=== PATIENT | male | born 1955 ===

== ENCOUNTER 2017-03-19 08:37 | Inpatient (IN) | payer MEDICARE ==
[2017-03-19] MEDS ORDERED: Sodium Chloride 0.9% 1,000 ML IV STA ×2 (09:37→11:18)
--- NOTE | 2017-03-19 10:49 | CT ---
PROCEDURE: CT Abdomen and Pelvis without intravenous contrast HISTORY: weakness, failure to thrive COMPARISON: None. TECHNIQUE: Unenhanced study. Neither oral nor intravenous contrast administered. Sensitivity and specificity for acute inflammatory processes limited by the absence of oral and intravenous contrast. . Radiation dose: Total exam DLP = 710.71 mGy-cm. This CT exam was performed using one or more of the following dose reduction techniques: Automated exposure control, adjustment of the mA and/or kV according to patient size, and/or use of iterative reconstruction technique. FINDINGS: LOWER THORAX: Subsegmental right middle lobe infiltrate. LIVER: Unremarkable. No gross lesion or ductal dilatation. GALLBLADDER AND BILE DUCTS: Unremarkable. PANCREAS: Unremarkable. No gross lesion or ductal dilatation. SPLEEN: Unremarkable. ADRENALS: Unremarkable. No mass. KIDNEYS AND URETERS: Unremarkable. No hydronephrosis. No solid mass. VASCULATURE: Unremarkable. No aortic aneurysm. BOWEL: Fecal impaction/ constipation without mechanical obstruction. APPENDIX: Unremarkable. Normal appendix. PERITONEUM: Unremarkable. No free fluid. No free air. LYMPH NODES: Unremarkable. No enlarged lymph nodes. BLADDER: Unremarkable. REPRODUCTIVE: Unremarkable. BONES: No acute fracture. OTHER FINDINGS: None. IMPRESSION: No significant or acute findings to account for/ related to the clinical presentation. Limitations of the current examination: Absence of oral contrast and IV contrast. Patient related motion induced artifact.
--- NOTE | 2017-03-19 10:50 | RAD ---
PROCEDURE: CHEST RADIOGRAPH, 1 VIEW. 09:40. Technique: Single view portable semi erect @ HISTORY: weakness COMPARISON: None available. FINDINGS: LUNGS: Clear. PLEURA: No pneumothorax or pleural fluid seen. CARDIOVASCULAR: Normal. OSSEOUS STRUCTURES: No significant abnormalities. VISUALIZED UPPER ABDOMEN: Normal. OTHER FINDINGS: None. IMPRESSION: No active disease.
[2017-03-19 10:51] LABS: MONO # 1.2 K/uL (0.0-0.8)
--- NOTE | 2017-03-19 10:51 | C.PDOC ---
History Of Present Illness 61 year old male with a Hx of head injury in 2006 who presents to the ER because as per he has had become increasingly weaker over the past month. states over the years the patient has declined in cognitive function; she states 2 years ago he because nonverbal and is unable to control urine or bowel movements, however, reports that he has always been physically strong until now. reports patient has been losing an increased amount of weight and has become more confused; she brought in in today because he did not eat or drink yesterday. denies patient has had fever, chills, or vomiting. Time Seen by Provider: 03/19/17 09:12 Chief Complaint (Nursing): Weakness/Neurological Deficit History Per: Family History/Exam Limitations: no limitations Onset/Duration Of Symptoms: Days Current Symptoms Are (Timing): Still Present Seizure Or Post-ictal Symptoms: None Fall Associated With With Symptoms: No Recent travel outside of the [place]: No - Symptoms Of CVA Associated Symptoms: New Confusion. denies: Impaired Speech, Seizure Activity, New Vision Deficit(Left), New Vision Deficit(Right), Decreased Ability To Walk, Other Recent Aspirin Use: Unknown Current Coumadin Use?: Unknown Recent Head Trauma: No Past Medical History Reviewed: Historical Data, Nursing Documentation, Vital Signs Vital Signs: Last Vital Signs Temp 97.9 F 03/19/17 11:18 Pulse 120 H 03/19/17 13:36 Resp 24 03/19/17 13:36 BP 113/75 03/19/17 13:36 Pulse Ox 98 03/19/17 13:36 - Medical History PMH: No Chronic Diseases Surgical History: No Surg Hx Family History: States: Unknown Family Hx - Social History Hx Alcohol Use: No Hx Substance Use: No Review Of Systems Constitutional: Positive for: Weight loss. Negative for: Fever, Chills Gastrointestinal: Negative for: Vomiting, Abdominal Pain Neurological: Positive for: Confusion Physical Exam - Physical Exam Appears: Non-toxic, Chronically Ill, Other (Uncomfortable, Malnourished) Skin: Warm, Dry Head: Atraumatic, Normacephalic Eye(s): bilateral: Normal Inspection Oral Mucosa: Dry Neck: Normal, Supple Chest: Symmetrical, No Tenderness Cardiovascular: Rhythm Regular, No Murmur Respiratory: Normal Breath Sounds, No Rales, No Rhonchi, No Wheezing Gastrointestinal/Abdominal: Soft, No Tenderness, No Guarding Extremity: Other (Ecchymosis to right shoulder. Refusing to move right arm.) Neurological/Psych: No Oriented x3 (awake and alert, not verbal) ED Course And Treatment - Laboratory Results Result Diagrams: 03/19/17 10:46 03/19/17 10:46 O2 Sat by Pulse Oximetry: 98 (Room air) Pulse Ox Interpretation: Normal - Radiology CXR: Interpreted by Me, Viewed By Me CXR Interpretation: Yes: No Acute Disease - Other Rad Right Shoulder X-ray X-Ray: Viewed By Me, Read By Radiologist Interpretation: PROCEDURE: Radiographs of the Right Shoulder. HISTORY: ecchymosis, ? injury. COMPARISON: No prior. FINDINGS: BONES: Normal. No fracture. JOINTS: Normal. Glenohumeral and acromioclavicular joints preserved. No osteoarthritis. SOFT TISSUES: Normal. OTHER FINDINGS: None. IMPRESSION: Normal radiographs of the right shoulder. - CT Scan/US Head CT Other Rad Studies (CT/US): Read By Radiologist, Radiology Report Reviewed CT/US Interpretation: FINDINGS: HEMORRHAGE: No intracranial hemorrhage. BRAIN : No mass effect or edema. Moderate atrophy greater than expected for patient age. No evidence of acute infarct. VENTRICLES: Dilatation of the 3rd and lateral ventricles without dilatation of the 4th ventricle. Likely due to central volume loss consistent with surrounding atrophy. Cannot rule out chronic compensated obstructive hydrocephalus. Questionable very small arachnoid cyst in the right temporal fossa. CALVARIUM: Unremarkable. PARANASAL SINUSES: Unremarkable as visualized. No significant inflammatory changes. MASTOID AIR CELLS: Unremarkable as visualized. No inflammatory changes. OTHER FINDINGS: There is deformity of the normal shape of the right and left globe consistent with either staphyloma or coloboma. IMPRESSION: No intracranial mass, hemorrhage or evidence of acute infarct. Atrophy greater than expected for patient age. Mild ventricular dilatation most likely secondary to central volume loss. Cannot rule out chronic compensated hydrocephalus. Possible small right temporal arachnoid cyst. Bilateral coloboma /staphyloma incidentally noted. CT abd/pel Other Rad Studies (CT/US): Read By Radiologist, Radiology Report Reviewed CT/US Interpretation: FINDINGS: LOWER THORAX: Subsegmental right middle lobe infiltrate. LIVER: Unremarkable. No gross lesion or ductal dilatation. GALLBLADDER AND BILE DUCTS: Unremarkable. PANCREAS: Unremarkable. No gross lesion or ductal dilatation. SPLEEN: Unremarkable. ADRENALS: Unremarkable. No mass. KIDNEYS AND URETERS: Unremarkable. No hydronephrosis. No solid mass. VASCULATURE: Unremarkable. No aortic aneurysm. BOWEL: Fecal impaction/ constipation without mechanical obstruction. APPENDIX: Unremarkable. Normal appendix. PERITONEUM: Unremarkable. No free fluid. No free air. LYMPH NODES: Unremarkable. No enlarged lymph nodes. BLADDER: Unremarkable. REPRODUCTIVE : Unremarkable. BONES: No acute fracture. OTHER FINDINGS: None. IMPRESSION : No significant or acute findings to account for/ related to the clinical presentation. Limitations of the current examination: Absence of oral contrast and IV contrast. Patient related motion induced artifact. Progress Note: Head CT, abdominal pain, CXR, abd/pel CT, right shoulder x-ray. blood work, and urinalysis ordered. IV fluids administered. patient found to have elevated WBC and severely elevated Na. Case was d/w hospitalist who requested patient to be admitted to tele to . Disposition - Disposition Disposition Time: 11:31 Condition: SERIOUS - Clinical Impression Clinical Impression: Weakness, Hypernatremia, Leucocytosis - Scribe Statement The provider has reviewed the documentation as recorded by the Scribalexandra Forte All medical record entries made by the Joeibalexandra were at my direction and personally dictated by me. I have reviewed the chart and agree that the record accurately reflects my personal performance of the history, physical exam, medical decision making, and the department course for this patient. I have also personally directed, reviewed, and agree with the discharge instructions and disposition.
--- NOTE | 2017-03-19 10:51 | RAD ---
PROCEDURE: Radiographs of the Right Shoulder HISTORY: ecchymosis, ? injury COMPARISON: No prior. FINDINGS: BONES: Normal. No fracture. JOINTS: Normal. Glenohumeral and acromioclavicular joints preserved. No osteoarthritis. SOFT TISSUES: Normal. OTHER FINDINGS: None. IMPRESSION: Normal radiographs of the right shoulder. No preliminary report provided by emergency department personnel.
[2017-03-19 11:01] LABS: ALBUMIN 3.7 g/dL (3.5-5.0)
[2017-03-19 11:04] LABS: ALB/GLOB RATIO 0.9 (1.0-2.1); CALCIUM 9.2 mg/dl (8.6-10.4)
[2017-03-19 11:05] LABS: INR 1.3
--- NOTE | 2017-03-19 11:06 | CT ---
PROCEDURE: CT HEAD WITHOUT CONTRAST. HISTORY: weakness, dementia COMPARISON: None available. TECHNIQUE: Axial computed tomography images were obtained through the head/brain without intravenous contrast. Radiation dose: Total exam DLP = 1213.60 mGy-cm. This CT exam was performed using one or more of the following dose reduction techniques: Automated exposure control, adjustment of the mA and/or kV according to patient size, and/or use of iterative reconstruction technique. FINDINGS: HEMORRHAGE: No intracranial hemorrhage. BRAIN: No mass effect or edema. Moderate atrophy greater than expected for patient age. No evidence of acute infarct. VENTRICLES: Dilatation of the 3rd and lateral ventricles without dilatation of the 4th ventricle. Likely due to central volume loss consistent with surrounding atrophy. Cannot rule out chronic compensated obstructive hydrocephalus. Questionable very small arachnoid cyst in the right temporal fossa. CALVARIUM: Unremarkable. PARANASAL SINUSES: Unremarkable as visualized. No significant inflammatory changes. MASTOID AIR CELLS: Unremarkable as visualized. No inflammatory changes. OTHER FINDINGS: There is deformity of the normal shape of the right and left globe consistent with either staphyloma or coloboma. IMPRESSION: No intracranial mass, hemorrhage or evidence of acute infarct. Atrophy greater than expected for patient age. Mild ventricular dilatation most likely secondary to central volume loss. Cannot rule out chronic compensated hydrocephalus. Possible small right temporal arachnoid cyst. Bilateral coloboma/staphyloma incidentally noted.
[2017-03-19 11:16] LABS: TROPONIN I 0.083 ng/mL (0.00-0.120)
[2017-03-19 11:18] LABS: CK-MB 0.26 ng/mL (0.0-3.38)
[2017-03-19 11:20] LABS: BASO % 0.1 % (0.0-2.0); EOS % 0.1 % (0.0-4.0); HEMOGLOBIN 13.5 g/dL (12.0-18.0); LYMPH # 1.7 K/uL (1.0-4.3); LYMPH % 7.8 % (20.0-40.0); MEAN CELL VOLUME 77.1 fL (80.0-94.0); MEAN CORPUSCULAR HEMOGLOBIN 23.8 pg (27.0-31.0); MEAN CORPUSCULAR HGB CONC 30.8 g/dL (33.0-37.0); MEAN PLATELET VOLUME 10.4 fL (7.2-11.7); MONO % 5.2 % (0.0-10.0); NEUT # 19.4 K/uL (1.8-7.0); NEUT % 86.8 % (50.0-75.0); PLATELET COUNT 206 K/uL (130-400); RBC 5.68 Mil/uL (4.40-5.90); WHITE BLOOD COUNT 22.4 K/uL (4.8-10.8)
[2017-03-19] MEDS ORDERED: Sodium Chloride 0.9% 0 ML ONE (11:29)
[2017-03-19 11:39] LABS: LYMPHOCYTE 9 % (20-40); MONOCYTE 6 % (0-10); NEUTROPHIL 85 % (50-75); PLATELET ESTIMATE NORMAL (NORMAL); TOTAL CELLS COUNTED 100
[2017-03-19 11:40] LABS: ANISOCYTOSIS SLIGHT; POIKILOCYTOSIS SLIGHT
[2017-03-19 11:58] LABS: SQUAMOUS EPITHIAL < 1 /hpf (0-5); URINE BILIRUBIN NEGATIVE (NEGATIVE); URINE BLOOD NEGATIVE (NEGATIVE); URINE CLARITY Hazy (Clear); URINE COLOR Yellow (YELLOW); URINE GLUCOSE (UA) NORMAL (Normal); URINE HYALINE CAST 0-2 /lpf (0-2); URINE LEUKOCYTE ESTERASE NEG Leu/uL (Negative); URINE NITRATE NEGATIVE (NEGATIVE); URINE PROTEIN NEGATIVE (NEGATIVE); URINE UROBILINOGEN NORMAL mg/dL (0.2-1.0)
[2017-03-19] MEDS ORDERED: Sodium Chloride 0.45% 1,000 ML IV SCH (12:45)
[2017-03-19 13:17] LABS: VENOUS BLOOD GAS BASE EXCESS 2.2 mmol/L (0.0-2.0); VENOUS BLOOD GAS PCO2 54 mmHg (40-60); VENOUS BLOOD GAS PO2 26 mm/Hg (30-55); VENOUS BLOOD PH 7.34 (7.32-7.43)
[2017-03-19] MEDS ORDERED: cefTRIAXone IV 1 gm in Dextros 50 ML IVPB ONE (13:17)
[2017-03-19] MEDS ORDERED: Sodium Chloride 0.9% 1,000 ML ONE (13:17)
[2017-03-19] MEDS ORDERED: Sodium Chloride 0.45% 1,000 ML IV ONE (13:56)
[2017-03-19] MEDS ORDERED: Piperacill/Tazo 3.375gm in Dex 3.375 GM/50 ML BAG IVPB SCH (15:00)
[2017-03-19] MEDS: Sodium Chloride 0.45% 1,000 ML IV SCH ×2 (16:09→17:31)
[2017-03-19] MEDS: Piperacill/Tazo 2.25gm in Dex 2.25 GM/50 ML BAG IVPB SCH ×2 (18:36→23:17)
[2017-03-19] MEDS: Vancomycin 500mg/D5W 100 ml 500 MG/100 ML BAG IVPB SCH (18:37)
--- NOTE | 2017-03-19 21:09 | CP.PCM.HP ---
<Jeanie Gramajo - Last Filed: 03/19/17 21:41> History of Present Illness - History of Present Illness History of Present Illness: CC: "Weakness, Neurological Deficit " HPI: 61 year old male with a Hx of head injury in 2006 who presents to the ER because as per he has had become increasingly weaker over the past month. states over the years the patient has declined in cognitive function; she states 2 years ago he because nonverbal and is unable to control urine or bowel movements, however, reports that he has always been physically strong until now. reports patient has been losing an increased amount of weight and has become more confused; she brought in in today because he did not eat or drink yesterday. denies patient has had fever, chills, or vomiting. Patient is non-verbal and was not at bedside during the encounter therefore HPI as per ED was used. 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 smoker Present on Admission - Present on Admission Any Indicators Present on Admission: No Past Patient History - Past Social History Smoking Status: Former Smoker - NEUROLOGICAL Hx Neurological Disorder: Yes - PSYCHIATRIC Hx Substance Use: No - SURGICAL HISTORY Hx Herniorrhaphy: Yes - ANESTHESIA Hx Anesthesia: Yes Hx Anesthesia Reactions: No Hx Malignant Hyperthermia: No Meds Allergies/Adverse Reactions: Allergies Allergy/AdvReac Type Severity Reaction Status Date / Time No Known Allergies Allergy Verified 03/19/17 08:51 Physical Exam - Constitutional Appears: Other Additional comments: Non-verbal, somnolent - Head Exam Head Exam: NORMAL INSPECTION - ENT Exam ENT Exam: Mucous Membranes Dry - Respiratory Exam Respiratory Exam: NORMAL BREATHING PATTERN (Limited exam) - Cardiovascular Exam Cardiovascular Exam: REGULAR RHYTHM, +S1, +S2 - GI/Abdominal Exam GI & Abdominal Exam: Normal Bowel Sounds, Soft - Extremities Exam Extremities exam: Positive for: pedal pulses present - Neurological Exam Neurological exam: Motor Sensory Deficit - Skin Skin Exam: Dry, Normal Color, Warm Results - Vital Signs Recent Vital Signs: Last Vital Signs Temp 98.7 F 03/19/17 15:08 Pulse 108 H 03/19/17 15:08 Resp 18 03/19/17 15:08 BP 116/80 03/19/17 15:08 Pulse Ox 100 03/19/17 15:08 - Labs Result Diagrams: 03/19/17 10:46 03/19/17 10:46 Labs: Laboratory Results - last 24 hr 03/19/17 03/19/17 11:45 13:09 pO2 26 L VBG pH 7.34 VBG pCO2 54 VBG HCO3 25.2 VBG Total CO2 30.8 H VBG O2 Sat (Calc) 45.4 VBG Base Excess 2.2 H VBG Potassium 3.8 Sodium 184.0 H* Chloride 145.0 H Glucose 110 Lactate 1.9 Crit Value Called To Dr.phem pike Crit Value Called By lesly Gonzalez,carlos Crit Value Read Back Y Blood Gas Notified Time 1320 Venous Blood Potassium 3.8 Urine Color Yellow Urine Clarity Hazy Urine pH 5.0 Ur Specific [place] 1.017 Urine Protein Negative Urine Glucose (UA) Normal Urine Ketones Negative Urine Blood Negative Urine Nitrate Negative Urine Bilirubin Negative Urine Urobilinogen Normal Ur Leukocyte Esterase Neg Urine WBC (Auto) 2 Urine RBC (Auto) 1 Ur Squamous Epith Cells < 1 Hyaline Casts 0-2 Assessment & Plan (1) Weakness Assessment and Plan: Secondary to significant dehydration Started on 1/2NS @ 150mls/hr U/A : Negative Head CT: No intracranial mass, hemorrhage or evidence of acute infarct. Atrophy greater than expected for patient age. Mild ventricular dilatation most likely secondary to central volume loss. Cannot rule out chronic compensated hydrocephalus. Possible small right temporal arachnoid cyst. Bilateral coloboma/staphyloma incidentally noted. Chest -X ray: No active disease Abdomen/pelvis CT: No significant or acute findings to account for/ related to the clinical presentation. Limitations of the current examination: Absence of oral contrast and IV contrast. Patient related motion induced artifact. Status: Acute (2) Hypernatremia Assessment and Plan: Possibly secondary to severe dehydration ABG (Sodium: 184); Chemistry (Sodium 176) 1/2NS@ 150mls/hr Goal: to drop by <10 points in 24 hours * Stop fluids if sodium level drops to 170-160 within 24 hours * Monitor Na levels closely * F/U repeat CMP at 12:00am Status: Acute (3) Leukocytosis Assessment and Plan: WBC: 22.4 Neutrophils: 86.8 Lactate 1.8 UA: Negative Vanco 500mg IVPB q12H D5W Zosyn 2.25mg IVPB Q6H D5W 1/2NS @150mls/hr Pending blood culture Pending urine culture Status: Acute (4) ELIDA (acute kidney injury) Assessment and Plan: Possibly secondary to severe dehydration BUN/CR: 53/1.8 1/2NS@150mls/hr Status: Acute (5) History of traumatic head injury Assessment and Plan: Worsening neurologic deficit Non-verbal for the past two years Urinary and fecal incontinence Not oriented to place and time Status: Acute (6) Prophylactic measure Assessment and Plan: SCD Heparin 5000 units SC q12h Pepcid 20MG IV daily Status: Acute <Edis Denton H - Last Filed: 03/20/17 09:40> Results - Vital Signs Recent Vital Signs: Last Vital Signs Temp 97.3 F L 03/20/17 07:30 Pulse 110 H 03/20/17 07:30 Resp 18 03/20/17 07:30 BP 102/59 L 03/20/17 07:30 Pulse Ox 100 03/20/17 07:30 - Labs Result Diagrams: 03/19/17 10:46 03/20/17 01:29 Labs: Laboratory Results - last 24 hr 03/19/17 03/19/17 03/20/17 11:45 13:09 01:29 pO2 26 L VBG pH 7.34 VBG pCO2 54 VBG HCO3 25.2 VBG Total CO2 30.8 H VBG O2 Sat (Calc) 45.4 VBG Base Excess 2.2 H VBG Potassium 3.8 Sodium 184.0 H* 175 H* Chloride 145.0 H 139 H Glucose 110 Lactate 1.9 Crit Value Called To Dr.phem pike Crit Value Called By lesly Gonzalez,manager discovery Crit Value Read Back Y Blood Gas Notified Time 1320 Potassium 3.5 L Carbon Dioxide 24 Anion Gap 16 BUN 44 H Creatinine 1.3 Est GFR ( Amer) > 60 Est GFR (Non-Af Amer) 56 Random Glucose 105 Calcium 8.0 L Venous Blood Potassium 3.8 Urine Color Yellow Urine Clarity Hazy Urine pH 5.0 Ur Specific [place] 1.017 Urine Protein Negative Urine Glucose (UA) Normal Urine Ketones Negative Urine Blood Negative Urine Nitrate Negative Urine Bilirubin Negative Urine Urobilinogen Normal Ur Leukocyte Esterase Neg Urine WBC (Auto) 2 Urine RBC (Auto) 1 Ur Squamous Epith Cells < 1 Hyaline Casts 0-2 Attending/Attestation - Attestation I have personally seen and examined this patient.: Yes I have fully participated in the care of the patient.: Yes I have reviewed all pertinent clinical information: Yes Notes (Text): Medical attending: Patient was seen and examined by me, agree with the above note by medical screener. The patient was in the ER bed 8 and a, he had already had a 2 L bolus of normal saline given. He had not yet gotten blood cultures are into biotics we've started this. The patient was not responding to any commands or stimuli, he appeared to be very dry on her physical exam. From what I understand the patient has had been nonverbal for the past 2-1/2 years and has recently has not been eating or drinking His sodium is high at 176, and he also has a elevated white blood cell count with a left shift. Working give the patient saline it's can be half-normal saline and [place] have to monitor the CMP to prevent it from dropping down to quickly over a 24-hour period. Furthermore will get blood cultures, urine cultures, and place the patient IV into biotics. Since he does have this very elevated white blood cell count. I checked a VBG just to see if he could have a high lactic acid level and this was normal. He also had a normal pH as well on the VBG We'll also get a Benjamin catheter in to monitor ins and outs. Also need a neonatal social worker evaluation as well, I don't know what the patient's family statuses were if they're able to take care of him at home. Thank you very much, Edsi Denton
[2017-03-20 01:46] LABS: GFR AFRICAN-AMERICAN > 60; GFR NON-AFRICAN AMERICAN 56
[2017-03-20 01:47] LABS: BLOOD UREA NITROGEN 44 mg/dL (9-20)
[2017-03-20] MEDS: Sodium Chloride 0.45% 1,000 ML IV SCH ×6 (03:00→22:46)
[2017-03-20] MEDS: Piperacill/Tazo 2.25gm in Dex 2.25 GM/50 ML BAG IVPB SCH ×4 (04:34→22:47)
[2017-03-20] MEDS: Vancomycin 500mg/D5W 100 ml 500 MG/100 ML BAG IVPB SCH ×2 (05:18→16:36)
--- NOTE | 2017-03-20 16:03 | CP.PCM.PN ---
Subjective - Date & Time of Evaluation Date of Evaluation: 03/20/17 Time of Evaluation: 09:20 - Subjective Subjective: Medicine Note (PGY 1) : Dr. Denton's Note Patient was seen and examined at bedside with his present. Patient is non- verbal, thus, reiterate patient's history. Patient remains somnolent, while demonstrating some agitation by tossing, moaning and flexing at the hip and knee while kicking out. Patient's reports that patient has deteriorate over the past week. Objective - Vital Signs/Intake and Output Vital Signs (last 24 hours): Temp Pulse Resp BP Pulse Ox 97.3 F L 87 18 102/59 L 100 03/20/17 07:30 03/20/17 13:29 03/20/17 07:30 03/20/17 07:30 03/20/17 07:30 Intake and Output: 03/20/17 03/20/17 06:59 18:59 Intake Total 2800 1650 Output Total 100 Balance 2700 1650 - Medications Medications: Current Medications Famotidine (Pepcid) 20 mg IVP DAILY [facility] Last Admin: 03/20/17 10:31 Dose: 20 mg Heparin Sodium (Porcine) (Heparin) 5,000 units SC Q12 TETE Last Admin: 03/20/17 10:30 Dose: 5,000 units Vancomycin HCl/Dextrose (Vancocin) 500 mg in 100 mls @ 67 mls/hr IVPB Q12H TETE Stop: 03/24/17 17:31 Last Admin: 03/20/17 05:18 Dose: 67 mls/hr Piperacillin Sod/Tazobactam Sod (Zosyn 2.25 Gm Iv Premix) 2.25 gm in 50 mls @ 100 mls/hr IVPB Q6H TETE Last Admin: 03/20/17 10:37 Dose: 100 mls/hr Sodium Chloride (Sodium Chloride 0.45%) 1,000 mls @ 200 mls/hr IV .Q5H [facility] Last Admin: 03/20/17 13:42 Dose: Not Given Potassium Chloride (Potassium Chloride 20 Meq/100 Ml) 20 meq in 100 mls @ 50 mls/hr IVPB ONCE ONE Stop: 03/20/17 18:01 - Labs Labs: 03/20/17 01:29 PT 15.0 SECONDS (9.7-12.2) H 03/19/17 10:46 INR 1.3 03/19/17 10:46 APTT 38 SECONDS (21-34) H 03/19/17 10:46 - Constitutional Appears: Agitated, Other (Mild distress ) - Respiratory Exam Respiratory Exam: NORMAL BREATHING PATTERN (Limited exam) - Cardiovascular Exam Cardiovascular Exam: REGULAR RHYTHM, +S1, +S2 - GI/Abdominal Exam GI & Abdominal Exam: Soft, Normal Bowel Sounds - Extremities Exam Extremities Exam: Normal Capillary Refill, Normal Inspection. absent: Pedal Edema - Neurological Exam Neurological Exam: absent: Alert, Awake, Oriented x3 - Psychiatric Exam Psychiatric exam: Agitated - Skin Skin Exam: Dry, Normal Color, Warm Assessment and Plan (1) Weakness Assessment & Plan: Improving Secondary to significant dehydration Started on 1/2NS @ 150mls/hr------> Adjusted to 200mls/hr (03/20/17) U/A : Negative Head CT: No intracranial mass, hemorrhage or evidence of acute infarct. Atrophy greater than expected for patient age. Mild ventricular dilatation most likely secondary to central volume loss. Cannot rule out chronic compensated hydrocephalus. Possible small right temporal arachnoid cyst. Bilateral coloboma/staphyloma incidentally noted. Chest -X ray: No active disease Abdomen/pelvis CT: No significant or acute findings to account for/ related to the clinical presentation. Limitations of the current examination: Absence of oral contrast and IV contrast. Patient related motion induced artifact Status: Acute (2) Hypernatremia Assessment & Plan: Possibly secondary to severe dehydration ABG (Sodium: 184); Chemistry (Sodium 176) 1/2NS@ 150mls/hr---> adjusted to 200mls/hr (03/20/17) Goal: to drop by <10meq within 24 hours * Stop fluids if sodium level drops > 10 meq within 24 hours * Monitor Na levels closely * F/U repeat CMP at 12:00am (03/20/17---174), repeat CMP @ 5pm (03/20/17) Status: Acute (3) Hypokalemia Assessment & Plan: K+ 3.6----> 3.5 Repleted with KCL 20meq IV once Monitor Status: Acute (4) Leukocytosis Assessment & Plan: WBC: 22.4 on admission Neutrophils: 86.8 on admission Lactate 1.8 on admission Vanco 500mg IVPB q12H D5W Zosyn 2.25mg IVPB Q6H D5W 1/2NS @150mls/hr---> Adjusted to 200mls/hr (03/20/17) UA: Negative Blood culture (03/19/17): No Growth Urine culture (03/19/17): No Growth F/u CBC in the AM Status: Acute (5) ELIDA (acute kidney injury) Assessment & Plan: Improving Possibly secondary to severe dehydration BUN/CR: 53/1.8 ----> 44/1.3 1/2NS@150mls/hr--- Adjusted to 200mls/hr (03/20/17) Status: Acute (6) History of traumatic head injury Assessment & Plan: Worsening neurologic deficit Non-verbal for the past two years Urinary and fecal incontinence Not oriented to place and time Status: Acute (7) Prophylactic measure Assessment & Plan: SCD Heparin 5000 units SC q12h Pepcid 20MG IV daily Swallow Evaluation and Treat Status: Acute
[2017-03-20 18:17] LABS: ALBUMIN 2.8 g/dL (3.5-5.0)
[2017-03-20 18:20] LABS: GFR AFRICAN-AMERICAN > 60; GFR NON-AFRICAN AMERICAN 56
[2017-03-20 18:22] LABS: ALB/GLOB RATIO 0.8 (1.0-2.1); ALT/SGPT 34 U/L (21-72); AST/SGOT 32 U/L (17-59); BLOOD UREA NITROGEN 36 mg/dL (9-20); CALCIUM 7.5 mg/dl (8.6-10.4)
[2017-03-20 20:20] LABS: BASO % 0.2 % (0.0-2.0); EOS # 0.3 K/uL (0.0-0.7); EOS % 2.4 % (0.0-4.0); LYMPH # 0.9 K/uL (1.0-4.3); LYMPH % 8.1 % (20.0-40.0); MEAN CELL VOLUME 77.7 fL (80.0-94.0); MEAN CORPUSCULAR HEMOGLOBIN 23.5 pg (27.0-31.0); MEAN CORPUSCULAR HGB CONC 30.3 g/dL (33.0-37.0); MEAN PLATELET VOLUME 11.2 fL (7.2-11.7); MONO # 0.6 K/uL (0.0-0.8); MONO % 4.9 % (0.0-10.0); NEUT # 9.8 K/uL (1.8-7.0); NEUT % 84.4 % (50.0-75.0); NRBC % 0.3 % (0.0-2.0); PLATELET COUNT 131 K/uL (130-400); RBC 4.87 Mil/uL (4.40-5.90); RED CELL DISTRIBUTION WIDTH 18.8 % (11.5-14.5)
[2017-03-20 20:21] LABS: HEMOGLOBIN 11.6 g/dL (12.0-18.0); WHITE BLOOD COUNT 11.6 K/uL (4.8-10.8)
[2017-03-20 22:23] LABS: BANDS 5 % (0-2); HYPOCHROMIC SLIGHT; LYMPHOCYTE 4 % (20-40); MICROCYTOSIS SLIGHT; MONOCYTE 3 % (0-10); NEUTROPHIL 88 % (50-75); PLATELET ESTIMATE NORMAL (NORMAL); TOTAL CELLS COUNTED 100
[2017-03-20 22:24] LABS: ANISOCYTOSIS SLIGHT; LARGE PLATELETS PRESENT
[2017-03-21] MEDS: Sodium Chloride 0.45% 1,000 ML IV SCH (03:53)
[2017-03-21] MEDS: Piperacill/Tazo 2.25gm in Dex 2.25 GM/50 ML BAG IVPB SCH ×4 (05:00→23:24)
[2017-03-21] MEDS: Vancomycin 500mg/D5W 100 ml 500 MG/100 ML BAG IVPB SCH ×2 (06:11→17:51)
--- NOTE | 2017-03-21 06:21 | CP.PCM.PN ---
<TrussvilleAbril coleashley Haley - Last Filed: 03/21/17 19:39> Subjective - Date & Time of Evaluation Date of Evaluation: 03/21/17 Time of Evaluation: 09:05 - Subjective Subjective: Medicine Note (PGY 1) : Dr. Denton's note Patient was seen and examined at beside. Patient is non-verbal and remains somnolent. Patient was very agitated last night. Patient's was not at bedside therefore, I was unable to obtain further details and ROS. Objective - Vital Signs/Intake and Output Vital Signs (last 24 hours): Temp Pulse Resp BP Pulse Ox 98.1 F 79 20 90/59 L 96 03/20/17 23:25 03/20/17 23:25 03/20/17 23:25 03/20/17 23:25 03/20/17 23:25 Intake and Output: 03/20/17 03/21/17 18:59 06:59 Intake Total 1650 1900 Output Total 1325 Balance 1650 575 - Medications Medications: Current Medications Famotidine (Pepcid) 20 mg IVP DAILY [facility] Last Admin: 03/20/17 10:31 Dose: 20 mg Heparin Sodium (Porcine) (Heparin) 5,000 units SC Q12 [facility] Last Admin: 03/20/17 22:00 Dose: Not Given Vancomycin HCl/Dextrose (Vancocin) 500 mg in 100 mls @ 67 mls/hr IVPB Q12H [facility] Stop: 03/24/17 17:31 Last Admin: 03/21/17 06:11 Dose: 67 mls/hr Piperacillin Sod/Tazobactam Sod (Zosyn 2.25 Gm Iv Premix) 2.25 gm in 50 mls @ 100 mls/hr IVPB Q6H [facility] Last Admin: 03/21/17 05:00 Dose: 100 mls/hr Sodium Chloride (Sodium Chloride 0.45%) 1,000 mls @ 200 mls/hr IV .Q5H [facility] Last Admin: 03/21/17 03:53 Dose: 200 mls/hr - Labs Labs: 03/20/17 17:59 03/20/17 17:59 PT 15.0 SECONDS (9.7-12.2) H 03/19/17 10:46 INR 1.3 03/19/17 10:46 APTT 38 SECONDS (21-34) H 03/19/17 10:46 - Constitutional Appears: No Acute Distress - Head Exam Head Exam: ATRAUMATIC - Eye Exam Eye Exam: EOMI - ENT Exam ENT Exam: Mucous Membranes Moist, Normal Exam - Respiratory Exam Respiratory Exam: NORMAL BREATHING PATTERN (Limited exam) - Cardiovascular Exam Cardiovascular Exam: REGULAR RHYTHM, +S1, +S2 - Extremities Exam Extremities Exam: Normal Capillary Refill, Normal Inspection. absent: Pedal Edema - Neurological Exam Neurological Exam: absent: Alert, Awake, Oriented x3 - Skin Skin Exam: Dry, Normal Color, Warm Assessment and Plan (1) Weakness Assessment & Plan: Improving Secondary to significant dehydration Started on 1/2NS @ 150mls/hr------> Adjusted to 200mls/hr (03/20/17): D/C due to significant decrease in Na+ level (176-154) U/A : Negative) Blood culture: No growth Head CT: No intracranial mass, hemorrhage or evidence of acute infarct. Atrophy greater than expected for patient age. Mild ventricular dilatation most likely secondary to central volume loss. Cannot rule out chronic compensated hydrocephalus. Possible small right temporal arachnoid cyst. Bilateral coloboma/staphyloma incidentally noted. Chest -X ray: No active disease Abdomen/pelvis CT: No significant or acute findings to account for/ related to the clinical presentation. Limitations of the current examination: Absence of oral contrast and IV contrast. Patient related motion induced artifact Status: Acute (2) Hypernatremia Assessment & Plan: Resolving Possibly secondary to severe dehydration ABG (Sodium: 184); Chemistry (Sodium 176)----> 154(03/21/17) 1/2NS@ 150mls/hr---> adjusted to 200mls/hr (03/20/17)-----Discontinued due to significant decrease in Na+ levels (176-154) Goal: to drop by <10meq within 24 hours * Stop fluids if sodium level drops > 10 meq within 24 hours: stopped 03/21/17 * Monitor Na+ levels closely * F/u repeat CMP at midnight Status: Acute (3) Hypokalemia Assessment & Plan: K+ 3.6----> 3.5----> 3.1 Repleted with KCL 20meq IV once Repleted with KCL 60 meq IV in total (7/12/17)---> 20 meq @ 10:11am and then 40meq @ 19:31 Monitor K+ level f/u repeat BMP in the am Status: Acute (4) Leukocytosis Assessment & Plan: Resolving WBC: 22.4 on admission-----> 8.3 (03/21/17) Neutrophils: 86.8 on admission ---> 82.7 (03/21/17) Lactate 1.8 on admission Continue Vanco 500mg IVPB q12H D5W Continue Zosyn 2.25mg IVPB Q6H D5W 1/2NS @150mls/hr---> Adjusted to 200mls/hr (03/20/17)----D/C (03/21/17) UA: Negative Blood culture (03/19/17): No Growth Urine culture (03/19/17): No Growth Status: Acute (5) ELDIA (acute kidney injury) Assessment & Plan: Improving Possibly secondary to severe dehydration BUN/CR: 53/1.8 ----> 44/1.3----> 27/1.2 1/2NS@150mls/hr--- Adjusted to 200mls/hr (03/20/17)---> d/c (03/21/17) Status: Acute (6) History of traumatic head injury Assessment & Plan: Unchanged Worsening neurological deficit Non-verbal for the past two years Urinary and fecal incontinence Not oriented to place and time Status: Acute (7) Prophylactic measure Assessment & Plan: SCD Heparin 5000 units SC q12h Pepcid 20MG IV daily Swallow Evaluation and Treat Status: Acute <Edis Denton H - Last Filed: 03/22/17 07:35> Objective - Vital Signs/Intake and Output Vital Signs (last 24 hours): Temp Pulse Resp BP Pulse Ox 98.1 F 72 20 111/67 96 03/22/17 04:10 03/22/17 04:10 03/22/17 04:10 03/22/17 04:10 03/22/17 04:10 Intake and Output: 03/22/17 03/22/17 06:59 18:59 Intake Total 750 Output Total 1750 Balance -1000 - Medications Medications: Current Medications Famotidine (Pepcid) 20 mg IVP DAILY [facility] Last Admin: 03/21/17 10:15 Dose: 20 mg Heparin Sodium (Porcine) (Heparin) 5,000 units SC Q12 [facility] Last Admin: 03/21/17 21:52 Dose: 5,000 units Vancomycin HCl/Dextrose (Vancocin) 500 mg in 100 mls @ 67 mls/hr IVPB Q12H [facility] Stop: 03/24/17 17:31 Last Admin: 03/22/17 07:02 Dose: 67 mls/hr Piperacillin Sod/Tazobactam Sod (Zosyn 2.25 Gm Iv Premix) 2.25 gm in 50 mls @ 100 mls/hr IVPB Q6H [facility] Last Admin: 03/22/17 05:27 Dose: 100 mls/hr - Labs Labs: 03/21/17 07:04 03/22/17 02:28 PT 15.0 SECONDS (9.7-12.2) H 03/19/17 10:46 INR 1.3 03/19/17 10:46 APTT 38 SECONDS (21-34) H 03/19/17 10:46 Attending/Attestation - Attestation I have personally seen and examined this patient.: Yes I have fully participated in the care of the patient.: Yes I have reviewed all pertinent clinical information, including history, physical exam and plan: Yes Notes (Text): Medical Attending: Patient was seen and examined by me, agree with the above note by the resident. The patient as before, is non verbal and non cooperative with the exam. ROS is not obtainable. Family member is present in the hospital. The patient has a history of dementia and has not been verbal in several years. The patient Na is decreasing. Will stop the IVF and continue to monitor the Na levels. Also continue with the abx at this time. Check pro -calcitnonin levels and also follow the blood cultures. thank you Edis Denton
[2017-03-21 07:29] LABS: ALBUMIN 2.6 g/dL (3.5-5.0)
[2017-03-21 07:32] LABS: ALB/GLOB RATIO 0.8 (1.0-2.1); AST/SGOT 36 U/L (17-59); BLOOD UREA NITROGEN 27 mg/dL (9-20); GFR AFRICAN-AMERICAN > 60; GFR NON-AFRICAN AMERICAN > 60
[2017-03-21 07:33] LABS: ALT/SGPT 37 U/L (21-72); CALCIUM 7.4 mg/dl (8.6-10.4); MAGNESIUM 2.6 mg/dL (1.6-2.3)
[2017-03-21 07:37] LABS: BASO % 0.3 % (0.0-2.0); EOS # 0.3 K/uL (0.0-0.7); EOS % 3.4 % (0.0-4.0); HEMOGLOBIN 10.7 g/dL (12.0-18.0); LYMPH # 0.7 K/uL (1.0-4.3); MEAN CELL VOLUME 77.7 fL (80.0-94.0); MEAN CORPUSCULAR HEMOGLOBIN 24.2 pg (27.0-31.0); MEAN CORPUSCULAR HGB CONC 31.1 g/dL (33.0-37.0); MEAN PLATELET VOLUME 11.6 fL (7.2-11.7); MONO # 0.4 K/uL (0.0-0.8); MONO % 4.6 % (0.0-10.0); NEUT # 6.9 K/uL (1.8-7.0); NEUT % 82.7 % (50.0-75.0); NRBC % 0.1 % (0.0-2.0); RBC 4.44 Mil/uL (4.40-5.90); RED CELL DISTRIBUTION WIDTH 18.6 % (11.5-14.5); WHITE BLOOD COUNT 8.3 K/uL (4.8-10.8)
[2017-03-21 08:02] LABS: PLATELET COUNT 120 K/uL (130-400)
[2017-03-21 08:30] LABS: ANISOCYTOSIS SLIGHT; EOSINOPHIL 2 % (0-4); HYPOCHROMIC SLIGHT; LYMPHOCYTE 6 % (20-40); MONOCYTE 5 % (0-10); NEUTROPHIL 87 % (50-75); PLATELET ESTIMATE SLIGHTLY DECREASED (NORMAL); POIKILOCYTOSIS SLIGHT; TOTAL CELLS COUNTED 100
[2017-03-21 08:31] LABS: LARGE PLATELETS PRESENT
[2017-03-21 14:13] LABS: ALBUMIN 2.6 g/dL (3.5-5.0)
[2017-03-21 14:16] LABS: ALB/GLOB RATIO 0.7 (1.0-2.1); ALT/SGPT 37 U/L (21-72); AST/SGOT 41 U/L (17-59); BLOOD UREA NITROGEN 25 mg/dL (9-20); GFR AFRICAN-AMERICAN > 60; GFR NON-AFRICAN AMERICAN > 60
[2017-03-21 14:17] LABS: CALCIUM 7.3 mg/dl (8.6-10.4)
[2017-03-22 02:41] LABS: GFR AFRICAN-AMERICAN > 60; GFR NON-AFRICAN AMERICAN > 60
[2017-03-22 02:42] LABS: BLOOD UREA NITROGEN 17 mg/dL (9-20); CALCIUM 7.7 mg/dl (8.6-10.4)
[2017-03-22] MEDS: Piperacill/Tazo 2.25gm in Dex 2.25 GM/50 ML BAG IVPB SCH ×4 (05:27→22:29)
[2017-03-22] MEDS: Vancomycin 500mg/D5W 100 ml 500 MG/100 ML BAG IVPB SCH ×2 (07:02→17:28)
[2017-03-22 07:36] LABS: BASO % 0.2 % (0.0-2.0); EOS # 0.3 K/uL (0.0-0.7); EOS % 4.1 % (0.0-4.0); HEMOGLOBIN 11.6 g/dL (12.0-18.0); LYMPH # 0.8 K/uL (1.0-4.3); LYMPH % 10.7 % (20.0-40.0); MEAN CELL VOLUME 76.2 fL (80.0-94.0); MEAN CORPUSCULAR HEMOGLOBIN 24.1 pg (27.0-31.0); MEAN CORPUSCULAR HGB CONC 31.7 g/dL (33.0-37.0); MEAN PLATELET VOLUME 11.2 fL (7.2-11.7); MONO # 0.5 K/uL (0.0-0.8); MONO % 6.3 % (0.0-10.0); NEUT # 6.2 K/uL (1.8-7.0); NEUT % 78.7 % (50.0-75.0); NRBC % 0.1 % (0.0-2.0); RBC 4.79 Mil/uL (4.40-5.90); RED CELL DISTRIBUTION WIDTH 18.5 % (11.5-14.5); WHITE BLOOD COUNT 7.9 K/uL (4.8-10.8)
[2017-03-22 07:59] LABS: ALBUMIN 2.7 g/dL (3.5-5.0)
[2017-03-22 08:02] LABS: ALB/GLOB RATIO 0.8 (1.0-2.1); AST/SGOT 38 U/L (17-59); GFR AFRICAN-AMERICAN > 60; GFR NON-AFRICAN AMERICAN > 60
[2017-03-22 08:03] LABS: ALT/SGPT 38 U/L (21-72); BLOOD UREA NITROGEN 15 mg/dL (9-20); CALCIUM 7.9 mg/dl (8.6-10.4); MAGNESIUM 2.5 mg/dL (1.6-2.3)
[2017-03-22] MEDS: Dextrose 5%/0.45% NS 1,000 ML IV SCH (11:09)
[2017-03-22] MEDS ORDERED: Potassium Chloride 20 mEq/15 ml LIQ UD PO ONE (12:42)
--- NOTE | 2017-03-22 13:16 | CP.PCM.PN ---
<Jeanie Gramajo - Last Filed: 03/22/17 18:08> Subjective - Date & Time of Evaluation Date of Evaluation: 03/22/17 Time of Evaluation: 07:40 - Subjective Subjective: Medicine Note (PGY 1) : Dr. Denton's note Patient was seen and examined at beside. Patient is non-verbal and remains somnolent. Unable to evaluate ROS. Patient is stable. Objective - Vital Signs/Intake and Output Vital Signs (last 24 hours): Temp Pulse Resp BP Pulse Ox 98.5 F 67 18 109/67 100 03/22/17 08:23 03/22/17 08:23 03/22/17 08:23 03/22/17 08:23 03/22/17 08:23 Intake and Output: 03/22/17 03/22/17 06:59 18:59 Intake Total 750 Output Total 1750 Balance -1000 - Medications Medications: Current Medications Famotidine (Pepcid) 20 mg IVP DAILY [facility] Last Admin: 03/22/17 11:13 Dose: 20 mg Heparin Sodium (Porcine) (Heparin) 5,000 units SC Q12 [facility] Last Admin: 03/22/17 11:15 Dose: 5,000 units Vancomycin HCl/Dextrose (Vancocin) 500 mg in 100 mls @ 67 mls/hr IVPB Q12H [facility] Stop: 03/24/17 17:31 Last Admin: 03/22/17 07:02 Dose: 67 mls/hr Piperacillin Sod/Tazobactam Sod (Zosyn 2.25 Gm Iv Premix) 2.25 gm in 50 mls @ 100 mls/hr IVPB Q6H [facility] Last Admin: 03/22/17 12:24 Dose: 100 mls/hr Dextrose/Sodium Chloride (Dextrose 5%/0.45% Ns 1000 Ml) 1,000 mls @ 50 mls/hr IV .Q20H [facility] Last Admin: 03/22/17 11:09 Dose: 50 mls/hr - Labs Labs: 03/22/17 07:24 03/22/17 07:24 PT 15.0 SECONDS (9.7-12.2) H 03/19/17 10:46 INR 1.3 03/19/17 10:46 APTT 38 SECONDS (21-34) H 03/19/17 10:46 - Constitutional Appears: Well, No Acute Distress - Head Exam Head Exam: ATRAUMATIC, NORMAL INSPECTION - ENT Exam ENT Exam: Mucous Membranes Moist, Normal Exam - Respiratory Exam Respiratory Exam: Clear to Ausculation Bilateral, NORMAL BREATHING PATTERN - Cardiovascular Exam Cardiovascular Exam: REGULAR RHYTHM, +S1, +S2 - GI/Abdominal Exam GI & Abdominal Exam: Soft, Normal Bowel Sounds - Extremities Exam Extremities Exam: Normal Inspection - Neurological Exam Neurological Exam: absent: Alert, Awake, Oriented x3 - Skin Skin Exam: Dry, Normal Color, Warm Assessment and Plan (1) Weakness Assessment & Plan: Improving Secondary to significant dehydration Started on 1/2NS @ 150mls/hr------> Adjusted to 200mls/hr (03/20/17): D/C due to significant decrease in Na+ level (176-154), Restarted 1/2 NS @/50mls/ hr (03/22/17) U/A : No growth Blood culture: No growth F/u calorie count Head CT: No intracranial mass, hemorrhage or evidence of acute infarct. Atrophy greater than expected for patient age. Mild ventricular dilatation most likely secondary to central volume loss. Cannot rule out chronic compensated hydrocephalus. Possible small right temporal arachnoid cyst. Bilateral coloboma/staphyloma incidentally noted. Chest -X ray: No active disease Abdomen/pelvis CT: No significant or acute findings to account for/ related to the clinical presentation. Limitations of the current examination: Absence of oral contrast and IV contrast. Patient related motion induced artifact Status: Acute (2) Hypernatremia Assessment & Plan: Resolving Possibly secondary to severe dehydration ABG (Sodium: 184); Chemistry (Sodium 176)----> 154(03/21/17)---> 156 (03/22/17) 1/2NS@ 150mls/hr---> adjusted to 200mls/hr (03/20/17)-----Discontinued due to significant decrease in Na+ levels (176-154); restarted fluids 1/2NS @ 50mls/hr (03/22/17) Goal: to drop by <10meq within 24 hours * Stop fluids if sodium level drops > 10 meq within 24 hours: stopped 03/21/17 * Restarted fluids 1/2NS @ 50mls/hr (03/22/17) * Monitor Na+ levels closely * Continue to follow repeat CMP Status: Acute (3) Hypokalemia Assessment & Plan: K+ 3.6----> 3.5----> 3.1---> 3.3 Repleted with KCL 20meq IV once Repleted with KCL 60 meq IV in total (03/21/17)---> 20 meq @ 10:11am and then 40meq @ 19:31 Repleted with KCL 40 meq oral soln (03/22/17) Monitor K+ level with repeat CMP Status: Acute (4) Leukocytosis Assessment & Plan: Resolving WBC: 22.4 on admission-----> 8.3 (03/21/17)---> 7.9(03/22/17) Neutrophils: 86.8 on admission ---> 82.7 (03/21/17)----> 78.7 (03/22/17) Lactate 1.8 on admission Continue Vanco 500mg IVPB q12H D5W Continue Zosyn 2.25mg IVPB Q6H D5W 1/2NS @150mls/hr---> Adjusted to 200mls/hr (03/20/17)----D/C (03/21/17)--- Restarted 1/2 NS @ 50mls/hr (03/22/17) UA: Negative Blood culture (03/19/17): No Growth Urine culture (03/19/17): No Growt Status: Acute (5) ELIDA (acute kidney injury) Assessment & Plan: Stable Possibly secondary to severe dehydration BUN/CR: 53/1.8 ----> 44/1.3----> 27/1.2----> 15/0.9 1/2NS@150mls/hr--- Adjusted to 200mls/hr (03/20/17)---> d/c (03/21/17)---> restarted 1/2 NS @ mls/hr Status: Acute (6) History of traumatic head injury Assessment & Plan: Unchanged Worsening neurological deficit since 2010 Non-verbal for the past two years Urinary and fecal incontinence Not oriented to place and michelet Status: Acute (7) Prophylactic measure Assessment & Plan: SCD Heparin 5000 units SC q12h Pepcid 20MG IV daily Swallow Evaluation and Treat * Recommendation: Pureed thin liquid, honey thick * Aspiration precautions Status: Acute <Edis Denton H - Last Filed: 03/23/17 07:19> Objective - Vital Signs/Intake and Output Vital Signs (last 24 hours): Temp Pulse Resp BP Pulse Ox 98.0 F 73 20 106/72 96 03/22/17 23:35 03/22/17 23:35 03/22/17 23:35 03/22/17 23:35 03/22/17 23:35 Intake and Output: 03/23/17 03/23/17 06:59 18:59 Output Total 1100 Balance -1100 - Medications Medications: Current Medications Famotidine (Pepcid) 20 mg IVP DAILY [facility] Last Admin: 03/22/17 11:13 Dose: 20 mg Heparin Sodium (Porcine) (Heparin) 5,000 units SC Q12 [facility] Last Admin: 03/22/17 22:29 Dose: 5,000 units Vancomycin HCl/Dextrose (Vancocin) 500 mg in 100 mls @ 67 mls/hr IVPB Q12H [facility] Stop: 03/24/17 17:31 Last Admin: 03/23/17 05:46 Dose: 67 mls/hr Piperacillin Sod/Tazobactam Sod (Zosyn 2.25 Gm Iv Premix) 2.25 gm in 50 mls @ 100 mls/hr IVPB Q6H [facility] Last Admin: 03/23/17 05:46 Dose: 100 mls/hr Dextrose/Sodium Chloride (Dextrose 5%/0.45% Ns 1000 Ml) 1,000 mls @ 50 mls/hr IV .Q20H [facility] Last Admin: 03/22/17 11:09 Dose: 50 mls/hr - Labs Labs: 03/22/17 07:24 03/22/17 20:08 PT 15.0 SECONDS (9.7-12.2) H 03/19/17 10:46 INR 1.3 03/19/17 10:46 APTT 38 SECONDS (21-34) H 03/19/17 10:46 Attending/Attestation - Attestation I have personally seen and examined this patient.: Yes I have fully participated in the care of the patient.: Yes I have reviewed all pertinent clinical information, including history, physical exam and plan: Yes Notes (Text): Medical Attending: Patient was seen and examined by me. Agree with the above note by the resident, the patient as before is non verbal, non responsive. He moans, sometimes unitelligable words. His WBC is decreasing and his Na is decreasing. My thoughts are because of his failure to thrive, inability to carefor self, and also the family member having difficulty taking care of patient - that he will need a PEG tube at some point. Then possibly LTACH or snf for the remainder of his life. When I spoke with the patient's she was under the impression she would be able to take care of him at home. We explained to her that very likley this is not going to be possible. In the mean time continue to work on decreasing the Na. Monitor blood cultures, hopefully DC abx soon. Edis Denton
[2017-03-22 20:29] LABS: ALBUMIN 2.9 g/dL (3.5-5.0)
[2017-03-22 20:31] LABS: GFR AFRICAN-AMERICAN > 60; GFR NON-AFRICAN AMERICAN > 60
[2017-03-22 20:32] LABS: ALB/GLOB RATIO 0.8 (1.0-2.1); ALT/SGPT 32 U/L (21-72); AST/SGOT 38 U/L (17-59); BLOOD UREA NITROGEN 12 mg/dL (9-20)
[2017-03-22 20:33] LABS: CALCIUM 7.9 mg/dl (8.6-10.4)
[2017-03-23] MEDS: Piperacill/Tazo 2.25gm in Dex 2.25 GM/50 ML BAG IVPB SCH ×4 (05:46→22:28)
[2017-03-23] MEDS: Vancomycin 500mg/D5W 100 ml 500 MG/100 ML BAG IVPB SCH ×2 (05:46→18:05)
[2017-03-23] MEDS: Dextrose 5%/0.45% NS 1,000 ML IV SCH ×3 (07:15→13:08)
[2017-03-23 08:48] LABS: BASO % 0.4 % (0.0-2.0); EOS # 0.3 K/uL (0.0-0.7); EOS % 3.6 % (0.0-4.0); HEMOGLOBIN 12.7 g/dL (12.0-18.0); LYMPH # 1.1 K/uL (1.0-4.3); LYMPH % 13.5 % (20.0-40.0); MEAN CELL VOLUME 77.1 fL (80.0-94.0); MEAN CORPUSCULAR HEMOGLOBIN 24.7 pg (27.0-31.0); MEAN PLATELET VOLUME 11.6 fL (7.2-11.7); MONO # 0.6 K/uL (0.0-0.8); MONO % 7.3 % (0.0-10.0); NEUT # 6.2 K/uL (1.8-7.0); NEUT % 75.2 % (50.0-75.0); NRBC % 0.2 % (0.0-2.0); RBC 5.14 Mil/uL (4.40-5.90); RED CELL DISTRIBUTION WIDTH 18.1 % (11.5-14.5); WHITE BLOOD COUNT 8.3 K/uL (4.8-10.8)
[2017-03-23 09:11] LABS: ALBUMIN 3.2 g/dL (3.5-5.0)
[2017-03-23 09:14] LABS: ALB/GLOB RATIO 0.9 (1.0-2.1); AST/SGOT 39 U/L (17-59); GFR AFRICAN-AMERICAN > 60; GFR NON-AFRICAN AMERICAN > 60
[2017-03-23 09:15] LABS: ALT/SGPT 32 U/L (21-72); BLOOD UREA NITROGEN 12 mg/dL (9-20); CALCIUM 8.7 mg/dl (8.6-10.4); MAGNESIUM 2.6 mg/dL (1.6-2.3)
--- NOTE | 2017-03-23 09:39 | CP.PCM.PN ---
<Janna Washington - Last Filed: 03/23/17 14:01> Subjective - Date & Time of Evaluation Date of Evaluation: 03/23/17 Time of Evaluation: 09:39 - Subjective Subjective: Medicine Progress Note- Dr. Denton's Service Patient was seen and examined at bedside. Patient is non-verbal and unable to respond to review of systems. Objective - Vital Signs/Intake and Output Vital Signs (last 24 hours): Temp Pulse Resp BP Pulse Ox 97.4 F L 73 20 126/76 100 03/23/17 08:27 03/23/17 08:27 03/23/17 08:27 03/23/17 08:27 03/23/17 08:27 Intake and Output: 03/23/17 03/23/17 06:59 18:59 Output Total 1100 Balance -1100 - Medications Medications: Current Medications Famotidine (Pepcid) 20 mg IVP DAILY [facility] Last Admin: 03/22/17 11:13 Dose: 20 mg Heparin Sodium (Porcine) (Heparin) 5,000 units SC Q12 [facility] Last Admin: 03/22/17 22:29 Dose: 5,000 units Vancomycin HCl/Dextrose (Vancocin) 500 mg in 100 mls @ 67 mls/hr IVPB Q12H [facility] Stop: 03/24/17 17:31 Last Admin: 03/23/17 05:46 Dose: 67 mls/hr Piperacillin Sod/Tazobactam Sod (Zosyn 2.25 Gm Iv Premix) 2.25 gm in 50 mls @ 100 mls/hr IVPB Q6H [facility] Last Admin: 03/23/17 05:46 Dose: 100 mls/hr Dextrose/Sodium Chloride (Dextrose 5%/0.45% Ns 1000 Ml) 1,000 mls @ 50 mls/hr IV .Q20H [facility] Last Admin: 03/23/17 07:15 Dose: Not Given - Labs Labs: 03/23/17 08:34 03/23/17 08:34 PT 15.0 SECONDS (9.7-12.2) H 03/19/17 10:46 INR 1.3 03/19/17 10:46 APTT 38 SECONDS (21-34) H 03/19/17 10:46 - Constitutional Appears: Agitated, Confused - Head Exam Head Exam: NORMAL INSPECTION, NORMOCEPHALIC - Eye Exam Eye Exam: Normal appearance - ENT Exam ENT Exam: Mucous Membranes Moist - Neck Exam Neck Exam: Normal Inspection - Respiratory Exam Respiratory Exam: Clear to Ausculation Bilateral, NORMAL BREATHING PATTERN. absent: Rhonchi, Wheezes - Cardiovascular Exam Cardiovascular Exam: +S1, +S2 - GI/Abdominal Exam GI & Abdominal Exam: Firm, Diminished Bowel Sounds - Extremities Exam Extremities Exam: absent: Pedal Edema, Tenderness - Neurological Exam Neurological Exam: Altered. absent: Alert, Awake, Oriented x3 - Psychiatric Exam Psychiatric exam: Agitated, Flat Affect. absent: Normal Affect, Normal Mood Assessment and Plan (1) Weakness Assessment & Plan: Improving Secondary to significant dehydration Started on 1/2NS @ 150mls/hr------> Adjusted to 200mls/hr (03/20/17): D/C due to significant decrease in Na+ level (176-154), Restarted 1/2 NS @/50mls/ hr (03/22/17) U/A : No growth Blood culture: No growth F/u calorie count Head CT: No intracranial mass, hemorrhage or evidence of acute infarct. Atrophy greater than expected for patient age. Mild ventricular dilatation most likely secondary to central volume loss. Cannot rule out chronic compensated hydrocephalus. Possible small right temporal arachnoid cyst. Bilateral coloboma/staphyloma incidentally noted. Chest -X ray: No active disease Abdomen/pelvis CT: No significant or acute findings to account for/ related to the clinical presentation. Limitations of the current examination: Absence of oral contrast and IV contrast. Patient related motion induced artifact Status: Acute (2) ELIDA (acute kidney injury) Assessment & Plan: Stable Possibly secondary to severe dehydration BUN/CR: 53/1.8 ----> 44/1.3----> 27/1.2----> 15/0.9--> 12/0.9 (03/23) 1/2NS@150mls/hr--- Adjusted to 200mls/hr (03/20/17)---> d/c (03/21/17)---> restarted 1/2 NS @ mls/hr Status: Acute (3) History of traumatic head injury Assessment & Plan: Unchanged Worsening neurological deficit since 2010 Non-verbal for the past two years Urinary and fecal incontinence Not oriented to place and michelet Status: Acute (4) Hypernatremia Assessment & Plan: Resolving Possibly secondary to severe dehydration ABG (Sodium: 184); Chemistry (Sodium 176)----> 154(03/21/17)---> 156 (03/22/17)-- > 153 (03/23) 1/2NS@ 150mls/hr---> adjusted to 200mls/hr (03/20/17)-----Discontinued due to significant decrease in Na+ levels (176-154); restarted fluids 1/2NS @ 50mls/hr (03/22/17) Goal: to drop by <10meq within 24 hours * Stop fluids if sodium level drops > 10 meq within 24 hours: stopped 03/21/17 * Restarted fluids 1/2NS @ 50mls/hr (03/22/17) * Monitor Na+ levels closely * Continue to follow repeat CMP Status: Acute (5) Hypokalemia Assessment & Plan: K+ 3.6----> 3.5----> 3.1---> 3.3--> 3.9 (03/23) Repleted with KCL 20meq IV once Repleted with KCL 60 meq IV in total (03/21/17)---> 20 meq @ 10:11am and then 40meq @ 19:31 Repleted with KCL 40 meq oral soln (03/22/17) Monitor K+ level with repeat CMP Status: Acute (6) Leucocytosis Assessment & Plan: Resolving WBC: 22.4 on admission-----> 8.3 (03/21/17)---> 7.9(03/22/17) --> 8.3 (03/23) Neutrophils: 86.8 on admission ---> 82.7 (03/21/17)----> 78.7 (03/22/17) Lactate 1.8 on admission Continue Vanco 500mg IVPB q12H D5W Continue Zosyn 2.25mg IVPB Q6H D5W 1/2NS @150mls/hr---> Adjusted to 200mls/hr (03/20/17)----D/C (03/21/17)--- Restarted 1/2 NS @ 50mls/hr (03/22/17) UA: Negative Blood culture (03/19/17): No Growth Urine culture (03/19/17): No Growth Status: Acute (7) Prophylactic measure Assessment & Plan: SCD Heparin 5000 units SC q12h Pepcid 20MG IV daily Swallow Evaluation and Treat * Recommendation: Pureed thin liquid, honey thick * Aspiration precautions Status: Acute <Edis Denton H - Last Filed: 03/23/17 14:24> Objective - Vital Signs/Intake and Output Vital Signs (last 24 hours): Temp Pulse Resp BP Pulse Ox 97.4 F L 73 20 126/76 100 03/23/17 08:27 03/23/17 08:27 03/23/17 08:27 03/23/17 08:27 03/23/17 08:27 Intake and Output: 03/23/17 03/23/17 06:59 18:59 Output Total 1100 Balance -1100 - Medications Medications: Current Medications Famotidine (Pepcid) 20 mg IVP DAILY [facility] Last Admin: 03/23/17 11:00 Dose: 20 mg Heparin Sodium (Porcine) (Heparin) 5,000 units SC Q12 [facility] Last Admin: 03/23/17 11:00 Dose: 5,000 units Vancomycin HCl/Dextrose (Vancocin) 500 mg in 100 mls @ 67 mls/hr IVPB Q12H [facility] Stop: 03/24/17 17:31 Last Admin: 03/23/17 05:46 Dose: 67 mls/hr Piperacillin Sod/Tazobactam Sod (Zosyn 2.25 Gm Iv Premix) 2.25 gm in 50 mls @ 100 mls/hr IVPB Q6H [facility] Last Admin: 03/23/17 11:06 Dose: 100 mls/hr Dextrose/Sodium Chloride (Dextrose 5%/0.45% Ns 1000 Ml) 1,000 mls @ 100 mls/hr IV .Q10H [facility] - Labs Labs: 03/23/17 08:34 03/23/17 08:34 PT 15.0 SECONDS (9.7-12.2) H 03/19/17 10:46 INR 1.3 03/19/17 10:46 APTT 38 SECONDS (21-34) H 03/19/17 10:46 Attending/Attestation - Attestation I have personally seen and examined this patient.: Yes I have fully participated in the care of the patient.: Yes I have reviewed all pertinent clinical information, including history, physical exam and plan: Yes Notes (Text): Medical attending: Patient was seen and examined by me, agrees the above note by medical biller. The patient as reported above and as he has been yesterday in the day before is awake however not responsive to any commands. He does murmur some unintelligible words. When he is moving all 4 extremities. His white blood cell count is decreasing, the cultures remain negative at this time, he still on the IV anti-biotics that we started when he was admitted. Very likely I'll stop the any biotics tomorrow unless there is another change. His sodium is 153 today, we restarted the half-normal saline. We'll keep monitoring his BMP just to make sure the sodium comes down slowly. As mentioned before because of the patient's failure to thrive, dementia, nonresponsiveness, and inability to take care of himself, we will try to talk to the patient's family member to see if he get a PEG tube. It seems likely that this patient will eventually need chcf placement or LTAC. Thank you very much, Edis Denton
[2017-03-23 18:37] LABS: BLOOD UREA NITROGEN 13 mg/dL (9-20); GFR AFRICAN-AMERICAN > 60; GFR NON-AFRICAN AMERICAN > 60
[2017-03-23 18:38] LABS: CALCIUM 8.6 mg/dl (8.6-10.4)
--- NOTE | 2017-03-24 00:24 | CP.PCM.PN ---
<AvilaAbrilashley Haley - Last Filed: 03/24/17 09:18> Subjective - Date & Time of Evaluation Date of Evaluation: 03/24/17 Time of Evaluation: 06:05 - Subjective Subjective: Medicine Progress Note (PGY1) - Dr. Denton's Service Patient was seen and examined at bedside. Patient is non-verbal and unable to respond to review of systems. Objective - Vital Signs/Intake and Output Vital Signs (last 24 hours): Temp Pulse Resp BP Pulse Ox 97.6 F 80 20 107/65 99 03/23/17 15:37 03/23/17 18:00 03/23/17 15:37 03/23/17 15:37 03/23/17 15:37 Intake and Output: 03/23/17 03/24/17 18:59 06:59 Intake Total 700 Output Total 400 350 Balance 300 -350 - Medications Medications: Current Medications Famotidine (Pepcid) 20 mg IVP DAILY [facility] Last Admin: 03/23/17 11:00 Dose: 20 mg Heparin Sodium (Porcine) (Heparin) 5,000 units SC Q12 TETE Last Admin: 03/23/17 22:27 Dose: 5,000 units Vancomycin HCl/Dextrose (Vancocin) 500 mg in 100 mls @ 67 mls/hr IVPB Q12H TETE Stop: 03/24/17 17:31 Last Admin: 03/23/17 18:05 Dose: 67 mls/hr Piperacillin Sod/Tazobactam Sod (Zosyn 2.25 Gm Iv Premix) 2.25 gm in 50 mls @ 100 mls/hr IVPB Q6H [facility] Last Admin: 03/23/17 22:28 Dose: 100 mls/hr Dextrose/Sodium Chloride (Dextrose 5%/0.45% Ns 1000 Ml) 1,000 mls @ 100 mls/hr IV .Q10H TETE Last Admin: 03/23/17 13:08 Dose: 100 mls/hr - Labs Labs: 03/23/17 08:34 03/23/17 18:22 PT 15.0 SECONDS (9.7-12.2) H 03/19/17 10:46 INR 1.3 03/19/17 10:46 APTT 38 SECONDS (21-34) H 03/19/17 10:46 - Constitutional Appears: Well, No Acute Distress - Head Exam Head Exam: ATRAUMATIC - ENT Exam ENT Exam: Mucous Membranes Moist - Respiratory Exam Respiratory Exam: NORMAL BREATHING PATTERN Additional comments: Limited exam - Cardiovascular Exam Cardiovascular Exam: REGULAR RHYTHM, +S1, +S2 - GI/Abdominal Exam GI & Abdominal Exam: Soft, Normal Bowel Sounds - Extremities Exam Extremities Exam: Normal Capillary Refill, Normal Inspection. absent: Pedal Edema - Psychiatric Exam Psychiatric exam: Agitated - Skin Skin Exam: Dry, Normal Color, Warm Assessment and Plan (1) Weakness Assessment & Plan: Improving Secondary to significant dehydration Started on 1/2NS @ 150mls/hr------> Adjusted to 200mls/hr (03/20/17): D/C due to significant decrease in Na+ level (176-154), Restarted 1/2 NS @/50mls/ hr (03/22/17) Na: 144 (03/24/17) U/A : No growth Blood culture: No growth F/u calorie count Head CT: No intracranial mass, hemorrhage or evidence of acute infarct. Atrophy greater than expected for patient age. Mild ventricular dilatation most likely secondary to central volume loss. Cannot rule out chronic compensated hydrocephalus. Possible small right temporal arachnoid cyst. Bilateral coloboma/staphyloma incidentally noted. Chest -X ray: No active disease Abdomen/pelvis CT: No significant or acute findings to account for/ related to the clinical presentation. Limitations of the current examination: Absence of oral contrast and IV contrast. Patient related motion induced artifact Status: Acute Status: Acute (2) Hypernatremia Assessment & Plan: Resolving Possibly secondary to severe dehydration ABG (Sodium: 184); Chemistry (Sodium 176)----> 154(03/21/17)---> 156 (03/22/17)-- > 153 (03/23) 1/2NS@ 150mls/hr---> adjusted to 200mls/hr (03/20/17)-----Discontinued due to significant decrease in Na+ levels (176-154); restarted fluids 1/2NS @ 50mls/hr (03/22/17) Goal: to drop by <10meq within 24 hours * Stop fluids if sodium level drops > 10 meq within 24 hours: stopped 03/21/17 * Restarted fluids 1/2NS @ 50mls/hr (03/22/17) * Na+ : 144 (03/24/17) * Continue to Monitor Na+ levels closely Status: Acute (3) Hypokalemia Assessment & Plan: K+ 3.6----> 3.5----> 3.1---> 3.3--> 3.9--->11/22/16 (03/24) Repleted with KCL 20meq IV once Repleted with KCL 60 meq IV in total (03/21/17)---> 20 meq @ 10:11am and then 40meq @ 19:31 Repleted with KCL 40 meq oral soln (03/22/17) Repleted with KCL 40 meq oral soln (03/24/17) Monitor K+ level with repeat CMP Status: Acute (4) Leukocytosis Assessment & Plan: Resolving WBC: 22.4 on admission-----> 8.3 (03/21/17)---> 7.9(03/22/17) --> 8.3---> (03/24) Neutrophils: 86.8 on admission ---> 82.7 (03/21/17)----> 78.7 (03/22/17)--->75.2() Lactate 1.8 on admission Continue Vanco 500mg IVPB q12H D5W Continue Zosyn 2.25mg IVPB Q6H D5W 1/2NS @150mls/hr---> Adjusted to 200mls/hr (03/20/17)----D/C (03/21/17)--- Restarted 1/2 NS @ 50mls/hr (03/22/17) UA: Negative Blood culture (03/19/17): No Growth Urine culture (03/19/17): No Growth Status: Acute (5) ELIDA (acute kidney injury) Assessment & Plan: Stable Possibly secondary to severe dehydration BUN/CR: 53/1.8 ----> 44/1.3----> 27/1.2----> 15/0.9--> 12/0.9 (03/23) --> 10/0.7( 03/24) 1/2NS@150mls/hr--- Adjusted to 200mls/hr (03/20/17)---> d/c (03/21/17)---> restarted 1/2 NS @ mls/hr Status: Acute (6) History of traumatic head injury Assessment & Plan: Unchanged Worsening neurological deficit since 2010 Non-verbal for the past two years Urinary and fecal incontinence Not oriented to place and michelet Status: Acute (7) Prophylactic measure Assessment & Plan: SCD Heparin 5000 units SC q12h Pepcid 20MG IV daily Swallow Evaluation and Treat * Recommendation: Pureed thin liquid, honey thick * Aspiration precautions Status: Acute <Edis Denton H - Last Filed: 03/24/17 10:03> Objective - Vital Signs/Intake and Output Vital Signs (last 24 hours): Temp Pulse Resp BP Pulse Ox 97 F L 73 20 128/84 96 03/24/17 07:00 03/24/17 07:00 03/24/17 07:00 03/24/17 07:00 03/24/17 07:00 Intake and Output: 03/24/17 03/24/17 06:59 18:59 Output Total 750 Balance -750 - Medications Medications: Current Medications Famotidine (Pepcid) 20 mg IVP DAILY [facility] Last Admin: 03/24/17 09:41 Dose: 20 mg Heparin Sodium (Porcine) (Heparin) 5,000 units SC Q12 [facility] Last Admin: 03/24/17 09:41 Dose: 5,000 units Dextrose/Sodium Chloride (Dextrose 5%/0.45% Ns 1000 Ml) 1,000 mls @ 50 mls/hr IV .Q20H [facility] - Labs Labs: 03/23/17 08:34 03/24/17 07:26 PT 15.0 SECONDS (9.7-12.2) H 03/19/17 10:46 INR 1.3 03/19/17 10:46 APTT 38 SECONDS (21-34) H 03/19/17 10:46 Attending/Attestation - Attestation I have personally seen and examined this patient.: Yes I have fully participated in the care of the patient.: Yes I have reviewed all pertinent clinical information, including history, physical exam and plan: Yes Notes (Text): Medical Attending: Patient was seen and examined by me. Agree with the above note by the resident The Na is now 144, so will decrease IVF rate to 50 cc / hr. He has been afebrile, WBC stable, microbiology negative, and procalcitonin has been low twice now. So will stop abx and monitor. His is a patient on 3rd floor, I will discuss with her the idea of a PEG tube if he is a candidate. thank you Edis Denton
[2017-03-24] MEDS: Vancomycin 500mg/D5W 100 ml 500 MG/100 ML BAG IVPB SCH (06:20)
[2017-03-24] MEDS: Piperacill/Tazo 2.25gm in Dex 2.25 GM/50 ML BAG IVPB SCH (06:20)
[2017-03-24 08:32] LABS: ALBUMIN 2.9 g/dL (3.5-5.0)
[2017-03-24 08:35] LABS: AST/SGOT 40 U/L (17-59); GFR AFRICAN-AMERICAN > 60; GFR NON-AFRICAN AMERICAN > 60
[2017-03-24 08:36] LABS: ALB/GLOB RATIO 0.8 (1.0-2.1); ALT/SGPT 35 U/L (21-72); BLOOD UREA NITROGEN 10 mg/dL (9-20); CALCIUM 8.1 mg/dl (8.6-10.4); MAGNESIUM 2.2 mg/dL (1.6-2.3)
[2017-03-24] MEDS ORDERED: Potassium Chloride 20 mEq/15 ml LIQ UD PO ONE (09:21)
[2017-03-24] MEDS: Dextrose 5%/0.45% NS 1,000 ML IV SCH ×2 (09:42→14:32)
[2017-03-24 11:18] LABS: BASO % 0.4 % (0.0-2.0); EOS # 0.3 K/uL (0.0-0.7); EOS % 3.9 % (0.0-4.0); HEMOGLOBIN 12.8 g/dL (12.0-18.0); LYMPH % 13.8 % (20.0-40.0); MEAN CELL VOLUME 76.4 fL (80.0-94.0); MEAN CORPUSCULAR HEMOGLOBIN 24.5 pg (27.0-31.0); MEAN CORPUSCULAR HGB CONC 32.1 g/dL (33.0-37.0); MONO # 0.7 K/uL (0.0-0.8); MONO % 8.7 % (0.0-10.0); NEUT # 5.5 K/uL (1.8-7.0); NEUT % 73.2 % (50.0-75.0); NRBC % 0.1 % (0.0-2.0); RBC 5.23 Mil/uL (4.40-5.90); RED CELL DISTRIBUTION WIDTH 17.8 % (11.5-14.5); WHITE BLOOD COUNT 7.5 K/uL (4.8-10.8)
--- NOTE | 2017-03-25 00:06 | CP.PCM.PN ---
<Jeanie Gramajo E - Last Filed: 03/25/17 05:41> Subjective - Date & Time of Evaluation Date of Evaluation: 03/25/17 Time of Evaluation: 01:20 - Subjective Subjective: Medicine Note (PGY 1): Dr. Denton's Service Patient was seen and examined at bedside. Patient is non-verbal, therefore, unable to evaluate ROS. Patient is on 1:1. Unchanged clinically. Objective - Vital Signs/Intake and Output Vital Signs (last 24 hours): Temp Pulse Resp BP Pulse Ox 96 F L 85 20 111/63 96 03/24/17 15:37 03/24/17 15:37 03/24/17 15:37 03/24/17 15:37 03/24/17 15:37 Intake and Output: 03/24/17 03/25/17 18:59 06:59 Intake Total 840 Output Total 400 Balance 440 - Medications Medications: Current Medications Acetaminophen (Tylenol 325mg Tab) 650 mg PO Q6 PRN PRN Reason: Pain, Mild (1-3) Last Admin: 03/24/17 19:05 Dose: 650 mg Famotidine (Pepcid) 20 mg IVP DAILY [facility] Last Admin: 03/24/17 09:41 Dose: 20 mg Heparin Sodium (Porcine) (Heparin) 5,000 units SC Q12 [facility] Last Admin: 03/24/17 22:17 Dose: 5,000 units Dextrose/Sodium Chloride (Dextrose 5%/0.45% Ns 1000 Ml) 1,000 mls @ 50 mls/hr IV .Q20H TETE Last Admin: 03/24/17 14:32 Dose: 50 mls/hr - Labs Labs: 03/24/17 11:09 03/24/17 07:26 PT 15.0 SECONDS (9.7-12.2) H 03/19/17 10:46 INR 1.3 03/19/17 10:46 APTT 38 SECONDS (21-34) H 03/19/17 10:46 - Constitutional Appears: Agitated - Head Exam Head Exam: ATRAUMATIC - ENT Exam ENT Exam: Mucous Membranes Moist, Normal Exam - Respiratory Exam Respiratory Exam: Clear to Ausculation Bilateral, NORMAL BREATHING PATTERN - Cardiovascular Exam Cardiovascular Exam: REGULAR RHYTHM, +S1, +S2 - GI/Abdominal Exam GI & Abdominal Exam: Soft, Normal Bowel Sounds - Extremities Exam Extremities Exam: Normal Inspection. absent: Pedal Edema - Neurological Exam Neurological Exam: absent: Alert, Awake, Oriented x3 - Psychiatric Exam Psychiatric exam: Agitated - Skin Skin Exam: Dry, Normal Color, Warm Assessment and Plan (1) Weakness Assessment & Plan: Improving Secondary to significant dehydration Started on 1/2NS @ 150mls/hr------> Adjusted to 200mls/hr (03/20/17): D/C due to significant decrease in Na+ level (176-154), Restarted 1/2 NS @/50mls/ hr (03/22/17) Na: 144 (03/24/17): IVF @ 50MLS/HR U/A : No growth Blood culture: No growth Head CT: No intracranial mass, hemorrhage or evidence of acute infarct. Atrophy greater than expected for patient age. Mild ventricular dilatation most likely secondary to central volume loss. Cannot rule out chronic compensated hydrocephalus. Possible small right temporal arachnoid cyst. Bilateral coloboma/staphyloma incidentally noted. Chest -X ray: No active disease Abdomen/pelvis CT: No significant or acute findings to account for/ related to the clinical presentation. Limitations of the current examination: Absence of oral contrast and IV contrast. Patient related motion induced artifact Status: Acute (2) Hypernatremia Assessment & Plan: Resolving Possibly secondary to severe dehydration ABG (Sodium: 184); Chemistry (Sodium 176)----> 154(03/21/17)---> 156 (03/22/17)-- > 153 (03/23) 1/2NS@ 150mls/hr---> adjusted to 200mls/hr (03/20/17)-----Discontinued due to significant decrease in Na+ levels (176-154); restarted fluids 1/2NS @ 50mls/hr (03/22/17) Goal: to drop by <10meq within 24 hours * Stop fluids if sodium level drops > 10 meq within 24 hours: stopped 03/21/17 * Restarted fluids 1/2NS @ 50mls/hr (03/22/17) * Na+ : 144 (03/24/17) * Continue to Monitor Na+ levels closely Status: Acute (3) Hypokalemia Assessment & Plan: Resolving K+ 3.6----> 3.5----> 3.1---> 3.3--> 3.9--->11/22/16 (03/24) Repleted with KCL 20meq IV once Repleted with KCL 60 meq IV in total (03/21/17)---> 20 meq @ 10:11am and then 40meq @ 19:31 Repleted with KCL 40 meq oral soln (03/22/17) Repleted with KCL 40 meq oral soln (03/24/17) Monitor K+ level with repeat CMP Status: Acute (4) Leukocytosis Assessment & Plan: Resolving Afebrile WBC: 22.4 on admission-----> 8.3 (03/21/17)---> 7.9(03/22/17) --> 8.3---> (03/24) Neutrophils: 86.8 on admission ---> 82.7 (03/21/17)----> 78.7 (03/22/17)--->75.2() Lactate 1.8 on admission Procalcitonin: 0.05, 0.10 UA: Negative to date Blood culture (03/19/17): No Growth to date Urine culture (03/19/17): No Growth to date 1/2NS @150mls/hr---> Adjusted to 200mls/hr (03/20/17)----D/C (03/21/17)--- Restarted 1/2 NS @ 50mls/hr (03/22/17) Continue Vanco 500mg IVPB q12H D5W: D/C Continue Zosyn 2.25mg IVPB Q6H D5W: D/C Status: Acute (5) ELIDA (acute kidney injury) Assessment & Plan: Stable Possibly secondary to severe dehydration BUN/CR: 53/1.8 ----> 44/1.3----> 27/1.2----> 15/0.9--> 12/0.9 (03/23) --> 10/0.7( 03/24) 1/2NS@150mls/hr--- Adjusted to 200mls/hr (03/20/17)---> d/c (03/21/17)---> restarted 1/2 NS @ mls/hr Status: Acute (6) History of traumatic head injury Assessment & Plan: Unchanged Worsening neurological deficit since 2010 Non-verbal for the past two years Urinary and fecal incontinence Not oriented to place and time Will consider PEG-TUBE for appropriate nutritional intake * Patient's who is admitted to the hospital at this time has agreed for possible PEG tube placement Status: Acute (7) Prophylactic measure Assessment & Plan: SCD Heparin 5000 units SC q12h Pepcid 20MG IV daily Swallow Evaluation and Treat * Recommendation: Pureed thin liquid, honey thick * Aspiration precautions Status: Acute <Edis Denton H - Last Filed: 03/25/17 09:46> Objective - Vital Signs/Intake and Output Vital Signs (last 24 hours): Temp Pulse Resp BP Pulse Ox 96 F L 85 20 111/63 96 03/24/17 15:37 03/24/17 15:37 03/24/17 15:37 03/24/17 15:37 03/24/17 15:37 - Medications Medications: Current Medications Acetaminophen (Tylenol 325mg Tab) 650 mg PO Q6 PRN PRN Reason: Pain, Mild (1-3) Last Admin: 03/25/17 09:29 Dose: 650 mg Famotidine (Pepcid) 20 mg IVP DAILY [facility] Last Admin: 03/25/17 09:37 Dose: 20 mg Heparin Sodium (Porcine) (Heparin) 5,000 units SC Q12 [facility] Last Admin: 03/25/17 09:30 Dose: 5,000 units Dextrose/Sodium Chloride (Dextrose 5%/0.45% Ns 1000 Ml) 1,000 mls @ 50 mls/hr IV .Q20H [facility] Last Admin: 03/25/17 09:34 Dose: 50 mls/hr - Labs Labs: 03/25/17 07:08 03/25/17 07:08 PT 15.0 SECONDS (9.7-12.2) H 03/19/17 10:46 INR 1.3 03/19/17 10:46 APTT 38 SECONDS (21-34) H 03/19/17 10:46 Attending/Attestation - Attestation I have personally seen and examined this patient.: Yes I have fully participated in the care of the patient.: Yes I have reviewed all pertinent clinical information, including history, physical exam and plan: Yes Notes (Text): 03/25/17 09:42 Medical Attending: Patient was seen and examined by me. Agree with the above note by the resident. When I saw him today he was awake, mumbling non recognizable speech and incoherent, he did NOT respond to any commands and did NOT make eye contact with me or recognize my presence in the room. His Na is better, and WBC remains stable. Afebrile. Overnight was placed on 1 to 1 due to agitation. Will add low dose ativan IV today. I spoke with the patient's (who is also hospitalized) yesterday and after our discussion she wanted a PEG tube. She then wants to take care of him back at home. thank you Edis Denton
[2017-03-25 07:18] LABS: BASO % 0.1 % (0.0-2.0); EOS # 0.2 K/uL (0.0-0.7); EOS % 3.4 % (0.0-4.0); HEMOGLOBIN 12.2 g/dL (12.0-18.0); LYMPH # 1.1 K/uL (1.0-4.3); LYMPH % 16.5 % (20.0-40.0); MEAN CELL VOLUME 75.8 fL (80.0-94.0); MEAN CORPUSCULAR HEMOGLOBIN 24.6 pg (27.0-31.0); MEAN CORPUSCULAR HGB CONC 32.5 g/dL (33.0-37.0); MEAN PLATELET VOLUME 10.4 fL (7.2-11.7); MONO # 0.6 K/uL (0.0-0.8); MONO % 9.8 % (0.0-10.0); NEUT # 4.5 K/uL (1.8-7.0); NEUT % 70.2 % (50.0-75.0); NRBC % 0.1 % (0.0-2.0); RBC 4.96 Mil/uL (4.40-5.90); RED CELL DISTRIBUTION WIDTH 18.2 % (11.5-14.5); WHITE BLOOD COUNT 6.4 K/uL (4.8-10.8)
[2017-03-25 07:35] LABS: ALBUMIN 2.8 g/dL (3.5-5.0)
[2017-03-25 07:38] LABS: ALB/GLOB RATIO 0.8 (1.0-2.1); ALT/SGPT 40 U/L (21-72); AST/SGOT 38 U/L (17-59); GFR AFRICAN-AMERICAN > 60; GFR NON-AFRICAN AMERICAN > 60
[2017-03-25 07:39] LABS: BLOOD UREA NITROGEN 8 mg/dL (9-20); CALCIUM 8.2 mg/dl (8.6-10.4); MAGNESIUM 2.1 mg/dL (1.6-2.3)
[2017-03-25] MEDS: Dextrose 5%/0.45% NS 1,000 ML IV SCH (09:34)
--- NOTE | 2017-03-25 09:53 | CP.PCM.CON ---
<Michael Graham - Last Filed: 03/25/17 13:10> History of Present Illness - History of Present Illness History of Present Illness: PGY5 GI Fellow Consult Note Patient is a 61yo male with PMHx significant for TBI who presented to the ED for generalized weakness and failure to thrive. The patient is unable to provide any history given his clinical condition, thus history obtained from prior documentation and discussion with primary service. The patient lives at home with his who states that over the past several weeks the patient's health has progressively deteriorated. Per her, the patient was able to feed himself, ambulate without issue at home but has been nonverbal and incontinent of urine/feces for over 2 years. She states he has become so weak that he is unable to perform the limited ADLs that he had previously handled and has had minimal intake in the weeks leading up to admission. On arrival, lab work revealed significant hemoconcentration and a sodium of 172; all of which has resolved with adequate hydration. Speech therapy has evaluated the patient and recommends alternative means to nutrition as the patient is unable/unwilling to get adequate caloric intake daily. PMHx: See HPI PSHx: Unable to determine given clinical condition FHx: Unable to determine given clinical condition Social: Former smoker; no EtOH or illicit drug use Endo: No documented exams Past Patient History - Past Medical History & Family History Past Medical History?: Yes - Past Social History Smoking Status: Former Smoker - CARDIAC Hx Hypertension: Yes - PULMONARY Hx Respiratory Disorders: No - NEUROLOGICAL Hx Neurological Disorder: Yes - HEENT Hx HEENT Problems: No - RENAL Hx Chronic Kidney Disease: No - ENDOCRINE/METABOLIC Hx Endocrine Disorders: No - HEMATOLOGICAL/ONCOLOGICAL Hx Blood Disorders: No - INTEGUMENTARY Hx Dermatological Problems: No - MUSCULOSKELETAL/RHEUMATOLOGICAL Hx Falls: Yes - GASTROINTESTINAL Hx Constipation: Yes - GENITOURINARY/GYNECOLOGICAL Hx Incontinence: Yes - PSYCHIATRIC Hx Substance Use: No - SURGICAL HISTORY Hx Herniorrhaphy: Yes - ANESTHESIA Hx Anesthesia: Yes Hx Anesthesia Reactions: No Hx Malignant Hyperthermia: No Meds Allergies/Adverse Reactions: Allergies Allergy/AdvReac Type Severity Reaction Status Date / Time No Known Allergies Allergy Verified 03/19/17 08:51 - Medications Medications: Current Medications Acetaminophen (Tylenol 325mg Tab) 650 mg PO Q6 PRN PRN Reason: Pain, Mild (1-3) Last Admin: 03/25/17 09:29 Dose: 650 mg Famotidine (Pepcid) 20 mg IVP DAILY [facility] Last Admin: 03/25/17 09:37 Dose: 20 mg Heparin Sodium (Porcine) (Heparin) 5,000 units SC Q12 [facility] Last Admin: 03/25/17 09:30 Dose: 5,000 units Dextrose/Sodium Chloride (Dextrose 5%/0.45% Ns 1000 Ml) 1,000 mls @ 50 mls/hr IV .Q20H [facility] Last Admin: 03/25/17 09:34 Dose: 50 mls/hr Physical Exam - Constitutional Appears: Non-toxic, Agitated, Confused, Cachectic - Eye Exam Eye Exam: PERRL - ENT Exam ENT Exam: Mucous Membranes Moist - Respiratory Exam Respiratory Exam: Clear to Auscultation Bilateral. absent: Rales, Rhonchi, Wheezes - Cardiovascular Exam Cardiovascular Exam: Tachycardia, RRR, +S1, +S2 - GI/Abdominal Exam GI & Abdominal Exam: Normal Bowel Sounds, Soft. absent: Distended, Firm, Guarding, Organomegaly, Rigid, Tenderness - Extremities Exam Extremities exam: Positive for: normal inspection. Negative for: pedal edema - Neurological Exam Neurological exam: Altered - Psychiatric Exam Psychiatric exam: Agitated, Anxious - Skin Skin Exam: Dry, Warm Results - Vital Signs Recent Vital Signs: Last Vital Signs Temp 96 F L 03/24/17 15:37 Pulse 85 03/24/17 15:37 Resp 20 03/24/17 15:37 BP 111/63 03/24/17 15:37 Pulse Ox 96 03/24/17 15:37 - Labs Result Diagrams: 03/25/17 07:08 03/25/17 07:08 Labs: Laboratory Results - last 24 hr 03/24/17 03/24/17 03/24/17 11:09 11:29 16:16 WBC 7.5 RBC 5.23 Hgb 12.8 Hct 39.9 MCV 76.4 L MCH 24.5 L MCHC 32.1 L RDW 17.8 H Plt Count 109 L MPV 12.0 H Neut % (Auto) 73.2 Lymph % (Auto) 13.8 L [place] % (Auto) 8.7 Eos % (Auto) 3.9 Baso % (Auto) 0.4 Neut # 5.5 Lymph # 1.0 [place] # 0.7 Eos # 0.3 Baso # 0.0 Sodium Potassium Chloride Carbon Dioxide Anion Gap BUN Creatinine Est GFR ( Amer) Est GFR (Non-Af Amer) POC Glucose (mg/dL) 107 100 Random Glucose Calcium Phosphorus Magnesium Total Bilirubin AST ALT Alkaline Phosphatase Total Protein Albumin Globulin Albumin/Globulin Ratio 03/24/17 03/25/17 03/25/17 21:44 06:35 07:08 WBC 6.4 RBC 4.96 Hgb 12.2 Hct 37.6 MCV 75.8 L MCH 24.6 L MCHC 32.5 L RDW 18.2 H Plt Count 105 L MPV 10.4 Neut % (Auto) 70.2 Lymph % (Auto) 16.5 L [place] % (Auto) 9.8 Eos % (Auto) 3.4 Baso % (Auto) 0.1 Neut # 4.5 Lymph # 1.1 [place] # 0.6 Eos # 0.2 Baso # 0.0 Sodium Potassium Chloride Carbon Dioxide Anion Gap BUN Creatinine Est GFR ( Amer) Est GFR (Non-Af Amer) POC Glucose (mg/dL) 98 98 Random Glucose Calcium Phosphorus Magnesium Total Bilirubin AST ALT Alkaline Phosphatase Total Protein Albumin Globulin Albumin/Globulin Ratio 03/25/17 07:08 WBC RBC Hgb Hct MCV MCH MCHC RDW Plt Count MPV Neut % (Auto) Lymph % (Auto) [place] % (Auto) Eos % (Auto) Baso % (Auto) Neut # Lymph # [place] # Eos # Baso # Sodium 140 Potassium 3.6 Chloride 106 Carbon Dioxide 25 Anion Gap 13 BUN 8 L Creatinine 0.7 L Est GFR ( Amer) > 60 Est GFR (Non-Af Amer) > 60 POC Glucose (mg/dL) Random Glucose 95 Calcium 8.2 L Phosphorus 2.5 Magnesium 2.1 Total Bilirubin 0.6 AST 38 ALT 40 Alkaline Phosphatase 93 Total Protein 6.2 L Albumin 2.8 L Globulin 3.4 Albumin/Globulin Ratio 0.8 L Assessment & Plan - Assessment and Plan (Free Text) Assessment: Patient is a 61yo male with PMHx significant for TBI who presented to the ED for generalized weakness and failure to thrive. -Failure to thrive -Severe protein-calorie malnutrition -Hypernatremia/Dehydration - resolving Plan: -Agree with recommendation for PEG tube placement -NPO past midnight with plans for PEG insertion tomorrow per endo schedule -Medical optimization prior to procedure -Will need consent from in order to proceed with procedure -Patient may benefit from alternative living arrangements given significant debility - SNF - Date & Time Date: 03/25/17 Time: 08:45 <Elvin Segura MD - Last Filed: 03/25/17 13:45> Meds - Medications Medications: Current Medications Acetaminophen (Tylenol 325mg Tab) 650 mg PO Q6 PRN PRN Reason: Pain, Mild (1-3) Last Admin: 03/25/17 09:29 Dose: 650 mg Famotidine (Pepcid) 20 mg IVP DAILY [facility] Last Admin: 03/25/17 09:37 Dose: 20 mg Heparin Sodium (Porcine) (Heparin) 5,000 units SC Q12 [facility] Last Admin: 03/25/17 09:30 Dose: 5,000 units Dextrose/Sodium Chloride (Dextrose 5%/0.45% Ns 1000 Ml) 1,000 mls @ 50 mls/hr IV .Q20H [facility] Last Admin: 03/25/17 09:34 Dose: 50 mls/hr Lorazepam (Ativan) 0.5 mg IVP Q6H PRN PRN Reason: Anxiety Results - Vital Signs Recent Vital Signs: Last Vital Signs Temp 98 F 03/25/17 07:00 Pulse 73 03/25/17 07:00 Resp 20 03/25/17 07:00 BP 100/64 03/25/17 07:00 Pulse Ox 100 03/25/17 07:00 - Labs Result Diagrams: 03/25/17 07:08 03/25/17 07:08 Labs: Laboratory Results - last 24 hr 03/24/17 03/24/17 03/25/17 16:16 21:44 06:35 WBC RBC Hgb Hct MCV MCH MCHC RDW Plt Count MPV Neut % (Auto) Lymph % (Auto) [place] % (Auto) Eos % (Auto) Baso % (Auto) Neut # Lymph # [place] # Eos # Baso # Sodium Potassium Chloride Carbon Dioxide Anion Gap BUN Creatinine Est GFR ( Amer) Est GFR (Non-Af Amer) POC Glucose (mg/dL) 100 98 98 Random Glucose Calcium Phosphorus Magnesium Total Bilirubin AST ALT Alkaline Phosphatase Total Protein Albumin Globulin Albumin/Globulin Ratio 03/25/17 03/25/17 03/25/17 07:08 07:08 11:25 WBC 6.4 RBC 4.96 Hgb 12.2 Hct 37.6 MCV 75.8 L MCH 24.6 L MCHC 32.5 L RDW 18.2 H Plt Count 105 L MPV 10.4 Neut % (Auto) 70.2 Lymph % (Auto) 16.5 L [place] % (Auto) 9.8 Eos % (Auto) 3.4 Baso % (Auto) 0.1 Neut # 4.5 Lymph # 1.1 [place] # 0.6 Eos # 0.2 Baso # 0.0 Sodium 140 Potassium 3.6 Chloride 106 Carbon Dioxide 25 Anion Gap 13 BUN 8 L Creatinine 0.7 L Est GFR ( Amer) > 60 Est GFR (Non-Af Amer) > 60 POC Glucose (mg/dL) 101 Random Glucose 95 Calcium 8.2 L Phosphorus 2.5 Magnesium 2.1 Total Bilirubin 0.6 AST 38 ALT 40 Alkaline Phosphatase 93 Total Protein 6.2 L Albumin 2.8 L Globulin 3.4 Albumin/Globulin Ratio 0.8 L Attending/Attestation - Attestation I have personally seen and examined this patient.: Yes I have fully participated in the care of the patient.: Yes I have reviewed all pertinent clinical information: Yes Notes (Text): 03/25/17 13:44 Patient seen with Gi fellow on rounds this am. This is a 61yo male with PMHx significant for TBI who presented to the ED for generalized weakness and failure to thrive. GI consulted for PEG placement. Dehydration and hypernatremia has been treated. NPO past midnight for PEG placement in am. NPO and consent by in chart obtained by medical team.
--- NOTE | 2017-03-26 07:05 | CP.PCM.PN ---
<Jeanie Gramajo E - Last Filed: 03/26/17 17:40> Subjective - Date & Time of Evaluation Date of Evaluation: 03/26/17 Time of Evaluation: 07:20 - Subjective Subjective: Medicine Note (PGY 1) : Dr. Borjas's service Patient was seen and examined at bedside. Patient is non-verbal, therefore, unable to evaluate ROS. Patient continues to be on 1:1. Unchanged clinically. Patient's was at bedside, after a long discussion, she refused PEG tube placement recommendation after she consented yesterday. Patient's was given the contacts for two house call physicians in order for the patient to be evaluated/approved for home care as per director of casework services. Objective - Vital Signs/Intake and Output Vital Signs (last 24 hours): Temp Pulse Resp BP Pulse Ox 98 F 84 20 128/78 99 03/25/17 23:10 03/25/17 23:10 03/25/17 23:10 03/25/17 23:10 03/25/17 23:10 Intake and Output: 03/26/17 03/26/17 06:59 18:59 Intake Total 400 Output Total 700 Balance -300 - Medications Medications: Current Medications Acetaminophen (Tylenol 325mg Tab) 650 mg PO Q6 PRN PRN Reason: Pain, Mild (1-3) Last Admin: 03/25/17 09:29 Dose: 650 mg Famotidine (Pepcid) 20 mg IVP DAILY [facility] Last Admin: 03/25/17 09:37 Dose: 20 mg Heparin Sodium (Porcine) (Heparin) 5,000 units SC Q12 TETE Last Admin: 03/25/17 21:03 Dose: 5,000 units Dextrose/Sodium Chloride (Dextrose 5%/0.45% Ns 1000 Ml) 1,000 mls @ 50 mls/hr IV .Q20H TETE Last Admin: 03/25/17 09:34 Dose: 50 mls/hr Lorazepam (Ativan) 0.5 mg IVP Q6H PRN PRN Reason: Anxiety Last Admin: 03/25/17 15:06 Dose: 0.5 mg - Labs Labs: 03/25/17 07:08 03/25/17 07:08 PT 15.0 SECONDS (9.7-12.2) H 03/19/17 10:46 INR 1.3 03/19/17 10:46 APTT 38 SECONDS (21-34) H 03/19/17 10:46 - Constitutional Appears: No Acute Distress - Head Exam Head Exam: ATRAUMATIC - Eye Exam Eye Exam: EOMI, Normal appearance - ENT Exam ENT Exam: Mucous Membranes Moist, Normal Exam - Respiratory Exam Respiratory Exam: Clear to Ausculation Bilateral, NORMAL BREATHING PATTERN - Cardiovascular Exam Cardiovascular Exam: REGULAR RHYTHM, +S1, +S2 - GI/Abdominal Exam GI & Abdominal Exam: Soft, Normal Bowel Sounds - Extremities Exam Extremities Exam: Normal Inspection - Neurological Exam Neurological Exam: Alert, Awake. absent: Oriented x3 - Psychiatric Exam Psychiatric exam: Agitated - Skin Skin Exam: Dry, Normal Color, Warm Assessment and Plan (1) Weakness Assessment & Plan: Improving, stable Secondary to significant dehydration Started on 1/2NS @ 150mls/hr------> Adjusted to 200mls/hr (03/20/17): D/C due to significant decrease in Na+ level (176-154), Restarted 1/2 NS @/50mls/ hr (03/22/17) Na: 144 (03/24/17): IVF @ 50MLS/HR 140 (03/25/17) 141 (03/26/17) U/A : No growth Blood culture: No growth Head CT: No intracranial mass, hemorrhage or evidence of acute infarct. Atrophy greater than expected for patient age. Mild ventricular dilatation most likely secondary to central volume loss. Cannot rule out chronic compensated hydrocephalus. Possible small right temporal arachnoid cyst. Bilateral coloboma/staphyloma incidentally noted. Chest -X ray: No active disease Abdomen/pelvis CT: No significant or acute findings to account for/ related to the clinical presentation. Limitations of the current examination: Absence of oral contrast and IV contrast. Patient related motion induced artifact GI consulted ( Dr. Duke)---> Help appreciated Recommendation for PEG tube due to significant decreased PO intake. Patient's was agreeable to PEG tube placement and consented yesterday (03/26/17) but she refuse the PEG tube placement today and would like to continue PO. Status: Acute (2) Hypernatremia Assessment & Plan: Resolved Possibly secondary to severe dehydration ABG (Sodium: 184); Chemistry (Sodium 176)----> 154(03/21/17)---> 156 (03/22/17)-- > 153 (03/23) Free water Deficit on admission 12.83 liters 1/2NS@ 150mls/hr---> adjusted to 200mls/hr (03/20/17)-----Discontinued due to significant decrease in Na+ levels (176-154); restarted fluids 1/2NS @ 50mls/hr (03/22/17) Goal: to drop by <10meq within 24 hours * Stop fluids if sodium level drops > 10 meq within 24 hours: stopped 03/21/17 * Restarted fluids 1/2NS @ 50mls/hr (03/22/17) * Na+ : 144 (03/24/17) 140 (03/25/17) 141 (03/26/17) * Continue to Monitor Na+ levels closely Status: Acute (3) Hypokalemia Assessment & Plan: Resolved Stable at 3.9 K+ 3.6----> 3.5----> 3.1---> 3.3--> 3.9--->11/22/16 (03/24) Repleted with KCL 20meq IV once Repleted with KCL 60 meq IV in total (03/21/17)---> 20 meq @ 10:11am and then 40meq @ 19:31 Repleted with KCL 40 meq oral soln (03/22/17) Repleted with KCL 40 meq oral soln (03/24/17) Status: Acute (4) Leukocytosis Assessment & Plan: Resolved, Stable at 8.3 Afebrile WBC: 22.4 on admission-----> 8.3 (03/21/17)---> 7.9(03/22/17) --> 8.3---> (03/24) Neutrophils: 86.8 on admission ---> 82.7 (03/21/17)----> 78.7 (03/22/17)--->75.2() Lactate 1.8 on admission Procalcitonin: 0.05, 0.10 UA: Negative to date Blood culture (03/19/17): No Growth to date Urine culture (03/19/17): No Growth to date 1/2NS @150mls/hr---> Adjusted to 200mls/hr (03/20/17)----D/C (03/21/17)--- Restarted 1/2 NS @ 50mls/hr (03/22/17) Continue Vanco 500mg IVPB q12H D5W: D/C Continue Zosyn 2.25mg IVPB Q6H D5W: D/C Status: Acute (5) ELIDA (acute kidney injury) Assessment & Plan: Resolved, Stable Possibly secondary to severe dehydration BUN/CR: 53/1.8 ----> 44/1.3----> 27/1.2----> 15/0.9--> 12/0.9 (03/23) --> 10/0.7( 03/24)----> 7/0.7 (03/26) 1/2NS@150mls/hr--- Adjusted to 200mls/hr (03/20/17)---> d/c (03/21/17)---> restarted 1/2 NS @ mls/hr (03/22/17) Status: Acute (6) History of traumatic head injury Assessment & Plan: Unchanged Worsening neurological deficit since 2010 Non-verbal for the past two years Urinary and fecal incontinence Not oriented to place and time Will consider PEG-TUBE for appropriate nutritional intake * Patient's who is admitted to the hospital at this time has agreed for possible PEG tube placement * Patient's was agreeable to PEG tube placement and consented for PEG tube placement yesterday but refused placement today and has decided to continue PO. Status: Acute Status: Acute (7) Prophylactic measure Assessment & Plan: SCD Heparin 5000 units SC q12h Pepcid 20MG IV daily Swallow Evaluation and Treat * Recommendation: Pureed thin liquid, honey thick * Aspiration precautions On 1:1 Status: Acute <Yahir Borjas - Last Filed: 03/27/17 17:52> Objective - Vital Signs/Intake and Output Vital Signs (last 24 hours): Temp Pulse Resp BP Pulse Ox 96 F L 94 H 20 153/76 H 95 03/27/17 15:17 03/27/17 15:17 03/27/17 15:17 03/27/17 15:17 03/27/17 15:17 Intake and Output: 03/27/17 03/27/17 06:59 18:59 Intake Total 1050 600 Output Total 1300 600 Balance -250 0 - Medications Medications: Current Medications Acetaminophen (Tylenol 325mg Tab) 650 mg PO Q6 PRN PRN Reason: Pain, Mild (1-3) Last Admin: 03/25/17 09:29 Dose: 650 mg Famotidine (Pepcid) 20 mg PO BID TETE Heparin Sodium (Porcine) (Heparin) 5,000 units SC Q12 TETE Last Admin: 03/27/17 09:29 Dose: 5,000 units Dextrose/Sodium Chloride (Dextrose 5%/0.45% Ns 1000 Ml) 1,000 mls @ 50 mls/hr IV .Q20H TETE Last Admin: 03/27/17 05:00 Dose: 50 mls/hr Lorazepam (Ativan) 0.5 mg IVP Q6H PRN PRN Reason: Anxiety Last Admin: 03/27/17 11:51 Dose: 0.5 mg Potassium Chloride (K-Dur 20 Meq Er Tab) 20 meq PO DAILY TETE - Labs Labs: 03/27/17 06:54 03/27/17 06:54 PT 12.0 SECONDS (9.7-12.2) 03/26/17 07:23 INR 1.1 03/26/17 07:23 APTT 38 SECONDS (21-34) H 03/19/17 10:46 Attending/Attestation - Attestation I have personally seen and examined this patient.: Yes I have fully participated in the care of the patient.: Yes I have reviewed all pertinent clinical information, including history, physical exam and plan: Yes Notes (Text): 03/27/17 17:51 Patient was seen and examined at bedside with the resident Patient's family refused PEG placement We will continue to feed the patient orally Discharge planning in progress. I discussed the plan of care with the resident and agree with the history and physical and assessment/plan documented.
[2017-03-26 07:48] LABS: INR 1.1
[2017-03-26 08:00] LABS: BASO % 0.1 % (0.0-2.0); EOS # 0.1 K/uL (0.0-0.7); EOS % 0.9 % (0.0-4.0); LYMPH # 0.9 K/uL (1.0-4.3); LYMPH % 10.3 % (20.0-40.0); MEAN CELL VOLUME 75.8 fL (80.0-94.0); MEAN CORPUSCULAR HEMOGLOBIN 24.4 pg (27.0-31.0); MEAN CORPUSCULAR HGB CONC 32.3 g/dL (33.0-37.0); MEAN PLATELET VOLUME 10.5 fL (7.2-11.7); MONO # 0.5 K/uL (0.0-0.8); MONO % 5.6 % (0.0-10.0); NEUT # 6.9 K/uL (1.8-7.0); NEUT % 83.1 % (50.0-75.0); NRBC % 0.1 % (0.0-2.0); RBC 5.31 Mil/uL (4.40-5.90); RED CELL DISTRIBUTION WIDTH 18.5 % (11.5-14.5); WHITE BLOOD COUNT 8.3 K/uL (4.8-10.8)
[2017-03-26] MEDS: Dextrose 5%/0.45% NS 1,000 ML IV SCH ×2 (08:04→21:55)
[2017-03-26 08:13] LABS: ALBUMIN 3.4 g/dL (3.5-5.0)
[2017-03-26 08:16] LABS: ALB/GLOB RATIO 0.9 (1.0-2.1); ALT/SGPT 50 U/L (21-72); AST/SGOT 45 U/L (17-59); BLOOD UREA NITROGEN 7 mg/dL (9-20); GFR AFRICAN-AMERICAN > 60; GFR NON-AFRICAN AMERICAN > 60
[2017-03-26 08:17] LABS: CALCIUM 8.7 mg/dl (8.6-10.4); MAGNESIUM 2.1 mg/dL (1.6-2.3)
--- NOTE | 2017-03-26 12:20 | CP.PCM.PN ---
Subjective - Date & Time of Evaluation Date of Evaluation: 03/26/17 Time of Evaluation: 09:00 - Subjective Subjective: Patient seen at bedside. Non verbal. Tolerating oral food. refused PEG placement for now after signing the consent yesterday. She wants him to get few days of food trails. Objective - Vital Signs/Intake and Output Vital Signs (last 24 hours): Temp Pulse Resp BP Pulse Ox 97.2 F L 70 20 115/73 100 03/26/17 09:13 03/26/17 09:13 03/26/17 09:13 03/26/17 09:13 03/26/17 09:13 Intake and Output: 03/26/17 03/26/17 06:59 18:59 Intake Total 400 Output Total 700 Balance -300 - Medications Medications: Current Medications Acetaminophen (Tylenol 325mg Tab) 650 mg PO Q6 PRN PRN Reason: Pain, Mild (1-3) Last Admin: 03/25/17 09:29 Dose: 650 mg Famotidine (Pepcid) 20 mg IVP DAILY TETE Last Admin: 03/25/17 09:37 Dose: 20 mg Heparin Sodium (Porcine) (Heparin) 5,000 units SC Q12 TETE Last Admin: 03/25/17 21:03 Dose: 5,000 units Dextrose/Sodium Chloride (Dextrose 5%/0.45% Ns 1000 Ml) 1,000 mls @ 50 mls/hr IV .Q20H TETE Last Admin: 03/26/17 08:04 Dose: 50 mls/hr Lorazepam (Ativan) 0.5 mg IVP Q6H PRN PRN Reason: Anxiety Last Admin: 03/25/17 15:06 Dose: 0.5 mg - Labs Labs: 03/26/17 07:23 03/26/17 07:23 PT 12.0 SECONDS (9.7-12.2) 03/26/17 07:23 INR 1.1 03/26/17 07:23 APTT 38 SECONDS (21-34) H 03/19/17 10:46 - Constitutional Appears: Well, Non-toxic, Cachectic - Head Exam Head Exam: ATRAUMATIC, NORMAL INSPECTION, NORMOCEPHALIC - Eye Exam Eye Exam: EOMI, Normal appearance, PERRL - ENT Exam ENT Exam: Mucous Membranes Moist, Normal Exam - Neck Exam Neck Exam: Full ROM, Normal Inspection. absent: Lymphadenopathy - Respiratory Exam Respiratory Exam: Clear to Ausculation Bilateral, NORMAL BREATHING PATTERN - Cardiovascular Exam Cardiovascular Exam: REGULAR RHYTHM, +S1, +S2. absent: Murmur - GI/Abdominal Exam GI & Abdominal Exam: Soft, Normal Bowel Sounds. absent: Tenderness - Neurological Exam Neurological Exam: Alert, Awake - Skin Skin Exam: Dry, Intact Assessment and Plan - Assessment and Plan (Free Text) Assessment: 61yo male with PMHx significant for TBI who presented to the ED for generalized weakness and failure to thrive and low intake. Dehydration and hypernatremia resolved with IVF. patient was scheduled for PEG placement today but refused after signing the consent yesterday. Will get calorie counts and sign off for now. Team to recall GI again if PEG needed. Thank you for letting us participate in the care of your patient
[2017-03-27] MEDS: Dextrose 5%/0.45% NS 1,000 ML IV SCH ×2 (05:00→17:55)
[2017-03-27 07:07] LABS: BASO % 0.2 % (0.0-2.0); EOS # 0.1 K/uL (0.0-0.7); EOS % 1.4 % (0.0-4.0); HEMOGLOBIN 11.7 g/dL (12.0-18.0); MEAN CELL VOLUME 75.8 fL (80.0-94.0); MEAN CORPUSCULAR HEMOGLOBIN 24.8 pg (27.0-31.0); MEAN CORPUSCULAR HGB CONC 32.7 g/dL (33.0-37.0); MEAN PLATELET VOLUME 10.6 fL (7.2-11.7); MONO # 0.5 K/uL (0.0-0.8); NEUT # 5.2 K/uL (1.8-7.0); NEUT % 76.4 % (50.0-75.0); RBC 4.7 Mil/uL (4.40-5.90); RED CELL DISTRIBUTION WIDTH 19.3 % (11.5-14.5); WHITE BLOOD COUNT 6.8 K/uL (4.8-10.8)
[2017-03-27 07:25] LABS: ALBUMIN 2.8 g/dL (3.5-5.0)
[2017-03-27 07:28] LABS: ALB/GLOB RATIO 0.8 (1.0-2.1); AST/SGOT 36 U/L (17-59); GFR AFRICAN-AMERICAN > 60; GFR NON-AFRICAN AMERICAN > 60
[2017-03-27 07:29] LABS: ALT/SGPT 38 U/L (21-72); BLOOD UREA NITROGEN 10 mg/dL (9-20); CALCIUM 8.3 mg/dl (8.6-10.4); MAGNESIUM 2.1 mg/dL (1.6-2.3)
[2017-03-27] MEDS ORDERED: Potassium Chloride 20 mEq/15 ml LIQ UD PO ONE ×2 (09:23→13:07)
--- NOTE | 2017-03-27 16:41 | CP.PCM.PN ---
<VioletAbril coleashley Haley - Last Filed: 03/27/17 17:07> Subjective - Date & Time of Evaluation Date of Evaluation: 03/27/17 Time of Evaluation: 07:40 - Subjective Subjective: Medicine Note (PGY 1): Dr. Borjas's note Patient was seen and examined at bedside. Patient is non-verbal, therefore, unable to evaluate ROS. Patient continues to be on 1:1. Unchanged clinically. Patient will be leaving for subacute rehabilitation upon placement approval. Objective - Vital Signs/Intake and Output Vital Signs (last 24 hours): Temp Pulse Resp BP Pulse Ox 96 F L 94 H 20 153/76 H 95 03/27/17 15:17 03/27/17 15:17 03/27/17 15:17 03/27/17 15:17 03/27/17 15:17 Intake and Output: 03/27/17 03/27/17 06:59 18:59 Intake Total 1050 Output Total 1300 Balance -250 - Medications Medications: Current Medications Acetaminophen (Tylenol 325mg Tab) 650 mg PO Q6 PRN PRN Reason: Pain, Mild (1-3) Last Admin: 03/25/17 09:29 Dose: 650 mg Famotidine (Pepcid) 20 mg PO BID [facility] Heparin Sodium (Porcine) (Heparin) 5,000 units SC Q12 TETE Last Admin: 03/27/17 09:29 Dose: 5,000 units Dextrose/Sodium Chloride (Dextrose 5%/0.45% Ns 1000 Ml) 1,000 mls @ 50 mls/hr IV .Q20H TETE Last Admin: 03/27/17 05:00 Dose: 50 mls/hr Lorazepam (Ativan) 0.5 mg IVP Q6H PRN PRN Reason: Anxiety Last Admin: 03/27/17 11:51 Dose: 0.5 mg Potassium Chloride (K-Dur 20 Meq Er Tab) 20 meq PO DAILY TETE - Labs Labs: 03/27/17 06:54 03/27/17 06:54 PT 12.0 SECONDS (9.7-12.2) 03/26/17 07:23 INR 1.1 03/26/17 07:23 APTT 38 SECONDS (21-34) H 03/19/17 10:46 - Constitutional Appears: No Acute Distress - Head Exam Head Exam: ATRAUMATIC - ENT Exam ENT Exam: Mucous Membranes Moist, Normal Exam - Respiratory Exam Respiratory Exam: Clear to Ausculation Bilateral, NORMAL BREATHING PATTERN - Cardiovascular Exam Cardiovascular Exam: REGULAR RHYTHM, +S1, +S2 - GI/Abdominal Exam GI & Abdominal Exam: Soft, Normal Bowel Sounds - Extremities Exam Extremities Exam: Normal Inspection - Neurological Exam Neurological Exam: absent: Alert, Awake, Oriented x3 - Psychiatric Exam Psychiatric exam: Agitated - Skin Skin Exam: Dry, Normal Color, Warm Assessment and Plan (1) Weakness Assessment & Plan: Improving, stable Secondary to significant dehydration Started on 1/2NS @ 150mls/hr------> Adjusted to 200mls/hr (03/20/17): D/C due to significant decrease in Na+ level (176-154), Restarted 09/11 NS @/50mls/ hr (03/22/17) Na: 144 (03/24/17): IVF @ 50MLS/HR 140 (03/25/17) 141 (03/26/17) U/A : No growth Blood culture: No growth Head CT: No intracranial mass, hemorrhage or evidence of acute infarct. Atrophy greater than expected for patient age. Mild ventricular dilatation most likely secondary to central volume loss. Cannot rule out chronic compensated hydrocephalus. Possible small right temporal arachnoid cyst. Bilateral coloboma/staphyloma incidentally noted. Chest -X ray: No active disease Abdomen/pelvis CT: No significant or acute findings to account for/ related to the clinical presentation. Limitations of the current examination: Absence of oral contrast and IV contrast. Patient related motion induced artifact GI consulted ( Dr. Duke)---> Help appreciated Recommendation for PEG tube due to significant decreased PO intake. Patient's was agreeable to PEG tube placement and consented yesterday (03/26/17) but she refuse the PEG tube placement today and would like to continue PO. Status: Acute (2) Hypernatremia Assessment & Plan: Resolved with Na+: 139 Possibly secondary to severe dehydration ABG (Sodium: 184); Chemistry (Sodium 176)----> 154(03/21/17)---> 156 (03/22/17)-- > 153 (03/23) Free water Deficit on admission 12.83 liters 1/2NS@ 150mls/hr---> adjusted to 200mls/hr (03/20/17)-----Discontinued due to significant decrease in Na+ levels (176-154); restarted fluids 1/2NS @ 50mls/hr (03/22/17) Goal: to drop by <10meq within 24 hours * Stop fluids if sodium level drops > 10 meq within 24 hours: stopped 03/21/17 * Restarted fluids 1/2NS @ 50mls/hr (03/22/17) * Na+ : 144 (03/24/17) 140 (03/25/17) 141 (03/26/17) Status: Acute (3) Hypokalemia Assessment & Plan: Resolved Stable at 3.9 K+ 3.6----> 3.5----> 3.1---> 3.3--> 3.9--->11/22/16 (03/24) Repleted with KCL 20meq IV once Repleted with KCL 60 meq IV in total (03/21/17)---> 20 meq @ 10:11am and then 40meq @ 19:31 Repleted with KCL 40 meq oral soln (03/22/17) Repleted with KCL 40 meq oral soln (03/24/17) Repleted with KCL 40meq oral soln (03/27/17) due to K+ level of 3.5 Status: Acute (4) Leukocytosis Assessment & Plan: Resolved, Stable at 6.8 (03/27/17) Afebrile WBC: 22.4 on admission-----> 8.3 (03/21/17)---> 7.9(03/22/17) --> 8.3---> (03/24) Neutrophils: 86.8 on admission ---> 82.7 (03/21/17)----> 78.7 (03/22/17)--->75.2() Lactate 1.8 on admission Procalcitonin: 0.05, 0.10 UA: Negative to date Blood culture (03/19/17): No Growth to date Urine culture (03/19/17): No Growth to date 1/2NS @150mls/hr---> Adjusted to 200mls/hr (03/20/17)----D/C (03/21/17)--- Restarted 1/2 NS @ 50mls/hr (03/22/17) Continue Vanco 500mg IVPB q12H D5W: D/C Continue Zosyn 2.25mg IVPB Q6H D5W: D/C Status: Acute (5) ELIDA (acute kidney injury) Assessment & Plan: Resolved, Stable Possibly secondary to severe dehydration BUN/CR: 53/1.8 ----> 44/1.3----> 27/1.2----> 15/0.9--> 12/0.9 (03/23) --> 10/0.7( 03/24)----> 7/0.7 (03/26) 1/2NS@150mls/hr--- Adjusted to 200mls/hr (03/20/17)---> d/c (03/21/17)---> restarted 1/2 NS @ mls/hr (03/22/17) Status: Acute (6) History of traumatic head injury Assessment & Plan: Unchanged clinically Worsening neurological deficit since 2010 Non-verbal for the past two years Urinary and fecal incontinence Not oriented to place and time Will consider PEG-TUBE for appropriate nutritional intake * Patient's who is admitted to the hospital at this time has agreed for possible PEG tube placement * Patient's was agreeable to PEG tube placement and consented for PEG tube placement yesterday but refused placement today and has decided to continue PO Status: Acute (7) Prophylactic measure Assessment & Plan: SCD Heparin 5000 units SC q12h Pepcid 20MG IV daily Swallow Evaluation and Treat * Recommendation: Pureed thin liquid, honey thick * Aspiration precautions On 1:1 Patient will be discharge to subacute rehabilitation upon placement approval. Status: Acute <Yahir Borjas - Last Filed: 03/28/17 13:07> Objective - Vital Signs/Intake and Output Vital Signs (last 24 hours): Temp Pulse Resp BP Pulse Ox 97.7 F 79 20 117/71 100 03/28/17 09:19 03/28/17 09:19 03/28/17 09:19 03/28/17 09:19 03/28/17 09:19 Intake and Output: 03/28/17 03/28/17 06:59 18:59 Intake Total 1680 Output Total 1400 Balance 280 - Medications Medications: Current Medications Acetaminophen (Tylenol 325mg Tab) 650 mg PO Q6 PRN PRN Reason: Pain, Mild (1-3) Last Admin: 03/25/17 09:29 Dose: 650 mg Famotidine (Pepcid) 20 mg PO BID [facility] Last Admin: 03/28/17 10:12 Dose: 20 mg Heparin Sodium (Porcine) (Heparin) 5,000 units SC Q12 TETE Last Admin: 03/28/17 10:12 Dose: 5,000 units Dextrose/Sodium Chloride (Dextrose 5%/0.45% Ns 1000 Ml) 1,000 mls @ 50 mls/hr IV .Q20H TETE Last Admin: 03/28/17 01:48 Dose: 50 mls/hr Lorazepam (Ativan) 0.5 mg IVP Q6H PRN PRN Reason: Anxiety Last Admin: 03/28/17 10:13 Dose: 0.5 mg - Labs Labs: 03/28/17 06:43 03/28/17 06:43 PT 12.0 SECONDS (9.7-12.2) 03/26/17 07:23 INR 1.1 03/26/17 07:23 APTT 38 SECONDS (21-34) H 03/19/17 10:46 Attending/Attestation - Attestation I have personally seen and examined this patient.: Yes I have fully participated in the care of the patient.: Yes I have reviewed all pertinent clinical information, including history, physical exam and plan: Yes Notes (Text): 03/28/17 13:05 Patient seen and examined at bedside He is clinically stable He is off 1: 1 observation now. Discharge planning in progress. Discussed with the family Discussed with the resident and I agree with assessment/plan documented by the resident
[2017-03-28] MEDS: Dextrose 5%/0.45% NS 1,000 ML IV SCH ×2 (01:48→14:14)
[2017-03-28 06:52] LABS: BASO % 0.5 % (0.0-2.0); EOS # 0.1 K/uL (0.0-0.7); EOS % 1.3 % (0.0-4.0); HEMOGLOBIN 12.3 g/dL (12.0-18.0); LYMPH % 14.5 % (20.0-40.0); MEAN CORPUSCULAR HEMOGLOBIN 25.2 pg (27.0-31.0); MEAN CORPUSCULAR HGB CONC 33.2 g/dL (33.0-37.0); MEAN PLATELET VOLUME 9.4 fL (7.2-11.7); MONO # 0.6 K/uL (0.0-0.8); MONO % 9.1 % (0.0-10.0); NEUT # 4.9 K/uL (1.8-7.0); NEUT % 74.6 % (50.0-75.0); NRBC % 0.1 % (0.0-2.0); RBC 4.87 Mil/uL (4.40-5.90); RED CELL DISTRIBUTION WIDTH 20.2 % (11.5-14.5); WHITE BLOOD COUNT 6.6 K/uL (4.8-10.8)
[2017-03-28 07:22] LABS: GFR AFRICAN-AMERICAN > 60; GFR NON-AFRICAN AMERICAN > 60
[2017-03-28 07:23] LABS: ALT/SGPT 47 U/L (21-72); AST/SGOT 42 U/L (17-59); BLOOD UREA NITROGEN 8 mg/dL (9-20); CALCIUM 8.2 mg/dl (8.6-10.4); MAGNESIUM 1.8 mg/dL (1.6-2.3)
[2017-03-28 07:44] LABS: ALB/GLOB RATIO 0.9 (1.0-2.1)
[2017-03-28] MEDS ORDERED: Potassium Chloride 20 mEq/15 ml LIQ UD PO ONE (09:26)
[2017-03-28] MEDS ORDERED: Potassium Chloride 20 mEq ER Tab PO SCH (10:00)
--- NOTE | 2017-03-28 14:48 | CP.PCM.PN ---
<Jeanie Gramajo E - Last Filed: 03/28/17 15:04> Subjective - Date & Time of Evaluation Date of Evaluation: 03/28/17 Time of Evaluation: 07:50 - Subjective Subjective: Medicine note ( PGY 1) : Dr. Borjas's service Patient was seen and examined at bedside. Patient is non-verbal, therefore, unable to evaluate ROS. Patient is no longer on 1:1 observation. Unchanged clinically. Patient will be leaving for subacute rehabilitation upon placement approval. Objective - Vital Signs/Intake and Output Vital Signs (last 24 hours): Temp Pulse Resp BP Pulse Ox 97.7 F 79 20 117/71 100 03/28/17 09:19 03/28/17 09:19 03/28/17 09:19 03/28/17 09:19 03/28/17 09:19 Intake and Output: 03/28/17 03/28/17 06:59 18:59 Intake Total 1680 Output Total 1400 Balance 280 - Medications Medications: Current Medications Acetaminophen (Tylenol 325mg Tab) 650 mg PO Q6 PRN PRN Reason: Pain, Mild (1-3) Last Admin: 03/25/17 09:29 Dose: 650 mg Famotidine (Pepcid) 20 mg PO BID [facility] Last Admin: 03/28/17 10:12 Dose: 20 mg Heparin Sodium (Porcine) (Heparin) 5,000 units SC Q12 [facility] Last Admin: 03/28/17 10:12 Dose: 5,000 units Dextrose/Sodium Chloride (Dextrose 5%/0.45% Ns 1000 Ml) 1,000 mls @ 50 mls/hr IV .Q20H [facility] Last Admin: 03/28/17 14:14 Dose: Not Given - Labs Labs: 03/28/17 06:43 03/28/17 06:43 PT 12.0 SECONDS (9.7-12.2) 03/26/17 07:23 INR 1.1 03/26/17 07:23 APTT 38 SECONDS (21-34) H 03/19/17 10:46 - Constitutional Appears: Non-toxic, No Acute Distress - Head Exam Head Exam: ATRAUMATIC, NORMAL INSPECTION - Eye Exam Eye Exam: EOMI, Normal appearance - ENT Exam ENT Exam: Mucous Membranes Moist, Normal Exam - Respiratory Exam Respiratory Exam: NORMAL BREATHING PATTERN - Cardiovascular Exam Cardiovascular Exam: REGULAR RHYTHM, +S2 - GI/Abdominal Exam GI & Abdominal Exam: Soft, Normal Bowel Sounds - Extremities Exam Extremities Exam: Normal Capillary Refill, Normal Inspection. absent: Pedal Edema - Neurological Exam Neurological Exam: Alert, Awake. absent: Oriented x3 - Psychiatric Exam Psychiatric exam: Normal Affect, Normal Mood - Skin Skin Exam: Dry, Normal Color, Warm Assessment and Plan (1) Weakness Assessment & Plan: Improving, stable Secondary to significant dehydration Started on 1/2NS @ 150mls/hr------> Adjusted to 200mls/hr (03/20/17): D/C due to significant decrease in Na+ level (176-154), Restarted / NS @/50mls/ hr (03/22/17) Na: 144 (03/24/17): IVF @ 50MLS/HR 140 (03/25/17) 141 (03/26/17) U/A : No growth Blood culture: No growth Head CT: No intracranial mass, hemorrhage or evidence of acute infarct. Atrophy greater than expected for patient age. Mild ventricular dilatation most likely secondary to central volume loss. Cannot rule out chronic compensated hydrocephalus. Possible small right temporal arachnoid cyst. Bilateral coloboma/staphyloma incidentally noted. Chest -X ray: No active disease Abdomen/pelvis CT: No significant or acute findings to account for/ related to the clinical presentation. Limitations of the current examination: Absence of oral contrast and IV contrast. Patient related motion induced artifact GI consulted ( Dr. Duke)---> Help appreciated Recommendation for PEG tube due to significant decreased PO intake. Patient's was agreeable to PEG tube placement and consented yesterday (03/26/17) but she refuse the PEG tube placement today and would like to continue PO. Status: Acute (2) Hypernatremia Assessment & Plan: Resolved with Na+: 136 Possibly secondary to severe dehydration ABG (Sodium: 184); Chemistry (Sodium 176)----> 154(03/21/17)---> 156 (03/22/17)-- > 153 (03/23) Free water Deficit on admission 12.83 liters 1/2NS@ 150mls/hr---> adjusted to 200mls/hr (03/20/17)-----Discontinued due to significant decrease in Na+ levels (176-154); restarted fluids 1/2NS @ 50mls/hr (03/22/17) Goal: to drop by <10meq within 24 hours * Stop fluids if sodium level drops > 10 meq within 24 hours: stopped 03/21/17 * Restarted fluids 1/2NS @ 50mls/hr (03/22/17) * Na+ : 144 (03/24/17) 140 (03/25/17) 141 (03/26/17) Status: Acute (3) Hypokalemia Assessment & Plan: Resolving K+ 3.6----> 3.5----> 3.1---> 3.3--> 3.9--->11/22/16 (03/24) Repleted with KCL 20meq IV once Repleted with KCL 60 meq IV in total (03/21/17)---> 20 meq @ 10:11am and then 40meq @ 19:31 Repleted with KCL 40 meq oral soln (03/22/17) Repleted with KCL 40 meq oral soln (03/24/17) Repleted with KCL 40meq oral soln (03/27/17) due to K+ level of 3.5 Repleted with KCL 40meq oral soln (03/28/17) due to K+ level of 3.5 Status: Acute (4) Leukocytosis Assessment & Plan: Resolved Stable at 6.6 (03/28/17) Afebrile WBC: 22.4 on admission-----> 8.3 (03/21/17)---> 7.9(03/22/17) --> 8.3---> (03/24) Neutrophils: 86.8 on admission ---> 82.7 (03/21/17)----> 78.7 (03/22/17)--->75.2() Lactate 1.8 on admission Procalcitonin: 0.05, 0.10 UA: Negative to date Blood culture (03/19/17): No Growth to date Urine culture (03/19/17): No Growth to date 1/2NS @150mls/hr---> Adjusted to 200mls/hr (03/20/17)----D/C (03/21/17)--- Restarted 1/2 NS @ 50mls/hr (03/22/17) Continue Vanco 500mg IVPB q12H D5W: D/C Continue Zosyn 2.25mg IVPB Q6H D5W: D/C Status: Acute (5) ELIDA (acute kidney injury) Assessment & Plan: Resolved, Stable Possibly secondary to severe dehydration BUN/CR: 53/1.8 ----> 44/1.3----> 27/1.2----> 15/0.9--> 12/0.9 (03/23) --> 10/0.7( 03/24)----> 7/0.7 (03/26) 1/2NS@150mls/hr--- Adjusted to 200mls/hr (03/20/17)---> d/c (03/21/17)---> restarted 1/2 NS @ mls/hr (03/22/17) Status: Acute (6) History of traumatic head injury Assessment & Plan: Unchanged clinically Worsening neurological deficit since 2010 Non-verbal for the past two years Urinary and fecal incontinence Not oriented to place and time Will consider PEG-TUBE for appropriate nutritional intake * Patient's who is admitted to the hospital at this time has agreed for possible PEG tube placement * Patient's was agreeable to PEG tube placement and consented for PEG tube placement yesterday but refused placement today and has decided to continue PO Status: Acute (7) Prophylactic measure Assessment & Plan: SCD Heparin 5000 units SC q12h Pepcid 20MG IV daily Swallow Evaluation and Treat * Recommendation: Pureed thin liquid, honey thick * Aspiration precautions Patient will be discharge to [facility] upon placement approval Status: Acute <Yahir Borjas - Last Filed: 03/29/17 18:18> Objective - Vital Signs/Intake and Output Vital Signs (last 24 hours): Temp Pulse Resp BP Pulse Ox 98.1 F 73 18 118/74 100 03/29/17 08:26 03/29/17 08:26 03/29/17 08:26 03/29/17 08:26 03/29/17 08:26 Intake and Output: 03/29/17 03/29/17 06:59 18:59 Intake Total 1040 600 Balance 1040 600 - Labs Labs: 03/29/17 08:23 03/29/17 08:23 PT 12.0 SECONDS (9.7-12.2) 03/26/17 07:23 INR 1.1 03/26/17 07:23 APTT 38 SECONDS (21-34) H 03/19/17 10:46 Attending/Attestation - Attestation I have personally seen and examined this patient.: Yes I have fully participated in the care of the patient.: Yes I have reviewed all pertinent clinical information, including history, physical exam and plan: Yes Notes (Text): 03/29/17 18:17 Patient was seen and examined at bedside with the resident Discussed with the family at bedside Continue current medical management Awaiting placement Discussed the plan of care with the resident and agree with the history and physical and assessment/plan documented by the resident.
--- NOTE | 2017-03-29 07:52 | CP.PCM.DIS ---
Provider - Provider Date of Admission: 03/19/17 11:28 Attending physician: Yahir Borjas MD Diagnosis - Discharge Diagnosis (1) Weakness Status: Acute (2) Hypernatremia Status: Acute (3) Hypokalemia Status: Acute (4) Leukocytosis Status: Acute (5) ELIDA (acute kidney injury) Status: Acute (6) History of traumatic head injury Status: Acute (7) Prophylactic measure Status: Acute Hospital Course - Lab Results Lab Results: Micro Results 03/19/17 13:00 Blood-Venous Blood Culture - Final NO GROWTH AFTER 5 DAYS 03/19/17 13:00 Blood-Venous Gram Stain - Final 03/19/17 13:30 Blood-Venous Blood Culture - Final NO GROWTH AFTER 5 DAYS 03/19/17 13:30 Blood-Venous Gram Stain - Final TEST NOT PERFORMED 03/19/17 Unknown Urine,Catheterized Urine Culture - Final No Growth (<1,000 CFU/ML) Most Recent Lab Values WBC 6.6 K/uL (4.8-10.8) 03/28/17 06:43 RBC 4.87 Mil/uL (4.40-5.90) 03/28/17 06:43 Hgb 12.3 g/dL (12.0-18.0) 03/28/17 06:43 Hct 37.0 % (35.0-51.0) 03/28/17 06:43 MCV 76.0 fL (80.0-94.0) L 03/28/17 06:43 MCH 25.2 pg (27.0-31.0) L 03/28/17 06:43 MCHC 33.2 g/dL (33.0-37.0) 03/28/17 06:43 RDW 20.2 % (11.5-14.5) H 03/28/17 06:43 Plt Count 149 K/uL (130-400) 03/28/17 06:43 MPV 9.4 fL (7.2-11.7) 03/28/17 06:43 Neut % (Auto) 74.6 % (50.0-75.0) 03/28/17 06:43 Lymph % (Auto) 14.5 % (20.0-40.0) L 03/28/17 06:43 [place] % (Auto) 9.1 % (0.0-10.0) 03/28/17 06:43 Eos % (Auto) 1.3 % (0.0-4.0) 03/28/17 06:43 Baso % (Auto) 0.5 % (0.0-2.0) 03/28/17 06:43 Neut # 4.9 K/uL (1.8-7.0) 03/28/17 06:43 Lymph # 1.0 K/uL (1.0-4.3) 03/28/17 06:43 [place] # 0.6 K/uL (0.0-0.8) 03/28/17 06:43 Eos # 0.1 K/uL (0.0-0.7) 03/28/17 06:43 Baso # 0.0 K/uL (0.0-0.2) 03/28/17 06:43 Neutrophils % (Manual) 87 % (50-75) H 03/21/17 07:04 Band Neutrophils % 5 % (0-2) H 03/20/17 17:59 Lymphocytes % (Manual) 6 % (20-40) L 03/21/17 07:04 Monocytes % (Manual) 5 % (0-10) 03/21/17 07:04 Eosinophils % (Manual) 2 % (0-4) 03/21/17 07:04 Platelet Estimate Slightly decreased (NORMAL) L 03/21/17 07:04 Large Platelets Present 03/21/17 07:04 Hypochromasia (manual) Slight 03/21/17 07:04 Poikilocytosis (manual Slight 03/21/17 07:04 Anisocytosis (manual) Slight 03/21/17 07:04 Microcytosis (manual) Slight 03/20/17 17:59 PT 12.0 SECONDS (9.7-12.2) 03/26/17 07:23 INR 1.1 03/26/17 07:23 APTT 38 SECONDS (21-34) H 03/19/17 10:46 pO2 26 mm/Hg (30-55) L 03/19/17 13:09 VBG pH 7.34 (7.32-7.43) 03/19/17 13:09 VBG pCO2 54 mmHg (40-60) 03/19/17 13:09 VBG HCO3 25.2 mmol/L 03/19/17 13:09 VBG Total CO2 30.8 mmol/L (22-28) H 03/19/17 13:09 VBG O2 Sat (Calc) 45.4 % (40-65) 03/19/17 13:09 VBG Base Excess 2.2 mmol/L (0.0-2.0) H 03/19/17 13:09 VBG Potassium 3.8 mmol/L (3.6-5.2) 03/19/17 13:09 Sodium 184.0 mmol/l (132-148) H* 03/19/17 13:09 Chloride 145.0 mmol/L (98-107) H 03/19/17 13:09 Glucose 110 mg/dl (75-110) 03/19/17 13:09 Lactate 1.9 mmol/L (0.7-2.1) 03/19/17 13:09 Crit Value Called To Dr.phem pike 03/19/17 13:09 Crit Value Called By lesly Gonzalez,seam rubbing machine operator 03/19/17 13:09 Crit Value Read Back Y 03/19/17 13:09 Blood Gas Notified Time 1320 03/19/17 13:09 Sodium 136 mmol/L (132-148) 03/28/17 06:43 Potassium 3.5 mmol/L (3.6-5.2) L 03/28/17 06:43 Chloride 100 mmol/L (98-107) 03/28/17 06:43 Carbon Dioxide 24 mmol/L (22-30) 03/28/17 06:43 Anion Gap 16 (10-20) 03/28/17 06:43 BUN 8 mg/dL (9-20) L 03/28/17 06:43 Creatinine 0.6 MG/DL (0.8-1.5) L 03/28/17 06:43 Est GFR ( Amer) > 60 03/28/17 06:43 Est GFR (Non-Af Amer) > 60 03/28/17 06:43 POC Glucose (mg/dL) 96 mg/dL (65-110) 03/29/17 06:20 Random Glucose 92 mg/dL (75-110) 03/28/17 06:43 Calcium 8.2 mg/dl (8.6-10.4) L 03/28/17 06:43 Phosphorus 3.0 mg/dL (2.5-4.5) 03/28/17 06:43 Magnesium 1.8 mg/dL (1.6-2.3) 03/28/17 06:43 Total Bilirubin 0.5 mg/dL (0.2-1.3) 03/28/17 06:43 AST 42 U/L (17-59) 03/28/17 06:43 ALT 47 U/L (21-72) 03/28/17 06:43 Alkaline Phosphatase 97 U/L (38-126) 03/28/17 06:43 Total Creatine Kinase 107 U/L (55-170) 03/19/17 10:46 CK-MB (Mass) 0.26 ng/mL (0.0-3.38) 03/19/17 10:46 Troponin I 0.0830 ng/mL (0.00-0.120) 03/19/17 10:46 Total Protein 6.5 g/dL (6.3-8.3) 03/28/17 06:43 Albumin 3.0 g/dL (3.5-5.0) L 03/28/17 06:43 Globulin 3.5 gm/dL (2.2-3.9) 03/28/17 06:43 Albumin/Globulin Ratio 0.9 (1.0-2.1) L 03/28/17 06:43 Procalcitonin 0.10 NG/ML (0.19-0.49) L 03/21/17 21:10 Venous Blood Potassium 3.8 mmol/L (3.6-5.2) 03/19/17 13:09 Urine Color Yellow (YELLOW) 03/19/17 11:45 Urine Clarity Hazy (Clear) 03/19/17 11:45 Urine pH 5.0 (5.0-8.0) 03/19/17 11:45 Ur Specific [place] 1.017 (1.003-1.030) 03/19/17 11:45 Urine Protein Negative mg/dL (NEGATIVE) 03/19/17 11:45 Urine Glucose (UA) Normal mg/dL (Normal) 03/19/17 11:45 Urine Ketones Negative mg/dL (NEGATIVE) 03/19/17 11:45 Urine Blood Negative (NEGATIVE) 03/19/17 11:45 Urine Nitrate Negative (NEGATIVE) 03/19/17 11:45 Urine Bilirubin Negative (NEGATIVE) 03/19/17 11:45 Urine Urobilinogen Normal mg/dL (0.2-1.0) 03/19/17 11:45 Ur Leukocyte Esterase Neg John/uL (Negative) 03/19/17 11:45 Urine WBC (Auto) 2 /hpf (0-5) 03/19/17 11:45 Urine RBC (Auto) 1 /hpf (0-3) 03/19/17 11:45 Ur Squamous Epith Cells < 1 /hpf (0-5) 03/19/17 11:45 Hyaline Casts 0-2 /lpf (0-2) 03/19/17 11:45 Discharge Exam - Head Exam Head Exam: ATRAUMATIC, NORMAL INSPECTION Discharge Plan - Follow Up Plan Condition: SERIOUS Disposition: HOME/ ROUTINE Instructions: Complete Blenderized Diet (DC), Leukocytosis (DC), Weakness (GEN) , Hypernatremia (DC) Additional Instructions: Please discharge patient to [facility]. Please resume all home medications as instructed by your prescriber Please follow-up with the recommended primary care physician for house call as instructed by the pillowcase cleaner and home care personnel in order to obtain home care service. [facility] up with the [facility] within a [facility], Please return to the hospital if symptoms resume Referrals: at [facility] [Outside]
[2017-03-29] MEDS ORDERED: Potassium Chloride 20 mEq/15 ml LIQ UD PO ONE (08:15)
[2017-03-29 08:27] VITALS: BP 118/74; PULSE 73; RESP 18; TEMP 98.1; O2SAT 100
[2017-03-29 08:32] LABS: BASO % 0.4 % (0.0-2.0); EOS # 0.1 K/uL (0.0-0.7); EOS % 1.2 % (0.0-4.0); HEMOGLOBIN 12.5 g/dL (12.0-18.0); LYMPH # 0.9 K/uL (1.0-4.3); LYMPH % 13.4 % (20.0-40.0); MEAN CELL VOLUME 75.9 fL (80.0-94.0); MEAN CORPUSCULAR HEMOGLOBIN 25.3 pg (27.0-31.0); MEAN CORPUSCULAR HGB CONC 33.3 g/dL (33.0-37.0); MEAN PLATELET VOLUME 9.5 fL (7.2-11.7); MONO # 0.6 K/uL (0.0-0.8); MONO % 8.2 % (0.0-10.0); NEUT # 5.2 K/uL (1.8-7.0); NEUT % 76.8 % (50.0-75.0); RBC 4.96 Mil/uL (4.40-5.90); RED CELL DISTRIBUTION WIDTH 19.9 % (11.5-14.5); WHITE BLOOD COUNT 6.7 K/uL (4.8-10.8)
[2017-03-29 08:44] LABS: ALBUMIN 3.2 g/dL (3.5-5.0)
[2017-03-29 08:47] LABS: ALB/GLOB RATIO 0.8 (1.0-2.1); AST/SGOT 48 U/L (17-59); BLOOD UREA NITROGEN 7 mg/dL (9-20); GFR AFRICAN-AMERICAN > 60; GFR NON-AFRICAN AMERICAN > 60
[2017-03-29 08:48] LABS: ALT/SGPT 49 U/L (21-72); CALCIUM 8.7 mg/dl (8.6-10.4)
--- NOTE | 2017-03-29 16:17 | CP.PCM.DIS ---
<AvilaAbrilashley E - Last Filed: 03/29/17 18:35> Provider - Provider Date of Admission: 03/19/17 11:28 Attending physician: Yahir Borjas MD Time Spent in preparation of Discharge (in minutes): 45 Diagnosis - Discharge Diagnosis (1) Weakness Status: Acute (2) Hypernatremia Status: Acute (3) Hypokalemia Status: Acute (4) Leukocytosis Status: Acute (5) ELIDA (acute kidney injury) Status: Acute (6) History of traumatic head injury Status: Acute (7) Prophylactic measure Status: Acute Hospital Course - Lab Results Lab Results: Micro Results 03/19/17 13:00 Blood-Venous Blood Culture - Final NO GROWTH AFTER 5 DAYS 03/19/17 13:00 Blood-Venous Gram Stain - Final 03/19/17 13:30 Blood-Venous Blood Culture - Final NO GROWTH AFTER 5 DAYS 03/19/17 13:30 Blood-Venous Gram Stain - Final TEST NOT PERFORMED 03/19/17 Unknown Urine,Catheterized Urine Culture - Final No Growth (<1,000 CFU/ML) Most Recent Lab Values WBC 6.7 K/uL (4.8-10.8) 03/29/17 08:23 RBC 4.96 Mil/uL (4.40-5.90) 03/29/17 08:23 Hgb 12.5 g/dL (12.0-18.0) 03/29/17 08:23 Hct 37.6 % (35.0-51.0) 03/29/17 08:23 MCV 75.9 fL (80.0-94.0) L 03/29/17 08:23 MCH 25.3 pg (27.0-31.0) L 03/29/17 08:23 MCHC 33.3 g/dL (33.0-37.0) 03/29/17 08:23 RDW 19.9 % (11.5-14.5) H 03/29/17 08:23 Plt Count 180 K/uL (130-400) 03/29/17 08:23 MPV 9.5 fL (7.2-11.7) 03/29/17 08:23 Neut % (Auto) 76.8 % (50.0-75.0) H 03/29/17 08:23 Lymph % (Auto) 13.4 % (20.0-40.0) L 03/29/17 08:23 [place] % (Auto) 8.2 % (0.0-10.0) 03/29/17 08:23 Eos % (Auto) 1.2 % (0.0-4.0) 03/29/17 08:23 Baso % (Auto) 0.4 % (0.0-2.0) 03/29/17 08:23 Neut # 5.2 K/uL (1.8-7.0) 03/29/17 08:23 Lymph # 0.9 K/uL (1.0-4.3) L 03/29/17 08:23 [place] # 0.6 K/uL (0.0-0.8) 03/29/17 08:23 Eos # 0.1 K/uL (0.0-0.7) 03/29/17 08:23 Baso # 0.0 K/uL (0.0-0.2) 03/29/17 08:23 Neutrophils % (Manual) 87 % (50-75) H 03/21/17 07:04 Band Neutrophils % 5 % (0-2) H 03/20/17 17:59 Lymphocytes % (Manual) 6 % (20-40) L 03/21/17 07:04 Monocytes % (Manual) 5 % (0-10) 03/21/17 07:04 Eosinophils % (Manual) 2 % (0-4) 03/21/17 07:04 Platelet Estimate Slightly decreased (NORMAL) L 03/21/17 07:04 Large Platelets Present 03/21/17 07:04 Hypochromasia (manual) Slight 03/21/17 07:04 Poikilocytosis (manual Slight 03/21/17 07:04 Anisocytosis (manual) Slight 03/21/17 07:04 Microcytosis (manual) Slight 03/20/17 17:59 PT 12.0 SECONDS (9.7-12.2) 03/26/17 07:23 INR 1.1 03/26/17 07:23 APTT 38 SECONDS (21-34) H 03/19/17 10:46 pO2 26 mm/Hg (30-55) L 03/19/17 13:09 VBG pH 7.34 (7.32-7.43) 03/19/17 13:09 VBG pCO2 54 mmHg (40-60) 03/19/17 13:09 VBG HCO3 25.2 mmol/L 03/19/17 13:09 VBG Total CO2 30.8 mmol/L (22-28) H 03/19/17 13:09 VBG O2 Sat (Calc) 45.4 % (40-65) 03/19/17 13:09 VBG Base Excess 2.2 mmol/L (0.0-2.0) H 03/19/17 13:09 VBG Potassium 3.8 mmol/L (3.6-5.2) 03/19/17 13:09 Sodium 184.0 mmol/l (132-148) H* 03/19/17 13:09 Chloride 145.0 mmol/L (98-107) H 03/19/17 13:09 Glucose 110 mg/dl (75-110) 03/19/17 13:09 Lactate 1.9 mmol/L (0.7-2.1) 03/19/17 13:09 Crit Value Called To Dr.phem pike 03/19/17 13:09 Crit Value Called By lesly Gonzalez,carlos 03/19/17 13:09 Crit Value Read Back Y 03/19/17 13:09 Blood Gas Notified Time 1320 03/19/17 13:09 Sodium 137 mmol/L (132-148) 03/29/17 08:23 Potassium 3.9 mmol/L (3.6-5.2) 03/29/17 08:23 Chloride 98 mmol/L (98-107) 03/29/17 08:23 Carbon Dioxide 29 mmol/L (22-30) 03/29/17 08:23 Anion Gap 14 (10-20) 03/29/17 08:23 BUN 7 mg/dL (9-20) L 03/29/17 08:23 Creatinine 0.7 MG/DL (0.8-1.5) L 03/29/17 08:23 Est GFR ( Amer) > 60 03/29/17 08:23 Est GFR (Non-Af Amer) > 60 03/29/17 08:23 POC Glucose (mg/dL) 129 mg/dL (65-110) H 03/29/17 11:23 Random Glucose 90 mg/dL (75-110) 03/29/17 08:23 Calcium 8.7 mg/dl (8.6-10.4) 03/29/17 08:23 Phosphorus 3.3 mg/dL (2.5-4.5) 03/29/17 08:23 Magnesium 2.0 mg/dL (1.6-2.3) 03/29/17 08:23 Total Bilirubin 0.7 mg/dL (0.2-1.3) 03/29/17 08:23 AST 48 U/L (17-59) 03/29/17 08:23 ALT 49 U/L (21-72) 03/29/17 08:23 Alkaline Phosphatase 108 U/L (38-126) 03/29/17 08:23 Total Creatine Kinase 107 U/L (55-170) 03/19/17 10:46 CK-MB (Mass) 0.26 ng/mL (0.0-3.38) 03/19/17 10:46 Troponin I 0.0830 ng/mL (0.00-0.120) 03/19/17 10:46 Total Protein 7.1 g/dL (6.3-8.3) 03/29/17 08:23 Albumin 3.2 g/dL (3.5-5.0) L 03/29/17 08:23 Globulin 3.9 gm/dL (2.2-3.9) 03/29/17 08:23 Albumin/Globulin Ratio 0.8 (1.0-2.1) L 03/29/17 08:23 Procalcitonin 0.10 NG/ML (0.19-0.49) L 03/21/17 21:10 Venous Blood Potassium 3.8 mmol/L (3.6-5.2) 03/19/17 13:09 Urine Color Yellow (YELLOW) 03/19/17 11:45 Urine Clarity Hazy (Clear) 03/19/17 11:45 Urine pH 5.0 (5.0-8.0) 03/19/17 11:45 Ur Specific [place] 1.017 (1.003-1.030) 03/19/17 11:45 Urine Protein Negative mg/dL (NEGATIVE) 03/19/17 11:45 Urine Glucose (UA) Normal mg/dL (Normal) 03/19/17 11:45 Urine Ketones Negative mg/dL (NEGATIVE) 03/19/17 11:45 Urine Blood Negative (NEGATIVE) 03/19/17 11:45 Urine Nitrate Negative (NEGATIVE) 03/19/17 11:45 Urine Bilirubin Negative (NEGATIVE) 03/19/17 11:45 Urine Urobilinogen Normal mg/dL (0.2-1.0) 03/19/17 11:45 Ur Leukocyte Esterase Neg John/uL (Negative) 03/19/17 11:45 Urine WBC (Auto) 2 /hpf (0-5) 03/19/17 11:45 Urine RBC (Auto) 1 /hpf (0-3) 03/19/17 11:45 Ur Squamous Epith Cells < 1 /hpf (0-5) 03/19/17 11:45 Hyaline Casts 0-2 /lpf (0-2) 03/19/17 11:45 - Hospital Course Hospital Course: As per admission: HPI: 61 year old male with a Hx of head injury in 2006 who presents to the ER because as per he has become increasingly weaker over the past month. states over the years the patient has declined in cognitive function; she states 2 years ago he became nonverbal and unable to control urine or bowel movements, however, reports that he has always been physically strong until now. reports patient has been losing an increased amount of weight and has become more confused; she brought in in today because he did not eat or drink yesterday. denies patient has had fever, chills, or vomiting. Patient is non-verbal and was not at bedside during the encounter therefore HPI as per ED was used. Hospital Course: Patient was admitted with the consideration of hypernatremia (Na+ 176), severe dehydration and malnutrition. Patient was medically managed with appropriate IV fluids with strict parameter to not decrease Na+ level more than 10-12meq within 24 hours. GI consult was placed to Dr. Duke's group, for consideration of PEG tube placement due to severe malnutrition. Initially, patient's was agreeable to PEG tube placement but later denied PEG tube placement at this time and would like to continue to feed the patient by mouth. Speech therapy was consulted for a swallow evaluation, who then recommended that patient should be placed on pureed/ honey thick diet. Patient continued to be medically managed on IV fluids and Na+ level started to normalize. Patient started to improve clinically with Na+ level, leuckocytosis and renal function normalizing and started to become more awake and alert but continues to mumble non- recognizable speech. Lastly, patient was cleared by his care team and was discharge to [facility] subacute rehabilitation. Pertinent Study Results: Abdomen/pelvis CT (03/19/17): No significant or acute findings to account for/ related to the clinical presentation. Limitations of the current examination: Absence of oral contrast and IV contrast. Patient related motion induced artifact. Chest X-ray (03/19/17): No active disease Head CT (03/19/17): No intracranial mass, hemorrhage or evidence of acute infarct. Atrophy greater than expected for patient age. Mild ventricular dilatation most likely secondary to central volume loss. Cannot rule out chronic compensated hydrocephalus. Possible small right temporal arachnoid cyst. Bilateral coloboma/staphyloma incidentally noted Shoulder X-ray (03/19/17): Normal radiographs of the right shoulder. This is a brief summary of events. For a complete course, refer to the medical record. Discharge Exam - Head Exam Head Exam: ATRAUMATIC, NORMAL INSPECTION - Eye Exam Eye Exam: EOMI, Normal appearance - ENT Exam ENT Exam: Mucous Membranes Moist, Normal Exam - Respiratory Exam Respiratory Exam: NORMAL BREATHING PATTERN - Cardiovascular Exam Cardiovascular Exam: REGULAR RHYTHM, +S1, +S2 - GI/Abdominal Exam GI & Abdominal Exam: Normal Bowel Sounds, Soft - Extremities Exam Extremities exam: normal capillary refill, normal inspection - Neurological Exam Neurological exam: Alert - Psychiatric Exam Psychiatric exam: Agitated - Skin Skin Exam: Dry, Normal Color, Warm Discharge Plan - Follow Up Plan Condition: SERIOUS Disposition: TRANSF TO SNF Instructions: Complete Blenderized Diet (DC), Leukocytosis (DC), Weakness (GEN) , Hypernatremia (DC) Additional Instructions: Please discharge patient to [facility]. Please resume all home medications as instructed by your prescriber Please continue with pureed/ honey thick diet Please follow-up with the recommended primary care physician for house call as instructed by the case advocate and home care personnel in order to obtain home care service. Please follow up with the [facility] within a week, Please return to the hospital if symptoms resume Referrals: [facility] [Outside] <Yahir Borjas Last Filed: 03/30/17 17:33> Provider - Provider Date of Admission: 03/19/17 11:28 Attending physician: Yahir Borjas MD Hospital Course - Lab Results Lab Results: Micro Results 03/19/17 13:00 Blood-Venous Blood Culture - Final NO GROWTH AFTER 5 DAYS 03/19/17 13:00 Blood-Venous Gram Stain - Final 03/19/17 13:30 Blood-Venous Blood Culture - Final NO GROWTH AFTER 5 DAYS 03/19/17 13:30 Blood-Venous Gram Stain - Final TEST NOT PERFORMED 03/19/17 Unknown Urine,Catheterized Urine Culture - Final No Growth (<1,000 CFU/ML) Most Recent Lab Values WBC 6.7 K/uL (4.8-10.8) 03/29/17 08:23 RBC 4.96 Mil/uL (4.40-5.90) 03/29/17 08:23 Hgb 12.5 g/dL (12.0-18.0) 03/29/17 08:23 Hct 37.6 % (35.0-51.0) 03/29/17 08:23 MCV 75.9 fL (80.0-94.0) L 03/29/17 08:23 MCH 25.3 pg (27.0-31.0) L 03/29/17 08:23 MCHC 33.3 g/dL (33.0-37.0) 03/29/17 08:23 RDW 19.9 % (11.5-14.5) H 03/29/17 08:23 Plt Count 180 K/uL (130-400) 03/29/17 08:23 MPV 9.5 fL (7.2-11.7) 03/29/17 08:23 Neut % (Auto) 76.8 % (50.0-75.0) H 03/29/17 08:23 Lymph % (Auto) 13.4 % (20.0-40.0) L 03/29/17 08:23 Atlantic % (Auto) 8.2 % (0.0-10.0) 03/29/17 08:23 Eos % (Auto) 1.2 % (0.0-4.0) 03/29/17 08:23 Baso % (Auto) 0.4 % (0.0-2.0) 03/29/17 08:23 Neut # 5.2 K/uL (1.8-7.0) 03/29/17 08:23 Lymph # 0.9 K/uL (1.0-4.3) L 03/29/17 08:23 [place] # 0.6 K/uL (0.0-0.8) 03/29/17 08:23 Eos # 0.1 K/uL (0.0-0.7) 03/29/17 08:23 Baso # 0.0 K/uL (0.0-0.2) 03/29/17 08:23 Neutrophils % (Manual) 87 % (50-75) H 03/21/17 07:04 Band Neutrophils % 5 % (0-2) H 03/20/17 17:59 Lymphocytes % (Manual) 6 % (20-40) L 03/21/17 07:04 Monocytes % (Manual) 5 % (0-10) 03/21/17 07:04 Eosinophils % (Manual) 2 % (0-4) 03/21/17 07:04 Platelet Estimate Slightly decreased (NORMAL) L 03/21/17 07:04 Large Platelets Present 03/21/17 07:04 Hypochromasia (manual) Slight 03/21/17 07:04 Poikilocytosis (manual Slight 03/21/17 07:04 Anisocytosis (manual) Slight 03/21/17 07:04 Microcytosis (manual) Slight 03/20/17 17:59 PT 12.0 SECONDS (9.7-12.2) 03/26/17 07:23 INR 1.1 03/26/17 07:23 APTT 38 SECONDS (21-34) H 03/19/17 10:46 pO2 26 mm/Hg (30-55) L 03/19/17 13:09 VBG pH 7.34 (7.32-7.43) 03/19/17 13:09 VBG pCO2 54 mmHg (40-60) 03/19/17 13:09 VBG HCO3 25.2 mmol/L 03/19/17 13:09 VBG Total CO2 30.8 mmol/L (22-28) H 03/19/17 13:09 VBG O2 Sat (Calc) 45.4 % (40-65) 03/19/17 13:09 VBG Base Excess 2.2 mmol/L (0.0-2.0) H 03/19/17 13:09 VBG Potassium 3.8 mmol/L (3.6-5.2) 03/19/17 13:09 Sodium 184.0 mmol/l (132-148) H* 03/19/17 13:09 Chloride 145.0 mmol/L (98-107) H 03/19/17 13:09 Glucose 110 mg/dl (75-110) 03/19/17 13:09 Lactate 1.9 mmol/L (0.7-2.1) 03/19/17 13:09 Crit Value Called To Dr.phem pike 03/19/17 13:09 Crit Value Called By lesly Gonzalez,car wash attendant automatic 03/19/17 13:09 Crit Value Read Back Y 03/19/17 13:09 Blood Gas Notified Time 1320 03/19/17 13:09 Sodium 137 mmol/L (132-148) 03/29/17 08:23 Potassium 3.9 mmol/L (3.6-5.2) 03/29/17 08:23 Chloride 98 mmol/L (98-107) 03/29/17 08:23 Carbon Dioxide 29 mmol/L (22-30) 03/29/17 08:23 Anion Gap 14 (10-20) 03/29/17 08:23 BUN 7 mg/dL (9-20) L 03/29/17 08:23 Creatinine 0.7 MG/DL (0.8-1.5) L 03/29/17 08:23 Est GFR ( Amer) > 60 03/29/17 08:23 Est GFR (Non-Af Amer) > 60 03/29/17 08:23 POC Glucose (mg/dL) 129 mg/dL (65-110) H 03/29/17 11:23 Random Glucose 90 mg/dL (75-110) 03/29/17 08:23 Calcium 8.7 mg/dl (8.6-10.4) 03/29/17 08:23 Phosphorus 3.3 mg/dL (2.5-4.5) 03/29/17 08:23 Magnesium 2.0 mg/dL (1.6-2.3) 03/29/17 08:23 Total Bilirubin 0.7 mg/dL (0.2-1.3) 03/29/17 08:23 AST 48 U/L (17-59) 03/29/17 08:23 ALT 49 U/L (21-72) 03/29/17 08:23 Alkaline Phosphatase 108 U/L (38-126) 03/29/17 08:23 Total Creatine Kinase 107 U/L (55-170) 03/19/17 10:46 CK-MB (Mass) 0.26 ng/mL (0.0-3.38) 03/19/17 10:46 Troponin I 0.0830 ng/mL (0.00-0.120) 03/19/17 10:46 Total Protein 7.1 g/dL (6.3-8.3) 03/29/17 08:23 Albumin 3.2 g/dL (3.5-5.0) L 03/29/17 08:23 Globulin 3.9 gm/dL (2.2-3.9) 03/29/17 08:23 Albumin/Globulin Ratio 0.8 (1.0-2.1) L 03/29/17 08:23 Procalcitonin 0.10 NG/ML (0.19-0.49) L 03/21/17 21:10 Venous Blood Potassium 3.8 mmol/L (3.6-5.2) 03/19/17 13:09 Urine Color Yellow (YELLOW) 03/19/17 11:45 Urine Clarity Hazy (Clear) 03/19/17 11:45 Urine pH 5.0 (5.0-8.0) 03/19/17 11:45 Ur Specific [place] 1.017 (1.003-1.030) 03/19/17 11:45 Urine Protein Negative mg/dL (NEGATIVE) 03/19/17 11:45 Urine Glucose (UA) Normal mg/dL (Normal) 03/19/17 11:45 Urine Ketones Negative mg/dL (NEGATIVE) 03/19/17 11:45 Urine Blood Negative (NEGATIVE) 03/19/17 11:45 Urine Nitrate Negative (NEGATIVE) 03/19/17 11:45 Urine Bilirubin Negative (NEGATIVE) 03/19/17 11:45 Urine Urobilinogen Normal mg/dL (0.2-1.0) 03/19/17 11:45 Ur Leukocyte Esterase Neg John/uL (Negative) 03/19/17 11:45 Urine WBC (Auto) 2 /hpf (0-5) 03/19/17 11:45 Urine RBC (Auto) 1 /hpf (0-3) 03/19/17 11:45 Ur Squamous Epith Cells < 1 /hpf (0-5) 03/19/17 11:45 Hyaline Casts 0-2 /lpf (0-2) 03/19/17 11:45 Attending/Attestation - Attestation I have personally seen and examined this patient.: Yes I have fully participated in the care of the patient.: Yes I have reviewed all pertinent clinical information, including history, physical exam and plan: Yes Notes (Text): 03/30/17 17:33 Patient discharged to rehabilitation facility I agree with the discharge note by the resident
== END 2017-03-29 15:00 | DRG 682 ==
LOC: C.ER 08:37 → C.9E 11:28 → C.6T 15:18
PROVIDERS: ADMIT Internal Medicine; ATTEND Internal Medicine
DX: N17.9 Acute kidney failure, unspecified (principal); E43 Unspecified severe protein-calorie malnutrition; E87.0 Hyperosmolality and hypernatremia; R15.9 Full incontinence of feces; E86.0 Dehydration; D72.829 Elevated white blood cell count, unspecified; I69.398 Other sequelae of cerebral infarction; Z87.891 Personal history of nicotine dependence; R62.7 Adult failure to thrive; I10 Essential (primary) hypertension; K59.00 Constipation, unspecified; R29.818 Other symptoms and signs involving the nervous system; E87.6 Hypokalemia; R45.1 Restlessness and agitation; Z87.820 Personal history of traumatic brain injury

== ENCOUNTER 2017-04-02 15:27 | Emergency (ER) | payer SELFPAY ==
--- NOTE | 2017-04-02 18:09 | C.PDOC ---
History Of Present Illness 61 year old male who presents to the ER from longterm with for a complaint of dehydration. states she signed the patient out of the longterm because she did not agree with the antipsycotic medication they were giving him for his dementia. wants the patient to be treated for dehydration because she states he was recently found to be dehydrated and believes that to be the reason for his dementia. Patient's denies patient has had symptoms of fever or chills. Prior visits reviewed from 02/03-02/17, patient had x-rays and CTs that were negative. Time Seen by Provider: 04/02/17 18:05 Chief Complaint (Nursing): Medical Clearance History Per: Patient History/Exam Limitations: no limitations Onset/Duration Of Symptoms: Days Current Symptoms Are (Timing): Still Present Recent travel outside of the [place]: No Past Medical History Reviewed: Historical Data, Nursing Documentation, Vital Signs Vital Signs: Last Vital Signs Temp 98 F 04/02/17 19:57 Pulse 76 04/02/17 19:57 Resp 16 04/02/17 19:57 BP 132/76 04/02/17 19:57 Pulse Ox 96 04/02/17 19:57 - Medical History PMH: HTN, Chronic Kidney Disease Surgical History: No Surg Hx Family History: States: Unknown Family Hx - Social History Hx Alcohol Use: No Hx Substance Use: No Review Of Systems Constitutional: Negative for: Fever, Chills Neurological: Positive for: Other (Demented) Physical Exam - Physical Exam Appears: Non-toxic, No Acute Distress, Other (Thin, cachectic, moaning) Skin: Normal Color, Warm, Dry Head: Atraumatic, Normacephalic Oral Mucosa: Dry Chest: Symmetrical, No Deformity Cardiovascular: Rhythm Regular, No Murmur Respiratory: Normal Breath Sounds, No Rales, No Rhonchi, No Wheezing Gastrointestinal/Abdominal: Soft, No Tenderness Neurological/Psych: Other (Disoriented which is baseline for patient as per , son, and prior records.) Gait: Unsteady ED Course And Treatment O2 Sat by Pulse Oximetry: 99 (Room air) Pulse Ox Interpretation: Normal Progress Note: declined lab tests, wants to take the patient home with anxiety medications and will follow up with Dr. Powers. Medical Decision Making Medical Decision Making: xanax given pt's now does NOT want lab tests nor eval reviewed d/c summary from 03/29: see all radiology neg w/u. reinforced to keep well hydrated and puree/honey thick diet. wants to take him home now and f/u with Dr. Powers as prior. Disposition Doctor Will See Patient In The: Office Counseled Patient/Family Regarding: Studies Performed, Diagnosis - Disposition Referrals: [facility] [Outside] [facility] [Outside] [facility] [Outside] Yaritza Powers MD [Staff Provider] - Disposition: HOME/ ROUTINE Disposition Time: 18:36 Condition: GOOD Additional Instructions: continue to keep well hydrated puree thick liquieds/food Follow-up with Dr. Powers or our outpatient Clinic. Prescriptions: Lorazepam [Ativan] 0.5 mg PO HS PRN #10 tab PRN Reason: Anxiety Instructions: Dementia (ED) - Clinical Impression Clinical Impression: Medical assessment, Dementia - Scribe Statement The provider has reviewed the documentation as recorded by the Scribalexandra Forte All medical record entries made by the Scribe were at my direction and personally dictated by me. I have reviewed the chart and agree that the record accurately reflects my personal performance of the history, physical exam, medical decision making, and the department course for this patient. I have also personally directed, reviewed, and agree with the discharge instructions and disposition.
[2017-04-02] MEDS ORDERED: Sodium Chloride 0.9% 1,000 ML IV ONE (18:17)
[2017-04-02 19:58] VITALS: BP 132/76; PULSE 76; RESP 16; TEMP 98
[2017-04-03 00:52] VITALS: O2SAT 99
== END 2017-04-02 19:57 | disposition home or self-care (01) ==
LOC: C.ER 15:27
DX: F03.90 Unspecified dementia, unspecified severity, without behavioral disturbance, psychotic disturbance, mood disturbance, and anxiety (principal)

== ENCOUNTER 2017-08-07 19:42 | Inpatient (IN) | payer MEDICARE ==
--- NOTE | 2017-08-07 20:10 | C.PDOC ---
History Of Present Illness 59 y/o male, history of TBI and dementia, presents for altered mental status and agitation. at bedside states pt has been increasingly agitated for the last few days, and has not been eating normally. Patient seen here previously; noted to be hypernatremia, admitted to hospital. Pt is a poor historian. denies fever, cough, other associated symptoms. On arrival, pt agitated, attempting to get out of stretcher. Ativan given on arrival. No other history provided. Time Seen by Provider: 08/07/17 20:00 History Per: Family () History/Exam Limitations: clinical condition Onset/Duration Of Symptoms: Days Current Symptoms Are (Timing): Still Present Recent travel outside of the [place]: No Past Medical History Reviewed: Historical Data, Nursing Documentation, Vital Signs Vital Signs: Last Vital Signs Temp 98.1 F 08/10/17 08:14 Pulse 76 08/10/17 08:14 Resp 20 08/10/17 08:14 BP 108/71 08/10/17 08:14 Pulse Ox 97 08/10/17 08:14 - Medical History PMH: HTN, Chronic Kidney Disease Family History: States: Unknown Family Hx - Social History Hx Alcohol Use: No Hx Substance Use: No Review Of Systems Except As Marked, All Systems Reviewed And Found Negative. Constitutional: Negative for: Fever Respiratory: Negative for: Cough Gastrointestinal: Negative for: Vomiting Neurological: Positive for: Altered Mental Status Psych: Positive for: Other (agitation) Physical Exam - Physical Exam Appears: Non-toxic, Unkempt, Other (agitated, mumbling) Skin: Normal Color, Warm, Dry Head: Atraumatic, Normacephalic Chest: Symmetrical Cardiovascular: Rhythm Regular Respiratory: Normal Breath Sounds, No Rales, No Rhonchi, No Wheezing Gastrointestinal/Abdominal: Soft, No Tenderness Back: Normal Inspection Extremity: Normal ROM, Capillary Refill (< 2 sec.) Neurological/Psych: Oriented x3, Normal Speech, Normal Cognition ED Course And Treatment - Laboratory Results Result Diagrams: 08/10/17 07:54 08/10/17 07:54 Medical Decision Making Medical Decision Making: pt unkept, agited, h/o of tbi- ativan given on arrival - r/o underlying medical etiology- labs imaging pending 1030: pt with la. will cover emprically as whife reports urinary frequency. pt midlly hypernatmric, dehydrated.l ivf initialted. accepted by dr finch for admission Disposition - Disposition Disposition: HOSPITALIZED Disposition Time: 08:00 Condition: STABLE - Clinical Impression Clinical Impression: Weakness, Dementia, Failure to thrive, Hypernatremia - Scribe Statement The provider has reviewed the documentation as recorded by the Scribe Provider Attestation: SM All medical record entries made by the Scribe were at my direction and personally dictated by me. I have reviewed the chart and agree that the record accurately reflects my personal performance of the history, physical exam, medical decision making, and the department course for this patient. I have also personally directed, reviewed, and agree with the discharge instructions and disposition. Decision To Admit - Pt Status Changed To: Hospital Disposition Of: Inpatient - Admit Certification Admit to Inpatient:: After my assessment, the patient will require hospitalization for at least two midnights. This is because of the severity of symptoms shown, intensity of services needed, and/or the medical risk in this patient being treated as an outpatient. - InPatient: Physician Admission Certification: I certify that this patient requires 2 or more midnights of care for the following reason:: needs iv fluids, placement - . Bed Request Type: Regular Admitting Physician: Amilcar Finch Patient Diagnosis: Weakness, Dementia, Failure to thrive, Hypernatremia
[2017-08-07 21:02] LABS: VENOUS BLOOD GAS BASE EXCESS 2.8 mmol/L (0.0-2.0); VENOUS BLOOD GAS PCO2 40 mmHg (40-60); VENOUS BLOOD PH 7.44 (7.32-7.43)
--- NOTE | 2017-08-07 21:12 | CT ---
EXAM: CT Head Without Intravenous Contrast CLINICAL HISTORY: 61 years old, male; Signs and symptoms; Altered mental status/memory loss; Additional info: AMS TECHNIQUE: Axial computed tomography images of the head/brain without intravenous contrast. All CT scans at this facility use one or more dose reduction techniques, viz.: automated exposure control; ma/kV adjustment per patient size (including targeted exams where dose is matched to indication; i.e. head); or iterative reconstruction technique. COMPARISON: No relevant prior studies available. FINDINGS: Brain: No acute intracranial hemorrhage. Age-appropriate periventricular white matter disease. No edema. Ventricles: Age-appropriate ventriculomegaly. Bones: No acute displaced fracture. Sinuses: Unremarkable as visualized. No acute sinusitis. Mastoid air cells: Unremarkable as visualized. No mastoid effusion. IMPRESSION: No acute intracranial hemorrhage, or suspicious mass effect.
[2017-08-07 21:15] LABS: ALKALINE PHOSPHATASE 70 U/L (38-126); ALT/SGPT 25 U/L (21-72); AST/SGOT 21 U/L (17-59); BILIRUBIN,TOTAL 0.8 mg/dL (0.2-1.3); BLOOD UREA NITROGEN 28 mg/dL (9-20); CALCIUM 8.2 mg/dl (8.6-10.4); CARBON DIOXIDE 21 mmol/L (22-30); CHLORIDE 115 mmol/L (98-107); GFR AFRICAN-AMERICAN > 60; GLUCOSE,RANDOM 101 mg/dL (75-110); POTASSIUM 3.6 mmol/L (3.6-5.2); SODIUM 152 mmol/L (132-148); TOTAL PROTEIN 7.9 g/dL (6.3-8.3)
[2017-08-07 21:29] LABS: BASO % 0.8 % (0.0-2.0); EOS # 0.1 K/uL (0.0-0.7); HEMATOCRIT 39.1 % (35.0-51.0); LYMPH # 1.4 K/uL (1.0-4.3); LYMPH % 26.3 % (20.0-40.0); MEAN CELL VOLUME 70.9 fL (80.0-94.0); MEAN CORPUSCULAR HEMOGLOBIN 22.7 pg (27.0-31.0); MEAN PLATELET VOLUME 10.1 fL (7.2-11.7); MONO # 0.5 K/uL (0.0-0.8); RED CELL DISTRIBUTION WIDTH 25.1 % (11.5-14.5); WHITE BLOOD COUNT 5.5 K/uL (4.8-10.8)
[2017-08-07] MEDS ORDERED: Sodium Chloride 0.9% 1,000 ML ONE (21:33)
[2017-08-07] MEDS: Sodium Chloride 0.9% 1,000 ML IV SCH (21:35)
[2017-08-07 21:44] LABS: INR 1.2
[2017-08-07] MEDS ORDERED: cefTRIAXone IV 1 gm in Dextros 50 ML IVPB STA (21:58)
[2017-08-07] MEDS ORDERED: cefTRIAXone IV 1 gm in Dextros 50 ML IVPB ONE (22:09)
[2017-08-08] MEDS ORDERED: Sodium Chloride 0.45% 1,000 ML IV SCH (01:15)
[2017-08-08 03:32] VITALS: RESP 20
--- NOTE | 2017-08-08 04:26 | CP.PCM.HP ---
<Giovanna Payne - Last Filed: 08/08/17 04:23> History of Present Illness - History of Present Illness History of Present Illness: CC: Dehydration, Failure to thrive HPI: 61 year old male with a history of TBI and dementia presented to the ED with altered mental status and agitation. Patient had TBI ten years ago, and his health has gradually declined since then. He has been nonverbal for the past two years, and has had urinary/fecal incontinence for the past four years. Patient is able to ambulate on his own. His , who is his primary caregiver, reports that the patient has been agitated and increasingly somnolent the last few days, and that he also has not been eating normally. Patient cannot provide any information as he is nonverbal and baseline AMS. denies fever, cough. Patient was agitated on arrival, and Ativan was given. Patient was sleeping comfortably when seen and examined at bedside later in the evening. PMH: HTN, CKD, TBI, dementia PSH: Unknown Family History: Unknown Medications: Ativan .5 mg q6 PRN, Milk of Magnesia 30 ml HS, Famotidine 20 mg BID, Tylenol 650 mg q4 prn, Tylenol 325 mg q4 PRN, Ativan 0.5 mg HS prn Allergies: NKDA Social History: Former smoker, no drug or alcohol use Present on Admission - Present on Admission Any Indicators Present on Admission: No History of DVT/PE: No History of Uncontrolled Diabetes: No Urinary Catheter: No Decubitus Ulcer Present: No Review of Systems - Review of Systems Systems not reviewed;Unavailable: Acuity of Condition, Altered Mental Status Past Patient History - Past Medical History & Family History Past Medical History?: Yes - Past Social History Smoking Status: Former Smoker - CARDIAC Hx Hypertension: Yes - PULMONARY Hx Respiratory Disorders: No - NEUROLOGICAL Hx Neurological Disorder: Yes HX Cerebrovascular Accident: Yes - HEENT Hx HEENT Problems: No - RENAL Hx Chronic Kidney Disease: Yes - ENDOCRINE/METABOLIC Hx Endocrine Disorders: No - HEMATOLOGICAL/ONCOLOGICAL Hx Blood Disorders: No - INTEGUMENTARY Hx Dermatological Problems: No - MUSCULOSKELETAL/RHEUMATOLOGICAL Hx Musculoskeletal Disorders: Yes Hx Falls: Yes - GASTROINTESTINAL Hx Gastrointestinal Disorders: Yes Hx Constipation: Yes - GENITOURINARY/GYNECOLOGICAL Hx Genitourinary Disorders: Yes Hx Incontinence: Yes - PSYCHIATRIC Hx Substance Use: No - SURGICAL HISTORY Hx Surgeries: Yes Hx Herniorrhaphy: Yes - ANESTHESIA Hx Anesthesia: Yes Hx Anesthesia Reactions: No Hx Malignant Hyperthermia: No Meds Allergies/Adverse Reactions: Allergies Allergy/AdvReac Type Severity Reaction Status Date / Time No Known Allergies Allergy Verified 08/07/17 20:25 Physical Exam - Constitutional Appears: Non-toxic, No Acute Distress, Chronically Ill - Head Exam Head Exam: ATRAUMATIC, NORMAL INSPECTION, NORMOCEPHALIC - Eye Exam Eye Exam: EOMI, Normal appearance - ENT Exam ENT Exam: Mucous Membranes Dry - Respiratory Exam Respiratory Exam: Clear to Auscultation Bilateral, NORMAL BREATHING PATTERN. absent: Rales, Rhonchi, Wheezes, Respiratory Distress, Stridor - Cardiovascular Exam Cardiovascular Exam: REGULAR RHYTHM, +S1, +S2 - GI/Abdominal Exam GI & Abdominal Exam: Normal Bowel Sounds, Soft. absent: Tenderness - Extremities Exam Extremities exam: Positive for: normal inspection. Negative for: pedal edema, tenderness - Skin Skin Exam: Dry, Intact, Warm Results - Vital Signs Recent Vital Signs: Last Vital Signs Temp 98.2 F 08/08/17 02:30 Pulse 86 08/08/17 02:30 Resp 20 08/08/17 02:30 BP 129/69 08/08/17 02:30 Pulse Ox 100 08/08/17 02:30 - Labs Result Diagrams: 08/07/17 21:20 08/07/17 20:54 Labs: Laboratory Results - last 24 hr 08/07/17 08/07/17 08/07/17 20:44 20:54 20:55 WBC RBC Hgb Hct MCV MCH MCHC RDW Plt Count MPV Neut % (Auto) Lymph % (Auto) [place] % (Auto) Eos % (Auto) Baso % (Auto) Neut # Lymph # [place] # Eos # Baso # PT INR APTT pO2 64 H VBG pH 7.44 H VBG pCO2 40 VBG HCO3 27.0 VBG Total CO2 28.4 H VBG O2 Sat (Calc) 96.8 H VBG Base Excess 2.8 H VBG Potassium 3.6 Glucose 115 H Lactate 2.8 H FiO2 21.0 Sodium 152 H 157.0 H Potassium 3.6 Chloride 115 H 129.0 H Carbon Dioxide 21 L Anion Gap 20 BUN 28 H Creatinine 0.9 Est GFR ( Amer) > 60 Est GFR (Non-Af Amer) > 60 POC Glucose (mg/dL) 105 Random Glucose 101 Lactic Acid Calcium 8.2 L Total Bilirubin 0.8 AST 21 ALT 25 Alkaline Phosphatase 70 Troponin I < 0.0120 Total Protein 7.9 Albumin 3.9 Globulin 3.9 Albumin/Globulin Ratio 1.0 Venous Blood Potassium 3.6 08/07/17 08/07/17 08/08/17 21:20 21:20 00:48 WBC 5.5 RBC 5.52 Hgb 12.5 Hct 39.1 MCV 70.9 L D MCH 22.7 L MCHC 32.0 L RDW 25.1 H Plt Count 179 MPV 10.1 Neut % (Auto) 61.9 Lymph % (Auto) 26.3 [place] % (Auto) 10.0 Eos % (Auto) 1.0 Baso % (Auto) 0.8 Neut # 3.4 Lymph # 1.4 [place] # 0.5 Eos # 0.1 Baso # 0.0 PT 13.2 H INR 1.2 APTT 34 pO2 VBG pH VBG pCO2 VBG HCO3 VBG Total CO2 VBG O2 Sat (Calc) VBG Base Excess VBG Potassium Glucose Lactate FiO2 Sodium Potassium Chloride Carbon Dioxide Anion Gap BUN Creatinine Est GFR ( Amer) Est GFR (Non-Af Amer) POC Glucose (mg/dL) Random Glucose Lactic Acid 0.9 Calcium Total Bilirubin AST ALT Alkaline Phosphatase Troponin I Total Protein Albumin Globulin Albumin/Globulin Ratio Venous Blood Potassium Assessment & Plan - Assessment and Plan (Free Text) Assessment: Failure to Thrive f/u Folate, Iron, TIBC, TSH, Vit B12, Vit D 25 OH explained that she should think about intermediate care placement for patient as 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 Dehydration NS @ 100 cc/hr Prophylactic Measures DVT: Heparin 5000u sc q12h Palliative Care consulted, help appreciated Speech therapy screen OT <Amilcar Villarreal P - Last Filed: 08/08/17 07:19> Results - Vital Signs Recent Vital Signs: Last Vital Signs Temp 98.2 F 08/08/17 02:30 Pulse 86 08/08/17 02:30 Resp 20 08/08/17 02:30 BP 129/69 08/08/17 02:30 Pulse Ox 100 08/08/17 02:30 - Labs Result Diagrams: 08/07/17 21:20 08/07/17 20:54 Labs: Laboratory Results - last 24 hr 08/07/17 08/07/17 08/07/17 20:44 20:54 20:55 WBC RBC Hgb Hct MCV MCH MCHC RDW Plt Count MPV Neut % (Auto) Lymph % (Auto) [place] % (Auto) Eos % (Auto) Baso % (Auto) Neut # Lymph # [place] # Eos # Baso # PT INR APTT pO2 64 H VBG pH 7.44 H VBG pCO2 40 VBG HCO3 27.0 VBG Total CO2 28.4 H VBG O2 Sat (Calc) 96.8 H VBG Base Excess 2.8 H VBG Potassium 3.6 Glucose 115 H Lactate 2.8 H FiO2 21.0 Sodium 152 H 157.0 H Potassium 3.6 Chloride 115 H 129.0 H Carbon Dioxide 21 L Anion Gap 20 BUN 28 H Creatinine 0.9 Est GFR ( Amer) > 60 Est GFR (Non-Af Amer) > 60 POC Glucose (mg/dL) 105 Random Glucose 101 Lactic Acid Calcium 8.2 L Total Bilirubin 0.8 AST 21 ALT 25 Alkaline Phosphatase 70 Troponin I < 0.0120 Total Protein 7.9 Albumin 3.9 Globulin 3.9 Albumin/Globulin Ratio 1.0 Venous Blood Potassium 3.6 08/07/17 08/07/17 08/08/17 21:20 21:20 00:48 WBC 5.5 RBC 5.52 Hgb 12.5 Hct 39.1 MCV 70.9 L D MCH 22.7 L MCHC 32.0 L RDW 25.1 H Plt Count 179 MPV 10.1 Neut % (Auto) 61.9 Lymph % (Auto) 26.3 [place] % (Auto) 10.0 Eos % (Auto) 1.0 Baso % (Auto) 0.8 Neut # 3.4 Lymph # 1.4 [place] # 0.5 Eos # 0.1 Baso # 0.0 PT 13.2 H INR 1.2 APTT 34 pO2 VBG pH VBG pCO2 VBG HCO3 VBG Total CO2 VBG O2 Sat (Calc) VBG Base Excess VBG Potassium Glucose Lactate FiO2 Sodium Potassium Chloride Carbon Dioxide Anion Gap BUN Creatinine Est GFR ( Amer) Est GFR (Non-Af Amer) POC Glucose (mg/dL) Random Glucose Lactic Acid 0.9 Calcium Total Bilirubin AST ALT Alkaline Phosphatase Troponin I Total Protein Albumin Globulin Albumin/Globulin Ratio Venous Blood Potassium Attending/Attestation - Attestation I have personally seen and examined this patient.: Yes I have fully participated in the care of the patient.: Yes I have reviewed all pertinent clinical information: Yes Notes (Text): Assessment/Plan * End stage dementia patient dependent on for bowel, bladder, food, does not talk or communicate, but as per can walk and physically strong and difficult to manage * Significant dehydration on exam poor intake as per for last few days, no fever or wbc count, clinically not septic. 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
[2017-08-08 06:03] VITALS: BMI 14.9
[2017-08-08] MEDS: Sodium Chloride 0.9% 1,000 ML IV SCH (07:15)
[2017-08-08 08:05] LABS: BASO # 0.1 K/uL (0.0-0.2); BASO % 0.9 % (0.0-2.0); EOS # 0.1 K/uL (0.0-0.7); EOS % 1.5 % (0.0-4.0); HEMATOCRIT 41.4 % (35.0-51.0); LYMPH # 1.4 K/uL (1.0-4.3); LYMPH % 22.8 % (20.0-40.0); MEAN CELL VOLUME 71.8 fL (80.0-94.0); MEAN CORPUSCULAR HEMOGLOBIN 22.6 pg (27.0-31.0); MEAN CORPUSCULAR HGB CONC 31.4 g/dL (33.0-37.0); MEAN PLATELET VOLUME 9.3 fL (7.2-11.7); MONO # 0.6 K/uL (0.0-0.8); MONO % 10.4 % (0.0-10.0); NRBC % 0.1 % (0.0-2.0); RED CELL DISTRIBUTION WIDTH 25.7 % (11.5-14.5); WHITE BLOOD COUNT 6.2 K/uL (4.8-10.8)
--- NOTE | 2017-08-08 08:19 | RAD ---
PROCEDURE: CHEST RADIOGRAPH, 1 VIEW HISTORY: chest pain COMPARISON: Chest radiograph 03/19/2017. FINDINGS: LUNGS: No acute infiltrate bilaterally. PLEURA: No pneumothorax or pleural fluid seen. CARDIOVASCULAR: Normal. OSSEOUS STRUCTURES: No significant abnormalities. VISUALIZED UPPER ABDOMEN: Normal. OTHER FINDINGS: None. IMPRESSION: No interval acute cardiopulmonary disease appreciated.
[2017-08-08 08:33] LABS: ALKALINE PHOSPHATASE 77 U/L (38-126); ALT/SGPT 23 U/L (21-72); AST/SGOT 20 U/L (17-59); BLOOD UREA NITROGEN 24 mg/dL (9-20); CALCIUM 8.1 mg/dl (8.6-10.4); CARBON DIOXIDE 27 mmol/L (22-30); CHLORIDE 114 mmol/L (98-107); GFR AFRICAN-AMERICAN > 60; GLUCOSE,RANDOM 83 mg/dL (75-110); PHOSPHOROUS 3.1 mg/dL (2.5-4.5); POTASSIUM 3.5 mmol/L (3.6-5.2); SODIUM 152 mmol/L (132-148); TOTAL PROTEIN 7.5 g/dL (6.3-8.3)
[2017-08-08 09:05] LABS: VITAMIN D 25 OH TOTAL 16.4 NG/ML (30.0-100.0)
[2017-08-08 09:21] LABS: THYROID STIMULATING HORMONE 0.67 mIU/L (0.46-4.68)
[2017-08-08 09:56] LABS: FOLATE 11.5 ng/mL
--- NOTE | 2017-08-08 11:10 | CP.PCM.PN ---
<Janna Washington - Last Filed: 08/08/17 11:06> Subjective - Date & Time of Evaluation Date of Evaluation: 08/08/17 Time of Evaluation: 11:08 - Subjective Subjective: Medicine Progress Note: Dr. Khan Patient was seen and examined at bedside in no acute distress. Patient's is at bedside. Patient is nonverbal; therefore review of systems unobtainable. Objective - Vital Signs/Intake and Output Vital Signs (last 24 hours): Temp Pulse Resp BP Pulse Ox 97.1 F L 98 H 20 103/63 96 08/08/17 08:25 08/08/17 08:25 08/08/17 08:25 08/08/17 08:25 08/08/17 08:25 Intake and Output: 08/08/17 08/08/17 06:59 18:59 Intake Total 400 Output Total 0 Balance 400 - Medications Medications: Current Medications Ergocalciferol (Drisdol 50,000 Intl Units Cap) 1 cap PO Q7D [facility] Stop: 09/26/17 11:15 Heparin Sodium (Porcine) (Heparin) 5,000 units SC Q12 [facility] Last Admin: 08/08/17 09:38 Dose: Not Given Sodium Chloride (Sodium Chloride 0.9%) 1,000 mls @ 100 mls/hr IV .Q10H [facility] Last Admin: 08/08/17 07:15 Dose: Not Given Potassium Chloride 20 meq/ (Sodium Chloride) 1,010 mls @ 50 mls/hr IV .[id number] [facility] - Labs Labs: 08/08/17 07:58 08/08/17 07:58 PT 13.2 SECONDS (9.7-12.2) H 08/07/17 21:20 INR 1.2 08/07/17 21:20 APTT 34 SECONDS (21-34) 08/07/17 21:20 - Constitutional Appears: No Acute Distress - Head Exam Head Exam: ATRAUMATIC, NORMAL INSPECTION - Eye Exam Eye Exam: Normal appearance - ENT Exam ENT Exam: Mucous Membranes Dry - Respiratory Exam Respiratory Exam: Decreased Breath Sounds, Clear to Ausculation Bilateral, NORMAL BREATHING PATTERN. absent: Rales, Rhonchi, Wheezes, Respiratory Distress - Cardiovascular Exam Cardiovascular Exam: REGULAR RHYTHM, +S1, +S2 - GI/Abdominal Exam GI & Abdominal Exam: Soft, Normal Bowel Sounds. 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 * Folate: 11.5 * Iron 70 * TIBC 348 * TSH 0.67 * Vit B12 286 * Vit D 25 OH 16.4 * Started Ergocalciferol 50,000 Q7days for 8 weeks. Status: Acute (2) Dehydration Assessment & Plan: Discontinued NS @ 100 cc/hr Started 1/ NS with 20mEq K @50mls/hr Status: Acute (3) Prophylactic measure Assessment & Plan: DVT: Heparin 5000u SC Q12h Palliative Care consulted, help appreciated Speech therapy screen OT Status: Acute <Cody Khan - Last Filed: 08/08/17 19:10> Objective - Vital Signs/Intake and Output Vital Signs (last 24 hours): Temp Pulse Resp BP Pulse Ox 98.3 F 72 20 106/63 100 08/08/17 15:59 08/08/17 15:59 08/08/17 15:59 08/08/17 15:59 08/08/17 15:59 Intake and Output: 08/08/17 08/09/17 18:59 06:59 Intake Total 1050 Output Total 0 Balance 1050 - Medications Medications: Current Medications Ergocalciferol (Drisdol 50,000 Intl Units Cap) 1 cap PO Q7D [facility] Stop: 09/26/17 11:15 Last Admin: 08/08/17 12:00 Dose: 1 cap Heparin Sodium (Porcine) (Heparin) 5,000 units SC Q12 [facility] Last Admin: 08/08/17 09:38 Dose: Not Given Potassium Chloride 20 meq/ (Sodium Chloride) 1,010 mls @ 50 mls/hr IV .[id number] [facility] Last Admin: 08/08/17 12:39 Dose: 50 mls/hr - Labs Labs: 08/08/17 07:58 08/08/17 07:58 PT 13.2 SECONDS (9.7-12.2) H 08/07/17 21:20 INR 1.2 08/07/17 21:20 APTT 34 SECONDS (21-34) 08/07/17 21:20 Attending/Attestation - Attestation I have personally seen and examined this patient.: Yes I have fully participated in the care of the patient.: Yes I have reviewed all pertinent clinical information, including history, physical exam and plan: Yes Notes (Text): 08/08/17 19:02 Patient was seen and examined shortly after resident. Exam, Assessment and Plan were thoroughly gone over with the resident. Assessments: 1). Hx Dementia/Traumatic Brain Injury: CT Head does not show any acute hemorrhage/mass effect 2). Hx CKD: BUN/Cr and GFR are currently normal 3). Hx HTN: he is not on any home medication. Blood Pressure is currently controlled. 4). Hypernatremia: treat with D5 1/2 NS with 20 mEQ KCl at 50 ml/hour. 5). Vitamin D Deficiency: treat with 50,000 Units PO once a week for 8 weeks on Wednesdays with last dose 09/26/17. 6). Abnormal RBC Indices: consider beginnings of Iron Deficiency. F/U Total Iron , Ferritin, TIBC, % Saturation. 7). Increased Frequency Urination: F/U UA Patient was seen by Palliative Care Nurse Chinedu. does not feel like she can take care of patient but is concerned about the care that patient will receive at termite control service representative care facility. I spoke with Cork Grinder Alissa and Printmaker Madi and they are working on placement for patient. Cody Khan D.O.
[2017-08-08] MEDS: Ergocalciferol 50,000 Intl Units Cap PO SCH (12:00)
[2017-08-08] MEDS: Potassium Chloride 20 MEQ in Sodium Chloride 0.45% 1,000 ML IV SCH (12:39)
--- NOTE | 2017-08-08 15:04 | CP.PCM.CON ---
History of Present Illness - History of Present Illness History of Present Illness: Palliative consult for goals of care discussion Patient is a 61 yo male admitted from home with AMS X hew days, increased sleeping and decreased appetite. 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 She also reported that patient was urinating more often than usual. Patient was treated in the past at [facility] for his AMS episodes and as per , he got worse after was given " psych meds', whose names she could not recall. The CT head upon admission was negative bleeding. Patient's who reports neglecting herself in order to take care of and complained of right foot pain and swelling. They both were admitted and placed in the same room. PMH: HTN, CKD, advanced dementia Soc. Hx: , lives at home with , no children, family in [place] Fam. hx: Parents alive, in [place] Review of Systems - Review of Systems Review of Systems: Nonverbal and confused Past Patient History - Past Medical History & Family History Past Medical History?: Yes - Past Social History Smoking Status: Former Smoker - CARDIAC Hx Hypertension: Yes - PULMONARY Hx Respiratory Disorders: No - NEUROLOGICAL Hx Neurological Disorder: Yes HX Cerebrovascular Accident: Yes - HEENT Hx HEENT Problems: No - RENAL Hx Chronic Kidney Disease: Yes - ENDOCRINE/METABOLIC Hx Endocrine Disorders: No - HEMATOLOGICAL/ONCOLOGICAL Hx Blood Disorders: No - INTEGUMENTARY Hx Dermatological Problems: No - MUSCULOSKELETAL/RHEUMATOLOGICAL Hx Musculoskeletal Disorders: Yes Hx Falls: Yes - GASTROINTESTINAL Hx Gastrointestinal Disorders: Yes Hx Constipation: Yes - GENITOURINARY/GYNECOLOGICAL Hx Genitourinary Disorders: Yes Hx Incontinence: Yes - PSYCHIATRIC Hx Substance Use: No - SURGICAL HISTORY Hx Surgeries: Yes Hx Herniorrhaphy: Yes - ANESTHESIA Hx Anesthesia: Yes Hx Anesthesia Reactions: No Hx Malignant Hyperthermia: No Meds Allergies/Adverse Reactions: Allergies Allergy/AdvReac Type Severity Reaction Status Date / Time No Known Allergies Allergy Verified 08/07/17 20:25 - Medications Medications: Current Medications Ergocalciferol (Drisdol 50,000 Intl Units Cap) 1 cap PO Q7D [facility] Stop: 09/26/17 11:15 Last Admin: 08/08/17 12:00 Dose: 1 cap Heparin Sodium (Porcine) (Heparin) 5,000 units SC Q12 [facility] Last Admin: 08/08/17 09:38 Dose: Not Given Sodium Chloride (Sodium Chloride 0.9%) 1,000 mls @ 100 mls/hr IV .Q10H [facility] Last Admin: 08/08/17 07:15 Dose: Not Given Potassium Chloride 20 meq/ (Sodium Chloride) 1,010 mls @ 50 mls/hr IV .[id number] [facility] Last Admin: 08/08/17 12:39 Dose: 50 mls/hr Physical Exam - Constitutional Appears: Chronically Ill - Head Exam Head Exam: ATRAUMATIC, NORMAL INSPECTION, NORMOCEPHALIC - Eye Exam Eye Exam: EOMI, Normal appearance, PERRL Pupil Exam: NORMAL ACCOMODATION, PERRL - ENT Exam ENT Exam: Mucous Membranes Moist, Normal Exam - Neck Exam Neck exam: Positive for: Normal Inspection - Respiratory Exam Respiratory Exam: NORMAL BREATHING PATTERN - Cardiovascular Exam Cardiovascular Exam: Tachycardia, REGULAR RHYTHM - GI/Abdominal Exam GI & Abdominal Exam: Normal Bowel Sounds - Rectal Exam Rectal Exam: Deferred - Exam Exam: NORMAL INSPECTION - Extremities Exam Extremities exam: Positive for: normal inspection - Back Exam Back exam: NORMAL INSPECTION - Neurological Exam Neurological exam: Alert, Altered, Motor Sensory Deficit - Psychiatric Exam Psychiatric exam: Agitated, Flat Affect - Skin Skin Exam: Normal Color, Warm Results - Vital Signs Recent Vital Signs: Last Vital Signs Temp 97.1 F L 08/08/17 08:25 Pulse 98 H 08/08/17 08:25 Resp 20 08/08/17 08:25 BP 103/63 08/08/17 08:25 Pulse Ox 96 08/08/17 08:25 - Labs Result Diagrams: 08/08/17 07:58 08/08/17 07:58 Labs: Laboratory Results - last 24 hr 08/07/17 08/07/17 08/07/17 20:44 20:54 20:55 WBC RBC Hgb Hct MCV MCH MCHC RDW Plt Count MPV Neut % (Auto) Lymph % (Auto) [place] % (Auto) Eos % (Auto) Baso % (Auto) Neut # Lymph # [place] # Eos # Baso # PT INR APTT pO2 64 H VBG pH 7.44 H VBG pCO2 40 VBG HCO3 27.0 VBG Total CO2 28.4 H VBG O2 Sat (Calc) 96.8 H VBG Base Excess 2.8 H VBG Potassium 3.6 Glucose 115 H Lactate 2.8 H FiO2 21.0 Sodium 152 H 157.0 H Potassium 3.6 Chloride 115 H 129.0 H Carbon Dioxide 21 L Anion Gap 20 BUN 28 H Creatinine 0.9 Est GFR ( Amer) > 60 Est GFR (Non-Af Amer) > 60 POC Glucose (mg/dL) 105 Random Glucose 101 Lactic Acid Calcium 8.2 L Phosphorus Magnesium Iron TIBC % Saturation Total Bilirubin 0.8 AST 21 ALT 25 Alkaline Phosphatase 70 Troponin I < 0.0120 Total Protein 7.9 Albumin 3.9 Globulin 3.9 Albumin/Globulin Ratio 1.0 Vitamin B12 25-OH Vitamin D Total Folate TSH 3rd Generation Venous Blood Potassium 3.6 08/07/17 08/07/17 08/08/17 21:20 21:20 00:48 WBC 5.5 RBC 5.52 Hgb 12.5 Hct 39.1 MCV 70.9 L D MCH 22.7 L MCHC 32.0 L RDW 25.1 H Plt Count 179 MPV 10.1 Neut % (Auto) 61.9 Lymph % (Auto) 26.3 [place] % (Auto) 10.0 Eos % (Auto) 1.0 Baso % (Auto) 0.8 Neut # 3.4 Lymph # 1.4 [place] # 0.5 Eos # 0.1 Baso # 0.0 PT 13.2 H INR 1.2 APTT 34 pO2 VBG pH VBG pCO2 VBG HCO3 VBG Total CO2 VBG O2 Sat (Calc) VBG Base Excess VBG Potassium Glucose Lactate FiO2 Sodium Potassium Chloride Carbon Dioxide Anion Gap BUN Creatinine Est GFR ( Amer) Est GFR (Non-Af Amer) POC Glucose (mg/dL) Random Glucose Lactic Acid 0.9 Calcium Phosphorus Magnesium Iron TIBC % Saturation Total Bilirubin AST ALT Alkaline Phosphatase Troponin I Total Protein Albumin Globulin Albumin/Globulin Ratio Vitamin B12 25-OH Vitamin D Total Folate TSH 3rd Generation Venous Blood Potassium 08/08/17 08/08/17 08/08/17 07:28 07:58 07:58 WBC 6.2 RBC 5.77 Hgb 13.0 Hct 41.4 MCV 71.8 L MCH 22.6 L MCHC 31.4 L RDW 25.7 H Plt Count 166 MPV 9.3 Neut % (Auto) 64.4 Lymph % (Auto) 22.8 [place] % (Auto) 10.4 H Eos % (Auto) 1.5 Baso % (Auto) 0.9 Neut # 4.0 Lymph # 1.4 [place] # 0.6 Eos # 0.1 Baso # 0.1 PT INR APTT pO2 VBG pH VBG pCO2 VBG HCO3 VBG Total CO2 VBG O2 Sat (Calc) VBG Base Excess VBG Potassium Glucose Lactate FiO2 Sodium 152 H Potassium 3.5 L Chloride 114 H Carbon Dioxide 27 Anion Gap 15 BUN 24 H Creatinine 0.8 Est GFR ( Amer) > 60 Est GFR (Non-Af Amer) > 60 POC Glucose (mg/dL) 82 Random Glucose 83 Lactic Acid Calcium 8.1 L Phosphorus 3.1 Magnesium 2.0 Iron TIBC % Saturation Total Bilirubin 1.0 AST 20 ALT 23 Alkaline Phosphatase 77 Troponin I Total Protein 7.5 Albumin 3.7 Globulin 3.8 Albumin/Globulin Ratio 1.0 Vitamin B12 286 25-OH Vitamin D Total Folate 11.5 TSH 3rd Generation 0.67 Venous Blood Potassium 08/08/17 08/08/17 07:58 11:46 WBC RBC Hgb Hct MCV MCH MCHC RDW Plt Count MPV Neut % (Auto) Lymph % (Auto) [place] % (Auto) Eos % (Auto) Baso % (Auto) Neut # Lymph # [place] # Eos # Baso # PT INR APTT pO2 VBG pH VBG pCO2 VBG HCO3 VBG Total CO2 VBG O2 Sat (Calc) VBG Base Excess VBG Potassium Glucose Lactate FiO2 Sodium Potassium Chloride Carbon Dioxide Anion Gap BUN Creatinine Est GFR ( Amer) Est GFR (Non-Af Amer) POC Glucose (mg/dL) 90 Random Glucose Lactic Acid Calcium Phosphorus Magnesium Iron 70 TIBC 348 % Saturation 20 Total Bilirubin AST ALT Alkaline Phosphatase Troponin I Total Protein Albumin Globulin Albumin/Globulin Ratio Vitamin B12 25-OH Vitamin D Total 16.4 L Folate TSH 3rd Generation Venous Blood Potassium Assessment & Plan - Assessment and Plan (Free Text) Assessment: Palliative consult Code status DNR/DNI, POLST on chart, PPS 10% I reviewed medical records, all diagnostic studies, examined patient in the bed and discussed goals of care with his at bed side. Patient is alert, very confused, restless at time, cachectic looking. denies patient lost any weight and reports he has a good appetite. Patient is aphasic and does not fallow commends. Patient responds well to his voice; calms down when she talks to him. The beliefs he understands her. BP 103/63, HR 98. WBC 6.2, Hb 13.0, Na 152. IVF on board. Goals of care discussed with . She reports not being able to take care of any more as he become completely dependent on her for ADLs and she neglected hr health because of him. 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 Appropriate health care insurance is concern as well and the asked for assistance in Applying for one. Code status discussed. I corrected her knowledge regarding progressive and debilitating nature of Dementia and discussed end of life care. 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 The would like patient to be comfortable and safe as much as possible. She plans on bringing him back to [place] when he is stable to travel. She said his wishes were to be with his family. POLST discussed. was very clear that she would want natural if his condition becoms terminal and meaningful recovery was not expected. She choose DNR/DNI as she believed those were her wishes as well. Impression * Advanced dementia * Patient heavily depends on help with ADLs * Patient responds well to his voice only * states need to be guided in process of applying for adequate health insurance * aknowledges need for extra hel and would like him be placed as a [facility] resident; if that was not an option than she would like some help at home Suggestions * Promote safety and assist with ADLs * SS to assist in answering questions regarding the health insurance * Consider VNS once patient discharged home * Neurology exam for evaluation and treatment of dementia * DNR/DNI, POL on chart
--- NOTE | 2017-08-09 07:27 | CP.PCM.PN ---
Subjective - Date & Time of Evaluation Date of Evaluation: 08/09/17 Time of Evaluation: 07:25 - Subjective Subjective: Medicine Progress Note: Dr. Khan Patient was seen and examined at bedside; is present. Patient is walking around the room, listening to music, and in no acute distress. As per , patient is doing well. Patient is nonverbal; therefore review of systems unobtainable. Objective - Vital Signs/Intake and Output Vital Signs (last 24 hours): Temp Pulse Resp BP Pulse Ox 98.3 F 72 20 106/63 100 08/08/17 15:59 08/08/17 15:59 08/08/17 15:59 08/08/17 15:59 08/08/17 15:59 Intake and Output: 08/09/17 08/09/17 06:59 18:59 Intake Total 1300 Output Total 500 Balance 800 - Medications Medications: Current Medications Ergocalciferol (Drisdol 50,000 Intl Units Cap) 1 cap PO Q7D [facility] Stop: 09/26/17 11:15 Last Admin: 08/08/17 12:00 Dose: 1 cap Heparin Sodium (Porcine) (Heparin) 5,000 units SC Q12 [facility] Last Admin: 08/08/17 21:56 Dose: Not Given Potassium Chloride 20 meq/ (Sodium Chloride) 1,010 mls @ 50 mls/hr IV .[id number] [facility] Last Admin: 08/08/17 12:39 Dose: 50 mls/hr - Labs Labs: 08/08/17 07:58 08/08/17 07:58 PT 13.2 SECONDS (9.7-12.2) H 08/07/17 21:20 INR 1.2 08/07/17 21:20 APTT 34 SECONDS (21-34) 08/07/17 21:20 - Additional Findings Additional findings: - Constitutional Appears: No Acute Distress - Head Exam Head Exam: ATRAUMATIC, NORMAL INSPECTION - Eye Exam Eye Exam: Normal appearance - ENT Exam ENT Exam: Mucous Membranes Dry - Respiratory Exam Respiratory Exam: Decreased Breath Sounds, Clear to Ausculation Bilateral, NORMAL BREATHING PATTERN. absent: Rales, Rhonchi, Wheezes, Respiratory Distress - Cardiovascular Exam Cardiovascular Exam: REGULAR RHYTHM, +S1, +S2 - GI/Abdominal Exam GI & Abdominal Exam: Soft, Normal Bowel Sounds. absent: Distended, Guarding, Rigid, Tenderness - Extremities Exam Extremities Exam: absent: Pedal Edema, Tenderness - Neurological Exam Neurological Exam: Awake - Psychiatric Exam Psychiatric exam: Flat Affect - Skin Skin Exam: Dry, Intact, Normal Color, Warm Assessment and Plan (1) Failure to thrive Status: Acute (2) Hypernatremia Status: Acute (3) Dementia Status: Acute (4) Vitamin D deficiency Status: Acute (5) Prophylactic measure Status: Acute - Assessment and Plan (Free Text) Plan: (1) Failure to thrive Assessment & Plan: Palliative Care consulted, help appreciated --> discussed placement at jail care facility; if patient is not accepted, discussed home care. Case management is working on placement. * Folate: 11.5 (08/08) * Iron 70 (08/08); 97 (08/09) * TIBC 348 (08/08); 362 (08/09) * % saturation 20 (08/08); 27 (08/09) * Ferritin 7.9 (08/09) * TSH 0.67 * Vit B12 286 * Vit D 25 OH 16.4 * (08/08) Started Ergocalciferol 50,000 Q7days for 8 weeks. Status: Acute (2) Hypernatremia Assessment & Plan: * Discontinued NS @ 100 cc/hr * Started 1/2 NS with 20mEq K @50mls/hr Status: Acute (3) Dementia Assessment & Plan: * History of dementia and traumatic brain injury * Head CT: no acute hemorrhage or mass effect (4) Vitamin D deficiency Assessment & Plan: * Vit D 25 OH 16.4 * (08/08) Started Ergocalciferol 50,000 Q7days for 8 weeks. (5) Prophylactic measure Assessment & Plan: DVT: Heparin 5000u SC Q12h Palliative Care consulted, help appreciated --> discussed placement at jail care facility; if patient is not accepted, discussed home care. Case management is working on placement. Speech therapy screen OT Status: Acute
[2017-08-09 08:12] LABS: EOS # 0.1 K/uL (0.0-0.7); LYMPH # 1.5 K/uL (1.0-4.3); MEAN PLATELET VOLUME 10.1 fL (7.2-11.7); MONO # 0.6 K/uL (0.0-0.8); WHITE BLOOD COUNT 6.5 K/uL (4.8-10.8)
[2017-08-09 08:23] LABS: BASO % 0.5 % (0.0-2.0); EOS % 1.5 % (0.0-4.0); LYMPH % 23.8 % (20.0-40.0); MEAN CELL VOLUME 71.3 fL (80.0-94.0); MEAN CORPUSCULAR HEMOGLOBIN 22.9 pg (27.0-31.0); MEAN CORPUSCULAR HGB CONC 32.1 g/dL (33.0-37.0); MONO % 9.9 % (0.0-10.0); NRBC % 0.3 % (0.0-2.0); RED CELL DISTRIBUTION WIDTH 25.4 % (11.5-14.5)
[2017-08-09 08:27] LABS: IRON 97 ug/dL (49-181)
[2017-08-09 08:28] LABS: ALB/GLOB RATIO 0.8 (1.0-2.1); ALKALINE PHOSPHATASE 70 U/L (38-126); ALT/SGPT 28 U/L (21-72); AST/SGOT 20 U/L (17-59); BILIRUBIN,TOTAL 0.8 mg/dL (0.2-1.3); BLOOD UREA NITROGEN 18 mg/dL (9-20); CALCIUM 8.1 mg/dl (8.6-10.4); CARBON DIOXIDE 28 mmol/L (22-30); CHLORIDE 111 mmol/L (98-107); GFR AFRICAN-AMERICAN > 60; GLUCOSE,RANDOM 69 mg/dL (75-110); POTASSIUM 3.9 mmol/L (3.6-5.2); SODIUM 142 mmol/L (132-148); TOTAL PROTEIN 7.7 g/dL (6.3-8.3)
[2017-08-09] MEDS: Potassium Chloride 20 MEQ in Sodium Chloride 0.45% 1,000 ML IV SCH (09:31)
--- NOTE | 2017-08-09 10:36 | CARD ---
APPROVED REPORT EKG Measurement Heart [id number] <Conclusion> Sinus rhythm with short FL Otherwise normal ECG
[2017-08-10 08:14] LABS: ALKALINE PHOSPHATASE 67 U/L (38-126); ALT/SGPT 27 U/L (21-72); AST/SGOT 19 U/L (17-59); BASO % 0.5 % (0.0-2.0); BLOOD UREA NITROGEN 19 mg/dL (9-20); CARBON DIOXIDE 26 mmol/L (22-30); CHLORIDE 107 mmol/L (98-107); EOS # 0.1 K/uL (0.0-0.7); EOS % 2.1 % (0.0-4.0); GFR AFRICAN-AMERICAN > 60; GLUCOSE,RANDOM 116 mg/dL (75-110); HEMATOCRIT 36.1 % (35.0-51.0); LYMPH # 1.5 K/uL (1.0-4.3); LYMPH % 22.9 % (20.0-40.0); MEAN CELL VOLUME 71.8 fL (80.0-94.0); MEAN CORPUSCULAR HEMOGLOBIN 22.7 pg (27.0-31.0); MEAN CORPUSCULAR HGB CONC 31.6 g/dL (33.0-37.0); MEAN PLATELET VOLUME 9.9 fL (7.2-11.7); MONO # 0.7 K/uL (0.0-0.8); MONO % 9.8 % (0.0-10.0); NRBC % 0.1 % (0.0-2.0); POTASSIUM 3.6 mmol/L (3.6-5.2); RED CELL DISTRIBUTION WIDTH 24.9 % (11.5-14.5); SODIUM 143 mmol/L (132-148); TOTAL PROTEIN 6.5 g/dL (6.3-8.3); WHITE BLOOD COUNT 6.7 K/uL (4.8-10.8)
[2017-08-10 08:25] LABS: ALB/GLOB RATIO 1.1 (1.0-2.1)
--- NOTE | 2017-08-10 09:46 | CP.PCM.PN ---
<Janna Washington - Last Filed: 08/10/17 15:27> Subjective - Date & Time of Evaluation Date of Evaluation: 08/10/17 Time of Evaluation: 09:45 - Subjective Subjective: Medicine Progress Note: Dr. Khan Patient was seen and examined at bedside; is present. Patient is in no acute distress. As per , patient is doing well, just finished eating and is relaxed. Patient is nonverbal; therefore review of systems unobtainable. Objective - Vital Signs/Intake and Output Vital Signs (last 24 hours): Temp Pulse Resp BP Pulse Ox 98.1 F 76 20 108/71 97 08/10/17 08:14 08/10/17 08:14 08/10/17 08:14 08/10/17 08:14 08/10/17 08:14 Intake and Output: 08/10/17 08/10/17 06:59 18:59 Intake Total 1130 Balance 1130 - Medications Medications: Current Medications Ergocalciferol (Drisdol 50,000 Intl Units Cap) 1 cap PO Q7D [facility] Stop: 09/26/17 11:15 Last Admin: 08/08/17 12:00 Dose: 1 cap Heparin Sodium (Porcine) (Heparin) 5,000 units SC Q12 [facility] Last Admin: 08/09/17 23:19 Dose: Not Given - Labs Labs: 08/10/17 07:54 08/10/17 07:54 PT 13.2 SECONDS (9.7-12.2) H 08/07/17 21:20 INR 1.2 08/07/17 21:20 APTT 34 SECONDS (21-34) 08/07/17 21:20 - Additional Findings Additional findings: - Constitutional Appears: No Acute Distress - Head Exam Head Exam: ATRAUMATIC, NORMAL INSPECTION - Eye Exam Eye Exam: Normal appearance - ENT Exam ENT Exam: Mucous Membranes Dry - Respiratory Exam Respiratory Exam: Decreased Breath Sounds, Clear to Ausculation Bilateral, NORMAL BREATHING PATTERN. absent: Rales, Rhonchi, Wheezes, Respiratory Distress - Cardiovascular Exam Cardiovascular Exam: REGULAR RHYTHM, +S1, +S2 - GI/Abdominal Exam GI & Abdominal Exam: Soft, Normal Bowel Sounds. absent: Distended, Guarding, Rigid, Tenderness - Extremities Exam Extremities Exam: absent: Pedal Edema, Tenderness - Neurological Exam Neurological Exam: Awake - Psychiatric Exam Psychiatric exam: Flat Affect - Skin Skin Exam: Dry, Intact, Normal Color, Warm Assessment and Plan (1) Failure to thrive Status: Acute (2) Hypernatremia Status: Acute (3) Dementia Status: Acute (4) Vitamin D deficiency Status: Acute (5) Prophylactic measure Status: Acute - Assessment and Plan (Free Text) Plan: (1) Failure to thrive Assessment & Plan: Palliative Care consulted, help appreciated --> discussed placement at intermediate project manager care facility; if patient is not accepted, discussed home care. Case management is working on placement. * Folate: 11.5 (08/08) * Iron 70 (08/08); 97 (08/09) * TIBC 348 (08/08); 362 (08/09) * % saturation 20 (08/08); 27 (08/09) * Ferritin 7.9 (08/09) * TSH 0.67 * Vit B12 286 * Vit D 25 OH 16.4 * (08/08) Started Ergocalciferol 50,000 Q7days for 8 weeks. Status: Acute (2) Hypernatremia Assessment & Plan: * Discontinued NS @ 100 cc/hr * Started 1/2 NS with 20mEq K @50mls/hr Status: Acute (3) Dementia Assessment & Plan: * History of dementia and traumatic brain injury * Head CT: no acute hemorrhage or mass effect (4) Vitamin D deficiency Assessment & Plan: * Vit D 25 OH 16.4 * (08/08) Started Ergocalciferol 50,000 Q7days for 8 weeks. (5) Prophylactic measure Assessment & Plan: DVT: Heparin 5000u SC Q12h Palliative Care consulted, help appreciated --> discussed placement at intermediate project manager care facility; if patient is not accepted, discussed home care. Case management is working on placement. Speech therapy screen OT Status: Acute <Cody Khan - Last Filed: 08/10/17 19:21> Objective - Vital Signs/Intake and Output Vital Signs (last 24 hours): Temp Pulse Resp BP Pulse Ox 98.1 F 71 20 120/75 98 08/10/17 16:54 08/10/17 16:54 08/10/17 16:54 08/10/17 16:54 08/10/17 16:54 Intake and Output: 08/10/17 08/11/17 18:59 06:59 Intake Total 500 Balance 500 - Medications Medications: Current Medications Ergocalciferol (Drisdol 50,000 Intl Units Cap) 1 cap PO Q7D [facility] Stop: 09/26/17 11:15 Last Admin: 08/08/17 12:00 Dose: 1 cap Heparin Sodium (Porcine) (Heparin) 5,000 units SC Q12 [facility] Last Admin: 08/10/17 09:47 Dose: Not Given - Labs Labs: 08/10/17 07:54 08/10/17 07:54 PT 13.2 SECONDS (9.7-12.2) H 08/07/17 21:20 INR 1.2 08/07/17 21:20 APTT 34 SECONDS (21-34) 08/07/17 21:20 Attending/Attestation - Attestation I have personally seen and examined this patient.: Yes I have fully participated in the care of the patient.: Yes I have reviewed all pertinent clinical information, including history, physical exam and plan: Yes Notes (Text): 08/10/17 19:17 Patient was seen and examined. Exam, Assessment and Plan were thoroughly gone over with the resident. Assessments: 1). Hx Dementia/Traumatic Brain Injury: CT Head does not show any acute hemorrhage/mass effect 2). Hx CKD: BUN/Cr and GFR are currently normal 3). Hx HTN ?: he is not on any home medication. Patient's who is a patient in the room with him stated that he does not have history of HTN. Blood Pressure is currently controlled. 4). Hypernatremia: treated with D5 1/2 NS with 20 mEQ KCl at 50 ml/hour. It has now resolved 5). Vitamin D Deficiency: treat with 50,000 Units PO once a week for 8 weeks on Wednesdays with last dose 09/26/17. 6). Abnormal RBC Indices: consider beginnings of Iron Deficiency. Ferritin low. Ferrous Sulfate 325 mg PO 1x/day. 7). Increased Frequency Urination upon admission: F/U UA. However this is going to be hard to obtain as patient does not speak nor state when he has to use the bathroom and just urinates. Patient was seen by Palliative Care Nurse Chinedu. does not feel like she can take care of patient but is concerned about the care that patient will receive at intermediate project manager care facility. I spoke with Nuclear Spectroscopist Alissa and Oracle Database Developer Madi 08/08/17 and they are working on placement for patient. Cody Khan D.O.
[2017-08-11 07:36] LABS: BASO % 0.4 % (0.0-2.0); EOS # 0.1 K/uL (0.0-0.7); EOS % 1.5 % (0.0-4.0); HEMATOCRIT 35.7 % (35.0-51.0); LYMPH # 1.3 K/uL (1.0-4.3); MEAN CORPUSCULAR HEMOGLOBIN 22.9 pg (27.0-31.0); MEAN CORPUSCULAR HGB CONC 32.7 g/dL (33.0-37.0); MEAN PLATELET VOLUME 10.8 fL (7.2-11.7); MONO # 0.6 K/uL (0.0-0.8); MONO % 10.3 % (0.0-10.0); NRBC % 0.4 % (0.0-2.0)
[2017-08-11 07:58] LABS: ALKALINE PHOSPHATASE 65 U/L (38-126); ALT/SGPT 31 U/L (21-72); AST/SGOT 22 U/L (17-59); BILIRUBIN,TOTAL 0.7 mg/dL (0.2-1.3); BLOOD UREA NITROGEN 17 mg/dL (9-20); CALCIUM 8.1 mg/dl (8.6-10.4); CARBON DIOXIDE 28 mmol/L (22-30); CHLORIDE 106 mmol/L (98-107); GFR AFRICAN-AMERICAN > 60; GLUCOSE,RANDOM 79 mg/dL (75-110); POTASSIUM 3.9 mmol/L (3.6-5.2); SODIUM 141 mmol/L (132-148); TOTAL PROTEIN 7.2 g/dL (6.3-8.3)
[2017-08-11 08:14] LABS: ALB/GLOB RATIO 0.8 (1.0-2.1)
--- NOTE | 2017-08-11 09:47 | CP.PCM.PN ---
Addendum entered and electronically signed by Echo Villasenor DO 08/11/17 09:51 : Error in assessment/plan: patient is no longer on IV fluids due to resolution of hyponatremia. Original Note: <Echo Villasenor - Last Filed: 08/11/17 09:44> Subjective - Date & Time of Evaluation Date of Evaluation: 08/11/17 Time of Evaluation: 09:44 - Subjective Subjective: Medicine Progress Note- Dr Khan's service Patient seen and examined. Patient appears agitated and pushes away examiner. Per patient's at bedside, there has been no clinical improvement in patient 's condition. Patient's tried to shave his face yesterday but the patient did not allow her to. is requesting that patient's toe nails be trimmed today. Per , no acute events overnight and patient slept without disturbances. Proper ROS could not be obtained due to mental status. Objective - Vital Signs/Intake and Output Vital Signs (last 24 hours): Temp Pulse Resp BP Pulse Ox 97.9 F 93 H 20 131/81 97 08/10/17 23:17 08/10/17 23:17 08/10/17 23:17 08/10/17 23:17 08/10/17 23:17 Intake and Output: 08/11/17 08/11/17 06:59 18:59 Intake Total 240 Balance 240 - Medications Medications: Current Medications Ergocalciferol (Drisdol 50,000 Intl Units Cap) 1 cap PO Q7D [facility] Stop: 09/26/17 11:15 Last Admin: 08/08/17 12:00 Dose: 1 cap Heparin Sodium (Porcine) (Heparin) 5,000 units SC Q12 [facility] Last Admin: 08/10/17 22:10 Dose: Not Given - Labs Labs: 08/11/17 07:05 08/11/17 07:05 PT 13.2 SECONDS (9.7-12.2) H 08/07/17 21:20 INR 1.2 08/07/17 21:20 APTT 34 SECONDS (21-34) 08/07/17 21:20 - Constitutional Appears: Non-toxic, No Acute Distress, Agitated - Head Exam Head Exam: ATRAUMATIC, NORMOCEPHALIC - Eye Exam Eye Exam: EOMI, Normal appearance - ENT Exam ENT Exam: Mucous Membranes Moist - Respiratory Exam Respiratory Exam: Clear to Ausculation Bilateral, NORMAL BREATHING PATTERN. absent: Rhonchi, Wheezes, Respiratory Distress - Cardiovascular Exam Cardiovascular Exam: REGULAR RHYTHM, +S1, +S2. absent: Irregular Rhythm - GI/Abdominal Exam GI & Abdominal Exam: Soft, Normal Bowel Sounds - Extremities Exam Extremities Exam: Normal Inspection. absent: Joint Swelling, Pedal Edema Additional comments: toe nails overgrown on both feet - Psychiatric Exam Psychiatric exam: Agitated - Skin Skin Exam: Dry, Intact, Warm Assessment and Plan - Assessment and Plan (Free Text) Assessment: (1) Failure to thrive Assessment & Plan: Secondary to rapid progressive dementia. No acute change in patient's condition , continue current management. Palliative Care consulted, help appreciated --> discussed placement at care home care facility; if patient is not accepted, discussed home care. Case management is working on placement. * Folate: 11.5 (08/08) * Iron 70 (08/08); 97 (08/09) * TIBC 348 (08/08); 362 (08/09) * % saturation 20 (08/08); 27 (08/09) * Ferritin 7.9 (08/09) * TSH 0.67 * Vit B12 286 (2) Hypernatremia Assessment & Plan: * Resolved * Discontinued NS @ 100 cc/hr * Started 1/2 NS with 20mEq K @50mls/hr (3) Dementia Assessment & Plan: * History of dementia and traumatic brain injury * Head CT: no acute hemorrhage or mass effect (4) Vitamin D deficiency Assessment & Plan: * Vit D 25 OH 16.4 * (08/08) Started Ergocalciferol 50,000 Q7days for 8 weeks. 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 Case management is working on placement. Speech therapy screen OT DNR/DNI code status <Cody Khan - Last Filed: 08/11/17 18:48> Objective - Vital Signs/Intake and Output Vital Signs (last 24 hours): Temp Pulse Resp BP Pulse Ox 97.9 F 93 H 20 131/81 97 08/10/17 23:17 08/10/17 23:17 08/10/17 23:17 08/10/17 23:17 08/10/17 23:17 Intake and Output: 08/11/17 08/11/17 06:59 18:59 Intake Total 240 500 Balance 240 500 - Medications Medications: Current Medications Ergocalciferol (Drisdol 50,000 Intl Units Cap) 1 cap PO Q7D [facility] Stop: 09/26/17 11:15 Last Admin: 08/08/17 12:00 Dose: 1 cap Ferrous Sulfate (Feosol) 325 mg PO DAILY [facility] Last Admin: 08/11/17 10:34 Dose: 325 mg Heparin Sodium (Porcine) (Heparin) 5,000 units SC Q12 [facility] Last Admin: 08/11/17 10:33 Dose: 5,000 units - Labs Labs: 08/11/17 07:05 08/11/17 07:05 PT 13.2 SECONDS (9.7-12.2) H 08/07/17 21:20 INR 1.2 08/07/17 21:20 APTT 34 SECONDS (21-34) 08/07/17 21:20 Attending/Attestation - Attestation I have personally seen and examined this patient.: Yes I have fully participated in the care of the patient.: Yes I have reviewed all pertinent clinical information, including history, physical exam and plan: Yes Notes (Text): 08/11/17 18:47 Patient was seen and examined at 10:20 AM 08/11/17 371 B Exam, Assessment and Plan were thoroughly gone over with the resident. Assessments: 1). Hx Dementia/Traumatic Brain Injury: CT Head does not show any acute hemorrhage/mass effect 2). Hx CKD: BUN/Cr and GFR are currently normal 3). Hx HTN ?: he is not on any home medication. Patient's who is a patient in the room with him stated that he does not have history of HTN. Blood Pressure is currently controlled. 4). Hypernatremia: treated with D5 1/2 NS with 20 mEQ KCl at 50 ml/hour. It has now resolved and the D5 1/2 NS was discontinued. 5). Vitamin D Deficiency: treat with 50,000 Units PO once a week for 8 weeks on Wednesdays with last dose 09/26/17. 6). Abnormal RBC Indices: consider beginnings of Iron Deficiency. Ferritin low. Ferrous Sulfate 325 mg PO 1x/day. 7). Increased Frequency Urination upon admission: F/U UA. However this is going to be hard to obtain as patient does not speak nor state when he has to use the bathroom and just urinates. Patient was seen by Palliative Care Nurse Chinedu. (who is also a patient in the same room as this patient, and is the primary care provider at home for this patient) does not feel like she can take care of patient but is concerned about the care that patient will receive at care home care facility. I spoke with Pulp House Supervisor Alissa and Cycle Specialist Madi 08/08/17 and they are working on placement for patient. Cody Khan D.O.
--- NOTE | 2017-08-12 07:24 | CP.PCM.PN ---
<DailyinezakilaEcho - Last Filed: 08/12/17 11:20> Subjective - Date & Time of Evaluation Date of Evaluation: 08/12/17 Time of Evaluation: 07:21 - Subjective Subjective: Medicine Progress Note Patient seen and examined. Per patient's , there has been no acute changes in clinical condition. No acute events overnight. ROS could not be obtained from patient. Objective - Vital Signs/Intake and Output Vital Signs (last 24 hours): Temp Pulse Resp BP Pulse Ox 97.9 F 93 H 20 131/81 97 08/10/17 23:17 08/10/17 23:17 08/10/17 23:17 08/10/17 23:17 08/10/17 23:17 Intake and Output: 08/12/17 08/12/17 06:59 18:59 Intake Total 120 Balance 120 - Medications Medications: Current Medications Ergocalciferol (Drisdol 50,000 Intl Units Cap) 1 cap PO Q7D [facility] Stop: 09/26/17 11:15 Last Admin: 08/08/17 12:00 Dose: 1 cap Ferrous Sulfate (Feosol) 325 mg PO DAILY [facility] Last Admin: 08/11/17 10:34 Dose: 325 mg Heparin Sodium (Porcine) (Heparin) 5,000 units SC Q12 [facility] Last Admin: 08/11/17 21:56 Dose: 5,000 units - Labs Labs: 08/11/17 07:05 08/11/17 07:05 PT 13.2 SECONDS (9.7-12.2) H 08/07/17 21:20 INR 1.2 08/07/17 21:20 APTT 34 SECONDS (21-34) 08/07/17 21:20 - Constitutional Appears: Non-toxic, No Acute Distress - Head Exam Head Exam: ATRAUMATIC, NORMOCEPHALIC - Eye Exam Eye Exam: EOMI, Normal appearance - ENT Exam ENT Exam: Mucous Membranes Moist - Respiratory Exam Respiratory Exam: Clear to Ausculation Bilateral, NORMAL BREATHING PATTERN - Cardiovascular Exam Cardiovascular Exam: REGULAR RHYTHM, +S1, +S2 - GI/Abdominal Exam GI & Abdominal Exam: Soft. absent: Distended, Guarding - Extremities Exam Extremities Exam: Normal Inspection. absent: Pedal Edema - Neurological Exam Neurological Exam: Alert, Awake - Psychiatric Exam Psychiatric exam: Normal Affect, Normal Mood - Skin Skin Exam: Dry, Intact, Normal Color, Warm Assessment and Plan - Assessment and Plan (Free Text) Assessment: (1) Failure to thrive Assessment & Plan: Secondary to rapid progressive dementia. No acute change in patient's condition , continue current management. 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 Case management is working on placement. 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 (5) Prophylactic measure Assessment & Plan: DVT: Heparin 5000u SC Q12h [facility] Palliative Care consulted, help appreciated --> discussed placement at [facility]; if patient is not accepted, discussed home care. Case management is working on placement. Speech therapy screen OT DNR/DNI code status <Cody Khan - Last Filed: 08/12/17 12:19> Objective - Vital Signs/Intake and Output Vital Signs (last 24 hours): Temp Pulse Resp BP Pulse Ox 97.9 F 93 H 20 131/81 97 08/10/17 23:17 08/10/17 23:17 08/10/17 23:17 08/10/17 23:17 08/10/17 23:17 Intake and Output: 08/12/17 08/12/17 06:59 18:59 Intake Total 120 Balance 120 - Medications Medications: Current Medications Ergocalciferol (Drisdol 50,000 Intl Units Cap) 1 cap PO Q7D [facility] Stop: 09/26/17 11:15 Last Admin: 08/08/17 12:00 Dose: 1 cap Ferrous Sulfate (Feosol) 325 mg PO DAILY [facility] Last Admin: 08/12/17 10:55 Dose: 325 mg Heparin Sodium (Porcine) (Heparin) 5,000 units SC Q12 [facility] Last Admin: 08/12/17 10:55 Dose: 5,000 units - Labs Labs: 08/11/17 07:05 08/11/17 07:05 PT 13.2 SECONDS (9.7-12.2) H 08/07/17 21:20 INR 1.2 08/07/17 21:20 APTT 34 SECONDS (21-34) 08/07/17 21:20 Attending/Attestation - Attestation I have personally seen and examined this patient.: Yes I have fully participated in the care of the patient.: Yes I have reviewed all pertinent clinical information, including history, physical exam and plan: Yes Notes (Text): 08/12/17 12:16 Patient was seen and examined at 12:15 AM 08/12/17 371 B Exam, Assessment and Plan were thoroughly gone over with the resident. Spoke with his who is also a patient in the room with him and she stated that he is at his baseline. He is eating without difficulty and moved his bowels (please keep in mind that he may not have a bowel movement for 2 to 3 days and this is normal for him) and urinating without difficulty Assessments: 1). Hx Dementia/Traumatic Brain Injury: CT Head does not show any acute hemorrhage/mass effect 2). Hx CKD: BUN/Cr and GFR are currently normal 3). Hx HTN ?: he is not on any home medication. Patient's who is a patient in the room with him stated that he does not have history of HTN. Blood Pressure is currently controlled. 4). Hx Hypernatremia: treated with D5 1/2 NS with 20 mEQ KCl at 50 ml/hour. It has now resolved and the D5 1/2 NS was discontinued. 5). Vitamin D Deficiency: treat with 50,000 Units PO once a week for 8 weeks on Wednesdays with last dose 09/26/17. 6). Abnormal RBC Indices: consider beginnings of Iron Deficiency. Ferritin low. Ferrous Sulfate 325 mg PO 1x/day. 7). Increased Frequency Urination upon admission: F/U UA. However this is going to be hard to obtain as patient does not speak nor state when he has to use the bathroom and just urinates. Medicine Team: labs should be done on Mondays and and this has been ordered for this coming week. Patient was seen by Palliative Care Nurse Chinedu. (who is also a patient in the same room as this patient, and is the primary care provider at home for this patient) does not feel like she can take care of patient but is concerned about the care that patient will receive at jail care facility. I spoke with Hosiery Bagger Alissa and Mutual Fund Sales Agent Madi 08/08/17 and they are working on placement for patient. Cody Khan D.O.
--- NOTE | 2017-08-12 18:40 | CP.PCM.CON ---
History of Present Illness - History of Present Illness History of Present Illness: Podiatry Consult Note - Dr. Nugent 61 year old male patient PMHx TBI and dementia seen and evaluated at bedside for painful elongated nails. HPI unable to be obtained per patient due to altered mental status. ROS unable to be obtained. Review of Systems - Review of Systems All systems: reviewed and no additional remarkable complaints except (as per HPI ) Past Patient History - Past Medical History & Family History Past Medical History?: Yes - Past Social History Smoking Status: Former Smoker - CARDIAC Hx Hypertension: Yes - PULMONARY Hx Respiratory Disorders: No - NEUROLOGICAL Hx Neurological Disorder: Yes HX Cerebrovascular Accident: Yes - HEENT Hx HEENT Problems: No - RENAL Hx Chronic Kidney Disease: Yes - ENDOCRINE/METABOLIC Hx Endocrine Disorders: No - HEMATOLOGICAL/ONCOLOGICAL Hx Blood Disorders: No - INTEGUMENTARY Hx Dermatological Problems: No - MUSCULOSKELETAL/RHEUMATOLOGICAL Hx Musculoskeletal Disorders: Yes Hx Falls: Yes - GASTROINTESTINAL Hx Gastrointestinal Disorders: Yes Hx Constipation: Yes - GENITOURINARY/GYNECOLOGICAL Hx Genitourinary Disorders: Yes Hx Incontinence: Yes - PSYCHIATRIC Hx Substance Use: No - SURGICAL HISTORY Hx Surgeries: Yes Hx Herniorrhaphy: Yes - ANESTHESIA Hx Anesthesia: Yes Hx Anesthesia Reactions: No Hx Malignant Hyperthermia: No Meds Allergies/Adverse Reactions: Allergies Allergy/AdvReac Type Severity Reaction Status Date / Time No Known Allergies Allergy Verified 08/07/17 20:25 - Medications Medications: Current Medications Ergocalciferol (Drisdol 50,000 Intl Units Cap) 1 cap PO Q7D [facility] Stop: 09/26/17 11:15 Last Admin: 08/08/17 12:00 Dose: 1 cap Ferrous Sulfate (Feosol) 325 mg PO DAILY [facility] Last Admin: 08/12/17 10:55 Dose: 325 mg Heparin Sodium (Porcine) (Heparin) 5,000 units SC Q12 [facility] Last Admin: 08/12/17 10:55 Dose: 5,000 units Physical Exam - Constitutional Appears: Non-toxic, Unkempt - Extremities Exam Additional comments: VASC: DP and PT pulses nonpalpable. Temperature gradient cool to cool. No edema noted. NEURO: Unable to assess DERM: Nails 1-5 b/l are thickened, elongated, and dystrophic with the presence of subungual debris. Webspaces 1-4 b/l are clean/dry/intact with no maceration noted. No open lesions noted. ORTHO: 1st MPJ, STJ, ankle joint ROM full with no pain noted. - Neurological Exam Additional comments: Nonverbal Results - Vital Signs Recent Vital Signs: Last Vital Signs Temp 97.7 F 08/12/17 16:00 Pulse 70 08/12/17 16:00 Resp 20 08/12/17 16:00 BP 149/68 08/12/17 16:00 Pulse Ox 100 08/12/17 16:00 - Labs Result Diagrams: 08/11/17 07:05 08/11/17 07:05 Assessment & Plan - Assessment and Plan (Free Text) Assessment: 61 year old male patient PMHx TBI and dementia with mycotic nails Plan: Patient seen and evaluated Discussed with attending, Dr. Nugent Patient afebrile Nails 1-5 b/l debrided in thickness and length without incident Stable per podiatry standpoint Thank you for the consult, please reconsult podiatry as needed
--- NOTE | 2017-08-13 06:59 | CP.PCM.PN ---
<Janna Washington - Last Filed: 08/13/17 11:26> Subjective - Date & Time of Evaluation Date of Evaluation: 08/13/17 Time of Evaluation: 06:59 - Subjective Subjective: Medicine Progress Note: Dr. Barraza Patient was seen and examined at bedside; is present. Patient is in no acute distress. As per , patient is doing the same. Patient is nonverbal; therefore review of systems unobtainable. Objective - Vital Signs/Intake and Output Vital Signs (last 24 hours): Temp Pulse Resp BP Pulse Ox 97.7 F 82 20 113/71 97 08/12/17 16:00 08/13/17 00:00 08/13/17 00:00 08/13/17 00:00 08/13/17 00:00 Intake and Output: 08/12/17 08/13/17 18:59 06:59 Intake Total 300 Balance 300 - Medications Medications: Current Medications Ergocalciferol (Drisdol 50,000 Intl Units Cap) 1 cap PO Q7D [facility] Stop: 09/26/17 11:15 Last Admin: 08/08/17 12:00 Dose: 1 cap Ferrous Sulfate (Feosol) 325 mg PO DAILY [facility] Last Admin: 08/12/17 10:55 Dose: 325 mg Heparin Sodium (Porcine) (Heparin) 5,000 units SC Q12 [facility] Last Admin: 08/12/17 21:32 Dose: 5,000 units - Labs Labs: 08/11/17 07:05 08/11/17 07:05 PT 13.2 SECONDS (9.7-12.2) H 08/07/17 21:20 INR 1.2 08/07/17 21:20 APTT 34 SECONDS (21-34) 08/07/17 21:20 - Additional Findings Additional findings: - Constitutional Appears: No Acute Distress - Head Exam Head Exam: ATRAUMATIC, NORMAL INSPECTION - Eye Exam Eye Exam: Normal appearance - ENT Exam ENT Exam: Mucous Membranes Dry - Respiratory Exam Respiratory Exam: Decreased Breath Sounds, Clear to Ausculation Bilateral, NORMAL BREATHING PATTERN. absent: Rales, Rhonchi, Wheezes, Respiratory Distress - Cardiovascular Exam Cardiovascular Exam: REGULAR RHYTHM, +S1, +S2 - GI/Abdominal Exam GI & Abdominal Exam: Soft, Normal Bowel Sounds. absent: Distended, Guarding, Rigid, Tenderness - Extremities Exam Extremities Exam: absent: Pedal Edema, Tenderness - Neurological Exam Neurological Exam: Awake - Psychiatric Exam Psychiatric exam: Flat Affect - Skin Skin Exam: Dry, Intact, Normal Color, Warm Assessment and Plan (1) Failure to thrive Status: Chronic (2) Hypernatremia Status: Resolved (3) Dementia Status: Chronic (4) Vitamin D deficiency Status: Acute (5) Abnormal RBC indices Status: Acute (6) Prophylactic measure Status: Acute - Assessment and Plan (Free Text) Plan: (1) Failure to thrive Assessment & Plan: Palliative Care consulted, help appreciated --> discussed placement at terminal supervisor care facility; if patient is not accepted, discussed home care. Case management is working on placement. * Folate: 11.5 (08/08) * Iron 70 (08/08); 97 (08/09) * TIBC 348 (08/08); 362 (08/09) * % saturation 20 (08/08); 27 (08/09) * Ferritin 7.9 (08/09) * TSH 0.67 * Vit B12 286 * Vit D 25 OH 16.4 * (08/08) Started Ergocalciferol 50,000 Q7days for 8 weeks. (2) Hypernatremia Assessment & Plan: * Resolved * Discontinued NS @ 100 cc/hr, 1/2 NS with 20mEq K @50mls/hr (3) Dementia Assessment & Plan: * History of dementia and traumatic brain injury * Head CT: no acute hemorrhage or mass effect (4) Vitamin D deficiency Assessment & Plan: * Vit D 25 OH 16.4 * (08/08) Started Ergocalciferol 50,000 Q7days for 8 weeks. (5) Abnormal RBC indices Assessment & Plan: * Ferritin is low * Continue Feosol 325mg PO daily (6) Prophylactic measure Assessment & Plan: DVT: Heparin 5000u SC Q12h Palliative Care consulted, help appreciated --> [facility]; if patient is not accepted, discussed home care. Case management is working on placement. Speech therapy screen OT <Kimi Barraza V - Last Filed: 08/13/17 16:38> Objective - Vital Signs/Intake and Output Vital Signs (last 24 hours): Temp Pulse Resp BP Pulse Ox 98.3 F 66 20 119/75 100 08/13/17 08:16 08/13/17 08:16 08/13/17 08:16 08/13/17 08:16 08/13/17 08:16 - Medications Medications: Current Medications Ergocalciferol (Drisdol 50,000 Intl Units Cap) 1 cap PO Q7D [facility] Stop: 09/26/17 11:15 Last Admin: 08/08/17 12:00 Dose: 1 cap Ferrous Sulfate (Feosol) 325 mg PO DAILY [facility] Last Admin: 08/13/17 09:27 Dose: 325 mg Heparin Sodium (Porcine) (Heparin) 5,000 units SC Q12 [facility] Last Admin: 08/13/17 09:27 Dose: 5,000 units - Labs Labs: 08/13/17 07:46 08/13/17 07:46 PT 13.2 SECONDS (9.7-12.2) H 08/07/17 21:20 INR 1.2 08/07/17 21:20 APTT 34 SECONDS (21-34) 08/07/17 21:20 Attending/Attestation - Attestation I have personally seen and examined this patient.: Yes I have fully participated in the care of the patient.: Yes I have reviewed all pertinent clinical information, including history, physical exam and plan: Yes Notes (Text): Patient seen, examined, and case discussed with day-time resident. Patient seen by the first time by myself with his who is also present at bedside. Patient with known history of traumatic brain injury secondary to head bleed sustained by fall many years ago per . Patient is ambulatory, grunts, but does not appear agitated. 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 Patient noted to be nonverbal about two years ago. 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 They do not have any children. Assessment/Plan 1). Hx Dementia/Traumatic Brain Injury * CT Head does not show any acute hemorrhage/mass effect 2). Hx CKD * BUN/Cr and GFR are currently normal 3). Hx HTN * Patient's who is a patient in the room with him stated that he does not have history of HTN. Blood Pressure is currently controlled. 4). Hx Hypernatremia * treated with D5 1/2 NS with 20 mEQ KCl at 50 ml/hour. It has now resolved and the D5 1/2 NS was discontinued. 5). Vitamin D Deficiency * Started on Vitamin D 50,000 Units PO once a week for 8 weeks on Wednesdays with last dose 09/26/17. 6). Abnormal RBC Indices * Low MCV, Iron: 97, TIBC: 362, 27 iron saturation, 7.9 ferritin, elevated RDW * Ferrous Sulfate 325 mg PO 1x/day. 7). Increased Frequency * F/U UA. However this is going to be hard to obtain as patient does not speak nor state when he has to use the bathroom and just urinates. 8) Mycotic Nails * Podiatry (Dr. Nugent) on board-->help appreciated * Nails debrided on 08/12 * Stable from podiatry standpoint, signed off 08/12 8) Prophylactic measure * Patient is ambulatory, needs assistance and observation * Social work and palliative care on board-->attempts to procure placement rehab vs home care to assist * Heparin 5000 units [id number] for dvt ppx
[2017-08-13 07:59] LABS: HEMATOCRIT 35.9 % (35.0-51.0); MEAN CELL VOLUME 71.3 fL (80.0-94.0); MEAN CORPUSCULAR HEMOGLOBIN 23.1 pg (27.0-31.0); MEAN CORPUSCULAR HGB CONC 32.4 g/dL (33.0-37.0); MEAN PLATELET VOLUME 9.6 fL (7.2-11.7); RED CELL DISTRIBUTION WIDTH 25.1 % (11.5-14.5)
[2017-08-13 08:44] LABS: BLOOD UREA NITROGEN 16 mg/dL (9-20); CALCIUM 8.1 mg/dl (8.6-10.4); CARBON DIOXIDE 27 mmol/L (22-30); CHLORIDE 107 mmol/L (98-107); GFR AFRICAN-AMERICAN > 60; GLUCOSE,RANDOM 84 mg/dL (75-110); SODIUM 141 mmol/L (132-148)
--- NOTE | 2017-08-14 06:54 | CP.PCM.PN ---
<Janna Washington - Last Filed: 08/14/17 17:41> Subjective - Date & Time of Evaluation Date of Evaluation: 08/14/17 Time of Evaluation: 06:54 - Subjective Subjective: Medicine Progress Note: Dr. Barraza Patient was seen and examined at bedside in the morning; is present. Patient is in no acute distress, laying comfortably in bed. As per , patient is doing the same. Patient is nonverbal; therefore review of systems unobtainable. Patient was seen again in the afternoon- as per , patient has been in bed all day and less mobile than usual. Objective - Vital Signs/Intake and Output Vital Signs (last 24 hours): Temp Pulse Resp BP Pulse Ox 98.5 F 84 20 120/67 98 08/13/17 18:44 08/13/17 18:44 08/13/17 18:44 08/13/17 18:44 08/13/17 18:44 Intake and Output: 08/13/17 08/14/17 18:59 06:59 Intake Total 250 Output Total 1 Balance 249 - Medications Medications: Current Medications Ergocalciferol (Drisdol 50,000 Intl Units Cap) 1 cap PO Q7D [facility] Stop: 09/26/17 11:15 Last Admin: 08/08/17 12:00 Dose: 1 cap Ferrous Sulfate (Feosol) 325 mg PO DAILY [facility] Last Admin: 08/13/17 09:27 Dose: 325 mg Heparin Sodium (Porcine) (Heparin) 5,000 units SC Q12 [facility] Last Admin: 08/13/17 21:34 Dose: 5,000 units - Labs Labs: 08/13/17 07:46 08/13/17 07:46 PT 13.2 SECONDS (9.7-12.2) H 08/07/17 21:20 INR 1.2 08/07/17 21:20 APTT 34 SECONDS (21-34) 08/07/17 21:20 - Additional Findings Additional findings: - Constitutional Appears: No Acute Distress - Head Exam Head Exam: ATRAUMATIC, NORMAL INSPECTION - Eye Exam Eye Exam: Normal appearance - ENT Exam ENT Exam: Mucous Membranes Dry - Respiratory Exam Respiratory Exam: Decreased Breath Sounds, Clear to Ausculation Bilateral, NORMAL BREATHING PATTERN. absent: Rales, Rhonchi, Wheezes, Respiratory Distress - Cardiovascular Exam Cardiovascular Exam: REGULAR RHYTHM, +S1, +S2 - GI/Abdominal Exam GI & Abdominal Exam: Soft, Normal Bowel Sounds. absent: Distended, Guarding, Rigid, Tenderness - Extremities Exam Extremities Exam: absent: Pedal Edema, Tenderness - Neurological Exam Neurological Exam: Awake - Psychiatric Exam Psychiatric exam: Flat Affect - Skin Skin Exam: Dry, Intact, Normal Color, Warm Assessment and Plan (1) Failure to thrive Status: Chronic (2) Hypernatremia Status: Resolved (3) Dementia Status: Chronic (4) Vitamin D deficiency Status: Acute (5) Abnormal RBC indices Status: Acute (6) Prophylactic measure Status: Acute - Assessment and Plan (Free Text) Plan: (1) Failure to thrive Assessment & Plan: Palliative Care consulted, help appreciated. Case management is working on placement. * Folate: 11.5 (08/08) * Iron 70 (08/08); 97 (08/09) * TIBC 348 (08/08); 362 (08/09) * % saturation 20 (08/08); 27 (08/09) * Ferritin 7.9 (08/09) * TSH 0.67 * Vit B12 286 * Vit D 25 OH 16.4 * (08/08) Started Ergocalciferol 50,000 Q7days for 8 weeks. (2) Hypernatremia Assessment & Plan: * Resolved * Discontinued NS @ 100 cc/hr, 1/2 NS with 20mEq K @50mls/hr (3) Dementia Assessment & Plan: * History of dementia and traumatic brain injury * Head CT: no acute hemorrhage or mass effect (4) Vitamin D deficiency Assessment & Plan: * Vit D 25 OH 16.4 * (08/08) Started Ergocalciferol 50,000 Q7days for 8 weeks. (5) Abnormal RBC indices Assessment & Plan: * Ferritin is low * Continue Feosol 325mg PO daily (6) Prophylactic measure Assessment & Plan: DVT: Heparin 5000u SC Q12h Palliative Care consulted, help appreciated Case management is working on placement. Patient's does not want patient to go to facility that keeps patient sedated. Discussed with case management- will try to get placement in locked-in facility. Speech therapy screen OT <Kimi Barraza V - Last Filed: 08/14/17 21:34> Objective - Vital Signs/Intake and Output Vital Signs (last 24 hours): Temp Pulse Resp BP Pulse Ox 98.3 F 76 20 110/77 99 08/14/17 17:49 08/14/17 15:00 08/14/17 15:00 08/14/17 15:00 08/14/17 15:00 - Medications Medications: Current Medications Ergocalciferol (Drisdol 50,000 Intl Units Cap) 1 cap PO Q7D [facility] Stop: 09/26/17 11:15 Last Admin: 08/08/17 12:00 Dose: 1 cap Ferrous Sulfate (Feosol) 325 mg PO DAILY [facility] Last Admin: 08/14/17 09:51 Dose: 325 mg - Labs Labs: 08/13/17 07:46 08/13/17 07:46 PT 13.2 SECONDS (9.7-12.2) H 08/07/17 21:20 INR 1.2 08/07/17 21:20 APTT 34 SECONDS (21-34) 08/07/17 21:20 Attending/Attestation - Attestation I have personally seen and examined this patient.: Yes I have fully participated in the care of the patient.: Yes I have reviewed all pertinent clinical information, including history, physical exam and plan: Yes Notes (Text): Patient seen, examined, and case discussed with day-time resident. Patient seen by the second time with his who is also present at bedside in afternoon. Patient with known history of traumatic brain injury secondary to head bleed sustained by fall many years ago per . Patient is ambulatory, grunts, but does not appear agitated. 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 Patient noted to be nonverbal about two years ago. 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 They do not have any children. Per , today, patient did not appear like himself. Patient usually likes to be very ambulatory and active but today patient wanted lie in bed and not walk. reports concerns that this is a change. Patient has been in the hospital for about a week. Patient had Tmax: 100F. Ordered for lab work, UA, urine culture, and blood cultures. does not want any sedative mediations for her . Case and social work continuing to find placement for discharge planning. Assessment/Plan 1). Hx Dementia/Traumatic Brain Injury * CT Head does not show any acute hemorrhage/mass effect 2). Hx CKD * BUN/Cr and GFR are currently normal 3). Hx HTN * Patient's who is a patient in the room with him stated that he does not have history of HTN. Blood Pressure is currently controlled. 4). Hx Hypernatremia * treated with D5 1/2 NS with 20 mEQ KCl at 50 ml/hour. It has now resolved and the D5 1/2 NS was discontinued. 5). Vitamin D Deficiency * Started on Vitamin D 50,000 Units PO once a week for 8 weeks on Wednesdays with last dose 09/26/17. 6). Abnormal RBC Indices * Low MCV, Iron: 97, TIBC: 362, 27 iron saturation, 7.9 ferritin, elevated RDW * Ferrous Sulfate 325 mg PO 1x/day. 7). Increased Frequency * F/U UA. However this is going to be hard to obtain as patient does not speak nor state when he has to use the bathroom and just urinates. 8) Mycotic Nails * Podiatry (Dr. Nugent) on board-->help appreciated * Nails debrided on 08/12 * Stable from podiatry standpoint, signed off 08/12 9) Fever * Order for routine labs, UA, urine culture, and blood cultures * Monitor Temperature 10) Prophylactic measure * Patient is ambulatory, needs assistance and observation * Social work and palliative care on board-->attempts to procure placement rehab vs home care to assist -->ongoing discussion; patient is pending placement. * Heparin 5000 units [id number] for dvt ppx
--- NOTE | 2017-08-15 06:55 | CP.PCM.PN ---
<Janna Washington - Last Filed: 08/15/17 11:03> Subjective - Date & Time of Evaluation Date of Evaluation: 08/15/17 Time of Evaluation: 06:55 - Subjective Subjective: Medicine Progress Note for Dr. Barraza Patient was seen and examined at bedside in no acute distress. Patient had fever of 100F yesterday, but repeat vitals showed he was afebrile. Patient was afebrile overnight and no other acute events occurred. 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 As per , the patient has decreased appetite and decreased energy yesterday; however, while examining the patient today, energy improved and patient was walking around room and hallways. Objective - Vital Signs/Intake and Output Vital Signs (last 24 hours): Temp Pulse Resp BP Pulse Ox 98.9 F 76 20 110/77 99 08/14/17 22:24 08/14/17 15:00 08/14/17 15:00 08/14/17 15:00 08/14/17 15:00 Intake and Output: 08/14/17 08/15/17 18:59 06:59 Intake Total 250 Output Total 0 Balance 250 - Medications Medications: Current Medications Ergocalciferol (Drisdol 50,000 Intl Units Cap) 1 cap PO Q7D [facility] Stop: 09/26/17 11:15 Last Admin: 08/08/17 12:00 Dose: 1 cap Ferrous Sulfate (Feosol) 325 mg PO DAILY [facility] Last Admin: 08/14/17 09:51 Dose: 325 mg - Labs Labs: 08/13/17 07:46 08/13/17 07:46 PT 13.2 SECONDS (9.7-12.2) H 08/07/17 21:20 INR 1.2 08/07/17 21:20 APTT 34 SECONDS (21-34) 08/07/17 21:20 - Additional Findings Additional findings: - Constitutional Appears: No Acute Distress - Head Exam Head Exam: ATRAUMATIC, NORMAL INSPECTION - Eye Exam Eye Exam: Normal appearance - ENT Exam ENT Exam: Mucous Membranes Dry - Respiratory Exam Respiratory Exam: Decreased Breath Sounds, Clear to Ausculation Bilateral, NORMAL BREATHING PATTERN. absent: Rales, Rhonchi, Wheezes, Respiratory Distress - Cardiovascular Exam Cardiovascular Exam: REGULAR RHYTHM, +S1, +S2 - GI/Abdominal Exam GI & Abdominal Exam: Soft, Normal Bowel Sounds. absent: Distended, Guarding, Rigid, Tenderness - Extremities Exam Extremities Exam: absent: Pedal Edema, Tenderness - Neurological Exam Neurological Exam: Awake - Psychiatric Exam Psychiatric exam: Flat Affect - Skin Skin Exam: Dry, Intact, Normal Color, Warm Assessment and Plan (1) Failure to thrive Status: Chronic (2) Hypernatremia Status: Resolved (3) Dementia Status: Chronic (4) Vitamin D deficiency Status: Acute (5) Abnormal RBC indices Status: Acute (6) Prophylactic measure Status: Acute - Assessment and Plan (Free Text) Plan: (1) Failure to thrive Assessment & Plan: Palliative Care consulted, help appreciated. Case management is working on placement. * Folate: 11.5 (08/08) * Iron 70 (08/08); 97 (08/09) * TIBC 348 (08/08); 362 (08/09) * % saturation 20 (08/08); 27 (08/09) * Ferritin 7.9 (08/09) * TSH 0.67 * Vit B12 286 * Vit D 25 OH 16.4 * (08/08) Started Ergocalciferol 50,000 Q7days for 8 weeks. (2) Hypernatremia Assessment & Plan: * Resolved * Discontinued NS @ 100 cc/hr, 1/2 NS with 20mEq K @50mls/hr (3) Dementia Assessment & Plan: * History of dementia and traumatic brain injury * Head CT: no acute hemorrhage or mass effect * Neurology consulted, Dr. Cleaning, help appreciated (4) Vitamin D deficiency Assessment & Plan: * Vit D 25 OH 16.4 * (08/08) Started Ergocalciferol 50,000 Q7days for 8 weeks. (5) Abnormal RBC indices Assessment & Plan: * Ferritin is low * Continue Feosol 325mg PO daily (6) Fever Assessment & Plan: * Resolved * Fever 100F on 08/14 * Tylenol ordered, but not given as fever resolved * CXR: f/u report * Blood cx: f/u results * Urine cx: f/u results * UA: f/u results (7) Prophylactic measure Assessment & Plan: DVT: Heparin 5000u SC Q12h Palliative Care consulted, help appreciated Case management is working on placement. Patient's does not want patient to go to facility that keeps patient sedated. Discussed with case management- will try to get placement in locked-in facility. Speech therapy screen OT Disposition: Case management is working on placement. Patient's does not want patient to go to facility that keeps patient sedated. Discussed with case management- will try to get placement in locked-in facility. <Kimi Barraza V - Last Filed: 08/16/17 05:46> Objective - Vital Signs/Intake and Output Vital Signs (last 24 hours): Temp Pulse Resp BP Pulse Ox 98.1 F 78 20 112/78 98 08/16/17 00:08 08/16/17 00:08 08/16/17 00:08 08/16/17 00:08 08/16/17 00:08 Intake and Output: 08/15/17 08/16/17 18:59 06:59 Intake Total 400 300 Output Total 1 Balance 399 300 - Medications Medications: Current Medications Amantadine HCl (Amantadine 100 Mg Cap) 100 mg PO DAILY [facility] Last Admin: 08/15/17 18:24 Dose: 100 mg Divalproex Sodium (Depakote Er) 500 mg PO DAILY [facility] Last Admin: 08/15/17 18:24 Dose: 500 mg Ergocalciferol (Drisdol 50,000 Intl Units Cap) 1 cap PO Q7D [facility] Stop: 09/26/17 11:15 Last Admin: 08/15/17 12:00 Dose: 1 cap Ferrous Sulfate (Feosol) 325 mg PO DAILY [facility] Last Admin: 08/15/17 10:32 Dose: 325 mg Memantine (Namenda) 5 mg PO DAILY [facility] Last Admin: 08/15/17 18:24 Dose: 5 mg - Labs Labs: 08/15/17 11:22 08/15/17 07:39 PT 13.2 SECONDS (9.7-12.2) H 08/07/17 21:20 INR 1.2 08/07/17 21:20 APTT 34 SECONDS (21-34) 08/07/17 21:20 Attending/Attestation - Attestation I have personally seen and examined this patient.: Yes I have fully participated in the care of the patient.: Yes I have reviewed all pertinent clinical information, including history, physical exam and plan: Yes Notes (Text): Please note in discharge summary my notes blow." Patient seen, examined, and case discussed with day-time resident. Patient seen by the third time with his who is also present at bedside in afternoon. Patient with known history of traumatic brain injury secondary to head bleed sustained by fall many years ago per . Patient is ambulatory, grunts, but does not appear agitated. 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 Patient noted to be nonverbal about two years ago. 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 They do not have any children. Per , today, patient is more active, wants to move around, and is requesting neurology evaluation. I have spoken with neurologist and nurse practitioner working with the neurologist, patient's refusing imaging. I spoke neurologist recommending for three medications to help improve mood and alleviate agitation for the patient. She was explained that the patient can see him as outpatient. Assessment/Plan 1). Hx Dementia/Traumatic Brain Injury * Neurology (Dr. Cleaning) on case-->help appreciated * CT Head does not show any acute hemorrhage/mass effect * Start Namenda 5mg PO daily, Amandatine 5mg PO daily and Depakote ER 500mg PO daily 2). Hx CKD * BUN/Cr and GFR are currently normal 3). Hx HTN * Patient's who is a patient in the room with him stated that he does not have history of HTN. Blood Pressure is mildly elevated. 4). Hx Hypernatremia * has normalized 5). Vitamin D Deficiency * Started on Vitamin D 50,000 Units PO once a week for 8 weeks on Wednesdays with last dose 09/26/17. 6). Abnormal RBC Indices * Low MCV, Iron: 97, TIBC: 362, 27 iron saturation, 7.9 ferritin, elevated RDW * Ferrous Sulfate 325 mg PO 1x/day. 7). Increased Frequency * F/U UA. However this is going to be hard to obtain as patient does not speak nor state when he has to use the bathroom and just urinates. 8) Mycotic Nails * Podiatry (Dr. Nugent) on board-->help appreciated * Nails debrided on 08/12 * Stable from podiatry standpoint, signed off 08/12 9) Fever * Afebrile twenty four hours * Awaiting blood cultures, No elevated white count. No acute cardiopulmonary disease on chest xray. * Monitor Temperature 10) Prophylactic measure * Patient is ambulatory, needs assistance and observation * Social work and palliative care on board-->attempts to procure placement rehab vs home care to assist -->ongoing discussion; patient is pending placement. * Heparin 5000 units [id number] for dvt ppx Disposition: Patient is medically stable for discharge. patient started on new medications for mood stablization and agitation. Avoid Benzos. Discussed with case management, patient with will leave 08/16/17.
[2017-08-15 08:15] LABS: ALB/GLOB RATIO 1.1 (1.0-2.1); ALKALINE PHOSPHATASE 54 U/L (38-126); ALT/SGPT 28 U/L (21-72); AST/SGOT 29 U/L (17-59); BILIRUBIN,TOTAL 0.6 mg/dL (0.2-1.3); BLOOD UREA NITROGEN 16 mg/dL (9-20); CARBON DIOXIDE 29 mmol/L (22-30); CHLORIDE 105 mmol/L (98-107); GFR AFRICAN-AMERICAN > 60; GLUCOSE,RANDOM 82 mg/dL (75-110); MAGNESIUM 1.7 mg/dL (1.6-2.3); PHOSPHOROUS 2.9 mg/dL (2.5-4.5); POTASSIUM 4.2 mmol/L (3.6-5.2); SODIUM 139 mmol/L (132-148); TOTAL PROTEIN 6.4 g/dL (6.3-8.3)
[2017-08-15 11:31] LABS: BASO % 0.4 % (0.0-2.0); EOS # 0.1 K/uL (0.0-0.7); EOS % 1.3 % (0.0-4.0); HEMATOCRIT 37.9 % (35.0-51.0); LYMPH # 2.2 K/uL (1.0-4.3); MEAN CELL VOLUME 71.6 fL (80.0-94.0); MEAN CORPUSCULAR HEMOGLOBIN 23.1 pg (27.0-31.0); MEAN CORPUSCULAR HGB CONC 32.2 g/dL (33.0-37.0); MEAN PLATELET VOLUME 9.6 fL (7.2-11.7); MONO # 0.9 K/uL (0.0-0.8); MONO % 10.2 % (0.0-10.0); NRBC % 0.1 % (0.0-2.0); RED CELL DISTRIBUTION WIDTH 25.4 % (11.5-14.5); WHITE BLOOD COUNT 8.6 K/uL (4.8-10.8)
--- NOTE | 2017-08-15 11:58 | RAD ---
HISTORY: fever COMPARISON: Portable chest 07/30/2017. FINDINGS: LUNGS: No active pulmonary disease. PLEURA: No significant pleural effusion identified, no pneumothorax apparent. CARDIOVASCULAR: Normal. OSSEOUS STRUCTURES: No significant abnormalities. VISUALIZED UPPER ABDOMEN: Normal. OTHER FINDINGS: None. IMPRESSION: No interval acute cardiopulmonary disease appreciated.
[2017-08-15] MEDS: Ergocalciferol 50,000 Intl Units Cap PO SCH (12:00)
--- NOTE | 2017-08-15 16:33 | CP.PCM.CON ---
History of Present Illness - History of Present Illness History of Present Illness: Mr. Mckeon is a 61-year-old man with a past medical history of a traumatic brain injury and progressive dementia over the last 10 years. He has become non -verbal for the last two years, but over the last year, he has lost the ability to care for himself completely and developed urinary and bowel incontinence. The history is provided by the patient's , who also states that her has never been seen by a neurologist, but he has been prescribed Haldol, Risperdal and Ativan, which do not help him and may have made him worse. The patient's seems to be upset and does not want any studies to be done, but insists that we fix the patient's blood supply to the brain. She does not want surgery, but would like some medications that "increase the blood to the brain" . When I inform her that the dementia may not be repairable by medications, she insists that we give him medications. In that past, any medications her has gotten, she has stopped because they did not work right away and she does not believe that they will work. Review of Systems - Review of Systems Systems not reviewed;Unavailable: Altered Mental Status Past Patient History - Past Medical History & Family History Past Medical History?: Yes - Past Social History Smoking Status: Former Smoker - CARDIAC Hx Hypertension: Yes - PULMONARY Hx Respiratory Disorders: No - NEUROLOGICAL Hx Neurological Disorder: Yes HX Cerebrovascular Accident: Yes - HEENT Hx HEENT Problems: No - RENAL Hx Chronic Kidney Disease: Yes - ENDOCRINE/METABOLIC Hx Endocrine Disorders: No - HEMATOLOGICAL/ONCOLOGICAL Hx Blood Disorders: No - INTEGUMENTARY Hx Dermatological Problems: No - MUSCULOSKELETAL/RHEUMATOLOGICAL Hx Musculoskeletal Disorders: Yes Hx Falls: Yes - GASTROINTESTINAL Hx Gastrointestinal Disorders: Yes Hx Constipation: Yes - GENITOURINARY/GYNECOLOGICAL Hx Genitourinary Disorders: Yes Hx Incontinence: Yes - PSYCHIATRIC Hx Substance Use: No - SURGICAL HISTORY Hx Surgeries: Yes Hx Herniorrhaphy: Yes - ANESTHESIA Hx Anesthesia: Yes Hx Anesthesia Reactions: No Hx Malignant Hyperthermia: No Meds Allergies/Adverse Reactions: Allergies Allergy/AdvReac Type Severity Reaction Status Date / Time No Known Allergies Allergy Verified 08/07/17 20:25 - Medications Medications: Current Medications Ergocalciferol (Drisdol 50,000 Intl Units Cap) 1 cap PO Q7D [facility] Stop: 09/26/17 11:15 Last Admin: 08/15/17 12:00 Dose: 1 cap Ferrous Sulfate (Feosol) 325 mg PO DAILY [facility] Last Admin: 08/15/17 10:32 Dose: 325 mg Physical Exam - Constitutional Appears: Unkempt, Older Than Stated Age - Head Exam Head Exam: ATRAUMATIC, NORMAL INSPECTION, NORMOCEPHALIC - Eye Exam Eye Exam: EOMI, Normal appearance, PERRL - ENT Exam ENT Exam: Mucous Membranes Dry - Neck Exam Neck exam: Positive for: Normal Inspection - Cardiovascular Exam Cardiovascular Exam: REGULAR RHYTHM, +S1, +S2 - Rectal Exam Rectal Exam: Deferred - Neurological Exam Additional comments: Non-verbal, but makes grunting sounds that are out of agitation. He does not follow any commands, but moves all extremities symmetrically. He has sensation to pain and light touch. Reflexes could not be elicited in his tense state. Gait could not be assessed. - Psychiatric Exam Psychiatric exam: Agitated - Skin Skin Exam: Dry, Intact, Normal Color, Warm Results - Vital Signs Recent Vital Signs: Last Vital Signs Temp 98.9 F 08/14/17 22:24 Pulse 76 08/14/17 15:00 Resp 20 08/14/17 15:00 BP 110/77 08/14/17 15:00 Pulse Ox 99 08/14/17 15:00 - Labs Result Diagrams: 08/15/17 11:22 08/15/17 07:39 Labs: Laboratory Results - last 24 hr 08/15/17 08/15/17 07:39 11:22 WBC 8.6 RBC 5.29 Hgb 12.2 Hct 37.9 MCV 71.6 L MCH 23.1 L MCHC 32.2 L RDW 25.4 H Plt Count 188 MPV 9.6 Neut % (Auto) 63.1 Lymph % (Auto) 25.0 [place] % (Auto) 10.2 H Eos % (Auto) 1.3 Baso % (Auto) 0.4 Neut # 5.4 Lymph # 2.2 [place] # 0.9 H Eos # 0.1 Baso # 0.0 Sodium 139 Potassium 4.2 Chloride 105 Carbon Dioxide 29 Anion Gap 10 BUN 16 Creatinine 0.7 L Est GFR ( Amer) > 60 Est GFR (Non-Af Amer) > 60 Random Glucose 82 Calcium 8.0 L Phosphorus 2.9 Magnesium 1.7 Total Bilirubin 0.6 AST 29 ALT 28 Alkaline Phosphatase 54 Total Protein 6.4 Albumin 3.3 L Globulin 3.1 Albumin/Globulin Ratio 1.1 - Imaging and Cardiology CT scan - head Status: Image reviewed by me, Report reviewed by me (Advanced atrophy and hydrocephalus ex vacuo.) Assessment & Plan (1) Dementia Assessment and Plan: This is likely a progressive process that may have been exacerbated by the brain injury. We can start treatment with Namenda and Amantadine to assist in dementia and aphasia, respectively. I recommend avoiding benzodiazepines or neuroleptics for now and start Depakote ER 500 mg QHS for agitation and mood stabilization. The patient may follow up with me in the outpatient setting. I' ve given my card to his . Thank you. Status: Chronic Priority: Medium
--- NOTE | 2017-08-15 16:52 | CP.PCM.DIS ---
<Janna Washington - Last Filed: 08/15/17 16:51> Provider - Provider Date of Admission: 08/07/17 22:00 Attending physician: Kimi Barraza DO Time Spent in preparation of Discharge (in minutes): 45 Diagnosis - Discharge Diagnosis (1) Failure to thrive Status: Chronic (2) Hypernatremia Status: Resolved (3) Dementia Status: Chronic Priority: Medium (4) Vitamin D deficiency Status: Acute (5) Abnormal RBC indices Status: Acute (6) Prophylactic measure Status: Acute Hospital Course - Lab Results Lab Results: Most Recent Lab Values WBC 8.6 K/uL (4.8-10.8) 08/15/17 11:22 RBC 5.29 Mil/uL (4.40-5.90) 08/15/17 11:22 Hgb 12.2 g/dL (12.0-18.0) 08/15/17 11:22 Hct 37.9 % (35.0-51.0) 08/15/17 11:22 MCV 71.6 fL (80.0-94.0) L 08/15/17 11:22 MCH 23.1 pg (27.0-31.0) L 08/15/17 11:22 MCHC 32.2 g/dL (33.0-37.0) L 08/15/17 11:22 RDW 25.4 % (11.5-14.5) H 08/15/17 11:22 Plt Count 188 K/uL (130-400) 08/15/17 11:22 MPV 9.6 fL (7.2-11.7) 08/15/17 11:22 Neut % (Auto) 63.1 % (50.0-75.0) 08/15/17 11:22 Lymph % (Auto) 25.0 % (20.0-40.0) 08/15/17 11:22 [place] % (Auto) 10.2 % (0.0-10.0) H 08/15/17 11:22 Eos % (Auto) 1.3 % (0.0-4.0) 08/15/17 11:22 Baso % (Auto) 0.4 % (0.0-2.0) 08/15/17 11:22 Neut # 5.4 K/uL (1.8-7.0) 08/15/17 11:22 Lymph # 2.2 K/uL (1.0-4.3) 08/15/17 11:22 [place] # 0.9 K/uL (0.0-0.8) H 08/15/17 11:22 Eos # 0.1 K/uL (0.0-0.7) 08/15/17 11:22 Baso # 0.0 K/uL (0.0-0.2) 08/15/17 11:22 PT 13.2 SECONDS (9.7-12.2) H 08/07/17 21:20 INR 1.2 08/07/17 21:20 APTT 34 SECONDS (21-34) 08/07/17 21:20 pO2 64 mm/Hg (30-55) H 08/07/17 20:55 VBG pH 7.44 (7.32-7.43) H 08/07/17 20:55 VBG pCO2 40 mmHg (40-60) 08/07/17 20:55 VBG HCO3 27.0 mmol/L 08/07/17 20:55 VBG Total CO2 28.4 mmol/L (22-28) H 08/07/17 20:55 VBG O2 Sat (Calc) 96.8 % (40-65) H 08/07/17 20:55 VBG Base Excess 2.8 mmol/L (0.0-2.0) H 08/07/17 20:55 VBG Potassium 3.6 mmol/L (3.6-5.2) 08/07/17 20:55 Sodium 157.0 mmol/l (132-148) H 08/07/17 20:55 Chloride 129.0 mmol/L (98-107) H 08/07/17 20:55 Glucose 115 mg/dl (75-110) H 08/07/17 20:55 Lactate 2.8 mmol/L (0.7-2.1) H 08/07/17 20:55 FiO2 21.0 % 08/07/17 20:55 Sodium 139 mmol/L (132-148) 08/15/17 07:39 Potassium 4.2 mmol/L (3.6-5.2) 08/15/17 07:39 Chloride 105 mmol/L (98-107) 08/15/17 07:39 Carbon Dioxide 29 mmol/L (22-30) 08/15/17 07:39 Anion Gap 10 (10-20) 08/15/17 07:39 BUN 16 mg/dL (9-20) 08/15/17 07:39 Creatinine 0.7 mg/dL (0.8-1.5) L 08/15/17 07:39 Est GFR ( Amer) > 60 08/15/17 07:39 Est GFR (Non-Af Amer) > 60 08/15/17 07:39 POC Glucose (mg/dL) 97 mg/dL (65-110) 08/09/17 16:29 Random Glucose 82 mg/dL (75-110) 08/15/17 07:39 Lactic Acid 0.9 mmol/L (0.7-2.1) 08/08/17 00:48 Calcium 8.0 mg/dl (8.6-10.4) L 08/15/17 07:39 Phosphorus 2.9 mg/dL (2.5-4.5) 08/15/17 07:39 Magnesium 1.7 mg/dL (1.6-2.3) 08/15/17 07:39 Iron 97 ug/dL (49-181) 08/09/17 08:02 TIBC 362 ug/dL (250-450) 08/09/17 08:02 % Saturation 27 (20-55) 08/09/17 08:02 Ferritin 7.9 ng/mL 08/09/17 08:02 Total Bilirubin 0.6 mg/dL (0.2-1.3) 08/15/17 07:39 AST 29 U/L (17-59) 08/15/17 07:39 ALT 28 U/L (21-72) 08/15/17 07:39 Alkaline Phosphatase 54 U/L (38-126) 08/15/17 07:39 Troponin I < 0.0120 ng/mL (0.00-0.120) 08/07/17 20:54 Total Protein 6.4 g/dL (6.3-8.3) 08/15/17 07:39 Albumin 3.3 g/dL (3.5-5.0) L 08/15/17 07:39 Globulin 3.1 gm/dL (2.2-3.9) 08/15/17 07:39 Albumin/Globulin Ratio 1.1 (1.0-2.1) 08/15/17 07:39 Vitamin B12 286 pg/mL (239-931) 08/08/17 07:58 25-OH Vitamin D Total 16.4 NG/ML (30.0-100.0) L 08/08/17 07:58 Folate 11.5 ng/mL 08/08/17 07:58 TSH 3rd Generation 0.67 mIU/L (0.46-4.68) 08/08/17 07:58 Venous Blood Potassium 3.6 mmol/L (3.6-5.2) 08/07/17 20:55 Discharge Exam - Head Exam Head Exam: ATRAUMATIC, NORMAL INSPECTION, NORMOCEPHALIC Discharge Plan - Follow Up Plan Condition: STABLE Disposition: REHAB FACILITY/REHAB UNIT Additional Instructions: Patient is stable for discharge to [facility]. Patient should continue all medications. Patient should follow up with their PMD within 1-2 weeks of discharge. Patient should follow up as outpatient with neurologist, Dr. Cleaning. If symptoms reoccur or worsen, patient should return to the ED. Referrals: Junaid Cleaning MD [Staff Provider] - <Kimi Barraza V - Last Filed: 08/15/17 18:57> Provider - Provider Date of Admission: 08/07/17 22:00 Attending physician: Kimi Barraza, DO Hospital Course - Lab Results Lab Results: Most Recent Lab Values WBC 8.6 K/uL (4.8-10.8) 08/15/17 11:22 RBC 5.29 Mil/uL (4.40-5.90) 08/15/17 11:22 Hgb 12.2 g/dL (12.0-18.0) 08/15/17 11:22 Hct 37.9 % (35.0-51.0) 08/15/17 11:22 MCV 71.6 fL (80.0-94.0) L 08/15/17 11:22 MCH 23.1 pg (27.0-31.0) L 08/15/17 11:22 MCHC 32.2 g/dL (33.0-37.0) L 08/15/17 11:22 RDW 25.4 % (11.5-14.5) H 08/15/17 11:22 Plt Count 188 K/uL (130-400) 08/15/17 11:22 MPV 9.6 fL (7.2-11.7) 08/15/17 11:22 Neut % (Auto) 63.1 % (50.0-75.0) 08/15/17 11:22 Lymph % (Auto) 25.0 % (20.0-40.0) 08/15/17 11:22 [place] % (Auto) 10.2 % (0.0-10.0) H 08/15/17 11:22 Eos % (Auto) 1.3 % (0.0-4.0) 08/15/17 11:22 Baso % (Auto) 0.4 % (0.0-2.0) 08/15/17 11:22 Neut # 5.4 K/uL (1.8-7.0) 08/15/17 11:22 Lymph # 2.2 K/uL (1.0-4.3) 08/15/17 11:22 [place] # 0.9 K/uL (0.0-0.8) H 08/15/17 11:22 Eos # 0.1 K/uL (0.0-0.7) 08/15/17 11:22 Baso # 0.0 K/uL (0.0-0.2) 08/15/17 11:22 PT 13.2 SECONDS (9.7-12.2) H 08/07/17 21:20 INR 1.2 08/07/17 21:20 APTT 34 SECONDS (21-34) 08/07/17 21:20 pO2 64 mm/Hg (30-55) H 08/07/17 20:55 VBG pH 7.44 (7.32-7.43) H 08/07/17 20:55 VBG pCO2 40 mmHg (40-60) 08/07/17 20:55 VBG HCO3 27.0 mmol/L 08/07/17 20:55 VBG Total CO2 28.4 mmol/L (22-28) H 08/07/17 20:55 VBG O2 Sat (Calc) 96.8 % (40-65) H 08/07/17 20:55 VBG Base Excess 2.8 mmol/L (0.0-2.0) H 08/07/17 20:55 VBG Potassium 3.6 mmol/L (3.6-5.2) 08/07/17 20:55 Sodium 157.0 mmol/l (132-148) H 08/07/17 20:55 Chloride 129.0 mmol/L (98-107) H 08/07/17 20:55 Glucose 115 mg/dl (75-110) H 08/07/17 20:55 Lactate 2.8 mmol/L (0.7-2.1) H 08/07/17 20:55 FiO2 21.0 % 08/07/17 20:55 Sodium 139 mmol/L (132-148) 08/15/17 07:39 Potassium 4.2 mmol/L (3.6-5.2) 08/15/17 07:39 Chloride 105 mmol/L (98-107) 08/15/17 07:39 Carbon Dioxide 29 mmol/L (22-30) 08/15/17 07:39 Anion Gap 10 (10-20) 08/15/17 07:39 BUN 16 mg/dL (9-20) 08/15/17 07:39 Creatinine 0.7 mg/dL (0.8-1.5) L 08/15/17 07:39 Est GFR ( Amer) > 60 08/15/17 07:39 Est GFR (Non-Af Amer) > 60 08/15/17 07:39 POC Glucose (mg/dL) 97 mg/dL (65-110) 08/09/17 16:29 Random Glucose 82 mg/dL (75-110) 08/15/17 07:39 Lactic Acid 0.9 mmol/L (0.7-2.1) 08/08/17 00:48 Calcium 8.0 mg/dl (8.6-10.4) L 08/15/17 07:39 Phosphorus 2.9 mg/dL (2.5-4.5) 08/15/17 07:39 Magnesium 1.7 mg/dL (1.6-2.3) 08/15/17 07:39 Iron 97 ug/dL (49-181) 08/09/17 08:02 TIBC 362 ug/dL (250-450) 08/09/17 08:02 % Saturation 27 (20-55) 08/09/17 08:02 Ferritin 7.9 ng/mL 08/09/17 08:02 Total Bilirubin 0.6 mg/dL (0.2-1.3) 08/15/17 07:39 AST 29 U/L (17-59) 08/15/17 07:39 ALT 28 U/L (21-72) 08/15/17 07:39 Alkaline Phosphatase 54 U/L (38-126) 08/15/17 07:39 Troponin I < 0.0120 ng/mL (0.00-0.120) 08/07/17 20:54 Total Protein 6.4 g/dL (6.3-8.3) 08/15/17 07:39 Albumin 3.3 g/dL (3.5-5.0) L 08/15/17 07:39 Globulin 3.1 gm/dL (2.2-3.9) 08/15/17 07:39 Albumin/Globulin Ratio 1.1 (1.0-2.1) 08/15/17 07:39 Vitamin B12 286 pg/mL (239-931) 08/08/17 07:58 25-OH Vitamin D Total 16.4 NG/ML (30.0-100.0) L 08/08/17 07:58 Folate 11.5 ng/mL 08/08/17 07:58 TSH 3rd Generation 0.67 mIU/L (0.46-4.68) 08/08/17 07:58 Venous Blood Potassium 3.6 mmol/L (3.6-5.2) 08/07/17 20:55 Attending/Attestation - Attestation I have personally seen and examined this patient.: Yes I have fully participated in the care of the patient.: Yes I have reviewed all pertinent clinical information, including history, physical exam and plan: Yes Notes (Text): Patient seen, examined, and case discussed with day-time resident. Patient seen by the second time with his who is also present at bedside in afternoon. Patient with known history of traumatic brain injury secondary to head bleed sustained by fall many years ago per . Patient is ambulatory, grunts, but does not appear agitated. 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 Patient noted to be nonverbal about two years ago. 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 They do not have any children. Per , today, patient is more active, wants to move around, and is requesting neurology evaluation. I have spoken with neurologist and nurse practitioner working with the neurologist, patient refusing imaging. I spoke neurologist recommending for three medications to help improve mood and alleviate agitation for the patient. She was explained that the patient can see him as outpatient. Assessment/Plan 1). Hx Dementia/Traumatic Brain Injury * Neurology (Dr. Cleaning) on case-->help appreciated * CT Head does not show any acute hemorrhage/mass effect * Start Namenda 5mg PO daily, Amandatine 5mg PO daily and Depakote ER 500mg PO daily 2). Hx CKD * BUN/Cr and GFR are currently normal 3). Hx HTN * Patient's who is a patient in the room with him stated that he does not have history of HTN. Blood Pressure is mildly elevated. 4). Hx Hypernatremia * has normalized 5). Vitamin D Deficiency * Started on Vitamin D 50,000 Units PO once a week for 8 weeks on Wednesdays with last dose 09/26/17. 6). Abnormal RBC Indices * Low MCV, Iron: 97, TIBC: 362, 27 iron saturation, 7.9 ferritin, elevated RDW * Ferrous Sulfate 325 mg PO 1x/day. 7). Increased Frequency * F/U UA. However this is going to be hard to obtain as patient does not speak nor state when he has to use the bathroom and just urinates. 8) Mycotic Nails * Podiatry (Dr. Nugent) on board-->help appreciated * Nails debrided on 08/12 * Stable from podiatry standpoint, signed off 08/12 9) Fever * Afebrile twenty four hours * Awaiting blood cultures, No elevated white count. No acute cardiopulmonary disease on chest xray. * Monitor Temperature 10) Prophylactic measure * Patient is ambulatory, needs assistance and observation * Social work and palliative care on board-->attempts to procure placement rehab vs home care to assist -->ongoing discussion; patient is pending placement. * Heparin 5000 units [id number] for dvt ppx Disposition: Patient is medically stable for discharge. patient started on new medications for mood stablization and agitation. Avoid Benzos. Discussed with case management, patient with will leave tomorrow.
[2017-08-15] MEDS: Divalproex 500 mg ER Tab PO SCH (18:24)
[2017-08-16 00:09] VITALS: TEMP 98.1; O2SAT 98
[2017-08-16 08:17] VITALS: BP 123/76; PULSE 75
[2017-08-16 09:03] LABS: BASO # 0.1 K/uL (0.0-0.2); BASO % 0.8 % (0.0-2.0); EOS # 0.2 K/uL (0.0-0.7); EOS % 2.2 % (0.0-4.0); HEMATOCRIT 35.8 % (35.0-51.0); LYMPH # 1.5 K/uL (1.0-4.3); LYMPH % 20.7 % (20.0-40.0); MEAN CELL VOLUME 71.5 fL (80.0-94.0); MEAN CORPUSCULAR HEMOGLOBIN 23.3 pg (27.0-31.0); MEAN CORPUSCULAR HGB CONC 32.6 g/dL (33.0-37.0); MEAN PLATELET VOLUME 9.9 fL (7.2-11.7); MONO # 0.8 K/uL (0.0-0.8); MONO % 10.7 % (0.0-10.0); RED CELL DISTRIBUTION WIDTH 25.6 % (11.5-14.5); WHITE BLOOD COUNT 7.4 K/uL (4.8-10.8)
[2017-08-16 09:22] LABS: FT3 3.73 pg/mL (2.77-5.27)
[2017-08-16 09:36] LABS: THYROID STIMULATING HORMONE 0.87 mIU/L (0.46-4.68)
[2017-08-16 10:11] LABS: FOLATE 10.5 ng/mL
[2017-08-16] MEDS: Divalproex 500 mg ER Tab PO SCH (10:20)
--- NOTE | 2017-08-16 10:34 | CP.PCM.DIS ---
<Janna Washington - Last Filed: 08/16/17 17:24> Provider - Provider Date of Admission: 08/07/17 22:00 Attending physician: Kimi Barraza DO Consults: Dr. Cleaning- Neurology Time Spent in preparation of Discharge (in minutes): 45 Diagnosis - Discharge Diagnosis (1) Failure to thrive Status: Chronic (2) Dementia Status: Chronic Priority: Medium (3) Vitamin D deficiency Status: Chronic (4) Abnormal RBC indices Status: Chronic (5) Prophylactic measure Status: Acute Hospital Course - Lab Results Lab Results: Micro Results 08/14/17 22:00 Blood Blood Culture - Preliminary NO GROWTH AFTER 24 HOURS 08/14/17 22:25 Blood Blood Culture - Preliminary NO GROWTH AFTER 24 HOURS Most Recent Lab Values WBC 7.4 K/uL (4.8-10.8) 08/16/17 08:16 RBC 5.01 Mil/uL (4.40-5.90) 08/16/17 08:16 Hgb 11.7 g/dL (12.0-18.0) L 08/16/17 08:16 Hct 35.8 % (35.0-51.0) 08/16/17 08:16 MCV 71.5 fL (80.0-94.0) L 08/16/17 08:16 MCH 23.3 pg (27.0-31.0) L 08/16/17 08:16 MCHC 32.6 g/dL (33.0-37.0) L 08/16/17 08:16 RDW 25.6 % (11.5-14.5) H 08/16/17 08:16 Plt Count 184 K/uL (130-400) 08/16/17 08:16 MPV 9.9 fL (7.2-11.7) 08/16/17 08:16 Neut % (Auto) 65.6 % (50.0-75.0) 08/16/17 08:16 Lymph % (Auto) 20.7 % (20.0-40.0) 08/16/17 08:16 [place] % (Auto) 10.7 % (0.0-10.0) H 08/16/17 08:16 Eos % (Auto) 2.2 % (0.0-4.0) 08/16/17 08:16 Baso % (Auto) 0.8 % (0.0-2.0) 08/16/17 08:16 Neut # 4.9 K/uL (1.8-7.0) 08/16/17 08:16 Lymph # 1.5 K/uL (1.0-4.3) 08/16/17 08:16 [place] # 0.8 K/uL (0.0-0.8) 08/16/17 08:16 Eos # 0.2 K/uL (0.0-0.7) 08/16/17 08:16 Baso # 0.1 K/uL (0.0-0.2) 08/16/17 08:16 PT 13.2 SECONDS (9.7-12.2) H 08/07/17 21:20 INR 1.2 08/07/17 21:20 APTT 34 SECONDS (21-34) 08/07/17 21:20 pO2 64 mm/Hg (30-55) H 08/07/17 20:55 VBG pH 7.44 (7.32-7.43) H 08/07/17 20:55 VBG pCO2 40 mmHg (40-60) 08/07/17 20:55 VBG HCO3 27.0 mmol/L 08/07/17 20:55 VBG Total CO2 28.4 mmol/L (22-28) H 08/07/17 20:55 VBG O2 Sat (Calc) 96.8 % (40-65) H 08/07/17 20:55 VBG Base Excess 2.8 mmol/L (0.0-2.0) H 08/07/17 20:55 VBG Potassium 3.6 mmol/L (3.6-5.2) 08/07/17 20:55 Sodium 157.0 mmol/l (132-148) H 08/07/17 20:55 Chloride 129.0 mmol/L (98-107) H 08/07/17 20:55 Glucose 115 mg/dl (75-110) H 08/07/17 20:55 Lactate 2.8 mmol/L (0.7-2.1) H 08/07/17 20:55 FiO2 21.0 % 08/07/17 20:55 Sodium 139 mmol/L (132-148) 08/15/17 07:39 Potassium 4.2 mmol/L (3.6-5.2) 08/15/17 07:39 Chloride 105 mmol/L (98-107) 08/15/17 07:39 Carbon Dioxide 29 mmol/L (22-30) 08/15/17 07:39 Anion Gap 10 (10-20) 08/15/17 07:39 BUN 16 mg/dL (9-20) 08/15/17 07:39 Creatinine 0.7 mg/dL (0.8-1.5) L 08/15/17 07:39 Est GFR ( Amer) > 60 08/15/17 07:39 Est GFR (Non-Af Amer) > 60 08/15/17 07:39 POC Glucose (mg/dL) 97 mg/dL (65-110) 08/09/17 16:29 Random Glucose 82 mg/dL (75-110) 08/15/17 07:39 Lactic Acid 0.9 mmol/L (0.7-2.1) 08/08/17 00:48 Calcium 8.0 mg/dl (8.6-10.4) L 08/15/17 07:39 Phosphorus 2.9 mg/dL (2.5-4.5) 08/15/17 07:39 Magnesium 1.7 mg/dL (1.6-2.3) 08/15/17 07:39 Iron 97 ug/dL (49-181) 08/09/17 08:02 TIBC 362 ug/dL (250-450) 08/09/17 08:02 % Saturation 27 (20-55) 08/09/17 08:02 Ferritin 7.9 ng/mL 08/09/17 08:02 Total Bilirubin 0.6 mg/dL (0.2-1.3) 08/15/17 07:39 AST 29 U/L (17-59) 08/15/17 07:39 ALT 28 U/L (21-72) 08/15/17 07:39 Alkaline Phosphatase 54 U/L (38-126) 08/15/17 07:39 Troponin I < 0.0120 ng/mL (0.00-0.120) 08/07/17 20:54 Total Protein 6.4 g/dL (6.3-8.3) 08/15/17 07:39 Albumin 3.3 g/dL (3.5-5.0) L 08/15/17 07:39 Globulin 3.1 gm/dL (2.2-3.9) 08/15/17 07:39 Albumin/Globulin Ratio 1.1 (1.0-2.1) 08/15/17 07:39 Vitamin B12 225 pg/mL (239-931) L 08/15/17 08:37 25-OH Vitamin D Total 16.4 NG/ML (30.0-100.0) L 08/08/17 07:58 Folate 10.5 ng/mL 08/15/17 08:37 Free T3 pg/mL 3.73 pg/mL (2.77-5.27) 08/15/17 08:37 TSH 3rd Generation 0.87 mIU/L (0.46-4.68) 08/15/17 08:37 Venous Blood Potassium 3.6 mmol/L (3.6-5.2) 08/07/17 20:55 - Hospital Course Hospital Course: CC: Dehydration, Failure to thrive HPI: 61 year old male with a history of TBI and dementia presented to the ED with altered mental status and agitation. Patient had TBI ten years ago, and his health has gradually declined since then. He has been nonverbal for the past two years, and has had urinary/fecal incontinence for the past four years. Patient is able to ambulate on his own. His , who is his primary caregiver, reports that the patient has been agitated and increasingly somnolent the last few days, and that he also has not been eating normally. Patient cannot provide any information as he is nonverbal and baseline AMS. denies fever, cough. Patient was agitated on arrival, and Ativan was given. Patient was sleeping comfortably when seen and examined at bedside later in the evening. PMH: HTN, CKD, TBI, dementia PSH: Unknown Family History: Unknown Medications: Ativan .5 mg q6 PRN, Milk of Magnesia 30 ml HS, Famotidine 20 mg BID, Tylenol 650 mg q4 prn, Tylenol 325 mg q4 PRN, Ativan 0.5 mg HS prn Allergies: NKDA Social History: Former smoker, no drug or alcohol use Hospital Course: Patient was admitted to hospital on 08/07 after presenting to the ED with a change in mental status and agitation. Patient was admitted for failure to thrive, hypernatremia, and end stage dementia. Head CT was done on which revealed no evidence of acute hemorrhage/mass effect. Patient was given fluids D5 NS with 20 meq KCl at 50 ml/hour which resolved his hypernatremia. With his history of CKD, patients BUN/Cr and GFR were normal and monitored throughout hospital stay. Patients Vitamin D deficiency was treated with 50,000 Units PO once a week. Patient was doing well and evaluated daily for any medical complications. He had one episode of a 100F fever on 08/14 but the fever resolved before the patient received Tylenol. A chest xray, blood cultures, urine culture and UA were done on 08/15 to evaluate the source of the fever, but tests returned normal. Due to the 's concern about his mental status, neurology was consulted to evaluate the patient. Dr. Cleaning (neurology) evaluated the patient on 08/15 and started him on Amantadine 100 mg PO and Memantine 5 mg PO, he also recommended starting Depakote ER 500 mg QHS for agitation and mood stabilization and to avoid benzodiazepines or neuroleptics for this time period. The patient is stable for discharge to [facility]. Since patients is his primary caregiver, she was instructed to follow up with [facility] and to follow up with Dr. Cleaning as outpatient. This is a brief summary of the hospital course. Please see EMR for more details. Discharge Exam - Head Exam Head Exam: ATRAUMATIC, NORMAL INSPECTION, NORMOCEPHALIC - Eye Exam Eye Exam: Normal appearance - ENT Exam ENT Exam: Mucous Membranes Moist - Respiratory Exam Respiratory Exam: Clear to PA & Lateral, NORMAL BREATHING PATTERN, UNREMARKABLE. absent: Rales, Rhonchi, Wheezes, Respiratory Distress - Cardiovascular Exam Cardiovascular Exam: REGULAR RHYTHM, +S1, +S2 - GI/Abdominal Exam GI & Abdominal Exam: Normal Bowel Sounds, Soft, Unremarkable. absent: Distended , Firm, Guarding, Tenderness - Extremities Exam Extremities exam: normal inspection - Neurological Exam Neurological exam: Alert, Altered - Psychiatric Exam Psychiatric exam: Normal Affect, Normal Mood - Skin Skin Exam: Dry, Intact, Normal Color, Warm Discharge Plan - Discharge Medications Prescriptions: Acetaminophen [Tylenol 325mg tab] 325 mg PO Q6H PRN #40 tab PRN Reason: Pain, Mild (1-3) - Follow Up Plan Condition: STABLE Disposition: REHAB FACILITY/REHAB UNIT Instructions: Acetaminophen (By mouth), Dementia (GEN), Altered Mental Status ( GEN) Additional Instructions: Patient is stable for discharge to [facility]. Patient should continue all medications. Patient should follow up with their PMD within 1-2 weeks of discharge. Patient should follow up as outpatient with neurologist, Dr. Cleaning. If symptoms reoccur or worsen, patient should return to the ED. Referrals: Junaid Cleaning MD [Staff Provider] - <Kimi Barraza V - Last Filed: 08/17/17 06:03> Provider - Provider Date of Admission: 08/07/17 22:00 Attending physician: Kimi Barraza DO Hospital Course - Lab Results Lab Results: Micro Results 08/14/17 22:00 Blood Blood Culture - Preliminary NO GROWTH AFTER 48 HOURS 08/14/17 22:25 Blood Blood Culture - Preliminary NO GROWTH AFTER 48 HOURS Most Recent Lab Values WBC 7.4 K/uL (4.8-10.8) 08/16/17 08:16 RBC 5.01 Mil/uL (4.40-5.90) 08/16/17 08:16 Hgb 11.7 g/dL (12.0-18.0) L 08/16/17 08:16 Hct 35.8 % (35.0-51.0) 08/16/17 08:16 MCV 71.5 fL (80.0-94.0) L 08/16/17 08:16 MCH 23.3 pg (27.0-31.0) L 08/16/17 08:16 MCHC 32.6 g/dL (33.0-37.0) L 08/16/17 08:16 RDW 25.6 % (11.5-14.5) H 08/16/17 08:16 Plt Count 184 K/uL (130-400) 08/16/17 08:16 MPV 9.9 fL (7.2-11.7) 08/16/17 08:16 Neut % (Auto) 65.6 % (50.0-75.0) 08/16/17 08:16 Lymph % (Auto) 20.7 % (20.0-40.0) 08/16/17 08:16 [place] % (Auto) 10.7 % (0.0-10.0) H 08/16/17 08:16 Eos % (Auto) 2.2 % (0.0-4.0) 08/16/17 08:16 Baso % (Auto) 0.8 % (0.0-2.0) 08/16/17 08:16 Neut # 4.9 K/uL (1.8-7.0) 08/16/17 08:16 Lymph # 1.5 K/uL (1.0-4.3) 08/16/17 08:16 [place] # 0.8 K/uL (0.0-0.8) 08/16/17 08:16 Eos # 0.2 K/uL (0.0-0.7) 08/16/17 08:16 Baso # 0.1 K/uL (0.0-0.2) 08/16/17 08:16 PT 13.2 SECONDS (9.7-12.2) H 08/07/17 21:20 INR 1.2 08/07/17 21:20 APTT 34 SECONDS (21-34) 08/07/17 21:20 pO2 64 mm/Hg (30-55) H 08/07/17 20:55 VBG pH 7.44 (7.32-7.43) H 08/07/17 20:55 VBG pCO2 40 mmHg (40-60) 08/07/17 20:55 VBG HCO3 27.0 mmol/L 08/07/17 20:55 VBG Total CO2 28.4 mmol/L (22-28) H 08/07/17 20:55 VBG O2 Sat (Calc) 96.8 % (40-65) H 08/07/17 20:55 VBG Base Excess 2.8 mmol/L (0.0-2.0) H 08/07/17 20:55 VBG Potassium 3.6 mmol/L (3.6-5.2) 08/07/17 20:55 Sodium 157.0 mmol/l (132-148) H 08/07/17 20:55 Chloride 129.0 mmol/L (98-107) H 08/07/17 20:55 Glucose 115 mg/dl (75-110) H 08/07/17 20:55 Lactate 2.8 mmol/L (0.7-2.1) H 08/07/17 20:55 FiO2 21.0 % 08/07/17 20:55 Sodium 139 mmol/L (132-148) 08/15/17 07:39 Potassium 4.2 mmol/L (3.6-5.2) 08/15/17 07:39 Chloride 105 mmol/L (98-107) 08/15/17 07:39 Carbon Dioxide 29 mmol/L (22-30) 08/15/17 07:39 Anion Gap 10 (10-20) 08/15/17 07:39 BUN 16 mg/dL (9-20) 08/15/17 07:39 Creatinine 0.7 mg/dL (0.8-1.5) L 08/15/17 07:39 Est GFR ( Amer) > 60 08/15/17 07:39 Est GFR (Non-Af Amer) > 60 08/15/17 07:39 POC Glucose (mg/dL) 97 mg/dL (65-110) 08/09/17 16:29 Random Glucose 82 mg/dL (75-110) 08/15/17 07:39 Lactic Acid 0.9 mmol/L (0.7-2.1) 08/08/17 00:48 Calcium 8.0 mg/dl (8.6-10.4) L 08/15/17 07:39 Phosphorus 2.9 mg/dL (2.5-4.5) 08/15/17 07:39 Magnesium 1.7 mg/dL (1.6-2.3) 08/15/17 07:39 Iron 97 ug/dL (49-181) 08/09/17 08:02 TIBC 362 ug/dL (250-450) 08/09/17 08:02 % Saturation 27 (20-55) 08/09/17 08:02 Ferritin 7.9 ng/mL 08/09/17 08:02 Total Bilirubin 0.6 mg/dL (0.2-1.3) 08/15/17 07:39 AST 29 U/L (17-59) 08/15/17 07:39 ALT 28 U/L (21-72) 08/15/17 07:39 Alkaline Phosphatase 54 U/L (38-126) 08/15/17 07:39 Troponin I < 0.0120 ng/mL (0.00-0.120) 08/07/17 20:54 Total Protein 6.4 g/dL (6.3-8.3) 08/15/17 07:39 Albumin 3.3 g/dL (3.5-5.0) L 08/15/17 07:39 Globulin 3.1 gm/dL (2.2-3.9) 08/15/17 07:39 Albumin/Globulin Ratio 1.1 (1.0-2.1) 08/15/17 07:39 Vitamin B12 225 pg/mL (239-931) L 08/15/17 08:37 25-OH Vitamin D Total 16.4 NG/ML (30.0-100.0) L 08/08/17 07:58 Folate 10.5 ng/mL 08/15/17 08:37 Thyroxine (T4) 7.49 ug/dL (5.5-11.0) 08/15/17 08:37 Free T3 pg/mL 3.73 pg/mL (2.77-5.27) 08/15/17 08:37 Total T3 1.90 nmol/L (1.49-2.60) 08/15/17 08:37 TSH 3rd Generation 0.87 mIU/L (0.46-4.68) 08/15/17 08:37 Venous Blood Potassium 3.6 mmol/L (3.6-5.2) 08/07/17 20:55 Attending/Attestation - Attestation I have personally seen and examined this patient.: Yes I have fully participated in the care of the patient.: Yes I have reviewed all pertinent clinical information, including history, physical exam and plan: Yes Notes (Text): This is late computer entry for 08/16/17. Patient seen, examined, and case discussed with day-time resident. Discussed with neurology, patient is stable for discharge. c/w new medications upon discharge and to follow-up outpatient. Discussed with window caser and social media editor, patient is stable for discharge. Patient is afebrile, negative blood cultures, ambulatory, active, and mild grunting which is his norm. Vitamin B12 low, given Vitamin B12 IM injection X1 today, will need B12 followed as outpatient Discharge order and discharge instructions discussed with day-time resident and his , who is primary clinical care manager at bedside. Patient recommended to establish care in the [facility] ([phone]), and followup for anemia, vitamin B12, and vitamin D. Recommended to follow-up outpatient with neurology. Assessment/Plan 1). Hx Dementia/Traumatic Brain Injury * Neurology (Dr. Cleaning) on case-->help appreciated * CT Head does not show any acute hemorrhage/mass effect * c/w Namenda 5mg PO daily, Amandatine 5mg PO daily and Depakote ER 500mg PO daily on discharge 2). Hx CKD * BUN/Cr and GFR are currently normal 3). Hx HTN * Patient's who is a patient in the room with him stated that he does not have history of HTN. Blood Pressure is mildly elevated. 4). Hx Hypernatremia * has normalized 5). Vitamin D Deficiency * Started on Vitamin D 50,000 Units PO once a week for 8 weeks on Wednesdays with last dose 09/26/17. Follow-up vitamin D upon repletion. 6). Abnormal RBC Indices * Low MCV, Iron: 97, TIBC: 362, 27 iron saturation, 7.9 ferritin, elevated RDW * Ferrous Sulfate 325 mg PO 1x/day. * Monitor 7). Increased Frequency * F/U UA. However this is going to be hard to obtain as patient does not speak nor state when he has to use the bathroom and just urinates. 8) Mycotic Nails * Podiatry (Dr. Nugent) on board-->help appreciated * Nails debrided on 08/12 * Stable from podiatry standpoint, signed off 08/12 9) Fever-->resolved * 48 hours afebrile * negative blood cultures No elevated white count. No acute cardiopulmonary disease on chest xray. * Monitor Temperature 10) Prophylactic measure * Patient is ambulatory, needs assistance and observation * Social work and palliative care on board-->attempts to procure placement rehab vs home care to assist -->ongoing discussion; patient is pending placement. * Heparin 5000 units [id number] for dvt ppx Disposition: Patient is medically stable for discharge. patient c/w with new medications for mood stablization and agitation. Avoid Benzos.
[2017-08-16 11:11] LABS: T4 7.49 ug/dL (5.5-11.0)
--- NOTE | 2017-08-16 13:49 | CP.PCM.PN ---
Subjective - Date & Time of Evaluation Date of Evaluation: 08/16/17 Time of Evaluation: 13:45 - Subjective Subjective: Mr. Mckeno was seen at the bedside. He is alert, restless, does not have any verbal response. The is at bedside assisting with his ADL. He is for discharge to a subacute rehabilitation today. He remains on 1;1 sitter for patient sitter. Objective - Vital Signs/Intake and Output Vital Signs (last 24 hours): Temp Pulse Resp BP Pulse Ox 98.1 F 75 20 123/76 98 08/16/17 08:16 08/16/17 08:16 08/16/17 08:16 08/16/17 08:16 08/16/17 08:16 Intake and Output: 08/16/17 08/16/17 06:59 18:59 Intake Total 400 Balance 400 - Medications Medications: Current Medications Amantadine HCl (Amantadine 100 Mg Cap) 100 mg PO DAILY [facility] Last Admin: 08/16/17 10:19 Dose: 100 mg Divalproex Sodium (Depakote Er) 500 mg PO DAILY [facility] Last Admin: 08/16/17 10:20 Dose: 500 mg Ergocalciferol (Drisdol 50,000 Intl Units Cap) 1 cap PO Q7D [facility] Stop: 09/26/17 11:15 Last Admin: 08/15/17 12:00 Dose: 1 cap Ferrous Sulfate (Feosol) 325 mg PO DAILY [facility] Last Admin: 08/16/17 10:30 Dose: 325 mg Memantine (Namenda) 5 mg PO DAILY [facility] Last Admin: 08/16/17 12:20 Dose: 5 mg - Labs Labs: 08/16/17 08:16 08/15/17 07:39 PT 13.2 SECONDS (9.7-12.2) H 08/07/17 21:20 INR 1.2 08/07/17 21:20 APTT 34 SECONDS (21-34) 08/07/17 21:20 - Constitutional Appears: No Acute Distress - Neurological Exam Neurological Exam: Awake Neuro motor strength exam: Left Upper Extremity: 5, Right Upper Extremity: 5, Left Lower Extremity: 5, Right Lower Extremity: 5 Additional comments: neurological unchanged from previous examination. Assessment and Plan (1) Dementia Assessment & Plan: Case discussed with Dr. Cleaning, continue all current medical regimen and clear for discharge to the subacute rehabilitation. Status: Chronic
== END 2017-08-16 14:16 | DRG 641 ==
LOC: C.ER 19:42 → C.3T 22:00
PROVIDERS: ADMIT Hospitalist; ATTEND Hospitalist
DX: R62.7 Adult failure to thrive (principal); E87.0 Hyperosmolality and hypernatremia; R64 Cachexia; F03.90 Unspecified dementia, unspecified severity, without behavioral disturbance, psychotic disturbance, mood disturbance, and anxiety; R47.01 Aphasia; Z68.1 Body mass index [BMI] 19.9 or less, adult; R32 Unspecified urinary incontinence; N18.9 Chronic kidney disease, unspecified; I12.9 Hypertensive chronic kidney disease with stage 1 through stage 4 chronic kidney disease, or unspecified chronic kidney disease; E86.0 Dehydration; E55.9 Vitamin D deficiency, unspecified; Z87.891 Personal history of nicotine dependence; Z87.820 Personal history of traumatic brain injury; Z86.73 Personal history of transient ischemic attack (TIA), and cerebral infarction without residual deficits; Z66 Do not resuscitate; Z51.5 Encounter for palliative care

== ENCOUNTER 2017-10-07 07:45 | Inpatient (IN) | payer MEDICARE ==
[2017-10-07 07:46] VITALS: BMI 14.9
[2017-10-07] MEDS ORDERED: Sodium Chloride 0.9% 1,000 ML IV ONE ×2 (08:13→09:17)
--- NOTE | 2017-10-07 08:13 | C.PDOC ---
History Of Present Illness HX LIMITED DUE TO CLIN COND 61-YEAR-OLD BIBA FOR "INCREASING DEMENTIA". UNK IF RECENT FEVER, VOMITING OR OTHER ASSOC SX. HO TBI and dementia Patient cannot provide any information as he is nonverbal and baseline AMS. OLD RECORDS: Patient had TBI ten years ago, and his health has gradually declined since then. He has been nonverbal for the past two years, and has had urinary/fecal incontinence for the past four years. Patient is able to ambulate on his own. ROS UTO EXAM MILD DIST NONTOXIC HEENT ATRAUMA PERRLA MMM LUNGS CTA B/L NO W/R/R CV RRR SINUS TACH NEURO NO GROSS FOCAL MOTOR DEF; NONVERBAL; FOCAL RESPONSE TO PAIN; UNRESPONSIVE TO COMMAND. PSYCH NONVERBAL AWAKE SKIN INTACT REMAINDER NEG Time Seen by Provider: 10/07/17 08:03 Chief Complaint (Nursing): Altered Mental Status History/Exam Limitations: Clinical Condition Past Medical History Reviewed: Historical Data, Nursing Documentation, Vital Signs Vital Signs: Last Vital Signs Temp 98.9 F 10/07/17 08:30 Pulse 129 H 10/07/17 10:04 Resp 20 10/07/17 10:04 BP 124/83 10/07/17 10:04 Pulse Ox 130 H 10/07/17 10:04 - Medical History PMH: HTN, Chronic Kidney Disease Family History: States: No Known Family Hx - Social History Hx Alcohol Use: No Hx Substance Use: No Review Of Systems Review Of Systems: ROS cannot be obtained secondary to pt's inabilty to answer questions. Physical Exam - Physical Exam Appears: Non-toxic, No Acute Distress (MILD DISTRESS), Other ( NONVERBAL AWAKE) Skin: Warm, Dry, No Rash Head: Atraumatic, Normacephalic Nose: Normal Oral Mucosa: Moist Lips: Normal Appearing Neck: Normal ROM Cardiovascular: Rhythm Regular (Tachycardic), No Murmur Respiratory: No Accessory Muscle Use, No Rales, No Rhonchi, No Wheezing Neurological/Psych: Other ( NO GROSS FOCAL MOTOR DEF; NONVERBAL; FOCAL RESPONSE TO PAIN; UNRESPONSIVE TO COMMAND. ) ED Course And Treatment - Laboratory Results Result Diagrams: 10/07/17 08:23 10/07/17 08:23 - Radiology CXR: Interpreted by Me CXR Interpretation: Yes: No Acute Disease - Other Rad ABD X-Ray: Interpreted by Me (NEG) Progress - Re-Evaluation Re-evaluation Note: 10/07/17 09:20 PER RN PT W HARD BM OUTPUT. S/P HALDOL. NOW W DECREASED AGITATION, AWAKE NARD. PERSIST SINUS TACH. DIMER PENDING 10/07/17 09:29 CODE SEPSIS ACTIVATED 10/07/17 10:08 INCR AGITATION. PERSIST SINUS TACHY UO 350 CC. PENDING DIMER 10/07/17 10:14 D/W DR BEAVER C/F ICU AWARE OF ER FINDINGS, ACCEPTS FOR ICU. PENDING DIMER, HEAD CT 10/07/17 10:35 UNABLE TO DO CTA R/O PE DUE TO ABN BUN/CREAT/ WILL TX POSSIBLE PE 10/07/17 11:04 D/W DR ALEA HAINES TOWEL ROLLING MACHINE OPERATOR WILL ADMIT - Data Reviewed Data Reviewed: Lab, Diagnostic imaging, EKG, Old records - Critical Care Citical Care: Excluding Proc Time Critical Care Time: 90 minutes - Continuity of Care Discussed patient case with:: On-call PMD-pt unassigned Discussed pt. case with senior solutions workflow consultant/specialty: Pulmonary/Crit. Care Medical Decision Making Medical Decision Making: OLD RECORDS: Patient had TBI ten years ago, and his health has gradually declined since then. He has been nonverbal for the past two years, and has had urinary/fecal incontinence for the past four years. Patient is able to ambulate on his own. Disposition Counseled Patient/Family Regarding: Studies Performed, Diagnosis - Disposition Disposition: HOSPITALIZED Disposition Time: 11:06 Condition: SERIOUS Forms: [facility] (Greenlandic) - Clinical Impression Clinical Impression: History of traumatic head injury, Dehydration, Hypernatremia, Sinus tachycardia , D-dimer, elevated - Scribe Statement The provider has reviewed the documentation as recorded by the Scribe (Gerald Quiñones) All medical record entries made by the Scribe were at my direction and personally dictated by me. I have reviewed the chart and agree that the record accurately reflects my personal performance of the history, physical exam, medical decision making, and the department course for this patient. I have also personally directed, reviewed, and agree with the discharge instructions and disposition. Decision To Admit - Pt Status Changed To: Hospital Disposition Of: Inpatient - Admit Certification Admit to Inpatient:: After my assessment, the patient will require hospitalization for at least two midnights. This is because of the severity of symptoms shown, intensity of services needed, and/or the medical risk in this patient being treated as an outpatient. - InPatient: Physician Admission Certification:: SEE NOTE - . Bed Request Type: ICU Admitting Physician: Edis Denton Patient Diagnosis: History of traumatic head injury, Dehydration, Hypernatremia, Sinus tachycardia , D-dimer, elevated
[2017-10-07 08:40] LABS: BASO % 0.2 % (0.0-2.0); LYMPH # 1.2 K/uL (1.0-4.3); LYMPH % 6.9 % (20.0-40.0); MEAN CORPUSCULAR HEMOGLOBIN 24.9 pg (27.0-31.0); MEAN CORPUSCULAR HGB CONC 31.5 g/dL (33.0-37.0); MEAN PLATELET VOLUME 12.8 fL (7.2-11.7); MONO # 0.8 K/uL (0.0-0.8); MONO % 4.2 % (0.0-10.0); NEUT # 15.9 K/uL (1.8-7.0); NEUT % 88.7 % (50.0-75.0); NRBC % 0.3 % (0.0-2.0); RBC 7.21 Mil/uL (4.40-5.90); RED CELL DISTRIBUTION WIDTH 17.9 % (11.5-14.5)
[2017-10-07 08:48] LABS: INR 1.2; PROTHROMBIN TIME 13.3 SECONDS (9.7-12.2)
[2017-10-07 08:49] LABS: HEMOGLOBIN 17.9 g/dL (12.0-18.0); MEAN CELL VOLUME 78.9 fL (80.0-94.0); PLATELET COUNT 156 K/uL (130-400); WHITE BLOOD COUNT 17.9 K/uL (4.8-10.8)
[2017-10-07 09:01] LABS: SQUAMOUS EPITHIAL < 1 /hpf (0-5); URINE BILIRUBIN NEGATIVE (NEGATIVE); URINE BLOOD NEGATIVE (NEGATIVE); URINE CLARITY Clear (Clear); URINE COLOR Yellow (YELLOW); URINE GLUCOSE (UA) NORMAL (Normal); URINE LEUKOCYTE ESTERASE NEG Leu/uL (Negative); URINE NITRATE NEGATIVE (NEGATIVE); URINE PROTEIN NEGATIVE (NEGATIVE)
[2017-10-07 09:02] LABS: TROPONIN I 0.059 ng/mL (0.00-0.120)
[2017-10-07 09:18] LABS: ALB/GLOB RATIO 0.8 (1.0-2.1); ALBUMIN 4.2 g/dL (3.5-5.0); CALCIUM 9.8 mg/dl (8.6-10.4)
[2017-10-07 09:20] LABS: VENOUS BLOOD GAS PCO2 53 mmHg (40-60); VENOUS BLOOD GAS PO2 23 mm/Hg (30-55); VENOUS BLOOD PH 7.37 (7.32-7.43)
[2017-10-07 09:24] LABS: ANISOCYTOSIS SLIGHT; BANDS 5 % (0-2); LYMPHOCYTE 7 % (20-40); MONOCYTE 5 % (0-10); NEUTROPHIL 83 % (50-75); PLATELET ESTIMATE NORMAL (NORMAL); TOTAL CELLS COUNTED 100
[2017-10-07] MEDS ORDERED: Vancomycin 1 gm/NS 200 ml 1 GM/200 ML BAG IVPB STA (09:24)
[2017-10-07] MEDS ORDERED: Aztreonam 2 GM in Sodium Chloride 0.9% 100 ML IVPB STA (09:24)
[2017-10-07 09:25] LABS: LARGE PLATELETS PRESENT; MICROCYTOSIS SLIGHT; POLYCHROMIC SLIGHT; TARGET CELLS SLIGHT
[2017-10-07] MEDS ORDERED: Sodium Chloride 0.9% 2,000 ML ONE (09:34)
[2017-10-07] MEDS ORDERED: Vancomycin 500mg/D5W 100 ml 500 MG/100 ML BAG IVPB ONE (09:34)
--- NOTE | 2017-10-07 09:55 | RAD ---
Chest x-ray single frontal view History: Altered mental status. Comparison: 08/15/2017 Findings: Hyperinflation suggestive for COPD and or emphysematous changes. Diffuse increased interstitial lung markings. Suggestion of a rib deformity of the right lateral 9th rib. Clinical correlation. Heart size within normal limits. Degenerative changes in the spine. Distended loops of bowel in the upper abdomen. Impression: Hyperinflation suggestive for COPD and or emphysematous changes. Diffuse increased interstitial lung markings. Suggestion of a rib deformity of the right lateral 9th rib. Clinical correlation. Heart size within normal limits. Degenerative changes in the spine. Distended loops of bowel in the upper abdomen.
--- NOTE | 2017-10-07 10:06 | RAD ---
Abdomen single frontal view History: Fecal impaction. Comparison: None available. Findings: Moderate to severe fecal retention in the colon. No evidence of gross obstruction. Radiopaque linear density projects over the right ana abdomen, possibly external. Clinical correlation. Degenerative changes in the spine and hips. Impression: Moderate to severe fecal retention in the colon.
[2017-10-07 10:12] LABS: MAGNESIUM 2.6 mg/dL (1.6-2.3)
[2017-10-07] MEDS ORDERED: Enoxaparin 40 mg Syringe SC STA (10:32)
[2017-10-07] MEDS ORDERED: Enoxaparin 60 mg Syringe ONE (11:21)
--- NOTE | 2017-10-07 11:40 | CT ---
PROCEDURE: CT HEAD WITHOUT CONTRAST. HISTORY: Altered mental status COMPARISON: None available. TECHNIQUE: Axial computed tomography images were obtained through the head/brain without intravenous contrast. Radiation dose: Total exam DLP = 1828 mGy-cm. This CT exam was performed using one or more of the following dose reduction techniques: Automated exposure control, adjustment of the mA and/or kV according to patient size, and/or use of iterative reconstruction technique. FINDINGS: HEMORRHAGE: No intracranial hemorrhage. BRAIN: No mass effect or edema. Scattered focal lucencies in the subcortical and periventricular white matter suggestive for chronic microvascular ischemic change. Mild atrophy. VENTRICLES: Prominent which may represent a normal pressure hydrocephalus. CALVARIUM: Unremarkable. PARANASAL SINUSES: Moderate mucosal thickening of the right maxillary sinus and ethmoid air cells. MASTOID AIR CELLS: Unremarkable as visualized. No inflammatory changes. OTHER FINDINGS: None. IMPRESSION: Chronic microvascular ischemic changes. Atrophy. Prominent ventricles which may represent an underlying normal pressure hydrocephalus. Clinical correlation. Sinus mucosal disease. If symptoms persists, consider further evaluation with MRI.
[2017-10-07] MEDS: Sodium Chloride 0.45% 1,000 ML IV SCH ×2 (12:31→21:00)
--- NOTE | 2017-10-07 12:50 | CP.CCUPN ---
CCU Subjective - Physician Review Events Since Last Encounter (Free Text): 10/07/17 12:50 Chief complaint: Altered mental status History of present illness: 61-year-old male with a history of severe dementia, some form of brain injury, nonverbal, recently hospitalized, and also he was placed LTAC recently. Recently patient is at home, he was doing okay, but for the 3 days patient did not have any bowel movements as per patient's , she was giving different Medication to Go to Bathroom, but He Did Not Have Any BM, but Did Have a Small Amount. Patient's is giving him Ativan as well as Depakote for the agitation, ended today he was not doing well. He was not eating anything for 3 days, today she was not able to drink anything , because of worsening condition she called ambulance and brought to the emergency room at [facility]. The initial paracentesis was called because does have a lactate high, but there was no other symptoms of infection including no fever noted. He does not have any cough. Patient not able to communicate with any symptoms. Past medical history: He has a history of renal failure hypertension dementia. Patient was also given antiparkinson medication Surgical history none Allergic history none Family history noncontributory Current medications reviewed in Social history former smoker Review of system: Patient is unresponsive and nonverbal, not able to elicit any information. Spoke to the patient's in detail on the phone. According to the the patient is nonverbal, but able to eat with assistance. He is also demented, urinary and fecal incontinence noted On examination: Vital signs tachycardic. Blood pressure stable. Patient is responding to deep stability Chest good air entry bilaterally, regular heart sound, nontender abdomen, extremities edema, negative seizure Dryness of mucous membranes noted Labs reviewed in Elevated WBC, elevated sodium level very severely elevated, BUN/creatinine is also elevated. Elevated d-dimer noted. Chest x-ray clear lung boland. Urine analysis negative. CT of the head showing evidence of chronic atrophy, hydrocephalus Assessment and recommendation: 61-year-old male with a history of dementia, hospital hydrocephalus, now worsening mental status, admitted with acute change in mental status. Likely severe dehydration, patient is not taking anything for 2-3 days. urine analyses and the chest x-ray is clear, the source is unclear, may be there is no evidence of any infection at this time. Severe dehydration with renal insufficiency secondary to poor intake. We'll continue the IV hydration. Monitor the electrolytes. Keep the patient nothing by mouth for now. Plan the neurological evaluation. Underlying hydrocephalus, and Parkinson disease. We'll follow the patient. CCU Objective - Vital Signs / Intake & Output Vital Signs (Last 4 hours): Vital Signs Temp Pulse Resp BP Pulse Ox 10/07/17 11:22 97.9 F 126 H 19 136/76 100 10/07/17 10:04 129 H 20 124/83 130 H 10/07/17 09:12 126 H 19 120/79 99 Intake and Output (Last 8hrs): Intake & Output 10/06/17 10/07/17 10/07/17 22:59 06:59 14:59 Weight 100 lb - Medications Active Medications: Active Medications Generic Name Dose Route Start Last Admin Trade Name Freq PRN Reason Stop Dose Admin Sodium Chloride 1,000 mls @ 125 mls/hr 10/07/17 12:15 10/07/17 12:31 Sodium Chloride 0.45% IV 125 mls/hr .Q8H TETE Administration - Patient Studies Lab Studies: Lab Studies 10/07/17 10/07/17 10/07/17 Range/Units 10:05 10:01 09:14 WBC (4.8-10.8) K/uL RBC (4.40-5.90) Mil/uL Hgb (12.0-18.0) g/dL Hct (35.0-51.0) % MCV (80.0-94.0) fL MCH (27.0-31.0) pg MCHC (33.0-37.0) g/dL RDW (11.5-14.5) % Plt Count (130-400) K/uL MPV (7.2-11.7) fL Neut % (Auto) (50.0-75.0) % Lymph % (Auto) (20.0-40.0) % [place] % (Auto) (0.0-10.0) % Eos % (Auto) (0.0-4.0) % Baso % (Auto) (0.0-2.0) % Neut # (1.8-7.0) K/uL Lymph # (1.0-4.3) K/uL [place] # (0.0-0.8) K/uL Eos # (0.0-0.7) K/uL Baso # (0.0-0.2) K/uL Neutrophils % (Manual) (50-75) % Band Neutrophils % (0-2) % Lymphocytes % (Manual) (20-40) % Monocytes % (Manual) (0-10) % Platelet Estimate (NORMAL) Large Platelets Polychromasia Anisocytosis (manual) Microcytosis (manual) Target Cells PT (9.7-12.2) SECONDS INR APTT (21-34) SECONDS D-Dimer, Quantitative 1420 H pO2 23 L (30-55) mm/Hg VBG pH 7.37 (7.32-7.43) VBG pCO2 53 (40-60) mmHg VBG HCO3 26.4 mmol/L VBG Total CO2 32.2 H (22-28) mmol/L VBG O2 Sat (Calc) 41.6 (40-65) % VBG Base Excess 4.0 H (0.0-2.0) mmol/L VBG Potassium 4.2 (3.6-5.2) mmol/L Glucose 151 H (75-110) mg/dl Lactate 4.3 H* (0.7-2.1) mmol/L Crit Value Called To Dr pitt Crit Value Called By Heather juarez special population paraprofessional Crit Value Read Back Y Blood Gas Notified Time 923 Sodium 180.0 H* (132-148) mmol/L Potassium (3.6-5.2) mmol/L Chloride 138.0 H (98-107) mmol/L Carbon Dioxide (22-30) mmol/L Anion Gap (10-20) BUN (9-20) mg/dL Creatinine (0.8-1.5) mg/dL Est GFR ( Amer) Est GFR (Non-Af Amer) Random Glucose (75-110) mg/dL Calcium (8.6-10.4) mg/dl Phosphorus (2.5-4.5) mg/dL Magnesium (1.6-2.3) mg/dL Total Bilirubin (0.2-1.3) mg/dL AST (17-59) U/L ALT (21-72) U/L Alkaline Phosphatase (38-126) U/L Troponin I (0.00-0.120) ng/mL Total Protein (6.3-8.3) g/dL Albumin (3.5-5.0) g/dL Globulin (2.2-3.9) gm/dL Albumin/Globulin Ratio (1.0-2.1) Venous Blood Potassium 4.2 (3.6-5.2) mmol/L Urine Color (YELLOW) Urine Clarity (Clear) Urine pH (5.0-8.0) Ur Specific [place] (1.003-1.030) Urine Protein (NEGATIVE) mg/dL Urine Glucose (UA) (Normal) mg/dL Urine Ketones (NEGATIVE) mg/dL Urine Blood (NEGATIVE) Urine Nitrate (NEGATIVE) Urine Bilirubin (NEGATIVE) Urine Urobilinogen (0.2-1.0) mg/dL Ur Leukocyte Esterase (Negative) John/uL Urine WBC (Auto) (0-5) /hpf Urine RBC (Auto) (0-3) /hpf Ur Squamous Epith Cells (0-5) /hpf Hyaline Casts (0-2) /lpf Influenza Typ A,B (EIA) Negative for flu a/b (NEGATIVE) 10/07/17 10/07/17 10/07/17 Range/Units 08:52 08:23 08:23 WBC (4.8-10.8) K/uL RBC (4.40-5.90) Mil/uL Hgb (12.0-18.0) g/dL Hct (35.0-51.0) % MCV (80.0-94.0) fL MCH (27.0-31.0) pg MCHC (33.0-37.0) g/dL RDW (11.5-14.5) % Plt Count (130-400) K/uL MPV (7.2-11.7) fL Neut % (Auto) (50.0-75.0) % Lymph % (Auto) (20.0-40.0) % [place] % (Auto) (0.0-10.0) % Eos % (Auto) (0.0-4.0) % Baso % (Auto) (0.0-2.0) % Neut # (1.8-7.0) K/uL Lymph # (1.0-4.3) K/uL [place] # (0.0-0.8) K/uL Eos # (0.0-0.7) K/uL Baso # (0.0-0.2) K/uL Neutrophils % (Manual) (50-75) % Band Neutrophils % (0-2) % Lymphocytes % (Manual) (20-40) % Monocytes % (Manual) (0-10) % Platelet Estimate (NORMAL) Large Platelets Polychromasia Anisocytosis (manual) Microcytosis (manual) Target Cells PT 13.3 H (9.7-12.2) SECONDS INR 1.2 APTT 26 (21-34) SECONDS D-Dimer, Quantitative Cancelled pO2 (30-55) mm/Hg VBG pH (7.32-7.43) VBG pCO2 (40-60) mmHg VBG HCO3 mmol/L VBG Total CO2 (22-28) mmol/L VBG O2 Sat (Calc) (40-65) % VBG Base Excess (0.0-2.0) mmol/L VBG Potassium (3.6-5.2) mmol/L Glucose (75-110) mg/dl Lactate (0.7-2.1) mmol/L Crit Value Called To Crit Value Called By Crit Value Read Back Blood Gas Notified Time Sodium 181 H* D (132-148) mmol/L Potassium 3.6 (3.6-5.2) mmol/L Chloride 134 H (98-107) mmol/L Carbon Dioxide 29 (22-30) mmol/L Anion Gap 23 H (10-20) BUN 48 H (9-20) mg/dL Creatinine 1.9 H (0.8-1.5) mg/dL Est GFR ( Amer) 44 Est GFR (Non-Af Amer) 36 Random Glucose 200 H (75-110) mg/dL Calcium 9.8 (8.6-10.4) mg/dl Phosphorus 4.6 H (2.5-4.5) mg/dL Magnesium 2.6 H (1.6-2.3) mg/dL Total Bilirubin 1.6 H (0.2-1.3) mg/dL AST 35 (17-59) U/L ALT 19 L D (21-72) U/L Alkaline Phosphatase 115 (38-126) U/L Troponin I 0.0590 (0.00-0.120) ng/mL Total Protein 9.3 H (6.3-8.3) g/dL Albumin 4.2 (3.5-5.0) g/dL Globulin 5.1 H (2.2-3.9) gm/dL Albumin/Globulin Ratio 0.8 L (1.0-2.1) Venous Blood Potassium (3.6-5.2) mmol/L Urine Color Yellow (YELLOW) Urine Clarity Clear (Clear) Urine pH 5.0 (5.0-8.0) Ur Specific [place] 1.019 (1.003-1.030) Urine Protein Negative (NEGATIVE) mg/dL Urine Glucose (UA) Normal (Normal) mg/dL Urine Ketones Negative (NEGATIVE) mg/dL Urine Blood Negative (NEGATIVE) Urine Nitrate Negative (NEGATIVE) Urine Bilirubin Negative (NEGATIVE) Urine Urobilinogen 2.0 (0.2-1.0) mg/dL Ur Leukocyte Esterase Neg (Negative) John/uL Urine WBC (Auto) 1 (0-5) /hpf Urine RBC (Auto) 1 (0-3) /hpf Ur Squamous Epith Cells < 1 (0-5) /hpf Hyaline Casts 3-5 H (0-2) /lpf Influenza Typ A,B (EIA) (NEGATIVE) 10/07/17 Range/Units 08:23 WBC 17.9 H D (4.8-10.8) K/uL RBC 7.21 H (4.40-5.90) Mil/uL Hgb 17.9 D (12.0-18.0) g/dL Hct 56.9 H (35.0-51.0) % MCV 78.9 L D (80.0-94.0) fL MCH 24.9 L (27.0-31.0) pg MCHC 31.5 L (33.0-37.0) g/dL RDW 17.9 H (11.5-14.5) % Plt Count 156 (130-400) K/uL MPV 12.8 H (7.2-11.7) fL Neut % (Auto) 88.7 H (50.0-75.0) % Lymph % (Auto) 6.9 L (20.0-40.0) % [place] % (Auto) 4.2 (0.0-10.0) % Eos % (Auto) 0.0 (0.0-4.0) % Baso % (Auto) 0.2 (0.0-2.0) % Neut # 15.9 H (1.8-7.0) K/uL Lymph # 1.2 (1.0-4.3) K/uL [place] # 0.8 (0.0-0.8) K/uL Eos # 0.0 (0.0-0.7) K/uL Baso # 0.0 (0.0-0.2) K/uL Neutrophils % (Manual) 83 H (50-75) % Band Neutrophils % 5 H (0-2) % Lymphocytes % (Manual) 7 L (20-40) % Monocytes % (Manual) 5 (0-10) % Platelet Estimate Normal (NORMAL) Large Platelets Present Polychromasia Slight Anisocytosis (manual) Slight Microcytosis (manual) Slight Target Cells Slight PT (9.7-12.2) SECONDS INR APTT (21-34) SECONDS D-Dimer, Quantitative pO2 (30-55) mm/Hg VBG pH (7.32-7.43) VBG pCO2 (40-60) mmHg VBG HCO3 mmol/L VBG Total CO2 (22-28) mmol/L VBG O2 Sat (Calc) (40-65) % VBG Base Excess (0.0-2.0) mmol/L VBG Potassium (3.6-5.2) mmol/L Glucose (75-110) mg/dl Lactate (0.7-2.1) mmol/L Crit Value Called To Crit Value Called By Crit Value Read Back Blood Gas Notified Time Sodium (132-148) mmol/L Potassium (3.6-5.2) mmol/L Chloride (98-107) mmol/L Carbon Dioxide (22-30) mmol/L Anion Gap (10-20) BUN (9-20) mg/dL Creatinine (0.8-1.5) mg/dL Est GFR ( Amer) Est GFR (Non-Af Amer) Random Glucose (75-110) mg/dL Calcium (8.6-10.4) mg/dl Phosphorus (2.5-4.5) mg/dL Magnesium (1.6-2.3) mg/dL Total Bilirubin (0.2-1.3) mg/dL AST (17-59) U/L ALT (21-72) U/L Alkaline Phosphatase (38-126) U/L Troponin I (0.00-0.120) ng/mL Total Protein (6.3-8.3) g/dL Albumin (3.5-5.0) g/dL Globulin (2.2-3.9) gm/dL Albumin/Globulin Ratio (1.0-2.1) Venous Blood Potassium (3.6-5.2) mmol/L Urine Color (YELLOW) Urine Clarity (Clear) Urine pH (5.0-8.0) Ur Specific [place] (1.003-1.030) Urine Protein (NEGATIVE) mg/dL Urine Glucose (UA) (Normal) mg/dL Urine Ketones (NEGATIVE) mg/dL Urine Blood (NEGATIVE) Urine Nitrate (NEGATIVE) Urine Bilirubin (NEGATIVE) Urine Urobilinogen (0.2-1.0) mg/dL Ur Leukocyte Esterase (Negative) John/uL Urine WBC (Auto) (0-5) /hpf Urine RBC (Auto) (0-3) /hpf Ur Squamous Epith Cells (0-5) /hpf Hyaline Casts (0-2) /lpf Influenza Typ A,B (EIA) (NEGATIVE) Laboratory Results - last 24 hr 10/07/17 10/07/17 10/07/17 08:23 08:23 08:23 WBC 17.9 H D RBC 7.21 H Hgb 17.9 D Hct 56.9 H MCV 78.9 L D MCH 24.9 L MCHC 31.5 L RDW 17.9 H Plt Count 156 MPV 12.8 H Neut % (Auto) 88.7 H Lymph % (Auto) 6.9 L [place] % (Auto) 4.2 Eos % (Auto) 0.0 Baso % (Auto) 0.2 Neut # 15.9 H Lymph # 1.2 [place] # 0.8 Eos # 0.0 Baso # 0.0 Neutrophils % (Manual) 83 H Band Neutrophils % 5 H Lymphocytes % (Manual) 7 L Monocytes % (Manual) 5 Platelet Estimate Normal Large Platelets Present Polychromasia Slight Anisocytosis (manual) Slight Microcytosis (manual) Slight Target Cells Slight PT 13.3 H INR 1.2 APTT 26 D-Dimer, Quantitative Cancelled pO2 VBG pH VBG pCO2 VBG HCO3 VBG Total CO2 VBG O2 Sat (Calc) VBG Base Excess VBG Potassium Glucose Lactate Crit Value Called To Crit Value Called By Crit Value Read Back Blood Gas Notified Time Sodium 181 H* D Potassium 3.6 Chloride 134 H Carbon Dioxide 29 Anion Gap 23 H BUN 48 H Creatinine 1.9 H Est GFR ( Amer) 44 Est GFR (Non-Af Amer) 36 Random Glucose 200 H Calcium 9.8 Phosphorus 4.6 H Magnesium 2.6 H Total Bilirubin 1.6 H AST 35 ALT 19 L D Alkaline Phosphatase 115 Troponin I 0.0590 Total Protein 9.3 H Albumin 4.2 Globulin 5.1 H Albumin/Globulin Ratio 0.8 L Venous Blood Potassium Urine Color Urine Clarity Urine pH Ur Specific [place] Urine Protein Urine Glucose (UA) Urine Ketones Urine Blood Urine Nitrate Urine Bilirubin Urine Urobilinogen Ur Leukocyte Esterase Urine WBC (Auto) Urine RBC (Auto) Ur Squamous Epith Cells Hyaline Casts Influenza Typ A,B (EIA) 10/07/17 10/07/17 10/07/17 08:52 09:14 10:01 WBC RBC Hgb Hct MCV MCH MCHC RDW Plt Count MPV Neut % (Auto) Lymph % (Auto) [place] % (Auto) Eos % (Auto) Baso % (Auto) Neut # Lymph # [place] # Eos # Baso # Neutrophils % (Manual) Band Neutrophils % Lymphocytes % (Manual) Monocytes % (Manual) Platelet Estimate Large Platelets Polychromasia Anisocytosis (manual) Microcytosis (manual) Target Cells PT INR APTT D-Dimer, Quantitative 1420 H pO2 23 L VBG pH 7.37 VBG pCO2 53 VBG HCO3 26.4 VBG Total CO2 32.2 H VBG O2 Sat (Calc) 41.6 VBG Base Excess 4.0 H VBG Potassium 4.2 Glucose 151 H Lactate 4.3 H* Crit Value Called To Dr pitt Crit Value Called By Heather juarez special population paraprofessional Crit Value Read Back Y Blood Gas Notified Time 923 Sodium 180.0 H* Potassium Chloride 138.0 H Carbon Dioxide Anion Gap BUN Creatinine Est GFR ( Amer) Est GFR (Non-Af Amer) Random Glucose Calcium Phosphorus Magnesium Total Bilirubin AST ALT Alkaline Phosphatase Troponin I Total Protein Albumin Globulin Albumin/Globulin Ratio Venous Blood Potassium 4.2 Urine Color Yellow Urine Clarity Clear Urine pH 5.0 Ur Specific [place] 1.019 Urine Protein Negative Urine Glucose (UA) Normal Urine Ketones Negative Urine Blood Negative Urine Nitrate Negative Urine Bilirubin Negative Urine Urobilinogen 2.0 Ur Leukocyte Esterase Neg Urine WBC (Auto) 1 Urine RBC (Auto) 1 Ur Squamous Epith Cells < 1 Hyaline Casts 3-5 H Influenza Typ A,B (EIA) 10/07/17 10:05 WBC RBC Hgb Hct MCV MCH MCHC RDW Plt Count MPV Neut % (Auto) Lymph % (Auto) [place] % (Auto) Eos % (Auto) Baso % (Auto) Neut # Lymph # [place] # Eos # Baso # Neutrophils % (Manual) Band Neutrophils % Lymphocytes % (Manual) Monocytes % (Manual) Platelet Estimate Large Platelets Polychromasia Anisocytosis (manual) Microcytosis (manual) Target Cells PT INR APTT D-Dimer, Quantitative pO2 VBG pH VBG pCO2 VBG HCO3 VBG Total CO2 VBG O2 Sat (Calc) VBG Base Excess VBG Potassium Glucose Lactate Crit Value Called To Crit Value Called By Crit Value Read Back Blood Gas Notified Time Sodium Potassium Chloride Carbon Dioxide Anion Gap BUN Creatinine Est GFR ( Amer) Est GFR (Non-Af Amer) Random Glucose Calcium Phosphorus Magnesium Total Bilirubin AST ALT Alkaline Phosphatase Troponin I Total Protein Albumin Globulin Albumin/Globulin Ratio Venous Blood Potassium Urine Color Urine Clarity Urine pH Ur Specific [place] Urine Protein Urine Glucose (UA) Urine Ketones Urine Blood Urine Nitrate Urine Bilirubin Urine Urobilinogen Ur Leukocyte Esterase Urine WBC (Auto) Urine RBC (Auto) Ur Squamous Epith Cells Hyaline Casts Influenza Typ A,B (EIA) Negative for flu a/b EKG/Cardiology Studies: Cardiology / EKG Studies 10/07/17 08:13 ELECTROCARDIOGRAM Stat Comment: Mode Of Transportation: BED Reason For Exam: AMS Fingerstick Blood Sugar Results: 149 Critical Care Progress Note - Nutrition Nutrition: Nutrition Category Date Time Status NPO Diet [DIET] Diets 10/07/17 Dinner Active
--- NOTE | 2017-10-07 14:05 | CP.PCM.HP ---
History of Present Illness - History of Present Illness History of Present Illness: CC: "Weakness, Neurological Deficit " HPI: Weakness 61 year old male with a Hx of head injury in 2006 who was brought in by ambulance for increasing dementia. Per previous charts patients is the primary caregiver. At the time of admission wasn't present. Patient is non-verbal and also suffers from incontinence. Unable to asses patient's curent situation as caregiver wasn't present at the time of admission. ROS: Unable to acertain due to patient's inablity to speak. Patient is non-verbal and was not at bedside during the encounter therefore HPI as per ED and chart check. 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 - HEENT Hx HEENT Problems: No - RENAL Hx Chronic Kidney Disease: Yes - ENDOCRINE/METABOLIC Hx Endocrine Disorders: No - HEMATOLOGICAL/ONCOLOGICAL Hx Blood Disorders: No - INTEGUMENTARY Hx Dermatological Problems: No - MUSCULOSKELETAL/RHEUMATOLOGICAL Hx Musculoskeletal Disorders: Yes Hx Falls: Yes - GASTROINTESTINAL Hx Gastrointestinal Disorders: Yes Hx Constipation: Yes - GENITOURINARY/GYNECOLOGICAL Hx Genitourinary Disorders: Yes Hx Incontinence: Yes - PSYCHIATRIC Hx Substance Use: No - SURGICAL HISTORY Hx Surgeries: Yes Hx Herniorrhaphy: Yes - ANESTHESIA Hx Anesthesia: Yes Hx Anesthesia Reactions: No Hx Malignant Hyperthermia: No Meds Allergies/Adverse Reactions: Allergies Allergy/AdvReac Type Severity Reaction Status Date / Time No Known Allergies Allergy Verified 08/07/17 20:25 Physical Exam - Head Exam Head Exam: ATRAUMATIC, NORMAL INSPECTION Additional comments: temporal bossing appreciated. - Eye Exam Eye Exam: Normal appearance. absent: EOMI, PERRL Pupil Exam: Fixed, Miosis. absent: Irregular, NORMAL ACCOMODATION, Unequal - ENT Exam ENT Exam: Mucous Membranes Moist, Normal Oropharynx - Neck Exam Neck exam: Negative for: Lymphadenopathy, Thyromegaly - Respiratory Exam Respiratory Exam: Clear to Auscultation Bilateral, NORMAL BREATHING PATTERN. absent: Chest Wall Tenderness, Prolonged Expiratory Phase, Respiratory Distress - Cardiovascular Exam Cardiovascular Exam: REGULAR RHYTHM, +S1, +S2 - GI/Abdominal Exam GI & Abdominal Exam: Normal Bowel Sounds, Soft - Exam Additional comments: toussaint in place. - Extremities Exam Extremities exam: Positive for: normal inspection. Negative for: joint swelling , pedal edema, tenderness - Back Exam Back exam: NORMAL INSPECTION. absent: paraspinal tenderness - Neurological Exam Neurological exam: Altered - Psychiatric Exam Psychiatric exam: Normal Affect - Skin Skin Exam: Dry, Intact, Normal Color Results - Vital Signs Recent Vital Signs: Last Vital Signs Temp 98 F 10/07/17 12:00 Pulse 118 H 10/07/17 13:10 Resp 15 10/07/17 13:10 BP 136/76 10/07/17 11:22 Pulse Ox 100 10/07/17 13:10 - Labs Result Diagrams: 10/07/17 08:23 10/07/17 08:23 Labs: Laboratory Results - last 24 hr 10/07/17 10/07/17 10/07/17 08:23 08:23 08:23 WBC 17.9 H D RBC 7.21 H Hgb 17.9 D Hct 56.9 H MCV 78.9 L D MCH 24.9 L MCHC 31.5 L RDW 17.9 H Plt Count 156 MPV 12.8 H Neut % (Auto) 88.7 H Lymph % (Auto) 6.9 L [place] % (Auto) 4.2 Eos % (Auto) 0.0 Baso % (Auto) 0.2 Neut # 15.9 H Lymph # 1.2 [place] # 0.8 Eos # 0.0 Baso # 0.0 Neutrophils % (Manual) 83 H Band Neutrophils % 5 H Lymphocytes % (Manual) 7 L Monocytes % (Manual) 5 Platelet Estimate Normal Large Platelets Present Polychromasia Slight Anisocytosis (manual) Slight Microcytosis (manual) Slight Target Cells Slight PT 13.3 H INR 1.2 APTT 26 D-Dimer, Quantitative Cancelled pO2 VBG pH VBG pCO2 VBG HCO3 VBG Total CO2 VBG O2 Sat (Calc) VBG Base Excess VBG Potassium Glucose Lactate Crit Value Called To Crit Value Called By Crit Value Read Back Blood Gas Notified Time Sodium 181 H* D Potassium 3.6 Chloride 134 H Carbon Dioxide 29 Anion Gap 23 H BUN 48 H Creatinine 1.9 H Est GFR ( Amer) 44 Est GFR (Non-Af Amer) 36 Random Glucose 200 H Calcium 9.8 Phosphorus 4.6 H Magnesium 2.6 H Total Bilirubin 1.6 H AST 35 ALT 19 L D Alkaline Phosphatase 115 Troponin I 0.0590 Total Protein 9.3 H Albumin 4.2 Globulin 5.1 H Albumin/Globulin Ratio 0.8 L Venous Blood Potassium Urine Color Urine Clarity Urine pH Ur Specific [place] Urine Protein Urine Glucose (UA) Urine Ketones Urine Blood Urine Nitrate Urine Bilirubin Urine Urobilinogen Ur Leukocyte Esterase Urine WBC (Auto) Urine RBC (Auto) Ur Squamous Epith Cells Hyaline Casts Influenza Typ A,B (EIA) 10/07/17 10/07/17 10/07/17 08:52 09:14 10:01 WBC RBC Hgb Hct MCV MCH MCHC RDW Plt Count MPV Neut % (Auto) Lymph % (Auto) [place] % (Auto) Eos % (Auto) Baso % (Auto) Neut # Lymph # [place] # Eos # Baso # Neutrophils % (Manual) Band Neutrophils % Lymphocytes % (Manual) Monocytes % (Manual) Platelet Estimate Large Platelets Polychromasia Anisocytosis (manual) Microcytosis (manual) Target Cells PT INR APTT D-Dimer, Quantitative 1420 H pO2 23 L VBG pH 7.37 VBG pCO2 53 VBG HCO3 26.4 VBG Total CO2 32.2 H VBG O2 Sat (Calc) 41.6 VBG Base Excess 4.0 H VBG Potassium 4.2 Glucose 151 H Lactate 4.3 H* Crit Value Called To Dr pitt Crit Value Called By Heather juarez desk clerk Crit Value Read Back Y Blood Gas Notified Time 923 Sodium 180.0 H* Potassium Chloride 138.0 H Carbon Dioxide Anion Gap BUN Creatinine Est GFR ( Amer) Est GFR (Non-Af Amer) Random Glucose Calcium Phosphorus Magnesium Total Bilirubin AST ALT Alkaline Phosphatase Troponin I Total Protein Albumin Globulin Albumin/Globulin Ratio Venous Blood Potassium 4.2 Urine Color Yellow Urine Clarity Clear Urine pH 5.0 Ur Specific [place] 1.019 Urine Protein Negative Urine Glucose (UA) Normal Urine Ketones Negative Urine Blood Negative Urine Nitrate Negative Urine Bilirubin Negative Urine Urobilinogen 2.0 Ur Leukocyte Esterase Neg Urine WBC (Auto) 1 Urine RBC (Auto) 1 Ur Squamous Epith Cells < 1 Hyaline Casts 3-5 H Influenza Typ A,B (EIA) 10/07/17 10:05 WBC RBC Hgb Hct MCV MCH MCHC RDW Plt Count MPV Neut % (Auto) Lymph % (Auto) [place] % (Auto) Eos % (Auto) Baso % (Auto) Neut # Lymph # [place] # Eos # Baso # Neutrophils % (Manual) Band Neutrophils % Lymphocytes % (Manual) Monocytes % (Manual) Platelet Estimate Large Platelets Polychromasia Anisocytosis (manual) Microcytosis (manual) Target Cells PT INR APTT D-Dimer, Quantitative pO2 VBG pH VBG pCO2 VBG HCO3 VBG Total CO2 VBG O2 Sat (Calc) VBG Base Excess VBG Potassium Glucose Lactate Crit Value Called To Crit Value Called By Crit Value Read Back Blood Gas Notified Time Sodium Potassium Chloride Carbon Dioxide Anion Gap BUN Creatinine Est GFR ( Amer) Est GFR (Non-Af Amer) Random Glucose Calcium Phosphorus Magnesium Total Bilirubin AST ALT Alkaline Phosphatase Troponin I Total Protein Albumin Globulin Albumin/Globulin Ratio Venous Blood Potassium Urine Color Urine Clarity Urine pH Ur Specific [place] Urine Protein Urine Glucose (UA) Urine Ketones Urine Blood Urine Nitrate Urine Bilirubin Urine Urobilinogen Ur Leukocyte Esterase Urine WBC (Auto) Urine RBC (Auto) Ur Squamous Epith Cells Hyaline Casts Influenza Typ A,B (EIA) Negative for flu a/b Assessment & Plan - Assessment and Plan (Free Text) Plan: Weakness Assessment and Plan: secondary to Failure to thrive Started on 1/2NS @ 125mls/hr During hospitalization 03/26 the patient was recommended to receive a PEG tube by GI. Initially the patient's signed the consent, however the day of the procedure she refused and the PEG was never placed. Head CT: chornic microvascular changes, atrophy, prominent ventricles, sinus disease Chest -X ray: hyperinflation of the lungs, diffuse increased interstitial lung markings, rib deformity and spine degenerative changes. Abdomen xray: fecal retention Status: Acute Hypernatremia Assessment and Plan: Possibly secondary to severe dehydration 1/2NS@ 125mls/hr Goal: to drop by <10 points in 24 hours * Stop fluids if sodium level drops to 170-160 within 24 hours * Monitor Na levels closely * F/U repeat CMP at 16:00 Status: Acute Leukocytosis Assessment and Plan: WBC: 17.9 UA: 3-5 Hyaline casts Vanco 1gm IVPB q24H Zosyn 2.25mg IVPB 86H 1/2NS @150mls/hr Pending blood culture Pending urine culture Status: Acute ELIDA (acute kidney injury) Assessment and Plan: Possibly secondary to severe dehydration, malnutrition BUN/CR: 48/1.9 1/2NS@125mls/hr Status: Acute History of traumatic head injury Assessment and Plan: Worsening neurologic deficit Non-verbal for the past two years Urinary and fecal incontinence Not oriented to place and time Status: Acute Prophylactic measure Assessment and Plan: SCD
[2017-10-07] MEDS: Piperacill/Tazo 2.25gm in Dex 2.25 GM/50 ML BAG IVPB SCH ×2 (15:02→21:15)
[2017-10-07 17:45] LABS: ALB/GLOB RATIO 0.9 (1.0-2.1); ALBUMIN 3.5 g/dL (3.5-5.0); CALCIUM 8.5 mg/dl (8.6-10.4); MAGNESIUM 2.2 mg/dL (1.6-2.3)
[2017-10-07 17:53] LABS: BASO % 0.2 % (0.0-2.0); EOS % 0.2 % (0.0-4.0); LYMPH # 1.3 K/uL (1.0-4.3); LYMPH % 9.4 % (20.0-40.0); MEAN CORPUSCULAR HEMOGLOBIN 24.6 pg (27.0-31.0); MEAN CORPUSCULAR HGB CONC 31.1 g/dL (33.0-37.0); MEAN PLATELET VOLUME 12.3 fL (7.2-11.7); MONO # 0.8 K/uL (0.0-0.8); MONO % 5.5 % (0.0-10.0); NEUT % 84.7 % (50.0-75.0); NRBC % 0.1 % (0.0-2.0); RBC 6.16 Mil/uL (4.40-5.90); RED CELL DISTRIBUTION WIDTH 17.6 % (11.5-14.5); WHITE BLOOD COUNT 14.1 K/uL (4.8-10.8)
[2017-10-07 17:59] LABS: HEMOGLOBIN 15.1 g/dL (12.0-18.0)
[2017-10-07 18:00] LABS: PLATELET COUNT 99 K/uL (130-400)
[2017-10-07 18:17] LABS: BANDS 5 % (0-2); EOSINOPHIL 1 % (0-4); LYMPHOCYTE 7 % (20-40); MONOCYTE 6 % (0-10); NEUTROPHIL 80 % (50-75); REACTIVE LYMPHOCYTES 1 % (0-0); TOTAL CELLS COUNTED 100
[2017-10-07 18:18] LABS: MICROCYTOSIS SLIGHT; PLATELET ESTIMATE DECREASED (NORMAL)
[2017-10-07 18:19] LABS: HYPOCHROMIC SLIGHT; LARGE PLATELETS PRESENT; TARGET CELLS SLIGHT; TOXIC GRANULATION PRESENT
[2017-10-07 18:20] LABS: ANISOCYTOSIS SLIGHT
[2017-10-08] MEDS: Piperacill/Tazo 2.25gm in Dex 2.25 GM/50 ML BAG IVPB SCH ×3 (06:15→21:53)
[2017-10-08 06:35] LABS: BASO % 0.2 % (0.0-2.0); EOS # 0.1 K/uL (0.0-0.7); EOS % 0.9 % (0.0-4.0); HEMOGLOBIN 13.8 g/dL (12.0-18.0); LYMPH # 0.9 K/uL (1.0-4.3); LYMPH % 9.9 % (20.0-40.0); MEAN CELL VOLUME 78.7 fL (80.0-94.0); MEAN CORPUSCULAR HEMOGLOBIN 24.8 pg (27.0-31.0); MEAN CORPUSCULAR HGB CONC 31.6 g/dL (33.0-37.0); MEAN PLATELET VOLUME 12.9 fL (7.2-11.7); MONO # 0.4 K/uL (0.0-0.8); MONO % 4.5 % (0.0-10.0); NEUT # 7.9 K/uL (1.8-7.0); NEUT % 84.5 % (50.0-75.0); PLATELET COUNT 83 K/uL (130-400); RBC 5.57 Mil/uL (4.40-5.90); RED CELL DISTRIBUTION WIDTH 17.7 % (11.5-14.5); WHITE BLOOD COUNT 9.3 K/uL (4.8-10.8)
[2017-10-08] MEDS: Sodium Chloride 0.45% 1,000 ML IV SCH ×4 (07:00→21:54)
[2017-10-08 07:03] LABS: ALB/GLOB RATIO 0.8 (1.0-2.1); ALBUMIN 3.2 g/dL (3.5-5.0); ALT/SGPT 22 U/L (21-72); AST/SGOT 38 U/L (17-59); BLOOD UREA NITROGEN 40 mg/dL (9-20); CALCIUM 7.8 mg/dl (8.6-10.4); GFR AFRICAN-AMERICAN > 60; GFR NON-AFRICAN AMERICAN 51; MAGNESIUM 2.2 mg/dL (1.6-2.3)
[2017-10-08 09:13] LABS: BANDS 6 % (0-2); LYMPHOCYTE 11 % (20-40); MONOCYTE 6 % (0-10); NEUTROPHIL 77 % (50-75); PLATELET ESTIMATE DECREASED (NORMAL); TOTAL CELLS COUNTED 100
[2017-10-08 09:14] LABS: ANISOCYTOSIS SLIGHT; TARGET CELLS SLIGHT
[2017-10-08] MEDS: Vancomycin 1 gm/NS 200 ml 1 GM/200 ML BAG IVPB SCH (12:36)
--- NOTE | 2017-10-08 17:17 | CARD ---
APPROVED REPORT EKG Measurement Heart [id number] <Conclusion> Sinus tachycardia with short ME Nonspecific ST and T wave abnormality Abnormal ECG
[2017-10-08] MEDS ORDERED: Mineral Oil Enema 135 ml RC ONE (18:20)
[2017-10-08] MEDS ORDERED: Dextrose 50% VIAL Inj (50 ml) IV STA (18:21)
--- NOTE | 2017-10-08 18:37 | CP.PCM.PN ---
Subjective - Date & Time of Evaluation Date of Evaluation: 10/08/17 Time of Evaluation: 18:33 - Subjective Subjective: non verbal grunting moving spont Objective - Vital Signs/Intake and Output Vital Signs (last 24 hours): Temp Pulse Resp BP Pulse Ox 98.4 F 90 16 124/91 H 98 10/08/17 12:00 10/08/17 14:50 10/08/17 14:50 10/08/17 14:10 10/08/17 14:40 Intake and Output: 10/08/17 10/08/17 06:59 18:59 Intake Total 1425 1650 Output Total 470 930 Balance 955 720 - Medications Medications: Current Medications Sodium Chloride (Sodium Chloride 0.45%) 1,000 mls @ 125 mls/hr IV .Q8H [facility] Last Admin: 10/08/17 12:45 Dose: Not Given Vancomycin/Sodium Chloride (Vancomycin 1 Gm/Ns 200 Ml) 1 gm in 200 mls @ 166.7 mls/hr IVPB Q24H [facility] Stop: 10/13/17 10:01 Last Admin: 10/08/17 12:36 Dose: 166.7 mls/hr Piperacillin Sod/Tazobactam Sod (Zosyn 2.25 Gm Iv Premix) 2.25 gm in 50 mls @ 100 mls/hr IVPB Q8H [facility] Last Admin: 10/08/17 14:57 Dose: 100 mls/hr Lorazepam (Ativan) 2 mg IVP Q6H PRN PRN Reason: Anxiety Pantoprazole Sodium (Protonix Inj) 40 mg IVP DAILY [facility] Last Admin: 10/08/17 12:01 Dose: 40 mg - Labs Labs: 10/08/17 06:25 10/08/17 06:23 PT 13.3 SECONDS (9.7-12.2) H 10/07/17 08:23 INR 1.2 10/07/17 08:23 APTT 26 SECONDS (21-34) 10/07/17 08:23 - Constitutional Appears: Older Than Stated Age, Confused, Cachectic, Chronically Ill - Head Exam Head Exam: ATRAUMATIC - Eye Exam Eye Exam: absent: EOMI Pupil Exam: PERRL - ENT Exam ENT Exam: Mucous Membranes Dry - Respiratory Exam Respiratory Exam: NORMAL BREATHING PATTERN. absent: Accessory Muscle Use, Clear to Ausculation Bilateral Additional comments: coarse bs - Cardiovascular Exam Cardiovascular Exam: Tachycardia, +S1, +S2 - GI/Abdominal Exam GI & Abdominal Exam: Soft, Normal Bowel Sounds. absent: Tenderness, Rebound - Neurological Exam Neurological Exam: absent: Alert, Awake, Oriented x3 Assessment and Plan - Assessment and Plan (Free Text) Assessment: 1. change in ms multifactorial due to dementia and acute Hypernatremia 2. Hypernatremia 3. TBI 4. dementia 5. thrombocytopenia 6. presumed infection unk source 7. fecal impaction 8. Acute renal failure resolved PLAN: ivf ns for now slowly improving at appropriate rate consult renal acute renal failure improved watch platelets hold heparin scd's ng tube due to somnolence and change in ms unable to swallow glucerna fleet mineral oil if not working plan soap suds on abx
[2017-10-09] MEDS: Sodium Chloride 0.45% 1,000 ML IV SCH ×4 (02:55→13:28)
[2017-10-09] MEDS: Piperacill/Tazo 2.25gm in Dex 2.25 GM/50 ML BAG IVPB SCH ×3 (05:55→21:46)
[2017-10-09 07:41] LABS: BASO % 0.3 % (0.0-2.0); EOS # 0.1 K/uL (0.0-0.7); EOS % 0.7 % (0.0-4.0); HEMOGLOBIN 12.4 g/dL (12.0-18.0); LYMPH # 0.7 K/uL (1.0-4.3); LYMPH % 6.3 % (20.0-40.0); MEAN CELL VOLUME 78.5 fL (80.0-94.0); MEAN CORPUSCULAR HEMOGLOBIN 25.3 pg (27.0-31.0); MEAN CORPUSCULAR HGB CONC 32.2 g/dL (33.0-37.0); MEAN PLATELET VOLUME 12.6 fL (7.2-11.7); MONO # 0.6 K/uL (0.0-0.8); MONO % 4.9 % (0.0-10.0); NEUT % 87.8 % (50.0-75.0); PLATELET COUNT 65 K/uL (130-400); RBC 4.89 Mil/uL (4.40-5.90); RED CELL DISTRIBUTION WIDTH 17.5 % (11.5-14.5); WHITE BLOOD COUNT 11.4 K/uL (4.8-10.8)
[2017-10-09 07:57] LABS: ALB/GLOB RATIO 0.9 (1.0-2.1); ALT/SGPT 22 U/L (21-72); AST/SGOT 53 U/L (17-59); BLOOD UREA NITROGEN 23 mg/dL (9-20); CALCIUM 7.4 mg/dl (8.6-10.4); GFR AFRICAN-AMERICAN > 60; GFR NON-AFRICAN AMERICAN > 60; MAGNESIUM 2.1 mg/dL (1.6-2.3)
[2017-10-09 09:17] LABS: BANDS 4 % (0-2); LYMPHOCYTE 8 % (20-40); MONOCYTE 4 % (0-10); NEUTROPHIL 84 % (50-75); TOTAL CELLS COUNTED 100
[2017-10-09 09:20] LABS: ANISOCYTOSIS SLIGHT; PLATELET ESTIMATE DECREASED (NORMAL)
[2017-10-09] MEDS: Vancomycin 1 gm/NS 200 ml 1 GM/200 ML BAG IVPB SCH (10:15)
--- NOTE | 2017-10-09 12:45 | CP.PCM.CON ---
History of Present Illness - History of Present Illness History of Present Illness: RFC: hypernatremia History from chart, pt non verbal 61 year old male with a Hx of head injury in 2006 who was brought in by ambulance for increasing dementia. Per previous charts patients is the primary caregiver. At the time of admission wasn't present. Patient is non-verbal and also suffers from incontinence. Unable to asses patient's curent situation as caregiver wasn't present at the time of admission. ROS: Unable to acertain due to patient's inablity to speak. Na improved from 167 to 159 meq/dl w/ iv fluids. ongoind tube feeds. 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 - HEENT Hx HEENT Problems: No - RENAL Hx Chronic Kidney Disease: Yes - ENDOCRINE/METABOLIC Hx Endocrine Disorders: No - HEMATOLOGICAL/ONCOLOGICAL Hx Blood Disorders: No - INTEGUMENTARY Hx Dermatological Problems: No - MUSCULOSKELETAL/RHEUMATOLOGICAL Hx Musculoskeletal Disorders: Yes Hx Falls: Yes - GASTROINTESTINAL Hx Gastrointestinal Disorders: Yes Hx Constipation: Yes - GENITOURINARY/GYNECOLOGICAL Hx Genitourinary Disorders: Yes Hx Incontinence: Yes - PSYCHIATRIC Hx Substance Use: No - SURGICAL HISTORY Hx Surgeries: Yes Hx Herniorrhaphy: Yes - ANESTHESIA Hx Anesthesia: Yes Hx Anesthesia Reactions: No Hx Malignant Hyperthermia: No Meds Allergies/Adverse Reactions: Allergies Allergy/AdvReac Type Severity Reaction Status Date / Time No Known Allergies Allergy Verified 08/07/17 20:25 - Medications Medications: Current Medications Vancomycin/Sodium Chloride (Vancomycin 1 Gm/Ns 200 Ml) 1 gm in 200 mls @ 166.7 mls/hr IVPB Q24H [facility] Stop: 10/13/17 10:01 Last Admin: 10/09/17 10:15 Dose: 166.7 mls/hr Piperacillin Sod/Tazobactam Sod (Zosyn 2.25 Gm Iv Premix) 2.25 gm in 50 mls @ 100 mls/hr IVPB Q8H [facility] Last Admin: 10/09/17 05:55 Dose: 100 mls/hr Potassium Chloride (Potassium Chloride 10 Meq/100 Ml) 10 meq in 100 mls @ 100 mls/hr IVPB ONCE ONE Stop: 10/09/17 13:29 Last Admin: 10/09/17 11:51 Dose: 100 mls/hr Potassium Chloride (Potassium Chloride 10 Meq/100 Ml) 10 meq in 100 mls @ 100 mls/hr IVPB ONCE ONE Stop: 10/09/17 14:29 Sodium Chloride (Sodium Chloride 0.45%) 1,000 mls @ 60 mls/hr IV .[id number] [facility] Lorazepam (Ativan) 2 mg IVP Q6H PRN PRN Reason: Anxiety Last Admin: 10/09/17 05:10 Dose: 2 mg Pantoprazole Sodium (Protonix Inj) 40 mg IVP DAILY [facility] Last Admin: 10/09/17 09:09 Dose: 40 mg Physical Exam - Constitutional Appears: No Acute Distress, Unkempt, Older Than Stated Age, Cachectic, Chronically Ill - Head Exam Head Exam: NORMAL INSPECTION - Eye Exam Eye Exam: Normal appearance, PERRL - ENT Exam ENT Exam: Mucous Membranes Dry - Neck Exam Neck exam: Positive for: Normal Inspection - Respiratory Exam Respiratory Exam: Clear to Auscultation Bilateral, NORMAL BREATHING PATTERN - Cardiovascular Exam Cardiovascular Exam: REGULAR RHYTHM, RRR - GI/Abdominal Exam GI & Abdominal Exam: Normal Bowel Sounds, Soft - Extremities Exam Extremities exam: Positive for: normal inspection - Neurological Exam Additional comments: not responding to verbal tactile stimuli. not following commands. unable to assess - Skin Skin Exam: Dry, Intact, Warm Results - Vital Signs Recent Vital Signs: Last Vital Signs Temp 97.9 F 10/09/17 12:00 Pulse 80 10/09/17 12:00 Resp 17 10/09/17 12:00 BP 93/63 L 10/09/17 12:00 Pulse Ox 100 10/09/17 12:00 - Labs Result Diagrams: 10/09/17 07:34 10/09/17 07:34 Labs: Laboratory Results - last 24 hr 10/08/17 10/08/17 10/08/17 12:12 18:12 19:07 WBC RBC Hgb Hct MCV MCH MCHC RDW Plt Count MPV Neut % (Auto) Lymph % (Auto) [place] % (Auto) Eos % (Auto) Baso % (Auto) Neut # Lymph # [place] # Eos # Baso # Neutrophils % (Manual) Band Neutrophils % Lymphocytes % (Manual) Monocytes % (Manual) Platelet Estimate Anisocytosis (manual) Sodium Potassium Chloride Carbon Dioxide Anion Gap BUN Creatinine Est GFR ( Amer) Est GFR (Non-Af Amer) POC Glucose (mg/dL) 85 77 99 Random Glucose Calcium Phosphorus Magnesium Total Bilirubin AST ALT Alkaline Phosphatase Total Protein Albumin Globulin Albumin/Globulin Ratio 10/09/17 10/09/17 10/09/17 00:03 06:53 07:34 WBC 11.4 H RBC 4.89 Hgb 12.4 Hct 38.4 MCV 78.5 L MCH 25.3 L MCHC 32.2 L RDW 17.5 H Plt Count 65 L MPV 12.6 H Neut % (Auto) 87.8 H Lymph % (Auto) 6.3 L [place] % (Auto) 4.9 Eos % (Auto) 0.7 Baso % (Auto) 0.3 Neut # 10.0 H Lymph # 0.7 L [place] # 0.6 Eos # 0.1 Baso # 0.0 Neutrophils % (Manual) 84 H Band Neutrophils % 4 H Lymphocytes % (Manual) 8 L Monocytes % (Manual) 4 Platelet Estimate Decreased L Anisocytosis (manual) Slight Sodium Potassium Chloride Carbon Dioxide Anion Gap BUN Creatinine Est GFR ( Amer) Est GFR (Non-Af Amer) POC Glucose (mg/dL) 94 123 H Random Glucose Calcium Phosphorus Magnesium Total Bilirubin AST ALT Alkaline Phosphatase Total Protein Albumin Globulin Albumin/Globulin Ratio 10/09/17 10/09/17 07:34 11:38 WBC RBC Hgb Hct MCV MCH MCHC RDW Plt Count MPV Neut % (Auto) Lymph % (Auto) [place] % (Auto) Eos % (Auto) Baso % (Auto) Neut # Lymph # [place] # Eos # Baso # Neutrophils % (Manual) Band Neutrophils % Lymphocytes % (Manual) Monocytes % (Manual) Platelet Estimate Anisocytosis (manual) Sodium 157 H Potassium 3.3 L Chloride 127 H Carbon Dioxide 25 Anion Gap 8 L BUN 23 H Creatinine 1.0 Est GFR ( Amer) > 60 Est GFR (Non-Af Amer) > 60 POC Glucose (mg/dL) 106 Random Glucose 126 H Calcium 7.4 L Phosphorus 2.0 L Magnesium 2.1 Total Bilirubin 1.5 H AST 53 ALT 22 Alkaline Phosphatase 84 Total Protein 6.4 Albumin 3.0 L Globulin 3.5 Albumin/Globulin Ratio 0.9 L Assessment & Plan (1) Dehydration Status: Acute (2) History of traumatic head injury Status: Acute (3) Hypernatremia Status: Acute (4) Leucocytosis Status: Acute - Assessment and Plan (Free Text) Assessment: dehydration/ poor oral intake - lower iv fluids. agree w/ tube feeds potassium phosphate ordered
[2017-10-09] MEDS ORDERED: Potassium Phosphate 3 mmol/ml Inj IV ONE (12:46)
--- NOTE | 2017-10-09 14:41 | CP.PCM.PN ---
Subjective - Date & Time of Evaluation Date of Evaluation: 10/09/17 Time of Evaluation: 06:41 - Subjective Subjective: Patient non communicative and grunting today upon examination. Unable to ascertain ROS due to current clinical condition. Objective - Vital Signs/Intake and Output Vital Signs (last 24 hours): Temp Pulse Resp BP Pulse Ox 97.9 F 80 17 93/63 L 100 10/09/17 12:00 10/09/17 12:00 10/09/17 12:00 10/09/17 12:00 10/09/17 12:00 Intake and Output: 10/09/17 10/09/17 06:59 18:59 Intake Total 1975 Output Total 1050 Balance 925 - Medications Medications: Current Medications Vancomycin/Sodium Chloride (Vancomycin 1 Gm/Ns 200 Ml) 1 gm in 200 mls @ 166.7 mls/hr IVPB Q24H [facility] Stop: 10/13/17 10:01 Last Admin: 10/09/17 10:15 Dose: 166.7 mls/hr Piperacillin Sod/Tazobactam Sod (Zosyn 2.25 Gm Iv Premix) 2.25 gm in 50 mls @ 100 mls/hr IVPB Q8H [facility] Last Admin: 10/09/17 13:36 Dose: 100 mls/hr Sodium Chloride (Sodium Chloride 0.45%) 1,000 mls @ 60 mls/hr IV .[id number] [facility] Last Admin: 10/09/17 13:28 Dose: Not Given Potassium Phosphate 7.5 mmole/ (Dextrose) 252.5 mls @ 84.167 mls/hr IV ONCE ONE Stop: 10/09/17 17:59 Lorazepam (Ativan) 2 mg IVP Q6H PRN PRN Reason: Anxiety Last Admin: 10/09/17 05:10 Dose: 2 mg Pantoprazole Sodium (Protonix Inj) 40 mg IVP DAILY [facility] Last Admin: 10/09/17 09:09 Dose: 40 mg - Labs Labs: 10/09/17 07:34 10/09/17 07:34 PT 13.3 SECONDS (9.7-12.2) H 10/07/17 08:23 INR 1.2 10/07/17 08:23 APTT 26 SECONDS (21-34) 10/07/17 08:23 - Constitutional Appears: Cachectic - Head Exam Head Exam: ATRAUMATIC, NORMAL INSPECTION, NORMOCEPHALIC Additional comments: temporal bossing present. - Eye Exam Eye Exam: EOMI, Normal appearance, PERRL. absent: Periorbital tenderness Pupil Exam: NORMAL ACCOMODATION, PERRL. absent: Irregular, Unequal - ENT Exam ENT Exam: Mucous Membranes Moist, Normal Exam, Normal Oropharynx - Neck Exam Neck Exam: Full ROM, Normal Inspection. absent: Lymphadenopathy, Thyromegaly - Respiratory Exam Respiratory Exam: Clear to Ausculation Bilateral, NORMAL BREATHING PATTERN. absent: Chest Wall Tenderness, Prolonged Expiratory Phase, Respiratory Distress - Cardiovascular Exam Cardiovascular Exam: REGULAR RHYTHM, RRR, +S1, +S2. absent: Rubs - GI/Abdominal Exam GI & Abdominal Exam: Soft, Normal Bowel Sounds. absent: Rigid, Hyperactive Bowel Sounds - Extremities Exam Extremities Exam: absent: Joint Swelling, Pedal Edema, Tenderness - Back Exam Back Exam: NORMAL INSPECTION. absent: CVA tenderness (L), CVA tenderness (R), paraspinal tenderness - Neurological Exam Neurological Exam: Altered - Psychiatric Exam Psychiatric exam: Normal Affect, Normal Mood - Skin Skin Exam: Dry, Intact, Normal Color Assessment and Plan - Assessment and Plan (Free Text) Plan: Weakness Assessment and Plan: secondary to Failure to thrive Fluids changed to 1/2NS @ 60mls/hr During hospitalization 03/26 the patient was recommended to receive a PEG tube by GI. Initially the patient's signed the consent, however the day of the procedure she refused and the PEG was never placed. Head CT: chornic microvascular changes, atrophy, prominent ventricles, sinus disease Chest -X ray: hyperinflation of the lungs, diffuse increased interstitial lung markings, rib deformity and spine degenerative changes. Abdomen xray: fecal retention Status: Acute Hypernatremia Assessment and Plan: 157 Today Possibly secondary to severe dehydration Decreased to 1/2NS@ 60mls/hr today. Goal: to drop by <10 points in 24 hours * Stop fluids if sodium level drops to 170-160 within 24 hours * Monitor Na levels closely * F/U repeat CMP at 16:00 Status: Acute Leukocytosis Assessment and Plan: WBC: 11.4. Trending down UA: 3-5 Hyaline casts Vanco 1gm IVPB q24H Zosyn 2.25mg IVPB 86H Changed to 1/2NS @60 mls/hr blood culture (-) x24 hours urine culture (-) Status: Acute ELIDA (acute kidney injury) Assessment and Plan: Possibly secondary to severe dehydration, malnutrition BUN/CR: 23/1. Resolving. 1/2NS@60mls/hr Status: Acute Constipation -Soap and water enema ordered. -Will keep feedings at 30mls/hr until he has a bowel movement. Ultimate goal 60mls/hr. History of traumatic head injury Assessment and Plan: Worsening neurologic deficit Non-verbal for the past two years Urinary and fecal incontinence Not oriented to place and time Status: Acute Prophylactic measure Assessment and Plan: SCD
[2017-10-09] MEDS ORDERED: POTASSIUM PHOSPHATE IV ONE (15:00)
[2017-10-09] MEDS ORDERED: WATER IV ONE (15:00)
[2017-10-09] MEDS ORDERED: DEXTROSE IV ONE (15:00)
[2017-10-10] MEDS: Piperacill/Tazo 2.25gm in Dex 2.25 GM/50 ML BAG IVPB SCH ×3 (05:23→22:23)
[2017-10-10] MEDS: Sodium Chloride 0.45% 1,000 ML IV SCH ×3 (07:09→22:25)
[2017-10-10 08:48] LABS: BASO % 0.1 % (0.0-2.0); EOS # 0.2 K/uL (0.0-0.7); EOS % 2.1 % (0.0-4.0); HEMOGLOBIN 13.5 g/dL (12.0-18.0); LYMPH # 0.8 K/uL (1.0-4.3); LYMPH % 7.8 % (20.0-40.0); MEAN CORPUSCULAR HEMOGLOBIN 25.9 pg (27.0-31.0); MEAN CORPUSCULAR HGB CONC 34.3 g/dL (33.0-37.0); MEAN PLATELET VOLUME 10.4 fL (7.2-11.7); MONO # 0.5 K/uL (0.0-0.8); MONO % 4.8 % (0.0-10.0); NEUT # 9.1 K/uL (1.8-7.0); NEUT % 85.2 % (50.0-75.0); NRBC % 0.3 % (0.0-2.0); RBC 5.22 Mil/uL (4.40-5.90); RED CELL DISTRIBUTION WIDTH 16.7 % (11.5-14.5); WHITE BLOOD COUNT 10.7 K/uL (4.8-10.8)
[2017-10-10 08:54] LABS: MEAN CELL VOLUME 75.7 fL (80.0-94.0); PLATELET COUNT 74 K/uL (130-400)
[2017-10-10 09:00] LABS: ALB/GLOB RATIO 0.8 (1.0-2.1); ALBUMIN 3.1 g/dL (3.5-5.0); ALT/SGPT 25 U/L (21-72); AST/SGOT 43 U/L (17-59); BLOOD UREA NITROGEN 17 mg/dL (9-20); CALCIUM 7.8 mg/dl (8.6-10.4); GFR AFRICAN-AMERICAN > 60; GFR NON-AFRICAN AMERICAN > 60; MAGNESIUM 2.4 mg/dL (1.6-2.3)
--- NOTE | 2017-10-10 10:28 | CP.PCM.PN ---
<[place] - Last Filed: 10/10/17 17:40> Subjective - Date & Time of Evaluation Date of Evaluation: 10/10/17 Time of Evaluation: 08:28 - Subjective Subjective: Patient non communicative and grunting today upon examination. Unable to ascertain ROS due to current clinical condition. Objective - Vital Signs/Intake and Output Vital Signs (last 24 hours): Temp Pulse Resp BP Pulse Ox 98.9 F 94 H 18 91/58 L 96 10/10/17 08:00 10/10/17 08:00 10/10/17 08:00 10/10/17 08:00 10/10/17 08:00 Intake and Output: 10/10/17 10/10/17 06:59 18:59 Intake Total 1130 Output Total 1000 Balance 130 - Medications Medications: Current Medications Piperacillin Sod/Tazobactam Sod (Zosyn 2.25 Gm Iv Premix) 2.25 gm in 50 mls @ 100 mls/hr IVPB Q8H [facility] Last Admin: 10/10/17 05:23 Dose: 100 mls/hr Sodium Chloride (Sodium Chloride 0.45%) 1,000 mls @ 60 mls/hr IV .[id number] [facility] Last Admin: 10/10/17 07:09 Dose: Not Given Lorazepam (Ativan) 2 mg IVP Q6H PRN PRN Reason: Anxiety Last Admin: 10/09/17 16:16 Dose: 2 mg Pantoprazole Sodium (Protonix Inj) 40 mg IVP DAILY [facility] Last Admin: 10/10/17 09:44 Dose: 40 mg - Labs Labs: 10/10/17 08:23 10/10/17 08:23 PT 13.3 SECONDS (9.7-12.2) H 10/07/17 08:23 INR 1.2 10/07/17 08:23 APTT 26 SECONDS (21-34) 10/07/17 08:23 - Constitutional Appears: Cachectic, Chronically Ill - Head Exam Head Exam: NORMAL INSPECTION, NORMOCEPHALIC - Eye Exam Eye Exam: Normal appearance, PERRL Pupil Exam: NORMAL ACCOMODATION, PERRL - ENT Exam ENT Exam: Mucous Membranes Moist, Normal Oropharynx - Neck Exam Neck Exam: absent: Lymphadenopathy, Thyromegaly - Respiratory Exam Respiratory Exam: Clear to Ausculation Bilateral, NORMAL BREATHING PATTERN - Cardiovascular Exam Cardiovascular Exam: REGULAR RHYTHM, +S1, +S2 - GI/Abdominal Exam GI & Abdominal Exam: Soft, Normal Bowel Sounds - Extremities Exam Extremities Exam: Normal Inspection. absent: Joint Swelling, Pedal Edema - Back Exam Back Exam: NORMAL INSPECTION. absent: CVA tenderness (L), CVA tenderness (R), paraspinal tenderness - Neurological Exam Neurological Exam: Altered, Awake - Psychiatric Exam Psychiatric exam: Normal Affect, Normal Mood - Skin Skin Exam: Dry, Intact Assessment and Plan - Assessment and Plan (Free Text) Plan: Weakness Assessment and Plan: secondary to Failure to thrive Continue 1/2NS @ 60mls/hr During hospitalization 03/26 the patient was recommended to receive a PEG tube by GI. Initially the patient's signed the consent, however the day of the procedure she refused and the PEG was never placed. Head CT: chornic microvascular changes, atrophy, prominent ventricles, sinus disease Chest -X ray: hyperinflation of the lungs, diffuse increased interstitial lung markings, rib deformity and spine degenerative changes. Abdomen xray: fecal retention Status: Acute Hypernatremia Assessment and Plan: 150 Today Possibly secondary to severe dehydration Continue to 1/2NS@ 60mls/hr today. Goal: to drop by <10 points in 24 hours * Monitor Na levels closely * F/U repeat CMP Status: Acute Leukocytosis Assessment and Plan: WBC: 10.7. Trending down UA: 3-5 Hyaline casts Vanco 1gm IVPB q24H Zosyn 2.25mg IVPB 86H Changed to 1/2NS @60 mls/hr blood culture (-) x48 hours urine culture (-) Status: Acute ELIDA (acute kidney injury) Assessment and Plan: Possibly secondary to severe dehydration, malnutrition BUN/CR: 17/.9. Resolving. 1/2NS@60mls/hr Status: Acute Constipation -Miralax started today. Will continue to monitor. -Will keep feedings at 30mls/hr until he has a bowel movement. Ultimate goal 60mls/hr. History of traumatic head injury Assessment and Plan: Worsening neurologic deficit Non-verbal for the past two years Urinary and fecal incontinence Not oriented to place and time Status: Acute Prophylactic measure Assessment and Plan: SCD <Leroy [place] - Last Filed: 10/14/17 21:27> Objective - Vital Signs/Intake and Output Vital Signs (last 24 hours): Temp Pulse Resp BP Pulse Ox 98.9 F 98 H 18 109/63 98 10/10/17 08:00 10/10/17 14:00 10/10/17 14:00 10/10/17 14:00 10/10/17 14:00 Intake and Output: 10/10/17 10/10/17 06:59 18:59 Intake Total 1130 Output Total 1000 Balance 130 - Medications Medications: Current Medications Piperacillin Sod/Tazobactam Sod (Zosyn 2.25 Gm Iv Premix) 2.25 gm in 50 mls @ 100 mls/hr IVPB Q8H [facility] Last Admin: 10/10/17 14:00 Dose: 100 mls/hr Sodium Chloride (Sodium Chloride 0.45%) 1,000 mls @ 60 mls/hr IV .[id number] [facility] Last Admin: 10/10/17 12:35 Dose: 60 mls/hr Lactulose (Enulose) 20 gm NG ONCE ONE Stop: 10/10/17 17:16 Lorazepam (Ativan) 2 mg IVP Q6H PRN PRN Reason: Anxiety Last Admin: 10/10/17 13:52 Dose: 2 mg Pantoprazole Sodium (Protonix Inj) 40 mg IVP DAILY [facility] Last Admin: 10/10/17 09:44 Dose: 40 mg Polyethylene Glycol (Miralax) 17 gm NG DAILY [facility] - Labs Labs: 10/10/17 08:23 10/10/17 08:23 PT 13.3 SECONDS (9.7-12.2) H 10/07/17 08:23 INR 1.2 10/07/17 08:23 APTT 26 SECONDS (21-34) 10/07/17 08:23 Attending/Attestation - Attestation I have personally seen and examined this patient.: Yes I have fully participated in the care of the patient.: Yes I have reviewed all pertinent clinical information, including history, physical exam and plan: Yes Notes (Text): Patient was seen and examined.He is confused, Has NG tube/getting feeding Not in discomfort. Continue IV hydration and feeding via NG Discussed with his . She takes care of him at home.His dementia is getting worse.He is incontinent of bowel and bladder. Ambulate at home. As per he was not eating likely due to constipation.He wants to take care of him at home. Doesn't want PEG placement. Agree to try NG feeding until he start eating. She was explained about his worsening dementia and poor prognosis. She agreed to DNR and DNI during phone conversation. Later she changed her mind.He is full code. We will get palliative care consult. No fever.no leukocytosis,negative cultures. I will stop vancomycin. Patient had right hip mild redness,no signs of infection.Repeat chest x ray. continue zosyn for now.He was admitted with leukocytosis with bands lactulose ordered for constipation. We will add daily Miralax for his constipation His home meds including Depakote on hold. He is sleeping . 10/10/17 17:21
[2017-10-10 11:34] LABS: BANDS 6 % (0-2); EOSINOPHIL 3 % (0-4); LYMPHOCYTE 6 % (20-40); MONOCYTE 2 % (0-10); NEUTROPHIL 82 % (50-75); REACTIVE LYMPHOCYTES 1 % (0-0); TOTAL CELLS COUNTED 100
[2017-10-10 11:35] LABS: PLATELET ESTIMATE DECREASED (NORMAL)
[2017-10-10 11:36] LABS: ANISOCYTOSIS SLIGHT
--- NOTE | 2017-10-10 15:58 | CP.PCM.PN ---
Subjective - Date & Time of Evaluation Date of Evaluation: 10/10/17 Time of Evaluation: 14:40 - Subjective Subjective: on tube feeds Na improved at bedside unable to obtain ROS due to dementia Objective - Vital Signs/Intake and Output Vital Signs (last 24 hours): Temp Pulse Resp BP Pulse Ox 98.9 F 94 H 18 91/58 L 96 10/10/17 08:00 10/10/17 08:00 10/10/17 08:00 10/10/17 08:00 10/10/17 08:00 Intake and Output: 10/10/17 10/10/17 06:59 18:59 Intake Total 1130 Output Total 1000 Balance 130 - Medications Medications: Current Medications Piperacillin Sod/Tazobactam Sod (Zosyn 2.25 Gm Iv Premix) 2.25 gm in 50 mls @ 100 mls/hr IVPB Q8H [facility] Last Admin: 10/10/17 14:00 Dose: 100 mls/hr Sodium Chloride (Sodium Chloride 0.45%) 1,000 mls @ 60 mls/hr IV .[id number] [facility] Last Admin: 10/10/17 12:35 Dose: 60 mls/hr Lactulose (Enulose) 20 gm NG ONCE ONE Stop: 10/10/17 15:56 Lorazepam (Ativan) 2 mg IVP Q6H PRN PRN Reason: Anxiety Last Admin: 10/10/17 13:52 Dose: 2 mg Pantoprazole Sodium (Protonix Inj) 40 mg IVP DAILY [facility] Last Admin: 10/10/17 09:44 Dose: 40 mg Polyethylene Glycol (Miralax) 17 gm NG DAILY [facility] - Labs Labs: 10/10/17 08:23 10/10/17 08:23 PT 13.3 SECONDS (9.7-12.2) H 10/07/17 08:23 INR 1.2 10/07/17 08:23 APTT 26 SECONDS (21-34) 10/07/17 08:23 - Constitutional Appears: Confused, Chronically Ill - Head Exam Head Exam: ATRAUMATIC, NORMAL INSPECTION - Eye Exam Eye Exam: EOMI, Normal appearance - ENT Exam ENT Exam: Mucous Membranes Moist - Neck Exam Neck Exam: Full ROM. absent: Lymphadenopathy - Respiratory Exam Respiratory Exam: Decreased Breath Sounds. absent: Accessory Muscle Use - Cardiovascular Exam Cardiovascular Exam: REGULAR RHYTHM. absent: Rubs - GI/Abdominal Exam GI & Abdominal Exam: Distended. absent: Guarding, Tenderness - Neurological Exam Neurological Exam: Awake. absent: Oriented x3 - Psychiatric Exam Psychiatric exam: Agitated Assessment and Plan - Assessment and Plan (Free Text) Assessment: hypernatremia due to poor po intake improved with feeding/fluid will continue to monitor
[2017-10-11] MEDS: Piperacill/Tazo 2.25gm in Dex 2.25 GM/50 ML BAG IVPB SCH ×3 (05:27→21:00)
[2017-10-11] MEDS: Sodium Chloride 0.45% 1,000 ML IV SCH ×2 (06:33→15:01)
--- NOTE | 2017-10-11 09:33 | CP.PCM.PN ---
<OmarKenian - Last Filed: 10/11/17 17:48> Subjective - Date & Time of Evaluation Date of Evaluation: 10/11/17 Time of Evaluation: 06:33 - Subjective Subjective: Patient non communicative and grunting today upon examination. Unable to ascertain ROS due to current clinical condition. Objective - Vital Signs/Intake and Output Vital Signs (last 24 hours): Temp Pulse Resp BP Pulse Ox 98.4 F 95 H 18 115/71 97 10/11/17 04:00 10/11/17 04:00 10/11/17 04:00 10/11/17 04:00 10/11/17 04:00 Intake and Output: 10/11/17 10/11/17 06:59 18:59 Intake Total 1120 Output Total 700 Balance 420 - Medications Medications: Current Medications Piperacillin Sod/Tazobactam Sod (Zosyn 2.25 Gm Iv Premix) 2.25 gm in 50 mls @ 100 mls/hr IVPB Q8H [facility] Last Admin: 10/11/17 05:27 Dose: 100 mls/hr Sodium Chloride (Sodium Chloride 0.45%) 1,000 mls @ 60 mls/hr IV .[id number] [facility] Last Admin: 10/11/17 06:33 Dose: 60 mls/hr Lorazepam (Ativan) 2 mg IVP Q6H PRN PRN Reason: Anxiety Last Admin: 10/10/17 13:52 Dose: 2 mg Pantoprazole Sodium (Protonix Inj) 40 mg IVP DAILY [facility] Last Admin: 10/10/17 09:44 Dose: 40 mg Polyethylene Glycol (Miralax) 17 gm NG DAILY [facility] - Labs Labs: 10/10/17 08:23 10/10/17 08:23 PT 13.3 SECONDS (9.7-12.2) H 10/07/17 08:23 INR 1.2 10/07/17 08:23 APTT 26 SECONDS (21-34) 10/07/17 08:23 - Head Exam Head Exam: ATRAUMATIC, NORMAL INSPECTION, NORMOCEPHALIC - Eye Exam Eye Exam: EOMI, Normal appearance, PERRL. absent: Periorbital tenderness Pupil Exam: NORMAL ACCOMODATION, PERRL. absent: Irregular, Unequal - ENT Exam ENT Exam: Mucous Membranes Moist, Normal Oropharynx - Neck Exam Neck Exam: Normal Inspection. absent: Lymphadenopathy, Thyromegaly - Respiratory Exam Respiratory Exam: Clear to Ausculation Bilateral, NORMAL BREATHING PATTERN. absent: Prolonged Expiratory Phase, Respiratory Distress - Cardiovascular Exam Cardiovascular Exam: REGULAR RHYTHM, +S1, +S2 - GI/Abdominal Exam GI & Abdominal Exam: Soft, Normal Bowel Sounds. absent: Rigid, Hyperactive Bowel Sounds - Extremities Exam Extremities Exam: Full ROM, Normal Inspection. absent: Joint Swelling, Pedal Edema, Tenderness - Back Exam Back Exam: NORMAL INSPECTION. absent: CVA tenderness (L), CVA tenderness (R), paraspinal tenderness - Neurological Exam Neurological Exam: Altered - Psychiatric Exam Psychiatric exam: Normal Affect, Normal Mood - Skin Skin Exam: Dry, Intact, Normal Color, Warm Assessment and Plan - Assessment and Plan (Free Text) Plan: Weakness Assessment and Plan: secondary to Failure to thrive Continue 1/2NS @ 60mls/hr During hospitalization 03/26 the patient was recommended to receive a PEG tube by GI. Initially the patient's signed the consent, however the day of the procedure she refused and the PEG was never placed. Continue NG feedings @ 30 cc/hr per Dietitian reccomendations. Ultimate goal is 60cc/hr. Head CT: chornic microvascular changes, atrophy, prominent ventricles, sinus disease Chest -X ray: hyperinflation of the lungs, diffuse increased interstitial lung markings, rib deformity and spine degenerative changes. Abdomen xray: fecal retention Status: Acute Hypernatremia Assessment and Plan: 150 Today Possibly secondary to severe dehydration Continue to 1/2NS@ 60mls/hr today. Goal: to drop by <10 points in 24 hours * Monitor Na levels closely Status: Acute Leukocytosis Assessment and Plan: WBC: 10.7. Trending down UA: 3-5 Hyaline casts Vanco 1gm IVPB q24H Zosyn 2.25mg IVPB 86H Changed to 1/2NS @60 mls/hr blood culture (-) x72 hours urine culture (-) Status: Acute ELIDA (acute kidney injury) Assessment and Plan: Possibly secondary to severe dehydration, malnutrition BUN/CR: 13/.7. Resolving. 1/2NS@60mls/hr Status: Acute Constipation -Continue Miralax. Will continue to monitor. -Will keep feedings at 30mls/hr until he has a bowel movement. Ultimate goal 60mls/hr. History of traumatic head injury Assessment and Plan: Worsening neurologic deficit Non-verbal for the past two years Urinary and fecal incontinence Not oriented to place and time Status: Acute Prophylactic measure Assessment and Plan: SCD <Leroy [place] - Last Filed: 10/14/17 21:34> Objective - Vital Signs/Intake and Output Vital Signs (last 24 hours): Temp Pulse Resp BP Pulse Ox 98.4 F 85 18 133/76 100 10/14/17 08:39 10/14/17 15:15 10/14/17 15:15 10/14/17 15:15 10/14/17 15:15 Intake and Output: 10/14/17 10/15/17 18:59 06:59 Intake Total 840 Output Total 500 Balance 340 - Medications Medications: Current Medications Potassium Chloride 10 meq/ (Sodium Chloride) 1,005 mls @ 60 mls/hr IV .[id number] [facility] Last Admin: 10/14/17 09:33 Dose: 60 mls/hr Lorazepam (Ativan) 1 mg IVP Q6H PRN PRN Reason: Anxiety Last Admin: 10/14/17 11:04 Dose: 1 mg Pantoprazole Sodium (Protonix Ec Tab) 40 mg PO DAILY [facility] Last Admin: 10/14/17 09:32 Dose: 40 mg Polyethylene Glycol (Miralax) 17 gm NG DAILY [facility] Last Admin: 10/14/17 09:31 Dose: Not Given - Labs Labs: 10/12/17 11:45 10/13/17 11:45 PT 13.3 SECONDS (9.7-12.2) H 10/07/17 08:23 INR 1.2 10/07/17 08:23 APTT 26 SECONDS (21-34) 10/07/17 08:23 Attending/Attestation - Attestation I have personally seen and examined this patient.: Yes I have fully participated in the care of the patient.: Yes I have reviewed all pertinent clinical information, including history, physical exam and plan: Yes Notes (Text): Seen and examined discussed with the resident I agree with the resident's assessment and the plan
--- NOTE | 2017-10-11 09:42 | RAD ---
Chest x-ray single frontal view History: Leukocytosis. Comparison: 10/07/2014 Findings: NG tube extending into the stomach. Hyperinflation suggestive for COPD and or emphysematous changes. Biapical pleural thickening. Nodular density at the right lung base may represent confluence of shadows with ribs and vessels. Impression: NG tube extending into the stomach. Hyperinflation suggestive for COPD and or emphysematous changes. Biapical pleural thickening. Nodular density at the right lung base may represent confluence of shadows with ribs and vessels.
--- NOTE | 2017-10-11 09:53 | CP.PCM.PN ---
Subjective - Date & Time of Evaluation Date of Evaluation: 10/11/17 Time of Evaluation: 09:48 - Subjective Subjective: Same lethargy, in contracted state Na better at 150; phos low on hypotonic fluids and GT feeds for hypernatremia, hypovolemia [id number] Objective - Vital Signs/Intake and Output Vital Signs (last 24 hours): Temp Pulse Resp BP Pulse Ox 98.4 F 95 H 18 115/71 97 10/11/17 04:00 10/11/17 04:00 10/11/17 04:00 10/11/17 04:00 10/11/17 04:00 Intake and Output: 10/11/17 10/11/17 06:59 18:59 Intake Total 1120 Output Total 700 Balance 420 - Medications Medications: Current Medications Piperacillin Sod/Tazobactam Sod (Zosyn 2.25 Gm Iv Premix) 2.25 gm in 50 mls @ 100 mls/hr IVPB Q8H [facility] Last Admin: 10/11/17 05:27 Dose: 100 mls/hr Sodium Chloride (Sodium Chloride 0.45%) 1,000 mls @ 60 mls/hr IV .[id number] [facility] Last Admin: 10/11/17 06:33 Dose: 60 mls/hr Lorazepam (Ativan) 2 mg IVP Q6H PRN PRN Reason: Anxiety Last Admin: 10/10/17 13:52 Dose: 2 mg Pantoprazole Sodium (Protonix Inj) 40 mg IVP DAILY [facility] Last Admin: 10/10/17 09:44 Dose: 40 mg Polyethylene Glycol (Miralax) 17 gm NG DAILY [facility] - Labs Labs: 10/10/17 08:23 10/10/17 08:23 PT 13.3 SECONDS (9.7-12.2) H 10/07/17 08:23 INR 1.2 10/07/17 08:23 APTT 26 SECONDS (21-34) 10/07/17 08:23 - Constitutional Appears: No Acute Distress, Chronically Ill - Head Exam Head Exam: ATRAUMATIC, NORMAL INSPECTION - Eye Exam Eye Exam: EOMI, Normal appearance - Neck Exam Neck Exam: Normal Inspection. absent: Tenderness - Respiratory Exam Respiratory Exam: Clear to Ausculation Bilateral, NORMAL BREATHING PATTERN - Cardiovascular Exam Cardiovascular Exam: REGULAR RHYTHM, +S1 - GI/Abdominal Exam GI & Abdominal Exam: Soft. absent: Tenderness - Extremities Exam Extremities Exam: Normal Inspection. absent: Tenderness - Neurological Exam Neurological Exam: Altered - Skin Skin Exam: Dry, Warm Assessment and Plan - Assessment and Plan (Free Text) Plan: continue hypotonic fluids, freecwater replete phos
[2017-10-11] MEDS ORDERED: POLYETHYLENE GLYCOL 3350 17 GM/Dose PACKET NG SCH (10:00)
[2017-10-11] MEDS: POLYETHYLENE GLYCOL 3350 17 GM/Dose PACKET NG SCH (10:43)
[2017-10-11] MEDS ORDERED: Potassium Phosphate 15 MMOLE in Sodium Chloride 0.9% 250 ML IV ONE (11:00)
--- NOTE | 2017-10-11 11:39 | CP.PCM.CON ---
History of Present Illness - History of Present Illness History of Present Illness: palliative consult Patient is a 62 yo male admitted with symptoms of worsening AMS.The CT head was positive chronic microvascular changes. Na was elevatd, but decreasing after Hypotonic IV fluids, is 150 today. X Ray abdomen showed retained fecal material in colon. Miralax on board. patient very aggitated and unable to swallow food. NGT in for hydration. PMH; TBI 10 years ago, baseline AMS, nonverbal, urinary and fecal incontinence, dementia, Soc. Hx: , from senior living Fam. Hx: denied as per reports Review of Systems - Review of Systems All systems: reviewed and no additional remarkable complaints except Review of Systems: ROS obtained from nursing. ROS unavailable from patient due to condition. per nursing, increased agitation Past Patient History - Past Medical History & Family History Past Medical History?: Yes - Past Social History Smoking Status: Former Smoker - CARDIAC Hx Hypertension: Yes - PULMONARY Hx Chronic Obstructive Pulmonary Disease (COPD): Yes - NEUROLOGICAL Hx Neurological Disorder: Yes HX Cerebrovascular Accident: Yes Other/Comment: TBI? - HEENT Hx HEENT Problems: No - RENAL Hx Chronic Kidney Disease: Yes - ENDOCRINE/METABOLIC Hx Endocrine Disorders: No - HEMATOLOGICAL/ONCOLOGICAL Hx Blood Disorders: No - INTEGUMENTARY Hx Dermatological Problems: No - MUSCULOSKELETAL/RHEUMATOLOGICAL Hx Musculoskeletal Disorders: Yes Hx Falls: Yes - GASTROINTESTINAL Hx Gastrointestinal Disorders: Yes Hx Constipation: Yes - GENITOURINARY/GYNECOLOGICAL Hx Genitourinary Disorders: Yes Hx Incontinence: Yes - PSYCHIATRIC Hx Substance Use: No - SURGICAL HISTORY Hx Surgeries: Yes Hx Herniorrhaphy: Yes - ANESTHESIA Hx Anesthesia: Yes Hx Anesthesia Reactions: No Hx Malignant Hyperthermia: No Meds Allergies/Adverse Reactions: Allergies Allergy/AdvReac Type Severity Reaction Status Date / Time No Known Allergies Allergy Verified 08/07/17 20:25 - Medications Medications: Current Medications Piperacillin Sod/Tazobactam Sod (Zosyn 2.25 Gm Iv Premix) 2.25 gm in 50 mls @ 100 mls/hr IVPB Q8H [facility] Last Admin: 10/11/17 05:27 Dose: 100 mls/hr Sodium Chloride (Sodium Chloride 0.45%) 1,000 mls @ 60 mls/hr IV .[id number] [facility] Last Admin: 10/11/17 06:33 Dose: 60 mls/hr Potassium Phosphate 15 mmole/ (Sodium Chloride) 255 mls @ 63 mls/hr IV ONCE ONE Stop: 10/11/17 15:02 Last Admin: 10/11/17 10:40 Dose: 63 mls/hr Lorazepam (Ativan) 2 mg IVP Q6H PRN PRN Reason: Anxiety Last Admin: 10/10/17 13:52 Dose: 2 mg Pantoprazole Sodium (Protonix Inj) 40 mg IVP DAILY [facility] Last Admin: 10/11/17 10:43 Dose: 40 mg Polyethylene Glycol (Miralax) 17 gm NG DAILY [facility] Last Admin: 10/11/17 10:43 Dose: 17 gm Physical Exam - Constitutional Appears: No Acute Distress, Chronically Ill - Head Exam Head Exam: ATRAUMATIC, NORMAL INSPECTION - Eye Exam Eye Exam: EOMI, Normal appearance, PERRL Pupil Exam: NORMAL ACCOMODATION, PERRL - ENT Exam Additional comments: NGT - Neck Exam Neck exam: Positive for: Normal Inspection - Respiratory Exam Respiratory Exam: Decreased Breath Sounds - Cardiovascular Exam Cardiovascular Exam: Tachycardia - GI/Abdominal Exam GI & Abdominal Exam: Hypoactive Bowel Sounds - Rectal Exam Rectal Exam: Deferred - Exam Exam: NORMAL INSPECTION - Extremities Exam Extremities exam: Positive for: pedal edema - Back Exam Back exam: NORMAL INSPECTION - Neurological Exam Neurological exam: Alert, Altered - Psychiatric Exam Psychiatric exam: Agitated, Anxious - Skin Skin Exam: Normal Color Results - Vital Signs Recent Vital Signs: Last Vital Signs Temp 98.4 F 10/11/17 04:00 Pulse 95 H 10/11/17 04:00 Resp 18 10/11/17 04:00 BP 115/71 10/11/17 04:00 Pulse Ox 97 10/11/17 04:00 - Labs Result Diagrams: 10/10/17 08:23 10/10/17 08:23 Labs: Laboratory Results - last 24 hr 10/10/17 10/10/17 10/10/17 08:23 11:54 17:44 Neutrophils % (Manual) 82 H Band Neutrophils % 6 H Lymphocytes % (Manual) 6 L Reactive Lymphs % 1 H Monocytes % (Manual) 2 Eosinophils % (Manual) 3 Platelet Estimate Decreased L Anisocytosis (manual) Slight POC Glucose (mg/dL) 106 99 10/10/17 10/11/17 23:46 06:33 Neutrophils % (Manual) Band Neutrophils % Lymphocytes % (Manual) Reactive Lymphs % Monocytes % (Manual) Eosinophils % (Manual) Platelet Estimate Anisocytosis (manual) POC Glucose (mg/dL) 120 H 119 H Assessment & Plan - Assessment and Plan (Free Text) Assessment: Palliative consult Code status DNR/DNI, POLST on chart, PPS 10% I reviwed medical records, all diagnostic studies, examined patient in the bed and discussed his condition with nursing and medical staff. Patient is alert, altered, very agitated in bed, moves freely all extremities, nonverbal. NGT in for hydration. Breath sounds diminished, normal breathing pattern. Abdomen soft, hypoactive bowel sounds. No BM yet since admission, Miralax on board. Benjamin at BS, good urine output. there is active ROM to all extremities. BP 115/71, HR 95, O2Sat 97 % RA. Na 150 today. NaCl0.9 % at 60 cc /hr on. Reviweing patient medical records, I found the copy of POLST signed by patient' s on 07/2017. POLST indicates DNR/DNI. This was shared with Monique DAWKINS and Doctor Sally Khan. According to them requested Full Code yesterday. It is not clear weather forgot the POLST she signed or changed her mind. I asked the nurse to call me when comes and to clarify the Code status. Impression * Chronically ill man with AMS, very agitated in bed * Unable to advocate for him self * Dysphagia * Constipation * Discomfort from NGT may be causing more of agitation * Per nursing, patient able to fallow simple commends when more calm * patient is DNR/DNI per existing POLST Suggestion * Would consider Dulcolax supp or fleets enema to promote BM. Patient may be less agitated if constipation resolved * Would remove NGT and order swallow eval when patient more calm and able to cooperate * if dysphagia confirmed, PEG to be discussed * I will meet with today and review Code status Thank jorge alberto for consulting palliative Care
[2017-10-12] MEDS: Sodium Chloride 0.45% 1,000 ML IV SCH ×2 (05:32→07:20)
[2017-10-12] MEDS: Piperacill/Tazo 2.25gm in Dex 2.25 GM/50 ML BAG IVPB SCH ×3 (05:36→22:22)
[2017-10-12] MEDS: POLYETHYLENE GLYCOL 3350 17 GM/Dose PACKET NG SCH (10:53)
[2017-10-12 11:59] LABS: BASO % 0.3 % (0.0-2.0); EOS # 0.2 K/uL (0.0-0.7); EOS % 2.9 % (0.0-4.0); HEMOGLOBIN 12.9 g/dL (12.0-18.0); LYMPH # 0.9 K/uL (1.0-4.3); LYMPH % 13.6 % (20.0-40.0); MEAN CELL VOLUME 76.2 fL (80.0-94.0); MEAN CORPUSCULAR HGB CONC 34.1 g/dL (33.0-37.0); MEAN PLATELET VOLUME 11.8 fL (7.2-11.7); MONO # 0.6 K/uL (0.0-0.8); MONO % 8.6 % (0.0-10.0); NEUT % 74.6 % (50.0-75.0); RBC 4.98 Mil/uL (4.40-5.90); RED CELL DISTRIBUTION WIDTH 17.1 % (11.5-14.5); WHITE BLOOD COUNT 6.6 K/uL (4.8-10.8)
[2017-10-12 12:08] LABS: ALB/GLOB RATIO 0.8 (1.0-2.1); ALBUMIN 3.2 g/dL (3.5-5.0); ALT/SGPT 29 U/L (21-72); AST/SGOT 32 U/L (17-59); BLOOD UREA NITROGEN 18 mg/dL (9-20); CALCIUM 8.5 mg/dl (8.6-10.4); GFR AFRICAN-AMERICAN > 60; GFR NON-AFRICAN AMERICAN > 60
--- NOTE | 2017-10-12 12:24 | CP.PCM.PN ---
<OmarNew Galilee - Last Filed: 10/12/17 19:40> Subjective - Date & Time of Evaluation Date of Evaluation: 10/12/17 Time of Evaluation: 07:24 - Subjective Subjective: Patient non communicative and grunting today upon examination. Unable to ascertain ROS due to current clinical condition. Objective - Vital Signs/Intake and Output Vital Signs (last 24 hours): Temp Pulse Resp BP Pulse Ox 98.9 F 105 H 20 115/61 96 10/12/17 08:19 10/12/17 08:19 10/12/17 08:19 10/12/17 08:19 10/12/17 08:19 Intake and Output: 10/12/17 10/12/17 06:59 18:59 Intake Total 1020 Output Total 900 Balance 120 - Medications Medications: Current Medications Piperacillin Sod/Tazobactam Sod (Zosyn 2.25 Gm Iv Premix) 2.25 gm in 50 mls @ 100 mls/hr IVPB Q8H [facility] Last Admin: 10/12/17 05:36 Dose: 100 mls/hr Sodium Chloride (Sodium Chloride 0.45%) 1,000 mls @ 60 mls/hr IV .[id number] [facility] Last Admin: 10/12/17 05:32 Dose: 60 mls/hr Lorazepam (Ativan) 2 mg IVP Q6H PRN PRN Reason: Anxiety Last Admin: 10/12/17 10:54 Dose: 2 mg Pantoprazole Sodium (Protonix Inj) 40 mg IVP DAILY [facility] Last Admin: 10/12/17 10:54 Dose: 40 mg Polyethylene Glycol (Miralax) 17 gm NG DAILY [facility] Last Admin: 10/12/17 10:53 Dose: 17 gm - Labs Labs: 10/12/17 11:45 10/12/17 11:45 PT 13.3 SECONDS (9.7-12.2) H 10/07/17 08:23 INR 1.2 10/07/17 08:23 APTT 26 SECONDS (21-34) 10/07/17 08:23 - Head Exam Head Exam: ATRAUMATIC, NORMAL INSPECTION, NORMOCEPHALIC - Eye Exam Eye Exam: EOMI, Normal appearance, PERRL. absent: Periorbital tenderness Pupil Exam: NORMAL ACCOMODATION, PERRL. absent: Miosis, Mydriatic - ENT Exam ENT Exam: Mucous Membranes Moist, Normal Exam, Normal Oropharynx - Neck Exam Neck Exam: Normal Inspection. absent: Lymphadenopathy, Thyromegaly - Respiratory Exam Respiratory Exam: Clear to Ausculation Bilateral, NORMAL BREATHING PATTERN - Cardiovascular Exam Cardiovascular Exam: REGULAR RHYTHM, +S1, +S2 - GI/Abdominal Exam GI & Abdominal Exam: Soft, Normal Bowel Sounds - Extremities Exam Extremities Exam: Normal Inspection. absent: Pedal Edema - Back Exam Back Exam: NORMAL INSPECTION. absent: paraspinal tenderness - Neurological Exam Neurological Exam: Alert, Awake - Psychiatric Exam Psychiatric exam: Normal Affect, Normal Mood - Skin Skin Exam: Dry Assessment and Plan - Assessment and Plan (Free Text) Plan: Weakness Assessment and Plan: secondary to Failure to thrive Continue 1/2NS @ 60mls/hr During hospitalization 03/26 the patient was recommended to receive a PEG tube by GI. Initially the patient's signed the consent, however the day of the procedure she refused and the PEG was never placed. Continue NG feedings @ 30 cc/hr per Dietitian reccomendations. Ultimate goal is 60cc/hr. Head CT: chornic microvascular changes, atrophy, prominent ventricles, sinus disease Chest -X ray: hyperinflation of the lungs, diffuse increased interstitial lung markings, rib deformity and spine degenerative changes. Abdomen xray: fecal retention Status: Acute Hypernatremia Assessment and Plan: Possibly secondary to severe dehydration Continue to 1/2NS@ 60mls/hr today. Goal: to drop by <10 points in 24 hours * Monitor Na levels closely Status: Acute Leukocytosis Assessment and Plan: WBC: 10.7. Trending down UA: 3-5 Hyaline casts Vanco 1gm IVPB q24H Zosyn 2.25mg IVPB 86H Changed to 1/2NS @60 mls/hr blood culture (-) x96 hours urine culture (-) Status: Acute ELIDA (acute kidney injury) Assessment and Plan: Possibly secondary to severe dehydration, malnutrition BUN/CR: 18/.9 1/2NS@60mls/hr Status: Acute Constipation -Continue Miralax. Will continue to monitor. -Will keep feedings at 30mls/hr until he has a bowel movement. Ultimate goal 60mls/hr. History of traumatic head injury Assessment and Plan: Worsening neurologic deficit Non-verbal for the past two years Urinary and fecal incontinence Not oriented to place and time Status: Acute Prophylactic measure Assessment and Plan: SCD <Leroy Reno - Last Filed: 10/14/17 21:40> Objective - Vital Signs/Intake and Output Vital Signs (last 24 hours): Temp Pulse Resp BP Pulse Ox 98.4 F 85 18 133/76 100 10/14/17 08:39 10/14/17 15:15 10/14/17 15:15 10/14/17 15:15 10/14/17 15:15 Intake and Output: 10/14/17 10/15/17 18:59 06:59 Intake Total 840 Output Total 500 Balance 340 - Medications Medications: Current Medications Potassium Chloride 10 meq/ (Sodium Chloride) 1,005 mls @ 60 mls/hr IV .[id number] [facility] Last Admin: 10/14/17 09:33 Dose: 60 mls/hr Lorazepam (Ativan) 1 mg IVP Q6H PRN PRN Reason: Anxiety Last Admin: 10/14/17 11:04 Dose: 1 mg Pantoprazole Sodium (Protonix Ec Tab) 40 mg PO DAILY [facility] Last Admin: 10/14/17 09:32 Dose: 40 mg Polyethylene Glycol (Miralax) 17 gm NG DAILY [facility] Last Admin: 10/14/17 09:31 Dose: Not Given - Labs Labs: 10/12/17 11:45 10/13/17 11:45 PT 13.3 SECONDS (9.7-12.2) H 10/07/17 08:23 INR 1.2 10/07/17 08:23 APTT 26 SECONDS (21-34) 10/07/17 08:23 Attending/Attestation - Attestation I have personally seen and examined this patient.: Yes I have fully participated in the care of the patient.: Yes I have reviewed all pertinent clinical information, including history, physical exam and plan: Yes Notes (Text): Seen and examined patient is nonverbal,confused and getting NG feeding Discussed with his wants to take him home when he start eating. He is agitated Palliative care on board D/w the resident I agree with the documentation
--- NOTE | 2017-10-12 14:05 | CP.PCM.PN ---
Subjective - Date & Time of Evaluation Date of Evaluation: 10/12/17 Time of Evaluation: 14:03 - Subjective Subjective: appears same- poorly responsive, contracted Na- now 145- responded to free water maintained on GT feeds no other changes Objective - Vital Signs/Intake and Output Vital Signs (last 24 hours): Temp Pulse Resp BP Pulse Ox 98.9 F 105 H 20 115/61 96 10/12/17 08:19 10/12/17 08:19 10/12/17 08:19 10/12/17 08:19 10/12/17 08:19 Intake and Output: 10/12/17 10/12/17 06:59 18:59 Intake Total 1020 Output Total 900 Balance 120 - Medications Medications: Current Medications Piperacillin Sod/Tazobactam Sod (Zosyn 2.25 Gm Iv Premix) 2.25 gm in 50 mls @ 100 mls/hr IVPB Q8H [facility] Last Admin: 10/12/17 05:36 Dose: 100 mls/hr Lorazepam (Ativan) 2 mg IVP Q6H PRN PRN Reason: Anxiety Last Admin: 10/12/17 10:54 Dose: 2 mg Pantoprazole Sodium (Protonix Inj) 40 mg IVP DAILY [facility] Last Admin: 10/12/17 10:54 Dose: 40 mg Polyethylene Glycol (Miralax) 17 gm NG DAILY [facility] Last Admin: 10/12/17 10:53 Dose: 17 gm - Labs Labs: 10/12/17 11:45 10/12/17 11:45 PT 13.3 SECONDS (9.7-12.2) H 10/07/17 08:23 INR 1.2 10/07/17 08:23 APTT 26 SECONDS (21-34) 10/07/17 08:23 - Constitutional Appears: No Acute Distress, Chronically Ill - Head Exam Head Exam: ATRAUMATIC, NORMAL INSPECTION - Eye Exam Eye Exam: EOMI, Normal appearance - Neck Exam Neck Exam: Normal Inspection. absent: Tenderness - Respiratory Exam Respiratory Exam: Clear to Ausculation Bilateral, NORMAL BREATHING PATTERN - Cardiovascular Exam Cardiovascular Exam: REGULAR RHYTHM, +S1 - GI/Abdominal Exam GI & Abdominal Exam: Soft. absent: Tenderness - Extremities Exam Extremities Exam: Normal Inspection. absent: Tenderness - Neurological Exam Neurological Exam: Altered - Skin Skin Exam: Dry, Warm Assessment and Plan (1) Dehydration Status: Acute (2) Hypernatremia Status: Acute (3) Dementia Status: Chronic - Assessment and Plan (Free Text) Plan: d/c free water follow up daniele GT feeds
--- NOTE | 2017-10-13 04:51 | CP.PCM.PN ---
<Cecil Segurassyca LoveSumaya - Last Filed: 10/13/17 06:18> Subjective - Date & Time of Evaluation Date of Evaluation: 10/13/17 Time of Evaluation: 06:00 - Subjective Subjective: Medicine Progress Note: Patient was seen and examined at bedside in the AM. Patient non communicative and grunting today upon examination. Unable to ascertain ROS due to current clinical condition. Objective - Vital Signs/Intake and Output Vital Signs (last 24 hours): Temp Pulse Resp BP Pulse Ox 96.6 F L 61 18 112/68 98 10/12/17 23:13 10/12/17 23:13 10/12/17 23:13 10/12/17 23:13 10/12/17 23:13 Intake and Output: 10/12/17 10/13/17 18:59 06:59 Intake Total 1340 790 Output Total 500 700 Balance 840 90 - Medications Medications: Current Medications Piperacillin Sod/Tazobactam Sod (Zosyn 2.25 Gm Iv Premix) 2.25 gm in 50 mls @ 100 mls/hr IVPB Q8H [facility] Last Admin: 10/12/17 22:22 Dose: 100 mls/hr Lorazepam (Ativan) 1 mg IVP Q6H PRN PRN Reason: Anxiety Last Admin: 10/13/17 01:18 Dose: 1 mg Pantoprazole Sodium (Protonix Inj) 40 mg IVP DAILY [facility] Last Admin: 10/12/17 10:54 Dose: 40 mg Polyethylene Glycol (Miralax) 17 gm NG DAILY [facility] Last Admin: 10/12/17 10:53 Dose: 17 gm - Labs Labs: 10/12/17 11:45 10/12/17 11:45 PT 13.3 SECONDS (9.7-12.2) H 10/07/17 08:23 INR 1.2 10/07/17 08:23 APTT 26 SECONDS (21-34) 10/07/17 08:23 - Constitutional Appears: Chronically Ill - Head Exam Head Exam: ATRAUMATIC, NORMOCEPHALIC - Eye Exam Eye Exam: Normal appearance - ENT Exam ENT Exam: Mucous Membranes Moist - Respiratory Exam Respiratory Exam: NORMAL BREATHING PATTERN - Cardiovascular Exam Cardiovascular Exam: REGULAR RHYTHM, +S1, +S2 - GI/Abdominal Exam GI & Abdominal Exam: Soft, Normal Bowel Sounds - Extremities Exam Extremities Exam: Normal Inspection - Neurological Exam Neurological Exam: Awake Assessment and Plan - Assessment and Plan (Free Text) Assessment: Weakness secondary to Failure to thrive Continue 1/2NS @ 60mls/hr During hospitalization 03/26 the patient was recommended to receive a PEG tube by GI. Initially the patient's signed the consent, however the day of the procedure she refused and the PEG was never placed. Continue NG feedings @ 30 cc/hr per Dietitian reccomendations. Ultimate goal is 60cc/hr. Head CT: chornic microvascular changes, atrophy, prominent ventricles, sinus disease Chest -X ray: hyperinflation of the lungs, diffuse increased interstitial lung markings, rib deformity and spine degenerative changes. Abdomen xray: fecal retention Hypernatremia Possibly secondary to severe dehydration Continue to 1/2NS@ 60mls/hr today. Goal: to drop by <10 points in 24 hours * Monitor Na levels closely Leukocytosis WBC: 10.7. Trending down UA: 3-5 Hyaline casts Vanco 1gm IVPB q24H Zosyn 2.25mg IVPB 86H Changed to 1/2NS @60 mls/hr blood culture (-) x96 hours urine culture (-) ELIDA (acute kidney injury) Possibly secondary to severe dehydration, malnutrition BUN/CR: 18/.9 1/2NS@60mls/hr Constipation -Continue Miralax. Will continue to monitor. -Will keep feedings at 30mls/hr until he has a bowel movement. Ultimate goal 60mls/hr. History of traumatic head injury Worsening neurologic deficit Non-verbal for the past two years Urinary and fecal incontinence Not oriented to place and time Prophylactic measure SCD <Leroy Reno - Last Filed: 10/14/17 21:44> Objective - Vital Signs/Intake and Output Vital Signs (last 24 hours): Temp Pulse Resp BP Pulse Ox 98.4 F 85 18 133/76 100 10/14/17 08:39 10/14/17 15:15 10/14/17 15:15 10/14/17 15:15 10/14/17 15:15 Intake and Output: 10/14/17 10/15/17 18:59 06:59 Intake Total 840 Output Total 500 Balance 340 - Medications Medications: Current Medications Potassium Chloride 10 meq/ (Sodium Chloride) 1,005 mls @ 60 mls/hr IV .[id number] [facility] Last Admin: 10/14/17 09:33 Dose: 60 mls/hr Lorazepam (Ativan) 1 mg IVP Q6H PRN PRN Reason: Anxiety Last Admin: 10/14/17 11:04 Dose: 1 mg Pantoprazole Sodium (Protonix Ec Tab) 40 mg PO DAILY [facility] Last Admin: 10/14/17 09:32 Dose: 40 mg Polyethylene Glycol (Miralax) 17 gm NG DAILY [facility] Last Admin: 10/14/17 09:31 Dose: Not Given - Labs Labs: 10/12/17 11:45 10/13/17 11:45 PT 13.3 SECONDS (9.7-12.2) H 10/07/17 08:23 INR 1.2 10/07/17 08:23 APTT 26 SECONDS (21-34) 10/07/17 08:23 Attending/Attestation - Attestation I have personally seen and examined this patient.: Yes I have fully participated in the care of the patient.: Yes I have reviewed all pertinent clinical information, including history, physical exam and plan: Yes Notes (Text): Seen and examined this morning,s/p agitation d/w RN about feeding Patient was sleeping in the morning later he pulled his NG tube We will try to feed him Avaoid sedatives I agree with the resident's documentation
[2017-10-13] MEDS: Piperacill/Tazo 2.25gm in Dex 2.25 GM/50 ML BAG IVPB SCH ×2 (06:16→13:36)
[2017-10-13] MEDS: POLYETHYLENE GLYCOL 3350 17 GM/Dose PACKET NG SCH (09:31)
--- NOTE | 2017-10-13 10:13 | CP.PCM.PN ---
Subjective - Date & Time of Evaluation Date of Evaluation: 10/13/17 Time of Evaluation: 10:11 - Subjective Subjective: pt seen and examined sleeping, arousable non vernal NGT in place ROS- unable to obtain as pt non verbal Objective - Vital Signs/Intake and Output Vital Signs (last 24 hours): Temp Pulse Resp BP Pulse Ox 97.9 F 84 20 114/72 97 10/13/17 07:45 10/13/17 07:45 10/13/17 07:45 10/13/17 07:45 10/13/17 07:45 Intake and Output: 10/13/17 10/13/17 06:59 18:59 Intake Total 790 1070 Output Total 700 750 Balance 90 320 - Medications Medications: Current Medications Piperacillin Sod/Tazobactam Sod (Zosyn 2.25 Gm Iv Premix) 2.25 gm in 50 mls @ 100 mls/hr IVPB Q8H [facility] Last Admin: 10/13/17 06:16 Dose: 100 mls/hr Lorazepam (Ativan) 1 mg IVP Q6H PRN PRN Reason: Anxiety Last Admin: 10/13/17 01:18 Dose: 1 mg Pantoprazole Sodium (Protonix Inj) 40 mg IVP DAILY [facility] Last Admin: 10/13/17 09:31 Dose: 40 mg Polyethylene Glycol (Miralax) 17 gm NG DAILY [facility] Last Admin: 10/13/17 09:31 Dose: 17 gm - Labs Labs: 10/12/17 11:45 10/12/17 11:45 PT 13.3 SECONDS (9.7-12.2) H 10/07/17 08:23 INR 1.2 10/07/17 08:23 APTT 26 SECONDS (21-34) 10/07/17 08:23 - Constitutional Appears: No Acute Distress, Older Than Stated Age - Head Exam Head Exam: ATRAUMATIC, NORMOCEPHALIC - Eye Exam Eye Exam: EOMI - ENT Exam ENT Exam: Mucous Membranes Moist - Respiratory Exam Respiratory Exam: Clear to Ausculation Bilateral. absent: Rhonchi, Wheezes - Cardiovascular Exam Cardiovascular Exam: REGULAR RHYTHM, +S1, +S2 - GI/Abdominal Exam GI & Abdominal Exam: Soft. absent: Tenderness - Extremities Exam Extremities Exam: absent: Pedal Edema - Neurological Exam Neurological Exam: absent: Alert, Awake, Oriented x3 - Skin Skin Exam: Dry, Warm Assessment and Plan (1) Dehydration Status: Acute (2) History of traumatic head injury Status: Acute (3) Hypernatremia Status: Acute (4) ELIDA (acute kidney injury) Status: Acute - Assessment and Plan (Free Text) Plan: cr stable hypernatremia improved refused PEG continue with tube feeds and free water flushes
[2017-10-13 12:33] LABS: ALB/GLOB RATIO 0.8 (1.0-2.1); ALBUMIN 3.3 g/dL (3.5-5.0); ALT/SGPT 19 U/L (21-72); AST/SGOT 40 U/L (17-59); BLOOD UREA NITROGEN 16 mg/dL (9-20); CALCIUM 8.7 mg/dl (8.6-10.4); GFR AFRICAN-AMERICAN > 60; GFR NON-AFRICAN AMERICAN > 60; MAGNESIUM 2.2 mg/dL (1.6-2.3)
--- NOTE | 2017-10-14 01:01 | CP.PCM.PN ---
<ColtonSalina LoveSumaya - Last Filed: 10/14/17 06:13> Subjective - Date & Time of Evaluation Date of Evaluation: 10/14/17 Time of Evaluation: 06:00 - Subjective Subjective: Medicine Progress Note: Patient was seen and examined at bedside in the AM. Patient non communicative and grunting today upon examination. Unable to ascertain ROS due to current clinical condition. Objective - Vital Signs/Intake and Output Vital Signs (last 24 hours): Temp Pulse Resp BP Pulse Ox 98.6 F 94 H 20 136/81 100 10/13/17 23:33 10/13/17 23:33 10/13/17 23:33 10/13/17 23:33 10/13/17 23:33 Intake and Output: 10/13/17 10/14/17 18:59 06:59 Intake Total 1630 350 Output Total 1750 550 Balance -120 -200 - Medications Medications: Current Medications Potassium Chloride 10 meq/ (Sodium Chloride) 1,005 mls @ 60 mls/hr IV .[id number] [facility] Last Admin: 10/13/17 17:30 Dose: 60 mls/hr Lorazepam (Ativan) 1 mg IVP Q6H PRN PRN Reason: Anxiety Last Admin: 10/13/17 13:35 Dose: 1 mg Pantoprazole Sodium (Protonix Ec Tab) 40 mg PO DAILY [facility] Polyethylene Glycol (Miralax) 17 gm NG DAILY [facility] Last Admin: 10/13/17 09:31 Dose: 17 gm - Labs Labs: 10/12/17 11:45 10/13/17 11:45 PT 13.3 SECONDS (9.7-12.2) H 10/07/17 08:23 INR 1.2 10/07/17 08:23 APTT 26 SECONDS (21-34) 10/07/17 08:23 - Constitutional Appears: No Acute Distress, Chronically Ill - Head Exam Head Exam: NORMAL INSPECTION - Eye Exam Eye Exam: EOMI, Normal appearance - ENT Exam ENT Exam: Mucous Membranes Moist - Respiratory Exam Respiratory Exam: NORMAL BREATHING PATTERN - Cardiovascular Exam Cardiovascular Exam: REGULAR RHYTHM, +S1, +S2 - GI/Abdominal Exam GI & Abdominal Exam: Soft, Normal Bowel Sounds - Extremities Exam Extremities Exam: Normal Inspection - Neurological Exam Neurological Exam: Awake Assessment and Plan - Assessment and Plan (Free Text) Assessment: Weakness secondary to Failure to thrive Continue 1/2NS @ 60mls/hr During hospitalization 03/26 the patient was recommended to receive a PEG tube by GI. Initially the patient's signed the consent, however the day of the procedure she refused and the PEG was never placed. Continue NG feedings @ 30 cc/hr per Dietitian reccomendations. Ultimate goal is 60cc/hr. Head CT: chornic microvascular changes, atrophy, prominent ventricles, sinus disease Chest -X ray: hyperinflation of the lungs, diffuse increased interstitial lung markings, rib deformity and spine degenerative changes. Abdomen xray: fecal retention Hypernatremia Possibly secondary to severe dehydration Continue to 1/2NS@ 60mls/hr today. Goal: to drop by <10 points in 24 hours * Monitor Na levels closely Leukocytosis WBC: 10.7. Trending down UA: 3-5 Hyaline casts Vanco 1gm IVPB q24H Zosyn 2.25mg IVPB 86H Changed to 1/2NS @60 mls/hr blood culture (-) x96 hours urine culture (-) ELIDA (acute kidney injury) Possibly secondary to severe dehydration, malnutrition BUN/CR: 18/.9 1/2NS@60mls/hr Constipation -Continue Miralax. Will continue to monitor. -Will keep feedings at 30mls/hr until he has a bowel movement. Ultimate goal 60mls/hr. History of traumatic head injury Worsening neurologic deficit Non-verbal for the past two years Urinary and fecal incontinence Not oriented to place and time Prophylactic measure SCD <Leroy Reno - Last Filed: 10/14/17 21:47> Objective - Vital Signs/Intake and Output Vital Signs (last 24 hours): Temp Pulse Resp BP Pulse Ox 98.4 F 85 18 133/76 100 10/14/17 08:39 10/14/17 15:15 10/14/17 15:15 10/14/17 15:15 10/14/17 15:15 Intake and Output: 10/14/17 10/15/17 18:59 06:59 Intake Total 840 Output Total 500 Balance 340 - Medications Medications: Current Medications Potassium Chloride 10 meq/ (Sodium Chloride) 1,005 mls @ 60 mls/hr IV .[id number] [facility] Last Admin: 10/14/17 09:33 Dose: 60 mls/hr Lorazepam (Ativan) 1 mg IVP Q6H PRN PRN Reason: Anxiety Last Admin: 10/14/17 11:04 Dose: 1 mg Pantoprazole Sodium (Protonix Ec Tab) 40 mg PO DAILY [facility] Last Admin: 10/14/17 09:32 Dose: 40 mg Polyethylene Glycol (Miralax) 17 gm NG DAILY [facility] Last Admin: 10/14/17 09:31 Dose: Not Given - Labs Labs: 10/12/17 11:45 10/13/17 11:45 PT 13.3 SECONDS (9.7-12.2) H 10/07/17 08:23 INR 1.2 10/07/17 08:23 APTT 26 SECONDS (21-34) 10/07/17 08:23 Attending/Attestation - Attestation I have personally seen and examined this patient.: Yes I have fully participated in the care of the patient.: Yes I have reviewed all pertinent clinical information, including history, physical exam and plan: Yes Notes (Text): Seen and examined He ate 90% of his breakfast as per his RN. Continue oral feeding.Tolerating well d/w RN to Avoid sedatives I agree with the resident's documentation
[2017-10-14] MEDS: POLYETHYLENE GLYCOL 3350 17 GM/Dose PACKET NG SCH (09:31)
[2017-10-14] MEDS: Pantoprazole 40 mg EC Tab PO SCH (09:32)
--- NOTE | 2017-10-15 10:46 | PCM.PSYCH ---
Initial Psychiatric Evaluation - Initial Psychiatric Evaluation Type of Admission: Voluntary Legal Status: Capacity Chief Complaint (in patient's own words): Patient is nonverbal History of Present Illness and Precipitating Events: Patient is a 62 year old CM with a history of dementia was admitted on the medical floor, for dehydration, tachycardia, and hypernatremia. Psychiatry was consulted for altered mental status. Patient was seen and examined, chart was reviewed. Per nurse, the patient has been exceedingly agitated, delirious, pulling out his NG tube earlier and required sedation. Upon waking the patient was able to make eye contact despite being drowsy. The patient is responsive to but nonverbal, answering questions with groaning sounds, unable to take a complete history. Pt remained drowsy, confused and delirious. The patient is lying in bed with both legs bilaterally flexed at the knees and hips. The patient has mitten restraints on his hand to prevent him from pulling out his IV. Current Medications: Active Medications Generic Name Dose Route Start Last Admin Trade Name Freq PRN Reason Stop Dose Admin Potassium Chloride 10 meq/ 1,005 mls @ 60 mls/hr 10/13/17 17:00 10/15/17 07: 00 Sodium Chloride IV 60 mls/hr .[id number] [facility] Administration Lorazepam 1 mg 10/12/17 18:52 10/15/17 07:05 Ativan IVP 1 mg Q6H PRN Administration Anxiety Pantoprazole Sodium 40 mg 10/14/17 10:00 10/14/17 09:32 Protonix Ec Tab PO 40 mg DAILY [facility] Administration Polyethylene Glycol 17 gm 10/11/17 10:00 10/14/17 09:31 Miralax NG Not Given DAILY [facility] Past Psychiatric History - Past Psychiatric History Previous Treatment History: None Pertinent Medical Hx (Current Medical&Sleep Prob, Allergies): Allergies Allergy/AdvReac Type Severity Reaction Status Date / Time No Known Allergies Allergy Verified 08/07/17 20:25 Famotidine 20 mg PO BID 04/02/17 Magnesium Hydroxide [Milk Of Magnesia] 30 ml PO HS PRN 04/02/17 Amantadine [Amantadine 100 mg Cap] 100 mg PO DAILY cap 08/15/17 Divalproex [Depakote ER] [address] 08/15/17 Ergocalciferol [Drisdol 50,000 Intl Units Cap] 1 cap PO Q7D cap 08/15/17 Ferrous Sulfate [Feosol] 325 mg PO DAILY tab 08/15/17 Memantine [Namenda] 5 mg PO DAILY tab 08/15/17 Acetaminophen [Tylenol 325mg tab] 325 mg PO Q6H PRN #40 tab 08/16/17 Review of Systems - Review of Systems All systems: reviewed and no additional remarkable complaints except - Neurological Neurological: Abnormal Speech, Confusion - Psychiatric Psychiatric: Anxiety, Confusion, Difficulty Concentrating, Irritability Mental Status Examination - Personal Presentation Personal Presentation: Looks older than stated age - Affect Affect: Blunted - Motor Activity Motor Activity: Psychomotor Agitation - Reliability in Providing Information Reliability in Providing Information: Other Additional comments: patient is nonverbal - Speech Speech: Disorganized, Incoherent - Mood Mood: Anxious - Formal Thought Process Formal Thought Process: Loosening of associations - Obsessions/Compulsions Obsessions: None Compulsions: None - Cognitive Functions Sensorium: Drowsy Attention/Concentration: Easily distracted Judgement: Imparied, as evidence by: Other Additional comments: unable to accurately evaluate as patient is unable to communicate verbally. - Risk Risk: Falls, Diminished functioning - Limitations Limitations: Other Additional comments: Nonverbal DSM 5 DX - DSM 5 DSM 5 Diagnosis: Delirium due to general medical conditions - Recommended/Plan of Treatment Treatment Recommendations and Plan of Treatment: Delirium due to general medical conditions Monitor Patient's mood Ativan 1mg IVP Q6 PRN for agitation - Smoking Cessation Smoking Cessation Initiated: No
[2017-10-15] MEDS: Pantoprazole 40 mg EC Tab PO SCH (11:00)
[2017-10-15] MEDS: POLYETHYLENE GLYCOL 3350 17 GM/Dose PACKET NG SCH (11:00)
--- NOTE | 2017-10-15 11:31 | CP.PCM.PN ---
Subjective - Date & Time of Evaluation Date of Evaluation: 10/15/17 Time of Evaluation: 11:28 - Subjective Subjective: alert, confused as before on IV fluids, excellent UO renal function and lytes have stabilized Objective - Vital Signs/Intake and Output Vital Signs (last 24 hours): Temp Pulse Resp BP Pulse Ox 98.5 F 84 20 132/79 97 10/15/17 07:57 10/15/17 07:57 10/15/17 07:57 10/15/17 07:57 10/15/17 07:57 Intake and Output: 10/15/17 10/15/17 06:59 18:59 Intake Total 1510 Output Total 1100 Balance 410 - Medications Medications: Current Medications Potassium Chloride 10 meq/ (Sodium Chloride) 1,005 mls @ 60 mls/hr IV .[id number] [facility] Last Admin: 10/15/17 07:00 Dose: 60 mls/hr Lorazepam (Ativan) 1 mg IVP Q6H PRN PRN Reason: Anxiety Last Admin: 10/15/17 07:05 Dose: 1 mg Pantoprazole Sodium (Protonix Ec Tab) 40 mg PO DAILY [facility] Last Admin: 10/15/17 11:00 Dose: 40 mg Polyethylene Glycol (Miralax) 17 gm NG DAILY [facility] Last Admin: 10/15/17 11:00 Dose: 17 gm - Labs Labs: 10/12/17 11:45 10/13/17 11:45 PT 13.3 SECONDS (9.7-12.2) H 10/07/17 08:23 INR 1.2 10/07/17 08:23 APTT 26 SECONDS (21-34) 10/07/17 08:23 - Constitutional Appears: No Acute Distress, Chronically Ill - Head Exam Head Exam: ATRAUMATIC, NORMAL INSPECTION - Eye Exam Eye Exam: EOMI, Normal appearance - Neck Exam Neck Exam: Normal Inspection. absent: Tenderness - Respiratory Exam Respiratory Exam: Clear to Ausculation Bilateral, NORMAL BREATHING PATTERN - Cardiovascular Exam Cardiovascular Exam: REGULAR RHYTHM, +S1 - GI/Abdominal Exam GI & Abdominal Exam: Soft. absent: Tenderness - Extremities Exam Extremities Exam: Normal Inspection. absent: Tenderness - Neurological Exam Neurological Exam: Altered - Skin Skin Exam: Dry, Warm Assessment and Plan (1) Dehydration Status: Acute (2) Hypernatremia Status: Acute (3) Dementia Status: Chronic - Assessment and Plan (Free Text) Plan: Dehydration and lytes imbalance improved- will see again as needed
--- NOTE | 2017-10-15 11:55 | CP.PCM.PCO ---
Physician Communication Note - Physician Communication Note Physician Communication Note: Family meeting at 2pm today
--- NOTE | 2017-10-15 14:43 | CP.PCM.PN ---
Subjective - Date & Time of Evaluation Date of Evaluation: 10/15/17 Time of Evaluation: 11:00 - Subjective Subjective: patient confused Objective - Vital Signs/Intake and Output Vital Signs (last 24 hours): Temp Pulse Resp BP Pulse Ox 98.5 F 84 20 132/79 97 10/15/17 07:57 10/15/17 07:57 10/15/17 07:57 10/15/17 07:57 10/15/17 07:57 Intake and Output: 10/15/17 10/15/17 06:59 18:59 Intake Total 1510 Output Total 1100 Balance 410 - Medications Medications: Current Medications Potassium Chloride 10 meq/ (Sodium Chloride) 1,005 mls @ 60 mls/hr IV .[id number] [facility] Last Admin: 10/15/17 07:00 Dose: 60 mls/hr Lorazepam (Ativan) 1 mg IVP Q6H PRN PRN Reason: Anxiety Last Admin: 10/15/17 07:05 Dose: 1 mg Pantoprazole Sodium (Protonix Ec Tab) 40 mg PO DAILY [facility] Last Admin: 10/15/17 11:00 Dose: 40 mg Polyethylene Glycol (Miralax) 17 gm NG DAILY [facility] Last Admin: 10/15/17 11:00 Dose: 17 gm - Labs Labs: 10/12/17 11:45 10/13/17 11:45 PT 13.3 SECONDS (9.7-12.2) H 10/07/17 08:23 INR 1.2 10/07/17 08:23 APTT 26 SECONDS (21-34) 10/07/17 08:23 - Constitutional Appears: No Acute Distress, Chronically Ill - Head Exam Head Exam: ATRAUMATIC, NORMAL INSPECTION, NORMOCEPHALIC - Eye Exam Eye Exam: EOMI, Normal appearance, PERRL Pupil Exam: NORMAL ACCOMODATION, PERRL - ENT Exam ENT Exam: Mucous Membranes Dry - Neck Exam Neck Exam: Normal Inspection - Respiratory Exam Respiratory Exam: Decreased Breath Sounds, NORMAL BREATHING PATTERN - Cardiovascular Exam Cardiovascular Exam: Tachycardia, REGULAR RHYTHM - GI/Abdominal Exam GI & Abdominal Exam: Hypoactive Bowel Sounds - Rectal Exam Rectal Exam: Deferred - Exam Additional comments: incontinent - Extremities Exam Extremities Exam: Normal Inspection - Back Exam Back Exam: NORMAL INSPECTION - Neurological Exam Neurological Exam: Alert, Altered Neuro motor strength exam: Left Upper Extremity: 2/1, Right Upper Extremity: 2/ , Left Lower Extremity: 2, Right Lower Extremity: 2 - Psychiatric Exam Psychiatric exam: Agitated, Anxious - Skin Skin Exam: Normal Color Assessment and Plan - Assessment and Plan (Free Text) Assessment: palliative care progress note Patient seen and examined in bed this morning. Patient is confused, agitated, unable to follow simple verbal or tactile commands. No seeing patient is constantly moving in the bed and presents a prescription was himself from falling all the bed. Patient still has poor appetite and needs max assistance with feeding. However, patient's by mouth intakes are very poor and the feeding tube was recommended. Initially patient's agreed with the feeding tube placement, then on the day of the surgery she refused it. I tried a few times to get in touch with patient's . Today I spoke to her over the phone twice. At first she agreed to one family meeting at 2:00 PM. Then , she called back and said she wasn't sure if she would make it today, and was going to try tomorrow, but wasn't sure at what time she should be here. Impression * Patient is confused and unable to other locate for himself * Patient's acts irresponsibly, by changing her opinion about patient's goals of care and not communicating well with the care providers. * With further delay off feeding tube insertion patient is placed in the severe malnutrition * Confusion, at risk for falls Suggestions * Patient should get the feeding tube to assist with proper nutrition * Would include other team members to assist in scheduling family meeting with . * Safety watch * Offer by mouth food as tolerated I'll will try one more time for tomorrow and to establish goals of care for this patient
--- NOTE | 2017-10-15 14:48 | CP.PCM.PN ---
<OmarKenian - Last Filed: 10/15/17 17:34> Subjective - Date & Time of Evaluation Date of Evaluation: 10/15/17 Time of Evaluation: 08:47 - Subjective Subjective: Medicine Progress Note: Patient was seen and examined at bedside in the AM. Patient non communicative and grunting today upon examination. Unable to ascertain ROS due to current clinical condition. Objective - Vital Signs/Intake and Output Vital Signs (last 24 hours): Temp Pulse Resp BP Pulse Ox 98.5 F 84 20 132/79 97 10/15/17 07:57 10/15/17 07:57 10/15/17 07:57 10/15/17 07:57 10/15/17 07:57 Intake and Output: 10/15/17 10/15/17 06:59 18:59 Intake Total 1510 Output Total 1100 Balance 410 - Medications Medications: Current Medications Potassium Chloride 10 meq/ (Sodium Chloride) 1,005 mls @ 60 mls/hr IV .[id number] [facility] Last Admin: 10/15/17 07:00 Dose: 60 mls/hr Lorazepam (Ativan) 1 mg IVP Q6H PRN PRN Reason: Anxiety Last Admin: 10/15/17 07:05 Dose: 1 mg Pantoprazole Sodium (Protonix Ec Tab) 40 mg PO DAILY [facility] Last Admin: 10/15/17 11:00 Dose: 40 mg Polyethylene Glycol (Miralax) 17 gm NG DAILY [facility] Last Admin: 10/15/17 11:00 Dose: 17 gm - Labs Labs: 10/12/17 11:45 10/13/17 11:45 PT 13.3 SECONDS (9.7-12.2) H 10/07/17 08:23 INR 1.2 10/07/17 08:23 APTT 26 SECONDS (21-34) 10/07/17 08:23 - Head Exam Head Exam: ATRAUMATIC, NORMAL INSPECTION, NORMOCEPHALIC - Eye Exam Eye Exam: EOMI, Normal appearance, PERRL. absent: Periorbital tenderness Pupil Exam: NORMAL ACCOMODATION, PERRL. absent: Irregular, Unequal - ENT Exam ENT Exam: Mucous Membranes Moist, Normal Oropharynx - Neck Exam Neck Exam: Full ROM, Normal Inspection - Respiratory Exam Respiratory Exam: Clear to Ausculation Bilateral, NORMAL BREATHING PATTERN. absent: Chest Wall Tenderness, Prolonged Expiratory Phase, Respiratory Distress - Cardiovascular Exam Cardiovascular Exam: REGULAR RHYTHM, RRR, +S1, +S2. absent: Rubs - GI/Abdominal Exam GI & Abdominal Exam: Soft, Normal Bowel Sounds. absent: Rigid, Hyperactive Bowel Sounds - Extremities Exam Extremities Exam: Full ROM, Normal Inspection. absent: Joint Swelling, Pedal Edema, Tenderness - Back Exam Back Exam: NORMAL INSPECTION. absent: CVA tenderness (L), CVA tenderness (R), paraspinal tenderness - Neurological Exam Neurological Exam: Awake - Psychiatric Exam Psychiatric exam: Normal Affect, Normal Mood - Skin Skin Exam: Dry, Intact Assessment and Plan - Assessment and Plan (Free Text) Plan: Weakness secondary to Failure to thrive Continue 1/2NS @ 60mls/hr During hospitalization 03/26 the patient was recommended to receive a PEG tube by GI. Initially the patient's signed the consent, however the day of the procedure she refused and the PEG was never placed. Continue NG feedings @ 30 cc/hr per Dietitian recommendations. Ultimate goal is 60cc/hr. Head CT: chornic microvascular changes, atrophy, prominent ventricles, sinus disease Chest -X ray: hyperinflation of the lungs, diffuse increased interstitial lung markings, rib deformity and spine degenerative changes. Abdomen xray: fecal retention Hypernatremia Possibly secondary to severe dehydration Continue to 1/2NS@ 60mls/hr today. Goal: to drop by <10 points in 24 hours * Monitor Na levels closely Leukocytosis UA: 3-5 Hyaline casts Vanco 1gm IVPB q24H Zosyn 2.25mg IVPB 86H Continue 1/2NS @60 mls/hr blood culture (-)x5 days urine culture (-) ELIDA (acute kidney injury) Possibly secondary to severe dehydration, malnutrition 1/2NS@60mls/hr Constipation -Continue Miralax. Will continue to monitor. -Will keep feedings at 30mls/hr until he has a bowel movement. Ultimate goal 60mls/hr. History of traumatic head injury Worsening neurologic deficit Non-verbal for the past two years Urinary and fecal incontinence Not oriented to place and time Prophylactic measure SCD <Edis Denton H - Last Filed: 10/15/17 17:40> Objective - Vital Signs/Intake and Output Vital Signs (last 24 hours): Temp Pulse Resp BP Pulse Ox 98.0 F 87 20 123/77 100 10/15/17 15:00 10/15/17 15:00 10/15/17 15:00 10/15/17 15:00 10/15/17 15:00 Intake and Output: 10/15/17 10/15/17 06:59 18:59 Intake Total 1510 880 Output Total 1100 900 Balance 410 -20 - Medications Medications: Current Medications Potassium Chloride 10 meq/ (Sodium Chloride) 1,005 mls @ 60 mls/hr IV .[id number] [facility] Last Admin: 10/15/17 07:00 Dose: 60 mls/hr Lorazepam (Ativan) 1 mg IVP Q6H PRN PRN Reason: Anxiety Last Admin: 10/15/17 07:05 Dose: 1 mg Pantoprazole Sodium (Protonix Ec Tab) 40 mg PO DAILY [facility] Last Admin: 10/15/17 11:00 Dose: 40 mg Polyethylene Glycol (Miralax) 17 gm NG DAILY [facility] Last Admin: 10/15/17 11:00 Dose: 17 gm - Labs Labs: 10/12/17 11:45 10/13/17 11:45 PT 13.3 SECONDS (9.7-12.2) H 10/07/17 08:23 INR 1.2 10/07/17 08:23 APTT 26 SECONDS (21-34) 10/07/17 08:23 Attending/Attestation - Attestation I have personally seen and examined this patient.: Yes I have fully participated in the care of the patient.: Yes I have reviewed all pertinent clinical information, including history, physical exam and plan: Yes Notes (Text): 10/15/17 17:40 Medical attending: Patient was seen and examined by me, agrees the above note by medical data analyst. I saw the patient together with medical data analyst. Today there was no family member present at bedside. However I was updated by the caseworkers that there hasn't been much change with regards to the family members outlaw on the patient's care. As mentioned previously the family member does not want a PEG tube, and has been rather reluctant to agree to have the patient go to [facility]pc. Considering the patient's history of repeat admissions for traumatically high hypernatremia from severe dehydration my concern is if we discharge the patient that very likely he'll come back in a month very similar situation So at this time were to try to find a fpc that would accept the patient. If the family member is willing to agree to let the patient to fpc this would be most ideal for the patient since he does need a lot more care particularly if she doesn't want a PEG tube Thank you very much, Edis Denton
[2017-10-16] MEDS: Pantoprazole 40 mg EC Tab PO SCH (10:12)
[2017-10-16] MEDS: POLYETHYLENE GLYCOL 3350 17 GM/Dose PACKET NG SCH (10:12)
--- NOTE | 2017-10-16 14:31 | CP.PCM.PN ---
<Enoch Nelson - Last Filed: 10/16/17 17:41> Subjective - Date & Time of Evaluation Date of Evaluation: 10/16/17 Time of Evaluation: 06:31 - Subjective Subjective: Medicine Progress Note: Patient was seen and examined at bedside in the AM. Patient non communicative and grunting today upon examination. Unable to ascertain ROS due to current clinical condition. Objective - Vital Signs/Intake and Output Vital Signs (last 24 hours): Temp Pulse Resp BP Pulse Ox 98.3 F 92 H 20 114/77 100 10/16/17 08:00 10/16/17 08:00 10/16/17 08:00 10/16/17 08:00 10/16/17 08:00 Intake and Output: 10/16/17 10/16/17 06:59 18:59 Intake Total 1080 Output Total 1500 Balance -420 - Medications Medications: Current Medications Divalproex Sodium (Depakote Dr Tab) 125 mg PO BID [facility] Potassium Chloride 10 meq/ (Sodium Chloride) 1,005 mls @ 60 mls/hr IV .[id number] [facility] Last Admin: 10/15/17 21:09 Dose: 60 mls/hr Pantoprazole Sodium (Protonix Ec Tab) 40 mg PO DAILY [facility] Last Admin: 10/16/17 10:12 Dose: 40 mg Polyethylene Glycol (Miralax) 17 gm NG DAILY [facility] Last Admin: 10/16/17 10:12 Dose: 17 gm - Labs Labs: 10/12/17 11:45 10/13/17 11:45 PT 13.3 SECONDS (9.7-12.2) H 10/07/17 08:23 INR 1.2 10/07/17 08:23 APTT 26 SECONDS (21-34) 10/07/17 08:23 - Head Exam Head Exam: ATRAUMATIC, NORMAL INSPECTION, NORMOCEPHALIC - Eye Exam Eye Exam: Normal appearance. absent: Periorbital tenderness Pupil Exam: NORMAL ACCOMODATION. absent: Irregular, Unequal - ENT Exam ENT Exam: Mucous Membranes Moist, Normal Oropharynx - Neck Exam Neck Exam: absent: Lymphadenopathy, Thyromegaly - Respiratory Exam Respiratory Exam: Clear to Ausculation Bilateral, NORMAL BREATHING PATTERN. absent: Chest Wall Tenderness, Prolonged Expiratory Phase, Respiratory Distress - Cardiovascular Exam Cardiovascular Exam: REGULAR RHYTHM, RRR, +S1, +S2. absent: Rubs - GI/Abdominal Exam GI & Abdominal Exam: Soft, Normal Bowel Sounds. absent: Rigid, Hyperactive Bowel Sounds - Extremities Exam Extremities Exam: Normal Inspection. absent: Joint Swelling, Pedal Edema, Tenderness - Back Exam Back Exam: absent: paraspinal tenderness - Neurological Exam Neurological Exam: Abnormal Gait, Altered - Psychiatric Exam Psychiatric exam: Normal Affect, Normal Mood - Skin Skin Exam: Dry, Intact Assessment and Plan - Assessment and Plan (Free Text) Plan: Weakness secondary to Failure to thrive Hold 1/2NS @ 60mls/hr During hospitalization 03/26 the patient was recommended to receive a PEG tube by GI. Initially the patient's signed the consent, however the day of the procedure she refused and the PEG was never placed. Continue NG feedings @ 30 cc/hr per Dietitian recommendations. Ultimate goal is 60cc/hr. Head CT: chornic microvascular changes, atrophy, prominent ventricles, sinus disease Chest -X ray: hyperinflation of the lungs, diffuse increased interstitial lung markings, rib deformity and spine degenerative changes. Abdomen xray: fecal retention Depakote 125 mg BID started today. Attending Dr. Denton discussed case with and case management. Per she would like for the patient to stay here permanently. Ultimately it was decided that would be the goal date for discharge. The refuses subacute rehab, nursing homes, and peg tubes and would like to bring the patient home. has unrealistic patient outcomes Hypernatremia--> Resolved Na 140 today. Possibly secondary to severe dehydration Hold 1/2NS@ 60mls/hr today. Goal: to drop by <10 points in 24 hours * Monitor Na levels closely Leukocytosis ---> Resolved WBC count 8. UA: 3-5 Hyaline casts blood culture (-)x5 days urine culture (-) ELIDA (acute kidney injury)--->Resolved BUN/cr: 10/.7 Possibly secondary to severe dehydration, malnutrition Constipation -Continue Miralax. Will continue to monitor. -Will keep feedings at 30mls/hr until he has a bowel movement. Ultimate goal 60mls/hr. History of traumatic head injury Worsening neurologic deficit Non-verbal for the past two years Urinary and fecal incontinence Not oriented to place and time Prophylactic measure SCD <Eids Denton - Last Filed: 10/16/17 18:29> Objective - Vital Signs/Intake and Output Vital Signs (last 24 hours): Temp Pulse Resp BP Pulse Ox 98.4 F 93 H 20 133/65 97 10/16/17 16:00 10/16/17 16:00 10/16/17 16:00 10/16/17 16:00 10/16/17 16:00 Intake and Output: 10/16/17 10/16/17 06:59 18:59 Intake Total 1080 880 Output Total 1500 1300 Balance -420 -420 - Medications Medications: Current Medications Divalproex Sodium (Depakote Dr Tab) 125 mg PO BID [facility] Last Admin: 10/16/17 17:25 Dose: 125 mg Pantoprazole Sodium (Protonix Ec Tab) 40 mg PO DAILY [facility] Last Admin: 10/16/17 10:12 Dose: 40 mg Polyethylene Glycol (Miralax) 17 gm NG DAILY [facility] Last Admin: 10/16/17 10:12 Dose: 17 gm - Labs Labs: 10/16/17 14:17 10/16/17 14:17 PT 13.3 SECONDS (9.7-12.2) H 10/07/17 08:23 INR 1.2 10/07/17 08:23 APTT 26 SECONDS (21-34) 10/07/17 08:23 Attending/Attestation - Attestation I have personally seen and examined this patient.: Yes I have fully participated in the care of the patient.: Yes I have reviewed all pertinent clinical information, including history, physical exam and plan: Yes Notes (Text): 10/16/17 18:29 Medical attending: Patient was seen and examined by me, reviewed the above note by the medical imaging technologist. I saw the patient with medical imaging technologist. Her on in the day I had a long and seemingly endless discussion with the patient 's . To make a long story short, she does not want the patient to get a PEG tube And she does not want him to go to any [place] facility or rehabilitation I explained to the patient's that if we were to discharge him home that the chances are he'll shortly thereafter returned to the hospital with very similar hypernatremia and acute kidney injury from dehydration and poor by mouth intake. She then tells me that this is preferable than her bring him to a [place] and being collected an overly sedated at a [place] We changed the patient's medication from Ativan over to Depakote. She thinks that the patient will become stronger and be able to walk again I explained to her that my concern is that he has ongoing dementia and unfortunately it will steadily get worse despite what we are doing here. Per my discussion with the patient she seems to have unrealistic expectations that the patient will make a full and complete recovery and become a normal functioning member of society again. I explained to her that my concern was that this was a very unrealistic expectation Try to discharge the patient sometime this week. She asked us to keep the patient here for a prolonged period of time I suspect that this was not possible Thank you very much, Edis Denton
[2017-10-16 14:35] LABS: BASO % 0.1 % (0.0-2.0); EOS # 0.1 K/uL (0.0-0.7); EOS % 1.5 % (0.0-4.0); HEMOGLOBIN 12.8 g/dL (12.0-18.0); LYMPH # 1.1 K/uL (1.0-4.3); LYMPH % 14.1 % (20.0-40.0); MEAN CORPUSCULAR HEMOGLOBIN 25.1 pg (27.0-31.0); MEAN CORPUSCULAR HGB CONC 33.5 g/dL (33.0-37.0); MEAN PLATELET VOLUME 9.6 fL (7.2-11.7); MONO # 0.5 K/uL (0.0-0.8); NEUT # 6.3 K/uL (1.8-7.0); NEUT % 78.3 % (50.0-75.0); NRBC % 0.1 % (0.0-2.0); RBC 5.11 Mil/uL (4.40-5.90); RED CELL DISTRIBUTION WIDTH 16.9 % (11.5-14.5)
[2017-10-16 14:38] LABS: ALB/GLOB RATIO 0.8 (1.0-2.1); ALBUMIN 3.4 g/dL (3.5-5.0); ALT/SGPT 24 U/L (21-72); AST/SGOT 24 U/L (17-59); BLOOD UREA NITROGEN 10 mg/dL (9-20); CALCIUM 8.9 mg/dl (8.6-10.4); GFR AFRICAN-AMERICAN > 60; GFR NON-AFRICAN AMERICAN > 60
[2017-10-16] MEDS: Divalproex 125 mg DR Tab PO SCH (17:25)
[2017-10-17 10:56] LABS: BASO % 0.3 % (0.0-2.0); EOS # 0.1 K/uL (0.0-0.7); EOS % 0.9 % (0.0-4.0); HEMOGLOBIN 12.8 g/dL (12.0-18.0); LYMPH # 1.2 K/uL (1.0-4.3); LYMPH % 12.5 % (20.0-40.0); MEAN CELL VOLUME 74.9 fL (80.0-94.0); MEAN CORPUSCULAR HEMOGLOBIN 25.2 pg (27.0-31.0); MEAN CORPUSCULAR HGB CONC 33.7 g/dL (33.0-37.0); MEAN PLATELET VOLUME 9.1 fL (7.2-11.7); MONO # 0.7 K/uL (0.0-0.8); MONO % 6.7 % (0.0-10.0); NEUT # 7.8 K/uL (1.8-7.0); NEUT % 79.6 % (50.0-75.0); RBC 5.07 Mil/uL (4.40-5.90); WHITE BLOOD COUNT 9.9 K/uL (4.8-10.8)
[2017-10-17] MEDS: POLYETHYLENE GLYCOL 3350 17 GM/Dose PACKET NG SCH (11:00)
[2017-10-17] MEDS: Divalproex 125 mg DR Tab PO SCH ×2 (11:00→17:41)
[2017-10-17] MEDS: Pantoprazole 40 mg EC Tab PO SCH (11:00)
[2017-10-17 11:09] LABS: ALB/GLOB RATIO 0.9 (1.0-2.1); ALBUMIN 3.3 g/dL (3.5-5.0); ALT/SGPT 28 U/L (21-72); AST/SGOT 23 U/L (17-59); BLOOD UREA NITROGEN 11 mg/dL (9-20); CALCIUM 8.7 mg/dl (8.6-10.4); GFR AFRICAN-AMERICAN > 60; GFR NON-AFRICAN AMERICAN > 60
--- NOTE | 2017-10-17 12:40 | CP.PCM.PN ---
<Enoch Nelson - Last Filed: 10/17/17 17:44> Subjective - Date & Time of Evaluation Date of Evaluation: 10/17/17 Time of Evaluation: 06:40 - Subjective Subjective: Medicine Progress Note: Patient was seen and examined at bedside in the AM. Patient non communicative and grunting today upon examination. Per nursing the patient was agitated overnight and was given .5mg Ativan to calm him down. Unable to ascertain ROS due to current clinical condition. Objective - Vital Signs/Intake and Output Vital Signs (last 24 hours): Temp Pulse Resp BP Pulse Ox 98.5 F 92 H 20 121/78 98 10/16/17 23:44 10/16/17 23:44 10/16/17 23:44 10/16/17 23:44 10/16/17 23:44 Intake and Output: 10/17/17 10/17/17 06:59 18:59 Intake Total 720 Output Total 1900 Balance -1180 - Medications Medications: Current Medications Divalproex Sodium (Depakote Dr Tab) 125 mg PO BID [facility] Last Admin: 10/17/17 11:00 Dose: 125 mg Pantoprazole Sodium (Protonix Ec Tab) 40 mg PO DAILY [facility] Last Admin: 10/17/17 11:00 Dose: 40 mg Polyethylene Glycol (Miralax) 17 gm NG DAILY [facility] Last Admin: 10/17/17 11:00 Dose: 17 gm - Labs Labs: 10/17/17 10:41 10/17/17 10:41 PT 13.3 SECONDS (9.7-12.2) H 10/07/17 08:23 INR 1.2 10/07/17 08:23 APTT 26 SECONDS (21-34) 10/07/17 08:23 - Head Exam Head Exam: ATRAUMATIC, NORMAL INSPECTION, NORMOCEPHALIC - Eye Exam Eye Exam: EOMI, Normal appearance. absent: Periorbital tenderness Pupil Exam: NORMAL ACCOMODATION, PERRL. absent: Irregular, Unequal - ENT Exam ENT Exam: Mucous Membranes Moist, Normal Exam, Normal Oropharynx - Neck Exam Neck Exam: Normal Inspection. absent: Lymphadenopathy, Thyromegaly - Respiratory Exam Respiratory Exam: Clear to Ausculation Bilateral, NORMAL BREATHING PATTERN. absent: Chest Wall Tenderness, Prolonged Expiratory Phase, Respiratory Distress - Cardiovascular Exam Cardiovascular Exam: REGULAR RHYTHM, +S1, +S2 - GI/Abdominal Exam GI & Abdominal Exam: Soft, Normal Bowel Sounds - Extremities Exam Extremities Exam: Normal Inspection. absent: Pedal Edema - Back Exam Back Exam: NORMAL INSPECTION. absent: CVA tenderness (R), paraspinal tenderness - Neurological Exam Neurological Exam: Altered, Awake - Psychiatric Exam Psychiatric exam: Normal Affect, Normal Mood - Skin Skin Exam: Dry Assessment and Plan - Assessment and Plan (Free Text) Plan: Weakness secondary to Failure to thrive Hold 1/2NS @ 60mls/hr During hospitalization 03/26 the patient was recommended to receive a PEG tube by GI. Initially the patient's signed the consent, however the day of the procedure she refused and the PEG was never placed. Continue NG feedings @ 30 cc/hr per Dietitian recommendations. Ultimate goal is 60cc/hr. Head CT: chornic microvascular changes, atrophy, prominent ventricles, sinus disease Chest -X ray: hyperinflation of the lungs, diffuse increased interstitial lung markings, rib deformity and spine degenerative changes. Abdomen xray: fecal retention Continue Depakote 125 mg BID started. -Overnight patient was agigtated and he was given .5mg Ativan one time dose. Attending Dr. Denton discussed case with and case management. Per she would like for the patient to stay here permanently. Ultimately it was decided that would be the goal date for discharge. The refuses subacute rehab, nursing homes, and peg tubes and would like to bring the patient home. has unrealistic about patient outcomes. Hypernatremia--> Resolved Na 140 on last blood draw. Possibly secondary to severe dehydration Hold 1/2NS@ 60mls/hr today. Goal: to drop by <10 points in 24 hours * Monitor Na levels closely Leukocytosis ---> Resolved WBC count 8. UA: 3-5 Hyaline casts blood culture (-)x5 days urine culture (-) ELIDA (acute kidney injury)--->Resolved Possibly secondary to severe dehydration, malnutrition Constipation -Continue Miralax. Will continue to monitor. -Will keep feedings at 30mls/hr until he has a bowel movement. Ultimate goal 60mls/hr. History of traumatic head injury Worsening neurologic deficit Non-verbal for the past two years Urinary and fecal incontinence Not oriented to place and time Prophylactic measure SCD <Denton,Peter H - Last Filed: 10/18/17 07:32> Objective - Vital Signs/Intake and Output Vital Signs (last 24 hours): Temp Pulse Resp BP Pulse Ox 97.9 F 89 20 129/78 98 10/17/17 23:48 10/17/17 23:48 10/17/17 23:48 10/17/17 23:48 10/17/17 23:48 Intake and Output: 10/18/17 10/18/17 06:59 18:59 Intake Total 250 Output Total 250 Balance 0 - Medications Medications: Current Medications Divalproex Sodium (Depakote Dr Tab) 125 mg PO BID [facility] Last Admin: 10/17/17 17:41 Dose: 125 mg Pantoprazole Sodium (Protonix Ec Tab) 40 mg PO DAILY [facility] Last Admin: 10/17/17 11:00 Dose: 40 mg Polyethylene Glycol (Miralax) 17 gm NG DAILY [facility] Last Admin: 10/17/17 11:00 Dose: 17 gm - Labs Labs: 10/17/17 10:41 10/17/17 10:41 PT 13.3 SECONDS (9.7-12.2) H 10/07/17 08:23 INR 1.2 10/07/17 08:23 APTT 26 SECONDS (21-34) 10/07/17 08:23 Attending/Attestation - Attestation I have personally seen and examined this patient.: Yes I have fully participated in the care of the patient.: Yes I have reviewed all pertinent clinical information, including history, physical exam and plan: Yes Notes (Text): 10/18/17 07:32 Medical attending: Patient was seen and examined by me, we saw together the patient with the medical housekeeper. I reviewed the above note by medical housekeeper and agree I do not have much new information to report today with regards to Mr. Mckeon. He remains nonverbal as well as bedbound. Yesterday I stop the IV Ativan and the staff are telling me that he's appears to be quite agitated to them. When I came and saw the patient I asked the staff that was the extent of the agitation and they explained to me that he's been moving around in his bed very much. However he does not appear to be a risk falling out of meds we've elected to keep him off the Ativan and to continue the Depakote As mentioned previously his sodium levels have now been stabilized for the past several days. I did not have an extensive discussion with the patient's today. I had a very extensive discussion the previous day. As reported before she has unrealistic expectations. She believes that her will get up and walk and become a fully functioning member of society I tried to explain that this was not a realistic expectation As previously mentioned shes does not want a PEG tube, she does not want him to go to a custodial Edis Denton
--- NOTE | 2017-10-18 10:42 | CP.PCM.DIS ---
Provider - Provider Date of Admission: 10/07/17 11:07 Attending physician: Edis Denton DO Primary care physician: Unknown Consults: Renal: Dr. Abarca Psych: Dr. Brewer Palliative:Annia Time Spent in preparation of Discharge (in minutes): 45 Hospital Course - Lab Results Lab Results: Micro Results 10/07/17 08:13 Blood Blood Culture - Final NO GROWTH AFTER 5 DAYS 10/07/17 08:13 Blood Gram Stain - Final TEST NOT PERFORMED 10/07/17 08:13 Blood Blood Culture - Final NO GROWTH AFTER 5 DAYS 10/07/17 08:13 Blood Gram Stain - Final TEST NOT PERFORMED 10/07/17 15:52 Naris MRSA Culture (Admit) - Final MRSA NOT DETECTED 10/07/17 08:00 Urine Urine Culture - Final No Growth (<1,000 CFU/ML) Most Recent Lab Values WBC 9.9 K/uL (4.8-10.8) 10/17/17 10:41 RBC 5.07 Mil/uL (4.40-5.90) 10/17/17 10:41 Hgb 12.8 g/dL (12.0-18.0) 10/17/17 10:41 Hct 38.0 % (35.0-51.0) 10/17/17 10:41 MCV 74.9 fL (80.0-94.0) L 10/17/17 10:41 MCH 25.2 pg (27.0-31.0) L 10/17/17 10:41 MCHC 33.7 g/dL (33.0-37.0) 10/17/17 10:41 RDW 17.0 % (11.5-14.5) H 10/17/17 10:41 Plt Count 324 K/uL (130-400) 10/17/17 10:41 MPV 9.1 fL (7.2-11.7) 10/17/17 10:41 Neut % (Auto) 79.6 % (50.0-75.0) H 10/17/17 10:41 Lymph % (Auto) 12.5 % (20.0-40.0) L 10/17/17 10:41 [place] % (Auto) 6.7 % (0.0-10.0) 10/17/17 10:41 Eos % (Auto) 0.9 % (0.0-4.0) 10/17/17 10:41 Baso % (Auto) 0.3 % (0.0-2.0) 10/17/17 10:41 Neut # (Auto) 7.8 K/uL (1.8-7.0) H 10/17/17 10:41 Lymph # (Auto) 1.2 K/uL (1.0-4.3) 10/17/17 10:41 [place] # (Auto) 0.7 K/uL (0.0-0.8) 10/17/17 10:41 Eos # (Auto) 0.1 K/uL (0.0-0.7) 10/17/17 10:41 Baso # (Auto) 0.0 K/uL (0.0-0.2) 10/17/17 10:41 Neutrophils % (Manual) 82 % (50-75) H 10/10/17 08:23 Band Neutrophils % 6 % (0-2) H 10/10/17 08:23 Lymphocytes % (Manual) 6 % (20-40) L 10/10/17 08:23 Reactive Lymphs % 1 % (0-0) H 10/10/17 08:23 Monocytes % (Manual) 2 % (0-10) 10/10/17 08:23 Eosinophils % (Manual) 3 % (0-4) 10/10/17 08:23 Toxic Granulation Present 10/07/17 17:23 Large Platelets Present 10/07/17 17:23 Platelet Estimate Decreased (NORMAL) L 10/10/17 08:23 Polychromasia Slight 10/07/17 08:23 Hypochromasia (manual) Slight 10/07/17 17:23 Microcytosis (manual) Slight 10/07/17 17:23 Target Cells Slight 10/08/17 06:25 Anisocytosis (manual) Slight 10/10/17 08:23 PT 13.3 SECONDS (9.7-12.2) H 10/07/17 08:23 INR 1.2 10/07/17 08:23 APTT 26 SECONDS (21-34) 10/07/17 08:23 D-Dimer, Quantitative 1420 ng/mlDDU (0-243) H 10/07/17 10:01 pO2 23 mm/Hg (30-55) L 10/07/17 09:14 VBG pH 7.37 (7.32-7.43) 10/07/17 09:14 VBG pCO2 53 mmHg (40-60) 10/07/17 09:14 VBG HCO3 26.4 mmol/L 10/07/17 09:14 VBG Total CO2 32.2 mmol/L (22-28) H 10/07/17 09:14 VBG O2 Sat (Calc) 41.6 % (40-65) 10/07/17 09:14 VBG Base Excess 4.0 mmol/L (0.0-2.0) H 10/07/17 09:14 VBG Potassium 4.2 mmol/L (3.6-5.2) 10/07/17 09:14 Sodium 180.0 mmol/l (132-148) H* 10/07/17 09:14 Chloride 138.0 mmol/L (98-107) H 10/07/17 09:14 Glucose 151 mg/dl (75-110) H 10/07/17 09:14 Lactate 4.3 mmol/L (0.7-2.1) H* 10/07/17 09:14 Crit Value Called To Dr pitt 10/07/17 09:14 Crit Value Called By Heather juarez manager union 10/07/17 09:14 Crit Value Read Back Y 10/07/17 09:14 Blood Gas Notified Time 923 10/07/17 09:14 Sodium 138 mmol/L (132-148) 10/17/17 10:41 Potassium 4.0 mmol/L (3.6-5.2) 10/17/17 10:41 Chloride 102 mmol/L (98-107) 10/17/17 10:41 Carbon Dioxide 29 mmol/L (22-30) 10/17/17 10:41 Anion Gap 12 (10-20) 10/17/17 10:41 BUN 11 mg/dL (9-20) 10/17/17 10:41 Creatinine 0.7 mg/dL (0.8-1.5) L 10/17/17 10:41 Est GFR ( Amer) > 60 10/17/17 10:41 Est GFR (Non-Af Amer) > 60 10/17/17 10:41 POC Glucose (mg/dL) 82 mg/dL (65-110) 10/18/17 07:31 Random Glucose 109 mg/dL (75-110) 10/17/17 10:41 Lactic Acid 2.3 mmol/L (0.7-2.1) H 10/07/17 17:23 Calcium 8.7 mg/dl (8.6-10.4) 10/17/17 10:41 Phosphorus 3.1 mg/dL (2.5-4.5) 10/13/17 11:45 Magnesium 2.2 mg/dL (1.6-2.3) 10/13/17 11:45 Total Bilirubin 0.4 mg/dL (0.2-1.3) 10/17/17 10:41 AST 23 U/L (17-59) 10/17/17 10:41 ALT 28 U/L (21-72) 10/17/17 10:41 Alkaline Phosphatase 69 U/L (38-126) 10/17/17 10:41 Troponin I 0.0590 ng/mL (0.00-0.120) 10/07/17 08:23 Total Protein 7.1 g/dL (6.3-8.3) 10/17/17 10:41 Albumin 3.3 g/dL (3.5-5.0) L 10/17/17 10:41 Globulin 3.8 gm/dL (2.2-3.9) 10/17/17 10:41 Albumin/Globulin Ratio 0.9 (1.0-2.1) L 10/17/17 10:41 Lipase 53 U/L (23-300) 10/07/17 17:23 Venous Blood Potassium 4.2 mmol/L (3.6-5.2) 10/07/17 09:14 Urine Color Yellow (YELLOW) 10/07/17 08:52 Urine Clarity Clear (Clear) 10/07/17 08:52 Urine pH 5.0 (5.0-8.0) 10/07/17 08:52 Ur Specific [place] 1.019 (1.003-1.030) 10/07/17 08:52 Urine Protein Negative mg/dL (NEGATIVE) 10/07/17 08:52 Urine Glucose (UA) Normal mg/dL (Normal) 10/07/17 08:52 Urine Ketones Negative mg/dL (NEGATIVE) 10/07/17 08:52 Urine Blood Negative (NEGATIVE) 10/07/17 08:52 Urine Nitrate Negative (NEGATIVE) 10/07/17 08:52 Urine Bilirubin Negative (NEGATIVE) 10/07/17 08:52 Urine Urobilinogen 2.0 mg/dL (0.2-1.0) 10/07/17 08:52 Ur Leukocyte Esterase Neg John/uL (Negative) 10/07/17 08:52 Urine WBC (Auto) 1 /hpf (0-5) 10/07/17 08:52 Urine RBC (Auto) 1 /hpf (0-3) 10/07/17 08:52 Ur Squamous Epith Cells < 1 /hpf (0-5) 10/07/17 08:52 Hyaline Casts 3-5 /lpf (0-2) H 10/07/17 08:52 Random Vancomycin 7.35 ug/mL 10/10/17 08:23 Influenza Typ A,B (EIA) Negative for flu a/b (NEGATIVE) 10/07/17 10:05 - Hospital Course Hospital Course: Discharge Summary PMD:Denies Consults: Nephrology (Dr. Abarca),Psychiatry: Dr. Brewer, Palliative: Annia PRINCIPAL DISCHARGE DIAGNOSES: Hypernatremia CVA Urinary and fecal incontinence Hypertension CKD CC: "Weakness, Neurological Deficit " HISTORY OF PRESENT ILLNESS:Weakness 61 year old male with a Hx of head injury in 2006 who was brought in by ambulance for increasing dementia. Per previous charts patients is the primary caregiver. At the time of admission wasn't present. Patient is non-verbal and also suffers from incontinence. Unable to asses patient's curent situation as caregiver wasn't present at the time of admission. ROS: Unable to acertain due to patient's inablity to speak. Patient is non-verbal and was not at bedside during the encounter therefore HPI as per ED and chart check. PMD:Unknown PMHX: CVA ( Significant neurological deficit), Urinary and fecal incontinence, Hypertension, CKD PSHX: Herniorrhaphy FHx:Unknown Family Hx Medications: Uknown Allergies: NKDA Social Hx: Lives with , who is the solid waste engineer, former smoker SUMMARY OF COURSE: Kimi Tan is a 66-year-old female who was admitted to [facility] on 10/09/2017-10/12/2017 for CHF exacerbation. Her past medical history of note includes CAD, IN, HTN, diabetes, CKD, and hyperlipidemia. While at the hospital, she was had her blood pressure medications revised and she had imaging done. Imaging results are stated below. Cardiology and nephrology was consulted. Cardiology consult, Dr. Dugan, says to continue medical management since Ms. Tan has denied further procedures including cardiac catheterizations. Nephrology consult, Dr. Abarca, says that she needs dialysis. She is to continue medications and follow up with cardiology and nephrology in [place] for hemodialysis. Imaging: CXR : hyperinflation of the lungs, diffused increased interstitial markings, rib deformity of lateral right 9th rib Head ct: chronic microvascular ischmic changes, atrophy, prominent ventricles Abdominal xray: moderate to severe fecal retention in colon 1.Patient discharged home. Patient's refused residential facilities and wanted to have the patient discharged home. 2.Advised patient to return to hospital for any new or worsening symptoms. Discharge Medications: 1.Depakote 125mg BID Daily, #60 Discharge Exam - Head Exam Head Exam: ATRAUMATIC, NORMAL INSPECTION, NORMOCEPHALIC - Eye Exam Eye Exam: EOMI, Normal appearance - ENT Exam ENT Exam: Mucous Membranes Moist, Normal Oropharynx - Respiratory Exam Respiratory Exam: Clear to PA & Lateral, NORMAL BREATHING PATTERN, UNREMARKABLE - Cardiovascular Exam Cardiovascular Exam: REGULAR RHYTHM, +S1, +S2 - GI/Abdominal Exam GI & Abdominal Exam: Normal Bowel Sounds, Unremarkable. absent: Organomegaly - Back Exam Back exam: NORMAL INSPECTION. absent: CVA tenderness (L), CVA tenderness (R), paraspinal tenderness - Neurological Exam Neurological exam: Altered - Psychiatric Exam Psychiatric exam: Agitated - Skin Skin Exam: Dry, Intact, Normal Color, Warm Discharge Plan - Discharge Medications Prescriptions: Divalproex [Depakote DR TAB] 125 mg PO BID #60 tab - Follow Up Plan Condition: SERIOUS Disposition: HOME/ ROUTINE
[2017-10-18] MEDS: POLYETHYLENE GLYCOL 3350 17 GM/Dose PACKET NG SCH (10:46)
[2017-10-18] MEDS: Pantoprazole 40 mg EC Tab PO SCH (10:46)
[2017-10-18] MEDS: Divalproex 125 mg DR Tab PO SCH ×2 (10:46→18:05)
[2017-10-18 11:49] LABS: BASO % 0.3 % (0.0-2.0); EOS # 0.1 K/uL (0.0-0.7); EOS % 1.3 % (0.0-4.0); HEMOGLOBIN 12.7 g/dL (12.0-18.0); LYMPH # 1.2 K/uL (1.0-4.3); LYMPH % 15.8 % (20.0-40.0); MEAN CELL VOLUME 75.3 fL (80.0-94.0); MEAN CORPUSCULAR HEMOGLOBIN 25.5 pg (27.0-31.0); MEAN CORPUSCULAR HGB CONC 33.9 g/dL (33.0-37.0); MEAN PLATELET VOLUME 9.1 fL (7.2-11.7); MONO # 0.6 K/uL (0.0-0.8); MONO % 7.5 % (0.0-10.0); NEUT # 5.6 K/uL (1.8-7.0); NEUT % 75.1 % (50.0-75.0); RBC 4.96 Mil/uL (4.40-5.90); WHITE BLOOD COUNT 7.5 K/uL (4.8-10.8)
[2017-10-18 11:58] LABS: ALB/GLOB RATIO 0.8 (1.0-2.1); ALBUMIN 3.3 g/dL (3.5-5.0); ALT/SGPT 25 U/L (21-72); AST/SGOT 21 U/L (17-59); BLOOD UREA NITROGEN 13 mg/dL (9-20); CALCIUM 8.9 mg/dl (8.6-10.4); GFR AFRICAN-AMERICAN > 60; GFR NON-AFRICAN AMERICAN > 60
--- NOTE | 2017-10-18 17:06 | CP.PCM.PN ---
<Enoch Nelson - Last Filed: 10/18/17 17:43> Subjective - Date & Time of Evaluation Date of Evaluation: 10/18/17 Time of Evaluation: 08:06 - Subjective Subjective: Medicine Progress Note: Patient was seen and examined at bedside in the AM. Patient non communicative and grunting today upon examination. Per nursing the patient was agitated overnight and was given .5mg Ativan again to calm him down. Unable to ascertain ROS due to current clinical condition. Objective - Vital Signs/Intake and Output Vital Signs (last 24 hours): Temp Pulse Resp BP Pulse Ox 97.9 F 88 20 130/74 96 10/18/17 16:00 10/18/17 16:00 10/18/17 16:00 10/18/17 16:00 10/18/17 16:00 Intake and Output: 10/18/17 10/18/17 06:59 18:59 Intake Total 250 310 Output Total 250 700 Balance 0 -390 - Medications Medications: Current Medications Divalproex Sodium (Depakote Dr Tab) 125 mg PO BID [facility] Last Admin: 10/18/17 10:46 Dose: 125 mg Pantoprazole Sodium (Protonix Ec Tab) 40 mg PO DAILY [facility] Last Admin: 10/18/17 10:46 Dose: 40 mg Polyethylene Glycol (Miralax) 17 gm NG DAILY [facility] Last Admin: 10/18/17 10:46 Dose: 17 gm - Labs Labs: 10/18/17 11:30 10/18/17 11:30 PT 13.3 SECONDS (9.7-12.2) H 10/07/17 08:23 INR 1.2 10/07/17 08:23 APTT 26 SECONDS (21-34) 10/07/17 08:23 - Head Exam Head Exam: ATRAUMATIC, NORMAL INSPECTION, NORMOCEPHALIC - Eye Exam Eye Exam: EOMI, Normal appearance, PERRL. absent: Periorbital tenderness Pupil Exam: NORMAL ACCOMODATION, PERRL. absent: Irregular, Unequal - ENT Exam ENT Exam: Mucous Membranes Moist, Normal Exam, Normal Oropharynx - Neck Exam Neck Exam: Full ROM, Normal Inspection. absent: Lymphadenopathy, Thyromegaly - Respiratory Exam Respiratory Exam: Clear to Ausculation Bilateral, NORMAL BREATHING PATTERN. absent: Rhonchi - Cardiovascular Exam Cardiovascular Exam: REGULAR RHYTHM, +S1, +S2 - GI/Abdominal Exam GI & Abdominal Exam: Soft, Normal Bowel Sounds. absent: Rigid, Hyperactive Bowel Sounds - Extremities Exam Extremities Exam: Full ROM, Normal Inspection. absent: Joint Swelling, Pedal Edema - Back Exam Back Exam: NORMAL INSPECTION. absent: CVA tenderness (L), CVA tenderness (R), paraspinal tenderness - Neurological Exam Neurological Exam: Abnormal Gait, Altered, Awake, Oriented x3 - Psychiatric Exam Psychiatric exam: Agitated - Skin Skin Exam: Dry, Intact, Normal Color, Warm Assessment and Plan - Assessment and Plan (Free Text) Plan: Weakness secondary to Failure to thrive Hold 1/2NS @ 60mls/hr During hospitalization 03/26 the patient was recommended to receive a PEG tube by GI. Initially the patient's signed the consent, however the day of the procedure she refused and the PEG was never placed. Continue NG feedings @ 30 cc/hr per Dietitian recommendations. Ultimate goal is 60cc/hr. Head CT: chornic microvascular changes, atrophy, prominent ventricles, sinus disease Chest -X ray: hyperinflation of the lungs, diffuse increased interstitial lung markings, rib deformity and spine degenerative changes. Abdomen xray: fecal retention Continue Depakote 125 mg BID started. -Overnight patient was agigtated and he was given .5mg Ativan one time dose. Attending Dr. Denton discussed case with and case management. Per she would like for the patient to stay here permanently. Ultimately it was decided that would be the goal date for discharge. The refuses subacute rehab, nursing homes, and peg tubes and would like to bring the patient home. has unrealistic about patient outcomes. Hypernatremia--> Resolved Na 140 on last blood draw. Possibly secondary to severe dehydration Hold 1/2NS@ 60mls/hr today. Goal: to drop by <10 points in 24 hours * Monitor Na levels closely Leukocytosis ---> Resolved WBC count 8. UA: 3-5 Hyaline casts blood culture (-)x5 days urine culture (-) ELIDA (acute kidney injury)--->Resolved Possibly secondary to severe dehydration, malnutrition Constipation -Continue Miralax. Will continue to monitor. -Will keep feedings at 30mls/hr until he has a bowel movement. Ultimate goal 60mls/hr. History of traumatic head injury Worsening neurologic deficit Non-verbal for the past two years Urinary and fecal incontinence Not oriented to place and time Prophylactic measure SCD Disposition: Attempted to discharge patient today. refused discharge today. Will follow up tomorrow for further recommendations. <Edis Denton Nishant - Last Filed: 10/18/17 17:50> Objective - Vital Signs/Intake and Output Vital Signs (last 24 hours): Temp Pulse Resp BP Pulse Ox 97.9 F 88 20 130/74 96 10/18/17 16:00 10/18/17 16:00 10/18/17 16:00 10/18/17 16:00 10/18/17 16:00 Intake and Output: 10/18/17 10/18/17 06:59 18:59 Intake Total 250 310 Output Total 250 700 Balance 0 -390 - Medications Medications: Current Medications Divalproex Sodium (Depakote Dr Tab) 125 mg PO BID [facility] Last Admin: 10/18/17 10:46 Dose: 125 mg Pantoprazole Sodium (Protonix Ec Tab) 40 mg PO DAILY [facility] Last Admin: 10/18/17 10:46 Dose: 40 mg Polyethylene Glycol (Miralax) 17 gm NG DAILY [facility] Last Admin: 10/18/17 10:46 Dose: 17 gm - Labs Labs: 10/18/17 11:30 10/18/17 11:30 PT 13.3 SECONDS (9.7-12.2) H 10/07/17 08:23 INR 1.2 10/07/17 08:23 APTT 26 SECONDS (21-34) 10/07/17 08:23 Attending/Attestation - Attestation I have personally seen and examined this patient.: Yes I have fully participated in the care of the patient.: Yes I have reviewed all pertinent clinical information, including history, physical exam and plan: Yes Notes (Text): 10/18/17 17:50 Medical attending: Patient was seen and examined by me, agrees the above note by medical tech. So we tried to discharge the patient today. However from what I understand the family member (the patient's refused) As mentioned previously she refuses to let him go to a jail. She also refuses a PEG tube as well. She would like a new neurology evaluation and she also beleives that he will be able to walk again and become functional again. We will work with case workers again tommorow. I'm not suprised that is doing this. Our conversations with her in the two days ago did not go very far. Thank you very much, Edis Denton
[2017-10-19 07:47] VITALS: RESP 20
[2017-10-19] MEDS: Divalproex 125 mg DR Tab PO SCH ×2 (10:23→17:45)
[2017-10-19] MEDS: POLYETHYLENE GLYCOL 3350 17 GM/Dose PACKET NG SCH (10:24)
[2017-10-19] MEDS: Pantoprazole 40 mg EC Tab PO SCH (10:24)
--- NOTE | 2017-10-19 10:49 | CP.PCM.PN ---
<Shahzad Delgadillo - Last Filed: 10/19/17 18:58> Subjective - Date & Time of Evaluation Date of Evaluation: 10/19/17 Time of Evaluation: 14:11 - Subjective Subjective: PGY 2 Medicine Note- Dr. Denton's service Patient seen and examined in no acute apparent distress. Per nursing, patient was thrashing about earlier in the bed; but he later calmed down and responded to Ativan. An appeal was made a day earlier in hopes of lengthening patient's hospital stay as requested by his ; however so denied. a result, josue' s became more agreeable to rehab options. Patient witnessed walking with assistance in the hallway. Patient still remains moreso non-verbal- utering grunting type sounds. At this point, a full ROS cannot be obtained verbally. Objective - Vital Signs/Intake and Output Vital Signs (last 24 hours): Temp Pulse Resp BP Pulse Ox 98.0 F 87 20 125/78 98 10/19/17 07:46 10/19/17 07:46 10/19/17 07:46 10/19/17 07:46 10/19/17 07:46 Intake and Output: 10/19/17 10/19/17 06:59 18:59 Intake Total 500 Output Total 700 Balance -200 - Medications Medications: Current Medications Divalproex Sodium (Depakote Dr Tab) 125 mg PO BID [facility] Last Admin: 10/19/17 10:23 Dose: 125 mg Pantoprazole Sodium (Protonix Ec Tab) 40 mg PO DAILY [facility] Last Admin: 10/19/17 10:24 Dose: 40 mg Polyethylene Glycol (Miralax) 17 gm NG DAILY [facility] Last Admin: 10/19/17 10:24 Dose: 17 gm - Labs Labs: 10/18/17 11:30 10/18/17 11:30 PT 13.3 SECONDS (9.7-12.2) H 10/07/17 08:23 INR 1.2 10/07/17 08:23 APTT 26 SECONDS (21-34) 10/07/17 08:23 - Constitutional Appears: Non-toxic, No Acute Distress - Head Exam Head Exam: ATRAUMATIC, NORMAL INSPECTION - Eye Exam Eye Exam: Normal appearance - Neck Exam Neck Exam: Full ROM - Respiratory Exam Respiratory Exam: NORMAL BREATHING PATTERN - Cardiovascular Exam Cardiovascular Exam: +S1, +S2 - GI/Abdominal Exam GI & Abdominal Exam: Soft - Extremities Exam Extremities Exam: Full ROM - Back Exam Back Exam: Full ROM - Neurological Exam Neurological Exam: Awake - Psychiatric Exam Psychiatric exam: Flat Affect - Skin Skin Exam: Dry, Warm Assessment and Plan - Assessment and Plan (Free Text) Assessment: Weakness Secondary to failure to thrive During prior hospitalization, the patient was recommended to receive a PEG tube by GI. Initially the patient's signed the consent, however the day of the procedure she refused and the PEG was never placed. Continue NG feedings @ 30 cc/hr per Dietitian recommendations. Ultimate goal is 60cc/hr. Head CT: chronic microvascular changes, atrophy, prominent ventricles, sinus disease Chest -X ray: hyperinflation of the lungs, diffuse increased interstitial lung markings, rib deformity and spine degenerative changes. Abdomen xray: fecal retention Continue Depakote 125 mg BID Patient reportedly agitated and given 0.5mg Ativan one time dose. Hypernatremia--> Resolved Resolved as of last lab draws Possibly secondary to severe dehydration Leukocytosis ---> Resolved Stable and resolved No lab draws at this time - in anticipation for discharge planning to rehab ELIDA (acute kidney injury)--->Resolved Resolved Possibly secondary to severe dehydration, malnutrition Constipation -Continue Miralax. Will continue to monitor. -Will keep feedings at 30mls/hr until he has a bowel movement. Ultimate goal 60mls/hr. History of traumatic head injury Worsening neurologic deficit Non-verbal for the past two years Urinary and fecal incontinence Not oriented to place and time Prophylactic measure SCDs Disposition: Appeal denied. Now attempting placement at rehab since is now agreeable. Awaiting authorization and approval. Afterwards, will discharge in hopes of providing patient with the best continuing care going ahead. <Edis Denton - Last Filed: 10/20/17 06:56> Objective - Vital Signs/Intake and Output Vital Signs (last 24 hours): Temp Pulse Resp BP Pulse Ox 97.9 F 89 20 122/72 98 10/20/17 00:00 10/20/17 00:00 10/20/17 00:00 10/20/17 00:00 10/20/17 00:00 Intake and Output: 10/19/17 10/20/17 18:59 06:59 Intake Total 300 300 Output Total 350 Balance -50 300 - Medications Medications: Current Medications Divalproex Sodium (Depakote Dr Tab) 125 mg PO BID [facility] Last Admin: 10/19/17 17:45 Dose: 125 mg Pantoprazole Sodium (Protonix Ec Tab) 40 mg PO DAILY [facility] Last Admin: 10/19/17 10:24 Dose: 40 mg Polyethylene Glycol (Miralax) 17 gm NG DAILY [facility] Last Admin: 10/19/17 10:24 Dose: 17 gm - Labs Labs: 10/18/17 11:30 10/18/17 11:30 PT 13.3 SECONDS (9.7-12.2) H 10/07/17 08:23 INR 1.2 10/07/17 08:23 APTT 26 SECONDS (21-34) 10/07/17 08:23 Attending/Attestation - Attestation I have personally seen and examined this patient.: Yes I have fully participated in the care of the patient.: Yes I have reviewed all pertinent clinical information, including history, physical exam and plan: Yes Notes (Text): Medical attending: Patient was seen and examined by me, I saw the patient together with the medical staff assistant. I reviewed the above note by medical staff assistant agree. Today we saw the patient on rolling walker with physical therapy he was able to move around very slowly under his own power around the entire hospital floor. This is my first time actually seen the patient to this. Many times he is not able to follow any commands by physical therapy it seems that this made it very difficult for them to try to get him to participate with any physical therapy. We initially wanted to discharge the patient the previous day however the patient's was present and refused. I spoke with the caseworkers and she had appealed it however later on during the day I received word that the appeal was declined. The patient's explained that she understood and that she would be bringing him back home. Per my discussion with the caseworkers I asked when the patient should be placed in for discharge candidate explained that we should did inform 10/20/2017 thank you Edis Denton
[2017-10-20 00:04] VITALS: O2SAT 98
--- NOTE | 2017-10-20 09:25 | CP.PCM.DIS ---
<Iggy Rodrigues - Last Filed: 10/20/17 09:54> Provider - Provider Date of Admission: 10/07/17 11:07 Attending physician: Edis Denton DO Consults: Nephrology-Dr. Abarca Psychiatry-Dr. Brewer Time Spent in preparation of Discharge (in minutes): 50 Diagnosis - Discharge Diagnosis (1) Hypernatremia Status: Resolved (2) ELIDA (acute kidney injury) Status: Resolved (3) Failure to thrive Status: Chronic (4) Weakness Status: Chronic (5) History of traumatic head injury Status: Chronic (6) Leucocytosis Status: Resolved Hospital Course - Lab Results Lab Results: Micro Results 10/07/17 08:13 Blood Blood Culture - Final NO GROWTH AFTER 5 DAYS 10/07/17 08:13 Blood Gram Stain - Final TEST NOT PERFORMED 10/07/17 08:13 Blood Blood Culture - Final NO GROWTH AFTER 5 DAYS 10/07/17 08:13 Blood Gram Stain - Final TEST NOT PERFORMED 10/07/17 15:52 Naris MRSA Culture (Admit) - Final MRSA NOT DETECTED 10/07/17 08:00 Urine Urine Culture - Final No Growth (<1,000 CFU/ML) Most Recent Lab Values WBC 7.5 K/uL (4.8-10.8) 10/18/17 11:30 RBC 4.96 Mil/uL (4.40-5.90) 10/18/17 11:30 Hgb 12.7 g/dL (12.0-18.0) 10/18/17 11:30 Hct 37.3 % (35.0-51.0) 10/18/17 11:30 MCV 75.3 fL (80.0-94.0) L 10/18/17 11:30 MCH 25.5 pg (27.0-31.0) L 10/18/17 11:30 MCHC 33.9 g/dL (33.0-37.0) 10/18/17 11:30 RDW 17.0 % (11.5-14.5) H 10/18/17 11:30 Plt Count 353 K/uL (130-400) 10/18/17 11:30 MPV 9.1 fL (7.2-11.7) 10/18/17 11:30 Neut % (Auto) 75.1 % (50.0-75.0) H 10/18/17 11:30 Lymph % (Auto) 15.8 % (20.0-40.0) L 10/18/17 11:30 [place] % (Auto) 7.5 % (0.0-10.0) 10/18/17 11:30 Eos % (Auto) 1.3 % (0.0-4.0) 10/18/17 11:30 Baso % (Auto) 0.3 % (0.0-2.0) 10/18/17 11:30 Neut # (Auto) 5.6 K/uL (1.8-7.0) 10/18/17 11:30 Lymph # (Auto) 1.2 K/uL (1.0-4.3) 10/18/17 11:30 [place] # (Auto) 0.6 K/uL (0.0-0.8) 10/18/17 11:30 Eos # (Auto) 0.1 K/uL (0.0-0.7) 10/18/17 11:30 Baso # (Auto) 0.0 K/uL (0.0-0.2) 10/18/17 11:30 Neutrophils % (Manual) 82 % (50-75) H 10/10/17 08:23 Band Neutrophils % 6 % (0-2) H 10/10/17 08:23 Lymphocytes % (Manual) 6 % (20-40) L 10/10/17 08:23 Reactive Lymphs % 1 % (0-0) H 10/10/17 08:23 Monocytes % (Manual) 2 % (0-10) 10/10/17 08:23 Eosinophils % (Manual) 3 % (0-4) 10/10/17 08:23 Toxic Granulation Present 10/07/17 17:23 Large Platelets Present 10/07/17 17:23 Platelet Estimate Decreased (NORMAL) L 10/10/17 08:23 Polychromasia Slight 10/07/17 08:23 Hypochromasia (manual) Slight 10/07/17 17:23 Microcytosis (manual) Slight 10/07/17 17:23 Target Cells Slight 10/08/17 06:25 Anisocytosis (manual) Slight 10/10/17 08:23 PT 13.3 SECONDS (9.7-12.2) H 10/07/17 08:23 INR 1.2 10/07/17 08:23 APTT 26 SECONDS (21-34) 10/07/17 08:23 D-Dimer, Quantitative 1420 ng/mlDDU (0-243) H 10/07/17 10:01 pO2 23 mm/Hg (30-55) L 10/07/17 09:14 VBG pH 7.37 (7.32-7.43) 10/07/17 09:14 VBG pCO2 53 mmHg (40-60) 10/07/17 09:14 VBG HCO3 26.4 mmol/L 10/07/17 09:14 VBG Total CO2 32.2 mmol/L (22-28) H 10/07/17 09:14 VBG O2 Sat (Calc) 41.6 % (40-65) 10/07/17 09:14 VBG Base Excess 4.0 mmol/L (0.0-2.0) H 10/07/17 09:14 VBG Potassium 4.2 mmol/L (3.6-5.2) 10/07/17 09:14 Sodium 180.0 mmol/l (132-148) H* 10/07/17 09:14 Chloride 138.0 mmol/L (98-107) H 10/07/17 09:14 Glucose 151 mg/dl (75-110) H 10/07/17 09:14 Lactate 4.3 mmol/L (0.7-2.1) H* 10/07/17 09:14 Crit Value Called To Dr pitt 10/07/17 09:14 Crit Value Called By Heather juarez traction power engineer 10/07/17 09:14 Crit Value Read Back Y 10/07/17 09:14 Blood Gas Notified Time 923 10/07/17 09:14 Sodium 139 mmol/L (132-148) 10/18/17 11:30 Potassium 4.3 mmol/L (3.6-5.2) 10/18/17 11:30 Chloride 99 mmol/L (98-107) 10/18/17 11:30 Carbon Dioxide 32 mmol/L (22-30) H 10/18/17 11:30 Anion Gap 12 (10-20) 10/18/17 11:30 BUN 13 mg/dL (9-20) 10/18/17 11:30 Creatinine 0.7 mg/dL (0.8-1.5) L 10/18/17 11:30 Est GFR ( Amer) > 60 10/18/17 11:30 Est GFR (Non-Af Amer) > 60 10/18/17 11:30 POC Glucose (mg/dL) 83 mg/dL (65-110) 10/20/17 07:39 Random Glucose 98 mg/dL (75-110) 10/18/17 11:30 Lactic Acid 2.3 mmol/L (0.7-2.1) H 10/07/17 17:23 Calcium 8.9 mg/dl (8.6-10.4) 10/18/17 11:30 Phosphorus 3.1 mg/dL (2.5-4.5) 10/13/17 11:45 Magnesium 2.2 mg/dL (1.6-2.3) 10/13/17 11:45 Total Bilirubin 0.5 mg/dL (0.2-1.3) 10/18/17 11:30 AST 21 U/L (17-59) 10/18/17 11:30 ALT 25 U/L (21-72) 10/18/17 11:30 Alkaline Phosphatase 68 U/L (38-126) 10/18/17 11:30 Troponin I 0.0590 ng/mL (0.00-0.120) 10/07/17 08:23 Total Protein 7.3 g/dL (6.3-8.3) 10/18/17 11:30 Albumin 3.3 g/dL (3.5-5.0) L 10/18/17 11:30 Globulin 4.0 gm/dL (2.2-3.9) H 10/18/17 11:30 Albumin/Globulin Ratio 0.8 (1.0-2.1) L 10/18/17 11:30 Lipase 53 U/L (23-300) 10/07/17 17:23 Venous Blood Potassium 4.2 mmol/L (3.6-5.2) 10/07/17 09:14 Urine Color Yellow (YELLOW) 10/07/17 08:52 Urine Clarity Clear (Clear) 10/07/17 08:52 Urine pH 5.0 (5.0-8.0) 10/07/17 08:52 Ur Specific [place] 1.019 (1.003-1.030) 10/07/17 08:52 Urine Protein Negative mg/dL (NEGATIVE) 10/07/17 08:52 Urine Glucose (UA) Normal mg/dL (Normal) 10/07/17 08:52 Urine Ketones Negative mg/dL (NEGATIVE) 10/07/17 08:52 Urine Blood Negative (NEGATIVE) 10/07/17 08:52 Urine Nitrate Negative (NEGATIVE) 10/07/17 08:52 Urine Bilirubin Negative (NEGATIVE) 10/07/17 08:52 Urine Urobilinogen 2.0 mg/dL (0.2-1.0) 10/07/17 08:52 Ur Leukocyte Esterase Neg John/uL (Negative) 10/07/17 08:52 Urine WBC (Auto) 1 /hpf (0-5) 10/07/17 08:52 Urine RBC (Auto) 1 /hpf (0-3) 10/07/17 08:52 Ur Squamous Epith Cells < 1 /hpf (0-5) 10/07/17 08:52 Hyaline Casts 3-5 /lpf (0-2) H 10/07/17 08:52 Random Vancomycin 7.35 ug/mL 10/10/17 08:23 Influenza Typ A,B (EIA) Negative for flu a/b (NEGATIVE) 10/07/17 10:05 - Hospital Course Hospital Course: On admission: "61 year old male with a Hx of head injury in 2006 who was brought in by ambulance for increasing dementia. Per previous charts patients is the primary caregiver. At the time of admission wasn't present. Patient is non-verbal and also suffers from incontinence. Unable to asses patient's curent situation as caregiver wasn't present at the time of admission. ROS: Unable to acertain due to patient's inablity to speak. Patient is non-verbal and was not at bedside during the encounter therefore HPI as per ED and chart check." Hospital Course: Patient admitted for hypernatremia (181) likely due to dehydration and failure to thrive. Patient also had an ELIDA also likely due to dehydration. NGT placed for hydration and tube feeding. It was discussed that it would be in the patient 's best interest to have a PEG tube for feeding and hydration, but the refused. Attending Dr. Denton discussed case with and case management. Per she would like for the patient to stay in the hospital permanently. The refused subacute rehab, nursing homes, and PEG tube. The has made appeals to the hospital to prolong his hospital stay; however, this was denied. Per , she would like to bring the patient home. The patient was seen ambulating slowly with a rolling walker in the presence of physical therapy. The is unrealistic about the patient's outcome, expecting him to make a full recovery. Discharge set for 10/20/17. Discharge Exam - Head Exam Head Exam: ATRAUMATIC, NORMAL INSPECTION - Eye Exam Eye Exam: Normal appearance - ENT Exam ENT Exam: Mucous Membranes Moist - Respiratory Exam Respiratory Exam: NORMAL BREATHING PATTERN - Cardiovascular Exam Cardiovascular Exam: +S1, +S2 - GI/Abdominal Exam GI & Abdominal Exam: Soft - Extremities Exam Extremities exam: full ROM - Neurological Exam Neurological exam: Altered (advanced dementia at baseline) - Psychiatric Exam Psychiatric exam: Agitated - Skin Skin Exam: Dry, Warm Discharge Plan - Discharge Medications Prescriptions: Divalproex [Depakote DR TAB] 125 mg PO BID #60 tab - Follow Up Plan Condition: FAIR Disposition: HOME/ ROUTINE Instructions: Divalproex (By mouth), Supraventricular Tachycardia (DC), Dehydration (DC), Atrial Tachycardia (DC), Hypernatremia (DC) Additional Instructions: Please follow up at the [facility] after discharge. Please take Divalproex 125 mg twice a day. If there are any new or worsening symptoms, please go to the nearest emergency room. Referrals: [facility] at [facility] [Outside] <Edis Denton - Last Filed: 10/20/17 11:36> Provider - Provider Date of Admission: 10/07/17 11:07 Attending physician: Edis Denton, Hospital Course - Lab Results Lab Results: Micro Results 10/07/17 08:13 Blood Blood Culture - Final NO GROWTH AFTER 5 DAYS 10/07/17 08:13 Blood Gram Stain - Final TEST NOT PERFORMED 10/07/17 08:13 Blood Blood Culture - Final NO GROWTH AFTER 5 DAYS 10/07/17 08:13 Blood Gram Stain - Final TEST NOT PERFORMED 10/07/17 15:52 Naris MRSA Culture (Admit) - Final MRSA NOT DETECTED 10/07/17 08:00 Urine Urine Culture - Final No Growth (<1,000 CFU/ML) Most Recent Lab Values WBC 7.5 K/uL (4.8-10.8) 10/18/17 11:30 RBC 4.96 Mil/uL (4.40-5.90) 10/18/17 11:30 Hgb 12.7 g/dL (12.0-18.0) 10/18/17 11:30 Hct 37.3 % (35.0-51.0) 10/18/17 11:30 MCV 75.3 fL (80.0-94.0) L 10/18/17 11:30 MCH 25.5 pg (27.0-31.0) L 10/18/17 11:30 MCHC 33.9 g/dL (33.0-37.0) 10/18/17 11:30 RDW 17.0 % (11.5-14.5) H 10/18/17 11:30 Plt Count 353 K/uL (130-400) 10/18/17 11:30 MPV 9.1 fL (7.2-11.7) 10/18/17 11:30 Neut % (Auto) 75.1 % (50.0-75.0) H 10/18/17 11:30 Lymph % (Auto) 15.8 % (20.0-40.0) L 10/18/17 11:30 [place] % (Auto) 7.5 % (0.0-10.0) 10/18/17 11:30 Eos % (Auto) 1.3 % (0.0-4.0) 10/18/17 11:30 Baso % (Auto) 0.3 % (0.0-2.0) 10/18/17 11:30 Neut # (Auto) 5.6 K/uL (1.8-7.0) 10/18/17 11:30 Lymph # (Auto) 1.2 K/uL (1.0-4.3) 10/18/17 11:30 [place] # (Auto) 0.6 K/uL (0.0-0.8) 10/18/17 11:30 Eos # (Auto) 0.1 K/uL (0.0-0.7) 10/18/17 11:30 Baso # (Auto) 0.0 K/uL (0.0-0.2) 10/18/17 11:30 Neutrophils % (Manual) 82 % (50-75) H 10/10/17 08:23 Band Neutrophils % 6 % (0-2) H 10/10/17 08:23 Lymphocytes % (Manual) 6 % (20-40) L 10/10/17 08:23 Reactive Lymphs % 1 % (0-0) H 10/10/17 08:23 Monocytes % (Manual) 2 % (0-10) 10/10/17 08:23 Eosinophils % (Manual) 3 % (0-4) 10/10/17 08:23 Toxic Granulation Present 10/07/17 17:23 Large Platelets Present 10/07/17 17:23 Platelet Estimate Decreased (NORMAL) L 10/10/17 08:23 Polychromasia Slight 10/07/17 08:23 Hypochromasia (manual) Slight 10/07/17 17:23 Microcytosis (manual) Slight 10/07/17 17:23 Target Cells Slight 10/08/17 06:25 Anisocytosis (manual) Slight 10/10/17 08:23 PT 13.3 SECONDS (9.7-12.2) H 10/07/17 08:23 INR 1.2 10/07/17 08:23 APTT 26 SECONDS (21-34) 10/07/17 08:23 D-Dimer, Quantitative 1420 ng/mlDDU (0-243) H 10/07/17 10:01 pO2 23 mm/Hg (30-55) L 10/07/17 09:14 VBG pH 7.37 (7.32-7.43) 10/07/17 09:14 VBG pCO2 53 mmHg (40-60) 10/07/17 09:14 VBG HCO3 26.4 mmol/L 10/07/17 09:14 VBG Total CO2 32.2 mmol/L (22-28) H 10/07/17 09:14 VBG O2 Sat (Calc) 41.6 % (40-65) 10/07/17 09:14 VBG Base Excess 4.0 mmol/L (0.0-2.0) H 10/07/17 09:14 VBG Potassium 4.2 mmol/L (3.6-5.2) 10/07/17 09:14 Sodium 180.0 mmol/l (132-148) H* 10/07/17 09:14 Chloride 138.0 mmol/L (98-107) H 10/07/17 09:14 Glucose 151 mg/dl (75-110) H 10/07/17 09:14 Lactate 4.3 mmol/L (0.7-2.1) H* 10/07/17 09:14 Crit Value Called To Dr pitt 10/07/17 09:14 Crit Value Called By Heather juarez traction power engineer 10/07/17 09:14 Crit Value Read Back Y 10/07/17 09:14 Blood Gas Notified Time 923 10/07/17 09:14 Sodium 139 mmol/L (132-148) 10/18/17 11:30 Potassium 4.3 mmol/L (3.6-5.2) 10/18/17 11:30 Chloride 99 mmol/L (98-107) 10/18/17 11:30 Carbon Dioxide 32 mmol/L (22-30) H 10/18/17 11:30 Anion Gap 12 (10-20) 10/18/17 11:30 BUN 13 mg/dL (9-20) 10/18/17 11:30 Creatinine 0.7 mg/dL (0.8-1.5) L 10/18/17 11:30 Est GFR ( Amer) > 60 10/18/17 11:30 Est GFR (Non-Af Amer) > 60 10/18/17 11:30 POC Glucose (mg/dL) 83 mg/dL (65-110) 10/20/17 07:39 Random Glucose 98 mg/dL (75-110) 10/18/17 11:30 Lactic Acid 2.3 mmol/L (0.7-2.1) H 10/07/17 17:23 Calcium 8.9 mg/dl (8.6-10.4) 10/18/17 11:30 Phosphorus 3.1 mg/dL (2.5-4.5) 10/13/17 11:45 Magnesium 2.2 mg/dL (1.6-2.3) 10/13/17 11:45 Total Bilirubin 0.5 mg/dL (0.2-1.3) 10/18/17 11:30 AST 21 U/L (17-59) 10/18/17 11:30 ALT 25 U/L (21-72) 10/18/17 11:30 Alkaline Phosphatase 68 U/L (38-126) 10/18/17 11:30 Troponin I 0.0590 ng/mL (0.00-0.120) 10/07/17 08:23 Total Protein 7.3 g/dL (6.3-8.3) 10/18/17 11:30 Albumin 3.3 g/dL (3.5-5.0) L 10/18/17 11:30 Globulin 4.0 gm/dL (2.2-3.9) H 10/18/17 11:30 Albumin/Globulin Ratio 0.8 (1.0-2.1) L 10/18/17 11:30 Lipase 53 U/L (23-300) 10/07/17 17:23 Venous Blood Potassium 4.2 mmol/L (3.6-5.2) 10/07/17 09:14 Urine Color Yellow (YELLOW) 10/07/17 08:52 Urine Clarity Clear (Clear) 10/07/17 08:52 Urine pH 5.0 (5.0-8.0) 10/07/17 08:52 Ur Specific [place] 1.019 (1.003-1.030) 10/07/17 08:52 Urine Protein Negative mg/dL (NEGATIVE) 10/07/17 08:52 Urine Glucose (UA) Normal mg/dL (Normal) 10/07/17 08:52 Urine Ketones Negative mg/dL (NEGATIVE) 10/07/17 08:52 Urine Blood Negative (NEGATIVE) 10/07/17 08:52 Urine Nitrate Negative (NEGATIVE) 10/07/17 08:52 Urine Bilirubin Negative (NEGATIVE) 10/07/17 08:52 Urine Urobilinogen 2.0 mg/dL (0.2-1.0) 10/07/17 08:52 Ur Leukocyte Esterase Neg John/uL (Negative) 10/07/17 08:52 Urine WBC (Auto) 1 /hpf (0-5) 10/07/17 08:52 Urine RBC (Auto) 1 /hpf (0-3) 10/07/17 08:52 Ur Squamous Epith Cells < 1 /hpf (0-5) 10/07/17 08:52 Hyaline Casts 3-5 /lpf (0-2) H 10/07/17 08:52 Random Vancomycin 7.35 ug/mL 10/10/17 08:23 Influenza Typ A,B (EIA) Negative for flu a/b (NEGATIVE) 10/07/17 10:05 Attending/Attestation - Attestation I have personally seen and examined this patient.: Yes I have fully participated in the care of the patient.: Yes I have reviewed all pertinent clinical information, including history, physical exam and plan: Yes Notes (Text): Medical attending: Patient was seen and examined by me, I saw the patient together with the medical insurance verifier. I reviewed the above note by medical insurance verifier agree. The patient has been observed with a rolling walker with physical therapy he was able to move around very slowly under his own power around the entire hospital floor. However most of the time he is not able to follow any commands by physical therapy it seems that this made it very difficult for them to try to get him to participate with any physical therapy. As mentioned previously we wanted to discharge the patient on however the patient's was present and refused. I spoke with the caseworkers and she had appealed it however later on during the day I received word that the appeal was declined. The patient's explained that she understood and that she would be bringing him back home. As mentioned previously the does not want a PEG tube and does not want [place] [facility]. Also as mentioned previously I disscussed with caseworkers I asked when the patient should be placed in for discharge candidate explained that we should did inform 10/20/2017 They will need transportation to home. dEis Denton
[2017-10-20] MEDS: Divalproex 125 mg DR Tab PO SCH (09:46)
[2017-10-20] MEDS: Pantoprazole 40 mg EC Tab PO SCH (09:46)
[2017-10-20] MEDS: POLYETHYLENE GLYCOL 3350 17 GM/Dose PACKET NG SCH (09:46)
[2017-10-20 16:00] VITALS: BP 127/79; PULSE 123; TEMP 98.6
== END 2017-10-20 16:07 | disposition home or self-care (01) | DRG 682 ==
LOC: C.ER 07:45 → C.9I 11:07 → C.3T 10-11 21:41
PROVIDERS: ADMIT Hospitalist; ATTEND Hospitalist
DX: N17.9 Acute kidney failure, unspecified (principal); E43 Unspecified severe protein-calorie malnutrition; R62.7 Adult failure to thrive; E87.0 Hyperosmolality and hypernatremia; E86.0 Dehydration; D69.6 Thrombocytopenia, unspecified; R13.10 Dysphagia, unspecified; I13.0 Hypertensive heart and chronic kidney disease with heart failure and stage 1 through stage 4 chronic kidney disease, or unspecified chronic kidney disease; G20 Parkinson's disease; G91.9 Hydrocephalus, unspecified; F03.90 Unspecified dementia, unspecified severity, without behavioral disturbance, psychotic disturbance, mood disturbance, and anxiety; E86.1 Hypovolemia; D72.829 Elevated white blood cell count, unspecified; J44.9 Chronic obstructive pulmonary disease, unspecified; K56.41 Fecal impaction; N18.9 Chronic kidney disease, unspecified; M95.4 Acquired deformity of chest and rib; Z53.20 Procedure and treatment not carried out because of patient's decision for unspecified reasons; Z66 Do not resuscitate; Z51.5 Encounter for palliative care; Z74.01 Bed confinement status; Z79.899 Other long term (current) drug therapy; Z86.73 Personal history of transient ischemic attack (TIA), and cerebral infarction without residual deficits; Z87.891 Personal history of nicotine dependence; Z91.81 History of falling; Z87.820 Personal history of traumatic brain injury

== ENCOUNTER 2017-11-07 13:25 | Inpatient (IN) | payer MEDICARE ==
[2017-11-07 14:07] VITALS: BMI 15.2
--- NOTE | 2017-11-07 14:14 | C.PDOC ---
History Of Present Illness 62-year-old male, PMHx includes Hypertension, COPD and baseline AMS, is brought to the emergency department by EMS with complaints of worsening dementia. As per EMS, Patients called EMS because he was kicking and yelling at home, states she cannot take care of him anymore. Patient is non-verbal at baseline, and has a Hx of frequent admissions for same complaint. All other Hx limited. Time Seen by Provider: 11/07/17 13:44 History Per: EMS, Family Past Medical History Reviewed: Historical Data, Nursing Documentation, Vital Signs Vital Signs: Last Vital Signs Temp 98.4 F 11/07/17 13:58 Pulse 93 H 11/07/17 13:58 Resp 24 11/07/17 13:58 BP 128/83 11/07/17 13:58 Pulse Ox 96 11/07/17 14:20 - Medical History PMH: COPD, HTN, Chronic Kidney Disease Family History: States: No Known Family Hx - Social History Hx Alcohol Use: No Hx Substance Use: No - Immunization History Hx Tetanus Toxoid Vaccination: No (unknown) Hx Influenza Vaccination: No (unknown) Hx Pneumococcal Vaccination: No (unknown) Review Of Systems Review Of Systems: ROS cannot be obtained secondary to pt's inabilty to answer questions. Physical Exam - Physical Exam Appears: Non-toxic, No Acute Distress, Chronically Ill (Cachectic) Skin: Warm, Dry, No Rash Head: Normacephalic Eye(s): bilateral: PERRL, EOMI Oral Mucosa: Dry Neck: Normal ROM Chest: Symmetrical Cardiovascular: Rhythm Regular, No Murmur Respiratory: Normal Breath Sounds, No Accessory Muscle Use, No Rales, No Rhonchi , No Wheezing Gastrointestinal/Abdominal: Soft Extremity: Normal ROM, No Deformity, No Swelling ED Course And Treatment - Laboratory Results Result Diagrams: 11/07/17 17:34 11/07/17 17:34 Lab Interpretation: Abnormal (Na 160, BUN 27) O2 Sat by Pulse Oximetry: 96 (RA) Pulse Ox Interpretation: Normal Reevaluation Time: 19:28 Reassessment Condition: Improved - Physician Consult Information Time Consulting Physician Contacted: 19:28 Physician Contacted: Alex Rosales Outcome Of Conversation: Patient to be admitted for rehydration and control of dementia. Medical Decision Making Medical Decision Makiny/o M comes in with worsening dementia Prior Visits Notes and records from previous visits were reviewed. Patient last seen in ED and admitted on 10/06/17, discharged from hospital on 10/20/17. Plan: * CMP * CBC * UA * Reassess and Disposition Disposition - Disposition Disposition: HOSPITALIZED Disposition Time: 19:29 Condition: FAIR - Clinical Impression Clinical Impression: Dementia, Hypernatremia - Scribe Statement The provider has reviewed the documentation as recorded by the Scribe (Gerald Quiñones) All medical record entries made by the Scribe were at my direction and personally dictated by me. I have reviewed the chart and agree that the record accurately reflects my personal performance of the history, physical exam, medical decision making, and the department course for this patient. I have also personally directed, reviewed, and agree with the discharge instructions and disposition.
[2017-11-07 17:40] LABS: BASO % 0.6 % (0.0-2.0); EOS % 0.4 % (0.0-4.0); HEMOGLOBIN 14.8 g/dL (12.0-18.0); LYMPH # 1.4 K/uL (1.0-4.3); LYMPH % 18.1 % (20.0-40.0); MEAN CELL VOLUME 78.7 fL (80.0-94.0); MEAN CORPUSCULAR HEMOGLOBIN 25.7 pg (27.0-31.0); MEAN CORPUSCULAR HGB CONC 32.7 g/dL (33.0-37.0); MEAN PLATELET VOLUME 10.3 fL (7.2-11.7); MONO # 0.6 K/uL (0.0-0.8); MONO % 7.7 % (0.0-10.0); NEUT # 5.8 K/uL (1.8-7.0); NEUT % 73.2 % (50.0-75.0); NRBC % 0.2 % (0.0-2.0); RBC 5.74 Mil/uL (4.40-5.90); RED CELL DISTRIBUTION WIDTH 20.7 % (11.5-14.5); WHITE BLOOD COUNT 7.9 K/uL (4.8-10.8)
[2017-11-07 17:59] LABS: ALB/GLOB RATIO 0.9 (1.0-2.1); ALBUMIN 3.9 g/dL (3.5-5.0); ALT/SGPT 24 U/L (21-72); AST/SGOT 28 U/L (17-59); BLOOD UREA NITROGEN 27 mg/dL (9-20); CALCIUM 9.7 mg/dl (8.6-10.4); GFR AFRICAN-AMERICAN > 60; GFR NON-AFRICAN AMERICAN > 60
[2017-11-07] MEDS ORDERED: Sodium Chloride 0.9% 1,000 ML IV SCH (18:15)
--- NOTE | 2017-11-07 19:41 | CP.PCM.HP ---
Addendum entered and electronically signed by Raulito Marley 11/08/17 06:25: - Assessment and Plan (Free Text) Assessment: Hypernatremia Assessment and Plan: Possibly secondary to severe dehydration NS@ 125mls/hr Monitor Na levels closely F/U repeat CMP at midnight and in AM Status: Acute Agitation Assessment and Plan: Per , stopped taking home depakote 125mg PO BID because she believes Depakote worsened agitation Ativan 1mg IVP Q6H PRN Status: Acute Weakness Assessment and Plan: secondary to Failure to thrive Bolused 1L NS in ED Started on NS @ 125mls/hr still refusing Rehab, Chcf, and PEG. Previous Imaging: Head CT 10/07/17: chronic microvascular changes, atrophy, prominent ventricles, sinus disease Abdomen xray: fecal retention Status: Acute History of traumatic head injury Assessment and Plan: Worsening neurologic deficit Non-verbal for the past two years Urinary and fecal incontinence Not oriented to place and time Status: Acute Prophylactic measure Assessment and Plan: SCD, Lovenox 40 SC QD Protonix 40mg PO QD Heart Healthy Diet - Per , patient able to eat well when hand-fed Original Note: <Raulito Marley - Last Filed: 11/07/17 21:12> History of Present Illness - History of Present Illness History of Present Illness: CC: Altered Mental Status and Agitation HPI: A 62 year old patient with a PMH of AMS (baseline), HTN, COPD, Hypernatremia (secondary to dehydration), ELIDA (secondary to dehydration) and FTT presents to the ED via EMS after receiving a call from his . He was admitted to [facility] on 10/07/17 for similar complaints. The patients states that her has been screaming and agitated for 2-3 weeks at home. She states that she stopped giving the patient his prescribed Depakote because it "made him scream more." She states that he eats and drinks fluids well at home. The patient has no PMD and the patient was supposed to follow up in clinic to be referred to a neurologist but never came because the patients did not want to bring him. Upon the patients last admission to [facility], it was recommended that the patient be put in [facility] or a prison, and receive a PEG tube for feeding/hydration, however, the patients refused to do so. The patients still refuses to do so today. The patient ambulates at home with a walker and has urinary/fecal incontinence for the past 5 years. PMH: HTN, Traumatic brain injury, dementia, Previous note states patient also had CVA? PSH: Herniorrhaphy Family History: Unknown Medications: Depakote 125mg PO BID (not taking anymore because per , it made patient more agitated), Amlodopine unknown dose Allergies: NKDA Social History: Former smoker, no drug or alcohol use Present on Admission - Present on Admission Any Indicators Present on Admission: No Review of Systems - Review of Systems Systems not reviewed;Unavailable: Dementia, Altered Mental Status Past Patient History - Past Medical History & Family History Past Medical History?: Yes - Past Social History Smoking Status: Former Smoker - CARDIAC Hx Hypertension: Yes - PULMONARY Hx Chronic Obstructive Pulmonary Disease (COPD): Yes - NEUROLOGICAL Hx Neurological Disorder: Yes HX Cerebrovascular Accident: Yes - HEENT Hx HEENT Problems: No - RENAL Hx Chronic Kidney Disease: Yes - ENDOCRINE/METABOLIC Hx Endocrine Disorders: No - HEMATOLOGICAL/ONCOLOGICAL Hx Blood Disorders: No - INTEGUMENTARY Hx Dermatological Problems: No - MUSCULOSKELETAL/RHEUMATOLOGICAL Hx Musculoskeletal Disorders: Yes Hx Falls: Yes - GASTROINTESTINAL Hx Gastrointestinal Disorders: Yes Hx Constipation: Yes - GENITOURINARY/GYNECOLOGICAL Hx Genitourinary Disorders: Yes Hx Incontinence: Yes - PSYCHIATRIC Hx Substance Use: No - SURGICAL HISTORY Hx Surgeries: Yes Hx Herniorrhaphy: Yes - ANESTHESIA Hx Anesthesia: Yes Hx Anesthesia Reactions: No Hx Malignant Hyperthermia: No Meds Allergies/Adverse Reactions: Allergies Allergy/AdvReac Type Severity Reaction Status Date / Time No Known Allergies Allergy Verified 08/07/17 20:25 Physical Exam - Constitutional Appears: No Acute Distress, Unkempt, Confused, Cachectic, Chronically Ill - Head Exam Head Exam: ATRAUMATIC, NORMAL INSPECTION - Eye Exam Eye Exam: EOMI Pupil Exam: PERRL - ENT Exam ENT Exam: Mucous Membranes Moist - Neck Exam Neck exam: Positive for: Normal Inspection. Negative for: Lymphadenopathy, Tenderness - Respiratory Exam Respiratory Exam: Clear to Auscultation Bilateral, NORMAL BREATHING PATTERN. absent: Rales, Rhonchi, Wheezes - Cardiovascular Exam Cardiovascular Exam: Tachycardia, REGULAR RHYTHM, RRR, +S1, +S2. absent: JVD, Systolic Murmur - GI/Abdominal Exam GI & Abdominal Exam: Normal Bowel Sounds, Soft. absent: Distended, Firm, Guarding, Rebound, Tenderness - Extremities Exam Extremities exam: Positive for: normal inspection Additional comments: Muscle wasting - Back Exam Back exam: NORMAL INSPECTION. absent: rash noted - Neurological Exam Additional comments: awake and alert but not oriented to person, place, time - Skin Skin Exam: Intact, Normal Color, Warm Additional comments: discoloration noted in big toes bilaterally, likely mycotic Results - Vital Signs Recent Vital Signs: Last Vital Signs Temp 98.4 F 11/07/17 13:58 Pulse 93 H 11/07/17 13:58 Resp 24 11/07/17 13:58 BP 128/83 11/07/17 13:58 Pulse Ox 96 11/07/17 19:29 - Labs Result Diagrams: 11/07/17 17:34 11/07/17 17:34 Labs: Laboratory Results - last 24 hr 11/07/17 11/07/17 11/07/17 13:59 17:34 17:34 WBC 7.9 RBC 5.74 Hgb 14.8 D Hct 45.2 MCV 78.7 L D MCH 25.7 L MCHC 32.7 L RDW 20.7 H Plt Count 132 D MPV 10.3 Neut % (Auto) 73.2 Lymph % (Auto) 18.1 L Harmon % (Auto) 7.7 Eos % (Auto) 0.4 Baso % (Auto) 0.6 Neut # (Auto) 5.8 Lymph # (Auto) 1.4 Harmon # (Auto) 0.6 Eos # (Auto) 0.0 Baso # (Auto) 0.0 Sodium 160 H* Potassium 4.1 Chloride 118 H Carbon Dioxide 30 Anion Gap 16 BUN 27 H Creatinine 0.9 Est GFR ( Amer) > 60 Est GFR (Non-Af Amer) > 60 POC Glucose (mg/dL) 108 Random Glucose 86 Calcium 9.7 Total Bilirubin 0.7 AST 28 ALT 24 Alkaline Phosphatase 91 Total Protein 8.3 Albumin 3.9 Globulin 4.4 H Albumin/Globulin Ratio 0.9 L Assessment & Plan - Assessment and Plan (Free Text) Assessment: Hypernatremia Assessment and Plan: Possibly secondary to severe dehydration NS@ 125mls/hr Goal: to drop by <10 points in 24 hours * Stop fluids if sodium level drops to 170-160 within 24 hours * Monitor Na levels closely * F/U repeat CMP at midnight and in AM Status: Acute Agitation Assessment and Plan: Per , stopped taking home depakote 125mg PO BID because she believes Depakote worsened agitation Ativan 1mg IVP Q6H PRN Status: Acute Weakness Assessment and Plan: secondary to Failure to thrive Bolused 1L NS in ED Started on NS @ 125mls/hr still refusing Rehab, Chcf, and PEG. Previous Imaging: Head CT 10/07/17: chronic microvascular changes, atrophy, prominent ventricles, sinus disease Abdomen xray: fecal retention Status: Acute ELIDA (acute kidney injury) Assessment and Plan: Possibly secondary to severe dehydration, malnutrition BUN/CR: 48/1.9 NS@125mls/hr Status: Acute History of traumatic head injury Assessment and Plan: Worsening neurologic deficit Non-verbal for the past two years Urinary and fecal incontinence Not oriented to place and time Status: Acute Prophylactic measure Assessment and Plan: SCD, Lovenox 40 SC QD Protonix 40mg PO QD Heart Healthy Diet - Per , patient able to eat well when hand-fed <Alex Rosales - Last Filed: 11/08/17 19:12> Results - Vital Signs Recent Vital Signs: Last Vital Signs Temp 97.9 F 11/08/17 15:05 Pulse 53 L 11/08/17 15:05 Resp 18 11/08/17 15:05 BP 106/53 L 11/08/17 15:05 Pulse Ox 100 11/08/17 15:05 - Labs Result Diagrams: 11/08/17 07:15 11/08/17 07:15 Labs: Laboratory Results - last 24 hr 11/08/17 11/08/17 11/08/17 01:11 07:15 07:15 WBC 6.8 RBC 5.32 Hgb 13.9 Hct 41.7 MCV 78.3 L MCH 26.1 L MCHC 33.3 RDW 20.4 H Plt Count 122 L MPV 11.1 Neut % (Auto) 68.9 Lymph % (Auto) 21.9 Harmon % (Auto) 7.8 Eos % (Auto) 0.9 Baso % (Auto) 0.5 Neut # (Auto) 4.7 Lymph # (Auto) 1.5 Harmon # (Auto) 0.5 Eos # (Auto) 0.1 Baso # (Auto) 0.0 Sodium 157 H 155 H Potassium 3.7 4.2 Chloride 116 H 118 H Carbon Dioxide 30 23 Anion Gap 14 17 BUN 24 H 23 H Creatinine 0.8 0.8 Est GFR ( Amer) > 60 > 60 Est GFR (Non-Af Amer) > 60 > 60 Random Glucose 82 107 Calcium 8.7 8.8 Total Bilirubin 0.7 0.6 AST 25 28 ALT 21 16 L D Alkaline Phosphatase 71 66 Total Protein 7.6 7.3 Albumin 3.5 3.5 Globulin 4.1 H 3.9 Albumin/Globulin Ratio 0.8 L 0.9 L Urine Color Urine Clarity Urine pH Ur Specific Hecker Urine Protein Urine Glucose (UA) Urine Ketones Urine Blood Urine Nitrate Urine Bilirubin Urine Urobilinogen Ur Leukocyte Esterase Urine WBC (Auto) Ur Squamous Epith Cells Valproic Acid 11/08/17 11/08/17 07:54 10:45 WBC RBC Hgb Hct MCV MCH MCHC RDW Plt Count MPV Neut % (Auto) Lymph % (Auto) Harmon % (Auto) Eos % (Auto) Baso % (Auto) Neut # (Auto) Lymph # (Auto) Harmon # (Auto) Eos # (Auto) Baso # (Auto) Sodium Potassium Chloride Carbon Dioxide Anion Gap BUN Creatinine Est GFR ( Amer) Est GFR (Non-Af Amer) Random Glucose Calcium Total Bilirubin AST ALT Alkaline Phosphatase Total Protein Albumin Globulin Albumin/Globulin Ratio Urine Color Yellow Urine Clarity Clear Urine pH 6.0 Ur Specific Hecker 1.016 Urine Protein Negative Urine Glucose (UA) Normal Urine Ketones Negative Urine Blood Negative Urine Nitrate Negative Urine Bilirubin Negative Urine Urobilinogen Normal Ur Leukocyte Esterase Neg Urine WBC (Auto) 1 Ur Squamous Epith Cells < 1 Valproic Acid < 10.0 L Assessment & Plan - Date & Time Date: 11/08/17 (I have seen and examined the patient. I agree with the findings and plan of care as documented by Dr. Marley. Agree with the changes expressed in the addendum. Patient with hypernatremia. Likely chronic. IVF with NS and monitor BMP and adjust rate as necessary. Also with weakness and agitation. Ativan. Consult to neuro. Fall precautions. Social work consult. Plan for possible need for prison or home hospice rn nurse. Monitor for acute changes.) Time: 19:10 Attending/Attestation - Attestation I have personally seen and examined this patient.: Yes I have fully participated in the care of the patient.: Yes I have reviewed all pertinent clinical information: Yes
[2017-11-07] MEDS ORDERED: Sodium Chloride 0.45% 1,000 ML IV SCH (19:45)
[2017-11-07] MEDS ORDERED: Propofol 10 mg/ml 1,000 MG/100 ML VIAL ONE (19:57)
[2017-11-07] MEDS: Sodium Chloride 0.9% 1,000 ML IV SCH (22:34)
[2017-11-08 01:40] LABS: ALB/GLOB RATIO 0.8 (1.0-2.1); ALBUMIN 3.5 g/dL (3.5-5.0); ALT/SGPT 21 U/L (21-72); AST/SGOT 25 U/L (17-59); BLOOD UREA NITROGEN 24 mg/dL (9-20); CALCIUM 8.7 mg/dl (8.6-10.4); GFR AFRICAN-AMERICAN > 60; GFR NON-AFRICAN AMERICAN > 60
[2017-11-08] MEDS: Sodium Chloride 0.9% 1,000 ML IV SCH (06:00)
[2017-11-08 07:38] LABS: BASO % 0.5 % (0.0-2.0); EOS # 0.1 K/uL (0.0-0.7); EOS % 0.9 % (0.0-4.0); HEMOGLOBIN 13.9 g/dL (12.0-18.0); LYMPH # 1.5 K/uL (1.0-4.3); LYMPH % 21.9 % (20.0-40.0); MEAN CELL VOLUME 78.3 fL (80.0-94.0); MEAN CORPUSCULAR HEMOGLOBIN 26.1 pg (27.0-31.0); MEAN CORPUSCULAR HGB CONC 33.3 g/dL (33.0-37.0); MEAN PLATELET VOLUME 11.1 fL (7.2-11.7); MONO # 0.5 K/uL (0.0-0.8); MONO % 7.8 % (0.0-10.0); NEUT # 4.7 K/uL (1.8-7.0); NEUT % 68.9 % (50.0-75.0); NRBC % 0.1 % (0.0-2.0); RBC 5.32 Mil/uL (4.40-5.90); RED CELL DISTRIBUTION WIDTH 20.4 % (11.5-14.5); WHITE BLOOD COUNT 6.8 K/uL (4.8-10.8)
--- NOTE | 2017-11-08 08:54 | RAD ---
Chest x-ray single frontal view History: Evaluate for acute pathology. Comparison: 08/07/2017 Findings: Biapical pleural thickening with upper lobe granulomatous changes. Hyperinflation suggestive for COPD and or emphysematous. Small nodular density at the right lung base laterally. Deformity of a right lower thoracic rib. Heart size within normal limits. Degenerative changes spine and shoulders. Impression: Biapical pleural thickening with upper lobe granulomatous changes. Hyperinflation suggestive for COPD and or emphysematous. Small nodular density at the right lung base laterally. Deformity of a right lower thoracic rib.
[2017-11-08 09:38] LABS: ALB/GLOB RATIO 0.9 (1.0-2.1); ALBUMIN 3.5 g/dL (3.5-5.0); ALT/SGPT 16 U/L (21-72); AST/SGOT 28 U/L (17-59); BLOOD UREA NITROGEN 23 mg/dL (9-20); CALCIUM 8.8 mg/dl (8.6-10.4); GFR AFRICAN-AMERICAN > 60; GFR NON-AFRICAN AMERICAN > 60
--- NOTE | 2017-11-08 10:30 | CP.PCM.CON ---
History of Present Illness - History of Present Illness History of Present Illness: This is a 62 year old male with PMHx Advanced dementia, HTN, TBI, CVA, frequent admissions for hypernatremia due to dehydration who presented to the hospital for increased agitation. Patient is well known for frequent admissions due to failure to thrive. Patient lives at home with his who is his continuous towel roller. Patient has been getting agitated and screaming more often than usual. The has stopped giving him Depakote 125 mg PO BID because she believes that this worsens his agitation. The is known to frequently decline the option of a PEG tube for improved feeding at home. The also frequently declines placing the patient in a longterm because she believes that the patient will be overly sedated there. Patient has been non-verbal and incontinent of bowel and bladder for years. Unable to ascertain ROS. Per Review of EMR: PMHx: Advanced dementia, HTN, Traumatic brain injury 10 years ago, CVA PSHx: Herniorrhaphy Allergies: NKDA Social History: Former smoker, no drug or alcohol use PMD: no PMD Home medications: Depakote 125 mg PO BID Review of Systems - Review of Systems Systems not reviewed;Unavailable: Dementia, Altered Mental Status Past Patient History - Past Medical History & Family History Past Medical History?: Yes - Past Social History Smoking Status: Former Smoker - CARDIAC Hx Hypertension: Yes - PULMONARY Hx Chronic Obstructive Pulmonary Disease (COPD): Yes - NEUROLOGICAL Hx Neurological Disorder: Yes HX Cerebrovascular Accident: Yes - HEENT Hx HEENT Problems: No - RENAL Hx Chronic Kidney Disease: Yes - ENDOCRINE/METABOLIC Hx Endocrine Disorders: No - HEMATOLOGICAL/ONCOLOGICAL Hx Blood Disorders: No - INTEGUMENTARY Hx Dermatological Problems: No - MUSCULOSKELETAL/RHEUMATOLOGICAL Hx Musculoskeletal Disorders: Yes Hx Falls: Yes - GASTROINTESTINAL Hx Gastrointestinal Disorders: Yes Hx Constipation: Yes - GENITOURINARY/GYNECOLOGICAL Hx Genitourinary Disorders: Yes Hx Incontinence: Yes - PSYCHIATRIC Hx Substance Use: No - SURGICAL HISTORY Hx Surgeries: Yes Hx Herniorrhaphy: Yes - ANESTHESIA Hx Anesthesia: Yes Hx Anesthesia Reactions: No Hx Malignant Hyperthermia: No Meds Allergies/Adverse Reactions: Allergies Allergy/AdvReac Type Severity Reaction Status Date / Time No Known Allergies Allergy Verified 08/07/17 20:25 - Medications Medications: Current Medications Enoxaparin Sodium (Lovenox) 40 mg SC DAILY TETE Sodium Chloride (Sodium Chloride 0.9%) 1,000 mls @ 125 mls/hr IV .Q8H TETE Last Admin: 11/08/17 06:00 Dose: 125 mls/hr Dextrose/Sodium Chloride (Dextrose 5%/0.45% Ns 1000 Ml) 1,000 mls @ 100 mls/hr IV .Q10H TETE Lorazepam (Ativan) 1 mg IVP Q6H PRN PRN Reason: Agitation Last Admin: 11/08/17 06:32 Dose: 1 mg Pantoprazole Sodium (Protonix Ec Tab) 40 mg PO DAILY TETE Pneumococcal Polyvalent Vaccine (Pneumovax 23 Vaccine) 0.5 ml IM .ONCE ONE Stop: 11/09/17 10:01 Quetiapine Fumarate (Seroquel) 25 mg PO DAILY TETE Physical Exam - Constitutional Appears: Cachectic, Chronically Ill - Head Exam Head Exam: ATRAUMATIC, NORMOCEPHALIC - Eye Exam Eye Exam: Normal appearance. absent: PERRL - ENT Exam ENT Exam: Mucous Membranes Dry - Respiratory Exam Respiratory Exam: Clear to Auscultation Bilateral. absent: Rales, Rhonchi, Wheezes - Cardiovascular Exam Cardiovascular Exam: REGULAR RHYTHM, +S1, +S2 - GI/Abdominal Exam GI & Abdominal Exam: Normal Bowel Sounds, Soft. absent: Distended, Tenderness - Extremities Exam Extremities exam: Negative for: pedal edema - Neurological Exam Neurological exam: Altered Additional comments: Patient moving all extremities but does not follow simple commands. - Psychiatric Exam Psychiatric exam: Agitated - Skin Skin Exam: Dry, Warm Results - Vital Signs Recent Vital Signs: Last Vital Signs Temp 97.9 F 11/08/17 08:31 Pulse 82 11/08/17 08:31 Resp 20 11/08/17 08:31 BP 125/72 11/08/17 08:31 Pulse Ox 99 11/08/17 08:31 - Labs Result Diagrams: 11/08/17 07:15 11/08/17 07:15 Labs: Laboratory Results - last 24 hr 11/07/17 11/07/17 11/07/17 13:59 17:34 17:34 WBC 7.9 RBC 5.74 Hgb 14.8 D Hct 45.2 MCV 78.7 L D MCH 25.7 L MCHC 32.7 L RDW 20.7 H Plt Count 132 D MPV 10.3 Neut % (Auto) 73.2 Lymph % (Auto) 18.1 L Guthrie % (Auto) 7.7 Eos % (Auto) 0.4 Baso % (Auto) 0.6 Neut # (Auto) 5.8 Lymph # (Auto) 1.4 Guthrie # (Auto) 0.6 Eos # (Auto) 0.0 Baso # (Auto) 0.0 Sodium 160 H* Potassium 4.1 Chloride 118 H Carbon Dioxide 30 Anion Gap 16 BUN 27 H Creatinine 0.9 Est GFR ( Amer) > 60 Est GFR (Non-Af Amer) > 60 POC Glucose (mg/dL) 108 Random Glucose 86 Calcium 9.7 Total Bilirubin 0.7 AST 28 ALT 24 Alkaline Phosphatase 91 Total Protein 8.3 Albumin 3.9 Globulin 4.4 H Albumin/Globulin Ratio 0.9 L Valproic Acid 11/08/17 11/08/17 11/08/17 01:11 07:15 07:15 WBC 6.8 RBC 5.32 Hgb 13.9 Hct 41.7 MCV 78.3 L MCH 26.1 L MCHC 33.3 RDW 20.4 H Plt Count 122 L MPV 11.1 Neut % (Auto) 68.9 Lymph % (Auto) 21.9 Guthrie % (Auto) 7.8 Eos % (Auto) 0.9 Baso % (Auto) 0.5 Neut # (Auto) 4.7 Lymph # (Auto) 1.5 Guthrie # (Auto) 0.5 Eos # (Auto) 0.1 Baso # (Auto) 0.0 Sodium 157 H 155 H Potassium 3.7 4.2 Chloride 116 H 118 H Carbon Dioxide 30 23 Anion Gap 14 17 BUN 24 H 23 H Creatinine 0.8 0.8 Est GFR ( Amer) > 60 > 60 Est GFR (Non-Af Amer) > 60 > 60 POC Glucose (mg/dL) Random Glucose 82 107 Calcium 8.7 8.8 Total Bilirubin 0.7 0.6 AST 25 28 ALT 21 16 L D Alkaline Phosphatase 71 66 Total Protein 7.6 7.3 Albumin 3.5 3.5 Globulin 4.1 H 3.9 Albumin/Globulin Ratio 0.8 L 0.9 L Valproic Acid 11/08/17 07:54 WBC RBC Hgb Hct MCV MCH MCHC RDW Plt Count MPV Neut % (Auto) Lymph % (Auto) Guthrie % (Auto) Eos % (Auto) Baso % (Auto) Neut # (Auto) Lymph # (Auto) Guthrie # (Auto) Eos # (Auto) Baso # (Auto) Sodium Potassium Chloride Carbon Dioxide Anion Gap BUN Creatinine Est GFR ( Amer) Est GFR (Non-Af Amer) POC Glucose (mg/dL) Random Glucose Calcium Total Bilirubin AST ALT Alkaline Phosphatase Total Protein Albumin Globulin Albumin/Globulin Ratio Valproic Acid < 10.0 L Assessment & Plan - Assessment and Plan (Free Text) Assessment: This is a 62 year old male with PMHx TBI, dementia who presents with worsening agitation. 1. Agitation Seroquel 25 mg PO daily Correct metabolic derangements as per primary and nephrology teams Disposition: Agitation adequately managed with low dose Seroquel. Neurology team signing off. Please re-consult if necessary. Patient seen and discussed with Dr. Cleaning
[2017-11-08 10:58] LABS: SQUAMOUS EPITHIAL < 1 /hpf (0-5); URINE BILIRUBIN NEGATIVE (NEGATIVE); URINE BLOOD NEGATIVE (NEGATIVE); URINE CLARITY Clear (Clear); URINE COLOR Yellow (YELLOW); URINE GLUCOSE (UA) NORMAL (Normal); URINE LEUKOCYTE ESTERASE NEG Leu/uL (Negative); URINE NITRATE NEGATIVE (NEGATIVE); URINE PROTEIN NEGATIVE (NEGATIVE); URINE UROBILINOGEN NORMAL mg/dL (0.2-1.0)
[2017-11-08] MEDS: Dextrose 5%/0.45% NS 1,000 ML IV SCH ×2 (11:03→21:26)
[2017-11-08] MEDS: Enoxaparin 40 mg Syringe SC SCH (11:05)
[2017-11-08] MEDS: Pantoprazole 40 mg EC Tab PO SCH (11:05)
--- NOTE | 2017-11-08 14:55 | CP.PCM.PN ---
<ClydeCherelle - Last Filed: 11/08/17 14:51> Subjective - Date & Time of Evaluation Date of Evaluation: 11/08/17 Time of Evaluation: 07:45 - Subjective Subjective: Patient seen and examined at bedside. 1:1 nurse present to keep patient from falling out of bed. No acute events overnight per nursing. ROS unattainable due to patient status. Objective - Vital Signs/Intake and Output Vital Signs (last 24 hours): Temp Pulse Resp BP Pulse Ox 97.9 F 82 20 125/72 99 11/08/17 08:31 11/08/17 08:31 11/08/17 08:31 11/08/17 08:31 11/08/17 08:31 - Medications Medications: Current Medications Enoxaparin Sodium (Lovenox) 40 mg SC DAILY [facility] Last Admin: 11/08/17 11:05 Dose: 40 mg Sodium Chloride (Sodium Chloride 0.9%) 1,000 mls @ 125 mls/hr IV .Q8H [facility] Last Admin: 11/08/17 06:00 Dose: 125 mls/hr Dextrose/Sodium Chloride (Dextrose 5%/0.45% Ns 1000 Ml) 1,000 mls @ 100 mls/hr IV .Q10H [facility] Last Admin: 11/08/17 11:03 Dose: 100 mls/hr Lorazepam (Ativan) 1 mg IVP Q6H PRN PRN Reason: Agitation Last Admin: 11/08/17 06:32 Dose: 1 mg Pantoprazole Sodium (Protonix Ec Tab) 40 mg PO DAILY [facility] Last Admin: 11/08/17 11:05 Dose: 40 mg Pneumococcal Polyvalent Vaccine (Pneumovax 23 Vaccine) 0.5 ml IM .ONCE ONE Stop: 11/09/17 10:01 Quetiapine Fumarate (Seroquel) 25 mg PO DAILY [facility] Last Admin: 11/08/17 11:05 Dose: 25 mg - Labs Labs: 11/08/17 07:15 11/08/17 07:15 - Constitutional Appears: Non-toxic, Cachectic - Head Exam Head Exam: ATRAUMATIC, NORMAL INSPECTION, NORMOCEPHALIC - Eye Exam Eye Exam: EOMI. absent: PERRL - ENT Exam ENT Exam: Mucous Membranes Dry - Respiratory Exam Respiratory Exam: NORMAL BREATHING PATTERN. absent: Rales, Rhonchi, Wheezes Additional comments: appears to be CTA b/l however, patient grunts fequently while listening to lung sounds - Cardiovascular Exam Cardiovascular Exam: RRR, +S1, +S2. absent: Bradycardia, Tachycardia, Diastolic murmur, Gallop, Rubs, Murmur - GI/Abdominal Exam GI & Abdominal Exam: Soft, Normal Bowel Sounds. absent: Distended, Tenderness - Extremities Exam Extremities Exam: Normal Inspection. absent: Calf Tenderness, Pedal Edema - Back Exam Additional comments: small abrasion of right lateral aspect of the mid back - Neurological Exam Neurological Exam: Alert, Awake - Skin Skin Exam: Dry, Intact, Normal Color, Warm Assessment and Plan - Assessment and Plan (Free Text) Plan: Hypernatremia * Possibly secondary to severe dehydration * switched NS to D5 1/2 NS @100 cc/h * Monitor Na levels closely Agitation * Per , stopped taking home depakote 125mg PO BID because she believes Depakote worsened agitation * Ativan 1mg IVP Q6H PRN Weakness * secondary to Failure to thrive * D5 1/2 NS @100cc/h started * PT/OT/ST * still refusing Rehab, Retirement, and PEG. Previous Imaging: * Head CT 10/07/17: chronic microvascular changes, atrophy, prominent ventricles , sinus disease * Abdomen xray: fecal retention Lung nodule * seen on previous admission * CXR: pleural thickening with upper lobe granulomatous changes, hyperinflation , small nodular density of right lung base, and deformity of right lower thoracic rib History of traumatic head injury * Worsening neurologic deficit, non-verbal for the past two years, urinary and fecal incontinence, not oriented to place and time * Neurology consulted, Dr. Cleaning, help appreciated * started seroquel 25 mg PO daily * PT/OT/ST Prophylactic measure * SCD, Lovenox 40 SC QD * Protonix 40mg PO QD * Pureed diet with nectar thick liquids per last admission <Kimi Barraza V - Last Filed: 11/08/17 23:00> Objective - Vital Signs/Intake and Output Vital Signs (last 24 hours): Temp Pulse Resp BP Pulse Ox 97.9 F 53 L 18 106/53 L 100 11/08/17 15:05 11/08/17 15:05 11/08/17 15:05 11/08/17 15:05 11/08/17 15:05 Intake and Output: 11/08/17 11/09/17 18:59 06:59 Intake Total 870 450 Balance 870 450 - Medications Medications: Current Medications Enoxaparin Sodium (Lovenox) 40 mg SC DAILY [facility] Last Admin: 11/08/17 11:05 Dose: 40 mg Sodium Chloride (Sodium Chloride 0.9%) 1,000 mls @ 125 mls/hr IV .Q8H [facility] Last Admin: 11/08/17 06:00 Dose: 125 mls/hr Dextrose/Sodium Chloride (Dextrose 5%/0.45% Ns 1000 Ml) 1,000 mls @ 100 mls/hr IV .Q10H [facility] Last Admin: 11/08/17 21:26 Dose: 100 mls/hr Lorazepam (Ativan) 1 mg IVP Q6H PRN PRN Reason: Agitation Last Admin: 11/08/17 06:32 Dose: 1 mg Pantoprazole Sodium (Protonix Ec Tab) 40 mg PO DAILY [facility] Last Admin: 11/08/17 11:05 Dose: 40 mg Pneumococcal Polyvalent Vaccine (Pneumovax 23 Vaccine) 0.5 ml IM .ONCE ONE Stop: 11/09/17 10:01 Quetiapine Fumarate (Seroquel) 25 mg PO DAILY [facility] Last Admin: 11/08/17 11:05 Dose: 25 mg - Labs Labs: 11/08/17 07:15 11/08/17 20:32 Attending/Attestation - Attestation I have personally seen and examined this patient.: Yes I have fully participated in the care of the patient.: Yes I have reviewed all pertinent clinical information, including history, physical exam and plan: Yes Notes (Text): Patient well known to the hospitalist team. 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 Patient seen this morning. Patient's was not present with the 1:1. Patient grunting and is mildly agitated with us. We will need to monitor the sodium which is secondary to dehydration. Diet changed to pureed with nectar thick liquids PT/OT eval ordered Netsuite Consultant ordered We will need to follow-up with patient's if she will allow us for consideration for peg for the patient. Neurology has seen and evaluated the patient and signed off. Help appreciated. Nephrology has seen and evaluated the patient. Help appreciated Social and case management referral made since patient's needs additional support for her if that is possible Assessment/Plan 1) Hypernatremia (improving) * Possibly secondary to severe dehydration * switched NS to D5 1/2 NS @100 cc/h * Monitor Na levels closely 2) Agitation * Per , stopped taking home depakote 125mg PO BID because she believes Depakote worsened agitation * Ativan 1mg IVP Q6H PRN * Seroquel added by neurology 3) Weakness * secondary to Failure to thrive * D5 1/2 NS @100cc/h started * PT/OT/ST * still refusing Rehab, Retirement, and PEG. Previous Imaging: * Head CT 10/07/17: chronic microvascular changes, atrophy, prominent ventricles , sinus disease * Abdomen xray: fecal retention 4) Lung nodule * seen on previous admission * CXR: pleural thickening with upper lobe granulomatous changes, hyperinflation , small nodular density of right lung base, and deformity of right lower thoracic rib 5) History of traumatic head injury * Worsening neurologic deficit, non-verbal for the past two years, urinary and fecal incontinence, not oriented to place and time * Neurology consulted, Dr. Cleaning, help appreciated * started seroquel 25 mg PO daily * Has signed off * PT/OT/ST 6)Prophylactic measure * SCD, Lovenox 40 SC QD * Protonix 40mg PO QD * Pureed diet with nectar thick liquids per last admission
--- NOTE | 2017-11-08 15:17 | CP.PCM.CON ---
History of Present Illness - History of Present Illness History of Present Illness: PGY3 on nephrology Dr. Santos service: History per HPI as it is unobtainable secondary to clinical condition: A 62 year old patient with a PMH of AMS (baseline), HTN, COPD, Hypernatremia ( secondary to dehydration), ELIDA (secondary to dehydration) and FTT presents to the ED via EMS after receiving a call from his . He was admitted to [facility] on 10/07/17 for similar complaints. The patients states that her has been screaming and agitated for 2-3 weeks at home. She states that she stopped giving the patient his prescribed Depakote because it "made him scream more." She states that he eats and drinks fluids well at home. The patient has no PMD and the patient was supposed to follow up in clinic to be referred to a neurologist but never came because the patients did not want to bring him. Upon the patients last admission to [facility], it was recommended that the patient be put in DAMIR or a long term, and receive a PEG tube for feeding/hydration, however, the patients refused to do so. The patients still refuses to do so today. The patient ambulates at home with a walker and has urinary/fecal incontinence for the past 5 years. Nephrology consulted for hypernatremia of 160 on admission. Per CP pt was agitated earlier but fell asleep after Ativan and Seroquel. PMH: HTN, Traumatic brain injury, dementia, Previous note states patient also had CVA? PSH: Herniorrhaphy Family History: Unknown Medications: Depakote 125mg PO BID (not taking anymore because per , it made patient more agitated), Amlodopine unknown dose Allergies: NKDA Social History: Former smoker, no drug or alcohol use Review of Systems - Review of Systems Systems not reviewed;Unavailable: Altered Mental Status Past Patient History - Past Medical History & Family History Past Medical History?: Yes - Past Social History Smoking Status: Former Smoker - CARDIAC Hx Hypertension: Yes - PULMONARY Hx Chronic Obstructive Pulmonary Disease (COPD): Yes - NEUROLOGICAL Hx Neurological Disorder: Yes HX Cerebrovascular Accident: Yes - HEENT Hx HEENT Problems: No - RENAL Hx Chronic Kidney Disease: Yes - ENDOCRINE/METABOLIC Hx Endocrine Disorders: No - HEMATOLOGICAL/ONCOLOGICAL Hx Blood Disorders: No - INTEGUMENTARY Hx Dermatological Problems: No - MUSCULOSKELETAL/RHEUMATOLOGICAL Hx Musculoskeletal Disorders: Yes Hx Falls: Yes - GASTROINTESTINAL Hx Gastrointestinal Disorders: Yes Hx Constipation: Yes - GENITOURINARY/GYNECOLOGICAL Hx Genitourinary Disorders: Yes Hx Incontinence: Yes - PSYCHIATRIC Hx Substance Use: No - SURGICAL HISTORY Hx Surgeries: Yes Hx Herniorrhaphy: Yes - ANESTHESIA Hx Anesthesia: Yes Hx Anesthesia Reactions: No Hx Malignant Hyperthermia: No Meds Allergies/Adverse Reactions: Allergies Allergy/AdvReac Type Severity Reaction Status Date / Time No Known Allergies Allergy Verified 08/07/17 20:25 - Medications Medications: Current Medications Enoxaparin Sodium (Lovenox) 40 mg SC [facility]ILY [facility] Last Admin: 11/08/17 11:05 Dose: 40 mg Sodium Chloride (Sodium Chloride 0.9%) 1,000 mls @ 125 mls/hr IV .Q8H [facility] Last Admin: 11/08/17 06:00 Dose: 125 mls/hr Dextrose/Sodium Chloride (Dextrose 5%/0.45% Ns 1000 Ml) 1,000 mls @ 100 mls/hr IV .Q10H [facility] Last Admin: 11/08/17 11:03 Dose: 100 mls/hr Lorazepam (Ativan) 1 mg IVP Q6H PRN PRN Reason: Agitation Last Admin: 11/08/17 06:32 Dose: 1 mg Pantoprazole Sodium (Protonix Ec Tab) 40 mg PO DAILY [facility] Last Admin: 11/08/17 11:05 Dose: 40 mg Pneumococcal Polyvalent Vaccine (Pneumovax 23 Vaccine) 0.5 ml IM .ONCE ONE Stop: 11/09/17 10:01 Quetiapine Fumarate (Seroquel) 25 mg PO DAILY [facility] Last Admin: 11/08/17 11:05 Dose: 25 mg Physical Exam - Constitutional Appears: Cachectic - Head Exam Head Exam: NORMAL INSPECTION - Respiratory Exam Respiratory Exam: Clear to Auscultation Bilateral, NORMAL BREATHING PATTERN - Cardiovascular Exam Cardiovascular Exam: REGULAR RHYTHM, +S1, +S2. absent: Gallop, Rubs - GI/Abdominal Exam GI & Abdominal Exam: Normal Bowel Sounds, Soft - Extremities Exam Extremities exam: Negative for: pedal edema - Neurological Exam Neurological exam: Altered - Skin Skin Exam: Dry, Intact Results - Vital Signs Recent Vital Signs: Last Vital Signs Temp 97.9 F 11/08/17 08:31 Pulse 82 11/08/17 08:31 Resp 20 11/08/17 08:31 BP 125/72 11/08/17 08:31 Pulse Ox 99 11/08/17 08:31 - Labs Result Diagrams: 11/08/17 07:15 11/08/17 07:15 Labs: Laboratory Results - last 24 hr 11/07/17 11/07/17 11/07/17 13:59 17:34 17:34 WBC 7.9 RBC 5.74 Hgb 14.8 D Hct 45.2 MCV 78.7 L D MCH 25.7 L MCHC 32.7 L RDW 20.7 H Plt Count 132 D MPV 10.3 Neut % (Auto) 73.2 Lymph % (Auto) 18.1 L [place] % (Auto) 7.7 Eos % (Auto) 0.4 Baso % (Auto) 0.6 Neut # (Auto) 5.8 Lymph # (Auto) 1.4 [place] # (Auto) 0.6 Eos # (Auto) 0.0 Baso # (Auto) 0.0 Sodium 160 H* Potassium 4.1 Chloride 118 H Carbon Dioxide 30 Anion Gap 16 BUN 27 H Creatinine 0.9 Est GFR ( Amer) > 60 Est GFR (Non-Af Amer) > 60 POC Glucose (mg/dL) 108 Random Glucose 86 Calcium 9.7 Total Bilirubin 0.7 AST 28 ALT 24 Alkaline Phosphatase 91 Total Protein 8.3 Albumin 3.9 Globulin 4.4 H Albumin/Globulin Ratio 0.9 L Urine Color Urine Clarity Urine pH Ur Specific [place] Urine Protein Urine Glucose (UA) Urine Ketones Urine Blood Urine Nitrate Urine Bilirubin Urine Urobilinogen Ur Leukocyte Esterase Urine WBC (Auto) Ur Squamous Epith Cells Valproic Acid 11/08/17 11/08/17 11/08/17 01:11 07:15 07:15 WBC 6.8 RBC 5.32 Hgb 13.9 Hct 41.7 MCV 78.3 L MCH 26.1 L MCHC 33.3 RDW 20.4 H Plt Count 122 L MPV 11.1 Neut % (Auto) 68.9 Lymph % (Auto) 21.9 [place] % (Auto) 7.8 Eos % (Auto) 0.9 Baso % (Auto) 0.5 Neut # (Auto) 4.7 Lymph # (Auto) 1.5 [place] # (Auto) 0.5 Eos # (Auto) 0.1 Baso # (Auto) 0.0 Sodium 157 H 155 H Potassium 3.7 4.2 Chloride 116 H 118 H Carbon Dioxide 30 23 Anion Gap 14 17 BUN 24 H 23 H Creatinine 0.8 0.8 Est GFR ( Amer) > 60 > 60 Est GFR (Non-Af Amer) > 60 > 60 POC Glucose (mg/dL) Random Glucose 82 107 Calcium 8.7 8.8 Total Bilirubin 0.7 0.6 AST 25 28 ALT 21 16 L D Alkaline Phosphatase 71 66 Total Protein 7.6 7.3 Albumin 3.5 3.5 Globulin 4.1 H 3.9 Albumin/Globulin Ratio 0.8 L 0.9 L Urine Color Urine Clarity Urine pH Ur Specific [place] Urine Protein Urine Glucose (UA) Urine Ketones Urine Blood Urine Nitrate Urine Bilirubin Urine Urobilinogen Ur Leukocyte Esterase Urine WBC (Auto) Ur Squamous Epith Cells Valproic Acid 11/08/17 11/08/17 07:54 10:45 WBC RBC Hgb Hct MCV MCH MCHC RDW Plt Count MPV Neut % (Auto) Lymph % (Auto) [place] % (Auto) Eos % (Auto) Baso % (Auto) Neut # (Auto) Lymph # (Auto) [place] # (Auto) Eos # (Auto) Baso # (Auto) Sodium Potassium Chloride Carbon Dioxide Anion Gap BUN Creatinine Est GFR ( Amer) Est GFR (Non-Af Amer) POC Glucose (mg/dL) Random Glucose Calcium Total Bilirubin AST ALT Alkaline Phosphatase Total Protein Albumin Globulin Albumin/Globulin Ratio Urine Color Yellow Urine Clarity Clear Urine pH 6.0 Ur Specific [place] 1.016 Urine Protein Negative Urine Glucose (UA) Normal Urine Ketones Negative Urine Blood Negative Urine Nitrate Negative Urine Bilirubin Negative Urine Urobilinogen Normal Ur Leukocyte Esterase Neg Urine WBC (Auto) 1 Ur Squamous Epith Cells < 1 Valproic Acid < 10.0 L Assessment & Plan - Assessment and Plan (Free Text) Assessment: Hypernatremia Likely secondary to dehydration/failure to thrive. 160 on admission, UA negative. 155 this AM. Improved after NS. Can continue with D5 1/2NS. F/U Na at 1600 today and AM. F/U urine Na and osmo. TBI Management as per neurology. Agitation Management as per neurology. Failure to thrive Management as per primary team Management as per Dr. Santos
[2017-11-08 20:49] LABS: BLOOD UREA NITROGEN 16 mg/dL (9-20); CALCIUM 7.9 mg/dl (8.6-10.4); GFR AFRICAN-AMERICAN > 60; GFR NON-AFRICAN AMERICAN > 60
[2017-11-09 07:34] LABS: BASO % 0.8 % (0.0-2.0); EOS # 0.1 K/uL (0.0-0.7); EOS % 1.9 % (0.0-4.0); HEMOGLOBIN 13.4 g/dL (12.0-18.0); LYMPH # 1.3 K/uL (1.0-4.3); LYMPH % 25.4 % (20.0-40.0); MEAN CELL VOLUME 77.9 fL (80.0-94.0); MEAN CORPUSCULAR HEMOGLOBIN 25.9 pg (27.0-31.0); MEAN CORPUSCULAR HGB CONC 33.3 g/dL (33.0-37.0); MEAN PLATELET VOLUME 11.1 fL (7.2-11.7); MONO # 0.5 K/uL (0.0-0.8); MONO % 10.3 % (0.0-10.0); NEUT # 3.1 K/uL (1.8-7.0); NEUT % 61.6 % (50.0-75.0); NRBC % 0.3 % (0.0-2.0); RBC 5.17 Mil/uL (4.40-5.90); RED CELL DISTRIBUTION WIDTH 20.6 % (11.5-14.5)
[2017-11-09 07:40] LABS: ALB/GLOB RATIO 0.9 (1.0-2.1); ALBUMIN 2.9 g/dL (3.5-5.0); ALT/SGPT 16 U/L (21-72); AST/SGOT 23 U/L (17-59); BLOOD UREA NITROGEN 13 mg/dL (9-20); CALCIUM 7.9 mg/dl (8.6-10.4); GFR AFRICAN-AMERICAN > 60; GFR NON-AFRICAN AMERICAN > 60
[2017-11-09 08:35] VITALS: RESP 18; TEMP 98.6; O2SAT 98
[2017-11-09] MEDS ORDERED: Influenza Vaccine 60 mcg/0.5 mL SYR (4YR UP) IM ONE (10:00)
[2017-11-09] MEDS ORDERED: Pneumococcal 23-Valent Vaccine IM ONE (10:00)
[2017-11-09] MEDS: Enoxaparin 40 mg Syringe SC SCH (11:27)
[2017-11-09] MEDS: Pantoprazole 40 mg EC Tab PO SCH (11:27)
[2017-11-09] MEDS: Dextrose 5%/0.45% NS 1,000 ML IV SCH (11:28)
[2017-11-09 11:29] VITALS: BP 115/67; PULSE 62
--- NOTE | 2017-11-09 13:21 | CP.PCM.DIS ---
<Raysa Real - Last Filed: 11/09/17 13:59> Provider - Provider Date of Admission: 11/07/17 19:29 Attending physician: Alex Rosales MD Time Spent in preparation of Discharge (in minutes): 55 Hospital Course - Lab Results Lab Results: Most Recent Lab Values WBC 5.0 K/uL (4.8-10.8) 11/09/17 07:12 RBC 5.17 Mil/uL (4.40-5.90) 11/09/17 07:12 Hgb 13.4 g/dL (12.0-18.0) 11/09/17 07:12 Hct 40.3 % (35.0-51.0) 11/09/17 07:12 MCV 77.9 fL (80.0-94.0) L 11/09/17 07:12 MCH 25.9 pg (27.0-31.0) L 11/09/17 07:12 MCHC 33.3 g/dL (33.0-37.0) 11/09/17 07:12 RDW 20.6 % (11.5-14.5) H 11/09/17 07:12 Plt Count 108 K/uL (130-400) L 11/09/17 07:12 MPV 11.1 fL (7.2-11.7) 11/09/17 07:12 Neut % (Auto) 61.6 % (50.0-75.0) 11/09/17 07:12 Lymph % (Auto) 25.4 % (20.0-40.0) 11/09/17 07:12 Josephine % (Auto) 10.3 % (0.0-10.0) H 11/09/17 07:12 Eos % (Auto) 1.9 % (0.0-4.0) 11/09/17 07:12 Baso % (Auto) 0.8 % (0.0-2.0) 11/09/17 07:12 Neut # (Auto) 3.1 K/uL (1.8-7.0) 11/09/17 07:12 Lymph # (Auto) 1.3 K/uL (1.0-4.3) 11/09/17 07:12 Josephine # (Auto) 0.5 K/uL (0.0-0.8) 11/09/17 07:12 Eos # (Auto) 0.1 K/uL (0.0-0.7) 11/09/17 07:12 Baso # (Auto) 0.0 K/uL (0.0-0.2) 11/09/17 07:12 Differential Comment 11/09/17 07:12 Sodium 143 mmol/L (132-148) 11/09/17 07:12 Potassium 3.8 mmol/L (3.6-5.2) 11/09/17 07:12 Chloride 107 mmol/L (98-107) 11/09/17 07:12 Carbon Dioxide 25 mmol/L (22-30) 11/09/17 07:12 Anion Gap 15 (10-20) 11/09/17 07:12 BUN 13 mg/dL (9-20) 11/09/17 07:12 Creatinine 0.7 mg/dL (0.8-1.5) L 11/09/17 07:12 Est GFR ( Amer) > 60 11/09/17 07:12 Est GFR (Non-Af Amer) > 60 11/09/17 07:12 POC Glucose (mg/dL) 108 mg/dL (65-110) 11/07/17 13:59 Random Glucose 79 mg/dL (75-110) 11/09/17 07:12 Calcium 7.9 mg/dl (8.6-10.4) L 11/09/17 07:12 Total Bilirubin 0.6 mg/dL (0.2-1.3) 11/09/17 07:12 AST 23 U/L (17-59) 11/09/17 07:12 ALT 16 U/L (21-72) L 11/09/17 07:12 Alkaline Phosphatase 59 U/L (38-126) 11/09/17 07:12 Total Protein 6.3 g/dL (6.3-8.3) 11/09/17 07:12 Albumin 2.9 g/dL (3.5-5.0) L 11/09/17 07:12 Globulin 3.4 gm/dL (2.2-3.9) 11/09/17 07:12 Albumin/Globulin Ratio 0.9 (1.0-2.1) L 11/09/17 07:12 Urine Color Yellow (YELLOW) 11/08/17 10:45 Urine Clarity Clear (Clear) 11/08/17 10:45 Urine pH 6.0 (5.0-8.0) 11/08/17 10:45 Ur Specific [place] 1.016 (1.003-1.030) 11/08/17 10:45 Urine Protein Negative mg/dL (NEGATIVE) 11/08/17 10:45 Urine Glucose (UA) Normal mg/dL (Normal) 11/08/17 10:45 Urine Ketones Negative mg/dL (NEGATIVE) 11/08/17 10:45 Urine Blood Negative (NEGATIVE) 11/08/17 10:45 Urine Nitrate Negative (NEGATIVE) 11/08/17 10:45 Urine Bilirubin Negative (NEGATIVE) 11/08/17 10:45 Urine Urobilinogen Normal mg/dL (0.2-1.0) 11/08/17 10:45 Ur Leukocyte Esterase Neg John/uL (Negative) 11/08/17 10:45 Urine WBC (Auto) 1 /hpf (0-5) 11/08/17 10:45 Ur Squamous Epith Cells < 1 /hpf (0-5) 11/08/17 10:45 Valproic Acid < 10.0 ug/mL (50.0-100.0) L 11/08/17 07:54 - Hospital Course Hospital Course: Upon Admission: CC: Altered Mental Status and Agitation HPI: A 62 year old patient with a PMH of AMS (baseline), HTN, COPD, Hypernatremia (secondary to dehydration), ELIDA (secondary to dehydration) and FTT presents to the ED via EMS after receiving a call from his . He was admitted to [facility] on 10/07/17 for similar complaints. The patients states that her has been screaming and agitated for 2-3 weeks at home. She states that she stopped giving the patient his prescribed Depakote because it "made him scream more." She states that he eats and drinks fluids well at home. The patient has no PMD and the patient was supposed to follow up in clinic to be referred to a neurologist but never came because the patients did not want to bring him. Upon the patients last admission to [facility], it was recommended that the patient be put in [facility] or a prison, and receive a PEG tube for feeding/hydration, however, the patients refused to do so. The patients still refuses to do so today. The patient ambulates at home with a walker and has urinary/fecal incontinence for the past 5 years. PMH: HTN, Traumatic brain injury, dementia, Previous note states patient also had CVA? PSH: Herniorrhaphy Family History: Unknown Medications: Depakote 125mg PO BID (not taking anymore because per , it made patient more agitated), Amlodopine unknown dose Allergies: NKDA Social History: Former smoker, no drug or alcohol use Throughout Hospital Course: Hypernatremia * Possibly secondary to severe dehydration * switched NS to D5 1/2 NS @100 cc/h * Monitor Na levels closely - normalized as per NEPHRO patient is cleared - okay for DC from Nepho standpoint. Agitation * Per , stopped taking home depakote 125mg PO BID because she believes Depakote worsened agitation * Ativan 1mg IVP Q6H PRN Weakness * secondary to Failure to thrive * D5 1/2 NS @100cc/h started * PT/OT/ST * still refusing Rehab, [facility], and PEG. Previous Imaging: * Head CT 10/07/17: chronic microvascular changes, atrophy, prominent ventricles , sinus disease * Abdomen xray: fecal retention Lung nodule * seen on previous admission * CXR: pleural thickening with upper lobe granulomatous changes, hyperinflation , small nodular density of right lung base, and deformity of right lower thoracic rib History of traumatic head injury * Worsening neurologic deficit, non-verbal for the past two years, urinary and fecal incontinence, not oriented to place and time * Neurology consulted, Dr. Cleaning, help appreciated - signed off * started seroquel 25 mg PO daily * PT/OT/ST Please review EMR this is a brief summary of the patient's hospital course. Discharge Exam - Head Exam Head Exam: ATRAUMATIC, NORMAL INSPECTION, NORMOCEPHALIC - Eye Exam Eye Exam: EOMI, Normal appearance, PERRL Pupil Exam: NORMAL ACCOMODATION - ENT Exam ENT Exam: Mucous Membranes Moist - Respiratory Exam Respiratory Exam: Clear to PA & Lateral, NORMAL BREATHING PATTERN. absent: Decreased Breath Sounds, UNREMARKABLE - Cardiovascular Exam Cardiovascular Exam: REGULAR RHYTHM, RRR, +S1, +S2 - GI/Abdominal Exam GI & Abdominal Exam: Normal Bowel Sounds, Soft. absent: Distended, Unremarkable - Rectal Exam Rectal Exam: Deferred - Extremities Exam Extremities exam: normal inspection, pedal pulses present - Neurological Exam Neurological exam: Alert, CN II-XII Intact, Oriented x3 - Psychiatric Exam Psychiatric exam: Normal Affect, Normal Mood - Skin Skin Exam: Dry, Intact, Normal Color, Warm Discharge Plan - Discharge Medications Prescriptions: Donepezil [Aricept] 5 mg PO DAILY #30 tab Memantine [Namenda] 5 mg PO DAILY #30 tab QUEtiapine [SEROquel] 50 mg PO HS #30 tab - Follow Up Plan Condition: FAIR Disposition: HOME/ ROUTINE Instructions: Dementia (DC), Donepezil, Memantine, Quetiapine Additional Instructions: Please continue to take Seroquel 25mg by mouth AT NIGHT to help with the patient 's agitation. Patient can continue taking Namenda 5mg by mouth daily and Aricept 5mg by mouth daily. If patient becomes agitated or aggressive, please give two tablets of Seroquel 25mg by mouth ONLY when he is aggressive. Referrals: [facility] [Outside] Junaid Cleaning MD [Staff Provider] - <Kimi Barraza V - Last Filed: 11/09/17 22:23> Provider - Provider Date of Admission: 11/07/17 19:29 Attending physician: Alex Rosales MD Hospital Course - Lab Results Lab Results: Most Recent Lab Values WBC 5.0 K/uL (4.8-10.8) 11/09/17 07:12 RBC 5.17 Mil/uL (4.40-5.90) 11/09/17 07:12 Hgb 13.4 g/dL (12.0-18.0) 11/09/17 07:12 Hct 40.3 % (35.0-51.0) 11/09/17 07:12 MCV 77.9 fL (80.0-94.0) L 11/09/17 07:12 MCH 25.9 pg (27.0-31.0) L 11/09/17 07:12 MCHC 33.3 g/dL (33.0-37.0) 11/09/17 07:12 RDW 20.6 % (11.5-14.5) H 11/09/17 07:12 Plt Count 108 K/uL (130-400) L 11/09/17 07:12 MPV 11.1 fL (7.2-11.7) 11/09/17 07:12 Neut % (Auto) 61.6 % (50.0-75.0) 11/09/17 07:12 Lymph % (Auto) 25.4 % (20.0-40.0) 11/09/17 07:12 Josephine % (Auto) 10.3 % (0.0-10.0) H 11/09/17 07:12 Eos % (Auto) 1.9 % (0.0-4.0) 11/09/17 07:12 Baso % (Auto) 0.8 % (0.0-2.0) 11/09/17 07:12 Neut # (Auto) 3.1 K/uL (1.8-7.0) 11/09/17 07:12 Lymph # (Auto) 1.3 K/uL (1.0-4.3) 11/09/17 07:12 Josephine # (Auto) 0.5 K/uL (0.0-0.8) 11/09/17 07:12 Eos # (Auto) 0.1 K/uL (0.0-0.7) 11/09/17 07:12 Baso # (Auto) 0.0 K/uL (0.0-0.2) 11/09/17 07:12 Differential Comment 11/09/17 07:12 Sodium 143 mmol/L (132-148) 11/09/17 07:12 Potassium 3.8 mmol/L (3.6-5.2) 11/09/17 07:12 Chloride 107 mmol/L (98-107) 11/09/17 07:12 Carbon Dioxide 25 mmol/L (22-30) 11/09/17 07:12 Anion Gap 15 (10-20) 11/09/17 07:12 BUN 13 mg/dL (9-20) 11/09/17 07:12 Creatinine 0.7 mg/dL (0.8-1.5) L 11/09/17 07:12 Est GFR ( Amer) > 60 11/09/17 07:12 Est GFR (Non-Af Amer) > 60 11/09/17 07:12 POC Glucose (mg/dL) 108 mg/dL (65-110) 11/07/17 13:59 Random Glucose 79 mg/dL (75-110) 11/09/17 07:12 Calcium 7.9 mg/dl (8.6-10.4) L 11/09/17 07:12 Total Bilirubin 0.6 mg/dL (0.2-1.3) 11/09/17 07:12 AST 23 U/L (17-59) 11/09/17 07:12 ALT 16 U/L (21-72) L 11/09/17 07:12 Alkaline Phosphatase 59 U/L (38-126) 11/09/17 07:12 Total Protein 6.3 g/dL (6.3-8.3) 11/09/17 07:12 Albumin 2.9 g/dL (3.5-5.0) L 11/09/17 07:12 Globulin 3.4 gm/dL (2.2-3.9) 11/09/17 07:12 Albumin/Globulin Ratio 0.9 (1.0-2.1) L 11/09/17 07:12 Urine Color Yellow (YELLOW) 11/08/17 10:45 Urine Clarity Clear (Clear) 11/08/17 10:45 Urine pH 6.0 (5.0-8.0) 11/08/17 10:45 Ur Specific [place] 1.016 (1.003-1.030) 11/08/17 10:45 Urine Protein Negative mg/dL (NEGATIVE) 11/08/17 10:45 Urine Glucose (UA) Normal mg/dL (Normal) 11/08/17 10:45 Urine Ketones Negative mg/dL (NEGATIVE) 11/08/17 10:45 Urine Blood Negative (NEGATIVE) 11/08/17 10:45 Urine Nitrate Negative (NEGATIVE) 11/08/17 10:45 Urine Bilirubin Negative (NEGATIVE) 11/08/17 10:45 Urine Urobilinogen Normal mg/dL (0.2-1.0) 11/08/17 10:45 Ur Leukocyte Esterase Neg John/uL (Negative) 11/08/17 10:45 Urine WBC (Auto) 1 /hpf (0-5) 11/08/17 10:45 Ur Squamous Epith Cells < 1 /hpf (0-5) 11/08/17 10:45 Valproic Acid < 10.0 ug/mL (50.0-100.0) L 11/08/17 07:54 Attending/Attestation - Attestation I have personally seen and examined this patient.: Yes I have fully participated in the care of the patient.: Yes I have reviewed all pertinent clinical information, including history, physical exam and plan: Yes Notes (Text): Patient seen, examined and case discussed with day-time resident. Patient seen this morning. Patient is relatively calm today, has been fed and is tolerable. Discussed with neurology, patient is calmed with Seroquel 25mg PO daily during the day; recommend against the benzos such as Ativan in elderly population. I have discussed with patient's on the phone, patient may continue Aricept, Namenda, and Seroquel 50mg (2, 25mg tabs) PO daily and not ATIVAN. Royce has only needed it twice during his admission. I have spoken with patient's pharmacy , [facility] to discuss medications upon discharge and sent via e prescription. Patient's continues to refuses peg tube, does not want that. I did encourage the that patient needs to eat and drink enough given his sodium has normalized with IV fluids; she is aware of that and aware that her is coming home today. Per nephrology, patient is stable for discharge She is advised to given Seroquel at night instead of day since it will keep him calm at night, and he should be awake during the day. Prescriptions for Nameda, Seroqel, and Aricept provided by via [facility]. Strongly against benzos upon discharge. This is a summary patient's hospitalization. Please use EMR further details.
--- NOTE | 2017-11-09 14:08 | CP.PCM.PN ---
Subjective - Date & Time of Evaluation Date of Evaluation: 11/09/17 Time of Evaluation: 13:00 - Subjective Subjective: PGY3 on neprhology Dr. Santos service: Pt seen and examined at bedside. Pt was been fed and tolerating PO diet. No acute events overnight. ROS unobtainable due to clinical condition. Objective - Vital Signs/Intake and Output Vital Signs (last 24 hours): Temp Pulse Resp BP Pulse Ox 98.6 F 62 18 115/67 98 11/09/17 08:33 11/09/17 11:29 11/09/17 08:33 11/09/17 11:29 11/09/17 08:33 Intake and Output: 11/09/17 11/09/17 06:59 18:59 Intake Total 1450 Balance 1450 - Medications Medications: Current Medications Enoxaparin Sodium (Lovenox) 40 mg SC DAILY [facility] Last Admin: 11/09/17 11:27 Dose: 40 mg Sodium Chloride (Sodium Chloride 0.9%) 1,000 mls @ 125 mls/hr IV .Q8H [facility] Last Admin: 11/08/17 06:00 Dose: 125 mls/hr Dextrose/Sodium Chloride (Dextrose 5%/0.45% Ns 1000 Ml) 1,000 mls @ 100 mls/hr IV .Q10H [facility] Last Admin: 11/09/17 11:28 Dose: Not Given Lorazepam (Ativan) 1 mg IVP Q6H PRN PRN Reason: Agitation Last Admin: 11/09/17 11:27 Dose: 1 mg Pantoprazole Sodium (Protonix Ec Tab) 40 mg PO DAILY [facility] Last Admin: 11/09/17 11:27 Dose: 40 mg Quetiapine Fumarate (Seroquel) 25 mg PO DAILY [facility] Last Admin: 11/09/17 13:03 Dose: 25 mg - Labs Labs: 11/09/17 07:12 11/09/17 07:12 - Constitutional Appears: Non-toxic, No Acute Distress, Confused, Cachectic, Chronically Ill - Eye Exam Eye Exam: Normal appearance Pupil Exam: NORMAL ACCOMODATION - Respiratory Exam Respiratory Exam: Clear to Ausculation Bilateral, NORMAL BREATHING PATTERN. absent: Wheezes - Cardiovascular Exam Cardiovascular Exam: REGULAR RHYTHM, +S1, +S2. absent: Gallop, Rubs - GI/Abdominal Exam GI & Abdominal Exam: Soft, Normal Bowel Sounds - Neurological Exam Neurological Exam: Alert, Altered Assessment and Plan - Assessment and Plan (Free Text) Assessment: Hypernatremia Likely secondary to dehydration/failure to thrive. 160 on admission, UA negative. 143 this AM. Improved after NS. Can continue with D5 1/2NS. F/U Na at 1600 today and AM. F/U urine Na and osmo. OK to be discharged today. TBI Management as per neurology. Agitation Management as per neurology. Failure to thrive Management as per primary team Management as per Dr. Santos
[2017-11-10 09:33] LABS: OSMOLALITY,URINE 424 mosm/kg (300-1000)
== END 2017-11-09 16:30 | disposition home or self-care (01) | DRG 884 ==
LOC: C.ER 13:25 → C.9E 19:29 → C.5S 11-08 01:22
PROVIDERS: ADMIT Family Medicine; ATTEND Family Medicine
DX: F03.90 Unspecified dementia, unspecified severity, without behavioral disturbance, psychotic disturbance, mood disturbance, and anxiety (principal); N17.9 Acute kidney failure, unspecified; E46 Unspecified protein-calorie malnutrition; E87.0 Hyperosmolality and hypernatremia; J44.9 Chronic obstructive pulmonary disease, unspecified; R15.9 Full incontinence of feces; I12.9 Hypertensive chronic kidney disease with stage 1 through stage 4 chronic kidney disease, or unspecified chronic kidney disease; N18.9 Chronic kidney disease, unspecified; E86.0 Dehydration; R53.1 Weakness; R62.7 Adult failure to thrive; R32 Unspecified urinary incontinence; R45.1 Restlessness and agitation; R29.818 Other symptoms and signs involving the nervous system; Z87.891 Personal history of nicotine dependence; Z87.820 Personal history of traumatic brain injury; R91.1 Solitary pulmonary nodule

== ENCOUNTER 2017-11-14 15:53 | Observation (INO) | payer MEDICARE, OTHER ==
[2017-11-14 15:55] VITALS: BMI 18.0
[2017-11-14] MEDS ORDERED: Sodium Chloride 0.9% 1,000 ML IV ONE (16:08)
[2017-11-14] MEDS ORDERED: Sodium Chloride 0.9% 1,000 ML ONE (16:15)
[2017-11-14 16:31] LABS: BASO % 0.6 % (0.0-2.0); EOS # 0.1 K/uL (0.0-0.7); EOS % 0.9 % (0.0-4.0); HEMOGLOBIN 12.7 g/dL (12.0-18.0); LYMPH # 1.5 K/uL (1.0-4.3); LYMPH % 19.6 % (20.0-40.0); MEAN CELL VOLUME 78.3 fL (80.0-94.0); MEAN CORPUSCULAR HEMOGLOBIN 26.1 pg (27.0-31.0); MEAN CORPUSCULAR HGB CONC 33.3 g/dL (33.0-37.0); MEAN PLATELET VOLUME 10.1 fL (7.2-11.7); MONO # 0.7 K/uL (0.0-0.8); MONO % 9.5 % (0.0-10.0); NEUT # 5.3 K/uL (1.8-7.0); NEUT % 69.4 % (50.0-75.0); NRBC % 0.1 % (0.0-2.0); RBC 4.87 Mil/uL (4.40-5.90); RED CELL DISTRIBUTION WIDTH 21.5 % (11.5-14.5); WHITE BLOOD COUNT 7.6 K/uL (4.8-10.8)
[2017-11-14 16:37] LABS: ALB/GLOB RATIO 0.9 (1.0-2.1); ALBUMIN 3.5 g/dL (3.5-5.0); ALT/SGPT 15 U/L (21-72); AST/SGOT 27 U/L (17-59); BLOOD UREA NITROGEN 27 mg/dL (9-20); CALCIUM 8.9 mg/dl (8.6-10.4); GFR AFRICAN-AMERICAN > 60; GFR NON-AFRICAN AMERICAN > 60
--- NOTE | 2017-11-14 17:00 | C.PDOC ---
History Of Present Illness Patient sent to ER from home for agitation. PMHx of advanced dementia, TBI, COPD, HTN, CKD. Patient recently admitted at for similar symptoms, found to be dehydrated and hypernatremic. History limited due to dementia/agitation. Time Seen by Provider: 11/14/17 16:01 Chief Complaint (Nursing): Medical Clearance History Per: EMS History/Exam Limitations: clinical condition Current Symptoms Are (Timing): Still Present Severity: Moderate Past Medical History Reviewed: Historical Data, Nursing Documentation, Vital Signs Vital Signs: Last Vital Signs Temp 97.8 F 11/14/17 18:15 Pulse 74 11/14/17 18:15 Resp 18 11/14/17 18:15 BP 115/54 L 11/14/17 18:15 Pulse Ox 100 11/14/17 18:15 - Medical History PMH: COPD, Dementia, HTN, Chronic Kidney Disease Family History: States: No Known Family Hx - Social History Hx Alcohol Use: No Hx Substance Use: No - Immunization History Hx Tetanus Toxoid Vaccination: No (unknown) Hx Influenza Vaccination: No (unknown) Hx Pneumococcal Vaccination: No (unknown) Review Of Systems Review Of Systems: ROS cannot be obtained secondary to pt's inabilty to answer questions. Physical Exam - Physical Exam Appears: Non-toxic, No Acute Distress (agitated and moaning ), Chronically Ill, Other (thin, appears older than stated age ) Skin: Normal Color, Warm, Dry Oral Mucosa: Dry Cardiovascular: Rhythm Regular Respiratory: Normal Breath Sounds, No Rales, No Rhonchi, No Wheezing Gastrointestinal/Abdominal: Normal Exam, Bowel Sounds, Soft, No Tenderness Extremity: Normal ROM Extremity: Bilateral: Atraumatic, Normal Color And Temperature, Normal ROM Neurological/Psych: Other (awake, alert, confused, moving all 4 extremities spontaneously) ED Course And Treatment - Laboratory Results Result Diagrams: 11/14/17 16:18 11/14/17 16:18 O2 Sat by Pulse Oximetry: 99 (RA) Pulse Ox Interpretation: Normal - Radiology CXR: Interpreted by Me, Viewed By Me CXR Interpretation: Yes: No Acute Disease. No: Infiltrates Progress Note: Blood work, UA ordered and reviewed. Patient given IV NS bolus. Insurance status discussed with regitration - patient has medicare that will cover inpatient stay. Hence discussed patient with medicine button buttonhole marker Dr. Powers. - Physician Consult Information Physician Contacted: Yaritza Powers Outcome Of Conversation: Discussed patient with medicine button buttonhole marker, agrees with admission for dehydration, failure to thrive, hypernatremia, agitation, advanced dementia. Disposition - Disposition Disposition: HOSPITALIZED Disposition Time: 17:01 Condition: STABLE - Clinical Impression Clinical Impression: Dementia, Failure to thrive, Dehydration, Hypernatremia, Agitation Decision To Admit - Pt Status Changed To: Hospital Disposition Of: [facility] Extended Stay Bed - InPatient: Physician Admission Certification: I certify that this patient requires 2 or more midnights of care for the following reason:: see notes - . Bed Request Type: Regular Admitting Physician: Yaritza Powers Patient Diagnosis: Dementia, Failure to thrive, Dehydration, Hypernatremia, Agitation
--- NOTE | 2017-11-14 17:36 | RAD ---
PROCEDURE: CHEST RADIOGRAPH, 1 VIEW HISTORY: AGITATION COMPARISON: 11/07/2017. FINDINGS: LUNGS: The lungs are well inflated and clear. PLEURA: No pneumothorax or pleural fluid seen. CARDIOVASCULAR: Normal. OSSEOUS STRUCTURES: No significant abnormalities. VISUALIZED UPPER ABDOMEN: Normal. OTHER FINDINGS: None. IMPRESSION: No active pulmonary disease.
[2017-11-14 18:12] LABS: URINE BILIRUBIN NEGATIVE (NEGATIVE); URINE BLOOD NEGATIVE (NEGATIVE); URINE CLARITY Clear (Clear); URINE COLOR Straw (YELLOW); URINE GLUCOSE (UA) NORMAL (Normal); URINE LEUKOCYTE ESTERASE NEG Leu/uL (Negative); URINE PROTEIN NEGATIVE (NEGATIVE); URINE UROBILINOGEN NORMAL mg/dL (0.2-1.0)
[2017-11-14] MEDS: Enoxaparin 40 mg Syringe SC SCH (21:53)
[2017-11-15] MEDS: Dextrose 5%/0.45% NS 1,000 ML IV SCH ×2 (07:30→17:15)
[2017-11-15] MEDS: Enoxaparin 40 mg Syringe SC SCH (10:00)
[2017-11-15] MEDS ORDERED: Pneumococcal 23-Valent Vaccine IM ONE (10:00)
[2017-11-15] MEDS ORDERED: Influenza Vaccine 60 mcg/0.5 mL SYR (4YR UP) IM ONE (10:00)
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
[2017-11-15 16:18] LABS: BLOOD UREA NITROGEN 13 mg/dL (9-20); CALCIUM 8.6 mg/dl (8.6-10.4); GFR AFRICAN-AMERICAN > 60; GFR NON-AFRICAN AMERICAN > 60
[2017-11-15 23:12] VITALS: O2SAT 97
[2017-11-16] MEDS: Dextrose 5%/0.45% NS 1,000 ML IV SCH ×3 (00:47→12:37)
--- NOTE | 2017-11-16 07:42 | HP ---
HISTORY OF PRESENT ILLNESS: This is 62-year-old male who is in hospital complaining of weakness, fatigue, tiredness, dehydration, failure to thrive, came to the ER, advised admission. The patient denies any dementia. PHYSICAL EXAMINATION: GENERAL: The patient is awake, alert, and oriented. VITAL SIGNS: Temperature 98, pulse 90. HEENT: Within normal limits. NECK: Supple. CHEST: Symmetrical. HEART: Regular. ABDOMEN: Soft. EXTREMITIES: No edema. IMPRESSION: The patient suffers from dehydration, failure to thrive bed rest, supportive care hydration. Yaritza Gagnon MD
[2017-11-16 07:55] VITALS: BP 129/82; PULSE 82; RESP 20; TEMP 98.3
[2017-11-16] MEDS: Enoxaparin 40 mg Syringe SC SCH (10:34)
--- NOTE | 2017-11-16 11:07 | CP.PCM.PN ---
Subjective - Date & Time of Evaluation Date of Evaluation: 11/16/17 Time of Evaluation: 11:05 - Subjective Subjective: PGY2 Medicine Note for Dr. Gagnon; all management as per Dr. Gagnon The patient remains confused and combatative and needs 24 hour supervision for safety reasons for himself and for others around him. unable to give meaningful ROS 2/2 to advanced dementia and TBI; is still unwilling to let patient go to nrusing home which is advised. Objective - Vital Signs/Intake and Output Vital Signs (last 24 hours): Temp Pulse Resp BP Pulse Ox 98.3 F 82 20 129/82 97 11/16/17 07:53 11/16/17 07:53 11/16/17 07:53 11/16/17 07:53 11/16/17 07:53 Intake and Output: 11/16/17 11/16/17 06:59 18:59 Intake Total 800 1000 Balance 800 1000 - Medications Medications: Current Medications Donepezil HCl (Aricept) 5 mg PO DAILY [facility] Last Admin: 11/16/17 10:34 Dose: 5 mg Enoxaparin Sodium (Lovenox) 40 mg SC DAILY [facility] Last Admin: 11/16/17 10:34 Dose: Not Given Dextrose/Sodium Chloride (Dextrose 5%/0.45% Ns 1000 Ml) 1,000 mls @ 100 mls/hr IV .Q10H [facility] Last Admin: 11/16/17 02:52 Dose: Not Given Lorazepam (Ativan) 1 mg PO Q8H PRN PRN Reason: Agitation Last Admin: 11/16/17 08:42 Dose: 1 mg Memantine (Namenda) 5 mg PO DAILY [facility] Last Admin: 11/16/17 10:34 Dose: 5 mg Quetiapine Fumarate (Seroquel) 50 mg PO HS [facility] Last Admin: 11/15/17 21:30 Dose: 50 mg - Labs Labs: 11/14/17 16:18 11/15/17 13:38 - Constitutional Appears: Cachectic, Chronically Ill - Head Exam Head Exam: ATRAUMATIC - Eye Exam Eye Exam: Normal appearance. absent: EOMI - ENT Exam ENT Exam: Mucous Membranes Moist - Neck Exam Neck Exam: Full ROM - Respiratory Exam Respiratory Exam: Clear to Ausculation Bilateral - Cardiovascular Exam Cardiovascular Exam: REGULAR RHYTHM - GI/Abdominal Exam GI & Abdominal Exam: Soft, Normal Bowel Sounds - Extremities Exam Extremities Exam: absent: Calf Tenderness - Neurological Exam Neurological Exam: Awake - Psychiatric Exam Psychiatric exam: Agitated - Skin Skin Exam: Warm Assessment and Plan - Assessment and Plan (Free Text) Assessment: patient is to be discharged today there is no change in management from previous the remains uncooperative with our recommendations; states she wants to take home but "just wishes he would stop screaming" continue to explain that the best option for the is a supervisor intermediates care facility; but the patients refuses as "she does not want him to stay there forever" even though she cannot fully take care of him, cannot afford proper 24 hour care, and does not wish to pay for jail options were given to the and she continues to refuse patient is for discharge today.
== END 2017-11-16 13:51 | disposition home or self-care (01) ==
LOC: C.ER 15:53 → INTOOBSV 17:01 → C.9E 17:01 → C.3T 18:05
PROVIDERS: ADMIT Internal Medicine Pulmonary Disease; ATTEND Internal Medicine Pulmonary Disease
DX: R45.1 Restlessness and agitation (principal); J44.9 Chronic obstructive pulmonary disease, unspecified; I12.9 Hypertensive chronic kidney disease with stage 1 through stage 4 chronic kidney disease, or unspecified chronic kidney disease; N18.9 Chronic kidney disease, unspecified; F03.90 Unspecified dementia, unspecified severity, without behavioral disturbance, psychotic disturbance, mood disturbance, and anxiety; Z87.820 Personal history of traumatic brain injury; E86.0 Dehydration; R62.7 Adult failure to thrive; E87.0 Hyperosmolality and hypernatremia; Z68.1 Body mass index [BMI] 19.9 or less, adult; N17.9 Acute kidney failure, unspecified; R32 Unspecified urinary incontinence; R15.9 Full incontinence of feces; Z87.891 Personal history of nicotine dependence; Z79.899 Other long term (current) drug therapy
CPT/HCPCS: 36415; 71045; 80048; 80053; 81001; 85025; 96372; 97162; 97166; 97530; 99285; G0378; G8978; G8979; G8987; G8988; J1630; J1650; J2060; J7040; J7042

== ENCOUNTER 2018-01-25 17:56 | Inpatient (IN) | payer MEDICARE, OTHER ==
[2018-01-25 17:57] VITALS: BMI 21.5
[2018-01-25] MEDS ORDERED: Sodium Chloride 0.9% 1,000 ML IV ONE (18:14)
[2018-01-25 18:42] LABS: BASO % 0.8 % (0.0-2.0); EOS % 0.8 % (0.0-4.0); HEMOGLOBIN 12.9 g/dL (12.0-18.0); LYMPH # 1.4 K/uL (1.0-4.3); MEAN CELL VOLUME 85.8 fL (80.0-94.0); MEAN CORPUSCULAR HEMOGLOBIN 29.9 pg (27.0-31.0); MEAN CORPUSCULAR HGB CONC 34.9 g/dL (33.0-37.0); MEAN PLATELET VOLUME 9.2 fL (7.2-11.7); MONO # 0.6 K/uL (0.0-0.8); MONO % 10.8 % (0.0-10.0); NEUT # 3.3 K/uL (1.8-7.0); NEUT % 61.6 % (50.0-75.0); RBC 4.32 Mil/uL (4.40-5.90); RED CELL DISTRIBUTION WIDTH 15.6 % (11.5-14.5); WHITE BLOOD COUNT 5.3 K/uL (4.8-10.8)
[2018-01-25 18:47] LABS: URINE BACTERIA RARE (<OCC); URINE BILIRUBIN NEGATIVE (NEGATIVE); URINE BLOOD NEGATIVE (NEGATIVE); URINE CLARITY Clear (Clear); URINE COLOR Yellow (YELLOW); URINE GLUCOSE (UA) NORMAL (Normal); URINE LEUKOCYTE ESTERASE NEG Leu/uL (Negative); URINE PROTEIN NEGATIVE (NEGATIVE); URINE UROBILINOGEN NORMAL mg/dL (0.2-1.0)
[2018-01-25 18:54] LABS: ALB/GLOB RATIO 1.1 (1.0-2.1); ALBUMIN 3.8 g/dL (3.5-5.0); ALT/SGPT 17 U/L (21-72); AST/SGOT 23 U/L (17-59); BLOOD UREA NITROGEN 19 mg/dL (9-20); CALCIUM 9.2 mg/dl (8.6-10.4); GFR AFRICAN-AMERICAN > 60; GFR NON-AFRICAN AMERICAN > 60
[2018-01-25 19:06] LABS: BARBITURATES, UR NEGATIVE (NEGATIVE); BENZODIAZEPINES, UR NEGATIVE (NEGATIVE); OPIATES, UR NEGATIVE (NEGATIVE); PHENCYCLIDINE, UR NEGATIVE (NEGATIVE)
--- NOTE | 2018-01-25 19:46 | C.PDOC ---
History Of Present Illness Pt was brought in by his due to severe agitation. She states that she injured her left hand while trying to take care of him. She states that she is not able to take care of him at home anymore. Time Seen by Provider: 01/25/18 18:02 Chief Complaint (Nursing): Psychiatric Evaluation History Per: Patient, Family () History/Exam Limitations: clinical condition, other (Dementia) Onset/Duration Of Symptoms: Days Current Symptoms Are (Timing): Still Present Suicide/Self Injury Attempted (Context): None Modifying Factor(s): None Severity: Severe Associated Symptoms: Agitation Additional History Per: Prior Records Past Medical History Reviewed: Historical Data, Nursing Documentation, Vital Signs Vital Signs: Last Vital Signs Temp 97.6 F 01/25/18 18:03 Pulse 88 01/25/18 18:03 Resp 18 01/25/18 18:03 BP 112/65 01/25/18 18:03 Pulse Ox 100 01/25/18 18:03 - Medical History PMH: COPD, Dementia, HTN, Chronic Kidney Disease Other PMH: Traumatic Brain Injury? Family History: States: Unknown Family Hx - Social History Hx Alcohol Use: No Hx Substance Use: No - Immunization History Hx Tetanus Toxoid Vaccination: No (unknown) Hx Influenza Vaccination: No (unknown) Hx Pneumococcal Vaccination: No (unknown) Review Of Systems Review Of Systems: ROS cannot be obtained secondary to pt's inabilty to answer questions. Physical Exam - Physical Exam Appears: Combative, Agitated, Confused Skin: Normal Color, Warm, Dry Head: Atraumatic Eye(s): bilateral: PERRL Neck: Normal ROM, No Midline Cervical Tenderness, No Step Off Deformity, Supple Cardiovascular: Rhythm Regular Respiratory: Normal Breath Sounds, No Accessory Muscle Use Gastrointestinal/Abdominal: Soft Extremity: Normal ROM, No Deformity Neurological/Psych: No Normal Speech (pt is nonverbal), Inappropriate Response To Command, Other (Moving all extremities) ED Course And Treatment - Laboratory Results Result Diagrams: 01/25/18 18:38 01/25/18 18:38 Lab Interpretation: No Acute Changes O2 Sat by Pulse Oximetry: 100 Pulse Ox Interpretation: Normal Progress Note: Pt's would like pt to be admitted to a care home. Disposition Discussed With : Yaritza Gagnon Comment: He accepted pt on his service and gave admitting orders to the nurse. Doctor Will See Patient In The: Hospital Counseled Patient/Family Regarding: Studies Performed, Diagnosis - Disposition Disposition: HOSPITALIZED Disposition Time: 19:49 Condition: FAIR - Clinical Impression Clinical Impression: Severe dementia, Failure to thrive, Agitation
[2018-01-26] MEDS: Enoxaparin 40 mg Syringe SC SCH (16:30)
[2018-01-27] MEDS ORDERED: Pneumococcal 23-Valent Vaccine IM ONE (10:00)
[2018-01-27] MEDS: Enoxaparin 40 mg Syringe SC SCH (10:36)
--- NOTE | 2018-01-28 07:59 | HP ---
HISTORY OF PRESENT ILLNESS: A 62-year-old male with history of dementia to the hospital with chief complaint of restlessness, altered mental status, agitation, states he is unable to manage at home brought to the hospital, the patient advised admission. The patient is slightly confused, not oriented to time, place, very restless, not cooperating. PHYSICAL EXAMINATION: VITAL SIGNS: Temperature 98 . HEENT: Within normal limits. NECK: Supple. CHEST: Symmetrical. HEART: Regular. ABDOMEN: Soft. EXTREMITIES: No edema. ASSESSMENT AND PLAN: The patient has altered mental status, dementia, agitation. The patient to get bed rest, supportive care, one to one precaution. Yaritza Gagnon MD
--- NOTE | 2018-01-28 08:17 | PN ---
DATE: 01/27/2018 SUBJECTIVE: The patient is still altered. Supportive care. Placement plan is to start tomorrow. Yaritza Gagnon MD
--- NOTE | 2018-01-28 10:33 | CP.PCM.PN ---
Subjective - Date & Time of Evaluation Date of Evaluation: 01/28/18 Time of Evaluation: 08:00 - Subjective Subjective: PGY 2 medicine progress note for Dr. Gagnon: Patient was seen and examined at bedside this morning. He was resting in bed comfortably. Music was playing on his tv and he was clapping his hands. Patient is non verbal. CP was at bedside. She stated the patient has been producing urine and has been eating 100% of his meals with assistance. He did not appear to be in any distress. Patient is awaiting fdc placement. ROS unattainable due to patient's condition. Objective - Vital Signs/Intake and Output Vital Signs (last 24 hours): Temp Pulse Resp BP Pulse Ox 98.1 F 70 20 121/69 97 01/28/18 08:00 01/28/18 08:00 01/28/18 08:00 01/28/18 08:00 01/28/18 08:00 Intake and Output: 01/28/18 01/28/18 06:59 18:59 Intake Total 350 Output Total 200 Balance 150 - Medications Medications: Current Medications Docusate Sodium (Colace) 100 mg PO BID [facility] Last Admin: 01/27/18 17:22 Dose: 100 mg Donepezil HCl (Aricept) 5 mg PO DAILY [facility] Last Admin: 01/27/18 10:36 Dose: 5 mg Enoxaparin Sodium (Lovenox) 40 mg SC DAILY [facility] Last Admin: 01/27/18 10:36 Dose: 40 mg Memantine (Namenda) 5 mg PO DAILY [facility] Last Admin: 01/27/18 10:35 Dose: 5 mg Quetiapine Fumarate (Seroquel) 50 mg PO HS [facility] Last Admin: 01/27/18 21:13 Dose: 50 mg Ziprasidone (Geodon Inj) 10 mg IM Q12 PRN PRN Reason: Agitation Last Admin: 01/27/18 10:41 Dose: 10 mg - Labs Labs: 01/25/18 18:38 01/25/18 18:38 - Constitutional Appears: Non-toxic, No Acute Distress, Cachectic - Head Exam Head Exam: ATRAUMATIC, NORMAL INSPECTION - Eye Exam Eye Exam: EOMI - ENT Exam ENT Exam: Mucous Membranes Moist - Respiratory Exam Respiratory Exam: Clear to Ausculation Bilateral, NORMAL BREATHING PATTERN. absent: Respiratory Distress - Cardiovascular Exam Cardiovascular Exam: REGULAR RHYTHM, +S1, +S2 - GI/Abdominal Exam GI & Abdominal Exam: Soft, Normal Bowel Sounds. absent: Distended, Firm, Guarding, Tenderness - Extremities Exam Extremities Exam: Normal Inspection - Back Exam Back Exam: NORMAL INSPECTION - Neurological Exam Neurological Exam: Alert, Awake. absent: Oriented x3 - Psychiatric Exam Psychiatric exam: Normal Affect, Normal Mood - Skin Additional comments: no sores Assessment and Plan - Assessment and Plan (Free Text) Assessment: Dementia sever, patient is non verbal and need max assist Aricept 5mg PO daily Namenda 5mg PO daily Seroquel 50mg PO HS Geodon 10mg IM Q12 prn agitation Failure to thrive, Cachexia Patient is now eating 100% of his meals with assistance BMI 16 Leukocytosis WBC 12 f/u chest X ray, UA, and urine culture afebrile Prophylaxis Colace 100mg PO BID Lovenox 40mg SC daily Dispo: Patient will need long term care pharmacist placement if the is unable to care for him. Case/social is on board for arrangements All management per Dr. Gagnon. Renetta Murillo DO PGY 2
[2018-01-28] MEDS: Enoxaparin 40 mg Syringe SC SCH (11:50)
[2018-01-28 12:01] LABS: BASO % 0.3 % (0.0-2.0); EOS % 0.4 % (0.0-4.0); HEMOGLOBIN 13.4 g/dL (12.0-18.0); LYMPH # 0.9 K/uL (1.0-4.3); LYMPH % 7.7 % (20.0-40.0); MEAN CELL VOLUME 85.4 fL (80.0-94.0); MEAN CORPUSCULAR HEMOGLOBIN 29.7 pg (27.0-31.0); MEAN CORPUSCULAR HGB CONC 34.8 g/dL (33.0-37.0); MEAN PLATELET VOLUME 9.2 fL (7.2-11.7); NEUT # 10.2 K/uL (1.8-7.0); NEUT % 83.6 % (50.0-75.0); PLATELET COUNT 143 K/uL (130-400); RBC 4.51 Mil/uL (4.40-5.90); RED CELL DISTRIBUTION WIDTH 15.3 % (11.5-14.5); WHITE BLOOD COUNT 12.3 K/uL (4.8-10.8)
[2018-01-28 12:17] LABS: ALBUMIN 3.6 g/dL (3.5-5.0); ALT/SGPT 18 U/L (21-72); AST/SGOT 21 U/L (17-59); BLOOD UREA NITROGEN 13 mg/dL (9-20); CALCIUM 8.9 mg/dl (8.6-10.4); GFR AFRICAN-AMERICAN > 60; GFR NON-AFRICAN AMERICAN > 60
[2018-01-28 12:54] LABS: LYMPHOCYTE 7 % (20-40); MONOCYTE 6 % (0-10); NEUTROPHIL 87 % (50-75); PLATELET ESTIMATE NORMAL (NORMAL); TOTAL CELLS COUNTED 100
--- NOTE | 2018-01-28 13:32 | RAD ---
HISTORY: elevated wbc COMPARISON: Chest radiograph dated 11/14/2017 FINDINGS: LUNGS: No active pulmonary disease. PLEURA: No significant pleural effusion identified, no pneumothorax apparent. CARDIOVASCULAR: Normal. OSSEOUS STRUCTURES: Old right 9th posterior lateral rib fracture. Unchanged. VISUALIZED UPPER ABDOMEN: Normal. OTHER FINDINGS: None. IMPRESSION: No active disease.
[2018-01-28 14:44] LABS: SQUAMOUS EPITHIAL 1 /hpf (0-5); URINE BACTERIA OCC (<OCC); URINE BILIRUBIN NEGATIVE (NEGATIVE); URINE BLOOD 3+ (NEGATIVE); URINE CLARITY Hazy (Clear); URINE COLOR Yellow (YELLOW); URINE GLUCOSE (UA) NORMAL (Normal); URINE LEUKOCYTE ESTERASE 3+ Leu/uL (Negative); URINE PROTEIN 1+ mg/dL (NEGATIVE); URINE UROBILINOGEN NORMAL mg/dL (0.2-1.0)
--- NOTE | 2018-01-29 07:42 | CP.PCM.PN ---
Subjective - Date & Time of Evaluation Date of Evaluation: 01/29/18 Time of Evaluation: 08:00 - Subjective Subjective: PGY 2 medicine progress note for Dr. Gagnon: Patient was seen and examined at bedside this morning. He was working with OT this morning. He was clapping his hands to music and moving all extremities. He did not appear to be in any distress. Patient is awaiting snf placement. ROS unattainable due to patient's condition. Objective - Vital Signs/Intake and Output Vital Signs (last 24 hours): Temp Pulse Resp BP Pulse Ox 97.7 F 60 20 104/66 97 01/29/18 07:00 01/29/18 07:00 01/29/18 07:00 01/29/18 07:00 01/29/18 07:00 Intake and Output: 01/29/18 01/29/18 06:59 18:59 Intake Total 550 Balance 550 - Medications Medications: Current Medications Docusate Sodium (Colace) 100 mg PO BID [facility] Last Admin: 01/28/18 18:08 Dose: 100 mg Donepezil HCl (Aricept) 5 mg PO DAILY [facility] Last Admin: 01/28/18 12:11 Dose: 5 mg Enoxaparin Sodium (Lovenox) 40 mg SC DAILY [facility] Last Admin: 01/28/18 11:50 Dose: 40 mg Memantine (Namenda) 5 mg PO DAILY [facility] Last Admin: 01/28/18 11:49 Dose: 5 mg Quetiapine Fumarate (Seroquel) 50 mg PO HS [facility] Last Admin: 01/28/18 22:11 Dose: 50 mg Ziprasidone (Geodon Inj) 10 mg IM Q12 PRN PRN Reason: Agitation Last Admin: 01/27/18 10:41 Dose: 10 mg - Labs Labs: 01/28/18 11:47 01/28/18 11:47 - Constitutional Appears: Non-toxic, No Acute Distress, Cachectic, Chronically Ill - Head Exam Head Exam: NORMAL INSPECTION - Eye Exam Eye Exam: EOMI - ENT Exam ENT Exam: Mucous Membranes Moist - Respiratory Exam Respiratory Exam: Clear to Ausculation Bilateral, NORMAL BREATHING PATTERN. absent: Respiratory Distress - Cardiovascular Exam Cardiovascular Exam: REGULAR RHYTHM, +S1, +S2 - GI/Abdominal Exam GI & Abdominal Exam: Soft, Normal Bowel Sounds. absent: Distended, Firm, Guarding, Tenderness - Extremities Exam Extremities Exam: Normal Inspection - Back Exam Back Exam: NORMAL INSPECTION - Neurological Exam Neurological Exam: Alert, Awake. absent: Oriented x3 - Psychiatric Exam Psychiatric exam: Normal Affect, Normal Mood - Skin Additional comments: no ulcers/sores Assessment and Plan - Assessment and Plan (Free Text) Assessment: Dementia severe, patient is non verbal and need max assist Aricept 5mg PO daily Namenda 5mg PO daily Seroquel 50mg PO HS Geodon 10mg IM Q12 prn agitation Failure to thrive, Cachexia Patient is now eating 100% of his meals with assistance BMI 16 UTI UA 1+ protein, 3+ blood, 3+ LE, 70 WBC, 10 RBC f/u urine culture, then can give PO abx depending on results Ceftriazone 1gram IVPB daily - given 2 doses afebrile WBC 12 chest X ray - no active disease Prophylaxis Colace 100mg PO BID Lovenox 40mg SC daily Dispo: Patient will need snf placement if the is unable to care for him. Case/social is on board for arrangements. Will need to wait for Urine C/S results. All management per Dr. Gagnon. Renetta Murillo DO PGY 2
[2018-01-29] MEDS: Enoxaparin 40 mg Syringe SC SCH (11:00)
[2018-01-29 11:47] LABS: BASO % 0.4 % (0.0-2.0); EOS # 0.1 K/uL (0.0-0.7); EOS % 0.6 % (0.0-4.0); HEMOGLOBIN 13.3 g/dL (12.0-18.0); LYMPH # 0.8 K/uL (1.0-4.3); LYMPH % 9.3 % (20.0-40.0); MEAN CORPUSCULAR HEMOGLOBIN 30.1 pg (27.0-31.0); MEAN CORPUSCULAR HGB CONC 35.1 g/dL (33.0-37.0); MEAN PLATELET VOLUME 9.3 fL (7.2-11.7); MONO # 0.7 K/uL (0.0-0.8); MONO % 7.8 % (0.0-10.0); NEUT # 7.2 K/uL (1.8-7.0); NEUT % 81.9 % (50.0-75.0); NRBC % 0.6 % (0.0-2.0); PLATELET COUNT 156 K/uL (130-400); RBC 4.42 Mil/uL (4.40-5.90); WHITE BLOOD COUNT 8.8 K/uL (4.8-10.8)
[2018-01-29 12:02] LABS: ALB/GLOB RATIO 1.1 (1.0-2.1); ALT/SGPT < 6 U/L (21-72); AST/SGOT 21 U/L (17-59); BLOOD UREA NITROGEN 16 mg/dL (9-20); CALCIUM 8.6 mg/dl (8.6-10.4); GFR AFRICAN-AMERICAN > 60; GFR NON-AFRICAN AMERICAN > 60
[2018-01-29 12:11] LABS: LYMPHOCYTE 5 % (20-40); MONOCYTE 4 % (0-10); NEUTROPHIL 91 % (50-75); PLATELET ESTIMATE NORMAL (NORMAL); TOTAL CELLS COUNTED 100
[2018-01-30 08:53] LABS: BLOOD UREA NITROGEN 16 mg/dL (9-20); CALCIUM 9.2 mg/dl (8.6-10.4); GFR AFRICAN-AMERICAN > 60; GFR NON-AFRICAN AMERICAN > 60
[2018-01-30 09:45] LABS: BASO # 0.1 K/uL (0.0-0.2); BASO % 0.7 % (0.0-2.0); EOS # 0.1 K/uL (0.0-0.7); EOS % 1.7 % (0.0-4.0); HEMOGLOBIN 13.1 g/dL (12.0-18.0); LYMPH # 2.6 K/uL (1.0-4.3); LYMPH % 28.9 % (20.0-40.0); MEAN CELL VOLUME 91.2 fL (80.0-94.0); MEAN CORPUSCULAR HEMOGLOBIN 29.8 pg (27.0-31.0); MEAN CORPUSCULAR HGB CONC 32.7 g/dL (33.0-37.0); MEAN PLATELET VOLUME 9.4 fL (7.2-11.7); MONO # 0.8 K/uL (0.0-0.8); MONO % 8.7 % (0.0-10.0); NEUT # 5.3 K/uL (1.8-7.0); NRBC % 0.2 % (0.0-2.0); RBC 4.39 Mil/uL (4.40-5.90); RED CELL DISTRIBUTION WIDTH 15.4 % (11.5-14.5); WHITE BLOOD COUNT 8.8 K/uL (4.8-10.8)
--- NOTE | 2018-01-30 10:06 | CP.PCM.PN ---
Subjective - Date & Time of Evaluation Date of Evaluation: 01/30/18 Time of Evaluation: 10:02 - Subjective Subjective: PGY2 progress note for Dr. Gagnon Pt seen and examined at bedside. Pt was easily arousable for sleep. resting comfortably. No acute events overnight. ROS unobtainable due to hx of dementia. Objective - Vital Signs/Intake and Output Vital Signs (last 24 hours): Temp Pulse Resp BP Pulse Ox 98.1 F 69 20 129/78 98 01/29/18 23:58 01/29/18 23:58 01/29/18 23:58 01/29/18 23:58 01/29/18 23:58 Intake and Output: 01/30/18 01/30/18 06:59 18:59 Intake Total 240 Balance 240 - Medications Medications: Current Medications Docusate Sodium (Colace) 100 mg PO BID [facility] Last Admin: 01/29/18 17:42 Dose: 100 mg Donepezil HCl (Aricept) 5 mg PO DAILY [facility] Last Admin: 01/29/18 11:00 Dose: 5 mg Enoxaparin Sodium (Lovenox) 40 mg SC DAILY [facility] Last Admin: 01/29/18 11:00 Dose: 40 mg Ceftriaxone Sodium 1 gm/ (Sodium Chloride) 100 mls @ 100 mls/hr IVPB DAILY [facility] PRN Reason: Protocol Last Admin: 01/29/18 19:23 Dose: 100 mls/hr Memantine (Namenda) 5 mg PO DAILY [facility] Last Admin: 01/29/18 11:00 Dose: 5 mg Quetiapine Fumarate (Seroquel) 50 mg PO HS [facility] Last Admin: 01/29/18 21:04 Dose: 50 mg Ziprasidone (Geodon Inj) 10 mg IM Q12 PRN PRN Reason: Agitation Last Admin: 01/30/18 06:45 Dose: 10 mg - Labs Labs: 01/30/18 08:00 01/30/18 08:00 - Constitutional Appears: Non-toxic, No Acute Distress - Head Exam Head Exam: ATRAUMATIC - ENT Exam ENT Exam: Mucous Membranes Moist - Respiratory Exam Respiratory Exam: Clear to Ausculation Bilateral. absent: Accessory Muscle Use , Rales, Rhonchi, Wheezes, Respiratory Distress - Cardiovascular Exam Cardiovascular Exam: REGULAR RHYTHM, +S1, +S2 - GI/Abdominal Exam GI & Abdominal Exam: Soft, Normal Bowel Sounds. absent: Distended, Firm, Guarding, Rigid, Tenderness, Organomegaly - Neurological Exam Neurological Exam: Alert, Awake, Oriented x3 - Psychiatric Exam Psychiatric exam: Normal Affect, Normal Mood - Skin Skin Exam: Dry, Intact, Normal Color, Warm Assessment and Plan - Assessment and Plan (Free Text) Assessment: Dementia severe, patient is non verbal and need max assist Aricept 5mg PO daily Namenda 5mg PO daily Seroquel 50mg PO HS Geodon 10mg IM Q12 prn agitation Failure to thrive, Cachexia Patient is now eating 100% of his meals with assistance BMI 16 UTI UA 1+ protein, 3+ blood, 3+ LE, 70 WBC, 10 RBC Urine culture grew gram negative rods. Pending sensitivity to start pt on po abx Ceftriazone 1gram IVPB daily chest X ray - no active disease metabolic acidosis Bicarb noted to be 9 this morning. will check ABG Pt given stat dose of sodium bicarb po Prophylaxis Colace 100mg PO BID Lovenox 40mg SC daily Dispo: Patient will need equipment operator intermodal yard placement if the is unable to care for him. Case/social is on board for arrangements. Will need to wait for Urine C/S results. All management per Dr. Gagnon.
[2018-01-30] MEDS: Enoxaparin 40 mg Syringe SC SCH (10:16)
[2018-01-30 10:54] LABS: ARTERIAL BLOOD GAS HCO3 24.1 mmol/L (21-28); ARTERIAL BLOOD GAS HEMOGLOBIN 15.2 g/dL (11.7-17.4); ARTERIAL BLOOD GAS O2 SAT 99.6 % (95-98); ARTERIAL BLOOD GAS PCO2 38 mm/Hg (35-45); ARTERIAL BLOOD GAS PO2 98 mm/Hg (80-100); ARTERIAL BLOOD GAS TCO2 24.7 mmol/L (22-28)
[2018-01-31 07:43] LABS: BASO % 0.6 % (0.0-2.0); EOS # 0.1 K/uL (0.0-0.7); EOS % 1.9 % (0.0-4.0); HEMOGLOBIN 12.8 g/dL (12.0-18.0); LYMPH # 1.1 K/uL (1.0-4.3); MEAN CELL VOLUME 85.8 fL (80.0-94.0); MEAN CORPUSCULAR HEMOGLOBIN 29.9 pg (27.0-31.0); MEAN CORPUSCULAR HGB CONC 34.9 g/dL (33.0-37.0); MONO # 0.8 K/uL (0.0-0.8); MONO % 13.2 % (0.0-10.0); NEUT # 3.8 K/uL (1.8-7.0); NEUT % 65.3 % (50.0-75.0); RBC 4.29 Mil/uL (4.40-5.90); RED CELL DISTRIBUTION WIDTH 14.6 % (11.5-14.5); WHITE BLOOD COUNT 5.8 K/uL (4.8-10.8)
[2018-01-31 07:45] LABS: ALB/GLOB RATIO 0.9 (1.0-2.1); ALBUMIN 3.4 g/dL (3.5-5.0); ALT/SGPT 21 U/L (21-72); AST/SGOT 28 U/L (17-59); BLOOD UREA NITROGEN 22 mg/dL (9-20); CALCIUM 9.1 mg/dl (8.6-10.4); GFR AFRICAN-AMERICAN > 60; GFR NON-AFRICAN AMERICAN > 60; URIC ACID 5.3 mg/dL (3.5-8.5)
--- NOTE | 2018-01-31 07:48 | CP.PCM.PN ---
Subjective - Date & Time of Evaluation Date of Evaluation: 01/31/18 Time of Evaluation: 07:30 - Subjective Subjective: PGY2 progress note for Dr. Gagnon Patient was seen and examined at bedside. HE was easily arousable for sleep. resting comfortably. No acute events overnight. ROS unobtainable due to hx of dementia. Objective - Vital Signs/Intake and Output Vital Signs (last 24 hours): Temp Pulse Resp BP Pulse Ox 98.1 F 72 20 127/76 97 01/31/18 00:00 01/31/18 00:00 01/31/18 00:00 01/31/18 00:00 01/31/18 00:00 - Medications Medications: Current Medications Ciprofloxacin (Cipro) 500 mg PO BID [facility] PRN Reason: Protocol Last Admin: 01/30/18 18:04 Dose: 500 mg Docusate Sodium (Colace) 100 mg PO BID [facility] Last Admin: 01/30/18 18:04 Dose: 100 mg Donepezil HCl (Aricept) 5 mg PO DAILY [facility] Last Admin: 01/30/18 10:17 Dose: 5 mg Enoxaparin Sodium (Lovenox) 40 mg SC DAILY [facility] Last Admin: 01/30/18 10:16 Dose: 40 mg Ceftriaxone Sodium 1 gm/ (Sodium Chloride) 100 mls @ 100 mls/hr IVPB DAILY [facility] PRN Reason: Protocol Last Admin: 01/30/18 10:16 Dose: 100 mls/hr Lorazepam (Ativan) 1 mg IVP Q8H PRN PRN Reason: Anxiety Last Admin: 01/30/18 20:04 Dose: 1 mg Memantine (Namenda) 5 mg PO DAILY [facility] Last Admin: 01/30/18 10:17 Dose: 5 mg Quetiapine Fumarate (Seroquel) 50 mg PO HS [facility] Last Admin: 01/30/18 21:51 Dose: 50 mg Ziprasidone (Geodon Inj) 10 mg IM Q12 PRN PRN Reason: Agitation Last Admin: 01/30/18 06:45 Dose: 10 mg - Labs Labs: 01/30/18 08:00 01/31/18 07:20 - Constitutional Appears: Non-toxic, No Acute Distress, Cachectic - Head Exam Head Exam: ATRAUMATIC, NORMAL INSPECTION - Eye Exam Eye Exam: EOMI, PERRL Pupil Exam: NORMAL ACCOMODATION - ENT Exam ENT Exam: Mucous Membranes Moist - Respiratory Exam Respiratory Exam: Clear to Ausculation Bilateral, NORMAL BREATHING PATTERN. absent: Respiratory Distress - Cardiovascular Exam Cardiovascular Exam: REGULAR RHYTHM, +S1, +S2 - GI/Abdominal Exam GI & Abdominal Exam: Soft, Normal Bowel Sounds. absent: Distended, Firm, Guarding, Tenderness - Extremities Exam Extremities Exam: Normal Inspection - Back Exam Back Exam: NORMAL INSPECTION - Neurological Exam Neurological Exam: Alert, Awake. absent: Oriented x3 - Psychiatric Exam Psychiatric exam: Normal Affect, Normal Mood - Skin Skin Exam: Normal Color Assessment and Plan - Assessment and Plan (Free Text) Assessment: Dementia severe, patient is non verbal and need max assist Aricept 5mg PO daily Namenda 5mg PO daily Seroquel 50mg PO HS Geodon 10mg IM Q12 prn agitation Failure to thrive, Cachexia Patient is now eating 100% of his meals with assistance BMI 16 UTI UA 1+ protein, 3+ blood, 3+ LE, 70 WBC, 10 RBC Urine culture grew gram negative rods sensitive to everything. Will repeat UA and culture today Was treated with Ceftriaxone IV x 3 doses Patient to take Cipro 500mg PO BID x 3 days chest X ray - no active disease metabolic acidosis RESOLVED, was likely secondary to lab value error Bicarb noted to be 9 this morning. will check ABG Pt given stat dose of sodium bicarb po Prophylaxis Colace 100mg PO BID Lovenox 40mg SC daily Dispo: Patient is stable for discharge to rehab facility when bed is available. Patient is to follow up with his primary care within one week of discharge. Patient is to continue all of his home medications. Patient is to complete the 3 days course of Cipro abx for UTI. All management per Dr. Gagnon.
[2018-01-31] MEDS: Enoxaparin 40 mg Syringe SC SCH (10:02)
[2018-01-31 23:12] VITALS: BP 111/76; PULSE 76; RESP 18; TEMP 97.2; O2SAT 99
--- NOTE | 2018-02-12 08:10 | DS ---
DATE: 01/31/2018 The patient was admitted to the hospital with chief complaint of altered mental status, weakness, fatigue. The patient came to the hospital. The patient was placed on bedrest, neuro check, seen by Psych. The patient was given Ativan, showed improvement, discharged, to be followed up as outpatient. Yaritza Gagnon MD
== END 2018-01-31 23:40 | DRG 948 ==
LOC: C.ER 17:56 → C.9E 19:38 → C.3T 20:14
PROVIDERS: ADMIT Internal Medicine Pulmonary Disease; ATTEND Internal Medicine Pulmonary Disease
DX: R41.82 Altered mental status, unspecified (principal); E87.2 Acidosis; N39.0 Urinary tract infection, site not specified; Z68.1 Body mass index [BMI] 19.9 or less, adult; F03.90 Unspecified dementia, unspecified severity, without behavioral disturbance, psychotic disturbance, mood disturbance, and anxiety; R64 Cachexia; R62.7 Adult failure to thrive; R45.1 Restlessness and agitation

== ENCOUNTER 2018-06-02 19:40 | Inpatient (IN) | payer MEDICARE, SELFPAY ==
--- NOTE | 2018-06-02 19:52 | C.PDOC ---
History Of Present Illness The patient is brought to the ED by ambulance for evaluation of altered mental status. As per , patient has not been sleeping and was somewhat agitated and combative at home. Patient was sedated by ALS with Versed and Ativan en route to ED. Patient is currently sedated and unable to offer additional history. Time Seen by Provider: 06/02/18 19:52 History Per: EMS, Family History/Exam Limitations: other (sedated) Onset/Duration Of Symptoms: Days Current Symptoms Are (Timing): Still Present Severity: None Pain Scale Rating Of: 0 Reports Recently: Seen In ED, Treated By A Physician, Hospitalized Recent travel outside of the [place]: No Additional History Per: EMS, Family Past Medical History Reviewed: Historical Data, Nursing Documentation, Vital Signs Vital Signs: Last Vital Signs Temp 98.4 F 06/02/18 19:55 Pulse 65 06/02/18 22:08 Resp 12 06/02/18 22:08 BP 137/76 06/02/18 22:08 Pulse Ox 97 06/02/18 22:50 - Medical History PMH: COPD, Dementia, HTN, Chronic Kidney Disease Surgical History: No Surg Hx Family History: States: Unknown Family Hx - Social History Hx Alcohol Use: No Hx Substance Use: No - Immunization History Hx Tetanus Toxoid Vaccination: No (unknown) Hx Influenza Vaccination: No (unknown) Hx Pneumococcal Vaccination: No (unknown) Review Of Systems Review Of Systems: ROS cannot be obtained secondary to pt's inabilty to answer questions. Physical Exam - Physical Exam Appears: Non-toxic, No Acute Distress, Other (cachectic) Skin: Warm, Dry Head: Normacephalic Eye(s): bilateral: Normal Inspection Oral Mucosa: Dry Teeth: No Normal Dentition (poor, secondary to bruxism) Neck: Supple Chest: Symmetrical, No Deformity, No Tenderness Cardiovascular: Rhythm Regular, No Murmur Respiratory: No Rales, No Rhonchi, No Wheezing Gastrointestinal/Abdominal: Soft, No Tenderness, No Distention Male Genital: Normal Inspection Extremity: Normal ROM (moving all extremities ), Capillary Refill (less than 2 seconds ) Extremity: Bilateral: Atraumatic Pulses: Left Dorsalis Pedis: Normal, Right Dorsalis Pedis: Normal Neurological/Psych: Other (sedated, non-responsive to verbal commands ) Gait: Unable To Assess ED Course And Treatment - Laboratory Results Result Diagrams: 06/02/18 20:24 06/02/18 20:24 ECG: Interpreted By Me, Viewed By Me ECG Rhythm: Atrial Fibrillation (78), Nonspecific Changes O2 Sat by Pulse Oximetry: 97 (on RA) Pulse Ox Interpretation: Normal - Radiology CXR: Interpreted by Me, Viewed By Me CXR Interpretation: No: Infiltrates, Fracture, Pnemothorax Progress Note: Bloodwork, urinalysis, CT Head, EKG ordered and reviewed. IV Fluids given. Disposition Discussed With : Yaritza Gagnon Comment: accepted the pt on his service and took over the care at 10:49 PM Doctor Will See Patient In The: Hospital Counseled Patient/Family Regarding: Studies Performed, Diagnosis - Disposition Disposition: HOSPITALIZED Disposition Time: 19:52 Condition: GUARDED - POA Present On Arrival: Poor Glycemic Control - Clinical Impression Clinical Impression: Dementia, Altered mental status, Hypernatremia - Scribe Statement The provider has reviewed the documentation as recorded by the Scribe (Gisel Khan) Provider Attestation: All medical record entries made by the Scribe were at my direction and personally dictated by me. I have reviewed the chart and agree that the record accurately reflects my personal performance of the history, physical exam, medical decision making, and the department course for this patient. I have also personally directed, reviewed, and agree with the discharge instructions and disposition. Decision To Admit - Pt Status Changed To: Hospital Disposition Of: Inpatient - Admit Certification Admit to Inpatient:: After my assessment, the patient will require hospitalization for at least two midnights. This is because of the severity of symptoms shown, intensity of services needed, and/or the medical risk in this patient being treated as an outpatient. - InPatient: Physician Admission Certification: I certify that this patient requires 2 or more midnights of care for the following reason:: After my assessment, the patient will require hospitalization for at least two midnights. This is because of the severity of symptoms shown, intensity of services needed, and/or the medical risk in this patient being treated as an outpatient. - . Bed Request Type: Regular Admitting Physician: Yaritza Gagnon Patient Diagnosis: Dementia, Altered mental status, Hypernatremia
[2018-06-02 19:54] VITALS: BMI 16.6
[2018-06-02] MEDS ORDERED: Sodium Chloride 0.9% 1,000 ML IV ONE (19:54)
[2018-06-02 20:28] LABS: ABG ALLEN TEST NEG; ARTERIAL BLOOD GAS HCO3 21.7 mmol/L (21-28); ARTERIAL BLOOD GAS O2 SAT 98.7 % (95-98); ARTERIAL BLOOD GAS PCO2 38 mm/Hg (35-45); ARTERIAL BLOOD GAS PH 7.35 (7.35-7.45); ARTERIAL BLOOD GAS PO2 100 mm/Hg (80-100); ARTERIAL BLOOD GAS TCO2 22.2 mmol/L (22-28)
[2018-06-02 20:29] LABS: BASO % 0.4 % (0.0-2.0); EOS % 0.3 % (0.0-4.0); HEMOGLOBIN 13.2 g/dL (12.0-18.0); LYMPH % 16.9 % (20.0-40.0); MEAN CELL VOLUME 86.7 fL (80.0-94.0); MEAN CORPUSCULAR HEMOGLOBIN 29.3 pg (27.0-31.0); MEAN CORPUSCULAR HGB CONC 33.8 g/dL (33.0-37.0); MEAN PLATELET VOLUME 9.5 fL (7.2-11.7); MONO # 0.4 K/uL (0.0-0.8); MONO % 6.5 % (0.0-10.0); NEUT # 4.5 K/uL (1.8-7.0); NEUT % 75.9 % (50.0-75.0); RBC 4.5 Mil/uL (4.40-5.90); RED CELL DISTRIBUTION WIDTH 15.6 % (11.5-14.5)
[2018-06-02] MEDS ORDERED: Sodium Chloride 0.9% 2,000 ML IV ONE (20:29)
[2018-06-02 20:41] LABS: URINE BACTERIA RARE (<OCC); URINE BILIRUBIN NEGATIVE (NEGATIVE); URINE BLOOD 1+ (NEGATIVE); URINE CLARITY Clear (Clear); URINE COLOR Yellow (YELLOW); URINE GLUCOSE (UA) NORMAL (Normal); URINE HYALINE CAST 0-2 /lpf (0-2); URINE LEUKOCYTE ESTERASE NEG Leu/uL (Negative); URINE PROTEIN NEGATIVE (NEGATIVE); URINE UROBILINOGEN NORMAL mg/dL (0.2-1.0)
[2018-06-02] MEDS ORDERED: Sodium Chloride 0.9% 2,000 ML ONE (20:42)
[2018-06-02 20:43] LABS: ALB/GLOB RATIO 1.2 (1.0-2.1); ALBUMIN 4.5 g/dL (3.5-5.0); ALT/SGPT 10 U/L (21-72); AST/SGOT 18 U/L (17-59); BLOOD UREA NITROGEN 24 mg/dL (9-20); CALCIUM 9.6 mg/dl (8.6-10.4); GFR NON-AFRICAN AMERICAN > 60; LIPASE 136 U/L (23-300)
[2018-06-03] MEDS ORDERED: Sodium Chloride 0.9% 1,000 ML ONE (03:40)
[2018-06-03 04:56] LABS: VENOUS BLOOD GAS BASE EXCESS 5.6 mmol/L (0.0-2.0); VENOUS BLOOD GAS PCO2 58 mmHg (40-60); VENOUS BLOOD GAS PO2 17 mm/Hg (30-55); VENOUS BLOOD PH 7.36 (7.32-7.43)
--- NOTE | 2018-06-03 08:28 | CT ---
Date of service: 06/02/2018 PROCEDURE: CT HEAD WITHOUT CONTRAST. HISTORY: AMS COMPARISON: 10/07/2017 TECHNIQUE: Axial computed tomography images were obtained through the head/brain without intravenous contrast. Radiation dose: Total exam DLP = 1145.49 mGy-cm. This CT exam was performed using one or more of the following dose reduction techniques: Automated exposure control, adjustment of the mA and/or kV according to patient size, and/or use of iterative reconstruction technique. FINDINGS: HEMORRHAGE: No intracranial hemorrhage. BRAIN: No mass effect or edema. Mild diffuse atrophy. Mild chronic periventricular white matter ischemic change. VENTRICLES: Mild ventricular dilatation proportionate to the degree of surrounding parenchymal atrophy. CALVARIUM: Unremarkable. PARANASAL SINUSES: Unremarkable as visualized. No significant inflammatory changes. MASTOID AIR CELLS: Unremarkable as visualized. No inflammatory changes. OTHER FINDINGS: None. IMPRESSION: Age related involutional change. No intracranial mass, hemorrhage or evidence of acute infarct. The preliminary findings for this examination were reported by [facility] at 9:36 p.m. on 06/02/2018. There is concurrence of this report with the preliminary findings.
--- NOTE | 2018-06-03 09:06 | RAD ---
Chest x-ray single frontal view HISTORY: Change in mental status. COMPARISON: 01/28/2018 Findings: Hyperinflation suggestive for COPD and or emphysematous changes. Biapical pleural thickening. Heart size within normal limits. No focal infiltrate or effusion. Impression: Hyperinflation suggestive for COPD and or emphysematous changes.
[2018-06-03] MEDS ORDERED: Dextrose 5%/0.45% NS 1,000 ML IV SCH (10:15)
--- NOTE | 2018-06-03 10:22 | CP.PCM.HP ---
<Giovanna Payne - Last Filed: 06/03/18 12:51> History of Present Illness - History of Present Illness History of Present Illness: CC: called 911 for 's worsening agitation HPI: Patient is a 62 y/o M with PMHx of dementia, TBI (2006), HTN, and Hypernatremia who was brought in by ambulance for increasing agitation. Patient has had presentations similar to this in the past. Patient is nonverbal for the past 3 years and incontinent of urine and bowels. Patient's called who explained she was overwhelmed and needed a break because the patient hadn't been sleeping for 3 days and was more agitated. The says patient currently is only on Quetiapine 50mg po HS and Depakote 125mg po BID. Patient is completely dependent on for his care. Patient seen at bedside and resting comfortably. I awoke patient who was trying to move away from the physical exam. Patient was in no acute distress. PMD: none All: NKDA PMHx: dementia, TBI (2007), HTN, and Hypernatremia PsurgHx: hernia repair Famhx: unknown Social: former smoker, no drug or alcohol use Meds: Depakote 125mg po BID, Quetiapine 50mg po HS Present on Admission - Present on Admission Any Indicators Present on Admission: No History of DVT/PE: No History of Uncontrolled Diabetes: No Urinary Catheter: No Decubitus Ulcer Present: No Review of Systems - Review of Systems Systems not reviewed;Unavailable: Dementia Review of Systems: non verbal Past Patient History - Past Medical History & Family History Past Medical History?: Yes - Past Social History Smoking Status: Former Smoker - CARDIAC Hx Cardiac Disorders: Yes (medical records) Hx Hypertension: Yes - PULMONARY Hx Respiratory Disorders: Yes Hx Chronic Obstructive Pulmonary Disease (COPD): Yes - NEUROLOGICAL Hx Neurological Disorder: Yes Hx Dementia: Yes - HEENT Hx HEENT Problems: No - RENAL Hx Chronic Kidney Disease: Yes - ENDOCRINE/METABOLIC Hx Endocrine Disorders: No - HEMATOLOGICAL/ONCOLOGICAL Hx Blood Disorders: No - INTEGUMENTARY Hx Dermatological Problems: No - MUSCULOSKELETAL/RHEUMATOLOGICAL Hx Falls: (unknown) - GASTROINTESTINAL Hx Gastrointestinal Disorders: Yes Hx Constipation: Yes - GENITOURINARY/GYNECOLOGICAL Hx Genitourinary Disorders: Yes Hx Incontinence: Yes - PSYCHIATRIC Hx Substance Use: No - SURGICAL HISTORY Hx Surgeries: Yes Hx Herniorrhaphy: Yes - ANESTHESIA Hx Anesthesia: Yes Hx Anesthesia Reactions: No Hx Malignant Hyperthermia: No Meds Allergies/Adverse Reactions: Allergies Allergy/AdvReac Type Severity Reaction Status Date / Time No Known Allergies Allergy Verified 01/25/18 18:09 Physical Exam - Constitutional Appears: Non-toxic, No Acute Distress, Older Than Stated Age, Cachectic - Head Exam Head Exam: ATRAUMATIC, NORMAL INSPECTION, NORMOCEPHALIC - Eye Exam Eye Exam: EOMI, Normal appearance - ENT Exam ENT Exam: Mucous Membranes Moist - Neck Exam Neck exam: Positive for: Normal Inspection - Respiratory Exam Respiratory Exam: Clear to Auscultation Bilateral, NORMAL BREATHING PATTERN - Cardiovascular Exam Cardiovascular Exam: REGULAR RHYTHM, RRR, +S1, +S2 - GI/Abdominal Exam GI & Abdominal Exam: Normal Bowel Sounds, Soft. absent: Tenderness - Extremities Exam Extremities exam: Positive for: normal inspection. Negative for: pedal edema, tenderness - Neurological Exam Neurological exam: Alert - Skin Skin Exam: Intact, Normal Color, Warm Results - Vital Signs Recent Vital Signs: Last Vital Signs Temp 98.0 F 06/03/18 07:41 Pulse 56 L 06/03/18 07:41 Resp 20 06/03/18 07:41 BP 139/79 06/03/18 07:41 Pulse Ox 100 06/03/18 07:41 - Labs Result Diagrams: 06/02/18 20:24 06/02/18 20:24 Labs: Laboratory Results - last 24 hr 06/02/18 06/02/18 06/02/18 20:20 20:24 20:24 WBC 6.0 RBC 4.50 Hgb 13.2 Hct 39.0 MCV 86.7 MCH 29.3 MCHC 33.8 RDW 15.6 H Plt Count 139 MPV 9.5 Neut % (Auto) 75.9 H Lymph % (Auto) 16.9 L [place] % (Auto) 6.5 Eos % (Auto) 0.3 Baso % (Auto) 0.4 Neut # (Auto) 4.5 Lymph # (Auto) 1.0 [place] # (Auto) 0.4 Eos # (Auto) 0.0 Baso # (Auto) 0.0 Puncture Site Rbrachial pCO2 38 pO2 100 HCO3 21.7 ABG pH 7.35 ABG Total CO2 22.2 ABG O2 Saturation 98.7 H ABG Base Excess -4.2 L Dinesh Test Neg ABG Potassium 3.1 L VBG pH VBG pCO2 VBG HCO3 VBG Total CO2 VBG O2 Sat (Calc) VBG Base Excess VBG Potassium A-a O2 Difference 2.0 Respiratory Index 0 Sodium 152.0 H Chloride 116.0 H Glucose 125 H Lactate 7.5 H* FiO2 21.0 Crit Value Called To Dr. grossman Crit Value Called By Katina hernandes rcp Crit Value Read Back Y Blood Gas Notified Time 2027 Potassium Carbon Dioxide Anion Gap BUN Creatinine Est GFR ( Amer) Est GFR (Non-Af Amer) Random Glucose Calcium Total Bilirubin AST ALT Alkaline Phosphatase Ammonia Total Protein Albumin Globulin Albumin/Globulin Ratio Lipase Arterial Blood Potassium 3.1 L Venous Blood Potassium Urine Color Yellow Urine Clarity Clear Urine pH 5.0 Ur Specific [place] 1.016 Urine Protein Negative Urine Glucose (UA) Normal Urine Ketones Negative Urine Blood 1+ H Urine Nitrate Negative Urine Bilirubin Negative Urine Urobilinogen Normal Ur Leukocyte Esterase Neg Urine WBC (Auto) 1 Urine RBC (Auto) 10 H Urine Bacteria Rare Hyaline Casts 0-2 06/02/18 06/02/18 06/03/18 20:24 20:24 04:50 WBC RBC Hgb Hct MCV MCH MCHC RDW Plt Count MPV Neut % (Auto) Lymph % (Auto) [place] % (Auto) Eos % (Auto) Baso % (Auto) Neut # (Auto) Lymph # (Auto) [place] # (Auto) Eos # (Auto) Baso # (Auto) Puncture Site pCO2 pO2 17 L HCO3 ABG pH ABG Total CO2 ABG O2 Saturation ABG Base Excess Dinesh Test ABG Potassium VBG pH 7.36 VBG pCO2 58 VBG HCO3 27.2 VBG Total CO2 34.6 H VBG O2 Sat (Calc) 24.9 L VBG Base Excess 5.6 H VBG Potassium 3.2 L A-a O2 Difference Respiratory Index Sodium 154 H 149.0 H Chloride 112 H 116.0 H Glucose 68 L Lactate 1.7 FiO2 Crit Value Called To Crit Value Called By Crit Value Read Back Blood Gas Notified Time Potassium 3.8 Carbon Dioxide 22 Anion Gap 24 H BUN 24 H Creatinine 0.9 Est GFR ( Amer) > 60 Est GFR (Non-Af Amer) > 60 Random Glucose 127 H Calcium 9.6 Total Bilirubin 0.7 AST 18 ALT 10 L D Alkaline Phosphatase 62 Ammonia 11 Total Protein 8.3 Albumin 4.5 Globulin 3.8 Albumin/Globulin Ratio 1.2 Lipase 136 Arterial Blood Potassium Venous Blood Potassium 3.2 L Urine Color Urine Clarity Urine pH Ur Specific [place] Urine Protein Urine Glucose (UA) Urine Ketones Urine Blood Urine Nitrate Urine Bilirubin Urine Urobilinogen Ur Leukocyte Esterase Urine WBC (Auto) Urine RBC (Auto) Urine Bacteria Hyaline Casts Assessment & Plan - Assessment and Plan (Free Text) Assessment: Severe Dementia non verbal at baseline [facility] altered diet with thin liquids 1:1 f/u valproic acid level then restart home med: Depakote 125mg po BID Seroquel 50mg po HS Ativan .5mg ivp q6h prn for agitation Hypernatremia Na+ 154 on admission D5 1/2 NS at 75cc/hr switched to D5W at 70cc /hr as per nephro bmp q6h consult Dr. Santos, nephro, help appreciated -f/u urine K, urine Na, urine and serum osmolality, serum RECHECKER New Onset A Fib A fib seen on EKG repeat EKG place patient on tele consult cardio, Dr. Mar, help appreciated f/u echo f/u TSH, free T4, JIM x 3 ASA 81mg po daily Hematuria 1+ blood on U/A f/u urine culture f/u renal u/s Rocephin 1 gm daily Prophylaxis SCDs f/u case management for possible retirement placement PT/ OT discussed with Dr. Barraza : Brent Morales [phone] <Kimi Barraza V - Last Filed: 06/03/18 23:49> Results - Vital Signs Recent Vital Signs: Last Vital Signs Temp 97.7 F 06/03/18 23:00 Pulse 80 06/03/18 23:00 Resp 20 06/03/18 23:00 BP 115/70 06/03/18 23:00 Pulse Ox 100 06/03/18 23:00 - Labs Result Diagrams: 06/03/18 14:14 06/03/18 14:14 Labs: Laboratory Results - last 24 hr 06/03/18 06/03/18 06/03/18 04:50 14:14 14:14 WBC 7.4 RBC 4.49 Hgb 12.9 Hct 38.3 MCV 85.3 MCH 28.8 MCHC 33.8 RDW 15.0 H Plt Count 131 MPV 9.3 Neut % (Auto) 79.6 H Lymph % (Auto) 12.9 L [place] % (Auto) 6.3 Eos % (Auto) 0.7 Baso % (Auto) 0.5 Neut # (Auto) 5.9 Lymph # (Auto) 1.0 [place] # (Auto) 0.5 Eos # (Auto) 0.1 Baso # (Auto) 0.0 pO2 17 L VBG pH 7.36 VBG pCO2 58 VBG HCO3 27.2 VBG Total CO2 34.6 H VBG O2 Sat (Calc) 24.9 L VBG Base Excess 5.6 H VBG Potassium 3.2 L Sodium 149.0 H 147 Chloride 116.0 H 107 Glucose 68 L Lactate 1.7 Potassium 3.4 L Carbon Dioxide 30 Anion Gap 14 BUN 18 Creatinine 0.6 L Est GFR ( Amer) > 60 Est GFR (Non-Af Amer) > 60 Random Glucose 152 H Serum Osmolality Calcium 8.7 Phosphorus 2.5 Magnesium 1.9 Total Bilirubin 0.8 AST 22 ALT 15 L D Alkaline Phosphatase 61 Total Creatine Kinase 134 CK-MB (Mass) 2.02 Troponin I < 0.0120 Total Protein 7.3 Albumin 3.8 Globulin 3.5 Albumin/Globulin Ratio 1.1 Free T4 TSH 3rd Generation 0.44 L Venous Blood Potassium 3.2 L Urine Osmolality Ur Random Sodium Ur Random Potassium Valproic Acid 06/03/18 06/03/18 06/03/18 14:14 14:14 14:14 WBC RBC Hgb Hct MCV MCH MCHC RDW Plt Count MPV Neut % (Auto) Lymph % (Auto) [place] % (Auto) Eos % (Auto) Baso % (Auto) Neut # (Auto) Lymph # (Auto) [place] # (Auto) Eos # (Auto) Baso # (Auto) pO2 VBG pH VBG pCO2 VBG HCO3 VBG Total CO2 VBG O2 Sat (Calc) VBG Base Excess VBG Potassium Sodium Chloride Glucose Lactate Potassium Carbon Dioxide Anion Gap BUN Creatinine Est GFR ( Amer) Est GFR (Non-Af Amer) Random Glucose Serum Osmolality 315 H Calcium Phosphorus Magnesium Total Bilirubin AST ALT Alkaline Phosphatase Total Creatine Kinase 136 CK-MB (Mass) Troponin I Total Protein Albumin Globulin Albumin/Globulin Ratio Free T4 0.95 TSH 3rd Generation Venous Blood Potassium Urine Osmolality Ur Random Sodium Ur Random Potassium Valproic Acid < 10.0 L 06/03/18 06/03/18 22:26 22:26 WBC RBC Hgb Hct MCV MCH MCHC RDW Plt Count MPV Neut % (Auto) Lymph % (Auto) [place] % (Auto) Eos % (Auto) Baso % (Auto) Neut # (Auto) Lymph # (Auto) [place] # (Auto) Eos # (Auto) Baso # (Auto) pO2 VBG pH VBG pCO2 VBG HCO3 VBG Total CO2 VBG O2 Sat (Calc) VBG Base Excess VBG Potassium Sodium Chloride Glucose Lactate Potassium Carbon Dioxide Anion Gap BUN Creatinine Est GFR ( Amer) Est GFR (Non-Af Amer) Random Glucose Serum Osmolality Calcium Phosphorus Magnesium Total Bilirubin AST ALT Alkaline Phosphatase Total Creatine Kinase CK-MB (Mass) Troponin I Total Protein Albumin Globulin Albumin/Globulin Ratio Free T4 TSH 3rd Generation Venous Blood Potassium Urine Osmolality 600 Ur Random Sodium 171 Ur Random Potassium 32.1 Valproic Acid Attending/Attestation - Attestation I have personally seen and examined this patient.: Yes I have fully participated in the care of the patient.: Yes I have reviewed all pertinent clinical information: Yes Notes (Text): Patient seen, examined, case discussed with medical sociologist. Hospitalist service covering Dr. Hager who is away until June 04. Patient is a 62-year-old male with prior history including traumatic brain injury, aggression, dementia, poor oral intake and dehydration causing hypernatremia cons and following 's plea given his repeated aggression and unable to take care of him at home. Patient has had multiple hospitalizations in the past for similar reasons. Patient is familiar to the hospitalist service. Patient seen at bedside this morning with the CPAP he she is rather calm "usually grunting which he is. Noted patient is currently keeping Seroquel and also noted to have restarted Depakote unclear who of who advised to resume Depakote. Patient has prior CVA in the past been on Aricept and Namenda unclear why this is not restarted. Noted on exam patient had sodium 152 on repeat VBG about 149. We have consult nephrology and switched to D5 water 70 mL per hour and no monitor BMP to monitor sodium. Also noted on EKG on this admission patient does have atrial fibrillation which is a change from his prior EKGs. We have consult to cardiology. He is ordered for echocardiogram, thyroid studies started on aspirin. Unable to rate control patient since he is bradycardic around 50s heart rate and borderline normal blood pressure. Also noted patient has hematuria on UA we will check urine culture as well as renal bladder ultrasound to rule out mass patient started on prophylactic antibiotic treatment. Assessment/plan Severe Dementia History traumatic brain injury * non verbal at baseline--> series a grunting, mobile, needs one-to-one attention * [facility] altered diet with thin liquids * 1:1 * f/u valproic acid level then restart home med: Depakote 125mg po BID * Seroquel 50mg po HS * Ativan .5mg ivp q6h prn for agitation Hypernatremia * Attributed to poor poor oral intake and dehydration * Na+ 154 on admission * D5 1/2 NS at 75cc/hr switched to D5W at 70cc /hr as per nephro * bmp q6h * consult Dr. Santos, nephro, help appreciated * f/u urine K, urine Na, urine and serum osmolality, serum RECHECKER New Onset A Fib * A fib seen on EKG which is new * repeat EKG * place patient on tele * consult cardio, Dr. Mar, help appreciated * f/u echo * f/u TSH, free T4, JIM x 3 * ASA 81mg po daily Hematuria * 1+ blood on U/A * f/u urine culture * f/u renal u/s * Rocephin 1 gm daily Prophylaxis * SCDs * f/u case management for possible retirement placement * PT/ OT * One-to-one
--- NOTE | 2018-06-03 11:23 | CP.PCM.CON ---
<Sona Villasenor - Last Filed: 06/03/18 14:10> History of Present Illness - History of Present Illness History of Present Illness: Sona Villasenor DO, PGY-2: Nephrology Consult Note for Dr. Santos 62 year old male with a past medical history significant for dementia, non- verbal for past three years, chronic hypernatramia, and questionable new-onset atrial fibrillation who presents with 3 days of insomnia and agitation. He was brought in via EMS after his called 911. The patient is clearly demented and cannot provide any history. Chart review indicates patient has been admitted for similar reasons in the past with noted hyponatremia. Otherwise, 12 point review of system is limited except as per HPI. PMD: none All: NKA PMH: dementia, TBI (2007), HTN, and Hypernatremia PSH: hernia repair Family History: unknown Social: former smoker, no drug or alcohol use Meds: Depakote 125mg po BID, Quetiapine 50mg po HS Review of Systems - Review of Systems All systems: reviewed and no additional remarkable complaints except (as per HPI ) Past Patient History - Past Medical History & Family History Past Medical History?: Yes - Past Social History Smoking Status: Former Smoker - CARDIAC Hx Cardiac Disorders: Yes (medical records) Hx Hypertension: Yes - PULMONARY Hx Respiratory Disorders: Yes Hx Chronic Obstructive Pulmonary Disease (COPD): Yes - NEUROLOGICAL Hx Neurological Disorder: Yes Hx Dementia: Yes - HEENT Hx HEENT Problems: No - RENAL Hx Chronic Kidney Disease: Yes - ENDOCRINE/METABOLIC Hx Endocrine Disorders: No - HEMATOLOGICAL/ONCOLOGICAL Hx Blood Disorders: No - INTEGUMENTARY Hx Dermatological Problems: No - MUSCULOSKELETAL/RHEUMATOLOGICAL Hx Falls: (unknown) - GASTROINTESTINAL Hx Gastrointestinal Disorders: Yes Hx Constipation: Yes - GENITOURINARY/GYNECOLOGICAL Hx Genitourinary Disorders: Yes Hx Incontinence: Yes - PSYCHIATRIC Hx Substance Use: No - SURGICAL HISTORY Hx Surgeries: Yes Hx Herniorrhaphy: Yes - ANESTHESIA Hx Anesthesia: Yes Hx Anesthesia Reactions: No Hx Malignant Hyperthermia: No Meds Allergies/Adverse Reactions: Allergies Allergy/AdvReac Type Severity Reaction Status Date / Time No Known Allergies Allergy Verified 01/25/18 18:09 - Medications Medications: Current Medications Aspirin (Aspirin Chewable) 81 mg PO DAILY TETE Dextrose/Sodium Chloride (Dextrose 5%/0.45% Ns 1000 Ml) 1,000 mls @ 75 mls/hr IV .[id number] TETE Ceftriaxone Sodium 1 gm/ (Sodium Chloride) 100 mls @ 100 mls/hr IVPB DAILY TETE PRN Reason: Protocol Quetiapine Fumarate (Seroquel) 50 mg PO HS TETE Physical Exam - Constitutional Appears: Non-toxic, No Acute Distress, Confused, Cachectic - Head Exam Head Exam: ATRAUMATIC, NORMOCEPHALIC - Eye Exam Eye Exam: EOMI, Normal appearance - ENT Exam ENT Exam: Mucous Membranes Dry - Neck Exam Neck exam: Positive for: Normal Inspection - Respiratory Exam Respiratory Exam: Clear to Auscultation Bilateral, NORMAL BREATHING PATTERN. absent: Accessory Muscle Use - Cardiovascular Exam Cardiovascular Exam: RRR, +S1, +S2 - GI/Abdominal Exam GI & Abdominal Exam: Normal Bowel Sounds, Soft. absent: Guarding - Exam Exam: NORMAL INSPECTION - Extremities Exam Extremities exam: Positive for: normal inspection. Negative for: calf tenderness - Neurological Exam Neurological exam: Alert - Psychiatric Exam Psychiatric exam: Agitated - Skin Skin Exam: Dry, Intact, Normal Color, Warm Results - Vital Signs Recent Vital Signs: Last Vital Signs Temp 98.0 F 06/03/18 07:41 Pulse 56 L 06/03/18 07:41 Resp 20 06/03/18 07:41 BP 139/79 06/03/18 07:41 Pulse Ox 100 06/03/18 07:41 - Labs Result Diagrams: 06/02/18 20:24 06/02/18 20:24 Labs: Laboratory Results - last 24 hr 06/02/18 06/02/18 06/02/18 20:20 20:24 20:24 WBC 6.0 RBC 4.50 Hgb 13.2 Hct 39.0 MCV 86.7 MCH 29.3 MCHC 33.8 RDW 15.6 H Plt Count 139 MPV 9.5 Neut % (Auto) 75.9 H Lymph % (Auto) 16.9 L Stone % (Auto) 6.5 Eos % (Auto) 0.3 Baso % (Auto) 0.4 Neut # (Auto) 4.5 Lymph # (Auto) 1.0 Stone # (Auto) 0.4 Eos # (Auto) 0.0 Baso # (Auto) 0.0 Puncture Site Rbrachial pCO2 38 pO2 100 HCO3 21.7 ABG pH 7.35 ABG Total CO2 22.2 ABG O2 Saturation 98.7 H ABG Base Excess -4.2 L Dinesh Test Neg ABG Potassium 3.1 L VBG pH VBG pCO2 VBG HCO3 VBG Total CO2 VBG O2 Sat (Calc) VBG Base Excess VBG Potassium A-a O2 Difference 2.0 Respiratory Index 0 Sodium 152.0 H Chloride 116.0 H Glucose 125 H Lactate 7.5 H* FiO2 21.0 Crit Value Called To Dr. grossman Crit Value Called By Katina hernandes rcp Crit Value Read Back Y Blood Gas Notified Time 2027 Potassium Carbon Dioxide Anion Gap BUN Creatinine Est GFR ( Amer) Est GFR (Non-Af Amer) Random Glucose Calcium Total Bilirubin AST ALT Alkaline Phosphatase Ammonia Total Protein Albumin Globulin Albumin/Globulin Ratio Lipase Arterial Blood Potassium 3.1 L Venous Blood Potassium Urine Color Yellow Urine Clarity Clear Urine pH 5.0 Ur Specific [place] 1.016 Urine Protein Negative Urine Glucose (UA) Normal Urine Ketones Negative Urine Blood 1+ H Urine Nitrate Negative Urine Bilirubin Negative Urine Urobilinogen Normal Ur Leukocyte Esterase Neg Urine WBC (Auto) 1 Urine RBC (Auto) 10 H Urine Bacteria Rare Hyaline Casts 0-2 06/02/18 06/02/18 06/03/18 20:24 20:24 04:50 WBC RBC Hgb Hct MCV MCH MCHC RDW Plt Count MPV Neut % (Auto) Lymph % (Auto) Stone % (Auto) Eos % (Auto) Baso % (Auto) Neut # (Auto) Lymph # (Auto) Stone # (Auto) Eos # (Auto) Baso # (Auto) Puncture Site pCO2 pO2 17 L HCO3 ABG pH ABG Total CO2 ABG O2 Saturation ABG Base Excess Dinesh Test ABG Potassium VBG pH 7.36 VBG pCO2 58 VBG HCO3 27.2 VBG Total CO2 34.6 H VBG O2 Sat (Calc) 24.9 L VBG Base Excess 5.6 H VBG Potassium 3.2 L A-a O2 Difference Respiratory Index Sodium 154 H 149.0 H Chloride 112 H 116.0 H Glucose 68 L Lactate 1.7 FiO2 Crit Value Called To Crit Value Called By Crit Value Read Back Blood Gas Notified Time Potassium 3.8 Carbon Dioxide 22 Anion Gap 24 H BUN 24 H Creatinine 0.9 Est GFR ( Amer) > 60 Est GFR (Non-Af Amer) > 60 Random Glucose 127 H Calcium 9.6 Total Bilirubin 0.7 AST 18 ALT 10 L D Alkaline Phosphatase 62 Ammonia 11 Total Protein 8.3 Albumin 4.5 Globulin 3.8 Albumin/Globulin Ratio 1.2 Lipase 136 Arterial Blood Potassium Venous Blood Potassium 3.2 L Urine Color Urine Clarity Urine pH Ur Specific [place] Urine Protein Urine Glucose (UA) Urine Ketones Urine Blood Urine Nitrate Urine Bilirubin Urine Urobilinogen Ur Leukocyte Esterase Urine WBC (Auto) Urine RBC (Auto) Urine Bacteria Hyaline Casts Assessment & Plan - Assessment and Plan (Free Text) Assessment: 62 year old male with dementia who presents with three days of insomnia and worsening agitation and found to have a serum Na of 154. Plan: 1) Hypernatremia, chronic without evidence of ongoing losses - urine K, urine Na, urine and serum osmolality, serum [employer] - Recommend discontinuing D5 with 1/2 NS and starting D5W at 70 ml/hr with BMP q4-6 with goal to lower serum Na no more than 10 mEq in a 24 hour period - F/U urine culture and sensitivity - CT head shows no acute changes/infarct - Strict I/O Case was reviewed and discussed with attending physician, Dr. Santos - Date & Time Date: 06/03/18 Time: 11:53 <Israel Santos - Last Filed: 06/04/18 02:16> Meds - Medications Medications: Current Medications Aspirin (Aspirin Chewable) 81 mg PO DAILY [facility] Last Admin: 06/03/18 11:49 Dose: 81 mg Enoxaparin Sodium (Lovenox) 60 mg SC Q12 [facility] Ceftriaxone Sodium 1 gm/ (Sodium Chloride) 100 mls @ 100 mls/hr IVPB DAILY [facility] PRN Reason: Protocol Last Admin: 06/03/18 11:50 Dose: 100 mls/hr Dextrose/Sodium Chloride (Dextrose 5%/0.45% Ns 1000 Ml) 1,000 mls @ 70 mls/hr IV .[id number] [facility] Last Admin: 06/04/18 01:06 Dose: 70 mls/hr Lorazepam (Ativan) 0.5 mg IVP Q6H PRN PRN Reason: Anxiety Last Admin: 06/03/18 13:24 Dose: 0.5 mg Quetiapine Fumarate (Seroquel) 50 mg PO HS [facility] Last Admin: 06/03/18 21:55 Dose: 50 mg Saccharomyces Boulardii (Florastor) 250 mg PO BID TETE Results - Vital Signs Recent Vital Signs: Last Vital Signs Temp 97.8 F 06/03/18 23:30 Pulse 64 06/03/18 23:30 Resp 20 06/03/18 23:30 BP 115/70 06/03/18 23:30 Pulse Ox 100 06/03/18 23:30 - Labs Result Diagrams: 06/03/18 14:14 06/04/18 00:27 Labs: Laboratory Results - last 24 hr 06/03/18 06/03/18 06/03/18 04:50 14:14 14:14 WBC 7.4 RBC 4.49 Hgb 12.9 Hct 38.3 MCV 85.3 MCH 28.8 MCHC 33.8 RDW 15.0 H Plt Count 131 MPV 9.3 Neut % (Auto) 79.6 H Lymph % (Auto) 12.9 L Stone % (Auto) 6.3 Eos % (Auto) 0.7 Baso % (Auto) 0.5 Neut # (Auto) 5.9 Lymph # (Auto) 1.0 Stone # (Auto) 0.5 Eos # (Auto) 0.1 Baso # (Auto) 0.0 pO2 17 L VBG pH 7.36 VBG pCO2 58 VBG HCO3 27.2 VBG Total CO2 34.6 H VBG O2 Sat (Calc) 24.9 L VBG Base Excess 5.6 H VBG Potassium 3.2 L Sodium 149.0 H 147 Chloride 116.0 H 107 Glucose 68 L Lactate 1.7 Potassium 3.4 L Carbon Dioxide 30 Anion Gap 14 BUN 18 Creatinine 0.6 L Est GFR ( Amer) > 60 Est GFR (Non-Af Amer) > 60 Random Glucose 152 H Serum Osmolality Calcium 8.7 Phosphorus 2.5 Magnesium 1.9 Total Bilirubin 0.8 AST 22 ALT 15 L D Alkaline Phosphatase 61 Total Creatine Kinase 134 CK-MB (Mass) 2.02 Troponin I < 0.0120 Total Protein 7.3 Albumin 3.8 Globulin 3.5 Albumin/Globulin Ratio 1.1 Free T4 TSH 3rd Generation 0.44 L Venous Blood Potassium 3.2 L Urine Osmolality Ur Random Sodium Ur Random Potassium Valproic Acid 06/03/18 06/03/18 06/03/18 14:14 14:14 14:14 WBC RBC Hgb Hct MCV MCH MCHC RDW Plt Count MPV Neut % (Auto) Lymph % (Auto) Stone % (Auto) Eos % (Auto) Baso % (Auto) Neut # (Auto) Lymph # (Auto) Stone # (Auto) Eos # (Auto) Baso # (Auto) pO2 VBG pH VBG pCO2 VBG HCO3 VBG Total CO2 VBG O2 Sat (Calc) VBG Base Excess VBG Potassium Sodium Chloride Glucose Lactate Potassium Carbon Dioxide Anion Gap BUN Creatinine Est GFR ( Amer) Est GFR (Non-Af Amer) Random Glucose Serum Osmolality 315 H Calcium Phosphorus Magnesium Total Bilirubin AST ALT Alkaline Phosphatase Total Creatine Kinase 136 CK-MB (Mass) Troponin I Total Protein Albumin Globulin Albumin/Globulin Ratio Free T4 0.95 TSH 3rd Generation Venous Blood Potassium Urine Osmolality Ur Random Sodium Ur Random Potassium Valproic Acid < 10.0 L 06/03/18 06/03/18 06/04/18 22:26 22:26 00:27 WBC RBC Hgb Hct MCV MCH MCHC RDW Plt Count MPV Neut % (Auto) Lymph % (Auto) Stone % (Auto) Eos % (Auto) Baso % (Auto) Neut # (Auto) Lymph # (Auto) Stone # (Auto) Eos # (Auto) Baso # (Auto) pO2 VBG pH VBG pCO2 VBG HCO3 VBG Total CO2 VBG O2 Sat (Calc) VBG Base Excess VBG Potassium Sodium 146 Chloride 107 Glucose Lactate Potassium 3.7 Carbon Dioxide 29 Anion Gap 14 BUN 19 Creatinine 0.6 L Est GFR ( Amer) > 60 Est GFR (Non-Af Amer) > 60 Random Glucose 80 Serum Osmolality Calcium 8.5 L Phosphorus Magnesium Total Bilirubin AST ALT Alkaline Phosphatase Total Creatine Kinase 128 CK-MB (Mass) 2.55 Troponin I < 0.0120 Total Protein Albumin Globulin Albumin/Globulin Ratio Free T4 TSH 3rd Generation Venous Blood Potassium Urine Osmolality 600 Ur Random Sodium 171 Ur Random Potassium 32.1 Valproic Acid Attending/Attestation - Attestation I have personally seen and examined this patient.: Yes I have fully participated in the care of the patient.: Yes I have reviewed all pertinent clinical information: Yes Notes (Text): Patient seen and examined; I agree with the resident's note as above with the following additions/edits: 62 yo M w/ dementia s/p TBI, with recurrent admissions for agitation, again admitted for the same; nephrology being consulted for hypernatremia; Labs indicate patient may have been volume depleted in addition to hypernatremia on presentation, possibly due to UTI although UA only showing hematuria; appropriately started on NS with significant improvement in hypernatremia; started also on antibiotics, no longer agitated on encounter this afternoon; tolerating PO diet including liquids when fed; Microscopic hematuria noted, present on last admission in January 2018 but not present previously; no evidence of kidney stones on renal US; no overt albuminuria to suggest a glomerular process; more likely due to lower urinary tract irritation (from UTI?); -Agree with 1/2NS at 70 cc/hr; goal is to correct half of free water deficit in the first 24 hrs (~4aL overall deficit); increased PO intake will help as well; -Obtain urine cytology for workup of hematuria; will check random urine for total protein/creatinine as well;
[2018-06-03 14:24] LABS: BASO % 0.5 % (0.0-2.0); EOS # 0.1 K/uL (0.0-0.7); EOS % 0.7 % (0.0-4.0); HEMOGLOBIN 12.9 g/dL (12.0-18.0); LYMPH % 12.9 % (20.0-40.0); MEAN CELL VOLUME 85.3 fL (80.0-94.0); MEAN CORPUSCULAR HEMOGLOBIN 28.8 pg (27.0-31.0); MEAN CORPUSCULAR HGB CONC 33.8 g/dL (33.0-37.0); MEAN PLATELET VOLUME 9.3 fL (7.2-11.7); MONO # 0.5 K/uL (0.0-0.8); MONO % 6.3 % (0.0-10.0); NEUT # 5.9 K/uL (1.8-7.0); NEUT % 79.6 % (50.0-75.0); NRBC % 0.1 % (0.0-2.0); RBC 4.49 Mil/uL (4.40-5.90); WHITE BLOOD COUNT 7.4 K/uL (4.8-10.8)
[2018-06-03 14:46] LABS: ALB/GLOB RATIO 1.1 (1.0-2.1); ALBUMIN 3.8 g/dL (3.5-5.0); ALT/SGPT 15 U/L (21-72); AST/SGOT 22 U/L (17-59); BLOOD UREA NITROGEN 18 mg/dL (9-20); CALCIUM 8.7 mg/dl (8.6-10.4); GFR NON-AFRICAN AMERICAN > 60
[2018-06-03 14:54] LABS: CK-MB 2.02 ng/mL (0.0-3.38)
[2018-06-03 15:04] LABS: FREE T4 0.95 ng/dL (0.78-2.19)
--- NOTE | 2018-06-03 15:48 | US ---
Date of service: 06/03/2018 PROCEDURE: Ultrasound of the Kidneys HISTORY: hematuria COMPARISON: None available. TECHNIQUE: Sonogram of the kidneys. FINDINGS: RIGHT KIDNEY: Measures: 3.9 x 10.5 cm. Increased echogenicity compatible with medical renal disease. No stone, solid mass lesion or hydronephrosis visualized. LEFT KIDNEY: Measures: 4.9 x 11.3 cm. Increased echogenicity compatible with medical renal disease. No stone, solid mass lesion or hydronephrosis visualized. Incidental simple cyst midpole region 1.7 x 1.6 cm OTHER FINDINGS: Although incompletely visualized in the os characterize the bladder wall is thickened. Dedicated bladder ultrasound advised. IMPRESSION: Findings consistent with medical renal disease. No evidence of obstructive uropathy, mass or other pathologic process.
[2018-06-03] MEDS: Dextrose 5%/0.45% NS 1,000 ML IV SCH (17:26)
--- NOTE | 2018-06-03 18:26 | CP.PCM.CON ---
History of Present Illness - History of Present Illness History of Present Illness: I was asked to evaluate patient by Dr Gagnon. Patient is a 62 year old male with traumatic brain injury who was brought in due to agitation. EKG in the ER revealed afib. he had a subsequwnt EKG revealing NSR. He is nonverbal, appears comfortable. Review of Systems - Review of Systems Systems not reviewed;Unavailable: Dementia Past Patient History - Past Medical History & Family History Past Medical History?: Yes - Past Social History Smoking Status: Former Smoker - CARDIAC Hx Cardiac Disorders: Yes (medical records) Hx Hypertension: Yes - PULMONARY Hx Respiratory Disorders: Yes Hx Chronic Obstructive Pulmonary Disease (COPD): Yes - NEUROLOGICAL Hx Neurological Disorder: Yes Hx Dementia: Yes - HEENT Hx HEENT Problems: No - RENAL Hx Chronic Kidney Disease: Yes - ENDOCRINE/METABOLIC Hx Endocrine Disorders: No - HEMATOLOGICAL/ONCOLOGICAL Hx Blood Disorders: No - INTEGUMENTARY Hx Dermatological Problems: No - MUSCULOSKELETAL/RHEUMATOLOGICAL Hx Falls: (unknown) - GASTROINTESTINAL Hx Gastrointestinal Disorders: Yes Hx Constipation: Yes - GENITOURINARY/GYNECOLOGICAL Hx Genitourinary Disorders: Yes Hx Incontinence: Yes - PSYCHIATRIC Hx Substance Use: No - SURGICAL HISTORY Hx Surgeries: Yes Hx Herniorrhaphy: Yes - ANESTHESIA Hx Anesthesia: Yes Hx Anesthesia Reactions: No Hx Malignant Hyperthermia: No Meds Allergies/Adverse Reactions: Allergies Allergy/AdvReac Type Severity Reaction Status Date / Time No Known Allergies Allergy Verified 01/25/18 18:09 - Medications Medications: Current Medications Aspirin (Aspirin Chewable) 81 mg PO DAILY TETE Last Admin: 06/03/18 11:49 Dose: 81 mg Ceftriaxone Sodium 1 gm/ (Sodium Chloride) 100 mls @ 100 mls/hr IVPB DAILY TETE PRN Reason: Protocol Last Admin: 06/03/18 11:50 Dose: 100 mls/hr Dextrose/Sodium Chloride (Dextrose 5%/0.45% Ns 1000 Ml) 1,000 mls @ 70 mls/hr IV .[id number] TETE Lorazepam (Ativan) 0.5 mg IVP Q6H PRN PRN Reason: Anxiety Last Admin: 06/03/18 13:24 Dose: 0.5 mg Quetiapine Fumarate (Seroquel) 50 mg PO HS TETE Physical Exam - Constitutional Appears: Non-toxic - Head Exam Head Exam: NORMAL INSPECTION - Eye Exam Eye Exam: Normal appearance - ENT Exam ENT Exam: Mucous Membranes Moist - Neck Exam Neck exam: Positive for: Full Rom - Respiratory Exam Respiratory Exam: NORMAL BREATHING PATTERN - Cardiovascular Exam Cardiovascular Exam: REGULAR RHYTHM - GI/Abdominal Exam GI & Abdominal Exam: Normal Bowel Sounds - Rectal Exam Rectal Exam: Deferred - Extremities Exam Extremities exam: Positive for: normal inspection - Back Exam Back exam: NORMAL INSPECTION - Skin Skin Exam: Normal Color Results - Vital Signs Recent Vital Signs: Last Vital Signs Temp 97.3 F L 06/03/18 16:00 Pulse 50 L 06/03/18 16:00 Resp 18 06/03/18 16:00 BP 108/75 06/03/18 16:00 Pulse Ox 100 06/03/18 16:00 - Labs Result Diagrams: 06/03/18 14:14 06/03/18 14:14 Labs: Laboratory Results - last 24 hr 06/02/18 06/02/18 06/02/18 20:20 20:24 20:24 WBC 6.0 RBC 4.50 Hgb 13.2 Hct 39.0 MCV 86.7 MCH 29.3 MCHC 33.8 RDW 15.6 H Plt Count 139 MPV 9.5 Neut % (Auto) 75.9 H Lymph % (Auto) 16.9 L [place] % (Auto) 6.5 Eos % (Auto) 0.3 Baso % (Auto) 0.4 Neut # (Auto) 4.5 Lymph # (Auto) 1.0 [place] # (Auto) 0.4 Eos # (Auto) 0.0 Baso # (Auto) 0.0 Puncture Site Rbrachial pCO2 38 pO2 100 HCO3 21.7 ABG pH 7.35 ABG Total CO2 22.2 ABG O2 Saturation 98.7 H ABG Base Excess -4.2 L Dinesh Test Neg ABG Potassium 3.1 L VBG pH VBG pCO2 VBG HCO3 VBG Total CO2 VBG O2 Sat (Calc) VBG Base Excess VBG Potassium A-a O2 Difference 2.0 Respiratory Index 0 Sodium 152.0 H Chloride 116.0 H Glucose 125 H Lactate 7.5 H* FiO2 21.0 Crit Value Called To Dr. grossman Crit Value Called By Katina hernandes rcp Crit Value Read Back Y Blood Gas Notified Time 2027 Potassium Carbon Dioxide Anion Gap BUN Creatinine Est GFR ( Amer) Est GFR (Non-Af Amer) Random Glucose Serum Osmolality Calcium Phosphorus Magnesium Total Bilirubin AST ALT Alkaline Phosphatase Ammonia Total Creatine Kinase CK-MB (Mass) Troponin I Total Protein Albumin Globulin Albumin/Globulin Ratio Lipase Free T4 TSH 3rd Generation Arterial Blood Potassium 3.1 L Venous Blood Potassium Urine Color Yellow Urine Clarity Clear Urine pH 5.0 Ur Specific [place] 1.016 Urine Protein Negative Urine Glucose (UA) Normal Urine Ketones Negative Urine Blood 1+ H Urine Nitrate Negative Urine Bilirubin Negative Urine Urobilinogen Normal Ur Leukocyte Esterase Neg Urine WBC (Auto) 1 Urine RBC (Auto) 10 H Urine Bacteria Rare Hyaline Casts 0-2 Valproic Acid 06/02/18 06/02/18 06/03/18 20:24 20:24 04:50 WBC RBC Hgb Hct MCV MCH MCHC RDW Plt Count MPV Neut % (Auto) Lymph % (Auto) [place] % (Auto) Eos % (Auto) Baso % (Auto) Neut # (Auto) Lymph # (Auto) [place] # (Auto) Eos # (Auto) Baso # (Auto) Puncture Site pCO2 pO2 17 L HCO3 ABG pH ABG Total CO2 ABG O2 Saturation ABG Base Excess Dinesh Test ABG Potassium VBG pH 7.36 VBG pCO2 58 VBG HCO3 27.2 VBG Total CO2 34.6 H VBG O2 Sat (Calc) 24.9 L VBG Base Excess 5.6 H VBG Potassium 3.2 L A-a O2 Difference Respiratory Index Sodium 154 H 149.0 H Chloride 112 H 116.0 H Glucose 68 L Lactate 1.7 FiO2 Crit Value Called To Crit Value Called By Crit Value Read Back Blood Gas Notified Time Potassium 3.8 Carbon Dioxide 22 Anion Gap 24 H BUN 24 H Creatinine 0.9 Est GFR ( Amer) > 60 Est GFR (Non-Af Amer) > 60 Random Glucose 127 H Serum Osmolality Calcium 9.6 Phosphorus Magnesium Total Bilirubin 0.7 AST 18 ALT 10 L D Alkaline Phosphatase 62 Ammonia 11 Total Creatine Kinase CK-MB (Mass) Troponin I Total Protein 8.3 Albumin 4.5 Globulin 3.8 Albumin/Globulin Ratio 1.2 Lipase 136 Free T4 TSH 3rd Generation Arterial Blood Potassium Venous Blood Potassium 3.2 L Urine Color Urine Clarity Urine pH Ur Specific [place] Urine Protein Urine Glucose (UA) Urine Ketones Urine Blood Urine Nitrate Urine Bilirubin Urine Urobilinogen Ur Leukocyte Esterase Urine WBC (Auto) Urine RBC (Auto) Urine Bacteria Hyaline Casts Valproic Acid 06/03/18 06/03/18 06/03/18 14:14 14:14 14:14 WBC 7.4 RBC 4.49 Hgb 12.9 Hct 38.3 MCV 85.3 MCH 28.8 MCHC 33.8 RDW 15.0 H Plt Count 131 MPV 9.3 Neut % (Auto) 79.6 H Lymph % (Auto) 12.9 L [place] % (Auto) 6.3 Eos % (Auto) 0.7 Baso % (Auto) 0.5 Neut # (Auto) 5.9 Lymph # (Auto) 1.0 [place] # (Auto) 0.5 Eos # (Auto) 0.1 Baso # (Auto) 0.0 Puncture Site pCO2 pO2 HCO3 ABG pH ABG Total CO2 ABG O2 Saturation ABG Base Excess Dinesh Test ABG Potassium VBG pH VBG pCO2 VBG HCO3 VBG Total CO2 VBG O2 Sat (Calc) VBG Base Excess VBG Potassium A-a O2 Difference Respiratory Index Sodium 147 Chloride 107 Glucose Lactate FiO2 Crit Value Called To Crit Value Called By Crit Value Read Back Blood Gas Notified Time Potassium 3.4 L Carbon Dioxide 30 Anion Gap 14 BUN 18 Creatinine 0.6 L Est GFR ( Amer) > 60 Est GFR (Non-Af Amer) > 60 Random Glucose 152 H Serum Osmolality Calcium 8.7 Phosphorus 2.5 Magnesium 1.9 Total Bilirubin 0.8 AST 22 ALT 15 L D Alkaline Phosphatase 61 Ammonia Total Creatine Kinase 134 CK-MB (Mass) 2.02 Troponin I < 0.0120 Total Protein 7.3 Albumin 3.8 Globulin 3.5 Albumin/Globulin Ratio 1.1 Lipase Free T4 TSH 3rd Generation 0.44 L Arterial Blood Potassium Venous Blood Potassium Urine Color Urine Clarity Urine pH Ur Specific [place] Urine Protein Urine Glucose (UA) Urine Ketones Urine Blood Urine Nitrate Urine Bilirubin Urine Urobilinogen Ur Leukocyte Esterase Urine WBC (Auto) Urine RBC (Auto) Urine Bacteria Hyaline Casts Valproic Acid < 10.0 L 06/03/18 06/03/18 14:14 14:14 WBC RBC Hgb Hct MCV MCH MCHC RDW Plt Count MPV Neut % (Auto) Lymph % (Auto) [place] % (Auto) Eos % (Auto) Baso % (Auto) Neut # (Auto) Lymph # (Auto) [place] # (Auto) Eos # (Auto) Baso # (Auto) Puncture Site pCO2 pO2 HCO3 ABG pH ABG Total CO2 ABG O2 Saturation ABG Base Excess Dinesh Test ABG Potassium VBG pH VBG pCO2 VBG HCO3 VBG Total CO2 VBG O2 Sat (Calc) VBG Base Excess VBG Potassium A-a O2 Difference Respiratory Index Sodium Chloride Glucose Lactate FiO2 Crit Value Called To Crit Value Called By Crit Value Read Back Blood Gas Notified Time Potassium Carbon Dioxide Anion Gap BUN Creatinine Est GFR ( Amer) Est GFR (Non-Af Amer) Random Glucose Serum Osmolality 315 H Calcium Phosphorus Magnesium Total Bilirubin AST ALT Alkaline Phosphatase Ammonia Total Creatine Kinase 136 CK-MB (Mass) Troponin I Total Protein Albumin Globulin Albumin/Globulin Ratio Lipase Free T4 0.95 TSH 3rd Generation Arterial Blood Potassium Venous Blood Potassium Urine Color Urine Clarity Urine pH Ur Specific [place] Urine Protein Urine Glucose (UA) Urine Ketones Urine Blood Urine Nitrate Urine Bilirubin Urine Urobilinogen Ur Leukocyte Esterase Urine WBC (Auto) Urine RBC (Auto) Urine Bacteria Hyaline Casts Valproic Acid - EKG Data EKG Interpreted by: Myself Assessment & Plan (1) Paroxysmal atrial fibrillation Assessment and Plan: currently in sinus rhythm. recommend lovenox while in the hospital. Patient is not ideal candidate for custodial anticoagulation due to falls risk. Status: Acute
--- NOTE | 2018-06-03 19:13 | CARD ---
APPROVED REPORT Date of service: 06/02/2018 EKG Measurement Heart [id number] <Conclusion> Atrial fibrillation Abnormal ECG
[2018-06-04 00:55] LABS: BLOOD UREA NITROGEN 19 mg/dL (9-20); CALCIUM 8.5 mg/dl (8.6-10.4); GFR NON-AFRICAN AMERICAN > 60
[2018-06-04] MEDS: Dextrose 5%/0.45% NS 1,000 ML IV SCH ×2 (01:06→16:51)
[2018-06-04 01:08] LABS: CK-MB 2.55 ng/mL (0.0-3.38)
[2018-06-04 11:29] LABS: BASO % 0.3 % (0.0-2.0); EOS # 0.1 K/uL (0.0-0.7); HEMOGLOBIN 12.9 g/dL (12.0-18.0); LYMPH # 1.2 K/uL (1.0-4.3); LYMPH % 14.3 % (20.0-40.0); MEAN CELL VOLUME 85.2 fL (80.0-94.0); MEAN CORPUSCULAR HEMOGLOBIN 28.6 pg (27.0-31.0); MEAN CORPUSCULAR HGB CONC 33.6 g/dL (33.0-37.0); MEAN PLATELET VOLUME 10.2 fL (7.2-11.7); MONO # 0.6 K/uL (0.0-0.8); MONO % 7.4 % (0.0-10.0); NEUT # 6.2 K/uL (1.8-7.0); RBC 4.5 Mil/uL (4.40-5.90); RED CELL DISTRIBUTION WIDTH 15.1 % (11.5-14.5); WHITE BLOOD COUNT 8.1 K/uL (4.8-10.8)
[2018-06-04 11:59] LABS: ALBUMIN 3.3 g/dL (3.5-5.0); ALT/SGPT 20 U/L (21-72); AST/SGOT 22 U/L (17-59); BLOOD UREA NITROGEN 15 mg/dL (9-20); CALCIUM 8.3 mg/dl (8.6-10.4); GFR NON-AFRICAN AMERICAN > 60
--- NOTE | 2018-06-04 14:48 | CP.PCM.PN ---
Subjective - Date & Time of Evaluation Date of Evaluation: 06/04/18 Time of Evaluation: 14:46 - Subjective Subjective: Progress note for Dr. Gagnon's Service Pt seen and examined at bedside. He is clinically unchanged. He does not communicate any discomfort/concerns. He appears comfortable. Objective - Vital Signs/Intake and Output Vital Signs (last 24 hours): Temp Pulse Resp BP Pulse Ox 97.8 F 59 L 20 115/70 100 06/03/18 23:30 06/04/18 07:05 06/03/18 23:30 06/03/18 23:30 06/03/18 23:30 Intake and Output: 06/04/18 06/04/18 06:59 18:59 Intake Total 1340 Output Total 650 Balance 690 - Medications Medications: Current Medications Aspirin (Aspirin Chewable) 81 mg PO DAILY [facility] Last Admin: 06/03/18 11:49 Dose: 81 mg Enoxaparin Sodium (Lovenox) 60 mg SC Q12 [facility] Ceftriaxone Sodium 1 gm/ (Sodium Chloride) 100 mls @ 100 mls/hr IVPB DAILY [facility]; Protocol Last Admin: 06/03/18 11:50 Dose: 100 mls/hr Dextrose/Sodium Chloride (Dextrose 5%/0.45% Ns 1000 Ml) 1,000 mls @ 70 mls/hr IV .[id number] [facility] Last Admin: 06/04/18 01:06 Dose: 70 mls/hr Lorazepam (Ativan) 0.5 mg IVP Q6H PRN PRN Reason: Anxiety Last Admin: 06/04/18 10:17 Dose: 0.5 mg Quetiapine Fumarate (Seroquel) 50 mg PO HS [facility] Last Admin: 06/03/18 21:55 Dose: 50 mg Saccharomyces Boulardii (Florastor) 250 mg PO BID [facility] - Labs Labs: 06/04/18 11:20 06/04/18 11:20 - Constitutional Appears: No Acute Distress - Head Exam Head Exam: ATRAUMATIC, NORMOCEPHALIC - Eye Exam Eye Exam: EOMI, Normal appearance - ENT Exam ENT Exam: Mucous Membranes Moist - Respiratory Exam Respiratory Exam: Clear to Ausculation Bilateral, NORMAL BREATHING PATTERN - Cardiovascular Exam Cardiovascular Exam: REGULAR RHYTHM, +S1, +S2 - GI/Abdominal Exam GI & Abdominal Exam: Soft. absent: Tenderness - Neurological Exam Neurological Exam: Alert - Skin Skin Exam: Dry, Warm Assessment and Plan - Assessment and Plan (Free Text) Plan: Severe Dementia History traumatic brain injury * non verbal at baseline--> series a grunting, mobile, needs one-to-one attention * [facility] altered diet with thin liquids * 1:1 * valproic acid level <10 * restart home med: Depakote 125mg po BID * Seroquel 50mg po HS * Ativan .5mg ivp q6h prn for agitation Hypernatremia- improved/resolve * Attributed to poor poor oral intake and dehydration * Na+ 154 on admission-> now 140 * consult Dr. Santos, nephro, help appreciated * - May discontinue with 1/2 NS D5W as serum Na 140 now - Uosm 600 and serum osmoles 300 indicating appropriate response - Continue oral hydration and meals * Urine Osm 600, Urine Na 171, Urine potassium 32.1 New Onset A Fib * A fib seen on EKG which is new * repeat EKG * place patient on tele * consult cardio, Dr. Mar, help appreciated * currently in sinus rhythm. recommend lovenox while in the hospital. Patient is not ideal candidate for long-term anticoagulation due to falls risk. * f/u echo * TSH 0.44, free T4 0.95 * Negative JMI x 2 * ASA 81mg po daily Hematuria * 1+ blood on U/A * f/u urine culture * renal u/s- renal disease, no obstruction * Rocephin 1 gm daily Prophylaxis * SCDs * f/u case management for possible skilled nursing placement- Patient does not have adequate care at home * PT/ OT * One-to-one * Lovenox 60mg SQ Q12hrs * Florastor Case discussed with Dr. Gagnon All medical management as per Dr. Gagnon
--- NOTE | 2018-06-04 15:36 | CP.PCM.PN ---
Subjective - Date & Time of Evaluation Date of Evaluation: 06/04/18 Time of Evaluation: 10:00 - Subjective Subjective: Sona Villasenor DO, PGY-2: Nephrology Progress Note for Dr. Santos Patient seen and examined at bedside. Patient sleeping comfortably. 1:1 reports patients has been much less agitated. Objective - Vital Signs/Intake and Output Vital Signs (last 24 hours): Temp Pulse Resp BP Pulse Ox 97.8 F 59 L 20 115/70 100 06/03/18 23:30 06/04/18 07:05 06/03/18 23:30 06/03/18 23:30 06/03/18 23:30 Intake and Output: 06/04/18 06/04/18 06:59 18:59 Intake Total 1340 Output Total 650 Balance 690 - Medications Medications: Current Medications Aspirin (Aspirin Chewable) 81 mg PO DAILY [facility] Last Admin: 06/03/18 11:49 Dose: 81 mg Enoxaparin Sodium (Lovenox) 60 mg SC Q12 [facility] Ceftriaxone Sodium 1 gm/ (Sodium Chloride) 100 mls @ 100 mls/hr IVPB DAILY [facility]; Protocol Last Admin: 06/03/18 11:50 Dose: 100 mls/hr Dextrose/Sodium Chloride (Dextrose 5%/0.45% Ns 1000 Ml) 1,000 mls @ 70 mls/hr IV .[id number] [facility] Last Admin: 06/04/18 01:06 Dose: 70 mls/hr Lorazepam (Ativan) 0.5 mg IVP Q6H PRN PRN Reason: Anxiety Last Admin: 06/04/18 10:17 Dose: 0.5 mg Quetiapine Fumarate (Seroquel) 50 mg PO HS [facility] Last Admin: 06/03/18 21:55 Dose: 50 mg Saccharomyces Boulardii (Florastor) 250 mg PO BID [facility] - Labs Labs: 06/04/18 11:20 06/04/18 11:20 - Constitutional Appears: Non-toxic - Head Exam Head Exam: ATRAUMATIC, NORMOCEPHALIC - Eye Exam Eye Exam: EOMI - ENT Exam ENT Exam: Mucous Membranes Moist - Neck Exam Neck Exam: Normal Inspection - Respiratory Exam Respiratory Exam: NORMAL BREATHING PATTERN. absent: Accessory Muscle Use - Cardiovascular Exam Cardiovascular Exam: RRR, +S1, +S2 - GI/Abdominal Exam GI & Abdominal Exam: Soft, Normal Bowel Sounds - Extremities Exam Extremities Exam: Normal Inspection - Neurological Exam Additional comments: patient sleeping Assessment and Plan (1) Hypernatremia Assessment & Plan: - May discontinue with 1/2 NS D5W as serum Na 140 now - Uosm 600 and serum osmoles 300 indicating appropriate response - Continue oral hydration and meals As always, thank you for allowing us to participate in the care of this patient Status: Acute
[2018-06-04] MEDS: Saccharomyces Boulardi 250 mg Cap PO SCH ×2 (16:51→17:19)
[2018-06-04] MEDS: Enoxaparin 60 mg Syringe SC SCH ×2 (16:51→22:51)
--- NOTE | 2018-06-04 18:29 | CARD ---
APPROVED REPORT Date of service: 06/03/2018 EKG Measurement Heart [id number] <Conclusion> Sinus bradycardia Otherwise normal ECG
[2018-06-05] MEDS: Saccharomyces Boulardi 250 mg Cap PO SCH ×2 (09:00→18:47)
[2018-06-05] MEDS: Enoxaparin 60 mg Syringe SC SCH ×2 (09:00→21:16)
[2018-06-05] MEDS: Divalproex 125 mg DR Tab PO SCH ×2 (11:11→18:47)
--- NOTE | 2018-06-05 11:20 | CARD ---
APPROVED REPORT Date of service: 06/04/2018 EXAM: Two-dimensional and M-mode echocardiogram with Doppler and color Doppler. Other Information Quality : GoodRhythm : INDICATION Atrial Fibrillation COPD RISK FACTORS Hypertension 2D DIMENSIONS IVSd0.7 (0.7-1.1cm)LVDd4.2 (3.9-5.9cm) PWd0.6 (0.7-1.1cm)LVDs2.9 (2.5-4.0cm) FS (%) 31.1 %LVEF (%)59.1 (>50%) M-Mode DIMENSIONS Left Atrium (MM)2.61 (2.5-4.0cm)Aortic Root2.80 (2.2-3.7cm) Aortic Cusp Exc.1.91 (1.5-2.0cm)TAPSE1.6 cm Mitral Valve MV E Zsberafl16.5cm/sMV A Akwgfclp27.9cm/sE/A ratio1.1 TDI E/Lateral E'0.0E/Medial E'0.0 Tricuspid Valve TR Peak [id number]/sTR Peak Gr.[id number] LEFT VENTRICLE The left ventricle is normal size. There is normal left ventricular wall thickness. The Ejection Fraction is 55-60%. There is normal LV segmental wall motion. The left ventricular diastolic function is normal. RIGHT VENTRICLE The right ventricle is normal size. The right ventricular systolic function is normal. ATRIA The left atrium size is normal. The right atrium size is normal. The interatrial septum is intact with no evidence for an atrial septal defect. AORTIC VALVE The aortic valve is mildly thickened.aortic valve not well seen, probably trileaflet. No aortic regurgitation is present. MITRAL VALVE The mitral valve is normal in structure. Mitral regurgitation is mild. TRICUSPID VALVE The tricuspid valve is normal in structure. There is mild tricuspid regurgitation. Right ventricular systolic pressure is estimated at 27 mmHg. There is no pulmonary hypertension. PULMONIC VALVE The pulmonary valve is normal in structure. There is mild pulmonic valvular regurgitation. GREAT VESSELS The aortic root is normal in size. The IVC is normal in size and collapses >50% with inspiration. PERICARDIAL EFFUSION There is no pericardial effusion. <Conclusion> The left ventricle is normal size. The Ejection Fraction is 55-60%. The left ventricular diastolic function is normal. Mitral regurgitation is mild. There is mild tricuspid regurgitation. Right ventricular systolic pressure is estimated at 27 mmHg. There is no pulmonary hypertension.
[2018-06-05 11:24] LABS: BASO % 0.4 % (0.0-2.0); EOS # 0.1 K/uL (0.0-0.7); LYMPH # 1.1 K/uL (1.0-4.3); LYMPH % 13.8 % (20.0-40.0); MEAN CELL VOLUME 85.5 fL (80.0-94.0); MEAN PLATELET VOLUME 10.6 fL (7.2-11.7); MONO # 0.6 K/uL (0.0-0.8); MONO % 7.2 % (0.0-10.0); NEUT # 6.2 K/uL (1.8-7.0); NEUT % 77.6 % (50.0-75.0); RBC 4.81 Mil/uL (4.40-5.90)
[2018-06-05 11:47] LABS: ALB/GLOB RATIO 1.1 (1.0-2.1); ALT/SGPT 16 U/L (21-72); AST/SGOT 26 U/L (17-59); BLOOD UREA NITROGEN 13 mg/dL (9-20); GFR NON-AFRICAN AMERICAN > 60
--- NOTE | 2018-06-05 16:45 | CP.PCM.PN ---
Subjective - Date & Time of Evaluation Date of Evaluation: 06/05/18 Time of Evaluation: 07:00 - Subjective Subjective: PGY2 Progress Note for Dr. Gagnon Pt seen and examined at bedside and in no acute distress. He is clinically unchanged. Pt does not communicate any discomfort/concerns. Objective - Vital Signs/Intake and Output Vital Signs (last 24 hours): Temp Pulse Resp BP Pulse Ox 98.2 F 84 20 142/59 L 96 06/05/18 15:57 06/05/18 15:57 06/05/18 15:57 06/05/18 15:57 06/05/18 15:57 Intake and Output: 06/05/18 06/05/18 06:59 18:59 Intake Total 200 Output Total 2700 Balance -2500 - Medications Medications: Current Medications Aspirin (Aspirin Chewable) 81 mg PO DAILY [facility] Last Admin: 06/05/18 09:00 Dose: 81 mg Divalproex Sodium (Depakote Dr Tab) 125 mg PO BID [facility] Last Admin: 06/05/18 11:11 Dose: 125 mg Enoxaparin Sodium (Lovenox) 60 mg SC Q12 [facility] Last Admin: 06/05/18 09:00 Dose: 60 mg Ceftriaxone Sodium 1 gm/ (Sodium Chloride) 100 mls @ 100 mls/hr IVPB DAILY [facility]; Protocol Last Admin: 06/05/18 11:11 Dose: 100 mls/hr Lorazepam (Ativan) 0.5 mg IVP Q6H PRN PRN Reason: Anxiety Last Admin: 06/04/18 17:18 Dose: 0.5 mg Quetiapine Fumarate (Seroquel) 50 mg PO HS [facility] Last Admin: 06/04/18 22:51 Dose: 50 mg Saccharomyces Boulardii (Florastor) 250 mg PO BID [facility] Last Admin: 06/05/18 09:00 Dose: 250 mg - Labs Labs: 06/05/18 11:15 06/05/18 11:15 - Additional Findings Additional findings: - Constitutional Appears: No Acute Distress - Head Exam Head Exam: ATRAUMATIC, NORMOCEPHALIC - Eye Exam Eye Exam: EOMI, Normal appearance - ENT Exam ENT Exam: Mucous Membranes Moist - Respiratory Exam Respiratory Exam: Clear to Ausculation Bilateral, NORMAL BREATHING PATTERN - Cardiovascular Exam Cardiovascular Exam: REGULAR RHYTHM, +S1, +S2 - GI/Abdominal Exam GI & Abdominal Exam: Soft. absent: Tenderness - Neurological Exam Neurological Exam: Alert - Skin Skin Exam: Dry, Warm Assessment and Plan - Assessment and Plan (Free Text) Assessment: Severe Dementia 2/2 History traumatic brain injury * non verbal at baseline--> series a grunting, mobile, needs one-to-one attention * [facility] altered diet with thin liquids * 1:1 * valproic acid level <10 * restarted home med: Depakote 125mg po BID * Seroquel 50mg po HS * Ativan .5mg ivp q6h prn for agitation Hypernatremia- improved/resolve * Attributed to poor poor oral intake and dehydration * Na+ 154 on admission-> now 140 * consult Dr. Santos, nephro, help appreciated * - May discontinue with 1/2 NS D5W as serum Na 140 now - Uosm 600 and serum osmoles 300 indicating appropriate response - Continue oral hydration and meals * Urine Osm 600, Urine Na 171, Urine potassium 32.1 New Onset A Fib * A fib seen on EKG which is new * repeat EKG showed NSR. * consult cardio, Dr. Mar, help appreciated * currently in sinus rhythm. recommend lovenox while in the hospital. Patient is not ideal candidate for intermediate anticoagulation due to falls risk. * echo: left ventricle normal size, EF: 55-60%, left ventricular diastolic function is normal. mitral regurg is mild. mild tricuspid regurg. right ventricular systolic pressure is estimated at 27mmHg. No pulmonary hypertension. * TSH 0.44, free T4 0.95 * Negative JIM x 2 * ASA 81mg po daily Hematuria * 1+ blood on U/A * f/u urine culture * renal u/s- renal disease, no obstruction * Rocephin 1 gm daily Prophylaxis * SCDs * f/u case management for possible correction placement- Patient does not have adequate care at home * PT/ OT * One-to-one * Lovenox 60mg SQ Q12hrs * Florastor Case discussed with Dr. Gagnon All medical management as per Dr. Gagnon
--- NOTE | 2018-06-05 19:33 | CP.PCM.PN ---
Subjective - Date & Time of Evaluation Date of Evaluation: 06/05/18 Time of Evaluation: 13:00 - Subjective Subjective: Patient tolerating diet/liquids, being fed by staff; Objective - Vital Signs/Intake and Output Vital Signs (last 24 hours): Temp Pulse Resp BP Pulse Ox 98.2 F 84 20 142/59 L 96 06/05/18 15:57 06/05/18 15:57 06/05/18 15:57 06/05/18 15:57 06/05/18 15:57 - Medications Medications: Current Medications Aspirin (Aspirin Chewable) 81 mg PO DAILY [facility] Last Admin: 06/05/18 09:00 Dose: 81 mg Divalproex Sodium (Depakote Dr Tab) 125 mg PO BID [facility] Last Admin: 06/05/18 18:47 Dose: 125 mg Enoxaparin Sodium (Lovenox) 60 mg SC Q12 [facility] Last Admin: 06/05/18 09:00 Dose: 60 mg Ceftriaxone Sodium 1 gm/ (Sodium Chloride) 100 mls @ 100 mls/hr IVPB DAILY [facility]; Protocol Last Admin: 06/05/18 11:11 Dose: 100 mls/hr Lorazepam (Ativan) 0.5 mg IVP Q6H PRN PRN Reason: Anxiety Last Admin: 06/04/18 17:18 Dose: 0.5 mg Quetiapine Fumarate (Seroquel) 50 mg PO HS [facility] Last Admin: 06/04/18 22:51 Dose: 50 mg Saccharomyces Boulardii (Florastor) 250 mg PO BID [facility] Last Admin: 06/05/18 18:47 Dose: 250 mg - Labs Labs: 06/05/18 11:15 06/05/18 11:15 - Constitutional Appears: Non-toxic, No Acute Distress - Respiratory Exam Respiratory Exam: Clear to Ausculation Bilateral. absent: Respiratory Distress - Cardiovascular Exam Cardiovascular Exam: RRR, +S1, +S2 - Extremities Exam Additional comments: no leg edema; Assessment and Plan (1) Hypernatremia Assessment & Plan: Resolving; serum Na stable off IVF and patient tolerating PO diet/liquids; Nephro will sign off; please feel free to call us back anytime. Status: Acute
[2018-06-06 07:09] LABS: BASO # 0.1 K/uL (0.0-0.2); BASO % 0.5 % (0.0-2.0); EOS # 0.1 K/uL (0.0-0.7); EOS % 0.8 % (0.0-4.0); HEMOGLOBIN 14.1 g/dL (12.0-18.0); LYMPH # 1.1 K/uL (1.0-4.3); LYMPH % 12.4 % (20.0-40.0); MEAN CELL VOLUME 84.5 fL (80.0-94.0); MEAN CORPUSCULAR HEMOGLOBIN 28.9 pg (27.0-31.0); MEAN CORPUSCULAR HGB CONC 34.2 g/dL (33.0-37.0); MEAN PLATELET VOLUME 10.2 fL (7.2-11.7); MONO # 0.8 K/uL (0.0-0.8); MONO % 8.2 % (0.0-10.0); NEUT # 7.2 K/uL (1.8-7.0); NEUT % 78.1 % (50.0-75.0); NRBC % 0.1 % (0.0-2.0); RBC 4.87 Mil/uL (4.40-5.90); WHITE BLOOD COUNT 9.2 K/uL (4.8-10.8)
[2018-06-06 07:33] LABS: ALBUMIN 3.7 g/dL (3.5-5.0); ALT/SGPT 19 U/L (21-72); AST/SGOT 28 U/L (17-59); BLOOD UREA NITROGEN 12 mg/dL (9-20); CALCIUM 8.5 mg/dl (8.6-10.4); GFR NON-AFRICAN AMERICAN > 60
[2018-06-06] MEDS: Enoxaparin 60 mg Syringe SC SCH ×2 (09:07→21:20)
[2018-06-06] MEDS: Saccharomyces Boulardi 250 mg Cap PO SCH ×2 (09:08→18:04)
[2018-06-06] MEDS: Divalproex 125 mg DR Tab PO SCH ×2 (09:08→18:04)
--- NOTE | 2018-06-06 10:30 | CP.PCM.PN ---
Subjective - Date & Time of Evaluation Date of Evaluation: 06/06/18 Time of Evaluation: 07:00 - Subjective Subjective: PGY2 Progress Note for Dr. Gagnon Pt seen and examined at bedside and in no acute distress. He is clinically unchanged. Pt does not communicate any discomfort/concerns. Objective - Vital Signs/Intake and Output Vital Signs (last 24 hours): Temp Pulse Resp BP Pulse Ox 97.8 F 82 20 146/88 97 06/06/18 07:05 06/06/18 07:05 06/06/18 07:05 06/06/18 07:05 06/06/18 07:05 Intake and Output: 06/06/18 06/06/18 06:59 18:59 Intake Total 425 Output Total 400 Balance 25 - Medications Medications: Current Medications Aspirin (Aspirin Chewable) 81 mg PO DAILY [facility] Last Admin: 06/06/18 09:08 Dose: 81 mg Divalproex Sodium (Depakote Dr Tab) 125 mg PO BID [facility] Last Admin: 06/06/18 09:08 Dose: 125 mg Enoxaparin Sodium (Lovenox) 60 mg SC Q12 [facility] Last Admin: 06/06/18 09:07 Dose: 60 mg Ceftriaxone Sodium 1 gm/ (Sodium Chloride) 100 mls @ 100 mls/hr IVPB DAILY [facility]; Protocol Last Admin: 06/06/18 09:09 Dose: 100 mls/hr Lorazepam (Ativan) 0.5 mg IVP Q6H PRN PRN Reason: Anxiety Last Admin: 06/06/18 09:01 Dose: 0.5 mg Quetiapine Fumarate (Seroquel) 50 mg PO HS [facility] Last Admin: 06/05/18 21:16 Dose: 50 mg Saccharomyces Boulardii (Florastor) 250 mg PO BID [facility] Last Admin: 06/06/18 09:08 Dose: 250 mg - Labs Labs: 06/06/18 06:54 06/06/18 06:54 - Additional Findings Additional findings: - Constitutional Appears: No Acute Distress - Head Exam Head Exam: ATRAUMATIC, NORMOCEPHALIC - Eye Exam Eye Exam: EOMI, Normal appearance - ENT Exam ENT Exam: Mucous Membranes Moist - Respiratory Exam Respiratory Exam: Clear to Ausculation Bilateral, NORMAL BREATHING PATTERN - Cardiovascular Exam Cardiovascular Exam: REGULAR RHYTHM, +S1, +S2 - GI/Abdominal Exam GI & Abdominal Exam: Soft. absent: Tenderness - Neurological Exam Neurological Exam: Alert - Skin Skin Exam: Dry, Warm Assessment and Plan - Assessment and Plan (Free Text) Assessment: Severe Dementia 2/2 History traumatic brain injury * non verbal at baseline--> series a grunting, mobile, needs one-to-one attention * [facility] altered diet with thin liquids * 1:1 * valproic acid level <10 * restarted home med: Depakote 125mg po BID * Seroquel 50mg po HS * Ativan .5mg ivp q6h prn for agitation Hypernatremia- improved/resolved * Attributed to poor poor oral intake and dehydration * Na+ 154 on admission-> now 140 * consult Dr. Santos, nephro, help appreciated * - May discontinue with 1/2 NS D5W as serum Na 140 now - Uosm 600 and serum osmoles 300 indicating appropriate response - Continue oral hydration and meals * Urine Osm 600, Urine Na 171, Urine potassium 32.1 New Onset A Fib- resolved * A fib seen on 1 EKG which is new * repeat EKG showed NSR. * consult cardio, Dr. Mar, help appreciated * currently in sinus rhythm. recommend lovenox while in the hospital. Patient is not ideal candidate for alf anticoagulation due to falls risk. * echo: left ventricle normal size, EF: 55-60%, left ventricular diastolic function is normal. mitral regurg is mild. mild tricuspid regurg. right ventricular systolic pressure is estimated at 27mmHg. No pulmonary hypertension. * TSH 0.44, free T4 0.95 * Negative JIM x 2 * ASA 81mg po daily Hematuria * 1+ blood on U/A * urine culture negative * renal u/s- renal disease, no obstruction * Rocephin 1 gm daily Prophylaxis * SCDs * f/u case management for possible [place] [facility] placement- Patient does not have adequate care at home * PT/ OT * One-to-one * Lovenox 60mg SQ Q12hrs * Florastor Case discussed with Dr. Gagnon All medical management as per Dr. Gagnon
[2018-06-07 07:19] LABS: BASO % 0.6 % (0.0-2.0); EOS # 0.1 K/uL (0.0-0.7); EOS % 1.6 % (0.0-4.0); HEMOGLOBIN 13.6 g/dL (12.0-18.0); LYMPH # 1.1 K/uL (1.0-4.3); LYMPH % 13.7 % (20.0-40.0); MEAN CELL VOLUME 85.2 fL (80.0-94.0); MEAN CORPUSCULAR HEMOGLOBIN 29.2 pg (27.0-31.0); MEAN CORPUSCULAR HGB CONC 34.3 g/dL (33.0-37.0); MEAN PLATELET VOLUME 9.9 fL (7.2-11.7); MONO # 0.8 K/uL (0.0-0.8); MONO % 9.3 % (0.0-10.0); NEUT % 74.8 % (50.0-75.0); NRBC % 0.1 % (0.0-2.0); RBC 4.66 Mil/uL (4.40-5.90); WHITE BLOOD COUNT 8.1 K/uL (4.8-10.8)
[2018-06-07 07:55] LABS: ALBUMIN 3.8 g/dL (3.5-5.0); ALT/SGPT 16 U/L (21-72); AST/SGOT 29 U/L (17-59); BLOOD UREA NITROGEN 15 mg/dL (9-20); GFR NON-AFRICAN AMERICAN > 60
[2018-06-07] MEDS: Saccharomyces Boulardi 250 mg Cap PO SCH ×2 (09:59→21:01)
[2018-06-07] MEDS: Divalproex 125 mg DR Tab PO SCH ×2 (09:59→21:40)
[2018-06-07] MEDS: Enoxaparin 60 mg Syringe SC SCH ×2 (10:00→21:37)
--- NOTE | 2018-06-07 14:41 | CP.PCM.PN ---
Subjective - Date & Time of Evaluation Date of Evaluation: 06/07/18 Time of Evaluation: 14:37 - Subjective Subjective: MEDICINE NOTE FOR DR. GOLDMAN'S SERVICE Pt seen and examined at bedside. He is clinically unchanged. No acute events reported. He is awaiting discharge however socioeconomic difficulties have prevented this from occurring. Objective - Vital Signs/Intake and Output Vital Signs (last 24 hours): Temp Pulse Resp BP Pulse Ox 97.9 F 113 H 20 115/71 95 06/07/18 07:00 06/07/18 07:00 06/07/18 07:00 06/07/18 07:00 06/07/18 07:00 Intake and Output: 06/07/18 06/07/18 06:59 18:59 Output Total 500 Balance -500 - Medications Medications: Current Medications Aspirin (Aspirin Chewable) 81 mg PO DAILY [facility] Last Admin: 06/07/18 10:00 Dose: 81 mg Divalproex Sodium (Depakote Dr Tab) 125 mg PO BID [facility] Last Admin: 06/07/18 09:59 Dose: 125 mg Enoxaparin Sodium (Lovenox) 60 mg SC Q12 [facility] Last Admin: 06/07/18 10:00 Dose: 60 mg Ceftriaxone Sodium 1 gm/ (Sodium Chloride) 100 mls @ 100 mls/hr IVPB DAILY [facility]; Protocol Last Admin: 06/07/18 10:00 Dose: 100 mls/hr Lorazepam (Ativan) 0.5 mg IVP Q6H PRN PRN Reason: Anxiety Last Admin: 06/07/18 09:59 Dose: 0.5 mg Quetiapine Fumarate (Seroquel) 50 mg PO HS [facility] Last Admin: 06/06/18 21:20 Dose: 50 mg Saccharomyces Boulardii (Florastor) 250 mg PO BID [facility] Last Admin: 06/07/18 09:59 Dose: 250 mg - Labs Labs: 06/07/18 07:00 06/07/18 07:00 - Constitutional Appears: No Acute Distress - Head Exam Head Exam: ATRAUMATIC, NORMOCEPHALIC - ENT Exam ENT Exam: Mucous Membranes Moist - Cardiovascular Exam Cardiovascular Exam: REGULAR RHYTHM - GI/Abdominal Exam GI & Abdominal Exam: Soft. absent: Tenderness - Neurological Exam Neurological Exam: Alert - Skin Skin Exam: Dry, Warm Assessment and Plan - Assessment and Plan (Free Text) Plan: Severe Dementia 2/2 History traumatic brain injury * non verbal at baseline--> series a grunting, mobile, needs one-to-one attention * [facility] altered diet with thin liquids * 1:1 * valproic acid level <10 * restarted home med: Depakote 125mg po BID * Seroquel 50mg po HS * Ativan .5mg ivp q6h prn for agitation Hypernatremia- improved/resolved * Attributed to poor poor oral intake and dehydration * Na+ 154 on admission-> now 140 * consult Dr. Santos, nephro, help appreciated * - May discontinue with 1/2 NS D5W as serum Na 140 now - Uosm 600 and serum osmoles 300 indicating appropriate response - Continue oral hydration and meals * Urine Osm 600, Urine Na 171, Urine potassium 32.1 New Onset A Fib- resolved * A fib seen on 1 EKG which is new * repeat EKG showed NSR. * consult cardio, Dr. Mar, help appreciated * currently in sinus rhythm. recommend lovenox while in the hospital. Patient is not ideal candidate for [facility] anticoagulation due to falls risk. * echo: left ventricle normal size, EF: 55-60%, left ventricular diastolic function is normal. mitral regurg is mild. mild tricuspid regurg. right ventricular systolic pressure is estimated at 27mmHg. No pulmonary hypertension. * TSH 0.44, free T4 0.95 * Negative JIM x 2 * ASA 81mg po daily Hematuria * 1+ blood on U/A * urine culture negative * renal u/s- renal disease, no obstruction * Rocephin 1 gm daily Prophylaxis * SCDs * f/u [facility] management for possible [facility] placement- Patient does not have adequate care at home * PT/ OT * One-to-one * Lovenox 60mg SQ Q12hrs * Florastor Case discussed with Dr. Goldman All medical management as per Dr. Goldman
[2018-06-08] MEDS: Divalproex 125 mg DR Tab PO SCH ×2 (09:53→17:29)
[2018-06-08] MEDS: Saccharomyces Boulardi 250 mg Cap PO SCH ×2 (09:53→17:29)
[2018-06-08] MEDS: Enoxaparin 60 mg Syringe SC SCH ×2 (09:53→22:07)
[2018-06-08 12:06] LABS: BASO % 0.6 % (0.0-2.0); EOS # 0.1 K/uL (0.0-0.7); EOS % 1.9 % (0.0-4.0); HEMOGLOBIN 13.3 g/dL (12.0-18.0); LYMPH # 1.1 K/uL (1.0-4.3); LYMPH % 15.3 % (20.0-40.0); MEAN CELL VOLUME 85.1 fL (80.0-94.0); MEAN CORPUSCULAR HGB CONC 34.1 g/dL (33.0-37.0); MEAN PLATELET VOLUME 9.8 fL (7.2-11.7); MONO # 0.7 K/uL (0.0-0.8); MONO % 10.8 % (0.0-10.0); NEUT % 71.4 % (50.0-75.0); RBC 4.59 Mil/uL (4.40-5.90); RED CELL DISTRIBUTION WIDTH 14.6 % (11.5-14.5); WHITE BLOOD COUNT 6.9 K/uL (4.8-10.8)
[2018-06-08 12:16] LABS: ALBUMIN 3.8 g/dL (3.5-5.0); ALT/SGPT 23 U/L (21-72); AST/SGOT 30 U/L (17-59); BLOOD UREA NITROGEN 15 mg/dL (9-20); CALCIUM 9.3 mg/dl (8.6-10.4); GFR NON-AFRICAN AMERICAN > 60
[2018-06-09] MEDS: Saccharomyces Boulardi 250 mg Cap PO SCH ×2 (09:22→20:01)
[2018-06-09] MEDS: Divalproex 125 mg DR Tab PO SCH ×2 (09:22→20:01)
[2018-06-09] MEDS: Enoxaparin 60 mg Syringe SC SCH ×2 (09:22→21:30)
[2018-06-09] MEDS ORDERED: Influenza Vaccine 60 MCG/0.5 ML SYR (3 yr & up) IM ONE (10:00)
[2018-06-10] MEDS: Saccharomyces Boulardi 250 mg Cap PO SCH ×2 (10:39→17:58)
[2018-06-10] MEDS: Divalproex 125 mg DR Tab PO SCH ×2 (10:39→17:59)
[2018-06-10] MEDS: Enoxaparin 60 mg Syringe SC SCH ×2 (10:42→21:20)
--- NOTE | 2018-06-10 13:13 | CP.PCM.PN ---
Subjective - Date & Time of Evaluation Date of Evaluation: 06/10/18 Time of Evaluation: 07:00 - Subjective Subjective: PGY2 Progress Note for Dr. Gagnon Pt seen and examined at bedside and in no acute distress. He is clinically unchanged. Pt does not communicate any discomfort/concerns. Objective - Vital Signs/Intake and Output Vital Signs (last 24 hours): Temp Pulse Resp BP Pulse Ox 97.9 F 110 H 20 162/85 H 95 06/10/18 07:18 06/10/18 07:18 06/10/18 07:18 06/10/18 07:18 06/10/18 07:18 - Medications Medications: Current Medications Aspirin (Aspirin Chewable) 81 mg PO DAILY [facility] Last Admin: 06/10/18 10:39 Dose: 81 mg Divalproex Sodium (Depakote Dr Tab) 125 mg PO BID [facility] Last Admin: 06/10/18 10:39 Dose: 125 mg Enoxaparin Sodium (Lovenox) 60 mg SC Q12 [facility] Last Admin: 06/10/18 10:42 Dose: Not Given Lorazepam (Ativan) 0.5 mg IVP Q6H PRN PRN Reason: Anxiety Last Admin: 06/10/18 06:18 Dose: 0.5 mg Quetiapine Fumarate (Seroquel) 50 mg PO HS [facility] Last Admin: 06/09/18 21:31 Dose: 50 mg Saccharomyces Boulardii (Florastor) 250 mg PO BID [facility] Last Admin: 06/10/18 10:39 Dose: 250 mg - Labs Labs: 06/08/18 11:50 06/08/18 11:50 - Additional Findings Additional findings: - Constitutional Appears: No Acute Distress - Head Exam Head Exam: ATRAUMATIC, NORMOCEPHALIC - Eye Exam Eye Exam: EOMI, Normal appearance - ENT Exam ENT Exam: Mucous Membranes Moist - Respiratory Exam Respiratory Exam: Clear to Ausculation Bilateral, NORMAL BREATHING PATTERN - Cardiovascular Exam Cardiovascular Exam: REGULAR RHYTHM, +S1, +S2 - GI/Abdominal Exam GI & Abdominal Exam: Soft. absent: Tenderness - Neurological Exam Neurological Exam: Alert - Skin Skin Exam: Dry, Warm Assessment and Plan - Assessment and Plan (Free Text) Assessment: Severe Dementia 2/2 History traumatic brain injury * non verbal at baseline--> series a grunting, mobile, needs one-to-one attention * [facility] altered diet with thin liquids * 1:1 * valproic acid level <10 * restarted home med: Depakote 125mg po BID * Seroquel 50mg po HS * Ativan .5mg ivp q6h prn for agitation Hypernatremia-resolved * Attributed to poor poor oral intake and dehydration * Na+ 154 on admission-> now 140 * consult Dr. Santos, nephro, help appreciated * - May discontinue with 1/2 NS D5W as serum Na 140 now - Uosm 600 and serum osmoles 300 indicating appropriate response - Continue oral hydration and meals * Urine Osm 600, Urine Na 171, Urine potassium 32.1 New Onset A Fib- resolved * A fib seen on 1 EKG which is new * repeat EKG showed NSR. * consult cardio, Dr. Mar, help appreciated * currently in sinus rhythm. recommend lovenox while in the hospital. Patient is not ideal candidate for group home anticoagulation due to falls risk. * echo: left ventricle normal size, EF: 55-60%, left ventricular diastolic funct ion is normal. mitral regurg is mild. mild tricuspid regurg. right ventricular systolic pressure is estimated at 27mmHg. No pulmonary hypertension. * TSH 0.44, free T4 0.95 * Negative JIM x 2 * ASA 81mg po daily Hematuria * 1+ blood on U/A * urine culture negative * renal u/s- renal disease, no obstruction Prophylaxis * SCDs * f/u case management for possible custodial placement- Patient does not have adequate care at home * PT/ OT * One-to-one * Lovenox 60mg SQ Q12hrs * Florastor Case discussed with Dr. Gagnon Patient stable for discharge as per Dr. Gagnon
[2018-06-11] MEDS: Saccharomyces Boulardi 250 mg Cap PO SCH ×2 (09:45→18:17)
[2018-06-11] MEDS: Divalproex 125 mg DR Tab PO SCH ×2 (09:45→18:17)
[2018-06-11] MEDS: Enoxaparin 60 mg Syringe SC SCH ×2 (09:46→21:57)
--- NOTE | 2018-06-11 15:12 | CP.PCM.PN ---
Subjective - Date & Time of Evaluation Date of Evaluation: 06/11/18 Time of Evaluation: 07:00 - Subjective Subjective: PGY2 Medicine Note for Dr. Gagnon Patient seen and examined at bedside and in no acute distress. He is clinically unchanged. ROS unattainable. Objective - Vital Signs/Intake and Output Vital Signs (last 24 hours): Temp Pulse Resp BP Pulse Ox 98 F 75 18 129/80 97 06/11/18 08:00 06/11/18 08:00 06/11/18 08:00 06/11/18 08:00 06/11/18 08:00 Intake and Output: 06/11/18 06/11/18 06:59 18:59 Intake Total 600 Balance 600 - Medications Medications: Current Medications Aspirin (Aspirin Chewable) 81 mg PO DAILY [facility] Last Admin: 06/11/18 09:45 Dose: 81 mg Divalproex Sodium (Depakote Dr Tab) 125 mg PO BID [facility] Last Admin: 06/11/18 09:45 Dose: 125 mg Enoxaparin Sodium (Lovenox) 60 mg SC Q12 [facility] Last Admin: 06/11/18 09:46 Dose: Not Given Lorazepam (Ativan) 0.5 mg IVP Q6H PRN PRN Reason: Anxiety Last Admin: 06/11/18 12:30 Dose: 0.5 mg Quetiapine Fumarate (Seroquel) 50 mg PO HS [facility] Last Admin: 06/10/18 21:19 Dose: 50 mg Saccharomyces Boulardii (Florastor) 250 mg PO BID [facility] Last Admin: 06/11/18 09:45 Dose: 250 mg - Labs Labs: 06/08/18 11:50 06/08/18 11:50 - Additional Findings Additional findings: - Constitutional Appears: No Acute Distress, Cachectic - Head Exam Head Exam: ATRAUMATIC, NORMOCEPHALIC - Eye Exam Eye Exam: EOMI, Normal appearance - ENT Exam ENT Exam: Mucous Membranes Moist - Respiratory Exam Respiratory Exam: Clear to Ausculation Bilateral, NORMAL BREATHING PATTERN - Cardiovascular Exam Cardiovascular Exam: REGULAR RHYTHM, +S1, +S2 - GI/Abdominal Exam GI & Abdominal Exam: Soft. absent: Tenderness - Neurological Exam Neurological Exam: Alert - Skin Skin Exam: Dry, Warm Assessment and Plan - Assessment and Plan (Free Text) Plan: Severe Dementia 2/2 History traumatic brain injury * non verbal at baseline--> series a grunting, mobile, needs one-to-one attention * [facility] altered diet with thin liquids * 1:1 * valproic acid level <10 * restarted home med: Depakote 125mg po BID * Seroquel 50mg po HS * Ativan .5mg ivp q6h prn for agitation Hypernatremia-resolved * Attributed to poor poor oral intake and dehydration * Na+ 154 on admission-> now 140 * consult Dr. Santos, nephro, help appreciated * - May discontinue with 1/2 NS D5W as serum Na 140 now - Uosm 600 and serum osmoles 300 indicating appropriate response - Continue oral hydration and meals * Urine Osm 600, Urine Na 171, Urine potassium 32.1 New Onset A Fib- resolved * A fib seen on 1 EKG which is new * repeat EKG showed NSR. * consult cardio, Dr. Mar, help appreciated * currently in sinus rhythm. recommend lovenox while in the hospital. Patient is not ideal candidate for prison anticoagulation due to falls risk. * echo: left ventricle normal size, EF: 55-60%, left ventricular diastolic function is normal. mitral regurg is mild. mild tricuspid regurg. right ventricular systolic pressure is estimated at 27mmHg. No pulmonary hypertension. * TSH 0.44, free T4 0.95 * Negative JIM x 2 * ASA 81mg po daily Hematuria * 1+ blood on U/A * urine culture negative * renal u/s- renal disease, no obstruction Prophylaxis * SCDs * f/u case management for possible long-term placement- Patient does not have adequate care at home * PT/ OT * One-to-one * Lovenox 60mg SQ Q12hrs * Florastor DISPO: Patient stable for discharge as per Dr. Gagnon. Patient's is stating that she is unable to care for patient at this time due to her own health, per SHANIA. SHANIA working with case management for a solution for a safe discharge for patient. All medical management per Dr. Kalin Bucio Conchita PGY2
[2018-06-12] MEDS: Saccharomyces Boulardi 250 mg Cap PO SCH ×2 (10:17→18:17)
[2018-06-12] MEDS: Enoxaparin 60 mg Syringe SC SCH ×2 (10:17→22:20)
[2018-06-12] MEDS: Divalproex 125 mg DR Tab PO SCH ×2 (10:18→18:17)
--- NOTE | 2018-06-12 13:16 | CP.PCM.PN ---
Subjective - Date & Time of Evaluation Date of Evaluation: 06/12/18 Time of Evaluation: 07:00 - Subjective Subjective: PGY2 Medicine Note for Dr. Gagnon Patient seen and examined at bedside and in no acute distress. He is clinically unchanged. ROS unattainable. Objective - Vital Signs/Intake and Output Vital Signs (last 24 hours): Temp Pulse Resp BP Pulse Ox 97.8 F 112 H 20 116/25 L 95 06/12/18 08:16 06/12/18 08:16 06/12/18 08:16 06/12/18 08:16 06/12/18 08:16 Intake and Output: 06/12/18 06/12/18 06:59 18:59 Intake Total 480 Balance 480 - Medications Medications: Current Medications Aspirin (Aspirin Chewable) 81 mg PO DAILY [facility] Last Admin: 06/12/18 10:17 Dose: 81 mg Divalproex Sodium (Depakote Dr Tab) 125 mg PO BID [facility] Last Admin: 06/12/18 10:18 Dose: 125 mg Enoxaparin Sodium (Lovenox) 60 mg SC Q12 [facility] Last Admin: 06/12/18 10:17 Dose: 60 mg Lorazepam (Ativan) 0.5 mg IVP Q6H PRN PRN Reason: Anxiety Last Admin: 06/12/18 08:35 Dose: 0.5 mg Quetiapine Fumarate (Seroquel) 50 mg PO HS [facility] Last Admin: 06/11/18 21:57 Dose: 50 mg Saccharomyces Boulardii (Florastor) 250 mg PO BID [facility] Last Admin: 06/12/18 10:17 Dose: 250 mg - Labs Labs: 06/08/18 11:50 06/08/18 11:50 - Additional Findings Additional findings: - Constitutional Appears: No Acute Distress, Cachectic - Head Exam Head Exam: ATRAUMATIC, NORMOCEPHALIC - Eye Exam Eye Exam: EOMI, Normal appearance - ENT Exam ENT Exam: Mucous Membranes Moist - Respiratory Exam Respiratory Exam: Clear to Ausculation Bilateral, NORMAL BREATHING PATTERN - Cardiovascular Exam Cardiovascular Exam: REGULAR RHYTHM, +S1, +S2 - GI/Abdominal Exam GI & Abdominal Exam: Soft. absent: Tenderness - Neurological Exam Neurological Exam: Alert - Skin Skin Exam: Dry, Warm Assessment and Plan - Assessment and Plan (Free Text) Assessment: Severe Dementia 2/2 History traumatic brain injury * non verbal at baseline--> series a grunting, mobile, needs one-to-one attention * [facility] altered diet with thin liquids * 1:1 * valproic acid level <10 * restarted home med: Depakote 125mg po BID * Seroquel 50mg po HS * Ativan .5mg ivp q6h prn for agitation Hypernatremia-resolved * Attributed to poor poor oral intake and dehydration * Na+ 154 on admission-> now 140 * consult Dr. Santos, nephro, help appreciated * - May discontinue with 1/2 NS D5W as serum Na 140 now - Uosm 600 and serum osmoles 300 indicating appropriate response - Continue oral hydration and meals * Urine Osm 600, Urine Na 171, Urine potassium 32.1 New Onset A Fib- resolved * A fib seen on 1 EKG which is new * repeat EKG showed NSR. * consult cardio, Dr. Mar, help appreciated * currently in sinus rhythm. recommend lovenox while in the hospital. Patient is not ideal candidate for group home anticoagulation due to falls risk. * echo: left ventricle normal size, EF: 55-60%, left ventricular diastolic fu nction is normal. mitral regurg is mild. mild tricuspid regurg. right ventricular systolic pressure is estimated at 27mmHg. No pulmonary hypertension. * TSH 0.44, free T4 0.95 * Negative JIM x 2 * ASA 81mg po daily Hematuria * 1+ blood on U/A * urine culture negative * renal u/s- renal disease, no obstruction Prophylaxis * SCDs * f/u case management for possible half-way placement- Patient does not have adequate care at home * PT/ OT * One-to-one * Lovenox 60mg SQ Q12hrs * Florastor DISPO: Patient stable for discharge as per Dr. Gagnon. Patient's is stating that she is unable to care for patient at this time due to her own health, per SHANIA. SHANIA working with case management for a solution for a safe discharge for patient. All medical management per Dr. Gagnon
[2018-06-13 02:49] LABS: ARGININE VASOPRESSIN 14.9 pg/mL
[2018-06-13] MEDS: Saccharomyces Boulardi 250 mg Cap PO SCH ×2 (09:15→17:49)
[2018-06-13] MEDS: Enoxaparin 60 mg Syringe SC SCH ×2 (09:15→21:55)
[2018-06-13] MEDS: Divalproex 125 mg DR Tab PO SCH ×2 (09:15→17:49)
--- NOTE | 2018-06-13 11:02 | CP.PCM.PN ---
Subjective - Date & Time of Evaluation Date of Evaluation: 06/13/18 Time of Evaluation: 07:00 - Subjective Subjective: PGY2 Medicine Note for Dr. Gagnon Patient seen and examined at bedside and in no acute distress. He is clinically unchanged. ROS unattainable. Objective - Vital Signs/Intake and Output Vital Signs (last 24 hours): Temp Pulse Resp BP Pulse Ox 97.9 F 92 H 20 131/81 97 06/13/18 07:00 06/13/18 07:00 06/13/18 07:00 06/13/18 07:00 06/13/18 07:00 - Medications Medications: Current Medications Aspirin (Aspirin Chewable) 81 mg PO DAILY [facility] Last Admin: 06/13/18 09:15 Dose: 81 mg Divalproex Sodium (Depakote Dr Tab) 125 mg PO BID [facility] Last Admin: 06/13/18 09:15 Dose: 125 mg Enoxaparin Sodium (Lovenox) 60 mg SC Q12 [facility] Last Admin: 06/13/18 09:15 Dose: 60 mg Lorazepam (Ativan) 0.5 mg IVP Q6H PRN PRN Reason: Anxiety Last Admin: 06/13/18 06:46 Dose: 0.5 mg Quetiapine Fumarate (Seroquel) 50 mg PO HS [facility] Last Admin: 06/12/18 22:20 Dose: 50 mg Saccharomyces Boulardii (Florastor) 250 mg PO BID [facility] Last Admin: 06/13/18 09:15 Dose: 250 mg - Labs Labs: 06/08/18 11:50 06/08/18 11:50 - Additional Findings Additional findings: - Constitutional Appears: No Acute Distress, Cachectic - Head Exam Head Exam: ATRAUMATIC, NORMOCEPHALIC - Eye Exam Eye Exam: EOMI, Normal appearance - ENT Exam ENT Exam: Mucous Membranes Moist - Respiratory Exam Respiratory Exam: Clear to Ausculation Bilateral, NORMAL BREATHING PATTERN - Cardiovascular Exam Cardiovascular Exam: REGULAR RHYTHM, +S1, +S2 - GI/Abdominal Exam GI & Abdominal Exam: Soft. absent: Tenderness - Neurological Exam Neurological Exam: Alert - Skin Skin Exam: Dry, Warm Assessment and Plan - Assessment and Plan (Free Text) Assessment: Severe Dementia 2/2 History traumatic brain injury * non verbal at baseline--> series a grunting, mobile, needs one-to-one attention * [facility] altered diet with thin liquids * 1:1 * valproic acid level <10 * restarted home med: Depakote 125mg po BID * Seroquel 50mg po HS * Ativan .5mg ivp q6h prn for agitation Hypernatremia-resolved * Attributed to poor poor oral intake and dehydration * Na+ 154 on admission-> now 140 * consult Dr. Santos, nephro, help appreciated * - May discontinue with 1/2 NS D5W as serum Na 140 now - Uosm 600 and serum osmoles 300 indicating appropriate response - Continue oral hydration and meals * Urine Osm 600, Urine Na 171, Urine potassium 32.1 New Onset A Fib- resolved * A fib seen on 1 EKG which is new * repeat EKG showed NSR. * consult cardio, Dr. Mar, help appreciated * currently in sinus rhythm. recommend lovenox while in the hospital. Patient is not ideal candidate for shelter anticoagulation due to falls risk. * echo: left ventricle normal size, EF: 55-60%, left ventricular diastolic function is normal. mitral regurg is mild. mild tricuspid regurg. right ventricular systolic pressure is estimated at 27mmHg. No pulmonary hypertension. * TSH 0.44, free T4 0.95 * Negative JIM x 2 * ASA 81mg po daily Hematuria * 1+ blood on U/A * urine culture negative * renal u/s- renal disease, no obstruction Prophylaxis * SCDs * f/u case management for possible [facility] placement- Patient does not have adequate care at home * PT/ OT * One-to-one * Lovenox 60mg SQ Q12hrs * Florastor DISPO: Patient stable for discharge as per Dr. Gagnon. Patient's is stating that she is unable to care for patient at this time due to her own health, per SHANIA. SHANIA working with case management for a solution for a safe discharge for patient. All medical management per Dr. Gagnon
[2018-06-14] MEDS: Saccharomyces Boulardi 250 mg Cap PO SCH ×2 (10:05→18:50)
[2018-06-14] MEDS: Enoxaparin 60 mg Syringe SC SCH ×2 (10:05→22:00)
[2018-06-14] MEDS: Divalproex 125 mg DR Tab PO SCH ×2 (10:05→18:35)
--- NOTE | 2018-06-14 10:09 | CP.PCM.PN ---
Subjective - Date & Time of Evaluation Date of Evaluation: 06/14/18 Time of Evaluation: 10:08 - Subjective Subjective: PGY2 Medicine Note for Dr. Gagnon Patient seen and examined at bedside this morning. No acute events overnight. Clinically in no acute distress. He is clinically unchanged. ROS unattainable. Objective - Vital Signs/Intake and Output Vital Signs (last 24 hours): Temp Pulse Resp BP Pulse Ox 98.2 F 94 H 20 109/55 L 95 06/14/18 07:00 06/14/18 07:00 06/14/18 07:00 06/14/18 07:00 06/14/18 07:00 - Medications Medications: Current Medications Aspirin (Aspirin Chewable) 81 mg PO DAILY [facility] Last Admin: 06/14/18 10:05 Dose: 81 mg Divalproex Sodium (Depakote Dr Tab) 125 mg PO BID [facility] Last Admin: 06/14/18 10:05 Dose: 125 mg Enoxaparin Sodium (Lovenox) 60 mg SC Q12 [facility] Last Admin: 06/14/18 10:05 Dose: 60 mg Lorazepam (Ativan) 0.5 mg IVP Q6H PRN PRN Reason: Anxiety Last Admin: 06/13/18 18:45 Dose: 0.5 mg Quetiapine Fumarate (Seroquel) 50 mg PO HS [facility] Last Admin: 06/13/18 21:55 Dose: 50 mg Saccharomyces Boulardii (Florastor) 250 mg PO BID [facility] Last Admin: 06/14/18 10:05 Dose: 250 mg - Labs Labs: 06/08/18 11:50 06/08/18 11:50 - Additional Findings Additional findings: - Constitutional Appears: No Acute Distress, Cachectic - Head Exam Head Exam: ATRAUMATIC, NORMOCEPHALIC - Eye Exam Eye Exam: EOMI, Normal appearance - ENT Exam ENT Exam: Mucous Membranes Moist - Respiratory Exam Respiratory Exam: Clear to Ausculation Bilateral, NORMAL BREATHING PATTERN - Cardiovascular Exam Cardiovascular Exam: REGULAR RHYTHM, +S1, +S2 - GI/Abdominal Exam GI & Abdominal Exam: Soft. absent: Tenderness - Neurological Exam Neurological Exam: Alert - Skin Skin Exam: Dry, Warm Assessment and Plan - Assessment and Plan (Free Text) Plan: Severe Dementia 2/2 History traumatic brain injury * non verbal at baseline--> series a grunting, mobile, needs one-to-one attention * [facility] altered diet with thin liquids * 1:1 * valproic acid level <10 * restarted home med: Depakote 125mg po BID * Seroquel 50mg po HS * Ativan .5mg ivp q6h prn for agitation Hypernatremia-resolved * Attributed to poor poor oral intake and dehydration * Na+ 154 on admission-> now 140 * consult Dr. Santos, nephro, help appreciated * - May discontinue with 1/2 NS D5W as serum Na 140 now - Uosm 600 and serum osmoles 300 indicating appropriate response - Continue oral hydration and meals * Urine Osm 600, Urine Na 171, Urine potassium 32.1 New Onset A Fib- resolved * A fib seen on 1 EKG which is new * repeat EKG showed NSR. * consult cardio, Dr. Mar, help appreciated * currently in sinus rhythm. recommend lovenox while in the hospital. Patient is not ideal candidate for correction anticoagulation due to falls risk. * echo: left ventricle normal size, EF: 55-60%, left ventricular diastolic function is normal. mitral regurg is mild. mild tricuspid regurg. right ventricular systolic pressure is estimated at 27mmHg. No pulmonary hypertension. * TSH 0.44, free T4 0.95 * Negative JIM x 2 * ASA 81mg po daily Hematuria * 1+ blood on U/A * urine culture negative * renal u/s- renal disease, no obstruction Prophylaxis * SCDs * f/u case management for possible long term placement- Patient does not have adequate care at home * PT/ OT * One-to-one * Lovenox 60mg SQ Q12hrs * Florastor DISPO: Patient stable for discharge as per Dr. Gagnon. Patient's is stating that she is unable to care for patient at this time due to her own health, per SHANIA. SHANIA working with case management for a solution for a safe discharge for patient. All medical management per Dr. Gagnon
[2018-06-15] MEDS: Divalproex 125 mg DR Tab PO SCH ×2 (09:38→18:00)
[2018-06-15] MEDS: Saccharomyces Boulardi 250 mg Cap PO SCH ×2 (09:38→17:59)
[2018-06-15] MEDS: Enoxaparin 60 mg Syringe SC SCH ×2 (09:38→23:00)
[2018-06-16] MEDS: Divalproex 125 mg DR Tab PO SCH ×2 (09:36→18:17)
[2018-06-16] MEDS: Enoxaparin 60 mg Syringe SC SCH ×2 (09:36→22:19)
[2018-06-16] MEDS: Saccharomyces Boulardi 250 mg Cap PO SCH ×2 (09:36→18:17)
[2018-06-17] MEDS: Saccharomyces Boulardi 250 mg Cap PO SCH ×2 (09:10→18:04)
[2018-06-17] MEDS: Divalproex 125 mg DR Tab PO SCH ×2 (09:10→18:04)
[2018-06-17] MEDS: Enoxaparin 60 mg Syringe SC SCH ×2 (09:11→22:23)
--- NOTE | 2018-06-17 09:30 | CP.PCM.PN ---
Subjective - Date & Time of Evaluation Date of Evaluation: 06/17/18 Time of Evaluation: 07:00 - Subjective Subjective: PGY2 Medicine Note for Dr. Gagnon Patient seen and examined at bedside this morning. No acute events overnight. Clinically in no acute distress. He is clinically unchanged. ROS unattainable. Objective - Vital Signs/Intake and Output Vital Signs (last 24 hours): Temp Pulse Resp BP Pulse Ox 98.3 F 76 20 144/89 97 06/17/18 00:00 06/17/18 00:00 06/17/18 00:00 06/17/18 00:00 06/17/18 00:00 - Medications Medications: Current Medications Aspirin (Aspirin Chewable) 81 mg PO DAILY [facility] Last Admin: 06/17/18 09:10 Dose: 81 mg Divalproex Sodium (Depakote Dr Tab) 125 mg PO BID [facility] Last Admin: 06/17/18 09:10 Dose: 125 mg Enoxaparin Sodium (Lovenox) 60 mg SC Q12 [facility] Last Admin: 06/17/18 09:11 Dose: Not Given Lorazepam (Ativan) 0.5 mg IVP Q6H PRN PRN Reason: Anxiety Last Admin: 06/17/18 08:44 Dose: 0.5 mg Lorazepam (Ativan) 1 mg IVP Q6H PRN PRN Reason: Anxiety Quetiapine Fumarate (Seroquel) 50 mg PO HS [facility] Last Admin: 06/16/18 22:19 Dose: 50 mg Saccharomyces Boulardii (Florastor) 250 mg PO BID [facility] Last Admin: 06/17/18 09:10 Dose: 250 mg - Labs Labs: 06/08/18 11:50 06/08/18 11:50 - Additional Findings Additional findings: - Constitutional Appears: No Acute Distress, Cachectic - Head Exam Head Exam: ATRAUMATIC, NORMOCEPHALIC - Eye Exam Eye Exam: EOMI, Normal appearance - ENT Exam ENT Exam: Mucous Membranes Moist - Respiratory Exam Respiratory Exam: Clear to Ausculation Bilateral, NORMAL BREATHING PATTERN - Cardiovascular Exam Cardiovascular Exam: REGULAR RHYTHM, +S1, +S2 - GI/Abdominal Exam GI & Abdominal Exam: Soft. absent: Tenderness - Neurological Exam Neurological Exam: Alert - Skin Skin Exam: Dry, Warm Assessment and Plan - Assessment and Plan (Free Text) Assessment: Severe Dementia 2/2 History traumatic brain injury * non verbal at baseline--> series a grunting, mobile, needs one-to-one attention * [facility] altered diet with thin liquids * 1:1 * valproic acid level <10 * restarted home med: Depakote 125mg po BID * Seroquel 50mg po HS * Ativan .5mg ivp q6h prn for agitation Hypernatremia-resolved * Attributed to poor poor oral intake and dehydration * Na+ 154 on admission-> now 140 * consult Dr. Santos, nephro, help appreciated * - May discontinue with 1/2 NS D5W as serum Na 140 now - Uosm 600 and serum osmoles 300 indicating appropriate response - Continue oral hydration and meals * Urine Osm 600, Urine Na 171, Urine potassium 32.1 New Onset A Fib- resolved * A fib seen on 1 EKG which is new * repeat EKG showed NSR. * consult cardio, Dr. Mar, help appreciated * currently in sinus rhythm. recommend lovenox while in the hospital. Patient is not ideal candidate for skilled nursing anticoagulation due to falls risk. * echo: left ventricle normal size, EF: 55-60%, left ventricular diastolic function is normal. mitral regurg is mild. mild tricuspid regurg. right ventricular systolic pressure is estimated at 27mmHg. No pulmonary hypertension. * TSH 0.44, free T4 0.95 * Negative JIM x 2 * ASA 81mg po daily Hematuria * 1+ blood on U/A * urine culture negative * renal u/s- renal disease, no obstruction Prophylaxis * SCDs * f/u case management for possible halfway placement- Patient does not have adequate care at home * PT/ OT * One-to-one * Lovenox 60mg SQ Q12hrs * Florastor DISPO: Patient stable for discharge as per Dr. Gagnon. Patient's is stating that she is unable to care for patient at this time due to her own health, per SHANIA. SHANIA working with case management for a solution for a safe discharge for patient. All medical management per Dr. Gagnon
--- NOTE | 2018-06-18 08:31 | CP.PCM.PN ---
Subjective - Date & Time of Evaluation Date of Evaluation: 06/18/18 Time of Evaluation: 08:30 - Subjective Subjective: Medicine Progress Note - Dr Gagnon's Service Patient seen and examined at bedside. Objective - Vital Signs/Intake and Output Vital Signs (last 24 hours): Temp Pulse Resp BP Pulse Ox 97.8 F 73 20 152/84 H 100 06/17/18 23:35 06/18/18 05:10 06/18/18 05:10 06/18/18 05:10 06/17/18 23:35 Intake and Output: 06/18/18 06/18/18 06:59 18:59 Intake Total 730 Output Total 200 Balance 530 - Medications Medications: Current Medications Aspirin (Aspirin Chewable) 81 mg PO DAILY [facility] Last Admin: 06/17/18 09:10 Dose: 81 mg Divalproex Sodium (Depakote Dr Tab) 125 mg PO BID [facility] Last Admin: 06/17/18 18:04 Dose: 125 mg Enoxaparin Sodium (Lovenox) 60 mg SC Q12 [facility] Last Admin: 06/17/18 22:23 Dose: 60 mg Lorazepam (Ativan) 0.5 mg IVP Q6H PRN PRN Reason: MODERATE AGITATION Lorazepam (Ativan) 1 mg IVP Q6H PRN PRN Reason: SEVERE AGITATION Last Admin: 06/18/18 05:10 Dose: 1 mg Quetiapine Fumarate (Seroquel) 50 mg PO HS [facility] Last Admin: 06/17/18 22:23 Dose: 50 mg Saccharomyces Boulardii (Florastor) 250 mg PO BID [facility] Last Admin: 06/17/18 18:04 Dose: 250 mg - Labs Labs: 06/08/18 11:50 06/08/18 11:50
[2018-06-18] MEDS: Saccharomyces Boulardi 250 mg Cap PO SCH ×2 (10:39→18:09)
[2018-06-18] MEDS: Divalproex 125 mg DR Tab PO SCH ×2 (10:39→18:09)
[2018-06-18] MEDS: Enoxaparin 60 mg Syringe SC SCH ×2 (10:40→22:44)
--- NOTE | 2018-06-18 11:29 | CP.PCM.PN ---
Subjective - Date & Time of Evaluation Date of Evaluation: 06/18/18 Time of Evaluation: 11:29 - Subjective Subjective: Medicine Progress Note - Dr Gagnon's Service Patient seen and examined at bedside. Per nursing no acute events overnight. Clinically in no acute distress. He is clinically unchanged. ROS unattainable. Objective - Vital Signs/Intake and Output Vital Signs (last 24 hours): Temp Pulse Resp BP Pulse Ox 97.8 F 73 20 152/84 H 100 06/17/18 23:35 06/18/18 05:10 06/18/18 05:10 06/18/18 05:10 06/17/18 23:35 Intake and Output: 06/18/18 06/18/18 06:59 18:59 Intake Total 730 Output Total 200 Balance 530 - Medications Medications: Current Medications Aspirin (Aspirin Chewable) 81 mg PO DAILY [facility] Last Admin: 06/18/18 10:39 Dose: 81 mg Divalproex Sodium (Depakote Dr Tab) 125 mg PO BID [facility] Last Admin: 06/18/18 10:39 Dose: 125 mg Enoxaparin Sodium (Lovenox) 60 mg SC Q12 [facility] Last Admin: 06/18/18 10:40 Dose: 60 mg Lorazepam (Ativan) 0.5 mg IVP Q6H PRN PRN Reason: MODERATE AGITATION Lorazepam (Ativan) 1 mg IVP Q6H PRN PRN Reason: SEVERE AGITATION Last Admin: 06/18/18 10:35 Dose: 1 mg Quetiapine Fumarate (Seroquel) 50 mg PO HS [facility] Last Admin: 06/17/18 22:23 Dose: 50 mg Saccharomyces Boulardii (Florastor) 250 mg PO BID [facility] Last Admin: 06/18/18 10:39 Dose: 250 mg - Labs Labs: 06/08/18 11:50 06/08/18 11:50 - Additional Findings Additional findings: - Constitutional Appears: No Acute Distress, Cachectic - Head Exam Head Exam: ATRAUMATIC, NORMOCEPHALIC - Eye Exam Eye Exam: EOMI, Normal appearance - ENT Exam ENT Exam: Mucous Membranes Moist - Respiratory Exam Respiratory Exam: Clear to Ausculation Bilateral, NORMAL BREATHING PATTERN - Cardiovascular Exam Cardiovascular Exam: REGULAR RHYTHM, +S1, +S2 - GI/Abdominal Exam GI & Abdominal Exam: Soft. absent: Tenderness - Neurological Exam Neurological Exam: Alert - Skin Skin Exam: Dry, Warm Assessment and Plan - Assessment and Plan (Free Text) Assessment: Severe Dementia 2/2 History traumatic brain injury * non verbal at baseline--> series a grunting, mobile, needs one-to-one attention * [facility] altered diet with thin liquids * 1:1 * valproic acid level <10 * restarted home med: Depakote 125mg po BID * Seroquel 50mg po HS * Ativan 0.5mg ivp q6h prn for agitation Hypernatremia-resolved * Attributed to poor poor oral intake and dehydration * Na+ 154 on admission-> now 140 * consult Dr. Santos, nephro, help appreciated * - May discontinue with 1/2 NS D5W as serum Na 140 now - Uosm 600 and serum osmoles 300 indicating appropriate response - Continue oral hydration and meals * Urine Osm 600, Urine Na 171, Urine potassium 32.1 New Onset A Fib- resolved * A fib seen on 1 EKG which is new * repeat EKG showed NSR. * consult cardio, Dr. Mar, help appreciated * currently in sinus rhythm. recommend lovenox while in the hospital. Mirta ent is not ideal candidate for detention anticoagulation due to falls risk. * echo: left ventricle normal size, EF: 55-60%, left ventricular diastolic function is normal. mitral regurg is mild. mild tricuspid regurg. right ventricular systolic pressure is estimated at 27mmHg. No pulmonary hypertension. * TSH 0.44, free T4 0.95 * Negative JIM x 2 * ASA 81mg po daily Hematuria * 1+ blood on U/A * urine culture negative * renal u/s- renal disease, no obstruction Prophylaxis * SCDs * f/u case management for possible group home placement- Patient does not have adequate care at home * PT/ OT * One-to-one * Lovenox 60mg SQ Q12hrs * Florastor DISPO: Patient stable for discharge as per Dr. Gagnon. Patient's is stating that she is unable to care for patient at this time due to her own health, per SHANIA. SW working with case management for a solution for a safe discharge for patient. All medical management per Dr. Kalin Victoria DO PGY-2
[2018-06-19] MEDS: Divalproex 125 mg DR Tab PO SCH ×2 (10:53→18:53)
[2018-06-19] MEDS: Enoxaparin 60 mg Syringe SC SCH ×2 (10:54→21:52)
[2018-06-19] MEDS: Saccharomyces Boulardi 250 mg Cap PO SCH (10:55)
--- NOTE | 2018-06-19 16:14 | CP.PCM.PN ---
Subjective - Date & Time of Evaluation Date of Evaluation: 06/19/18 Time of Evaluation: 09:20 - Subjective Subjective: Medicine Progress Note - Dr Gagnon's Service Patient seen and examined at bedside. Per nursing no acute events overnight. Clinically in no acute distress. He is clinically unchanged. ROS unattainable. Objective - Vital Signs/Intake and Output Vital Signs (last 24 hours): Temp Pulse Resp BP Pulse Ox 97.2 F L 71 18 134/84 100 06/19/18 08:37 06/19/18 08:37 06/19/18 08:37 06/19/18 08:37 06/19/18 08:37 Intake and Output: 06/19/18 06/19/18 06:59 18:59 Intake Total 100 Balance 100 - Medications Medications: Current Medications Aspirin (Aspirin Chewable) 81 mg PO DAILY [facility] Last Admin: 06/19/18 10:53 Dose: 81 mg Divalproex Sodium (Depakote Dr Tab) 125 mg PO BID [facility] Last Admin: 06/19/18 10:53 Dose: 125 mg Enoxaparin Sodium (Lovenox) 60 mg SC Q12 [facility] Last Admin: 06/19/18 10:54 Dose: 60 mg Lorazepam (Ativan) 0.5 mg IVP Q6H PRN PRN Reason: MODERATE AGITATION Lorazepam (Ativan) 1 mg IVP Q6H PRN PRN Reason: SEVERE AGITATION Last Admin: 06/19/18 10:53 Dose: 1 mg Quetiapine Fumarate (Seroquel) 50 mg PO HS [facility] Last Admin: 06/18/18 22:44 Dose: Not Given - Labs Labs: 06/08/18 11:50 06/08/18 11:50 - Constitutional Appears: No Acute Distress - Head Exam Head Exam: ATRAUMATIC - Eye Exam Eye Exam: EOMI - ENT Exam ENT Exam: Mucous Membranes Dry - Respiratory Exam Respiratory Exam: NORMAL BREATHING PATTERN - Cardiovascular Exam Cardiovascular Exam: REGULAR RHYTHM, +S1, +S2 - GI/Abdominal Exam GI & Abdominal Exam: Soft, Normal Bowel Sounds - Extremities Exam Extremities Exam: Normal Inspection. absent: Calf Tenderness, Pedal Edema - Neurological Exam Neurological Exam: Alert, Awake. absent: Oriented x3 Assessment and Plan (1) Severe dementia Assessment & Plan: 2/2 History traumatic brain injury * non verbal at baseline--> series a grunting, mobile, needs one-to-one attention * [facility] * 1:1 * valproic acid level <10 * restarted home med: Depakote 125mg po BID * Seroquel 50mg po HS * Ativan 0.5mg ivp q6h prn for agitation Status: Acute (2) Hypernatremia Assessment & Plan: Attributed to poor poor oral intake and dehydration * Na+ 154 on admission-> now 140 * consult Dr. Santos, nephro, help appreciated * - May discontinue with 1/2 NS D5W as serum Na 140 now - Uosm 600 and serum osmoles 300 indicating appropriate response - Continue oral hydration and meals * Urine Osm 600, Urine Na 171, Urine potassium 32.1 Status: Acute (3) New onset atrial fibrillation Assessment & Plan: A fib seen on 1 EKG which is new * repeat EKG showed NSR. * consult cardio, Dr. Mar, help appreciated * currently in sinus rhythm. recommend lovenox while in the hospital. Patient is not ideal candidate for fci anticoagulation due to falls risk. * echo: left ventricle normal size, EF: 55-60%, left ventricular diastolic function is normal. mitral regurg is mild. mild tricuspid regurg. right ventricular systolic pressure is estimated at 27mmHg. No pulmonary hy pertension. * TSH 0.44, free T4 0.95 * Negative JIM x 2 * ASA 81mg po daily Status: Acute (4) Hematuria Assessment & Plan: * 1+ blood on U/A * urine culture negative * renal u/s- renal disease, no obstruction Status: Acute (5) Prophylactic measure Assessment & Plan: SCDs * f/u case management for possible senior care placement- Patient does not have adequate care at home * PT/ OT * One-to-one * Lovenox 60mg SQ Q12hrs * Florastor DISPO: Patient stable for discharge as per Dr. Gagnon. Patient's is stating that she is unable to care for patient at this time due to her own health, per SHANIA. SHANIA working with case management for a solution for a safe discharge for patient. All medical management per Dr. Gagnon Status: Acute
[2018-06-20] MEDS: Enoxaparin 60 mg Syringe SC SCH ×2 (12:21→21:08)
[2018-06-20] MEDS: Divalproex 125 mg DR Tab PO SCH ×2 (12:21→17:29)
[2018-06-21] MEDS: Divalproex 125 mg DR Tab PO SCH ×2 (10:06→17:55)
[2018-06-21] MEDS: Enoxaparin 60 mg Syringe SC SCH (10:07)
[2018-06-21 11:19] VITALS: RESP 20
[2018-06-21 11:43] LABS: BASO # 0.1 K/uL (0.0-0.2); BASO % 0.9 % (0.0-2.0); EOS % 0.5 % (0.0-4.0); HEMOGLOBIN 11.9 g/dL (12.0-18.0); LYMPH # 0.9 K/uL (1.0-4.3); LYMPH % 13.1 % (20.0-40.0); MEAN CELL VOLUME 85.4 fL (80.0-94.0); MEAN CORPUSCULAR HEMOGLOBIN 29.2 pg (27.0-31.0); MEAN CORPUSCULAR HGB CONC 34.2 g/dL (33.0-37.0); MEAN PLATELET VOLUME 9.6 fL (7.2-11.7); MONO # 0.7 K/uL (0.0-0.8); MONO % 9.5 % (0.0-10.0); NEUT # 5.5 K/uL (1.8-7.0); RBC 4.07 Mil/uL (4.40-5.90); RED CELL DISTRIBUTION WIDTH 14.5 % (11.5-14.5); WHITE BLOOD COUNT 7.2 K/uL (4.8-10.8)
[2018-06-21 12:33] LABS: ALBUMIN 3.6 g/dL (3.5-5.0); ALT/SGPT 21 U/L (21-72); AST/SGOT 26 U/L (17-59); BLOOD UREA NITROGEN 18 mg/dL (9-20); CALCIUM 8.9 mg/dl (8.6-10.4); GFR NON-AFRICAN AMERICAN > 60
--- NOTE | 2018-06-21 13:35 | CP.PCM.PN ---
<Jeanie Gramajo E - Last Filed: 06/21/18 15:07> Subjective - Date & Time of Evaluation Date of Evaluation: 06/21/18 Time of Evaluation: 07:25 - Subjective Subjective: Medicine Progress Note - Dr. Barraza covering for Dr. Gagnon Patient seen and examined at bedside. Per nursing no acute events overnight. Clinically in no acute distress. He is clinically unchanged. ROS unattainable. Objective - Vital Signs/Intake and Output Vital Signs (last 24 hours): Temp Pulse Resp BP Pulse Ox 98.2 F 91 H 20 111/64 98 06/21/18 08:00 06/21/18 08:00 06/21/18 08:00 06/21/18 08:00 06/21/18 08:00 - Medications Medications: Current Medications Aspirin (Aspirin Chewable) 81 mg PO DAILY [facility] Last Admin: 06/21/18 10:06 Dose: 81 mg Divalproex Sodium (Depakote Dr Tab) 125 mg PO BID [facility] Last Admin: 06/21/18 10:06 Dose: 125 mg Enoxaparin Sodium (Lovenox) 60 mg SC Q12 [facility] Last Admin: 06/21/18 10:07 Dose: 60 mg Lorazepam (Ativan) 0.5 mg IVP Q6H PRN PRN Reason: MODERATE AGITATION Lorazepam (Ativan) 1 mg IVP Q6H PRN PRN Reason: SEVERE AGITATION Last Admin: 06/21/18 07:15 Dose: 1 mg Lorazepam (Ativan) 1 mg IM Q6H PRN PRN Reason: Anxiety Last Admin: 06/21/18 12:45 Dose: 1 mg Quetiapine Fumarate (Seroquel) 50 mg PO HS [facility] Last Admin: 06/20/18 21:08 Dose: 50 mg - Labs Labs: 06/21/18 11:31 06/21/18 11:31 - Constitutional Appears: No Acute Distress - Head Exam Head Exam: ATRAUMATIC - Eye Exam Eye Exam: EOMI - Respiratory Exam Respiratory Exam: NORMAL BREATHING PATTERN - Cardiovascular Exam Cardiovascular Exam: REGULAR RHYTHM, +S1, +S2. absent: Murmur - GI/Abdominal Exam GI & Abdominal Exam: Soft, Normal Bowel Sounds. absent: Firm, Guarding, Rigid, Tenderness - Extremities Exam Extremities Exam: Normal Inspection. absent: Calf Tenderness, Pedal Edema Assessment and Plan (1) Severe dementia Assessment & Plan: 2/2 History traumatic brain injury * non verbal at baseline--> series a grunting, mobile, needs one-to-one attention * [facility] altered diet with thin liquids * 1:1 * valproic acid level <10 * restarted home med: Depakote 125mg po BID * Seroquel 50mg po HS * Ativan 0.5mg ivp q6h prn for agitation Status: Acute (2) Hypernatremia Assessment & Plan: Attributed to poor poor oral intake and dehydration * Na+ 154 on admission-> now 140 * consult Dr. Santos, nephro, help appreciated * - May discontinue with 1/2 NS D5W as serum Na 140 now - Uosm 600 and serum osmoles 300 indicating appropriate response - Continue oral hydration and meals * Urine Osm 600, Urine Na 171, Urine potassium 32.1 Status: Acute (3) New onset atrial fibrillation Assessment & Plan: A fib seen on 1 EKG which is new * repeat EKG showed NSR. * consult cardio, Dr. Mar, help appreciated * currently in sinus rhythm. recommend lovenox while in the hospital. Patient is not ideal candidate for fdc anticoagulation due to falls risk. * echo: left ventricle normal size, EF: 55-60%, left ventricular diastolic function is normal. mitral regurg is mild. mild tricuspid regurg. right ventricular systolic pressure is estimated at 27mmHg. No pulmonary hypertension. * TSH 0.44, free T4 0.95 * Negative JIM x 2 * ASA 81mg po daily Status: Acute (4) Hematuria Assessment & Plan: Resolved * 1+ blood on U/A * urine culture negative * renal u/s- renal disease, no obstruction Status: Acute (5) Prophylactic measure Assessment & Plan: SCDs * f/u case management for possible snf placement- Patient does not have adequate care at home * PT/ OT * One-to-one * Lovenox 60mg SQ Q12hrs * Florastor DISPO: Patient stable for discharge as per Dr. Gagnon. Patient's is stating that she is unable to care for patient at this time due to her own health, per SW. SW working with case management for a solution for a safe discharge for patient. Plans discussed with Dr. Barraza covering for Dr. Gagnon's service Status: Acute <Kimi Barraza V - Last Filed: 06/25/18 15:28> Objective - Vital Signs/Intake and Output Vital Signs (last 24 hours): Temp Pulse Resp BP Pulse Ox 9 F L 4 L 20 127/86 99 06/21/18 16:00 06/21/18 16:00 06/21/18 16:00 06/21/18 16:00 06/21/18 16:00 - Labs Labs: 06/21/18 11:31 06/21/18 11:31 Attending/Attestation - Attestation I have personally seen and examined this patient.: Yes I have fully participated in the care of the patient.: Yes I have reviewed all pertinent clinical information, including history, physical exam and plan: Yes Notes (Text): this is late computer entry for 06/21/18. Hospitalist Covering Dr Gagnon service Patient seen, examined and case discussed with day-time resident. Patient has been awaiting discharge since 06/14/18 from the hospital. Social and case management working on the case. Agree with the assessment/plan as documented by the resident.
--- NOTE | 2018-06-21 16:28 | RAD ---
Date of service: 06/21/2018 HISTORY: congestion COMPARISON: 06/02/2018. FINDINGS: LUNGS: The lungs are hyperinflated and there is peribronchial thickening with chronic changes in both lungs. PLEURA: No significant pleural effusion identified, no pneumothorax apparent. CARDIOVASCULAR: Normal. OSSEOUS STRUCTURES: There is diffuse bone demineralization. There is an old fracture deformity in the right posterior 9th rib. VISUALIZED UPPER ABDOMEN: Normal. OTHER FINDINGS: None. IMPRESSION: No active pulmonary disease. COPD.
[2018-06-21 17:16] VITALS: BP 127/86; PULSE 4; TEMP 9; O2SAT 99
--- NOTE | 2018-06-27 06:51 | DS ---
Patient is admitted to the hospital with chief complaint of altered mental status, weakness, fatigue, tiredness, and the patient has a long history of advanced dementia. The patient placed on bedrest, neuro check, CT of the head. No acute changes. The patient placed in complete bedrest and neuro check. Patient one-to-one . Family refuse to take the patient home. Patient . Patient transferred to facility for dementia patients. . Yaritza Gagnon MD
--- NOTE | 2018-06-27 06:53 | HP ---
HISTORY OF PRESENT ILLNESS: The patient chief complaint altered mental status, weakness, fatigue, tiredness. Patient dementia. PHYSICAL EXAMINATION: GENERAL: The patient is awake alert, and oriented. VITAL SIGNS: Temperature 98, pulse 90. HEENT: Within normal limits. NECK: Supple. CHEST: Symmetrical. HEART: Regular. ABDOMEN: Soft. EXTREMITIES: No edema. IMPRESSION AND PLAN: The patient suffers from dementia. The patient will be transferred to a boarding home for dementia patient. Yaritza Gagnon MD
== END 2018-06-21 20:13 | DRG 884 ==
LOC: C.ER 19:40 → C.9E 22:48 → C.6T 06-03 04:31 → C.5S 06-06 21:38
PROVIDERS: ADMIT Internal Medicine Pulmonary Disease; ATTEND Internal Medicine Pulmonary Disease
DX: F03.90 Unspecified dementia, unspecified severity, without behavioral disturbance, psychotic disturbance, mood disturbance, and anxiety (principal); E87.0 Hyperosmolality and hypernatremia; E86.0 Dehydration; I12.9 Hypertensive chronic kidney disease with stage 1 through stage 4 chronic kidney disease, or unspecified chronic kidney disease; I48.91 Unspecified atrial fibrillation; Z87.820 Personal history of traumatic brain injury; J44.9 Chronic obstructive pulmonary disease, unspecified; Z79.82 Long term (current) use of aspirin; I08.1 Rheumatic disorders of both mitral and tricuspid valves; G47.00 Insomnia, unspecified

== ENCOUNTER 2018-12-31 17:01 | Inpatient (IN) | payer MEDICARE, OTHER ==
[2018-12-31 17:04] VITALS: BMI 21.9
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
[2018-12-31] MEDS ORDERED: hydrOXYzine HCl 25 mg/ml Inj IM STA (18:45)
[2018-12-31 20:06] LABS: BASO % 0.6 % (0.0-2.0); EOS % 0.4 % (0.0-4.0); HEMOGLOBIN 13.2 g/dL (12.0-18.0); LYMPH # 2.3 K/uL (1.0-4.3); LYMPH % 28.8 % (20.0-40.0); MEAN CELL VOLUME 75.3 fL (80.0-94.0); MEAN CORPUSCULAR HGB CONC 31.9 g/dL (33.0-37.0); MEAN PLATELET VOLUME 9.3 fL (7.2-11.7); MONO # 0.7 K/uL (0.0-0.8); MONO % 8.3 % (0.0-10.0); NEUT % 61.9 % (50.0-75.0); RBC 5.52 Mil/uL (4.40-5.90); RED CELL DISTRIBUTION WIDTH 19.3 % (11.5-14.5); WHITE BLOOD COUNT 8.1 K/uL (4.8-10.8)
[2018-12-31 20:20] LABS: ALBUMIN 4.2 g/dL (3.5-5.0); ALT/SGPT 23 U/L (21-72); AST/SGOT 34 U/L (17-59); BLOOD UREA NITROGEN 38 mg/dL (9-20); CALCIUM 9.6 mg/dl (8.6-10.4); GFR NON-AFRICAN AMERICAN > 60
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
[2019-01-01] MEDS: Divalproex 125 mg DR Tab PO SCH ×2 (01:53→11:00)
--- NOTE | 2019-01-01 07:43 | RAD ---
Date of service: 12/31/2018 HISTORY: adm COMPARISON: None available. TECHNIQUE: 1 view obtained. FINDINGS: LUNGS: No active pulmonary disease. PLEURA: No significant pleural effusion identified, no pneumothorax apparent. CARDIOVASCULAR: No aortic atherosclerotic calcification present. Normal cardiac size. No pulmonary vascular congestion. OSSEOUS STRUCTURES: Old healed right 9th rib fracture again evident. VISUALIZED UPPER ABDOMEN: Normal. OTHER FINDINGS: None. IMPRESSION: No interval acute cardiopulmonary disease appreciated.
[2019-01-01 08:31] LABS: BASO % 0.4 % (0.0-2.0); EOS % 0.6 % (0.0-4.0); HEMOGLOBIN 13.1 g/dL (12.0-18.0); LYMPH # 1.4 K/uL (1.0-4.3); MEAN CELL VOLUME 75.4 fL (80.0-94.0); MEAN CORPUSCULAR HEMOGLOBIN 23.9 pg (27.0-31.0); MEAN CORPUSCULAR HGB CONC 31.7 g/dL (33.0-37.0); MEAN PLATELET VOLUME 9.4 fL (7.2-11.7); MONO # 0.6 K/uL (0.0-0.8); MONO % 7.5 % (0.0-10.0); NEUT # 5.6 K/uL (1.8-7.0); NEUT % 73.5 % (50.0-75.0); NRBC % 0.1 % (0.0-2.0); RBC 5.48 Mil/uL (4.40-5.90); RED CELL DISTRIBUTION WIDTH 19.7 % (11.5-14.5); WHITE BLOOD COUNT 7.6 K/uL (4.8-10.8)
[2019-01-01 08:55] LABS: ALB/GLOB RATIO 0.9 (1.0-2.1); ALBUMIN 3.9 g/dL (3.5-5.0); ALT/SGPT 15 U/L (21-72); AST/SGOT 39 U/L (17-59); BLOOD UREA NITROGEN 30 mg/dL (9-20); GFR NON-AFRICAN AMERICAN > 60
--- NOTE | 2019-01-01 09:35 | CP.PCM.PN ---
Subjective - Date & Time of Evaluation Date of Evaluation: 01/01/19 Time of Evaluation: 09:30 - Subjective Subjective: Medicine Progress Note for Dr. Madi Ramachandran DO, PGY-3 Patient seen and examined at bedside on the floors. Intermittently agitated and trying to get out of bed, requiring nursing to stop him. Nursing able to calm him down with intermittent snacks (applesauce and rony crackers). Non-verbal, grunting, and repeatedly shaking arms back and forth when trying to sit up/get out of bed. Not following commands. Does not appear to be in acute distress, but did urinate himself during repeat exam. Objective - Vital Signs/Intake and Output Vital Signs (last 24 hours): Temp Pulse Resp BP Pulse Ox 973 F H 90 20 119/73 100 01/01/19 07:00 01/01/19 07:00 01/01/19 07:00 01/01/19 07:00 01/01/19 08:41 Intake and Output: 01/01/19 01/01/19 06:59 18:59 Intake Total 600 Balance 600 - Medications Medications: Current Medications Aspirin (Aspirin Chewable) 81 mg PO DAILY [facility] Divalproex Sodium (Depakote Dr Tab) 125 mg PO BID [facility] Last Admin: 01/01/19 01:53 Dose: Not Given Donepezil HCl (Aricept) 5 mg PO DAILY [facility] Enoxaparin Sodium (Lovenox) 40 mg SC DAILY [facility] Dextrose (Dextrose 5% In Water 1000 Ml) 1,000 mls @ 75 mls/hr IV .[id number] [facility] Last Admin: 12/31/18 22:34 Dose: 75 mls/hr Memantine (Namenda) 5 mg PO DAILY [facility] Quetiapine Fumarate (Seroquel) 50 mg PO HS [facility] Last Admin: 01/01/19 01:53 Dose: Not Given - Labs Labs: 01/01/19 08:19 01/01/19 08:19 - Constitutional Appears: Non-toxic, No Acute Distress, Confused, Chronically Ill - Head Exam Head Exam: ATRAUMATIC, NORMOCEPHALIC - Eye Exam Eye Exam: EOMI (not following commands for proper EOMI assessment, but able to track staff throughout room). absent: Conjunctival injection, Scleral icterus Pupil Exam: absent: Irregular, Unequal - ENT Exam ENT Exam: Mucous Membranes Moist (eating applesauce at time of exam) - Neck Exam Neck Exam: absent: Lymphadenopathy, Thyromegaly - Respiratory Exam Respiratory Exam: Clear to Ausculation Bilateral, NORMAL BREATHING PATTERN. absent: Accessory Muscle Use, Chest Wall Tenderness, Decreased Breath Sounds, Rales, Rhonchi, Wheezes Additional comments: auscultory exam limited as not following commands, so not taking deep breaths for auscultation - Cardiovascular Exam Cardiovascular Exam: REGULAR RHYTHM, RRR, +S1, +S2. absent: Bradycardia, Tachycardia, Irregular Rhythm, JVD, +S4 - GI/Abdominal Exam GI & Abdominal Exam: Soft, Normal Bowel Sounds. absent: Distended, Firm, Rigid Additional comments: non-verbal, but no distress or complaint elicited with deep palpation of abdomen, so unlikely abdominal tenderness - Extremities Exam Additional comments: no pitting edema, but bruising and healing scabs along multiple regions of shins - Neurological Exam Additional comments: awake and alert, but not following commands, non-verbal shaking arms back and forth while trying to change position but appearance not consistent with essential or intention tremors moving all extremities spontaneously no gross focal deficit appreciated while observing spontaneous movements - Psychiatric Exam Additional comments: non-verbal, demented, agitated intermittently - Skin Skin Exam: Dry, Normal Color, Warm Additional comments: bruising/scabs along bilateral LE as documented in extremities exam Assessment and Plan - Assessment and Plan (Free Text) Assessment: This is a 63 yo M with PMH of TBI, Dementia, and intermittent hypernatremia presenting for new episode of hypernatremia and worsening agitation (including against family). Plan: 1) Hypernatremia -Na 156 on arrival, improved to 153 today -given dry appearance on admission, new microcytosis, and elevated BUN/Cr on arrival, suspect hypovolemic hypernatremia -d/c'ed D5W, started on 1/2 NS at 125cc/hr -f/u Na on tomorrow AM labs 2) Severe Dementia -non verbal at baseline -passed bedside swallow eval in E.D, tolerating applesauce/pudding/rony crackers currently -continue [facility] altered diet with thin liquids -valproic acid level low at 18.5 -continue Depakote 125mg po BID, Seroquel 50mg po HS, Donepizil 5mg PO DAILY, Memantine 5mg PO DAILY Noted episode of bradycardia to 54 overnight, if occurs again or becomes symptomatically adan, will need to hold Donepizil 3) Scrotal swelling -Scrotal US notable for bilateral hydrocele L>R -Pending UA, instructed nurses to attempt straight cath as pt incontinent of urine -covering empirically with rocephin pending UA 4) Placement - reports not able to care for him at home currently, looking for halfway placement, SW and CM following -PT/OT eval Ppx: SCDs and Lovenox SC 40mg for DVT, no indication for GI ppx at this time Patient seen, reviewed, and discussed with attending, Dr. Barraza.
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
[2019-01-01] MEDS ORDERED: Divalproex 125 mg Sprinkle Capsule PEG SCH (10:45)
[2019-01-01] MEDS: Enoxaparin 40 mg Syringe SC SCH (11:00)
--- NOTE | 2019-01-01 11:03 | US ---
Date of service: 01/01/2019 HISTORY: scrotal swelling TECHNIQUE: Realtime sonography through the scrotum with color and doppler flow. COMPARISON: Not available FINDINGS: RIGHT TESTICLE: Measures 4.3 x 1.8 x 2.4 cm. Homogeneous echotexture. No mass. Normal flow demonstrated. RIGHT EPIDIDYMIS: Normal size, morphology and vascularity. No mass. LEFT TESTICLE: Measures 4.6 x 2.1 x 2.7 cm. Homogeneous echotexture. No mass. Normal flow demonstrated. LEFT EPIDIDYMIS: Normal size and morphology. Epididymal cyst incidentally noted, 5 x 7 x 7 mm.No mass. HYDROCELE: Minimal right hydrocele. Large left hydrocele. VARICOCELE: None. OTHER FINDINGS: None. IMPRESSION: Bilateral hydrocele, left greater than right. Incidental small left epididymal cyst. Otherwise unremarkable.
[2019-01-01] MEDS: Divalproex 125 mg Sprinkle Capsule PO SCH ×2 (11:40→17:32)
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
[2019-01-01] MEDS: Sodium Chloride 0.45% 1,000 ML IV SCH ×2 (14:30→21:40)
[2019-01-01 14:50] LABS: URINE BACTERIA FEW (<OCC); URINE BILIRUBIN NEGATIVE (NEGATIVE); URINE BLOOD NEGATIVE (NEGATIVE); URINE CLARITY Hazy (Clear); URINE COLOR Yellow (YELLOW); URINE GLUCOSE (UA) NORMAL (Normal); URINE LEUKOCYTE ESTERASE TRACE Leu/uL (Negative); URINE PROTEIN NEGATIVE (NEGATIVE); URINE UROBILINOGEN NORMAL mg/dL (0.2-1.0)
--- NOTE | 2019-01-01 18:32 | CARD ---
APPROVED REPORT Date of service: 12/31/2018 EKG Measurement Heart [id number] <Conclusion> Normal sinus rhythm with sinus arrhythmia Normal ECG
[2019-01-02] MEDS: Sodium Chloride 0.45% 1,000 ML IV SCH (05:31)
[2019-01-02 07:14] LABS: BASO % 0.5 % (0.0-2.0); EOS # 0.1 K/uL (0.0-0.7); HEMOGLOBIN 12.3 g/dL (12.0-18.0); LYMPH # 1.9 K/uL (1.0-4.3); LYMPH % 30.7 % (20.0-40.0); MEAN CELL VOLUME 75.6 fL (80.0-94.0); MEAN CORPUSCULAR HEMOGLOBIN 24.5 pg (27.0-31.0); MEAN CORPUSCULAR HGB CONC 32.4 g/dL (33.0-37.0); MEAN PLATELET VOLUME 9.8 fL (7.2-11.7); MONO # 0.6 K/uL (0.0-0.8); MONO % 9.5 % (0.0-10.0); NEUT # 3.6 K/uL (1.8-7.0); NEUT % 57.3 % (50.0-75.0); RBC 5.03 Mil/uL (4.40-5.90); RED CELL DISTRIBUTION WIDTH 19.1 % (11.5-14.5); WHITE BLOOD COUNT 6.2 K/uL (4.8-10.8)
[2019-01-02 08:01] LABS: ALB/GLOB RATIO 0.9 (1.0-2.1); ALBUMIN 3.3 g/dL (3.5-5.0); ALT/SGPT 25 U/L (21-72); AST/SGOT 34 U/L (17-59); BLOOD UREA NITROGEN 26 mg/dL (9-20); CALCIUM 8.1 mg/dl (8.6-10.4); GFR NON-AFRICAN AMERICAN > 60
[2019-01-02] MEDS: Divalproex 125 mg Sprinkle Capsule PO SCH ×2 (09:32→17:59)
[2019-01-02] MEDS: Enoxaparin 40 mg Syringe SC SCH (09:32)
[2019-01-02] MEDS: cefTRIAXone IV 1 gm in Dextros 50 ML IVPB SCH (09:33)
--- NOTE | 2019-01-02 10:51 | CP.PCM.PN ---
Subjective - Date & Time of Evaluation Date of Evaluation: 01/02/19 Time of Evaluation: 07:30 - Subjective Subjective: Nephro Progress Note for Dr. Tom Ramachandran DO, PGY-3 Patient seen and examined at bedside. Sleeping comfortably, no discernable distress. Easily arousable but returns to somnolence rapidly. No acute events overnight reported. Objective - Vital Signs/Intake and Output Vital Signs (last 24 hours): Temp Pulse Resp BP Pulse Ox 97.9 F 70 20 123/74 97 01/02/19 07:00 01/02/19 07:00 01/02/19 07:00 01/02/19 07:00 01/02/19 07:00 Intake and Output: 01/02/19 01/02/19 06:59 18:59 Intake Total 1000 Balance 1000 - Medications Medications: Current Medications Aspirin (Aspirin Chewable) 81 mg PO DAILY [facility] Last Admin: 01/02/19 09:32 Dose: 81 mg Divalproex Sodium (Depakote Sprinkles) 125 mg PO BID [facility] Last Admin: 01/02/19 09:32 Dose: 125 mg Donepezil HCl (Aricept) 5 mg PO DAILY [facility] Last Admin: 01/02/19 09:32 Dose: 5 mg Enoxaparin Sodium (Lovenox) 40 mg SC DAILY [facility] Last Admin: 01/02/19 09:32 Dose: 40 mg Sodium Chloride (Sodium Chloride 0.45%) 1,000 mls @ 125 mls/hr IV .Q8H [facility] Last Admin: 01/02/19 05:31 Dose: Not Given Ceftriaxone Sodium (Rocephin Iv 1 Gm Duplex) 50 mls @ 100 mls/hr IVPB DAILY [facility]; Protocol Last Admin: 01/02/19 09:33 Dose: 100 mls/hr Memantine (Namenda) 5 mg PO DAILY [facility] Last Admin: 01/02/19 09:32 Dose: 5 mg Quetiapine Fumarate (Seroquel) 50 mg PO HS [facility] Last Admin: 01/01/19 21:40 Dose: 50 mg - Labs Labs: 01/02/19 06:56 01/02/19 06:56 - Additional Findings Additional findings: - Constitutional Appears: Non-toxic, Sleeping comfortably, Chronically Ill - Head Exam Head Exam: ATRAUMATIC, NORMOCEPHALIC - Eye Exam Eye Exam: Opens eyes when aroused, tracks toward stimuli, but then closes again almost immediately. absent: Conjunctival injection, Scleral icterus Pupil Exam: absent: Irregular, Unequal - ENT Exam ENT Exam: Mucous Membranes Moist - Neck Exam Neck Exam: absent: Lymphadenopathy - Respiratory Exam Respiratory Exam: Clear to Ausculation Bilateral, NORMAL BREATHING PATTERN. absent: Accessory Muscle Use, Decreased Breath Sounds, Rales, Rhonchi, Wheezes Additional comments: auscultory exam limited as not following commands, so not taking deep breaths for auscultation - Cardiovascular Exam Cardiovascular Exam: REGULAR RHYTHM, RRR, +S1, +S2. absent: Bradycardia, Tachycardia, Irregular Rhythm, JVD, +S4 - GI/Abdominal Exam GI & Abdominal Exam: Soft, Normal Bowel Sounds, non-verbal but no distress or complaint elicited with deep palpation of abdomen. absent: Distended, Firm, Rigid - Exam Scrotum diffusely swollen, non-erythematous, not excoriated - Extremities Exam no pitting edema, but bruising and healing scabs along multiple regions of shins - Neurological Exam awake and alert, but not following commands, non-verbal minimal spontaneous movements appreciated when aroused from sleep - Psychiatric Exam unable to assess due to somnolence/non-verbal - Skin Skin Exam: Dry, Normal Color, Warm, bruising/scabs along bilateral LE as documented in extremities exam Assessment and Plan - Assessment and Plan (Free Text) Assessment: This is a 63 yo M with PMH of TBI, Dementia, and intermittent hypernatremia presenting for new episode of hypernatremia and worsening agitation (including against family). Nephro was consulted for hypernatremia. Plan: 1) Hypernatremia - resolved 2) Dementia 3) TBI -Urine sodium 49 & urine Osms 639 on admission (serum osms not obtained) appears dehydrated, suspected hypovolemic hypernatremia improved from to 142, holding 1/2 NS IVF -Testicular US notable for bilateral hydrocele L>R On empiric rocephin as per primary team Patient reviewed and discussed with attending, Dr. Santos.
--- NOTE | 2019-01-02 11:56 | CP.PCM.PN ---
Subjective - Date & Time of Evaluation Date of Evaluation: 01/02/19 Time of Evaluation: 11:53 - Subjective Subjective: PGY 3 progress note for hospitalists (covering for Dr. Gagnon) Pt seen and examined at bedside. No acute events overnight. Patient is in bed, awake, not agitated. ROS unobtainable due to mental status. Objective - Vital Signs/Intake and Output Vital Signs (last 24 hours): Temp Pulse Resp BP Pulse Ox 97.9 F 70 20 123/74 97 01/02/19 07:00 01/02/19 07:00 01/02/19 07:00 01/02/19 07:00 01/02/19 07:00 Intake and Output: 01/02/19 01/02/19 06:59 18:59 Intake Total 1000 Balance 1000 - Medications Medications: Current Medications Aspirin (Aspirin Chewable) 81 mg PO DAILY [facility] Last Admin: 01/02/19 09:32 Dose: 81 mg Divalproex Sodium (Depakote Sprinkles) 125 mg PO BID [facility] Last Admin: 01/02/19 09:32 Dose: 125 mg Donepezil HCl (Aricept) 5 mg PO DAILY [facility] Last Admin: 01/02/19 09:32 Dose: 5 mg Enoxaparin Sodium (Lovenox) 40 mg SC DAILY [facility] Last Admin: 01/02/19 09:32 Dose: 40 mg Sodium Chloride (Sodium Chloride 0.45%) 1,000 mls @ 125 mls/hr IV .Q8H [facility] Last Admin: 01/02/19 05:31 Dose: Not Given Ceftriaxone Sodium (Rocephin Iv 1 Gm Duplex) 50 mls @ 100 mls/hr IVPB DAILY [facility]; Protocol Last Admin: 01/02/19 09:33 Dose: 100 mls/hr Memantine (Namenda) 5 mg PO DAILY [facility] Last Admin: 01/02/19 09:32 Dose: 5 mg Quetiapine Fumarate (Seroquel) 50 mg PO HS [facility] Last Admin: 01/01/19 21:40 Dose: 50 mg - Labs Labs: 01/02/19 06:56 01/02/19 06:56 - Constitutional Appears: Non-toxic, No Acute Distress - Head Exam Head Exam: ATRAUMATIC, NORMOCEPHALIC - ENT Exam ENT Exam: Mucous Membranes Moist - Respiratory Exam Respiratory Exam: Clear to Ausculation Bilateral. absent: Rales, Rhonchi, Wheezes - Cardiovascular Exam Cardiovascular Exam: REGULAR RHYTHM, +S1, +S2 - GI/Abdominal Exam GI & Abdominal Exam: Soft, Normal Bowel Sounds. absent: Distended, Firm, Guarding, Rigid, Tenderness - Exam Exam: Scrotal Swelling - Extremities Exam Extremities Exam: absent: Pedal Edema, Tenderness - Neurological Exam Neurological Exam: Awake. absent: Oriented x3 Additional comments: unable to answer questions or follow commands at baseline - Skin Skin Exam: Dry, Intact, Normal Color, Warm Assessment and Plan - Assessment and Plan (Free Text) Assessment: This is a 63 yo M with PMH of TBI, Dementia, and intermittent hypernatremia presenting for hypernatremia and worsening agitation (including against family). Plan: 1) Hypernatremia - Na this monring 142 (from 153 yesterday) - IV fluids on hold due to fast sodium correction. will recheck value in afternoon 2) Severe Dementia -non verbal at baseline -passed bedside swallow eval in E.D, tolerating applesauce/pudding/rony crackers currently -[facility] with thin liquids -valproic acid level low at 18.5 -continue Depakote 125mg po BID, Seroquel 50mg po HS, Donepizil 5mg PO DAILY, Memantine 5mg PO DAILY If becomes symptomatically bradicardic, will need to hold Donepizil 3) Scrotal swelling -Scrotal US notable for bilateral hydrocele L>R and incidental epidydmal cyst -Pending UA, instructed nurses to attempt straight cath as pt incontinent of u rine 4) UTI - UA positive with 7 WBC, +nitrates, +LE and few bacteria - Urine culture pending - rocephin IV 1 gm qd 4) Placement - reports not able to care for him at home currently -PT/OT eval - Case management consulted for longterm placement Ppx: SCDs and Lovenox SC 40mg for DVT, no indication for GI ppx at this time DNR/DNI Patient seen, reviewed, and discussed with attending, Dr. Barraza.
--- NOTE | 2019-01-03 07:16 | PCM.RRT ---
<Sotero Mckeon - Last Filed: 01/03/19 14:52> HAIR AND MAKEUP DESIGNER Nurses Assessment - Situation Date: 01/03/19 HAIR AND MAKEUP DESIGNER Location:: Med/Surg [employer] DESIGN[employer] Called By: RN New IV Insertion Tolerance: Good - Respiratory HAIR AND MAKEUP DESIGNER Delivery Method: Room Air - Diagnostic Test Ordered Chest X-Ray: Yes CT Scan: Yes I.Reason for HAIR AND MAKEUP DESIGNER - A) Acute Change in Patient: Subjective: Brief house resident note HAIR AND MAKEUP DESIGNER called this AM by RN for witnessed seizure-like activity. Per nurse, patient upper and lower extremities were "shaking" for ~10-15 seconds. No noted frothing, tongue biting, or eye rolling. Patient has known history of TBI, seizure disorder, non-verbal at baseline. 12 pt ROS unattainable due to patient's mental status. Vitals at onset of HAIR AND MAKEUP DESIGNER HR 87, BP 169/88, blood sugar 98, Temp 97 -elevate head of bed -suctioning prn -neurochecks -accuchecks q6 -CXR, CT head Neurology, Dr. Rodríguez consulted. recommend giving loading dose of depakote IV 1000 mg and continuing pt on 750 mg po bid. Video EEG for 24 hours -Will check blood, urine and sputum cultures -place pt on tele monitoring -will check prolactin and procalcitonin - Constitutional Additional Comments: non-verbal at baseline, no frothing at the mouth, no tongue biting, no eye rolli ng - Head Head Exam: ATRAUMATIC, NORMAL INSPECTION, NORMOCEPHALIC - Eyes Eye Exam: EOMI, Normal appearance, PERRL. absent: Nystagmus Additional Comments: eye tracking noted - Respiratory Exam Respiratory Exam: Clear to Ausculation Bilateral, NORMAL BREATHING PATTERN. absent: Accessory Muscle Use, Rales, Rhonchi, Wheezes, Respiratory Distress, Stridor - Cardiovascular Exam Cardiovascular Exam: REGULAR RHYTHM, +S1, +S2 - Neurological Exam Neurological Exam: Alert, Awake - Extremities Exam Extremities Exam: Normal Capillary Refill, Normal Inspection <Leroy Reno - Last Filed: 01/03/19 16:17> HAIR AND MAKEUP DESIGNER Nurses Assessment - Vital Signs Vital Signs: Rapid Response Vital Sign Blood Pressure 164/80 Pulse Rate 80 Respiratory Rate 18 Temperature 97.4 F Oxygen Saturation 98 - Vital Signs at end of HAIR AND MAKEUP DESIGNER Vital Signs at end of HAIR AND MAKEUP DESIGNER: Rapid Response End Vital Sign Blood Pressure 113/66 Pulse Rate 60 Respiratory Rate 18 Temperature 97.9 F O2 Sat by Pulse Oximetry 100 Attending/Attestation - Attestation I have personally seen and examined this patient.: Yes I have fully participated in the care of the patient.: Yes I have reviewed all pertinent clinical information, including history, physical exam and plan: Yes
[2019-01-03 07:33] LABS: BASO # 0.1 K/uL (0.0-0.2); BASO % 0.8 % (0.0-2.0); EOS # 0.1 K/uL (0.0-0.7); EOS % 1.8 % (0.0-4.0); HEMOGLOBIN 14.1 g/dL (12.0-18.0); LYMPH # 1.4 K/uL (1.0-4.3); MEAN CELL VOLUME 75.5 fL (80.0-94.0); MEAN CORPUSCULAR HEMOGLOBIN 24.3 pg (27.0-31.0); MEAN CORPUSCULAR HGB CONC 32.2 g/dL (33.0-37.0); MEAN PLATELET VOLUME 9.8 fL (7.2-11.7); MONO # 0.6 K/uL (0.0-0.8); MONO % 8.9 % (0.0-10.0); NEUT # 4.1 K/uL (1.8-7.0); NEUT % 65.5 % (50.0-75.0); RBC 5.77 Mil/uL (4.40-5.90); RED CELL DISTRIBUTION WIDTH 19.2 % (11.5-14.5); WHITE BLOOD COUNT 6.3 K/uL (4.8-10.8)
[2019-01-03 07:40] LABS: ALBUMIN 3.8 g/dL (3.5-5.0); ALT/SGPT 14 U/L (21-72); AST/SGOT 37 U/L (17-59); BLOOD UREA NITROGEN 18 mg/dL (9-20); CALCIUM 8.3 mg/dl (8.6-10.4); GFR NON-AFRICAN AMERICAN > 60
--- NOTE | 2019-01-03 08:05 | CP.PCM.PN ---
Subjective - Date & Time of Evaluation Date of Evaluation: 01/03/19 Time of Evaluation: 08:04 - Subjective Subjective: PGY3 progress note for hospitalists (covering for Dr. Gagnon) Pt seen and examined at bedside this morning. ASSISTANT FILM EDITOR called this morning for witnessed seizure like activity. Patient was evaluated at that time. Seizure like activity resolved. Vitals at the time were HR 87, BP 169/88, blood sugar 98, Temp 97. ROS unobtainable due to mental status. Objective - Vital Signs/Intake and Output Vital Signs (last 24 hours): Temp Pulse Resp BP Pulse Ox 98.7 F 61 20 128/66 95 01/02/19 23:30 01/02/19 23:30 01/02/19 23:30 01/02/19 23:30 01/02/19 23:30 Intake and Output: 01/03/19 01/03/19 06:59 18:59 Output Total 500 Balance -500 - Medications Medications: Current Medications Aspirin (Aspirin Chewable) 81 mg PO DAILY [facility] Last Admin: 01/02/19 09:32 Dose: 81 mg Divalproex Sodium (Depakote Sprinkles) 125 mg PO BID [facility] Last Admin: 01/02/19 17:59 Dose: 125 mg Donepezil HCl (Aricept) 5 mg PO DAILY [facility] Last Admin: 01/02/19 09:32 Dose: 5 mg Enoxaparin Sodium (Lovenox) 40 mg SC DAILY [facility] Last Admin: 01/02/19 09:32 Dose: 40 mg Sodium Chloride (Sodium Chloride 0.45%) 1,000 mls @ 125 mls/hr IV .Q8H [facility] Last Admin: 01/02/19 05:31 Dose: Not Given Ceftriaxone Sodium (Rocephin Iv 1 Gm Duplex) 50 mls @ 100 mls/hr IVPB DAILY [facility]; Protocol Last Admin: 01/02/19 09:33 Dose: 100 mls/hr Memantine (Namenda) 5 mg PO DAILY [facility] Last Admin: 01/02/19 09:32 Dose: 5 mg Quetiapine Fumarate (Seroquel) 50 mg PO HS [facility] Last Admin: 01/02/19 22:52 Dose: 50 mg - Labs Labs: 01/03/19 07:17 01/03/19 07:17 - Constitutional Appears: Non-toxic, No Acute Distress - Head Exam Head Exam: ATRAUMATIC, NORMOCEPHALIC - Eye Exam Eye Exam: EOMI - ENT Exam ENT Exam: Mucous Membranes Moist Additional comments: no tongue biting noted - Respiratory Exam Respiratory Exam: Clear to Ausculation Bilateral. absent: Rales, Rhonchi, Wheezes - Cardiovascular Exam Cardiovascular Exam: REGULAR RHYTHM, +S1, +S2 - GI/Abdominal Exam GI & Abdominal Exam: Soft, Normal Bowel Sounds. absent: Distended, Firm, Guarding, Rigid, Tenderness - Extremities Exam Extremities Exam: absent: Pedal Edema, Tenderness - Neurological Exam Neurological Exam: absent: Oriented x3 - Psychiatric Exam Psychiatric exam: Normal Affect, Normal Mood - Skin Skin Exam: Dry, Intact, Normal Color, Warm Assessment and Plan - Assessment and Plan (Free Text) Assessment: This is a 63 yo M with PMH of TBI, Dementia, and intermittent hypernatremia presenting for hypernatremia and worsening agitation (including against family). Plan: 1) Hypernatremia -resolved. 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 Seizure disorder - ASSISTANT FILM EDITOR this am for possible seizure - Neurology, Dr. Rodríguez consulted. recommend giving loading dose of depakote IV 1000 mg and continuing pt on 750 mg po bid. Video EEG for 24 hours - Will check head CT, CXR for possible aspiration - Seizure precautions, aspiration precautions - keep head of bed elevated to 30 degrees - Will check blood, urine and sputum cultures - place pt on tele monitoring - Will check prolactin and procalcitonin 3) Scrotal swelling -Scrotal US notable for bilateral hydrocele L>R and incidental epidydmal cyst 4) UTI - UA positive with 7 WBC, +nitrates, +LE and few bacteria - rocephin IV 1 gm qd 5) Placement - reports not able to care for him at home currently - PT/OT eval - Case management consulted for transfer and line up worker placement Ppx: SCDs and Lovenox SC 40mg for DVT, no indication for GI ppx at this time DNR/DNI Patient seen, reviewed, and discussed with attending, Dr. Barraza.
--- NOTE | 2019-01-03 08:27 | RAD ---
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 FINDINGS: LUNGS: No active pulmonary disease. PLEURA: No significant pleural effusion identified, no pneumothorax apparent. CARDIOVASCULAR: No aortic atherosclerotic calcification present. Normal cardiac size. No pulmonary vascular congestion. OSSEOUS STRUCTURES: No significant abnormalities. VISUALIZED UPPER ABDOMEN: Normal. OTHER FINDINGS: None. IMPRESSION: No active disease.
--- NOTE | 2019-01-03 08:39 | CT ---
Date of service: 01/03/2019 PROCEDURE: CT HEAD WITHOUT CONTRAST. 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 Radiation dose: Total exam DLP = 1168.96 mGy-cm. This CT exam was performed using one or more of the following dose reduction techniques: Automated exposure control, adjustment of the mA and/or kV according to patient size, and/or use of iterative reconstruction technique. FINDINGS: HEMORRHAGE: No intracranial hemorrhage. BRAIN: No mass effect or edema. Minimal age-appropriate diffuse cerebral atrophy. Mild periventricular white matter lucency consistent with chronic microvascular ischemic change. No evidence of acute infarct. VENTRICLES: Unremarkable. No hydrocephalus. CALVARIUM: Unremarkable. PARANASAL SINUSES: Mild chronic ethmoid and bilateral maxillary sinusitis. MASTOID AIR CELLS: Unremarkable as visualized. No inflammatory changes. OTHER FINDINGS: None. IMPRESSION: No intracranial mass, hemorrhage or evidence of acute infarct. Mild age-appropriate atrophy and chronic white matter ischemic change. Mild chronic paranasal sinusitis.
[2019-01-03] MEDS ORDERED: Valproate 1,000 MG in Sodium Chloride 0.9% 100 ML IVPB ONE (09:00)
--- NOTE | 2019-01-03 10:01 | CP.PCM.PN ---
<Michael Ramachandran - Last Filed: 01/03/19 13:26> Subjective - Date & Time of Evaluation Date of Evaluation: 01/03/19 Time of Evaluation: 07:15 - Subjective Subjective: Nephro Progress Note for Dr. Santos Service Michael Ramachandran DO, PGY-3 Patient seen and examined at bedside. Prior to exam, SENIOR RELIABILITY ENGINEER called for suspected seizure, however the activity resolved quickly. At time of exam (after SENIOR RELIABILITY ENGINEER), patient appears to be resting comfortably, opens eyes briefly during exam but closes them again, no agitation; unclear if post-ictal state. Objective - Vital Signs/Intake and Output Vital Signs (last 24 hours): Temp Pulse Resp BP Pulse Ox 98.7 F 61 20 128/66 95 01/02/19 23:30 01/02/19 23:30 01/02/19 23:30 01/02/19 23:30 01/02/19 23:30 Intake and Output: 01/03/19 01/03/19 06:59 18:59 Output Total 500 Balance -500 - Medications Medications: Current Medications Aspirin (Aspirin Chewable) 81 mg PO DAILY [facility] Last Admin: 01/02/19 09:32 Dose: 81 mg Divalproex Sodium (Depakote Sprinkles) 750 mg PO BID [facility] Donepezil HCl (Aricept) 5 mg PO DAILY [facility] Last Admin: 01/02/19 09:32 Dose: 5 mg Enoxaparin Sodium (Lovenox) 40 mg SC DAILY [facility] Last Admin: 01/02/19 09:32 Dose: 40 mg Sodium Chloride (Sodium Chloride 0.45%) 1,000 mls @ 125 mls/hr IV .Q8H [facility] Last Admin: 01/02/19 05:31 Dose: Not Given Ceftriaxone Sodium (Rocephin Iv 1 Gm Duplex) 50 mls @ 100 mls/hr IVPB DAILY [facility]; Protocol Last Admin: 01/02/19 09:33 Dose: 100 mls/hr Valproate Sodium 1,000 mg/ (Sodium Chloride) 110 mls @ 100 mls/hr IVPB ONCE ONE Stop: 01/03/19 10:05 Memantine (Namenda) 5 mg PO DAILY [facility] Last Admin: 01/02/19 09:32 Dose: 5 mg Quetiapine Fumarate (Seroquel) 50 mg PO HS [facility] Last Admin: 01/02/19 22:52 Dose: 50 mg - Labs Labs: 01/03/19 07:17 01/03/19 07:17 - Additional Findings Additional findings: - Constitutional Appears: Non-toxic, Chronically Ill, Resting vs Post-ictal at time of exam - Head Exam Head Exam: ATRAUMATIC, NORMOCEPHALIC - Eye Exam Eye Exam: Opened eyes briefly once during exam but then closed again almost immediately. absent: Conjunctival injection, Scleral icterus Pupil Exam: absent: Irregular, Unequal - ENT Exam ENT Exam: Mucous Membranes Moist - Neck Exam Neck Exam: absent: Lymphadenopathy - Respiratory Exam Respiratory Exam: Clear to Ausculation Bilateral, NORMAL BREATHING PATTERN. absent: Accessory Muscle Use, Decreased Breath Sounds, Rales, Rhonchi, Wheezes Additional comments: auscultory exam limited as not following commands, so not taking deep breaths for auscultation - Cardiovascular Exam Cardiovascular Exam: REGULAR RHYTHM, RRR, +S1, +S2. absent: Bradycardia, Tachycardia, Irregular Rhythm, JVD, +S4 - GI/Abdominal Exam GI & Abdominal Exam: Soft, Normal Bowel Sounds. absent: Distended, Firm, Rigid - Extremities Exam no pitting edema, but bruising and healing scabs along multiple regions of shins - Neurological Exam resting vs post-ictal, opens eyes briefly only once, otherwise unresponsive minimal spontaneous movements appreciated, mostly intermittent twitching of R forearm - Psychiatric Exam unable to assess - Skin Skin Exam: Dry, Normal Color, Warm, bruising/scabs along bilateral LE as documented in extremities exam Assessment and Plan - Assessment and Plan (Free Text) Assessment: This is a 63 yo M with PMH of TBI, Dementia, and intermittent hypernatremia presenting for new episode of hypernatremia and worsening agitation (including against family). Nephro was consulted for hypernatremia. Pt with possible seizure this AM. Plan: 1) Hypernatremia - resolved 2) Dementia 3) TBI 4) reported episode of seizure -Urine sodium 49 & urine Osms 639 on admission (serum osms not obtained) appeared dehydrated, suspected hypovolemic hypernatremia IVF on hold Na decreased from 142 to 139 today, f/u head CT to rule out cerebral edema 2/2 drop in Na don't believe this is the cause of possible seizure activity today, but continue to monitor closely; avoid further aggressive decreases in Na -Testicular US notable for bilateral hydrocele L>R On empiric rocephin as per primary team Cultures pending -Reported seizure activity this AM, resolved without acute intervention Agree with Neuro consult, appreciate their recs Of note, pt on home depakote, level on admission was low (18.5) Pending Head CT and CXR (to r/o aspiration) Patient reviewed and discussed with attending, Dr. Santos. <Israel Santos - Last Filed: 01/04/19 07:41> Objective - Vital Signs/Intake and Output Vital Signs (last 24 hours): Temp Pulse Resp BP Pulse Ox 98.4 F 72 18 131/77 100 01/03/19 23:48 01/03/19 23:48 01/03/19 23:48 01/03/19 23:48 01/03/19 23:48 Intake and Output: 01/04/19 01/04/19 06:59 18:59 Output Total 1 Balance -1 - Medications Medications: Current Medications Aspirin (Aspirin Chewable) 81 mg PO DAILY [facility] Last Admin: 01/03/19 10:16 Dose: 81 mg Divalproex Sodium (Depakote Sprinkles) 750 mg PO BID [facility] Last Admin: 01/03/19 17:22 Dose: 750 mg Donepezil HCl (Aricept) 5 mg PO DAILY [facility] Last Admin: 01/03/19 10:16 Dose: 5 mg Enoxaparin Sodium (Lovenox) 40 mg SC DAILY [facility] Last Admin: 01/03/19 10:16 Dose: 40 mg Sodium Chloride (Sodium Chloride 0.45%) 1,000 mls @ 125 mls/hr IV .Q8H [facility] Last Admin: 01/02/19 05:31 Dose: Not Given Ceftriaxone Sodium (Rocephin Iv 1 Gm Duplex) 50 mls @ 100 mls/hr IVPB DAILY [facility]; Protocol Last Admin: 01/03/19 10:58 Dose: 100 mls/hr Memantine (Namenda) 5 mg PO DAILY [facility] Last Admin: 01/03/19 10:16 Dose: 5 mg Quetiapine Fumarate (Seroquel) 50 mg PO HS [facility] Last Admin: 01/03/19 21:16 Dose: 50 mg - Labs Labs: 01/03/19 07:17 01/03/19 07:17 Attending/Attestation - Attestation I have personally seen and examined this patient.: Yes I have fully participated in the care of the patient.: Yes I have reviewed all pertinent clinical information, including history, physical exam and plan: Yes Notes (Text): Patient seen and examined; I agree with the resident's note as above with the following additions/edits: Patient being followed for hypernatremia which has resolved; currently off IVF; tolerates diet per nursing staff; question of whether patient had seizure today and whether it could have been related to rapid correction of hypernatremia; Hypernatremia was not very severe although it was corrected relatively rapidly; nevertheless, correction occurred day before yesterday and if any manifestations of ensuing cerebral edema were to occur, we should have seen it yesterday; currently patient seems at his baseline; for now, we will await neurology assessment.
[2019-01-03] MEDS: Divalproex 125 mg Sprinkle Capsule PO SCH ×2 (10:15→17:22)
[2019-01-03] MEDS: Enoxaparin 40 mg Syringe SC SCH (10:16)
[2019-01-03] MEDS: cefTRIAXone IV 1 gm in Dextros 50 ML IVPB SCH (10:58)
[2019-01-03 11:36] LABS: PROLACTIN 9.6 ng/mL (3.7-17.9)
--- NOTE | 2019-01-03 14:45 | CP.PCM.CON ---
History of Present Illness - History of Present Illness History of Present Illness: Neurology consult dictated. Patient with TBI and resulting posttraumatic epilepsy who was on subtherapeutic doses of depakote. Advise loading him with 1 gram depakote and continuing on 750 mg bid IV. VEEG ordered and pending. Thank you Dr. Rodríguez Neurology Past Patient History - Past Medical History & Family History Past Medical History?: Yes - Past Social History Smoking Status: Former Smoker - CARDIAC Hx Hypertension: Yes (spouse denies) - PULMONARY Hx Chronic Obstructive Pulmonary Disease (COPD): Yes - NEUROLOGICAL Hx Dementia: Yes - HEENT Hx HEENT Problems: No - RENAL Hx Chronic Kidney Disease: Yes - ENDOCRINE/METABOLIC Hx Endocrine Disorders: No - HEMATOLOGICAL/ONCOLOGICAL Hx Blood Disorders: No - INTEGUMENTARY Hx Dermatological Problems: No - MUSCULOSKELETAL/RHEUMATOLOGICAL Hx Falls: (unknown) - GASTROINTESTINAL Hx Gastrointestinal Disorders: Yes Hx Constipation: Yes - GENITOURINARY/GYNECOLOGICAL Hx Genitourinary Disorders: Yes Hx Incontinence: Yes - PSYCHIATRIC Hx Substance Use: No - SURGICAL HISTORY Hx Surgeries: Yes Hx Herniorrhaphy: Yes - ANESTHESIA Hx Anesthesia: Yes Hx Anesthesia Reactions: No Hx Malignant Hyperthermia: No Meds Allergies/Adverse Reactions: Allergies Allergy/AdvReac Type Severity Reaction Status Date / Time No Known Allergies Allergy Verified 12/31/18 17:03 - Medications Medications: Current Medications Aspirin (Aspirin Chewable) 81 mg PO DAILY [facility] Last Admin: 01/03/19 10:16 Dose: 81 mg Divalproex Sodium (Depakote Sprinkles) 750 mg PO BID [facility] Last Admin: 01/03/19 10:15 Dose: 750 mg Donepezil HCl (Aricept) 5 mg PO DAILY [facility] Last Admin: 01/03/19 10:16 Dose: 5 mg Enoxaparin Sodium (Lovenox) 40 mg SC DAILY [facility] Last Admin: 01/03/19 10:16 Dose: 40 mg Sodium Chloride (Sodium Chloride 0.45%) 1,000 mls @ 125 mls/hr IV .Q8H [facility] Last Admin: 01/02/19 05:31 Dose: Not Given Ceftriaxone Sodium (Rocephin Iv 1 Gm Duplex) 50 mls @ 100 mls/hr IVPB DAILY [facility]; Protocol Last Admin: 01/03/19 10:58 Dose: 100 mls/hr Memantine (Namenda) 5 mg PO DAILY [facility] Last Admin: 01/03/19 10:16 Dose: 5 mg Quetiapine Fumarate (Seroquel) 50 mg PO HS [facility] Last Admin: 01/02/19 22:52 Dose: 50 mg Results - Vital Signs Recent Vital Signs: Last Vital Signs Temp 97.9 F 01/03/19 08:00 Pulse 61 01/03/19 10:00 Resp 19 01/03/19 08:00 BP 113/66 01/03/19 08:00 Pulse Ox 100 01/03/19 08:00 - Labs Result Diagrams: 01/03/19 07:17 01/03/19 07:17 Labs: Laboratory Results - last 24 hr 01/03/19 01/03/19 01/03/19 07:09 07:17 07:17 WBC 6.3 RBC 5.77 Hgb 14.1 Hct 43.6 MCV 75.5 L MCH 24.3 L MCHC 32.2 L RDW 19.2 H Plt Count 152 MPV 9.8 Neut % (Auto) 65.5 Lymph % (Auto) 23.0 Jack % (Auto) 8.9 Eos % (Auto) 1.8 Baso % (Auto) 0.8 Neut # (Auto) 4.1 Lymph # (Auto) 1.4 Jack # (Auto) 0.6 Eos # (Auto) 0.1 Baso # (Auto) 0.1 Sodium 139 Potassium 4.4 Chloride 107 Carbon Dioxide 27 Anion Gap 9 L BUN 18 Creatinine 0.9 Est GFR ( Amer) > 60 Est GFR (Non-Af Amer) > 60 POC Glucose (mg/dL) 98 Random Glucose 73 L Calcium 8.3 L Phosphorus 3.1 Magnesium 1.9 Total Bilirubin 0.5 AST 37 ALT 14 L D Alkaline Phosphatase 71 Total Protein 7.4 Albumin 3.8 Globulin 3.6 Albumin/Globulin Ratio 1.0 Procalcitonin Prolactin 9.6 Phenytoin 01/03/19 01/03/19 01/03/19 08:18 08:18 11:23 WBC RBC Hgb Hct MCV MCH MCHC RDW Plt Count MPV Neut % (Auto) Lymph % (Auto) Jack % (Auto) Eos % (Auto) Baso % (Auto) Neut # (Auto) Lymph # (Auto) Jack # (Auto) Eos # (Auto) Baso # (Auto) Sodium Potassium Chloride Carbon Dioxide Anion Gap BUN Creatinine Est GFR ( Amer) Est GFR (Non-Af Amer) POC Glucose (mg/dL) 85 Random Glucose Calcium Phosphorus Magnesium Total Bilirubin AST ALT Alkaline Phosphatase Total Protein Albumin Globulin Albumin/Globulin Ratio Procalcitonin < 0.05 L Prolactin Phenytoin < 3.0 L
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
--- NOTE | 2019-01-04 07:10 | PCM.VEEG ---
Video EEG - Procedure Start Date: 01/03/19 Start Time: 13:55 End Date: 01/04/19 End Time: 06:50 Technical Summary: DATA ACQUISITION: This was a multichannel inpatient video-EEG, a minimum of 22 channels were uti lized, performed in accordance with recommendations specified by the [place] [employer] (Love Pollard et al. ACNS Guideline 1: Minimum Technical Requirements for Performing Clinical Electroencephalography. Journal of Clinical Neurophysiology 2016;33:303-7). The 10-20 electrode placement system was utilized in accordance with guidelines detailed by the International Federation of Clinical Neurophysiology (Hua Merritt et al. The Ten-Twenty Electrode System of the International Federation. Recommendations for the Practice of Clinical Neurophysiology: Guidelines of the International Federation of Clinical Physiology 1999; EEG Suppl. 52.). DATA REVIEW / SPIKE DETECTION / DIGITAL ANALYSIS: The entire EEG was scanned and reviewed. Synchronized audio and video recording were reviewed at the time of each alarm and whenever an abnormality or suspicious activity was noted. The entire recording was analyzed utilizing an automated digital spike and seizure analysis program and all automatic spike and seizure detections were manually reviewed. A compressed spectral array was displayed and reviewed alongside the raw EEG tracings. In addition, further analysis of the EEG was performed when abnormalities were identified, including montage changes, dipole source localization, and frequency band identification. This study was attended 24 hours per day. - Interpretation Description of the study: Indication; 63 y/o man with dementia and post traumatic epilepsy, admitted due to alter mental status, VEEG was requested due to concerns of ongoing subclinical seizures. EEG Finding during wakefulness: During active states, the EEG was characterized by 10-12 Hz, 15-30 uV activity bilaterally in fronto-central regions. Resting wakefulness was characterized by a symmetric posterior dominant rhythm of 7 to 8 Hz, 30-50 uV, which was reactive to eye opening and closing. Drowsiness was associated with slow roving eye movements, slowing and fragmentation of the posterior dominant rhythm, and bilateral 4-7 Hz, 40-70 uV theta activity, sometimes with a shifting predominance. There was intermittent bifrontal rhythmic delta slowing at 3 to 4 Hz lasting 3 to 6 seconds mainly seen during drowsiness occasionally during wakefulness. EEG Finding during sleep: Light sleep was recorded and was characterized by fronto-central slowing at 5-7 H, 50-125 uV, sharp central vertex waves, bilateral sleep spindles, and K- complexes; shifting asymmetries were evident. Vertex waves were often of higher amplitude on the right. Superimposition of waveform frequencies created the appearance of apiculate waveforms, which were not interpreted as pathologic spi ke-wave complexes. Deeper stages of sleep were recorded and were characterized an increasing frequency of 1-4 Hz, 50-100 uV delta activity. There were no significant asymmetries noted during sleep. Interictal non-epileptiform abnormalities: None Interictal epileptiform abnormalities: None Ictal epileptiform abnormalities: None - Impression Impression: This was an abnormal video EEG, monitoring study, due to the presence of: 1- Mild background slowing, diffuse attenuation, and EEG disorganization. No episodes were capture. Not in status epilepticus. INTERPRETATION: The above findings are in keeping with a mild to moderate non specific diffuse disturbance of cortical activity. This is in keeping with a diffuse howard matter dysfunction.. The findings do not suggest a specific etiology.
[2019-01-04 08:03] LABS: ALBUMIN 3.7 g/dL (3.5-5.0); ALT/SGPT 15 U/L (21-72); AST/SGOT 31 U/L (17-59); BLOOD UREA NITROGEN 16 mg/dL (9-20); CALCIUM 8.3 mg/dl (8.6-10.4); GFR NON-AFRICAN AMERICAN > 60
[2019-01-04 08:15] LABS: BASO % 0.2 % (0.0-2.0); EOS # 0.1 K/uL (0.0-0.7); EOS % 0.5 % (0.0-4.0); HEMOGLOBIN 13.4 g/dL (12.0-18.0); LYMPH # 1.2 K/uL (1.0-4.3); LYMPH % 10.8 % (20.0-40.0); MEAN CELL VOLUME 74.7 fL (80.0-94.0); MEAN CORPUSCULAR HEMOGLOBIN 24.8 pg (27.0-31.0); MEAN CORPUSCULAR HGB CONC 33.2 g/dL (33.0-37.0); MEAN PLATELET VOLUME 10.1 fL (7.2-11.7); MONO # 0.8 K/uL (0.0-0.8); MONO % 7.4 % (0.0-10.0); NEUT # 8.7 K/uL (1.8-7.0); NEUT % 81.1 % (50.0-75.0); NRBC % 0.2 % (0.0-2.0); RBC 5.41 Mil/uL (4.40-5.90); RED CELL DISTRIBUTION WIDTH 19.2 % (11.5-14.5); WHITE BLOOD COUNT 10.8 K/uL (4.8-10.8)
[2019-01-04] MEDS: Divalproex 125 mg Sprinkle Capsule PO SCH ×2 (09:25→17:00)
[2019-01-04] MEDS: Enoxaparin 40 mg Syringe SC SCH (09:25)
[2019-01-04] MEDS: cefTRIAXone IV 1 gm in Dextros 50 ML IVPB SCH (09:32)
--- NOTE | 2019-01-04 13:40 | CP.PCM.PN ---
Subjective - Date & Time of Evaluation Date of Evaluation: 01/04/19 Time of Evaluation: 13:40 - Subjective Subjective: Progress note for hospitalists (covering for Dr. Gagnon) Pt seen and examined at bedside. No acute events overnight. Pt is sleeping c omfortably and awakes with sternal rub. ROS unobtainable due to mental status. Objective - Vital Signs/Intake and Output Vital Signs (last 24 hours): Temp Pulse Resp BP Pulse Ox 98.7 F 69 20 118/70 96 01/04/19 07:00 01/04/19 10:00 01/04/19 07:00 01/04/19 07:00 01/04/19 07:00 Intake and Output: 01/04/19 01/04/19 06:59 18:59 Output Total 1 Balance -1 - Medications Medications: Current Medications Aspirin (Aspirin Chewable) 81 mg PO DAILY [facility] Last Admin: 01/04/19 09:25 Dose: 81 mg Divalproex Sodium (Depakote Sprinkles) 750 mg PO BID [facility] Last Admin: 01/04/19 09:25 Dose: 750 mg Donepezil HCl (Aricept) 5 mg PO DAILY [facility] Last Admin: 01/04/19 09:25 Dose: 5 mg Enoxaparin Sodium (Lovenox) 40 mg SC DAILY [facility] Last Admin: 01/04/19 09:25 Dose: 40 mg Sodium Chloride (Sodium Chloride 0.45%) 1,000 mls @ 125 mls/hr IV .Q8H [facility] Last Admin: 01/02/19 05:31 Dose: Not Given Ceftriaxone Sodium (Rocephin Iv 1 Gm Duplex) 50 mls @ 100 mls/hr IVPB DAILY [facility]; Protocol Stop: 01/05/19 10:01 Last Admin: 01/04/19 09:32 Dose: 100 mls/hr Memantine (Namenda) 5 mg PO DAILY [facility] Last Admin: 01/04/19 09:25 Dose: 5 mg Quetiapine Fumarate (Seroquel) 50 mg PO HS [facility] Last Admin: 01/03/19 21:16 Dose: 50 mg - Labs Labs: 01/04/19 07:32 01/04/19 07:32 - Constitutional Appears: Non-toxic, No Acute Distress - Head Exam Head Exam: ATRAUMATIC, NORMOCEPHALIC - ENT Exam ENT Exam: Mucous Membranes Moist - Respiratory Exam Respiratory Exam: Clear to Ausculation Bilateral. absent: Rales, Rhonchi, Wheezes - Cardiovascular Exam Cardiovascular Exam: REGULAR RHYTHM, +S1, +S2. absent: Gallop, Rubs, Murmur - GI/Abdominal Exam GI & Abdominal Exam: Soft, Normal Bowel Sounds. absent: Distended, Firm, Guarding, Rigid, Tenderness, Organomegaly - Extremities Exam Extremities Exam: absent: Pedal Edema, Tenderness - Neurological Exam Neurological Exam: absent: Alert, Awake, Oriented x3 - Psychiatric Exam Psychiatric exam: Normal Affect, Normal Mood - Skin Skin Exam: Dry, Intact, Normal Color, Warm Assessment and Plan - Assessment and Plan (Free Text) Assessment: This is a 63 yo M with PMH of TBI, Dementia, and intermittent hypernatremia presenting for hypernatremia and worsening agitation (including against family). Plan: 1) Hypernatremia -resolved. will continue to monitor as patient has hx of intermittent hypernatremia 2) Severe Dementia 2/2 TBI -non-verbal at baseline -passed bedside swallow eval in E.D, tolerating applesauce/pudding/rony crackers currently -continue [facility] altered diet with thin liquids -Accuchecks Q6 - Aricept 5 mg po qd - Namenda 5 mg po qd - Seroquel 50 mg po HS 3. Seizure disorder - Neurology, Dr. Rodríguez consulted. 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 Barraza.
[2019-01-05] MEDS: cefTRIAXone IV 1 gm in Dextros 50 ML IVPB SCH (10:30)
[2019-01-05] MEDS: Divalproex 125 mg Sprinkle Capsule PO SCH ×2 (10:31→17:41)
[2019-01-05] MEDS: Enoxaparin 40 mg Syringe SC SCH (10:32)
--- NOTE | 2019-01-05 12:03 | CP.PCM.PN ---
Subjective - Date & Time of Evaluation Date of Evaluation: 01/05/19 Time of Evaluation: 12:01 - Subjective Subjective: PGY3 progress note for hospitalists Pt seen and examined at bedside. No acute events overnight. Pt agitated htis am but resting comfortably now. Objective - Vital Signs/Intake and Output Vital Signs (last 24 hours): Temp Pulse Resp BP Pulse Ox 97.9 F 92 H 20 164/89 H 94 L 01/05/19 07:40 01/05/19 07:40 01/05/19 07:40 01/05/19 07:40 01/05/19 07:40 - Medications Medications: Current Medications Aspirin (Aspirin Chewable) 81 mg PO DAILY [facility] Last Admin: 01/05/19 10:31 Dose: 81 mg Divalproex Sodium (Depakote Sprinkles) 750 mg PO BID [facility] Last Admin: 01/05/19 10:31 Dose: 750 mg Donepezil HCl (Aricept) 5 mg PO DAILY [facility] Last Admin: 01/05/19 10:31 Dose: 5 mg Enoxaparin Sodium (Lovenox) 40 mg SC DAILY [facility] Last Admin: 01/05/19 10:32 Dose: 40 mg Memantine (Namenda) 5 mg PO DAILY [facility] Last Admin: 01/05/19 10:31 Dose: 5 mg Quetiapine Fumarate (Seroquel) 50 mg PO HS [facility] Last Admin: 01/04/19 21:51 Dose: 50 mg - Labs Labs: 01/04/19 07:32 01/04/19 07:32 - Constitutional Appears: Non-toxic, No Acute Distress - Head Exam Head Exam: ATRAUMATIC, NORMOCEPHALIC - ENT Exam ENT Exam: Mucous Membranes Moist - Respiratory Exam Respiratory Exam: Clear to Ausculation Bilateral. absent: Accessory Muscle Use, Rales, Rhonchi, Wheezes, Respiratory Distress - Cardiovascular Exam Cardiovascular Exam: REGULAR RHYTHM, +S1, +S2. absent: Gallop, Rubs, Murmur - GI/Abdominal Exam GI & Abdominal Exam: Soft, Normal Bowel Sounds. absent: Distended, Firm, Guard ing, Rigid, Tenderness - Extremities Exam Extremities Exam: absent: Pedal Edema, Tenderness - Neurological Exam Neurological Exam: absent: Alert, Awake, Oriented x3 - Psychiatric Exam Psychiatric exam: absent: Normal Affect, Normal Mood - Skin Skin Exam: Dry, Intact, Normal Color, Warm Assessment and Plan - Assessment and Plan (Free Text) Assessment: This is a 63 yo M with PMH of TBI, Dementia, and intermittent hypernatremia presenting for hypernatremia and worsening agitation (including against family). Plan: 1) Hypernatremia -resolved. will continue to monitor as patient has hx of intermittent hypernatremia 2) Severe Dementia 2/2 TBI -non-verbal at baseline -passed bedside swallow eval in E.D, tolerating applesauce/pudding/rony crackers currently -[facility] altered diet with thin liquids -Accuchecks Q6 - Aricept 5 mg po qd - Namenda 5 mg po qd - Seroquel 50 mg po HS 3. Seizure disorder - Neurology, Dr. Rodríguez consulted. - Depakote 750 mg po BID - CT of head showed no acute bleed - CXR showed o active pulm dz - Seizure precautions, aspiration precautions - keep head of bed elevated to 30 degrees 3) Scrotal swelling -Scrotal US notable for bilateral hydrocele L>R and incidental epidydmal cyst 4) UTI - UA positive with 7 WBC, +nitrates, +LE and few bacteria - rocephin IV 1 gm qd 5) Placement - Will discuss with CM and SW on Sunday about discharge planning - PT/OT eval Ppx: SCDs and Lovenox SC 40mg for DVT, no indication for GI ppx at this time DNR/DNI Patient seen, reviewed, and discussed with attending, Dr. Barraza.
[2019-01-06 08:24] VITALS: RESP 20
[2019-01-06 08:43] LABS: HEMOGLOBIN 13.1 g/dL (12.0-18.0); MEAN CELL VOLUME 75.2 fL (80.0-94.0); MEAN CORPUSCULAR HEMOGLOBIN 24.7 pg (27.0-31.0); MEAN CORPUSCULAR HGB CONC 32.9 g/dL (33.0-37.0); MEAN PLATELET VOLUME 10.3 fL (7.2-11.7); RBC 5.3 Mil/uL (4.40-5.90); WHITE BLOOD COUNT 6.1 K/uL (4.8-10.8)
[2019-01-06 09:00] LABS: BLOOD UREA NITROGEN 22 mg/dL (9-20); GFR NON-AFRICAN AMERICAN > 60
--- NOTE | 2019-01-06 09:48 | CP.PCM.PN ---
Subjective - Date & Time of Evaluation Date of Evaluation: 01/06/19 Time of Evaluation: 08:45 - Subjective Subjective: Nephro Progress Note for Dr. Tom Ramachandran DO, PGY-3 Patient seen and examined at bedside. Resting comfortably, being fed applesauce by nursing and tolerating well. No further cover seamer over the weekend, no further seizures reported. Na improved to 144 today. Still pending placement as per primary team. Objective - Vital Signs/Intake and Output Vital Signs (last 24 hours): Temp Pulse Resp BP Pulse Ox 97.2 F L 58 L 20 118/66 100 01/06/19 08:00 01/06/19 08:00 01/06/19 08:00 01/06/19 08:00 01/06/19 08:00 Intake and Output: 01/06/19 01/06/19 06:59 18:59 Intake Total 240 Balance 240 - Medications Medications: Current Medications Aspirin (Aspirin Chewable) 81 mg PO DAILY [facility] Last Admin: 01/05/19 10:31 Dose: 81 mg Divalproex Sodium (Depakote Sprinkles) 750 mg PO BID [facility] Last Admin: 01/05/19 17:41 Dose: 750 mg Donepezil HCl (Aricept) 5 mg PO DAILY [facility] Last Admin: 01/05/19 10:31 Dose: 5 mg Enoxaparin Sodium (Lovenox) 40 mg SC DAILY [facility] Last Admin: 01/05/19 10:32 Dose: 40 mg Memantine (Namenda) 5 mg PO DAILY [facility] Last Admin: 01/05/19 10:31 Dose: 5 mg Quetiapine Fumarate (Seroquel) 50 mg PO [facility] Last Admin: 01/05/19 21:45 Dose: 50 mg - Labs Labs: 01/06/19 08:35 01/06/19 08:35 - Additional Findings Additional findings: - Constitutional Appears: Non-toxic, Chronically Ill, Resting comfortably - Head Exam Head Exam: ATRAUMATIC, NORMOCEPHALIC - Eye Exam Eye Exam: Tracks staff in room. absent: Conjunctival injection, Scleral icterus Pupil Exam: absent: Irregular, Unequal - ENT Exam ENT Exam: Mucous Membranes Moist - Neck Exam Neck Exam: absent: Lymphadenopathy - Respiratory Exam Respiratory Exam: Clear to Ausculation Bilateral, NORMAL BREATHING PATTERN. absent: Accessory Muscle Use, Decreased Breath Sounds, Rales, Rhonchi, Wheezes Additional comments: auscultory exam limited as not following commands, so not taking deep breaths for auscultation - Cardiovascular Exam Cardiovascular Exam: REGULAR RHYTHM, RRR, +S1, +S2. absent: Bradycardia, Tachycardia, Irregular Rhythm, JVD, +S4 - GI/Abdominal Exam GI & Abdominal Exam: Soft, Normal Bowel Sounds. absent: Distended, Firm, Rigid - Extremities Exam no pitting edema, but bruising and healing scabs along multiple regions of shins - Neurological Exam tracking staff in room with eyes, but non-verbal and not following commands minimal spontaneous movements appreciated, mostly intermittent twitching of R forearm - Psychiatric Exam unable to assess - Skin Skin Exam: Dry, Normal Color, Warm, bruising/scabs along bilateral LE as documented in extremities exam Assessment and Plan - Assessment and Plan (Free Text) Assessment: This is a 63 yo M with PMH of TBI, Dementia, and intermittent hypernatremia presenting for new episode of hypernatremia and worsening agitation (including against family). Nephro was consulted for hypernatremia. Plan: 1) Hypernatremia - resolved 2) Dementia 3) TBI 4) reported episode of seizure -Urine sodium 49 & urine Osms 639 on admission (serum osms not obtained) appeared dehydrated, suspected hypovolemic hypernatremia Na 144 today (was 139), off IVF and tolerating PO intake, recommend increased PO water intake -Testicular US notable for bilateral hydrocele L>R Cultures negative, off empiric abx -Reported seizure activity this AM, resolved without acute intervention, no further recurrence As per Neuro, Depakote 750mg PO BID Patient reviewed and discussed with attending, Dr. Santos.
[2019-01-06] MEDS: Enoxaparin 40 mg Syringe SC SCH (10:11)
[2019-01-06] MEDS: Divalproex 125 mg Sprinkle Capsule PO SCH ×2 (10:12→19:00)
--- NOTE | 2019-01-06 11:19 | CP.PCM.PN ---
Subjective - Date & Time of Evaluation Date of Evaluation: 01/06/19 Time of Evaluation: 09:40 - Subjective Subjective: Medicine Progress Note for Dr. Gagnon Patient seen and examined at bedside. No acute events overnight. Patient is resting in bed comfortably. Unable to obtain further ROS due to mental status. Objective - Vital Signs/Intake and Output Vital Signs (last 24 hours): Temp Pulse Resp BP Pulse Ox 97.2 F L 58 L 20 118/66 100 01/06/19 08:00 01/06/19 08:00 01/06/19 08:00 01/06/19 08:00 01/06/19 08:00 Intake and Output: 01/06/19 01/06/19 06:59 18:59 Intake Total 240 Balance 240 - Medications Medications: Current Medications Aspirin (Aspirin Chewable) 81 mg PO DAILY [facility] Last Admin: 01/06/19 10:11 Dose: 81 mg Divalproex Sodium (Depakote Sprinkles) 750 mg PO BID [facility] Last Admin: 01/06/19 10:12 Dose: 750 mg Donepezil HCl (Aricept) 5 mg PO DAILY [facility] Last Admin: 01/06/19 10:15 Dose: 5 mg Enoxaparin Sodium (Lovenox) 40 mg SC DAILY [facility] Last Admin: 01/06/19 10:11 Dose: 40 mg Memantine (Namenda) 5 mg PO DAILY [facility] Last Admin: 01/06/19 10:15 Dose: 5 mg Quetiapine Fumarate (Seroquel) 50 mg PO HS [facility] Last Admin: 01/05/19 21:45 Dose: 50 mg - Labs Labs: 01/06/19 08:35 01/06/19 08:35 - Additional Findings Additional findings: - Constitutional Appears: Non-toxic, No Acute Distress - Head Exam Head Exam: ATRAUMATIC, NORMOCEPHALIC - ENT Exam ENT Exam: Mucous Membranes Moist - Respiratory Exam Respiratory Exam: Clear to Ausculation Bilateral. absent: Rales, Rhonchi, Wheezes - Cardiovascular Exam Cardiovascular Exam: REGULAR RHYTHM, +S1, +S2. absent: Gallop, Rubs, Murmur - GI/Abdominal Exam GI & Abdominal Exam: Soft, Normal Bowel Sounds. absent: Distended, Firm, Guarding, Rigid, Tenderness, Organomegaly - Extremities Exam Extremities Exam: absent: Pedal Edema, Tenderness - Neurological Exam Neurological Exam: absent: Alert, Awake, Oriented x3 - Psychiatric Exam Psychiatric exam: Normal Affect, Normal Mood - Skin Skin Exam: Dry, Intact, Normal Color, Warm Assessment and Plan - Assessment and Plan (Free Text) Assessment: 1) Hypernatremia -resolved. will continue to monitor as patient has hx of intermittent hypernatremia 2) Severe Dementia 2/2 TBI -non-verbal at baseline -passed bedside swallow eval in E.D, tolerating applesauce/pudding/rony crackers currently -continue [facility] altered diet with thin liquids -Accuchecks Q6 - Aricept 5 mg po qd - Namenda 5 mg po qd - Seroquel 50 mg po HS 3. Seizure disorder - Neurology, Dr. Rodríguez consulted. 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 had previously reports not able to care for him at home. Multiple calls made out to patient's today to discuss treatment plans and placement, awaiting for call back. Patient seen, reviewed, and discussed with attending physician Dr. Gagnon
[2019-01-07 00:11] VITALS: TEMP 97.8
--- NOTE | 2019-01-07 08:58 | CP.PCM.PN ---
Subjective - Date & Time of Evaluation Date of Evaluation: 01/07/19 Time of Evaluation: 08:57 - Subjective Subjective: Medicine Progress Note for Dr. Gagnon Patient seen and examined at bedside with . No acute events overnight per staff. Patient is resting in bed comfortably. Unable to obtain further ROS due to mental status. Treatment plans discussed with patients's on discharge to home this afternoon. Objective - Vital Signs/Intake and Output Vital Signs (last 24 hours): Temp Pulse Resp BP Pulse Ox 97.8 F 69 20 130/93 H 97 01/07/19 08:32 01/07/19 08:32 01/07/19 08:32 01/07/19 08:32 01/07/19 08:32 - Medications Medications: Current Medications Aspirin (Aspirin Chewable) 81 mg PO DAILY [facility] Last Admin: 01/06/19 10:11 Dose: 81 mg Divalproex Sodium (Depakote Sprinkles) 750 mg PO BID [facility] Last Admin: 01/06/19 19:00 Dose: Not Given Donepezil HCl (Aricept) 5 mg PO DAILY [facility] Last Admin: 01/06/19 10:15 Dose: 5 mg Enoxaparin Sodium (Lovenox) 40 mg SC DAILY [facility] Last Admin: 01/06/19 10:11 Dose: 40 mg Memantine (Namenda) 5 mg PO DAILY [facility] Last Admin: 01/06/19 10:15 Dose: 5 mg Quetiapine Fumarate (Seroquel) 50 mg PO HS [facility] Last Admin: 01/06/19 21:27 Dose: 50 mg - Labs Labs: 01/06/19 08:35 01/06/19 08:35 - Additional Findings Additional findings: - Constitutional Appears: Non-toxic, No Acute Distress - Head Exam Head Exam: ATRAUMATIC, NORMOCEPHALIC - ENT Exam ENT Exam: Mucous Membranes Moist - Respiratory Exam Respiratory Exam: Clear to Ausculation Bilateral. absent: Rales, Rhonchi, Wheezes - Cardiovascular Exam Cardiovascular Exam: REGULAR RHYTHM, +S1, +S2. absent: Gallop, Rubs, Murmur - GI/Abdominal Exam GI & Abdominal Exam: Soft, Normal Bowel Sounds. absent: Distended, Firm, Guarding, Rigid, Tenderness, Organomegaly - Extremities Exam Extremities Exam: absent: Pedal Edema, Tenderness - Neurological Exam Neurological Exam: absent: Alert, Awake, Oriented x3 - Psychiatric Exam Psychiatric exam: Normal Affect, Normal Mood - Skin Skin Exam: Dry, Intact, Normal Color, Warm Assessment and Plan - Assessment and Plan (Free Text) Assessment: 1. Hypernatremia -resolved -will continue to monitor as patient has hx of intermittent hypernatremia 2. 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 Seizure disorder - Neurology, Dr. Rodríguez consulted. - Depakote 750 mg po BID - CT of head showed no acute bleed - CXR showed o active pulm dz - Seizure precautions, aspiration precautions - keep head of bed elevated to 30 degrees 4. Scrotal swelling -Scrotal US notable for bilateral hydrocele L>R and incidental epidydmal cyst 5. UTI - UA positive with 7 WBC, +nitrates, +LE and few bacteria - rocephin IV 1 gm qd (01/02-01/05) - Repeat urine culture negative 6. Prophylactic measures - SCDs and Lovenox SC 40mg for DVT, no indication for GI ppx at this time DNR/DNI Dispo: Patient is medically stable to be discharge home. Treatment plans discussed with and attending physician in detail Patient seen, reviewed, and discussed with attending physician Dr. Gagnon
[2019-01-07] MEDS: Enoxaparin 40 mg Syringe SC SCH (10:44)
[2019-01-07] MEDS: Divalproex 125 mg Sprinkle Capsule PO SCH (10:45)
[2019-01-07 15:49] VITALS: BP 150/76; PULSE 75; O2SAT 98
== END 2019-01-07 16:02 | disposition home or self-care (01) | DRG 641 ==
LOC: C.ER 17:01 → C.5S 21:11 → OBSVTOIN 01-01 15:26
PROVIDERS: ADMIT Internal Medicine Pulmonary Disease; ATTEND Internal Medicine Pulmonary Disease
PROC: 4A10X4Z Monitoring of Central Nervous Electrical Activity, External Approach (ICD-10-PCS; principal; 2019-01-03)
DX: E87.0 Hyperosmolality and hypernatremia (principal); R62.7 Adult failure to thrive; F02.81 Dementia in other diseases classified elsewhere, unspecified severity, with behavioral disturbance; G40.509 Epileptic seizures related to external causes, not intractable, without status epilepticus; N39.0 Urinary tract infection, site not specified; R47.01 Aphasia; B35.6 Tinea cruris; E86.0 Dehydration; G30.9 Alzheimer's disease, unspecified; I12.9 Hypertensive chronic kidney disease with stage 1 through stage 4 chronic kidney disease, or unspecified chronic kidney disease; J44.9 Chronic obstructive pulmonary disease, unspecified; N18.9 Chronic kidney disease, unspecified; N43.3 Hydrocele, unspecified; N50.89 Other specified disorders of the male genital organs; R32 Unspecified urinary incontinence; Z51.5 Encounter for palliative care; Z66 Do not resuscitate; E87.1 Hypo-osmolality and hyponatremia; S06.9X9S Unspecified intracranial injury with loss of consciousness of unspecified duration, sequela; Z87.820 Personal history of traumatic brain injury; Z87.891 Personal history of nicotine dependence; Z79.899 Other long term (current) drug therapy; Z91.81 History of falling